=== PATIENT | male | born 1970 | race Hispanic/Latino ===

== ENCOUNTER 2024-12-23 17:19 | Inpatient (IN) | payer SELFPAY ==
[~2024-12-23] VITALS: Ht 157.5 cm; Wt 65.9 kg
[2024-12-23 23:50] VITALS: O2SAT 98
--- NOTE | 2024-12-23 23:50 | NUR ---
RECIEVED PT FROM [facility] VIA EMS. PT AWAKE, ALERT, AND ORIENTED. PT ON HEPARIN DRIP FROM [facility]. PT DENIES CHEST PAIN OR SOB. S/P LHC VIA RIGHT RADIAL AT [facility]. RIGHT RADIAL SITE INTACT, NO HEMATOMA, PULSE PRESENT. ORIENTED TO ROOM AND CALL LIGHT. TELEMETRY MONITORING CALL LIGHT WITHIN REACH
[2024-12-24] VITALS (8 sets, daily range): BP systolic 124–156; BP diastolic 64–96; PULSE 82–98; RESP 16–20; TEMP 98–98.6; O2SAT 97–99
[2024-12-24] MEDS ORDERED: ASPI-449 PO (00:19)
[2024-12-24] MEDS: NITROGLYCERIN 1GM OINT 1 INCH/1GM TD SCH (01:30)
--- NOTE | 2024-12-24 02:57 | HP ---
History of Present Illness Reason for Visit: chest pain History of Present Illness Mr. Patel is a 54-year-old male that was seen and examined today on 12/24/2024. Patient is a good historian of personal health Patient reports that he began to have chest pain on 12/19/2024. Location is left side of chest. Pain radiated to his right arm and the left side of his jaw. Duration is on and off. Character is described as pressure. Symptoms are aggravated with physical activity such as walking and landscaping. There was no alleviating factors. Patient denies any associated shortness of breath. Patient was evaluated at [facility] and underwent an EGD which showed gastric ulcers. Patient also had a heart catheterization on 12/23/2024 that showed multivessel disease. Patient was transferred to [facility] so he could be evaluated by cardiovascular surgeon. Past Medical History Patient History: Hypertension MOTHER Unknown FATHER ADDITIONAL PAST MEDICAL HISTORY: [Anemia, hypertension] SOCIAL HISTORY: [Negative for smoking, alcohol use, drug use. 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 Patient lives alone. Patient is typically independent of all his ADLs. Patient denies difficulty pain is bills.] SURGICAL HISTORY: [Heart stents] Review of Systems General: No Fever, No Chills, No Night Sweats, No Fatigue, No Malaise, No Appetite, No Other HEENT: No Head Aches, No Visual Changes, No Eye Pain, No Ear Pain, No Dysphasia, No Sinus Congestion, No Post Nasal Drip, No Sore Throat, No Other Pulmonary: No Dyspnea, No Cough, No Pleuritic Chest Pain, No Other Cardiovascular: Chest Pain; No: Palpitations, Orthopnea, Paroxysmal Noc. Dyspnea, Edema, Lt Headedness, Other Gastrointestinal: No: Nausea, Vomiting, Abdominal Pain, Diarrhea, Constipation, Melena, Hematochezia, Other Genitourinary: No Dysuria, No Frequency, No Incontinence, No Hematuria, No Retention, No Other Musculoskeletal: No: other, neck pain, shoulder pain, arm pain, back pain, hand pain, leg pain, foot pain Skin: No Urticaria, No Rash, No Other Neurological: No: Weakness, Numbness, Incoordination, Change in speech, Confusion, Seizures, Other Allergies: Coded Allergies: No Known Drug Intolerances (Unverified Allergy, Unknown, 12/24/24) Scheduled Aspirin (Adult Low Dose Aspirin EC), 81 MG PO DAILY, (Reported) Exam Vital Signs Vital Signs Date Time Temp Pulse Resp B/P (MAP) Pulse Ox O2 Delivery O2 Flow Rate FiO2 12/24/24 00:07 98.2 98 18 136/64 98 Room Air 12/23/24 23:50 0 21 General Appearance: Alert, Oriented X3, Cooperative, mild distress HEENT: Atraumatic, PERRLA, EOMI, Mucous membr. moist/pink Respiratory: Clear to auscultation, Normal air movement, NL respiratory effort Cardiovascular: Regular rate, Regular rhythm, Normal S1, Normal S2 Abdominal: Normal bowel sounds, Soft, No tenderness Extremities: No edema Skin: No significant lesion Neuro: Normal speech, Strength at 5/5 X4 ext, Sensation intact, Cranial nerves 3-12 NL Psych/Mental Status: Mental status NL, Mood NL, Thoughts/Content NL Assessment/Plan ASSESSMENT: [ ACS, POA Hypertension Anemia] PLAN: [ Admit patient to pccu as inpatient status. Place patient on telemetry monitoring. Patient will be followed by cardiology service. Patient will be followed by Cardiothoracic Service. Keep patient NPO. Check preprocedure labs, CBC, cMP, magnesium, phosphorus, PTT, UA, type and screen, EKG, CXR Continue heparin drip per orders from previous facility Aspirin 81 mg by mouth once daily Further anticoagulation per Cardiology or cardiovascular service. As needed analgesia with morphine. Nitro paste 0.5 in to anterior chest wall every 8 hours. Hydralazine 10 mg IV every 4 hours for systolic blood pressure greater than 160 mmHg Check iron panel, follow up with the results Check serum ferritin, follow up with the results Check LDH, reticulocyte count, peripheral smear, follow up with the results Monitor labs Transfuse packed red blood cells for hemoglobin less than 7 mg/dL GI prophylaxis, famotidine DVT prophylaxis, Jose's and SCDs and heparin drip as stated above. ADVANCED CARE PLANNING 1. Which of the following were discussed? Hospice Care - Yes Therapeutic options - yes Advance Directives - Yes - patient states he does not have any advance directives in place at this time, however his son Keny Chavis can make decisions for him if he becomes unable. Other discussions - patient wishes to remain a full code at this time. 2. Discussed with who? Patient 3. Voluntary nature of this service was explained to the patient? Yes 4. Amount of time spent - ___16 minutes____ 5. Reviewed by Physician? (if this service was performed by NPP) Yes This document was generated in part using voice recognition software, occasional wrong word or sound alike substitutions may have occurred due to the inherent limitations of voice recognition software. Read the chart carefully and recognize using context, where the substitutions have occurred. Although every effort was made to edit the content, microcomputer technician and typing errors may occur ATTESTATION BY PHYSICIAN I have seen and examined the patient. I reviewed the documentation, medical decision making, and treatment plan as noted by the mid-level provider above. I agree with the findings and plan of care. ANA MARIA CUI [facility] Dec 24, 2024 02:57
[2024-12-24 03:42] LABS: IMMATURE GRANULOCYTE ABSOLUTE 0.03 K/uL (0-1); NUCLEATED RED BLOOD CELLS 0.0 % (0.0-0.19); PLATELET COUNT (AUTO) 377 K/uL (130-400); RED BLOOD CELL COUNT(AUTO) 3.78 MIL/uL (4.50-6.20); RED CELL DISTRIBUTION WIDTH 19.6 % (11.0-15.5); WHITE BLOOD COUNT (AUTO) 6.4 K/uL (4.8-10.8)
[2024-12-24 03:52] LABS: INR 1.04 (0.85-1.15)
[2024-12-24 03:56] LABS: % IRON SATURATION 5.5 % (30-44); IRON, SERUM 20.0 mcg/dL (65-175)
[2024-12-24 04:04] LABS: ASPARTATE AMINOTRANSFERASE 34.0 U/L (10-37); CREATININE 0.9 mg/dL (0.5-1.3); GLOMERULAR FILTR. RATE CALC 100.0 mL/min (>90); GLUCOSE,RANDOM 105.0 mg/dL (70-105); LACTATE DEHYDROGENASE 327.0 U/L (81-234); PHOSPHORUS 2.9 mg/dL (2.5-4.9); SODIUM SERUM 134.0 mmol/L (136-145); TOTAL PROTEIN, SERUM 6.5 g/dL (6.0-8.3); UREA NITROGEN, BLOOD 16.0 mg/dL (7-18)
--- NOTE | 2024-12-24 06:02 | EKG ---
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
--- NOTE | 2024-12-24 08:08 | CONS ---
[facility] CARDIOLOGY CONSULTATION NOTE Date Patient Seen: Dec 24, 2024 Time of Visit: 08:03 Reason for Consultation: CAD History of Present Illness: Patient is a 54-year-old male presents as a transfer from [facility] for coronary artery bypass grafting. He presented initially with complaints of chest pain, with elevated high sensitive troponin with diagnosis of ACS-NSTEMI. Patient is also found via anemic with a hemoglobin of 7.1. Transthoracic echocardiogram revealed a normal left ventricular systolic function with EF 55- 60%. EGD present negative for active bleeding ulcers. He underwent left heart catheterization, coronary angiography revealing multivessel coronary artery disease, evaluated by Cardiothoracic surgery and coronary artery bypass grafting was recommended. Past Medical History: no PMH prior to hospitalization Past Surgical History: denies Family History: denies early CAD Social History: Negative for smoking, alcohol use, drug use. 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 Patient lives alone. Patient is typically independent of all his ADLs. Patient denies difficulty pain is bills Current Meds: Current Medications Medications Dose Ordered Sig/Mila Start Time Stop Time Status Last Admin Heparin Sodium (Porcine) *calculation based on ACTUAL B... AD PRN 12/24/24 02:30 01/23/25 02:29 12/24/24 02:07 Heparin Sodium/ Dextrose 250 ml @ 0 mls/hr Q6H 12/24/24 02:30 01/23/25 02:29 12/24/24 02:08 Nitroglycerin 0.5 inch Q8H5 12/24/24 01:30 01/23/25 01:29 Acetaminophen 650 mg Q6H PRN 12/24/24 01:30 01/23/25 01:29 12/24/24 02:02 Aspirin 81 mg DAILY 12/24/24 09:00 01/23/25 08:59 Acetaminophen 650 mg Q6H PRN 12/24/24 03:00 01/23/25 02:59 Famotidine 20 mg DAILY 12/24/24 09:00 01/23/25 08:59 Hydralazine HCl 10 mg Q6H PRN 12/24/24 03:00 01/23/25 02:59 Morphine Sulfate 2 mg Q4H PRN 12/24/24 03:00 12/31/24 02:59 Lactulose 20 gm BID PRN 12/24/24 03:00 01/23/25 02:59 Ondansetron HCl 4 mg Q6H PRN 12/24/24 03:00 01/23/25 02:59 Review of Systems: `0 point ROS negative unless stated. Physical Examination: GENERAL: [No acute distress.] HEAD: [Normal with no signs of head trauma.] NECK: [Supple .Normal carotid upstrokes without bruits.] LUNGS: [Clear breath sounds bilaterally.No wheezes, or rhonchi.] HEART: [Normal rate and rhythm. Normal S1 and S2 without murmurs, gallop or rub.] VASC: [Peripheral pulses +2 bilaterally.] ABD: soft, nontender, no masses] EXT: [No clubbing, cyanosis or edema.] SKIN: [No rashes or lesions noted.] NEURO: [Awake, alert, and oriented x3. No focal sensory or strength deficits noted.] Vital Signs (last 8hr) Date Time Temp Pulse Resp B/P (MAP) Pulse Ox O2 Delivery O2 Flow Rate FiO2 12/24/24 07:00 98.6 84 16 138/85 99 Room Air 12/24/24 03:00 98.2 82 18 124/85 99 Room Air 12/24/24 00:07 98.2 98 18 136/64 98 Room Air Laboratory: [ ] Hematology Labs: Test 12/24/24 03:16 Range/Units White Blood Count 6.4 4.8-10.8 K/uL Red Blood Count 3.78 L 4.50-6.20 MIL/uL Hemoglobin 8.3 L 14.0-18.0 g/dL Hematocrit 27.4 L 42-54 % Mean Corpuscular Volume 72.5 L 79-99 fL Mean Corpuscular Hemoglobin 22.0 L 27.0-33.0 pg Mean Corpuscular Hemoglobin Concent 30.3 L 32.0-36.0 g/dL Red Cell Distribution Width 19.6 H 11.0-15.5 % Platelet Count 377 130-400 K/uL Mean Platelet Volume 9.6 7.5-10.5 fL Immature Granulocyte % (Auto) 0.5 0-1 % Neutrophils (%) (Auto) 58.8 40.0-77.0 % Lymphocytes (%) (Auto) 28.6 21.0-51.0 % Monocytes (%) (Auto) 8.9 3.0-13.0 % Eosinophils (%) (Auto) 2.7 0.0-8.0 % Basophils (%) (Auto) 0.5 0.0-5.0 % Neutrophils # (Auto) 3.8 1.8-7.7 K/uL Lymphocytes # (Auto) 1.8 1.0-4.8 K/uL Monocytes # (Auto) 0.6 0.1-1.0 K/uL Eosinophils # (Auto) 0.17 0.00-0.70 K/uL Basophils # (Auto) 0.03 0.00-0.20 K/uL Absolute Immature Granulocyte (auto 0.03 0-1 K/uL Nucleated Red Blood Cells 0.0 0.0-0.19 % Red Blood Cell Morphology See comments Reticulocyte Count (auto) 2.08710 H 0.42-2.23 % Immature Reticulocyte Fraction 42.60 H 0.18-0.48 % Chemistry Labs: Test 12/24/24 03:16 Range/Units Sodium Level 134 L 136-145 mmol/L Potassium Level 3.9 3.5-5.1 mmol/L Chloride Level 101 101-111 mmol/L Carbon Dioxide Level 24 21-32 mmol/L Blood Urea Nitrogen 16 7-18 mg/dL Creatinine 0.9 0.5-1.3 mg/dL Glomerular Filtration Rate Calc 100 >90 mL/min Random Glucose 105 70-105 mg/dL Hemoglobin A1c 5.8 4.0-6.0 % Estimated Average Glucose (eAG) 120 70-126 mg/dL Total Calcium 8.4 L 8.5-10.1 mg/dL Phosphorus Level 2.9 2.5-4.9 mg/dL Magnesium Level 1.90 1.80-2.40 mg/dL Iron Level 20 L 65-175 mcg/dL Total Iron Binding Capacity 360 250-450 mcg/dL Percent Iron Saturation 5.5 L 30-44 % Total Bilirubin 0.3 0.2-1.0 mg/dL Aspartate Amino Transf (AST/SGOT) 34 10-37 U/L Alanine Aminotransferase (ALT/SGPT) 42 12-78 U/L Alkaline Phosphatase 56 50-136 U/L Lactate Dehydrogenase 327 H 81-234 U/L Total Protein 6.5 6.0-8.3 g/dL Albumin 2.7 L 3.5-5.0 g/dL Coagulation Labs: Test 12/24/24 03:16 Range/Units Prothrombin Time 11.0 9.6-11.6 SEC Prothromb Time International Ratio 1.04 0.85-1.15 Activated Partial Thromboplast Time 107.8 #*H 26.3-35.5 SEC Assessment: ACS-NSTEMI MVCAD Hypertension Anemia Plan: Continue ASA Resume high intensity statin If surgery not planned next 1-2 days, will add beta dante Unclear of what medications he was receiving at [facility]. Medication reconciliation needs to be performed. There was no discharge summary in the paper chart. I've asked primary RN to attempt to obtain additional information from the transferring hospital, and relay to admitting team issues regarding med rec. Timing of CABG per MACEY OQUENDO DO Dec 24, 2024 08:08
[2024-12-24] MEDS: FAMOTIDINE 20MG TAB PO SCH (08:31)
[2024-12-24] MEDS: ASPIRIN 81 MG EC TAB PO SCH (08:31)
--- NOTE | 2024-12-24 09:13 | HMCIMG ---
CHEST 1VW REASON: pre procedural COMPARISON: None. FINDINGS: Single view of the chest was obtained. Lungs are clear. There is hyperaeration of lungs with flattening of both hemidiaphragms.. Heart size is normal. There is no pulmonary vascular congestion. Mediastinum and bony thorax appear unremarkable. IMPRESSION: 1. No evidence of airspace consolidation or pulmonary venous congestion 2. Hyperaeration of lungs suggesting of chronic obstructive pulmonary disease
--- NOTE | 2024-12-24 10:31 | NUR ---
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 HAS SON WHO LIVES IN [place] BUT COMES BACK AND FORTH ' ALL THE TIME' SO HE WILL SUPPLY TRANSPORT ON DISCHARGE. STATES THAT HE WAS A CLIENT OF [facility] THE [place] ([address] [place]WHEN HE IS DISCHARGED PLANS TO USE THAT HIS PRIRY CLINIC AGAIN. DISCUSSED GOOD RX- AND ATTEMPTED TO SHOW HIM HOW TO INSTALL ON HIS PHONE BUT HE STATES HIS SON WOULD HELP HIM. COMMUNITY [employer] INFO GIVEN Addendum: 12/25/24 at 1036 by JEREMY SHAFFER RN CM Amended: Links added.
[2024-12-25] VITALS (8 sets, daily range): BP systolic 120–162; BP diastolic 75–93; PULSE 70–94; RESP 20; TEMP 97.9–99.2; O2SAT 98–99
[2024-12-25 09:29] LABS: NUCLEATED RED BLOOD CELLS 0.0 % (0.0-0.19); PLATELET COUNT (AUTO) 384.0 K/uL (130-400); RED BLOOD CELL COUNT(AUTO) 4.02 MIL/uL (4.50-6.20); RED CELL DISTRIBUTION WIDTH 19.5 % (11.0-15.5); WHITE BLOOD COUNT (AUTO) 5.4 K/uL (4.8-10.8)
[2024-12-25 09:38] LABS: CREATININE 1.0 mg/dL (0.5-1.3); GLOMERULAR FILTR. RATE CALC 88.0 mL/min (>90); GLUCOSE,RANDOM 146.0 mg/dL (70-105); SODIUM SERUM 137.0 mmol/L (136-145); UREA NITROGEN, BLOOD 13.0 mg/dL (7-18)
[2024-12-25 09:42] LABS: ASPARTATE AMINOTRANSFERASE 30.0 U/L (10-37); TOTAL PROTEIN, SERUM 6.6 g/dL (6.0-8.3)
--- NOTE | 2024-12-25 13:05 | PN ---
This is a 54-year-old male who presented to [facility] with a non-STEMI. He underwent left heart catheterization which showed severe multi-vessel coronary artery disease with mid to apical inferior hypokinesis, LVEF 45-50%. He underwent echocardiogram 12/19/2024 which showed an ejection fraction of 55- 60%, mild LVH, normal-sized left atrium, mild mitral valve regurgitation and mild tricuspid valve regurgitation. He was transferred to [facility] for CABG. He is currently in sinus rhythm with heart rates in the 80s. His most recent blood pressure is 137/90. White blood count 5.4, hemoglobin 8.8, hematocrit 29.0, platelets 384, creatinine 1.0, potassium 3.7, magnesium 1.80. He denies chest pain, shortness or breath, dizziness or weakness. On exam, he is in no acute distress, regular rate and rhythm, lungs are clear to auscultation bilaterally, no lower extremity edema is noted. Assessment: 1. Non-STEMI. 2. Multi-vessel coronary artery disease. 3. Mild ischemic cardiomyopathy with LVEF 45-50 by left heart catheterization. 4. Hypertension. 5. Anemia. Plan: 1. He presented to [facility] with a non-STEMI and underwent left heart catheterization showing severe multivessel coronary artery disease. He is pending evaluation by CT surgery for consideration of CABG. 2. Continue aspirin 81 mg once daily and atorvastatin 40 mg once daily. 3. He has been hypertensive. Start metoprolol tartrate 25 mg twice daily. 4. We will follow the patient. Vitals/Labs Vital Signs Date Time Temp Pulse Resp B/P (MAP) Pulse Ox O2 Delivery O2 Flow Rate FiO2 12/25/24 08:00 98 Room Air* 0 21 12/25/24 07:36 98.6 83 20 137/90 Laboratory Tests 12/25/24 09:23 MATT TURNER Dec 25, 2024 13:05
--- NOTE | 2024-12-25 14:32 | PN ---
[facility] PROGRESS NOTE Date of Service: Dec 25, 2024 Time of Service: 14:31 SUBJECTIVE: This is a 54-year-old male who presented to [facility] with a non-STEMI. He underwent left heart catheterization which showed severe multi-vessel coronary artery disease with mid to apical inferior hypokinesis, LVEF 45-50%. He underwent echocardiogram 12/19/2024 which showed an ejection fraction of 55- 60%, mild LVH, normal-sized left atrium, mild mitral valve regurgitation and mild tricuspid valve regurgitation. He was transferred to [facility] for CABG. 12/25 patient remains admitted to the PCU, case discussed with the RN, no acute events overnight, he denied chest pain, shortness shortness for breath, no nausea, no vomiting, no abdominal discomfort. Cardiology input noted and appreciated, patient to continue aspirin 81 mg p.o. daily and atorvastatin 40 mg p.o. daily. Continue metoprolol tartrate 25 mg p.o. b.i.d.. Pending evaluation by CT surgery for consideration for CABG. Discussed with the patient. REVIEW OF SYSTEMS CONSTITUTIONAL: Denies fevers, chills, or night sweats. No unintentional weight loss reported. NEUROLOGICAL: Denies headache, amaurosis fugax, motor weakness, sensory deficit, vertigo/spinning sensation, gait abnormalities, or tremors. ENT: No hearing loss, otalgia, otorrhea, rhinitis, rhinorrhea, hoarseness, or sore throat. CARDIOVASCULAR: Denies any exertional angina, dyspnea on exertion, orthopnea, paroxysmal nocturnal dyspnea, palpitations, life-threatening arrhythmias, claudication. PULMONARY: Denies any shortness of breath, cough, phlegm/sputum, hemoptysis, pleuritic chest pain. SLEEP: Denies morning headaches, daytime somnolence or napping. Denies difficulty falling asleep, staying asleep, waking from sleep. Denies knowledge of snoring. GASTROINTESTINAL: Denies any type of dysphagia to either liquids or solids. Denies nausea, vomiting, pyrosis, early satiety, abdominal pain, diarrhea, constipation, or changes in stool consistency or caliber. Denies coffee-ground emesis, hematemesis, hematochezia, or melanotic stools. GENITOURINARY: Denies frequency, urgency, nocturia, hematuria or incontinence (Storage/Irritative symptoms.) Low urinary stream, straining to void, urinary intermittency or hesitancy, splitting of the voiding stream, terminal dribbling. ENDOCRINOLOGIC: Denies polyuria, polydipsia, polyphagia or heat/cold intolerances. HEMATOLOGIC: Denies thrombophilia/previous clots, or coagulopathy/bleeding disorders. ONCOLOGIC: Denies personal history of malignancy. DERMATOLOGIC: Denies rashes or pruritus. PSYCHIATRIC: Denies any suicidal or homicidal ideation. Denies hallucinations. PHYSICAL EXAM GENERAL APPEARANCE: The patient is awake, alert, and oriented, in no acute cardiopulmonary distress. NEUROLOGICAL: Cranial nerves II-XII grossly intact. Motor is 5/5 in bilateral upper and lower extremities proximal to distal. No sensory deficits. HEENT: Face is symmetric. Pupils are equal and reactive. Extraocular movements are intact. NECK: Supple. No JVD. No thyromegaly. No submental, submandibular, pre- /postauricular, occipital or supraclavicular lymphadenopathy. CHEST: Normal chest expansion. No Telemetry. LUNGS: Absence of any rales, rhonchi or any wheezing. CARDIOVASCULAR: Regular. S1 and S2 normal. No appreciable rubs, murmurs or gallops. ABDOMEN: Soft, nontender, and nondistended. There is no rebound, voluntary guarding, or rigidity. : Deferred. No Andres. EXTREMITIES: Non-edematous and not cyanotic. No clubbing. Good capillary refill. SKIN: No skin breakdown. Vital Signs (last 8hr) Date Time Temp Pulse Resp B/P (MAP) Pulse Ox O2 Delivery O2 Flow Rate FiO2 12/25/24 12:00 97.9 85 20 126/75 99 Room Air 12/25/24 08:00 98 Room Air* 0 21 12/25/24 07:36 98.6 83 20 137/90 99 Room Air LABS: Laboratory: Test 12/25/24 09:23 12/25/24 01:39 12/24/24 03:16 Range/Units White Blood Count 5.4 4.8-10.8 K/uL Red Blood Count 4.02 L 4.50-6.20 MIL/uL Hemoglobin 8.8 L 14.0-18.0 g/dL Hematocrit 29.0 L 42-54 % Mean Corpuscular Volume 72.1 L 79-99 fL Mean Corpuscular Hemoglobin 21.9 L 27.0-33.0 pg Mean Corpuscular Hemoglobin Concent 30.3 L 32.0-36.0 g/dL Red Cell Distribution Width 19.5 H 11.0-15.5 % Platelet Count 384 130-400 K/uL Mean Platelet Volume 9.0 7.5-10.5 fL Nucleated Red Blood Cells 0.0 0.0-0.19 % Sodium Level 137 136-145 mmol/L Potassium Level 3.7 3.5-5.1 mmol/L Chloride Level 102 101-111 mmol/L Carbon Dioxide Level 26 21-32 mmol/L Blood Urea Nitrogen 13 7-18 mg/dL Creatinine 1.0 0.5-1.3 mg/dL Glomerular Filtration Rate Calc 88 >90 mL/min Random Glucose 146 H 70-105 mg/dL Total Calcium 8.6 8.5-10.1 mg/dL Magnesium Level 1.80 1.80-2.40 mg/dL Total Bilirubin 0.2 0.2-1.0 mg/dL Aspartate Amino Transf (AST/SGOT) 30 10-37 U/L Alanine Aminotransferase (ALT/SGPT) 54 12-78 U/L Alkaline Phosphatase 63 50-136 U/L Total Protein 6.6 6.0-8.3 g/dL Albumin 2.7 L 3.5-5.0 g/dL Activated Partial Thromboplast Time 58.4 #H 26.3-35.5 SEC Immature Granulocyte % (Auto) 0.5 0-1 % Neutrophils (%) (Auto) 58.8 40.0-77.0 % Lymphocytes (%) (Auto) 28.6 21.0-51.0 % Monocytes (%) (Auto) 8.9 3.0-13.0 % Eosinophils (%) (Auto) 2.7 0.0-8.0 % Basophils (%) (Auto) 0.5 0.0-5.0 % Neutrophils # (Auto) 3.8 1.8-7.7 K/uL Lymphocytes # (Auto) 1.8 1.0-4.8 K/uL Monocytes # (Auto) 0.6 0.1-1.0 K/uL Eosinophils # (Auto) 0.17 0.00-0.70 K/uL Basophils # (Auto) 0.03 0.00-0.20 K/uL Absolute Immature Granulocyte (auto 0.03 0-1 K/uL Red Blood Cell Morphology See comments Reticulocyte Count (auto) 2.45918 H 0.42-2.23 % Immature Reticulocyte Fraction 42.60 H 0.18-0.48 % Prothrombin Time 11.0 9.6-11.6 SEC Prothromb Time International Ratio 1.04 0.85-1.15 Hemoglobin A1c 5.8 4.0-6.0 % Estimated Average Glucose (eAG) 120 70-126 mg/dL Phosphorus Level 2.9 2.5-4.9 mg/dL Iron Level 20 L 65-175 mcg/dL Total Iron Binding Capacity 360 250-450 mcg/dL Percent Iron Saturation 5.5 L 30-44 % Lactate Dehydrogenase 327 H 81-234 U/L Current Medications Medications (Trade) Dose Ordered Sig/Mila Route PRN Reason Start Time Stop Time Status Last Admin Dose Admin Acetaminophen (TYLenol 325MG TAB) 650 mg Q6H PRN PO MILD PAIN (1-3) 12/24/24 01:30 01/23/25 01:29 12/24/24 02:02 650 MG Acetaminophen (TYLenol 325MG TAB) 650 mg Q6H PRN PO TEMPERATURE GREATER THAN 101.5 12/24/24 03:00 01/23/25 02:59 Aspirin (Aspirin 81mg Ec Tab) 81 mg DAILY PO 12/24/24 09:00 01/23/25 08:59 12/25/24 08:33 81 MG Atorvastatin Calcium (LIPItor 40MG) 40 mg HS PO 12/24/24 21:00 01/23/25 20:59 12/24/24 20:35 40 MG Famotidine (Pepcid 20mg Tab) 20 mg DAILY PO 12/24/24 09:00 01/23/25 08:59 12/25/24 08:33 20 MG Heparin Sodium (Porcine) (HEParin 5,000 UNIT VIAL) *calculation based on ACTUAL B... AD PRN IV HEPARIN PROTOCOL 12/24/24 02:30 01/23/25 02:29 12/24/24 17:32 5,000 UNIT Heparin Sodium/ Dextrose 250 ml @ 0 mls/hr Q6H IV 12/24/24 02:30 01/23/25 02:29 12/25/24 13:46 12.19 MLS/HR Hydralazine HCl (APRESOLine 20MG INJ) 10 mg Q6H PRN IV For:SBP above 160;DBP above 90 12/24/24 03:00 01/23/25 02:59 Lactulose (Constulose 20gm/ 30ml Udcup) 20 gm BID PRN PO CONSTIPATION 12/24/24 03:00 01/23/25 02:59 Metoprolol Tartrate (loprESSOR) 25 mg BID PO 12/25/24 21:00 01/24/25 20:59 Morphine Sulfate (morPHINE 2MG SYG) 2 mg Q4H PRN IVP SEVERE PAIN (7-10) 12/24/24 03:00 12/31/24 02:59 Nitroglycerin (Nitroglycerin 1gm Oint) 0.5 inch Q8H5 TD 12/24/24 01:30 01/23/25 01:29 12/25/24 13:42 0.5 INCH Ondansetron HCl (zoFRAN 4MG INJ) 4 mg Q6H PRN IV NAUSEA/VOMITING 12/24/24 03:00 01/23/25 02:59 DIAGNOSTICS / RADIOLOGY: [ ] ASSESSMENT: 1. Non-STEMI. 2. Multi-vessel coronary artery disease. 3. Mild ischemic cardiomyopathy with LVEF 45-50 by left heart catheterization. 4. Hypertension. 5. Anemia. PLAN: NEURO: Minimize central acting medications as possible. Fall Precautions. Well lighted room through the day and minimize interruptions through the night to prevent acute delirium. PULMONARY: Supplemental 02 as needed BiPAP as necessary, for respiratory distress Titrate Fio2 to keep Spo2 > or = 90% DuoNebs and CPT as needed IS hourly while awake for pulmonary hygiene prn Out of bed to chair as tolerated Maintain aspiration precautions at all times CARDIOVASCULAR: Follow hemodynamics. Vital signs per facility protocol GI & NUTRITION: Continue nutritional support Aspirations precautions Prokinetic agents and laxatives as needed KIDNEYS & ELECTROLYTES: Strict monitoring of intake and output Daily weights Avoid nephrotoxic agents Monitor electrolytes and replace as needed Goal urine output of 30mL/hr or 0.5mL/kg/hr Medications to be dosed according to renal function. Avoid contrast if possible ENDOCRINE: Maintain blood glucose between 100-180 at all times. Insulin sliding scale for blood glucose management Hypoglycemia and hyperglycemia protocol in place INFECTIOUS DISEASE: Trend temperature, WBC and procalcitonin level Follow cultures, deescalate antibiotics as soon as possible. Panculture if new onset fever HEMATOLOGY & COAGULATION: Monitor H&H. Keep Hgb > 7 Transfuse 1 unit of PRBC for Hgb < 7 Transfuse 1 pack of platelets of platelets < 20, 000 Watch for any signs and symptoms of bleeding SKIN: Pressure ulcer prevention per facility protocol Specialty mattress as needed ORTHO/REHAB Continue PT/OT PRN: MEDICATIONS Tylenol 650 mg po every 4 hrs for fever zofran 4 mg IV every 6 hrs for n/v Hydralazine 5 mg IV every 4 hrs systolic pressure > 160 bowel regiment: lactulose 20 gm PO BID PRN constipation Supportive measures: Continue GI and DVT prophylaxis Disposition: Pending evaluation by CT surgery for consideration of CABG. All questions answered time spent: > 35 min BURKE SULLIVAN MD Dec 25, 2024 14:32
[2024-12-26] VITALS (7 sets, daily range): BP systolic 138–154; BP diastolic 79–90; PULSE 71–81; RESP 18–20; TEMP 97.6–98.5; O2SAT 100
--- NOTE | 2024-12-26 08:43 | PN ---
[facility] PROGRESS NOTE Date of Service: Dec 26, 2024 Time of Service: 08:43 SUBJECTIVE: This is a 54-year-old male who presented to [facility] with a non-STEMI. He underwent left heart catheterization which showed severe multi-vessel coronary artery disease with mid to apical inferior hypokinesis, LVEF 45-50%. He underwent echocardiogram 12/19/2024 which showed an ejection fraction of 55- 60%, mild LVH, normal-sized left atrium, mild mitral valve regurgitation and mild tricuspid valve regurgitation. He was transferred to [facility] for CABG. 12/25 patient remains admitted to the PCU, case discussed with the RN, no acute events overnight, he denied chest pain, shortness shortness for breath, no nausea, no vomiting, no abdominal discomfort. Cardiology input noted and appreciated, patient to continue aspirin 81 mg p.o. daily and atorvastatin 40 mg p.o. daily. Continue metoprolol tartrate 25 mg p.o. b.i.d.. Pending evaluation by CT surgery for consideration for CABG. Discussed with the patient. 12/26 patient remains admitted to the PCU, case discussed with the RN, no acute events overnight, the time of my visit the patient is comfortably in bed, alert oriented x3, eating breakfast, tolerating well, denies nausea, no vomiting, no abdominal discomfort, he denies chest pain, no shortness a breath. Remains on aspirin 81 mg p.o. daily, atorvastatin and metoprolol 25 mg p.o. b.i.d.. Pending evaluation by CT surgery for consideration of CABG. REVIEW OF SYSTEMS CONSTITUTIONAL: Denies fevers, chills, or night sweats. No unintentional weight loss reported. NEUROLOGICAL: Denies headache, amaurosis fugax, motor weakness, sensory deficit, vertigo/spinning sensation, gait abnormalities, or tremors. ENT: No hearing loss, otalgia, otorrhea, rhinitis, rhinorrhea, hoarseness, or sore throat. CARDIOVASCULAR: Denies any exertional angina, dyspnea on exertion, orthopnea, paroxysmal nocturnal dyspnea, palpitations, life-threatening arrhythmias, claudication. PULMONARY: Denies any shortness of breath, cough, phlegm/sputum, hemoptysis, pleuritic chest pain. SLEEP: Denies morning headaches, daytime somnolence or napping. Denies difficulty falling asleep, staying asleep, waking from sleep. Denies knowledge of snoring. GASTROINTESTINAL: Denies any type of dysphagia to either liquids or solids. Denies nausea, vomiting, pyrosis, early satiety, abdominal pain, diarrhea, constipation, or changes in stool consistency or caliber. Denies coffee-ground emesis, hematemesis, hematochezia, or melanotic stools. GENITOURINARY: Denies frequency, urgency, nocturia, hematuria or incontinence (Storage/Irritative symptoms.) Low urinary stream, straining to void, urinary intermittency or hesitancy, splitting of the voiding stream, terminal dribbling. ENDOCRINOLOGIC: Denies polyuria, polydipsia, polyphagia or heat/cold intolerances. HEMATOLOGIC: Denies thrombophilia/previous clots, or coagulopathy/bleeding disorders. ONCOLOGIC: Denies personal history of malignancy. DERMATOLOGIC: Denies rashes or pruritus. PSYCHIATRIC: Denies any suicidal or homicidal ideation. Denies hallucinations. PHYSICAL EXAM GENERAL APPEARANCE: The patient is awake, alert, and oriented, in no acute cardiopulmonary distress. NEUROLOGICAL: Cranial nerves II-XII grossly intact. Motor is 5/5 in bilateral upper and lower extremities proximal to distal. No sensory deficits. HEENT: Face is symmetric. Pupils are equal and reactive. Extraocular movements are intact. NECK: Supple. No JVD. No thyromegaly. No submental, submandibular, pre-/po stauricular, occipital or supraclavicular lymphadenopathy. CHEST: Normal chest expansion. No Telemetry. LUNGS: Absence of any rales, rhonchi or any wheezing. CARDIOVASCULAR: Regular. S1 and S2 normal. No appreciable rubs, murmurs or gallops. ABDOMEN: Soft, nontender, and nondistended. There is no rebound, voluntary guarding, or rigidity. : Deferred. No Andres. EXTREMITIES: Non-edematous and not cyanotic. No clubbing. Good capillary refill. SKIN: No skin breakdown. Vital Signs (last 8hr) Date Time Temp Pulse Resp B/P (MAP) Pulse Ox O2 Delivery O2 Flow Rate FiO2 12/26/24 07:57 97.5 74 18 138/86 100 Room Air 12/26/24 03:57 98.4 72 20 138/89 100 Room Air LABS: Laboratory: Test 12/26/24 01:28 12/25/24 09:23 Range/Units Activated Partial Thromboplast Time 66.7 H 26.3-35.5 SEC White Blood Count 5.4 4.8-10.8 K/uL Red Blood Count 4.02 L 4.50-6.20 MIL/uL Hemoglobin 8.8 L 14.0-18.0 g/dL Hematocrit 29.0 L 42-54 % Mean Corpuscular Volume 72.1 L 79-99 fL Mean Corpuscular Hemoglobin 21.9 L 27.0-33.0 pg Mean Corpuscular Hemoglobin Concent 30.3 L 32.0-36.0 g/dL Red Cell Distribution Width 19.5 H 11.0-15.5 % Platelet Count 384 130-400 K/uL Mean Platelet Volume 9.0 7.5-10.5 fL Nucleated Red Blood Cells 0.0 0.0-0.19 % Sodium Level 137 136-145 mmol/L Potassium Level 3.7 3.5-5.1 mmol/L Chloride Level 102 101-111 mmol/L Carbon Dioxide Level 26 21-32 mmol/L Blood Urea Nitrogen 13 7-18 mg/dL Creatinine 1.0 0.5-1.3 mg/dL Glomerular Filtration Rate Calc 88 >90 mL/min Random Glucose 146 H 70-105 mg/dL Total Calcium 8.6 8.5-10.1 mg/dL Magnesium Level 1.80 1.80-2.40 mg/dL Total Bilirubin 0.2 0.2-1.0 mg/dL Aspartate Amino Transf (AST/SGOT) 30 10-37 U/L Alanine Aminotransferase (ALT/SGPT) 54 12-78 U/L Alkaline Phosphatase 63 50-136 U/L Total Protein 6.6 6.0-8.3 g/dL Albumin 2.7 L 3.5-5.0 g/dL Current Medications Medications (Trade) Dose Ordered Sig/Mila Route PRN Reason Start Time Stop Time Status Last Admin Dose Admin Acetaminophen (TYLenol 325MG TAB) 650 mg Q6H PRN PO MILD PAIN (1-3) 12/24/24 01:30 01/23/25 01:29 12/26/24 04:54 650 MG Acetaminophen (TYLenol 325MG TAB) 650 mg Q6H PRN PO TEMPERATURE GREATER THAN 101.5 12/24/24 03:00 01/23/25 02:59 Aspirin (Aspirin 81mg Ec Tab) 81 mg DAILY PO 12/24/24 09:00 01/23/25 08:59 12/25/24 08:33 81 MG Atorvastatin Calcium (LIPItor 40MG) 40 mg HS PO 12/24/24 21:00 01/23/25 20:59 12/25/24 20:43 40 MG Famotidine (Pepcid 20mg Tab) 20 mg DAILY PO 12/24/24 09:00 01/23/25 08:59 12/25/24 08:33 20 MG Heparin Sodium (Porcine) (HEParin 5,000 UNIT VIAL) *calculation based on ACTUAL B... AD PRN IV HEPARIN PROTOCOL 12/24/24 02:30 01/23/25 02:29 12/24/24 17:32 5,000 UNIT Heparin Sodium/ Dextrose 250 ml @ 0 mls/hr Q6H IV 12/24/24 02:30 01/23/25 02:29 12/26/24 05:26 12.2 MLS/HR Hydralazine HCl (APRESOLine 20MG INJ) 10 mg Q6H PRN IV For:SBP above 160;DBP above 90 12/24/24 03:00 01/23/25 02:59 Lactulose (Constulose 20gm/ 30ml Udcup) 20 gm BID PRN PO CONSTIPATION 12/24/24 03:00 01/23/25 02:59 Metoprolol Tartrate (loprESSOR) 25 mg BID PO 12/25/24 21:00 01/24/25 20:59 12/25/24 20:43 25 MG Morphine Sulfate (morPHINE 2MG SYG) 2 mg Q4H PRN IVP SEVERE PAIN (7-10) 12/24/24 03:00 12/31/24 02:59 12/26/24 02:43 2 MG Nitroglycerin (Nitroglycerin 1gm Oint) 0.5 inch Q8H5 TD 12/24/24 01:30 01/23/25 01:29 12/25/24 20:43 0.5 INCH Ondansetron HCl (zoFRAN 4MG INJ) 4 mg Q6H PRN IV NAUSEA/VOMITING 12/24/24 03:00 01/23/25 02:59 DIAGNOSTICS / RADIOLOGY: [ ] ASSESSMENT: 1. Non-STEMI. 2. Multi-vessel coronary artery disease. 3. Mild ischemic cardiomyopathy with LVEF 45-50 by left heart catheterization. 4. Hypertension. 5. Anemia. PLAN: NEURO: Minimize central acting medications as possible. Fall Precautions. Well lighted room through the day and minimize interruptions through the night to prevent acute delirium. PULMONARY: Supplemental 02 as needed BiPAP as necessary, for respiratory distress Titrate Fio2 to keep Spo2 > or = 90% DuoNebs and CPT as needed IS hourly while awake for pulmonary hygiene prn Out of bed to chair as tolerated Maintain aspiration precautions at all times CARDIOVASCULAR: Follow hemodynamics. Vital signs per facility protocol GI & NUTRITION: Continue nutritional support Aspirations precautions Prokinetic agents and laxatives as needed KIDNEYS & ELECTROLYTES: Strict monitoring of intake and output Daily weights Avoid nephrotoxic agents Monitor electrolytes and replace as needed Goal urine output of 30mL/hr or 0.5mL/kg/hr Medications to be dosed according to renal function. Avoid contrast if possible ENDOCRINE: Maintain blood glucose between 100-180 at all times. Insulin sliding scale for blood glucose management Hypoglycemia and hyperglycemia protocol in place INFECTIOUS DISEASE: Trend temperature, WBC and procalcitonin level Follow cultures, deescalate antibiotics as soon as possible. Panculture if new onset fever HEMATOLOGY & COAGULATION: Monitor H&H. Keep Hgb > 7 Transfuse 1 unit of PRBC for Hgb < 7 Transfuse 1 pack of platelets of platelets < 20, 000 Watch for any signs and symptoms of bleeding SKIN: Pressure ulcer prevention per facility protocol Specialty mattress as needed ORTHO/REHAB Continue PT/OT PRN: MEDICATIONS Tylenol 650 mg po every 4 hrs for fever zofran 4 mg IV every 6 hrs for n/v Hydralazine 5 mg IV every 4 hrs systolic pressure > 160 bowel regiment: lactulose 20 gm PO BID PRN constipation Supportive measures: Continue GI and DVT prophylaxis Disposition: Pending evaluation by CT surgery for consideration of CABG. All questions answered time spent: > 35 min BURKE SULLIVAN MD Dec 26, 2024 08:43
[2024-12-26 08:52] LABS: NUCLEATED RED BLOOD CELLS 0.0 % (0.0-0.19); PLATELET COUNT (AUTO) 397.0 K/uL (130-400); RED BLOOD CELL COUNT(AUTO) 4.17 MIL/uL (4.50-6.20); RED CELL DISTRIBUTION WIDTH 19.2 % (11.0-15.5); WHITE BLOOD COUNT (AUTO) 5.5 K/uL (4.8-10.8)
[2024-12-26 09:16] LABS: ASPARTATE AMINOTRANSFERASE 24.0 U/L (10-37); CREATININE 1.1 mg/dL (0.5-1.3); GLOMERULAR FILTR. RATE CALC 79.0 mL/min (>90); GLUCOSE,RANDOM 128.0 mg/dL (70-105); SODIUM SERUM 139.0 mmol/L (136-145); TOTAL PROTEIN, SERUM 6.7 g/dL (6.0-8.3); UREA NITROGEN, BLOOD 14.0 mg/dL (7-18)
[2024-12-26] MEDS ORDERED: PoTASSium chl 10% ELIXIR 20MEQ 20 MEQ/15 ML UDCUP PO PRN (15:00)
[2024-12-26] MEDS ORDERED: MAGNESIUM 2GM PREMIX 50ML 50 ML IV PRN (15:00)
[2024-12-26] MEDS: PoTASSium chloRIDE 20MEQ ER 20 MEQ ERTAB PO PRN (15:18)
[2024-12-26 16:49] LABS: ABG BASE EXCESS -1.0 mmol/L (-2.0-3.0); ABG HCO3 22.0 mmol/L (21.0-28.0); ABG OXYGEN SATURATION 96.9 % (94.0-98.0); ABG PCO2 32 mmHg (35-48); ABG PH 7.451 (7.350-7.450); DEVICE COMMENT LB JOHNNY; PO2, ARTERIAL BG 85.2 mmHg (83.0-108.0); TEMPERATURE, CELSIUS BG 37.0 CELSIUS (35.5-37.0); VENT MODE, BG RA (ROOM AIR)
[2024-12-26] MEDS: LACTULOSE 20 GM/30 ML UDCUP PO PRN (21:30)
[2024-12-27] VITALS (9 sets, daily range): BP systolic 129–158; BP diastolic 78–93; PULSE 73–85; RESP 18; TEMP 97.6–98.7; O2SAT 98–100
[2024-12-27 04:25] LABS: NUCLEATED RED BLOOD CELLS 0.0 % (0.0-0.19); PLATELET COUNT (AUTO) 486.0 K/uL (130-400); RED BLOOD CELL COUNT(AUTO) 4.44 MIL/uL (4.50-6.20); RED CELL DISTRIBUTION WIDTH 19.1 % (11.0-15.5); WHITE BLOOD COUNT (AUTO) 6.6 K/uL (4.8-10.8)
[2024-12-27 04:31] LABS: INR 1.03 (0.85-1.15)
[2024-12-27 04:35] LABS: CREATININE 1.0 mg/dL (0.5-1.3); GLOMERULAR FILTR. RATE CALC 88.0 mL/min (>90); GLUCOSE,RANDOM 129.0 mg/dL (70-105); SODIUM SERUM 135.0 mmol/L (136-145); UREA NITROGEN, BLOOD 14.0 mg/dL (7-18)
[2024-12-27 04:37] LABS: ASPARTATE AMINOTRANSFERASE 35.0 U/L (10-37); LDL DIRECT 130.0 mg/dL (0-99); TOTAL PROTEIN, SERUM 7.6 g/dL (6.0-8.3)
--- NOTE | 2024-12-27 06:30 | NUR ---
PT AWAKE AND ALERT, DENIES DISCOMFORT, NO CHEST PAIN, NO SOB OR LABORED RESPIRATIONS. HEPARIN DRIP TURNED OFF ORDERED. PT NPO FOR SURGERY. TELEMETRY MONITORING, CALL LIGHT WITHIN REACH.
--- NOTE | 2024-12-27 08:44 | PN ---
[facility] CARDIOLOGY PROGRESS NOTE Date Patient Seen: Dec 27, 2024 Time of Visit: 08:43 Problem List: ACSNSTEMI MVCAD Interval History: Pending CABG later today Physical Examination: GENERAL: [No acute distress.] NECK: [Normal carotid upstrokes without bruits.] LUNGS: [Clear breath sounds bilaterally.No wheezes, or rhonchi.] HEART: [Normal rate and rhythm. Normal S1 and S2 without murmurs, gallop or rub.] VASC: [Peripheral pulses +2 bilaterally.] ABD: soft, nontender EXT: [No cyanosis or edema.] SKIN: [No rashes or lesions noted.] NEURO: [Awake, alert, and oriented x3. No focal sensory or strength deficits noted.] Laboratory: [ ] Hematology Labs: Test 12/27/24 04:11 Range/Units White Blood Count 6.6 4.8-10.8 K/uL Red Blood Count 4.44 L 4.50-6.20 MIL/uL Hemoglobin 9.5 L 14.0-18.0 g/dL Hematocrit 32.5 L 42-54 % Mean Corpuscular Volume 73.2 L 79-99 fL Mean Corpuscular Hemoglobin 21.4 L 27.0-33.0 pg Mean Corpuscular Hemoglobin Concent 29.2 L 32.0-36.0 g/dL Red Cell Distribution Width 19.1 H 11.0-15.5 % Platelet Count 486 H 130-400 K/uL Mean Platelet Volume 9.4 7.5-10.5 fL Nucleated Red Blood Cells 0.0 0.0-0.19 % Chemistry Labs: Test 12/27/24 04:11 12/26/24 08:40 Range/Units Sodium Level 135 L 136-145 mmol/L Potassium Level 4.3 3.5-5.1 mmol/L Chloride Level 101 101-111 mmol/L Carbon Dioxide Level 24 21-32 mmol/L Blood Urea Nitrogen 14 7-18 mg/dL Creatinine 1.0 0.5-1.3 mg/dL Glomerular Filtration Rate Calc 88 >90 mL/min Random Glucose 129 H 70-105 mg/dL Total Calcium 9.2 8.5-10.1 mg/dL Total Bilirubin 0.2 # 0.2-1.0 mg/dL Aspartate Amino Transf (AST/SGOT) 35 10-37 U/L Alanine Aminotransferase (ALT/SGPT) 61 # 12-78 U/L Alkaline Phosphatase 70 50-136 U/L Total Protein 7.6 6.0-8.3 g/dL Albumin 3.2 L 3.5-5.0 g/dL Triglycerides Level 135 30-200 mg/dL Cholesterol Level 197 <200 mg/dL LDL Cholesterol 130 H 0-99 mg/dL HDL Cholesterol 39 29-71 mg/dL Magnesium Level 1.90 1.80-2.40 mg/dL Coagulation Labs: Test 12/27/24 04:11 Range/Units Prothrombin Time 10.9 9.6-11.6 SEC Prothromb Time International Ratio 1.03 0.85-1.15 Activated Partial Thromboplast Time 79.2 H 26.3-35.5 SEC Impression and Plan: ACS-NSTEMI MVCAD Hypertension ICMP LVE 45-50 Anemia Continue asa, statin, beta dante Pending CABG later today MACEY GALO DO Dec 27, 2024 08:44
--- NOTE | 2024-12-27 08:54 | EKG ---
[facility] Test Date: 2024-12-27 Test Time: 05:22:47 Pat Name: ZHEN CUMMINS Department: [facility] Room: 228 1 Gender: M Tobacco Sizer: mara : 1970 Requested By: KATHRIN PONCE Order Number: [id number] Reading MD: Neo Landis Measurements Intervals [place] Rate: 74 P: 66 UT: 120 QRS: 41 QRSD: 93 T: -27 QT: 366 QTc: 406 Interpretive Statements Sinus rhythm Inferior infarct, old, with posterior extension Compared to ECG 12/24/2024 03:28:13 Sinus arrhythmia no longer present Ventricular premature complex(es) no longer present Myocardial infarct finding still present Electronically Signed On 12-27-2024 19:46:07 CDT by Neo Landis Please click the below link to view image of tracing.
[2024-12-27] MEDS ORDERED: PAPAVERINE HCL 30 MG/ML 2ML VIAL ONE (12:16)
[2024-12-27] MEDS ORDERED: HEParin-NS 1,000 UNIT/500 ML 500 ML IV ONE (12:16)
[2024-12-27] MEDS ORDERED: NITROGLYCERIN 50MG/D5W 250ML 1 BOT ONE (12:52)
[2024-12-27] MEDS ORDERED: LIDOCAINE 2G/250ML 250 ML IV ONE (12:52)
--- NOTE | 2024-12-27 13:21 | PN ---
[facility] PROGRESS NOTE Date of Service: Dec 27, 2024 Time of Service: 13:20 SUBJECTIVE: This is a 54-year-old male who presented to [facility] with a non-STEMI. He underwent left heart catheterization which showed severe multi-vessel coronary artery disease with mid to apical inferior hypokinesis, LVEF 45-50%. He underwent echocardiogram 12/19/2024 which showed an ejection fraction of 55- 60%, mild LVH, normal-sized left atrium, mild mitral valve regurgitation and mild tricuspid valve regurgitation. He was transferred to [facility] for CABG. 12/25 patient remains admitted to the PCU, case discussed with the RN, no acute events overnight, he denied chest pain, shortness shortness for breath, no nausea, no vomiting, no abdominal discomfort. Cardiology input noted and appreciated, patient to continue aspirin 81 mg p.o. daily and atorvastatin 40 mg p.o. daily. Continue metoprolol tartrate 25 mg p.o. b.i.d.. Pending evaluation by CT surgery for consideration for CABG. Discussed with the patient. 12/26 patient remains admitted to the PCU, case discussed with the RN, no acute events overnight, the time of my visit the patient is comfortably in bed, alert oriented x3, eating breakfast, tolerating well, denies nausea, no vomiting, no abdominal discomfort, he denies chest pain, no shortness a breath. Remains on aspirin 81 mg p.o. daily, atorvastatin and metoprolol 25 mg p.o. b.i.d.. Pending evaluation by CT surgery for consideration of CABG. 12/27 patient is seen and examined at bedside, case discussed with the RN, no acute events overnight, currently the patient NPO, scheduled for CABG today by Cardiothoracic surgeon. We will continue to follow. REVIEW OF SYSTEMS CONSTITUTIONAL: Denies fevers, chills, or night sweats. No unintentional weight loss reported. NEUROLOGICAL: Denies headache, amaurosis fugax, motor weakness, sensory deficit, vertigo/spinning sensation, gait abnormalities, or tremors. ENT: No hearing loss, otalgia, otorrhea, rhinitis, rhinorrhea, hoarseness, or sore throat. CARDIOVASCULAR: Denies any exertional angina, dyspnea on exertion, orthopnea, paroxysmal nocturnal dyspnea, palpitations, life-threatening arrhythmias, claudication. PULMONARY: Denies any shortness of breath, cough, phlegm/sputum, hemoptysis, pl euritic chest pain. SLEEP: Denies morning headaches, daytime somnolence or napping. Denies difficulty falling asleep, staying asleep, waking from sleep. Denies knowledge of snoring. GASTROINTESTINAL: Denies any type of dysphagia to either liquids or solids. Denies nausea, vomiting, pyrosis, early satiety, abdominal pain, diarrhea, constipation, or changes in stool consistency or caliber. Denies coffee-ground emesis, hematemesis, hematochezia, or melanotic stools. GENITOURINARY: Denies frequency, urgency, nocturia, hematuria or incontinence (Storage/Irritative symptoms.) Low urinary stream, straining to void, urinary intermittency or hesitancy, splitting of the voiding stream, terminal dribbling. ENDOCRINOLOGIC: Denies polyuria, polydipsia, polyphagia or heat/cold intolera nces. HEMATOLOGIC: Denies thrombophilia/previous clots, or coagulopathy/bleeding disorders. ONCOLOGIC: Denies personal history of malignancy. DERMATOLOGIC: Denies rashes or pruritus. PSYCHIATRIC: Denies any suicidal or homicidal ideation. Denies hallucinations. PHYSICAL EXAM GENERAL APPEARANCE: The patient is awake, alert, and oriented, in no acute cardiopulmonary distress. NEUROLOGICAL: Cranial nerves II-XII grossly intact. Motor is 5/5 in bilateral upper and lower extremities proximal to distal. No sensory deficits. HEENT: Face is symmetric. Pupils are equal and reactive. Extraocular movements are intact. NECK: Supple. No JVD. No thyromegaly. No submental, submandibular, pre- /postauricular, occipital or supraclavicular lymphadenopathy. CHEST: Normal chest expansion. No Telemetry. LUNGS: Absence of any rales, rhonchi or any wheezing. CARDIOVASCULAR: Regular. S1 and S2 normal. No appreciable rubs, murmurs or gallops. ABDOMEN: Soft, nontender, and nondistended. There is no rebound, voluntary guarding, or rigidity. : Deferred. No Andres. EXTREMITIES: Non-edematous and not cyanotic. No clubbing. Good capillary refill. SKIN: No skin breakdown. Vital Signs (last 8hr) Date Time Temp Pulse Resp B/P (MAP) Pulse Ox O2 Delivery O2 Flow Rate FiO2 12/27/24 12:05 97.9 81 18 151/91 99 Room Air 12/27/24 08:35 98 Room Air* 0 21 12/27/24 07:55 98.2 77 18 158/93 99 Room Air LABS: Laboratory: Test 12/27/24 04:11 12/26/24 16:47 12/26/24 08:40 Range/Units White Blood Count 6.6 4.8-10.8 K/uL Red Blood Count 4.44 L 4.50-6.20 MIL/uL Hemoglobin 9.5 L 14.0-18.0 g/dL Hematocrit 32.5 L 42-54 % Mean Corpuscular Volume 73.2 L 79-99 fL Mean Corpuscular Hemoglobin 21.4 L 27.0-33.0 pg Mean Corpuscular Hemoglobin Concent 29.2 L 32.0-36.0 g/dL Red Cell Distribution Width 19.1 H 11.0-15.5 % Platelet Count 486 H 130-400 K/uL Mean Platelet Volume 9.4 7.5-10.5 fL Nucleated Red Blood Cells 0.0 0.0-0.19 % Prothrombin Time 10.9 9.6-11.6 SEC Prothromb Time International Ratio 1.03 0.85-1.15 Activated Partial Thromboplast Time 79.2 H 26.3-35.5 SEC Sodium Level 135 L 136-145 mmol/L Potassium Level 4.3 3.5-5.1 mmol/L Chloride Level 101 101-111 mmol/L Carbon Dioxide Level 24 21-32 mmol/L Blood Urea Nitrogen 14 7-18 mg/dL Creatinine 1.0 0.5-1.3 mg/dL Glomerular Filtration Rate Calc 88 >90 mL/min Random Glucose 129 H 70-105 mg/dL Total Calcium 9.2 8.5-10.1 mg/dL Total Bilirubin 0.2 # 0.2-1.0 mg/dL Aspartate Amino Transf (AST/SGOT) 35 10-37 U/L Alanine Aminotransferase (ALT/SGPT) 61 # 12-78 U/L Alkaline Phosphatase 70 50-136 U/L Total Protein 7.6 6.0-8.3 g/dL Albumin 3.2 L 3.5-5.0 g/dL Triglycerides Level 135 30-200 mg/dL Cholesterol Level 197 <200 mg/dL LDL Cholesterol 130 H 0-99 mg/dL HDL Cholesterol 39 29-71 mg/dL Blood Gas Specimen Type Arterial Arterial Blood pH 7.451 H 7.350-7.450 Arterial Blood Partial Pressure CO2 32 L 35-48 mmHg Arterial Blood Partial Pressure O2 85.2 83.0-108.0 mmHg Arterial Blood HCO3 22.0 21.0-28.0 mmol/L Arterial Blood Oxygen Saturation 96.9 94.0-98.0 % Arterial Blood Base Excess -1.0 -2.0-3.0 mmol/L Blood Gas Temperature 37.0 35.5-37.0 CELSIUS Blood Gas Vent Mode RA ROOM AIR FiO2 21.0 % Blood Gas Specimen Comment [facility] JEREMIAH Magnesium Level 1.90 1.80-2.40 mg/dL Current Medications Medications (Trade) Dose Ordered Sig/Mila Route PRN Reason Start Time Stop Time Status Last Admin Dose Admin Acetaminophen (TYLenol 325MG TAB) 650 mg Q6H PRN PO MILD PAIN (1-3) 12/24/24 01:30 01/23/25 01:29 12/27/24 08:43 650 MG Acetaminophen (TYLenol 325MG TAB) 650 mg Q6H PRN PO TEMPERATURE GREATER THAN 101.5 12/24/24 03:00 01/23/25 02:59 Aminocaproic Acid 65891 mg/Sodium Chloride 480 ml @ 0 mls/hr AD PRN IV BLEEDING CONTROL 12/27/24 11:00 01/26/25 10:59 Aspirin (Aspirin 81mg Ec Tab) 81 mg DAILY PO 12/24/24 09:00 01/23/25 08:59 12/26/24 10:19 81 MG Atorvastatin Calcium (LIPItor 40MG) 40 mg HS PO 12/24/24 21:00 01/23/25 20:59 12/26/24 21:25 40 MG Cefazolin Sodium (ANCEF 1 gm vial) 2 gm ONCALL IVP 12/26/24 16:30 12/26/24 16:28 DC Cefazolin Sodium (Ancef) 2 gm ONCALL PRN IVP SURGERY 12/26/24 16:30 12/28/24 16:29 Epinephrine HCl 10 mg/Sodium Chloride 250 ml @ 0 mls/hr AD PRN IV TITRATE 12/27/24 11:00 01/26/25 10:59 Famotidine (Pepcid 20mg Tab) 20 mg DAILY PO 12/24/24 09:00 01/23/25 08:59 12/26/24 10:19 20 MG Heparin Sodium (Porcine) (HEParin 5,000 UNIT VIAL) *calculation based on ACTUAL B... AD PRN IV HEPARIN PROTOCOL 12/24/24 02:30 01/23/25 02:29 12/24/24 17:32 5,000 UNIT Heparin Sodium/ Dextrose 250 ml @ 0 mls/hr Q6H IV 12/24/24 02:30 01/23/25 02:29 12/26/24 15:30 12.2 MLS/HR Hydralazine HCl (APRESOLine 20MG INJ) 10 mg Q6H PRN IV For:SBP above 160;DBP above 90 12/24/24 03:00 01/23/25 02:59 Lactulose (Constulose 20gm/ 30ml Udcup) 20 gm BID PRN PO CONSTIPATION 12/24/24 03:00 01/23/25 02:59 12/26/24 21:30 20 GM Magnesium Sulfate 50 ml @ 0 mls/hr PROTOCOL PRN IV MAGNESIUM PROTOCOL 12/26/24 15:00 01/25/25 14:59 Metoprolol Tartrate (loprESSOR) 25 mg BID PO 12/25/24 21:00 01/24/25 20:59 12/27/24 08:37 25 MG Morphine Sulfate (morPHINE 2MG SYG) 2 mg Q4H PRN IVP SEVERE PAIN (7-10) 12/24/24 03:00 12/31/24 02:59 12/26/24 02:43 2 MG Nitroglycerin (Nitroglycerin 1gm Oint) 0.5 inch Q8H5 TD 12/24/24 01:30 01/23/25 01:29 12/27/24 12:57 0.5 INCH Norepinephrine Bitartrate 250 ml @ 0 mls/hr AD PRN IV TITRATE 12/27/24 11:00 01/26/25 10:59 Ondansetron HCl (zoFRAN 4MG INJ) 4 mg Q6H PRN IV NAUSEA/VOMITING 12/24/24 03:00 01/23/25 02:59 Potassium Chloride 100 ml @ 100 mls/hr AD PRN IV POTASSIUM PROTOCOL 12/26/24 15:00 01/25/25 14:59 Potassium Chloride (K-Dur/Klor-Con 20meq) 20 meq AD PRN PO POTASSIUM PROTOCOL 12/26/24 15:00 01/25/25 14:59 12/26/24 18:27 20 MEQ Potassium Chloride (KCl 10% Elixir 20meq/15ml) 20 meq AD PRN PO POTASSIUM PROTOCOL 12/26/24 15:00 01/25/25 14:59 DIAGNOSTICS / RADIOLOGY: [ ] ASSESSMENT: 1. Non-STEMI. 2. Multi-vessel coronary artery disease. 3. Mild ischemic cardiomyopathy with LVEF 45-50 by left heart catheterization. 4. Hypertension. 5. Anemia. PLAN: NEURO: Minimize central acting medications as possible. Fall Precautions. Well lighted room through the day and minimize interruptions through the night to prevent acute delirium. PULMONARY: Supplemental 02 as needed BiPAP as necessary, for respiratory distress Titrate Fio2 to keep Spo2 > or = 90% DuoNebs and CPT as needed IS hourly while awake for pulmonary hygiene prn Out of bed to chair as tolerated Maintain aspiration precautions at all times CARDIOVASCULAR: Follow hemodynamics. Vital signs per facility protocol GI & NUTRITION: Continue nutritional support Aspirations precautions Prokinetic agents and laxatives as needed KIDNEYS & ELECTROLYTES: Strict monitoring of intake and output Daily weights Avoid nephrotoxic agents Monitor electrolytes and replace as needed Goal urine output of 30mL/hr or 0.5mL/kg/hr Medications to be dosed according to renal function. Avoid contrast if possible ENDOCRINE: Maintain blood glucose between 100-180 at all times. Insulin sliding scale for blood glucose management Hypoglycemia and hyperglycemia protocol in place INFECTIOUS DISEASE: Trend temperature, WBC and procalcitonin level Follow cultures, deescalate antibiotics as soon as possible. Panculture if new onset fever HEMATOLOGY & COAGULATION: Monitor H&H. Keep Hgb > 7 Transfuse 1 unit of PRBC for Hgb < 7 Transfuse 1 pack of platelets of platelets < 20, 000 Watch for any signs and symptoms of bleeding SKIN: Pressure ulcer prevention per facility protocol Specialty mattress as needed ORTHO/REHAB Continue PT/OT PRN: MEDICATIONS Tylenol 650 mg po every 4 hrs for fever zofran 4 mg IV every 6 hrs for n/v Hydralazine 5 mg IV every 4 hrs systolic pressure > 160 bowel regiment: lactulose 20 gm PO BID PRN constipation Supportive measures: Continue GI and DVT prophylaxis Disposition: Pending evaluation by CT surgery for consideration of CABG. All questions answered time spent: > 35 min BURKE SULLIVAN MD Dec 27, 2024 13:21
--- NOTE | 2024-12-27 19:40 | HMCSR ---
APPROVED REPORT EXAM: Two-dimensional and M-mode echocardiogram with Doppler and color Doppler. INDICATION ICD: Pre-Op CABG 2D Dimensions RVDd3.0 cmLVEF(%)53.8 (>50%)LVED Vol(simp.)90.5 mL IVSd0.8 (0.7-1.1cm)FS(%)28 %LVES Vol(simp.)43.2 mL LVDd4.8 (3.8-5.6cm)LA (2D)3.3 (1.6-4.0cm)LVEF(%, simp.)52 % PWd1.1 (0.7-1.1cm)Ao Root(2D)2.9 (2.0-3.7cm)LA ESV INDEX (BP)32.15 mL/m2 LVDs3.5 (2.5-4.0cm)LVOT diam2.1 (1.8-2.4cm) IVC diam1.1 cm Deformation Strain Apical 4-13.3 % Apical 2-12.6 % Apical 3-10.5 % Global Strain-12.1 % M-Mode Dimensions EPSS1.5 cm LA (MM)3.3 (1.6-4.0cm) Ao Root(MM)3.0 (2.0-3.7cm) Aortic Valve AoV Vmax1.4 m/S[place] Peak GR7.3 mmHgLVOT Vmax0.8 m/s AoV VTI0.3 mAo Mean GR3.9 mmHgLVOT VTI0.16 m MARGARITA (VMAX)1.93 cm2AVA (VTI) 2.1 cm2 Mitral Valve MV E Vmax74.7 cm/sDECEL Mtxg026 ms MV A Vmax91.5 cm/sP 1/2 T61 ms E/A ratio0.8MVA (PHT)3.6 cm2 TDI E/E' Tolqlu82.2E/E' Lateral9.3 Medial E' Peak V4.90 cm/sLateral E' Peak V8.01 cm/s Pulmonary Valve PV Vmax1.0 m/sPV VTI0.20 mPV Mean GR2.3 mmHg PV Peak GR3.8 mmHg Left Ventricle The left ventricle is normal size. Inferobasal hypokinesis. GLS is -12% and moderately to severely re duced with apical sparing. Moderate concentric LVH. LVEF is 50-55%. Stage I diastolic dysfunction. Right Ventricle The right ventricle is normal size. The right ventricular systolic function is normal. Atria The left atrium size is normal. The right atrium size is normal. Aortic Valve The aortic valve is normal in structure. No aortic regurgitation is present. There is no aortic valvu lar stenosis. Mitral Valve The mitral valve is normal in structure. There is no mitral valve regurgitation noted. There is no mi tral valve stenosis. Tricuspid Valve The tricuspid valve is normal in structure. There is no tricuspid valve regurgitation noted. Pulmonic Valve The pulmonary valve is normal in structure. There is no pulmonic valvular regurgitation. Great Vessels The aortic root is normal in size. The IVC is normal in size and collapses >50% with inspiration. Pericardium There is no pericardial effusion. Conclusion The left ventricle is normal size. Moderate concentric LVH. Inferobasal hypokinesis. GLS is -12% and moderately to severely reduced with apical sparing. LVEF is 50-55%. Stage I diastolic dysfunction. The aortic valve is normal in structure. There is no mitral valve regurgitation noted. The IVC is normal in size and collapses >50% with inspiration. There is no pericardial effusion.
--- NOTE | 2024-12-27 20:44 | PN ---
CARDIOLOGY PROGRESS NOTE HISTORY OF PRESENT ILLNESS: A 54-year-old gentleman status post admission to the hospital with previous coronary artery disease. I had the opportunity to review the films. I have discussed the case with the ____ manager part's permission. We both agreed to surgery is indicating and we have recommended. The patient understands the indications for surgery as well as the potential complications of the operation including, but not limited to postoperative bleeding, infection, stroke, and . He is also aware of the associated morbidity and mortality of procedures related to external comorbidities and is expressed in the minor morbidity and mortality and the current database for society of thoracic surgeons and wishes to proceed with surgery. PLAN: Plan for surgery tomorrow. TID: [id number] RECEIPT: [id number]
--- NOTE | 2024-12-27 23:22 | HMCIMG ---
EXAM: CR Chest, single view CLINICAL HISTORY: Preop CABG COMPARISON: Prior chest radiograph dated 24 December 2024. FINDINGS: The lungs show no infiltrate or other acute findings. No pleural effusion or pneumothorax. The cardiomediastinal silhouette is within normal limits. No acute osseous abnormality. IMPRESSION: No acute cardiopulmonary pathology is evident. Compared to the prior study, there is no significant interval change. /Sasser
[2024-12-28] VITALS (35 sets, daily range): BP systolic 92–194; BP diastolic 53–125; PULSE 61–137; RESP 9–20; TEMP 97–98.5; O2SAT 99–100
[2024-12-28] MEDS ORDERED: LIDOCAINE 2G/250ML 250 ML IV ONE (10:34)
--- NOTE | 2024-12-28 10:41 | PN ---
[facility] PROGRESS NOTE Date of Service: Dec 28, 2024 Time of Service: 10:40 SUBJECTIVE: This is a 54-year-old male who presented to [facility] with a non-STEMI. He underwent left heart catheterization which showed severe multi-vessel coronary artery disease with mid to apical inferior hypokinesis, LVEF 45-50%. He underwent echocardiogram 12/19/2024 which showed an ejection fraction of 55- 60%, mild LVH, normal-sized left atrium, mild mitral valve regurgitation and mild tricuspid valve regurgitation. He was transferred to [facility] for CABG. 12/25 patient remains admitted to the PCU, case discussed with the RN, no acute events overnight, he denied chest pain, shortness shortness for breath, no nausea, no vomiting, no abdominal discomfort. Cardiology input noted and appreciated, patient to continue aspirin 81 mg p.o. daily and atorvastatin 40 mg p.o. daily. Continue metoprolol tartrate 25 mg p.o. b.i.d.. Pending evaluation by CT surgery for consideration for CABG. Discussed with the patient. 12/26 patient remains admitted to the PCU, case discussed with the RN, no acute events overnight, the time of my visit the patient is comfortably in bed, alert oriented x3, eating breakfast, tolerating well, denies nausea, no vomiting, no abdominal discomfort, he denies chest pain, no shortness a breath. Remains on aspirin 81 mg p.o. daily, atorvastatin and metoprolol 25 mg p.o. b.i.d.. Pending evaluation by CT surgery for consideration of CABG. 12/27 patient is seen and examined at bedside, case discussed with the RN, no acute events overnight, currently the patient NPO, scheduled for CABG today by Cardiothoracic surgeon. We will continue to follow. 12/28 patient is seen and examined at bedside, case discussed with the RN, no acute events overnight, currently the patient NPO, scheduled for CABG today by Cardiothoracic surgeon. We will continue to follow. REVIEW OF SYSTEMS CONSTITUTIONAL: Denies fevers, chills, or night sweats. No unintentional weight loss reported. NEUROLOGICAL: Denies headache, amaurosis fugax, motor weakness, sensory deficit, vertigo/spinning sensation, gait abnormalities, or tremors. ENT: No hearing loss, otalgia, otorrhea, rhinitis, rhinorrhea, hoarseness, or sore throat. CARDIOVASCULAR: Denies any exertional angina, dyspnea on exertion, orthopnea, paroxysmal nocturnal dyspnea, palpitations, life-threatening arrhythmias, claudication. PULMONARY: Denies any shortness of breath, cough, phlegm/sputum, hemoptysis, pleuritic chest pain. SLEEP: Denies morning headaches, daytime somnolence or napping. Denies difficulty falling asleep, staying asleep, waking from sleep. Denies knowledge of snoring. GASTROINTESTINAL: Denies any type of dysphagia to either liquids or solids. Denies nausea, vomiting, pyrosis, early satiety, abdominal pain, diarrhea, constipation, or changes in stool consistency or caliber. Denies coffee-ground emesis, hematemesis, hematochezia, or melanotic stools. GENITOURINARY: Denies frequency, urgency, nocturia, hematuria or incontinence (Storage/Irritative symptoms.) Low urinary stream, straining to void, urinary intermittency or hesitancy, splitting of the voiding stream, terminal dribbling. ENDOCRINOLOGIC: Denies polyuria, polydipsia, polyphagia or heat/cold intolerances. HEMATOLOGIC: Denies thrombophilia/previous clots, or coagulopathy/bleeding disorders. ONCOLOGIC: Denies personal history of malignancy. DERMATOLOGIC: Denies rashes or pruritus. PSYCHIATRIC: Denies any suicidal or homicidal ideation. Denies hallucinations. PHYSICAL EXAM GENERAL APPEARANCE: The patient is awake, alert, and oriented, in no acute cardiopulmonary distress. NEUROLOGICAL: Cranial nerves II-XII grossly intact. Motor is 5/5 in bilateral upper and lower extremities proximal to distal. No sensory deficits. HEENT: Face is symmetric. Pupils are equal and reactive. Extraocular movements are intact. NECK: Supple. No JVD. No thyromegaly. No submental, submandibular, pre- /postauricular, occipital or supraclavicular lymphadenopathy. CHEST: Normal chest expansion. No Telemetry. LUNGS: Absence of any rales, rhonchi or any wheezing. CARDIOVASCULAR: Regular. S1 and S2 normal. No appreciable rubs, murmurs or gallops. ABDOMEN: Soft, nontender, and nondistended. There is no rebound, voluntary guarding, or rigidity. : Deferred. No Andres. EXTREMITIES: Non-edematous and not cyanotic. No clubbing. Good capillary refill. SKIN: No skin breakdown. Vital Signs (last 8hr) Date Time Temp Pulse Resp B/P (MAP) Pulse Ox O2 Delivery O2 Flow Rate FiO2 12/28/24 07:00 98.4 78 18 135/82 100 Room Air 12/28/24 03:00 97.9 61 18 125/86 100 Room Air LABS: Laboratory: Test 12/27/24 23:21 12/27/24 04:11 12/26/24 16:47 Range/Units Activated Partial Thromboplast Time 45.8 #H 26.3-35.5 SEC White Blood Count 6.6 4.8-10.8 K/uL Red Blood Count 4.44 L 4.50-6.20 MIL/uL Hemoglobin 9.5 L 14.0-18.0 g/dL Hematocrit 32.5 L 42-54 % Mean Corpuscular Volume 73.2 L 79-99 fL Mean Corpuscular Hemoglobin 21.4 L 27.0-33.0 pg Mean Corpuscular Hemoglobin Concent 29.2 L 32.0-36.0 g/dL Red Cell Distribution Width 19.1 H 11.0-15.5 % Platelet Count 486 H 130-400 K/uL Mean Platelet Volume 9.4 7.5-10.5 fL Nucleated Red Blood Cells 0.0 0.0-0.19 % Prothrombin Time 10.9 9.6-11.6 SEC Prothromb Time International Ratio 1.03 0.85-1.15 Sodium Level 135 L 136-145 mmol/L Potassium Level 4.3 3.5-5.1 mmol/L Chloride Level 101 101-111 mmol/L Carbon Dioxide Level 24 21-32 mmol/L Blood Urea Nitrogen 14 7-18 mg/dL Creatinine 1.0 0.5-1.3 mg/dL Glomerular Filtration Rate Calc 88 >90 mL/min Random Glucose 129 H 70-105 mg/dL Total Calcium 9.2 8.5-10.1 mg/dL Total Bilirubin 0.2 # 0.2-1.0 mg/dL Aspartate Amino Transf (AST/SGOT) 35 10-37 U/L Alanine Aminotransferase (ALT/SGPT) 61 # 12-78 U/L Alkaline Phosphatase 70 50-136 U/L Total Protein 7.6 6.0-8.3 g/dL Albumin 3.2 L 3.5-5.0 g/dL Triglycerides Level 135 30-200 mg/dL Cholesterol Level 197 <200 mg/dL LDL Cholesterol 130 H 0-99 mg/dL HDL Cholesterol 39 29-71 mg/dL Blood Gas Specimen Type Arterial Arterial Blood pH 7.451 H 7.350-7.450 Arterial Blood Partial Pressure CO2 32 L 35-48 mmHg Arterial Blood Partial Pressure O2 85.2 83.0-108.0 mmHg Arterial Blood HCO3 22.0 21.0-28.0 mmol/L Arterial Blood Oxygen Saturation 96.9 94.0-98.0 % Arterial Blood Base Excess -1.0 -2.0-3.0 mmol/L Blood Gas Temperature 37.0 35.5-37.0 CELSIUS Blood Gas Vent Mode RA ROOM AIR FiO2 21.0 % Blood Gas Specimen Comment LB JEREMIAH Current Medications Medications (Trade) Dose Ordered Sig/Mila Route PRN Reason Start Time Stop Time Status Last Admin Dose Admin Acetaminophen (TYLenol 325MG TAB) 650 mg Q6H PRN PO MILD PAIN (1-3) 12/24/24 01:30 01/23/25 01:29 12/27/24 23:45 650 MG Acetaminophen (TYLenol 325MG TAB) 650 mg Q6H PRN PO TEMPERATURE GREATER THAN 101.5 12/24/24 03:00 01/23/25 02:59 Aminocaproic Acid 86088 mg/Sodium Chloride 480 ml @ 0 mls/hr AD PRN IV BLEEDING CONTROL 12/27/24 11:00 01/26/25 10:59 Aspirin (Aspirin 81mg Ec Tab) 81 mg DAILY PO 12/24/24 09:00 01/23/25 08:59 12/26/24 10:19 81 MG Atorvastatin Calcium (LIPItor 40MG) 40 mg HS PO 12/24/24 21:00 01/23/25 20:59 12/27/24 20:37 40 MG Cefazolin Sodium (ANCEF 1 gm vial) 2 gm ONCALL IVP 12/26/24 16:30 12/26/24 16:28 DC Cefazolin Sodium (Ancef) 2 gm ONCALL PRN IVP SURGERY 12/26/24 16:30 12/28/24 16:29 Epinephrine HCl 10 mg/Sodium Chloride 250 ml @ 0 mls/hr AD PRN IV TITRATE 12/27/24 11:00 01/26/25 10:59 Famotidine (Pepcid 20mg Tab) 20 mg DAILY PO 12/24/24 09:00 01/23/25 08:59 12/26/24 10:19 20 MG Heparin Sodium (Porcine) (HEParin 5,000 UNIT VIAL) *calculation based on ACTUAL B... AD PRN IV HEPARIN PROTOCOL 12/24/24 02:30 01/23/25 02:29 12/24/24 17:32 5,000 UNIT Heparin Sodium/ Dextrose 250 ml @ 0 mls/hr Q6H IV 12/24/24 02:30 01/23/25 02:29 12/27/24 17:04 11.3 MLS/HR Hydralazine HCl (APRESOLine 20MG INJ) 10 mg Q6H PRN IV For:SBP above 160;DBP above 90 12/24/24 03:00 01/23/25 02:59 Lactulose (Constulose 20gm/ 30ml Udcup) 20 gm BID PRN PO CONSTIPATION 12/24/24 03:00 01/23/25 02:59 12/26/24 21:30 20 GM Magnesium Sulfate 50 ml @ 0 mls/hr PROTOCOL PRN IV MAGNESIUM PROTOCOL 12/26/24 15:00 01/25/25 14:59 Metoprolol Tartrate (loprESSOR) 25 mg BID PO 12/25/24 21:00 01/24/25 20:59 12/28/24 09:28 25 MG Morphine Sulfate (morPHINE 2MG SYG) 2 mg Q4H PRN IVP SEVERE PAIN (7-10) 12/24/24 03:00 12/31/24 02:59 12/26/24 02:43 2 MG Nitroglycerin (Nitroglycerin 1gm Oint) 0.5 inch Q8H5 TD 12/24/24 01:30 01/23/25 01:29 12/27/24 12:57 0.5 INCH Norepinephrine Bitartrate 250 ml @ 0 mls/hr AD PRN IV TITRATE 12/27/24 11:00 01/26/25 10:59 Ondansetron HCl (zoFRAN 4MG INJ) 4 mg Q6H PRN IV NAUSEA/VOMITING 12/24/24 03:00 01/23/25 02:59 Potassium Chloride 100 ml @ 100 mls/hr AD PRN IV POTASSIUM PROTOCOL 12/26/24 15:00 01/25/25 14:59 Potassium Chloride (K-Dur/Klor-Con 20meq) 20 meq AD PRN PO POTASSIUM PROTOCOL 12/26/24 15:00 01/25/25 14:59 12/26/24 18:27 20 MEQ Potassium Chloride (KCl 10% Elixir 20meq/15ml) 20 meq AD PRN PO POTASSIUM PROTOCOL 12/26/24 15:00 01/25/25 14:59 DIAGNOSTICS / RADIOLOGY: [ ] ASSESSMENT: 1. Non-STEMI. 2. Multi-vessel coronary artery disease. 3. Mild ischemic cardiomyopathy with LVEF 45-50 by left heart catheterization. 4. Hypertension. 5. Anemia. PLAN: NEURO: Minimize central acting medications as possible. Fall Precautions. Well lighted room through the day and minimize interruptions through the night to prevent acute delirium. PULMONARY: Supplemental 02 as needed BiPAP as necessary, for respiratory distress Titrate Fio2 to keep Spo2 > or = 90% DuoNebs and CPT as needed IS hourly while awake for pulmonary hygiene prn Out of bed to chair as tolerated Maintain aspiration precautions at all times CARDIOVASCULAR: Follow hemodynamics. Vital signs per facility protocol GI & NUTRITION: Continue nutritional support Aspirations precautions Prokinetic agents and laxatives as needed KIDNEYS & ELECTROLYTES: Strict monitoring of intake and output Daily weights Avoid nephrotoxic agents Monitor electrolytes and replace as needed Goal urine output of 30mL/hr or 0.5mL/kg/hr Medications to be dosed according to renal function. Avoid contrast if possible ENDOCRINE: Maintain blood glucose between 100-180 at all times. Insulin sliding scale for blood glucose management Hypoglycemia and hyperglycemia protocol in place INFECTIOUS DISEASE: Trend temperature, WBC and procalcitonin level Follow cultures, deescalate antibiotics as soon as possible. Panculture if new onset fever HEMATOLOGY & COAGULATION: Monitor H&H. Keep Hgb > 7 Transfuse 1 unit of PRBC for Hgb < 7 Transfuse 1 pack of platelets of platelets < 20, 000 Watch for any signs and symptoms of bleeding SKIN: Pressure ulcer prevention per facility protocol Specialty mattress as needed ORTHO/REHAB Continue PT/OT PRN: MEDICATIONS Tylenol 650 mg po every 4 hrs for fever zofran 4 mg IV every 6 hrs for n/v Hydralazine 5 mg IV every 4 hrs systolic pressure > 160 bowel regiment: lactulose 20 gm PO BID PRN constipation Supportive measures: Continue GI and DVT prophylaxis Disposition: Pending evaluation by CT surgery for consideration of CABG. All questions answered time spent: > 35 min BURKE SULLIVAN MD Dec 28, 2024 10:41
--- NOTE | 2024-12-28 10:47 | NUR ---
PATIENT OFF THE FLOOR FOR CABG
--- NOTE | 2024-12-28 11:30 | NUR ---
CABG TODAY. Addendum: 12/28/24 at 1243 by BLANE SAHA PT Amended: Links added.
[2024-12-28] MEDS ORDERED: SODIUM BICARB 50MEQ 50ML VIAL 200 ML ONE (12:32)
[2024-12-28] MEDS ORDERED: PROTamine SULFate 10 MG/ML 25ML VIAL IV ONE (12:32)
[2024-12-28] MEDS ORDERED: LIDOCAINE PF 100MG/5ML (2%) SYRINGE 5ML ONE ×2 (12:32→14:53)
[2024-12-28] MEDS ORDERED: MIDAZOLAM HCL 1 MG/ML 2ML VIAL ONE (12:33)
[2024-12-28] MEDS ORDERED: NOREPINEPHRINE BITARTRATE 1 MG/1 ML ML IV ONE (12:33)
[2024-12-28] MEDS ORDERED: ETOMIDATE 20MG VIAL ONE (12:34)
[2024-12-28] MEDS ORDERED: AMIOdarone 150MG/100ML BAG 100 ML ONE (12:57)
[2024-12-28] MEDS ORDERED: SODIUM BICARB 50MEQ 50ML VIAL 250 ML ONE (13:13)
[2024-12-28 13:20] LABS: ABG BASE EXCESS -5.3 mmol/L (-2.0-3.0); ABG HCO3 19.0 mmol/L (21.0-28.0); ABG OXYGEN SATURATION 99.7 % (94.0-98.0); ABG PCO2 33 mmHg (35-48); ABG PH 7.385 (7.350-7.450); CARBON MONOXIDE 0.3 % (0.5-1.5); DEVICE COMMENT 1; PO2, ARTERIAL BG 483.8 mmHg (83.0-108.0); TEMPERATURE, CELSIUS BG 37.0 CELSIUS (35.5-37.0)
[2024-12-28] MEDS ORDERED: 0.9% NACL 500ML IV.SOLN 500 ML IV SCH (14:00)
[2024-12-28] MEDS ORDERED: NITROGLYCERIN 50MG/D5W 250ML 250 BOT IV SCH (14:00)
[2024-12-28] MEDS ORDERED: DEXTROSE 50%-WATER 50 ML DISP.SYRIN IV PRN (14:00)
[2024-12-28] MEDS ORDERED: GLUCAGON 1MG KIT 1 MG ML IM PRN (14:00)
[2024-12-28] MEDS ORDERED: NOREPINEPHRINE BITARTRATE 8 MG in DEXTROSE 5%-WATER 250 ML IV PRN (14:00)
[2024-12-28] MEDS ORDERED: 0.9%NACL 10ML VIAL IVP PRN (14:00)
[2024-12-28] MEDS ORDERED: COMPOUND IV MISC 1 EACH IVSOLN MISC PRN (14:30)
[2024-12-28] MEDS ORDERED: COMPOUND IV REFRIGERATED 1 EACH IVSOLN MISC PRN (14:30)
[2024-12-28] MEDS ORDERED: ALBUMIN (HUMAN) 5% 0 ML IV ONE (15:05)
[2024-12-28] MEDS ORDERED: SODIUM BICARB 50 MEQ ONE (16:17)
[2024-12-28 16:59] LABS: ABG BASE EXCESS -0.6 mmol/L (-2.0-3.0); ABG HCO3 23.3 mmol/L (21.0-28.0); ABG OXYGEN SATURATION 94.4 % (94.0-98.0); ABG PCO2 35 mmHg (35-48); ABG PH 7.437 (7.350-7.450); CARBON MONOXIDE 0.3 % (0.5-1.5); DEVICE COMMENT ALINE SYLVIA; PO2, ARTERIAL BG 74.9 mmHg (83.0-108.0); TEMPERATURE, CELSIUS BG 37.0 CELSIUS (35.5-37.0); VENT MODE, BG SIMV PS 10 (ROOM AIR)
[2024-12-28] MEDS: MAGNESIUM 2GM PREMIX 50ML 50 ML IV PRN (17:05)
[2024-12-28] MEDS: 0.9%NACL 1000ML 1,000 ML IV SCH (17:06)
[2024-12-28] MEDS: SODIUM BICARB 50MEQ 50ML VIAL IV PRN (17:07)
[2024-12-28 17:08] LABS: NUCLEATED RED BLOOD CELLS 0.0 % (0.0-0.19); PLATELET COUNT (AUTO) 356.0 K/uL (130-400); RED BLOOD CELL COUNT(AUTO) 3.74 MIL/uL (4.50-6.20); RED CELL DISTRIBUTION WIDTH 20.8 % (11.0-15.5); WHITE BLOOD COUNT (AUTO) 12.7 K/uL (4.8-10.8)
[2024-12-28] MEDS: INSULIN REGULAR, HUMAN 3ML 100 UNIT in 0.9%NACL 100ML 99 ML IV SCH (17:09)
--- NOTE | 2024-12-28 17:15 | NUR ---
SPEECH TRIGGER COMPLETED / INTUBATION Pt IS A 54 Y.O. MALE ADMITTED SECONDARY TO [facility] S/P CABG. Pt HAS A PAST MEDICAL HISTORY SIGNIFICANT FOR HYPERTENSION AND ANEMIA. Pt CURRENTLY INTUBATED AND NPO. PLEASE REQUEST SPEECH THERAPY SERVICES FOR SKILLED BEDSIDE SWALLOW EVALUATION 24 HOURS POST EXTUBATION IF ANY S/S OF ASPIRATION ARISE WITH ORAL INTAKE. RACE RELATIONS PROFESSOR COORDINATED WITH NURSE SAMANIEGO. ALL QUESTIONS ANSWERED AT THIS TIME. Addendum: 12/28/[address] NOHELIA LERMA Amended: Links added.
[2024-12-28 17:18] LABS: INR 1.2 (0.85-1.15)
[2024-12-28 17:19] LABS: CREATININE 1.0 mg/dL (0.5-1.3); GLOMERULAR FILTR. RATE CALC 88.0 mL/min (>90); GLUCOSE,RANDOM 264.0 mg/dL (70-105); PHOSPHORUS 4.7 mg/dL (2.5-4.9); SODIUM SERUM 152.0 mmol/L (136-145); UREA NITROGEN, BLOOD 12.0 mg/dL (7-18)
--- NOTE | 2024-12-28 17:30 | NUR ---
Received patient from operating room hypertensive and tachy 120-[address] elevation to LAD and inferior. at the bedside aware of ST elevation and orders to start nitroglycerin drip continue with Epinephrine, Levophed and Lidocaine for blood pressures to be maintain between 140-160mmhg. Patient is to be extubated as per protocol. Balloon pump to left femoral, no hematoma or enduration noted. Will inform incoming nurse.
--- NOTE | 2024-12-28 18:19 | HMCIMG ---
EXAM: CR Chest, 1 View. CLINICAL HISTORY: s/p CABG COMPARISON: Radiograph from December 27, 2024 Findings: AP view of the chest is submitted. Right IJ central venous catheter tip projects over the SVC. Endotracheal tube terminates 1.5 cm above the buddy. Chest tubes overlie the middle mediastinum and left hemithorax. No pneumothorax. Mild bibasilar atelectasis, more pronounced on the left. No pleural effusion. Interval sternotomy. Mild cardiomegaly. Pulmonary vessels are within normal limits. IMPRESSION: 1. No acute cardiopulmonary findings. 2. Appropriately positioned right IJ central venous catheter, endotracheal tube, and chest tubes. 3. Mild bibasilar atelectasis, left greater than right. /[place]
[2024-12-28 18:27] LABS: ABG BASE EXCESS -3.3 mmol/L (-2.0-3.0); ABG HCO3 20.9 mmol/L (21.0-28.0); ABG OXYGEN SATURATION 97.8 % (94.0-98.0); ABG PCO2 34 mmHg (35-48); ABG PH 7.401 (7.350-7.450); CARBON MONOXIDE 0.3 % (0.5-1.5); DEVICE COMMENT ALINE RNSYLVIA; TEMPERATURE, CELSIUS BG 37.0 CELSIUS (35.5-37.0); VENT MODE, BG SIMV PS10 (ROOM AIR)
[2024-12-28] MEDS: ASPIRIN 81MG CHEW TAB NG ONE (18:28)
[2024-12-28 18:29] LABS: ABG BASE EXCESS -1.8 mmol/L (-2.0-3.0); ABG HCO3 22.1 mmol/L (21.0-28.0); ABG OXYGEN SATURATION 98.0 % (94.0-98.0); ABG PCO2 34 mmHg (35-48); ABG PH 7.425 (7.350-7.450); CARBON MONOXIDE 0.2 % (0.5-1.5); DEVICE COMMENT ALINE RNSYLVIA; PO2, ARTERIAL BG 122.7 mmHg (83.0-108.0); TEMPERATURE, CELSIUS BG 37.0 CELSIUS (35.5-37.0); VENT MODE, BG SIMV PS10 (ROOM AIR)
[2024-12-28 19:35] LABS: ABG BASE EXCESS -1.7 mmol/L (-2.0-3.0); ABG HCO3 22.6 mmol/L (21.0-28.0); ABG OXYGEN SATURATION 98.0 % (94.0-98.0); ABG PCO2 37 mmHg (35-48); ABG PH 7.407 (7.350-7.450); CARBON MONOXIDE 0.3 % (0.5-1.5); DEVICE COMMENT ALINE RN JES; TEMPERATURE, CELSIUS BG 37.0 CELSIUS (35.5-37.0); VENT MODE, BG SIMV PS10 (ROOM AIR)
[2024-12-28 19:38] LABS: ABG BASE EXCESS -2.9 mmol/L (-2.0-3.0); ABG HCO3 20.9 mmol/L (21.0-28.0); ABG OXYGEN SATURATION 98.2 % (94.0-98.0); ABG PCO2 33 mmHg (35-48); ABG PH 7.419 (7.350-7.450); CARBON MONOXIDE 0.5 % (0.5-1.5); DEVICE COMMENT ALINE RN JESS; PO2, ARTERIAL BG 125.7 mmHg (83.0-108.0); TEMPERATURE, CELSIUS BG 37.0 CELSIUS (35.5-37.0); VENT MODE, BG SIMV PS10 (ROOM AIR)
--- NOTE | 2024-12-28 20:24 | HMCIMG ---
EXAMINATION: DUPLEX ULTRASOUND EXAMINATION OF THE BILATERAL CAROTID AND VERTEBRAL ARTERIES. CLINICAL HISTORY: Pre operative CABG. COMPARISON: None provided. TECHNIQUE: Real-time ultrasound scan of the bilateral carotid and vertebral arteries, 2-D grayscale, with color Doppler flow and spectral waveform analysis. FINDINGS: Color and spectral Doppler interrogation of the carotid vessels on the right demonstrate peak systolic velocities as follows: CCA (Proximal and distal): 68 and 65 cm/s respectively. Bulb: 61 cm/s. ECA: 92 cm/s. ICA (Proximal and distal): 74 and 75 cm/s respectively. Vertebral artery demonstrates antegrade flow: 55 cm/s. Right ICA/CCA ratio: 1.1 Peak systolic velocities on the left are as follows: CCA (Proximal and distal): 67 and 76 cm/s respectively. Bulb: 62 cm/s. ECA: 90 cm/s. ICA (Proximal and distal): 81 and 83 cm/s respectively. Vertebral artery demonstrates antegrade flow: 81 cm/s. Left ICA/CCA ratio: 1.0 Both the common carotid arteries and their branches reveal mild intimal thickening. There are calcified plaques in the bilateral carotid bulb without significant stenosis. IMPRESSION: Mild intimal thickening in the bilateral carotid arteries and their branches. Calcified plaques in the bilateral carotid bulb without significant stenosis. There is no significant flow limiting lesions in the remainder of the arteries. /[place]
[2024-12-28 20:39] LABS: ABG BASE EXCESS -2.7 mmol/L (-2.0-3.0); ABG HCO3 20.8 mmol/L (21.0-28.0); ABG OXYGEN SATURATION 98.6 % (94.0-98.0); ABG PCO2 32 mmHg (35-48); ABG PH 7.434 (7.350-7.450); CARBON MONOXIDE 0.2 % (0.5-1.5); DEVICE COMMENT ALINE RN JESSE; PO2, ARTERIAL BG 152.0 mmHg (83.0-108.0); TEMPERATURE, CELSIUS BG 37.0 CELSIUS (35.5-37.0); VENT MODE, BG SIMV PS10 (ROOM AIR)
[2024-12-28] MEDS: FAMOTIDINE 20MG VIAL IV SCH (20:53)
[2024-12-28 21:53] LABS: ABG BASE EXCESS 0.1 mmol/L (-2.0-3.0); ABG HCO3 24.0 mmol/L (21.0-28.0); ABG OXYGEN SATURATION 97.6 % (94.0-98.0); ABG PCO2 36 mmHg (35-48); ABG PH 7.439 (7.350-7.450); CARBON MONOXIDE 0.3 % (0.5-1.5); DEVICE COMMENT ALINE RN JESSE; PO2, ARTERIAL BG 116.0 mmHg (83.0-108.0); TEMPERATURE, CELSIUS BG 37.0 CELSIUS (35.5-37.0); VENT MODE, BG SIMVPS10 (ROOM AIR)
[2024-12-28 23:17] LABS: ABG BASE EXCESS -3.9 mmol/L (-2.0-3.0); ABG HCO3 20.0 mmol/L (21.0-28.0); ABG OXYGEN SATURATION 98.1 % (94.0-98.0); ABG PCO2 32 mmHg (35-48); ABG PH 7.410 (7.350-7.450); CARBON MONOXIDE 0.4 % (0.5-1.5); DEVICE COMMENT ALINE RN JESSE; PO2, ARTERIAL BG 126.2 mmHg (83.0-108.0); TEMPERATURE, CELSIUS BG 37.0 CELSIUS (35.5-37.0); VENT MODE, BG SIMV PS10 (ROOM AIR)
[2024-12-28 23:59] LABS: ABG BASE EXCESS -2.8 mmol/L (-2.0-3.0); ABG HCO3 20.8 mmol/L (21.0-28.0); ABG OXYGEN SATURATION 98.4 % (94.0-98.0); ABG PCO2 32 mmHg (35-48); ABG PH 7.426 (7.350-7.450); CARBON MONOXIDE 0.3 % (0.5-1.5); DEVICE COMMENT ALINE RN JESSE; PO2, ARTERIAL BG 150.7 mmHg (83.0-108.0); TEMPERATURE, CELSIUS BG 37.0 CELSIUS (35.5-37.0); VENT MODE, BG SIMV PS10 (ROOM AIR)
[2024-12-29] VITALS (110 sets, daily range): BP systolic 74–163; BP diastolic 45–86; PULSE 86–123; RESP 5–48; TEMP 97.8–98.1; O2SAT 96–100
--- NOTE | 2024-12-29 00:10 | NUR ---
CVR EXTUBATION PT EXTUBATED AT 0010 PER CVR VENTILATOR WEANING PROTOCOL. PT PLACED ON A AEROSOL MASK 10L 40% FIO2. PT TOLERATED WELL AND APPEARS IN NO DISTRESS.
[2024-12-29 01:15] LABS: ABG BASE EXCESS 1.0 mmol/L (-2.0-3.0); ABG HCO3 26.2 mmol/L (21.0-28.0); ABG OXYGEN SATURATION 97.8 % (94.0-98.0); ABG PCO2 44 mmHg (35-48); ABG PH 7.390 (7.350-7.450); CARBON MONOXIDE 0.3 % (0.5-1.5); DEVICE COMMENT ALINE RN JESSE; TEMPERATURE, CELSIUS BG 37.0 CELSIUS (35.5-37.0); VENT MODE, BG CAFM (ROOM AIR)
[2024-12-29 01:17] LABS: ABG BASE EXCESS -0.5 mmol/L (-2.0-3.0); ABG HCO3 24.1 mmol/L (21.0-28.0); ABG OXYGEN SATURATION 97.9 % (94.0-98.0); ABG PCO2 39 mmHg (35-48); ABG PH 7.404 (7.350-7.450); CARBON MONOXIDE 0.3 % (0.5-1.5); DEVICE COMMENT ALINE RN JESSE; PO2, ARTERIAL BG 130.6 mmHg (83.0-108.0); TEMPERATURE, CELSIUS BG 37.0 CELSIUS (35.5-37.0); VENT MODE, BG CAFM (ROOM AIR)
[2024-12-29 05:23] LABS: NUCLEATED RED BLOOD CELLS 0.2 % (0.0-0.19); PLATELET COUNT (AUTO) 366.0 K/uL (130-400); RED BLOOD CELL COUNT(AUTO) 3.95 MIL/uL (4.50-6.20); RED CELL DISTRIBUTION WIDTH 19.7 % (11.0-15.5); WHITE BLOOD COUNT (AUTO) 10.6 K/uL (4.8-10.8)
[2024-12-29] MEDS: NOREPINEPHRIN 8MG/250ML NS 250 ML IV PRN (05:34)
[2024-12-29 05:36] LABS: INR 1.12 (0.85-1.15)
[2024-12-29 05:42] LABS: CREATININE 1.2 mg/dL (0.5-1.3); GLOMERULAR FILTR. RATE CALC 71.0 mL/min (>90); GLUCOSE,RANDOM 158.0 mg/dL (70-105); PHOSPHORUS 2.0 mg/dL (2.5-4.9); SODIUM SERUM 149.0 mmol/L (136-145); UREA NITROGEN, BLOOD 14.0 mg/dL (7-18)
--- NOTE | 2024-12-29 06:27 | EKG ---
[facility] Test Date: 2024-12-28 Test Time: 17:04:04 Pat Name: ZHEN CUMMINS Department: 2CV Room: 215 Gender: M Extension Forester: ADEN ALANIZ RN : 1970 Requested By: KATHRIN PONCE Order Number: [id number] Reading MD: Hugo Washington Measurements Intervals [place] Rate: 123 P: 65 VA: 129 QRS: 96 QRSD: 100 T: 75 QT: 319 QTc: 457 Interpretive Statements Sinus tachycardia Anterolateral infarct, acute (LAD) Compared to ECG 12/27/2024 05:22:47 Sinus rhythm no longer present Myocardial infarct finding still present Electronically Signed On 12-30-2024 12:20:47 CDT by Hugo Washington Please click the below link to view image of tracing.
[2024-12-29] MEDS: LIDOCAINE 2G/250ML 250 ML IV PRN (06:53)
[2024-12-29] MEDS: LACTULOSE 20 GM/30 ML UDCUP PO PRN (08:10)
[2024-12-29] MEDS: ALBUMIN (HUMAN) 5% 250 ML IV PRN (09:28)
--- NOTE | 2024-12-29 09:48 | HMCIMG ---
ABD 1VW REASON: ABDOMINAL DISTENTION FINDINGS: Single image of the abdomen was obtained. Bowel gas pattern is nonspecific. There is a nasogastric tube with the tip in the antrum of the stomach.. Bones and soft tissues appear unremarkable. There are no abnormal calcifications. There is no evidence of foreign body. Patient is status post median sternotomy. There is a surgical clips in the right lower quadrant. IMPRESSION: 1. Nonspecific gas pattern 2. Status post median sternotomy 3. Nasogastric tube with the tip in the antrum of the stomach.
--- NOTE | 2024-12-29 09:58 | HMCIMG ---
CHEST 1VW REASON: s/p CABG COMPARISON: 12/28/2024 is available. FINDINGS: Single view of the chest was obtained. Lungs are clear. Cardiac silhouette is normal size with median sternotomy. There is right-sided internal jugular vascular sheath in place. There is a left-sided chest tube in place. There is no pneumothorax.. There is no pulmonary vascular congestion. Mediastinum and bony thorax appear unremarkable. IMPRESSION: 1. No acute cardiopulmonary process and unchanged from prior study 2. Support lines in satisfactory position 3. Status post median sternotomy.
--- NOTE | 2024-12-29 09:59 | OP ---
DATE OF PROCEDURE: 12/28/2024 PREOPERATIVE DIAGNOSIS: Coronary artery disease, 3-vessel, diffuse disease. POSTOPERATIVE DIAGNOSIS: Coronary artery disease, 3-vessel, diffuse disease. PROCEDURES PERFORMED: * Open CABG x 4. * TORRES to proximal LAD. * Reverse saphenous vein graft to distal LAD. * Reverse saphenous vein graft to oblique marginal 2. * Reverse saphenous vein graft to PDA. SURGEON: Isac Ames MD. HARDWARE ENGINEER: Sean. ANESTHESIA: Jersey Leigh MD. CRUTCH MAKER: [facility]. DISPOSITION: Stable. COMPLICATIONS: None. INDICATIONS: This is a patient from [place] who was referred for surgical revascularization. The patient has diffuse disease in the small LAD, calcific disease also in oblique marginal, and a proximal PDA lesion. I have had the opportunity to review the films, the medical record, examined the patient, and discussed the plan of care with the caring utility bill collection clerk's information. We both agree with surgery as indicated we recommended. I have discussed with the patient the indications for surgery, as well as the potential complications of the operation including, but not limited to postoperative bleeding, infection, stroke, and/or . He understands this as well as associated morbidity, mortality, procedures as it relates to his clinical comorbidities, namely diffuse coronary artery disease with small targets. He would like to proceed with surgery. He also understands that there is an associated mortality and morbidity. IMPLANTS: Three ERIC plates with eighteen #16 gauge screws. DRAINS: A #32 mediastinal, #19 left-sided Aidan. FINDINGS AT THE TIME OF SURGERY: There was a lesion on the LAD distal, proximal to about a third [address] way down. The mammary artery was anastomosed to the LAD just distal to the proximal obstruction and the second saphenous vein graft was anastomosed to the apex of the heart, distal to the calcific lesion. The larger oblique margin was bypassed. The PDA was bypassed distal to the obstruction. An intraaortic balloon pump was placed. Echocardiogram demonstrates good function at the end of the procedure. After bypassing the main LAD, the apex was still dyskinetic, and that is why I opted to bypass the distal LAD with a vein graft. Two proximal anastomoses were performed utilizing partial occlusion clamp, and the Heartstring device was utilized to perform the anastomosis of the LAD. At the end of the procedure, the apex was moving nicely. Ejection fraction was preserved and the ST segments were coming down. DESCRIPTION OF PROCEDURE IN DETAIL: With the patient in the supine position after adequate induction general anesthesia, preoperative intravenous antibiotics, percutaneous arterial and venous lines, surgeon-directed timeline, utilizing two-patient identifiers, followed by median sternotomy harvesting of the left internal mammary artery and greater saphenous vein from the left lower extremity using endoscopic technique. The patient is systemically heparinized and the mammary artery was from the chest for bypass. Surgical retractors were placed utilizing the mechanical stabilizers control. Three distal anastomosis performed between TORRES and LAD, reverse saphenous vein graft and proximal PDA, and reverse saphenous vein graft and larger oblique marginal. The last oblique margin was very small and was totally occluded. A partial occlusion clamp placed and two 4.9 mm punches were performed. Running suture of 5-0 Prolene to construct the proximal anastomosis. The echocardiogram was utilized to monitor function and EKG. At this time, the apex still looked dyskinetic. Therefore, the decision is to bypass the LAD distal to the apical lesion. A saphenous vein graft was utilized to bypass end-to-side distal LAD and proximal anastomosis was performed on the ascending aorta utilizing the Heartstring device. The patient received 10,000 units of heparin first and then another 5000 for the last anastomosis. The transesophageal echocardiogram demonstrates much better function of the apex after the distal LAD bypass. HEMOSTASIS AND CLOSURE: Two chest drains sternum. Open reduction and internal fixation three ERIC plates and eighteen #16 gauge screws, #1 Vicryl interrupted for closure. The patient was then transferred to the ICU in stable condition. An intraarticular balloon pump was placed on the left groin and position corroborated by transesophageal echocardiogram. TID: [id number] RECEIPT: [id number]
--- NOTE | 2024-12-29 10:28 | CONS ---
REASON FOR CONSULTATION: A 54-year-old gentleman who presented to the hospital with chest pain and cardiac catheterization which demonstrates aortic stenosis with area of 0.7 cm2 and high-grade indicative of severe aortic stenosis. The patient has also 50% to 60% left main coronary artery disease and is referred for an AVR CABG. PHYSICAL EXAMINATION: The patient is found to have some cavities on the molars, one of them which appears to be painful, indicative of acute infection. ASSESSMENT AND PLAN: I have looked at the imaging and discussed the case with Dr. Landis, we both agreed surgery is indicated and we have recommended an AVR CABG. The patient understands the indications for surgery as well as the potential complications of the operation including, but not limited to postoperative bleeding, infection, stroke, and/or . He is also understanding of the associated morbidity and mortality of the procedure as it relates to external comorbidities and as depicted under satisfactory surgeon's clinical current database and expressed in the manner of morbidity to mortality and he wishes to proceed. He also is aware that he needs to have his cavity looked at prior to performing the AVR CABG and he is knowledgeable in this situation and is going to be following with a dentist after which we will proceed with AVR CABG. TID: [id number] RECEIPT: [id number]
--- NOTE | 2024-12-29 11:19 | PN ---
[facility] CARDIOLOGY PROGRESS NOTE Date Patient Seen: Dec 29, 2024 Time of Visit: 11:16 Problem List: ACSNSTEMI MVCAD Interval History: POD 1 from CABG IABP 1:1 On lidocaine, insulin, norepi, epi, nitro Minimal chest wall pain Chest tube output 300cc over 12 hours Physical Examination: GENERAL: [No acute distress.] NECK: R CVC LUNGS: [on 4L O2 via NC. diminished inspiratory effort. No wheezes, or rhonchi.] HEART: [Normal rate and rhythm. Normal S1 and S2 without murmurs, gallop or rub.] VASC: [Peripheral pulses +2 bilaterally.] ABD: distended, tense, nontender EXT: [No cyanosis or edema. IABP in place SKIN: [No rashes or lesions noted.] NEURO: [Awake, alert, and oriented x3. No focal sensory or strength deficits noted.] Laboratory: [ ] Hematology Labs: Test 12/29/24 04:25 Range/Units White Blood Count 10.6 4.8-10.8 K/uL Red Blood Count 3.95 L 4.50-6.20 MIL/uL Hemoglobin 9.6 L 14.0-18.0 g/dL Hematocrit 30.0 L 42-54 % Mean Corpuscular Volume 75.9 L 79-99 fL Mean Corpuscular Hemoglobin 24.3 L 27.0-33.0 pg Mean Corpuscular Hemoglobin Concent 32.0 32.0-36.0 g/dL Red Cell Distribution Width 19.7 H 11.0-15.5 % Platelet Count 366 130-400 K/uL Mean Platelet Volume 10.5 7.5-10.5 fL Nucleated Red Blood Cells 0.2 H 0.0-0.19 % Chemistry Labs: Test 12/29/24 10:23 12/29/24 04:25 Range/Units Whole Blood Glucose 131 H 70-110 MG/DL Sodium Level 149 H 136-145 mmol/L Potassium Level 4.2 3.5-5.1 mmol/L Chloride Level 112 H 101-111 mmol/L Carbon Dioxide Level 29 21-32 mmol/L Blood Urea Nitrogen 14 7-18 mg/dL Creatinine 1.2 0.5-1.3 mg/dL Glomerular Filtration Rate Calc 71 >90 mL/min Random Glucose 158 H 70-105 mg/dL Total Calcium 9.1 8.5-10.1 mg/dL Ionized Calcium 1.23 1.15-1.33 MMOL/L Phosphorus Level 2.0 #L 2.5-4.9 mg/dL Magnesium Level 2.10 1.80-2.40 mg/dL Coagulation Labs: Test 12/29/24 04:25 Range/Units Prothrombin Time 11.7 H 9.6-11.6 SEC Prothromb Time International Ratio 1.12 0.85-1.15 Activated Partial Thromboplast Time 26.6 # 26.3-35.5 SEC Impression and Plan: ACS-NSTEMI MVCAD s/p CABG with VG-RCA, VG-OM, TORRES-LAD Post operative hypotension Hypertension ICMP LVE 45-50 Anemia Continue asa, statin Immediate post op care per CTS No ventricular arrhythmias Patient with chest wall pain however well palliated MACEY GALO DO Dec 29, 2024 11:19
[2024-12-29 11:24] LABS: ABG BASE EXCESS -0.7 mmol/L (-2.0-3.0); ABG HCO3 23.3 mmol/L (21.0-28.0); ABG OXYGEN SATURATION 93.9 % (94.0-98.0); ABG PCO2 36 mmHg (35-48); ABG PH 7.429 (7.350-7.450); CARBON MONOXIDE 0.1 % (0.5-1.5); PO2, ARTERIAL BG 72.3 mmHg (83.0-108.0); TEMPERATURE, CELSIUS BG 37.0 CELSIUS (35.5-37.0); VENT MODE, BG NC 3L (ROOM AIR)
[2024-12-29 12:24] LABS: IMMATURE GRANULOCYTE ABSOLUTE 0.05 K/uL (0-1); NUCLEATED RED BLOOD CELLS 0.4 % (0.0-0.19); PLATELET COUNT (AUTO) 284 K/uL (130-400); RED BLOOD CELL COUNT(AUTO) 3.51 MIL/uL (4.50-6.20); RED CELL DISTRIBUTION WIDTH 20.0 % (11.0-15.5); WHITE BLOOD COUNT (AUTO) 9.5 K/uL (4.8-10.8)
[2024-12-29 12:39] LABS: CREATININE 1.9 mg/dL (0.5-1.3); GLOMERULAR FILTR. RATE CALC 41.0 mL/min (>90); GLUCOSE,RANDOM 137.0 mg/dL (70-105); PHOSPHORUS 5.3 mg/dL (2.5-4.9); SODIUM SERUM 150.0 mmol/L (136-145); UREA NITROGEN, BLOOD 16.0 mg/dL (7-18)
--- NOTE | 2024-12-29 14:08 | PN ---
SUBJECTIVE: A 54-year-old man, status post CABG for myocardial infarction. OBJECTIVE: GENERAL: Awake, alert, in no acute distress. Intraaortic balloon pump 1-2. Hemodynamically stable. VITAL SIGNS: Stable as recorded in the medical record. CHEST: Sternum stable. Chest tubes in place. Minimal drainage. EXTREMITIES: Well perfused. ASSESSMENT: Status post CABG. PROBLEMS: * Coronary artery disease. The patient has diffuse coronary artery disease. We will start aspirin 81 mg plus Plavix 75 mg once a day. * Fluid overload. Lasix 20 mg once a day IV. * Dyslipidemia. Lipitor 40 mg once a day. PLAN: Wean intraaortic balloon pump. Plan to remove today or tomorrow morning. Continue to wean inotropes as tolerated. TID: [id number] RECEIPT: [id number]
--- NOTE | 2024-12-29 14:35 | PN ---
[facility] PROGRESS NOTE Date of Service: Dec 29, 2024 Time of Service: 14:34 SUBJECTIVE: This is a 54-year-old male who presented to [facility] with a non-STEMI. He underwent left heart catheterization which showed severe multi-vessel coronary artery disease with mid to apical inferior hypokinesis, LVEF 45-50%. He underwent echocardiogram 12/19/2024 which showed an ejection fraction of 55- 60%, mild LVH, normal-sized left atrium, mild mitral valve regurgitation and mild tricuspid valve regurgitation. He was transferred [place] [facility] [place]. 12/25 patient remains admitted to the PCU, case discussed with the RN, no acute events overnight, he denied chest pain, shortness shortness for breath, no nausea, no vomiting, no abdominal discomfort. Cardiology input noted and appreciated, patient to continue aspirin 81 mg p.o. daily and atorvastatin 40 mg p.o. daily. Continue metoprolol tartrate 25 mg p.o. b.i.d.. Pending evaluation by CT surgery for consideration for CABG. Discussed with the patient. 12/26 patient remains admitted to the PCU, case discussed with the RN, no acute events overnight, the time of my visit the patient is comfortably in bed, alert oriented x3, eating breakfast, tolerating well, denies nausea, no vomiting, no abdominal discomfort, he denies chest pain, no shortness a breath. Remains on aspirin 81 mg p.o. daily, atorvastatin and metoprolol 25 mg p.o. b.i.d.. Pending evaluation by CT surgery for consideration of CABG. 12/27 patient is seen and examined at bedside, case discussed with the RN, no acute events overnight, currently the patient NPO, scheduled for CABG today by Cardiothoracic surgeon. We will continue to follow. 12/28 patient is seen and examined at bedside, case discussed with the RN, no acute events overnight, currently the patient NPO, scheduled for CABG today by Cardiothoracic surgeon. We will continue to follow. 12/29 patient is seen and examined at bedside, remains admitted to the ICU, postoperative day 1., status post CABG 12/28/2024, patient on insulin drip, nitroglycerin drip, alert oriented x3 following commands, however was mildly agitated earlier this morning, motion with the RN started on Precedex. Patient with chest tube in place. Further recommendations per Cardiothoracic surgeon. REVIEW OF SYSTEMS CONSTITUTIONAL: Denies fevers, chills, or night sweats. No unintentional weight loss reported. NEUROLOGICAL: Denies headache, amaurosis fugax, motor weakness, sensory deficit, vertigo/spinning sensation, gait abnormalities, or tremors. ENT: No hearing loss, otalgia, otorrhea, rhinitis, rhinorrhea, hoarseness, or sore throat. CARDIOVASCULAR: Denies any exertional angina, dyspnea on exertion, orthopnea, paroxysmal nocturnal dyspnea, palpitations, life-threatening arrhythmias, claudication. PULMONARY: Denies any shortness of breath, cough, phlegm/sputum, hemoptysis, pleuritic chest pain. SLEEP: Denies morning headaches, daytime somnolence or napping. Denies difficulty falling asleep, staying asleep, waking from sleep. Denies knowledge of snoring. GASTROINTESTINAL: Denies any type of dysphagia to either liquids or solids. Denies nausea, vomiting, pyrosis, early satiety, abdominal pain, diarrhea, constipation, or changes in stool consistency or caliber. Denies coffee-ground emesis, hematemesis, hematochezia, or melanotic stools. GENITOURINARY: Denies frequency, urgency, nocturia, hematuria or incontinence (Storage/Irritative symptoms.) Low urinary stream, straining to void, urinary intermittency or hesitancy, splitting of the voiding stream, terminal dribbling. ENDOCRINOLOGIC: Denies polyuria, polydipsia, polyphagia or heat/cold intolerances. HEMATOLOGIC: Denies thrombophilia/previous clots, or coagulopathy/bleeding disorders. ONCOLOGIC: Denies personal history of malignancy. DERMATOLOGIC: Denies rashes or pruritus. PSYCHIATRIC: Denies any suicidal or homicidal ideation. Denies hallucinations. PHYSICAL EXAM GENERAL APPEARANCE: The patient is awake, mildly confused, on Precedex, nitroglycerin drip. NEUROLOGICAL: Cranial nerves II-XII grossly intact. Motor is 5/5 in bilateral upper and lower extremities proximal to distal. No sensory deficits. HEENT: Face is symmetric. Pupils are equal and reactive. Extraocular movements are intact. NECK: Supple. No JVD. No thyromegaly. No submental, submandibular, pre- /postauricular, occipital or supraclavicular lymphadenopathy. CHEST: Normal chest expansion. No Telemetry. LUNGS: Absence of any rales, rhonchi or any wheezing. Chest tube in place. CARDIOVASCULAR: Regular. S1 and S2 normal. No appreciable rubs, murmurs or gallops. ABDOMEN: Soft, nontender, and nondistended. There is no rebound, voluntary guarding, or rigidity. : Deferred. No Andres. EXTREMITIES: Non-edematous and not cyanotic. No clubbing. Good capillary refill. SKIN: No skin breakdown. Vital Signs (last 8hr) Date Time Temp Pulse Resp B/P (MAP) Pulse Ox O2 Delivery O2 Flow Rate FiO2 12/29/24 14:19 131/62 12/29/24 13:00 93 12 126/63 (84) 99 12/29/24 12:45 99 21 118/63 (81) 96 12/29/24 12:42 103 24 116/65 (82) 97 107/76 (86) 12/29/24 12:30 94 18 81/45 (57) 100 12/29/24 12:15 96 17 74/46 (55) 96 32 12/29/24 12:00 104 22 93/49 (64) 98 32 12/29/24 11:45 104 28 95/51 (66) 96 32 12/29/24 11:41 104 25 107/51 (69) 96 32 118/58 (78) 12/29/24 11:30 123 27 147/67 (93) 95 32 12/29/24 11:30 99 Nasal Cannula* 4 36 12/29/24 11:15 114 30 163/78 (106) 97 32 12/29/24 11:00 117 31 158/73 (101) 97 32 12/29/24 10:45 100 23 130/61 (84) 97 32 12/29/24 10:41 101 23 126/66 (86) 99 32 111/55 (73) 12/29/24 10:30 99 21 123/64 (83) 97 32 12/29/24 10:15 101 25 116/59 (78) 98 32 12/29/24 10:00 100 24 120/59 (79) 99 32 12/29/24 09:45 99 22 105/57 (73) 100 32 12/29/24 09:41 100 27 106/57 (73) 98 32 105/73 (84) 12/29/24 09:30 99 24 104/61 (75) 99 32 12/29/24 09:15 103 26 97/56 (70) 99 32 12/29/24 09:00 103 26 85/52 (63) 99 32 12/29/24 08:45 101 18 109/57 (74) 99 32 12/29/24 08:41 101 24 107/57 (74) 97 32 103/57 (72) 12/29/24 08:35 103 18 N/Cannula Low lpm 3.0 32 12/29/24 08:30 102 24 99/55 (70) 98 32 12/29/24 08:15 104 22 103/56 (72) 97 32 12/29/24 08:00 106 25 93/52 (66) 97 32 12/29/24 07:45 106 21 94/53 (67) 98 32 12/29/24 07:41 107 20 92/53 (66) 98 32 95/49 (64) 12/29/24 07:30 99 Nasal Cannula* 3 32 12/29/24 07:30 109 16 98/58 (71) 98 32 12/29/24 07:30 97.9 12/29/24 07:15 111 16 94/56 (69) 96 32 12/29/24 07:00 116 16 153/84 (107) 93 12/29/24 06:45 103 16 97/54 (68) 99 113/50 (71) LABS: Laboratory: Test 12/29/24 12:15 12/29/24 11:23 12/29/24 10:23 12/29/24 04:25 Range/Units White Blood Count 9.5 4.8-10.8 K/uL Red Blood Count 3.51 L 4.50-6.20 MIL/uL Hemoglobin 8.7 L 14.0-18.0 g/dL Hematocrit 26.9 L 42-54 % Mean Corpuscular Volume 76.6 L 79-99 fL Mean Corpuscular Hemoglobin 24.8 L 27.0-33.0 pg Mean Corpuscular Hemoglobin Concent 32.3 32.0-36.0 g/dL Red Cell Distribution Width 20.0 H 11.0-15.5 % Platelet Count 284 130-400 K/uL Mean Platelet Volume 10.0 7.5-10.5 fL Immature Granulocyte % (Auto) 0.5 0-1 % Neutrophils (%) (Auto) 75.2 40.0-77.0 % Lymphocytes (%) (Auto) 16.4 L 21.0-51.0 % Monocytes (%) (Auto) 7.3 3.0-13.0 % Eosinophils (%) (Auto) 0.2 0.0-8.0 % Basophils (%) (Auto) 0.4 0.0-5.0 % Neutrophils # (Auto) 7.1 1.8-7.7 K/uL Lymphocytes # (Auto) 1.6 1.0-4.8 K/uL Monocytes # (Auto) 0.7 0.1-1.0 K/uL Eosinophils # (Auto) 0.02 0.00-0.70 K/uL Basophils # (Auto) 0.04 0.00-0.20 K/uL Absolute Immature Granulocyte (auto 0.05 0-1 K/uL Nucleated Red Blood Cells 0.4 H 0.0-0.19 % Sodium Level 150 H 136-145 mmol/L Potassium Level 5.2 H 3.5-5.1 mmol/L Chloride Level 111 101-111 mmol/L Carbon Dioxide Level 25 21-32 mmol/L Blood Urea Nitrogen 16 7-18 mg/dL Creatinine 1.9 H 0.5-1.3 mg/dL Glomerular Filtration Rate Calc 41 >90 mL/min Random Glucose 137 H 70-105 mg/dL Total Calcium 8.7 8.5-10.1 mg/dL Phosphorus Level 5.3 #H 2.5-4.9 mg/dL Magnesium Level 2.00 1.80-2.40 mg/dL Blood Gas Specimen Type Arterial Arterial Blood pH 7.429 7.350-7.450 Arterial Blood Partial Pressure CO2 36 35-48 mmHg Arterial Blood Partial Pressure O2 72.3 L 83.0-108.0 mmHg Arterial Blood HCO3 23.3 21.0-28.0 mmol/L Arterial Blood Oxygen Saturation 93.9 L 94.0-98.0 % Arterial Blood Base Excess -0.7 -2.0-3.0 mmol/L Hemoglobin (Blood Gas) 10.3 L 13.5-17.5 g/dL Sodium (Blood Gas) 142 136-145 MMOL/L Bedside Potassium (Blood Gas) 5.3 H 3.4-4.5 MMOL/L Bedside Chloride (Blood Gas) 107 98-107 MMOL/L Bedside Glucose (Blood Gas) 136 H 65-95 MG/DL Bedside Ionized Calcium (Blood Gas) 1.19 1.15-1.33 MMOL/L Bedside Lactic Acid (Blood Gas) 3.18 *H 0.36-0.75 MMOL/L Blood Gas Temperature 37.0 35.5-37.0 CELSIUS Blood Gas Flow-by 3.00 0.00-15.00 L/min Blood Gas Vent Mode NC 3L ROOM AIR FiO2 32.0 % Blood Gas Specimen Comment ADEN MCGINNIS RN Whole Blood Glucose 131 H 70-110 MG/DL Prothrombin Time 11.7 H 9.6-11.6 SEC Prothromb Time International Ratio 1.12 0.85-1.15 Activated Partial Thromboplast Time 26.6 # 26.3-35.5 SEC Ionized Calcium 1.23 1.15-1.33 MMOL/L Test 12/28/24 23:55 Range/Units Blood Gas Respiration Rate 4.0 min. Blood Gas Tidal Volume 600 ml Blood Gas PEEP 5 cm H2O Current Medications Medications (Trade) Dose Ordered Sig/Mila Route PRN Reason Start Time Stop Time Status Last Admin Dose Admin Acetaminophen (TYLenol 325MG TAB) 650 mg Q4H PRN PO Temp >38.3C(AFTER EXTUBATION) 12/28/24 14:00 01/27/25 13:59 Acetaminophen (TYLenol 325MG TAB) 650 mg Q6H PRN PO MILD PAIN (1-3) 12/24/24 01:30 12/28/24 13:57 DC 12/27/24 23:45 650 MG Acetaminophen (TYLenol 325MG TAB) 650 mg Q6H PRN PO TEMPERATURE GREATER THAN 101.5 12/24/24 03:00 12/28/24 14:10 DC Acetaminophen (TYLenol 325MG TAB) 650 mg Q6H PRN PO MILD PAIN (1-3) 12/28/24 14:00 01/27/25 13:59 Acetaminophen (TYLenol 650MG SUPPOSITORY) 650 mg Q4H PRN RC Temp >38.3C WHILE INTUBATED 12/28/24 14:00 01/27/25 13:59 Acetaminophen (acetaMINOPHEN) 1,000 mg Q6H6 IV 12/28/24 18:00 12/29/24 17:59 12/29/24 12:00 1,000 MG Albumin Human 250 ml @ 0 mls/hr AD PRN IV IF HEMODYNAMICALLY UNSTABLE 12/28/24 14:00 12/29/24 09:28 DC 12/29/24 09:28 250 MLS/HR Aminocaproic Acid 77869 mg/Sodium Chloride 310 ml @ 25 mls/hr AD IV 12/28/24 14:00 12/28/24 14:14 DC Aminocaproic Acid 34340 mg/Sodium Chloride 480 ml @ 0 mls/hr AD PRN IV BLEEDING CONTROL 12/27/24 11:00 01/26/25 10:59 Aspirin (Aspirin 81mg Ec Tab) 81 mg DAILY PO 12/24/24 09:00 01/23/25 08:59 12/29/24 08:10 81 MG Atorvastatin Calcium (LIPItor 40MG) 40 mg HS PO 12/24/24 21:00 01/23/25 20:59 12/28/24 20:53 40 MG Bisacodyl (DulcoLAX) 10 mg DAILY PRN RC CONSTIPATION - MOM INEFFECTIVE 12/29/24 14:00 01/28/25 13:59 Calcium Gluconate 1 gm/Sodium Chloride 60 ml @ 200 mls/hr AD PRN IV HYPOCALCEMIA 12/28/24 14:00 01/27/25 13:59 Cefazolin Sodium (ANCEF 1 gm vial) 2 gm ONCALL IVP 12/26/24 16:30 12/26/24 16:28 DC Cefazolin Sodium (Ancef) 2 gm ONCALL PRN IVP SURGERY 12/26/24 16:30 12/28/24 13:57 DC Cefazolin Sodium (Ancef) 2 gm Q8H IVPB 12/28/24 19:00 12/29/24 11:01 DC 12/29/24 11:04 2 GM Dexmedetomidine/ Sodium Chloride (PRECEdex 400MCG/ 100ML-NS) 400 mcg PROTOCOL IV 12/28/24 14:00 12/29/24 13:59 DC 12/29/24 12:16 400 MCG Dextrose (D50w) 50 ml AD PRN IV HYPOGLYCEMIA PROTOCOL 12/28/24 14:00 01/27/25 13:59 Dobutamine HCl/ Dextrose 250 ml @ 0 mls/hr PROTOCOL IV 12/29/24 14:00 01/28/25 13:59 12/29/24 14:19 8.6 MLS/HR Docusate Sodium (COLace 100MG CAP) 100 mg BID PO 12/28/24 21:00 12/29/24 08:01 DC 12/28/24 20:53 100 MG Docusate Sodium (COLace LIQUID 100MG/10ML) 100 mg BID PO 12/29/24 08:00 01/28/25 07:59 12/29/24 08:09 100 MG Enoxaparin Sodium (Lovenox) 30 mg DAILY SQ 12/31/24 09:00 01/30/25 08:59 Epinephrine HCl 10 mg/Sodium Chloride 250 ml @ 0 mls/hr AD PRN IV TITRATE 12/27/24 11:00 01/26/25 10:59 Epinephrine HCl 10 mg/Sodium Chloride 250 ml @ 0 mls/hr AD PRN IV POST-OP CARDIOVASCULAR ORDERS 12/28/24 14:00 12/28/24 14:14 DC Famotidine (Pepcid 20mg Vial) 20 mg BID IV 12/28/24 21:00 01/27/25 20:59 12/29/24 08:09 20 MG Famotidine (Pepcid 20mg Tab) 20 mg DAILY PO 12/24/24 09:00 12/28/24 13:54 DC 12/26/24 10:19 20 MG Furosemide (LASix 20MG TAB) 20 mg Q12H PO 12/30/24 09:00 01/29/25 08:59 Future Hold Furosemide (LASix 20MG VIAL) 20 mg Q12H IV 12/29/24 09:00 12/30/24 08:59 Hold 12/29/24 09:20 20 MG Furosemide 100 mg/ Sodium Chloride 100 ml @ 0 mls/hr PROTOCOL IV 12/29/24 14:30 01/28/25 14:29 Glucagon (Glucagon 1mg Kit) 1 mg AD PRN IM HYPOGLYCEMIA PROTOCOL 12/28/24 14:00 01/27/25 13:59 Heparin Sodium (Porcine) (HEParin 5,000 UNIT VIAL) *calculation based on ACTUAL B... AD PRN IV HEPARIN PROTOCOL 12/24/24 02:30 12/28/24 13:54 DC 12/24/24 17:32 5,000 UNIT Heparin Sodium/ Dextrose 250 ml @ 0 mls/hr Q6H IV 12/24/24 02:30 12/28/24 13:54 DC 12/27/24 17:04 11.3 MLS/HR Hydralazine HCl (APRESOLine 20MG INJ) 10 mg Q6H PRN IV For:SBP above 160;DBP above 90 12/24/24 03:00 12/28/24 13:54 DC Insulin Human Regular 100 unit/ Sodium Chloride 100 ml @ 0 mls/hr AD IV 12/28/24 14:00 12/30/24 13:59 12/28/24 17:09 5 MLS/HR Lactulose (Constulose 20gm/ 30ml Udcup) 20 gm BID PRN PO CONSTIPATION 12/24/24 03:00 12/28/24 13:54 DC 12/26/24 21:30 20 GM Lactulose (Constulose 20gm/ 30ml Udcup) 20 gm BID PRN PO CONSTIPATION 12/28/24 14:00 01/27/25 13:59 12/29/24 08:10 20 GM Lidocaine HCl/ Dextrose 250 ml @ 0 mls/hr AD PRN IV TITRATE 12/28/24 22:30 01/27/25 22:29 12/29/24 06:53 15 MLS/HR Magnesium Hydroxide (Milk Of Magnesium 30ml) 30 ml DAILY PRN PO CONSTIPATION 12/28/24 14:00 01/27/25 13:59 Magnesium Sulfate 50 ml @ 12.5 mls/hr AD PRN IV MAG LEVEL LESS THAN 2.0 12/28/24 14:00 01/27/25 13:59 12/28/24 18:42 12.5 MLS/HR Magnesium Sulfate 50 ml @ 0 mls/hr PROTOCOL PRN IV MAGNESIUM PROTOCOL 12/26/24 15:00 12/28/24 14:10 DC Metoprolol Tartrate (loprESSOR) 12.5 mg BID PO 12/30/24 09:00 01/29/25 08:59 Metoprolol Tartrate (loprESSOR) 25 mg BID PO 12/25/24 21:00 12/28/24 13:54 DC 12/28/24 09:28 25 MG Morphine Sulfate (morPHINE 2MG SYG) 0.5 mg Q2H PRN IV MODERATE PAIN (4-6) 12/28/24 14:00 12/29/24 13:59 DC Morphine Sulfate (morPHINE 2MG SYG) 1 mg Q2H PRN IV SEVERE PAIN (7-10) 12/28/24 14:00 12/29/24 13:59 DC 12/28/24 17:05 1 MG Morphine Sulfate (morPHINE 2MG SYG) 2 mg Q4H PRN IVP SEVERE PAIN (7-10) 12/24/24 03:00 12/28/24 13:54 DC 12/26/24 02:43 2 MG Nitroglycerin (Nitroglycerin 1gm Oint) 0.5 inch Q8H5 TD 12/24/24 01:30 12/28/24 13:54 DC 12/27/24 12:57 0.5 INCH Nitroglycerin/ Dextrose 0 ml @ 0 mls/hr AD IV 12/28/24 14:00 12/31/24 13:59 Norepinephrine Bitartrate 250 ml @ 0 mls/hr AD PRN IV TITRATE 12/27/24 11:00 01/26/25 10:59 12/29/24 05:34 11.3 MLS/HR Norepinephrine Bitartrate 8 mg/ Dextrose 250 ml @ 0 mls/hr AD PRN IV POST-OP CARDIOVASCULAR ORDERS 12/28/24 14:00 12/28/24 14:14 DC Ondansetron HCl (zoFRAN 4MG INJ) 4 mg Q6H PRN IV NAUSEA/VOMITING 12/24/24 03:00 12/28/24 13:54 DC Ondansetron HCl (zoFRAN 4MG INJ) 4 mg Q6H PRN IV NAUSEA/VOMITING 12/28/24 14:00 01/27/25 13:59 12/29/24 07:13 4 MG Potassium Phosphate 250 ml @ 42 mls/hr AD PRN IV LOW PHOS LEVEL 12/28/24 14:00 01/27/25 13:59 12/29/24 06:12 42 MLS/HR Potassium Chloride 100 ml @ 100 mls/hr AD PRN IV POTASSIUM PROTOCOL 12/26/24 15:00 12/28/24 13:54 DC Potassium Chloride 100 ml @ 100 mls/hr AD PRN IV HYPOKALEMIA 12/28/24 14:00 01/27/25 13:59 12/29/24 01:21 100 MLS/HR Potassium Chloride (K-Dur/Klor-Con 20meq) 20 meq AD PRN PO POTASSIUM PROTOCOL 12/26/24 15:00 12/28/24 13:54 DC 12/26/24 18:27 20 MEQ Potassium Chloride (KCl 10% Elixir 20meq/15ml) 20 meq AD PRN PO POTASSIUM PROTOCOL 12/26/24 15:00 12/28/24 13:54 DC Propofol 100 ml @ 0 mls/hr AD PRN IV SEDATION 12/28/24 14:00 01/01/25 13:59 Sodium Bicarbonate (Sodium Bicarb 50meq 50ml Vial) 50 meq AD PRN IV OTHER[SEE DOSING INSTRUCTIONS] 12/28/24 14:00 12/31/24 13:59 12/29/24 00:16 50 MEQ Sodium Chloride 500 ml @ 0 mls/hr AD IV 12/28/24 14:00 01/27/25 13:59 Sodium Chloride 1,000 ml @ 10 mls/hr ONCE IV 12/28/24 14:00 12/29/24 13:59 DC 12/28/24 17:06 10 MLS/HR Sodium Chloride (NS Flush 10ml) 10 ml Q8H PRN IVP IV LINE FLUSH 12/28/24 14:00 01/27/25 13:59 Tramadol HCl (UltRAM) 25 mg Q6H PRN PO MODERATE PAIN (4-6) 12/28/24 14:00 12/29/24 13:56 DC 12/29/24 11:05 25 MG Tramadol HCl (UltRAM) 50 mg Q6H PRN PO SEVERE PAIN (7-10) 12/28/24 14:00 12/29/24 13:56 DC DIAGNOSTICS / RADIOLOGY: [ ] ASSESSMENT: 1. Non-STEMI. 2. Multi-vessel coronary artery disease status post CABG 12/28/2024 3. Mild ischemic cardiomyopathy with LVEF 45-50 by left heart catheterization. 4. Hypertension. 5. Anemia. PLAN: NEURO: Minimize central acting medications as possible. Fall Precautions. Well lighted room through the day and minimize interruptions through the night to prevent acute delirium. PULMONARY: Supplemental 02 as needed BiPAP as necessary, for respiratory distress Titrate Fio2 to keep Spo2 > or = 90% DuoNebs and CPT as needed IS hourly while awake for pulmonary hygiene prn Out of bed to chair as tolerated Maintain aspiration precautions at all times CARDIOVASCULAR: Follow hemodynamics. Vital signs per facility protocol GI & NUTRITION: Continue nutritional support Aspirations precautions Prokinetic agents and laxatives as needed KIDNEYS & ELECTROLYTES: Strict monitoring of intake and output Daily weights Avoid nephrotoxic agents Monitor electrolytes and replace as needed Goal urine output of 30mL/hr or 0.5mL/kg/hr Medications to be dosed according to renal function. Avoid contrast if possible ENDOCRINE: Maintain blood glucose between 100-180 at all times. Insulin sliding scale for blood glucose management Hypoglycemia and hyperglycemia protocol in place INFECTIOUS DISEASE: Trend temperature, WBC and procalcitonin level Follow cultures, deescalate antibiotics as soon as possible. Panculture if new onset fever HEMATOLOGY & COAGULATION: Monitor H&H. Keep Hgb > 7 Transfuse 1 unit of PRBC for Hgb < 7 Transfuse 1 pack of platelets of platelets < 20, 000 Watch for any signs and symptoms of bleeding SKIN: Pressure ulcer prevention per facility protocol Specialty mattress as needed ORTHO/REHAB Continue PT/OT PRN: MEDICATIONS Tylenol 650 mg po every 4 hrs for fever zofran 4 mg IV every 6 hrs for n/v Hydralazine 5 mg IV every 4 hrs systolic pressure > 160 bowel regiment: lactulose 20 gm PO BID PRN constipation Supportive measures: Continue GI and DVT prophylaxis Disposition: Pending evaluation by CT surgery for consideration of CABG. All questions answered time spent: > 35 min BURKE SULLIVAN MD Dec 29, 2024 14:35
[2024-12-29] MEDS: CALCIUM GLUC 1GM 1 GM in 0.9%NACL 50ML 50 ML IV PRN (15:15)
--- NOTE | 2024-12-29 21:14 | CONS ---
[facility] CONSULTATION NOTE Date Patient Seen: Dec 29, 2024 Time of Visit: 21:09 Supervising Physician: [ ] Reason for Consultation: [facility] Primary Care Physician: [ ] Outpatient Specialists: [ ] Inpatient Consults: [ ] PROBLEM LIST: 1. Non-STEMI. 2. Multi-vessel coronary artery disease status post CABG 12/28/2024 3. Mild ischemic cardiomyopathy with LVEF 45-50 by left heart catheterization. 4. Hypertension. 5. Anemia. HPI: 54-year-old male who presented to [facility] with a non-STEMI. He underwent left heart catheterization which showed severe multi-vessel coronary artery disease with mid to apical inferior hypokinesis, LVEF 45-50%. He underwent echocardiogram 12/19/2024 which showed an ejection fraction of 55-60%, mild LVH, normal-sized left atrium, mild mitral valve regurgitation and mild tricuspid valve regurgitation. He was [place] [facility] Patient adm itted to the cardiac care unit, status post CABG, successfully extubated overnight, he is awake alert and following commands. Currently on nasal cannula at 3 L. patient remains on lidocaine, nitro, epi and levo drips. Intra-aortic balloon pump at one-to-one. PAST MEDICAL HX: see above PAST SURGICAL HX: noncontributory SOCIAL HISTORY: No tobacco, ETOH, or illicit drug use Coded Allergies: No Known Drug Intolerances (Unverified Allergy, Unknown, 12/24/24) REVIEW OF SYSTEMS: 12 point ROS reviewed with patient. Pertinent positives mentioned above. Otherwise negative. PHYSICAL EXAM: GENERAL: alert, weak, awake oriented x 3 HEENT: EOMI, Sclera non icteric, moist mucosa NECK: Supple, no JVD, trachea midline LUNGS: Chest tubes in place, HEART: Regular rate and rhythm. Normal S1 and S2, without murmurs ABD: Abdomen soft, nontender. Bowel sounds present EXT: No clubbing cyanosis or edema NEURO: Alert and oriented to person, follows commands Vital Signs (last 8hr) Date Time Temp Pulse Resp B/P (MAP) Pulse Ox O2 Delivery O2 Flow Rate FiO2 12/29/24 21:00 94 13 150/61 (90) 96 36 125/78 (94) 12/29/24 20:45 96 12 154/68 (96) 94 12/29/24 20:30 89 31 120/66 (84) 96 12/29/24 20:15 86 29 119/72 (88) 95 12/29/24 20:05 96 Nasal Cannula* 4 36 12/29/24 20:00 98.1 12/29/24 20:00 92 13 114/61 (78) 96 32 114/63 (80) 12/29/24 19:45 95 25 120/64 (82) 97 12/29/24 19:31 95 28 124/63 (83) 96 12/29/24 19:15 100 20 145/60 (88) 96 12/29/24 19:00 99 26 109/54 (72) 95 32 102/61 (75) 12/29/24 18:45 99 18 125/65 (85) 97 12/29/24 18:30 98 12 122/56 (78) 97 12/29/24 18:15 99 48 112/55 (74) 94 12/29/24 18:00 99 20 112/55 (74) 96 12/29/24 17:45 100 25 129/56 (80) 99 123/70 (87) 12/29/24 17:30 95 24 127/56 (79) 98 12/29/24 17:15 102 23 131/60 (83) 96 12/29/24 17:00 102 24 140/67 (91) 94 12/29/24 16:45 101 29 120/54 (76) 95 114/61 (78) 12/29/24 16:30 100 24 126/65 (85) 95 12/29/24 16:15 100 26 140/61 (87) 99 12/29/24 16:00 99 18 143/72 (95) 98 12/29/24 16:00 96 Nasal Cannula* 4 36 12/29/24 15:45 105 15 121/55 (77) 97 123/69 (87) 12/29/24 15:30 102 23 110/55 (73) 97 12/29/24 15:19 116/55 12/29/24 15:15 118 20 139/69 (92) 95 12/29/24 15:00 99 23 111/56 (74) 98 12/29/24 14:56 98.1 12/29/24 14:45 109 20 113/53 (73) 97 100/72 (81) 12/29/24 14:30 106 20 113/55 (74) 94 12/29/24 14:19 131/62 12/29/24 14:15 111 19 143/62 (89) 94 12/29/24 14:00 102 22 153/83 (106) 98 12/29/24 13:45 107 20 133/61 (85) 98 131/62 (85) 12/29/24 13:30 96 21 124/61 (82) 97 12/29/24 13:15 94 20 131/68 (89) 100 LABS: Hematology Labs: Test 12/29/24 12:15 Range/Units White Blood Count 9.5 4.8-10.8 K/uL Red Blood Count 3.51 L 4.50-6.20 MIL/uL Hemoglobin 8.7 L 14.0-18.0 g/dL Hematocrit 26.9 L 42-54 % Mean Corpuscular Volume 76.6 L 79-99 fL Mean Corpuscular Hemoglobin 24.8 L 27.0-33.0 pg Mean Corpuscular Hemoglobin Concent 32.3 32.0-36.0 g/dL Red Cell Distribution Width 20.0 H 11.0-15.5 % Platelet Count 284 130-400 K/uL Mean Platelet Volume 10.0 7.5-10.5 fL Immature Granulocyte % (Auto) 0.5 0-1 % Neutrophils (%) (Auto) 75.2 40.0-77.0 % Lymphocytes (%) (Auto) 16.4 L 21.0-51.0 % Monocytes (%) (Auto) 7.3 3.0-13.0 % Eosinophils (%) (Auto) 0.2 0.0-8.0 % Basophils (%) (Auto) 0.4 0.0-5.0 % Neutrophils # (Auto) 7.1 1.8-7.7 K/uL Lymphocytes # (Auto) 1.6 1.0-4.8 K/uL Monocytes # (Auto) 0.7 0.1-1.0 K/uL Eosinophils # (Auto) 0.02 0.00-0.70 K/uL Basophils # (Auto) 0.04 0.00-0.20 K/uL Absolute Immature Granulocyte (auto 0.05 0-1 K/uL Nucleated Red Blood Cells 0.4 H 0.0-0.19 % Chemistry Labs: Test 12/29/24 20:22 12/29/24 20:20 12/29/24 12:15 Range/Units Whole Blood Glucose 112 H 70-110 MG/DL Potassium Level 5.6 H 3.5-5.1 mmol/L Ionized Calcium 1.13 L 1.15-1.33 MMOL/L Magnesium Level 1.90 1.80-2.40 mg/dL Sodium Level 150 H 136-145 mmol/L Chloride Level 111 101-111 mmol/L Carbon Dioxide Level 25 21-32 mmol/L Blood Urea Nitrogen 16 7-18 mg/dL Creatinine 1.9 H 0.5-1.3 mg/dL Glomerular Filtration Rate Calc 41 >90 mL/min Random Glucose 137 H 70-105 mg/dL Total Calcium 8.7 8.5-10.1 mg/dL Phosphorus Level 5.3 #H 2.5-4.9 mg/dL Coagulation Labs: Test 12/29/24 04:25 Range/Units Prothrombin Time 11.7 H 9.6-11.6 SEC Prothromb Time International Ratio 1.12 0.85-1.15 Activated Partial Thromboplast Time 26.6 # 26.3-35.5 SEC DIAGNOSTICS / RADIOLOGY RESULTS: [ ] PLAN Follow CT surgeon postop protocol Weaning pressors per protocol Follow I&Os Urine and chest tube output Follow daily chest x-ray, labs, PT/OT when able Neurovascular checks lower extremities NEURO: Minimize central acting medications as possible. Fall Precautions. Well lighted room through the day and minimize interruptions through the night to prevent acute delirium. PULMONARY: Supplemental 02 as needed Titrate Fio2 to keep Spo2 > or = 90% DuoNebs and CPT as needed IS hourly while awake for pulmonary hygiene Out of bed to chair as tolerated VAP Bundle Vent/BIPAP Settings: [ ] Driving pressure: [ ] P Plat: [ ] Static C: [ ] Static R: [ ] P/F Ratio: [ ] CARDIOVASCULAR: Follow hemodynamics. Titrate vasopressor to keep MAP >65 or systolic blood pressure >95mmHg DIPS: [ ] LINES: [ ] GI & NUTRITION: Continue nutritional support Aspirations precautions Prokinetic agents and laxatives as needed KIDNEYS & ELECTROLYTES: Strict monitoring of intake and output Daily weights Avoid nephrotoxic agents Monitor electrolytes and replace as needed Goal urine output of 30mL/hr or 0.5mL/kg/hr Urine output: [ ] Fluid Balance: [ ] ENDOCRINE: Maintain blood glucose between 100-180 at all times. Insulin sliding scale for blood glucose management INFECTIOUS DISEASE: Trend temperature. Quiñones-culture if febrile. Micro: [ ] Antibiotics: [ ] HEMATOLOGY & COAGULATION: Monitor H&H. Keep Hgb > 7 Transfuse 1 unit of PRBC for Hgb < 7 Transfuse 1 pack of platelets of platelets < 20, 000 Watch for any signs and symptoms of bleeding SKIN: Pressure ulcer prevention per facility protocol Rehab: PT/OT Prophylaxis: GI: [ ] DVT: [ ] Code Status: Full Resuscitation Disposition: [ ] Other: Total patient Critical Care time 58 minutes, time excluded any procedures. Case was discussed and seen with my supervising physician. The above plan was formulated and agreed upon. CHEYENNE HENSON Dec 29, 2024 21:14
[2024-12-30] VITALS (106 sets, daily range): BP systolic 83–247; BP diastolic 42–120; PULSE 79–116; RESP 11–31; TEMP 97.9–99.1; O2SAT 90–100
[2024-12-30 05:17] LABS: NUCLEATED RED BLOOD CELLS 0.9 % (0.0-0.19); PLATELET COUNT (AUTO) 215.0 K/uL (130-400); RED BLOOD CELL COUNT(AUTO) 3.52 MIL/uL (4.50-6.20); RED CELL DISTRIBUTION WIDTH 21.1 % (11.0-15.5); WHITE BLOOD COUNT (AUTO) 9.3 K/uL (4.8-10.8)
[2024-12-30 05:34] LABS: CREATININE 3.0 mg/dL (0.5-1.3); GLOMERULAR FILTR. RATE CALC 24.0 mL/min (>90); GLUCOSE,RANDOM 120.0 mg/dL (70-105); PHOSPHORUS 5.6 mg/dL (2.5-4.9); SODIUM SERUM 142.0 mmol/L (136-145); UREA NITROGEN, BLOOD 22.0 mg/dL (7-18)
[2024-12-30 07:34] LABS: ABG BASE EXCESS -0.8 mmol/L (-2.0-3.0); ABG HCO3 22.8 mmol/L (21.0-28.0); ABG OXYGEN SATURATION 90.1 % (94.0-98.0); ABG PCO2 34 mmHg (35-48); ABG PH 7.451 (7.350-7.450); CARBON MONOXIDE 0.3 % (0.5-1.5); DEVICE COMMENT RN EDDIE; PO2, ARTERIAL BG 62.3 mmHg (83.0-108.0); TEMPERATURE, CELSIUS BG 37.0 CELSIUS (35.5-37.0); VENT MODE, BG NC (ROOM AIR)
--- NOTE | 2024-12-30 08:54 | HMCIMG ---
EXAM: CR Abdomen, 2 View. CLINICAL HISTORY: Distention COMPARISON: None provided. FINDINGS: BOWEL: The bowel gas pattern is within normal limits. PERITONEUM/SOFT TISSUES: No free air evident. No pathologic appearing calcification. BONES: No aggressive appearing osseous lesion seen. IMPRESSION: The bowel gas pattern is within normal limits. /[place]
[2024-12-30 08:55] LABS: TOTAL PROTEIN, SERUM 5.1 g/dL (6.0-8.3)
[2024-12-30 09:13] LABS: ASPARTATE AMINOTRANSFERASE 776.0 U/L (10-37)
[2024-12-30] MEDS: MAGNESIUM HYDROXIDE 30 ML/UDCUP PO PRN (10:18)
--- NOTE | 2024-12-30 10:27 | HMCIMG ---
CHEST 1VW REASON: s/p CABG COMPARISON: Prior chest radiograph from 12/29/2024 is available. FINDINGS: The study demonstrate the cardiac silhouette is within limits of normal with median sternotomy with cardiac revascularization procedure. There is diffuse mild interstitial pulmonary edema which was not seen on the prior radiograph. The support lines including the right internal jugular vascular sheath left-sided chest view are in satisfactory position. The bony thorax demonstrate no gross abnormality. IMPRESSION: 1. Status post median sternotomy with cardiac revascularization procedure 2. Mild interstitial pulmonary edema 3. Support lines are in satisfactory position.
[2024-12-30] MEDS: DEXTROSE 50%-WATER 50 ML DISP.SYRIN IV ONE (10:34)
[2024-12-30] MEDS: ALBUTEROL 0.083% 2.5 MG/3 ML INH IH STA (10:43)
[2024-12-30] MEDS: ALBUTEROL 0.083% 2.5 MG/3 ML INH IH ONE (10:43)
[2024-12-30] MEDS: CALCIUM GLUC 1GM/10ML VIAL IV ONE (10:56)
--- NOTE | 2024-12-30 11:13 | PN ---
[facility] PROGRESS NOTE Date Patient Seen: Dec 30, 2024 Time of Visit: 11:09 Supervising Physician: Dr Jaramillo Primary Care Physician: [ ] Outpatient Specialists: [ ] Inpatient Consults: [ ] PROBLEM LIST: Non-STEMI. Multi-vessel coronary artery disease status post CABG 12/28/2024 Mild ischemic cardiomyopathy with LVEF 45-50 by left heart catheterization. Hypertension. Anemia. ERICK with hyperkalemia INTERVAL HISTORY: Patient seen and examined, all labs imaging EKGs reviewed, patient remains confused, sitter at bedside. Patient remains on one-to-one because of the balloon pump currently at one-to-one Remains on epi, levo and dobutamine. Precedex. Off lidocaine and nitro. Patient is awake alert we will follow commands but does require sitter to protect the balloon site insertion Good sats on 2 L nasal cannula Chest tube 250/12 Urine output 600/12 Chest x-ray improving Developing ERICK with hyperkalemia. Creatinine went up. Potassium more than six. Plan: Patient's potassium is 6.0, potassium protocol initiated we will follow post protocol labs Follow CT surgeon recs I&Os, chest tube, urine output Balloon pump precautions, neurovascular checks PT/OT when ready Weaning pressors per CT surgeon REVIEW OF SYSTEMS: 12 point ROS reviewed with patient. Pertinent positives mentioned above. Otherwise negative. PHYSICAL EXAM: GENERAL: alert, weak, awake oriented x 3 HEENT: EOMI, Sclera non icteric, moist mucosa NECK: Supple, no JVD, trachea midline LUNGS: Chest tubes in place, HEART: Regular rate and rhythm. Normal S1 and S2, without murmurs ABD: Abdomen soft, nontender. Bowel sounds present EXT: No clubbing cyanosis or edema NEURO: Alert and oriented to person, follows commands Vital Signs (last 8hr) Date Time Temp Pulse Resp B/P (MAP) Pulse Ox O2 Delivery O2 Flow Rate FiO2 12/30/24 10:54 100 19 12/30/24 09:45 98 27 93/47 (62) 93 111/75 (87) 12/30/24 09:30 90 27 100/51 (67) 95 12/30/24 09:15 94 20 90/43 (59) 95 12/30/24 09:00 95 20 101/46 (64) 95 12/30/24 08:45 92 29 99/47 (64) 95 91/50 (64) 12/30/24 08:30 94 11 116/58 (77) 96 89/51 (64) 12/30/24 08:15 85 25 99/57 (71) 96 12/30/24 08:00 96 20 131/64 (86) 92 12/30/24 07:45 92 16 89/55 (66) 100 12/30/24 07:30 99 20 98/53 (68) 92 12/30/24 07:30 98.6 Nasal Cannula 4.0 12/30/24 07:15 116 23 91/46 (61) 92 12/30/24 07:00 105 24 108/56 (73) 92 117/50 (72) 12/30/24 07:00 90 18 N/Cannula Low lpm 4.0 36 12/30/24 06:45 90 24 137/61 (86) 94 12/30/24 06:30 91 17 117/63 (81) 92 36 12/30/24 06:15 90 21 87/42 (57) 93 90/51 (64) 12/30/24 06:00 90 12 105/57 (73) 92 104/52 (69) 12/30/24 05:45 90 22 113/56 (75) 92 12/30/24 05:30 85 22 114/57 (76) 92 12/30/24 05:15 91 25 95/54 (68) 93 12/30/24 05:00 86 14 126/57 (80) 93 36 106/66 (79) 12/30/24 04:45 86 20 110/55 (73) 92 12/30/24 04:30 86 18 106/57 (73) 92 12/30/24 04:15 88 22 114/55 (74) 96 12/30/24 04:01 98.4 12/30/24 04:00 92 Nasal Cannula* 4 36 12/30/24 04:00 82 29 105/54 (71) 92 36 99/48 (65) 12/30/24 03:45 83 28 119/59 (79) 91 12/30/24 03:30 88 22 98/51 (67) 97 12/30/24 03:15 87 12 110/55 (73) 93 LABS: Hematology Labs: Test 12/30/24 04:41 12/29/24 12:15 Range/Units White Blood Count 9.3 4.8-10.8 K/uL Red Blood Count 3.52 L 4.50-6.20 MIL/uL Hemoglobin 8.6 L 14.0-18.0 g/dL Hematocrit 27.3 L 42-54 % Mean Corpuscular Volume 77.6 L 79-99 fL Mean Corpuscular Hemoglobin 24.4 L 27.0-33.0 pg Mean Corpuscular Hemoglobin Concent 31.5 L 32.0-36.0 g/dL Red Cell Distribution Width 21.1 H 11.0-15.5 % Platelet Count 215 130-400 K/uL Mean Platelet Volume 10.6 H 7.5-10.5 fL Nucleated Red Blood Cells 0.9 H 0.0-0.19 % Immature Granulocyte % (Auto) 0.5 0-1 % Neutrophils (%) (Auto) 75.2 40.0-77.0 % Lymphocytes (%) (Auto) 16.4 L 21.0-51.0 % Monocytes (%) (Auto) 7.3 3.0-13.0 % Eosinophils (%) (Auto) 0.2 0.0-8.0 % Basophils (%) (Auto) 0.4 0.0-5.0 % Neutrophils # (Auto) 7.1 1.8-7.7 K/uL Lymphocytes # (Auto) 1.6 1.0-4.8 K/uL Monocytes # (Auto) 0.7 0.1-1.0 K/uL Eosinophils # (Auto) 0.02 0.00-0.70 K/uL Basophils # (Auto) 0.04 0.00-0.20 K/uL Absolute Immature Granulocyte (auto 0.05 0-1 K/uL Chemistry Labs: Test 12/30/24 09:31 12/30/24 04:45 12/30/24 04:41 12/29/24 20:20 Range/Units Potassium Level 6.4 *H 3.5-5.1 mmol/L Magnesium Level 1.90 1.80-2.40 mg/dL Ammonia < 10 L 11-32 umol/L Whole Blood Glucose 119 H 70-110 MG/DL Sodium Level 142 136-145 mmol/L Chloride Level 108 101-111 mmol/L Carbon Dioxide Level 28 21-32 mmol/L Blood Urea Nitrogen 22 H 7-18 mg/dL Creatinine 3.0 H 0.5-1.3 mg/dL Glomerular Filtration Rate Calc 24 >90 mL/min Random Glucose 120 H 70-105 mg/dL Total Calcium 9.3 8.5-10.1 mg/dL Phosphorus Level 5.6 H 2.5-4.9 mg/dL Total Bilirubin 0.5 0.2-1.0 mg/dL Direct Bilirubin 0.2 0.0-0.3 mg/dL Aspartate Amino Transf (AST/SGOT) 776 *H 10-37 U/L Alanine Aminotransferase (ALT/SGPT) 212 H 12-78 U/L Alkaline Phosphatase 52 50-136 U/L Total Protein 5.1 L 6.0-8.3 g/dL Albumin 2.0 L 3.5-5.0 g/dL Ionized Calcium 1.13 L 1.15-1.33 MMOL/L Coagulation Labs: Test 12/29/24 04:25 Range/Units Prothrombin Time 11.7 H 9.6-11.6 SEC Prothromb Time International Ratio 1.12 0.85-1.15 Activated Partial Thromboplast Time 26.6 # 26.3-35.5 SEC DIAGNOSTICS / RADIOLOGY RESULTS: [ ] PLAN NEURO: Minimize central acting medications as possible. Fall Precautions. Well lighted room through the day and minimize interruptions through the night to prevent acute delirium. PULMONARY: Supplemental 02 as needed Titrate Fio2 to keep Spo2 > or = 90% DuoNebs and CPT as needed IS hourly while awake for pulmonary hygiene Out of bed to chair as tolerated VAP Bundle Vent/BIPAP Settings: [ ] Driving pressure: [ ] P Plat: [ ] Static C: [ ] Static R: [ ] P/F Ratio: [ ] CARDIOVASCULAR: Follow hemodynamics. Titrate vasopressor to keep MAP >65 or systolic blood pressure >95mmHg DIPS: [ ] LINES: [ ] GI & NUTRITION: Continue nutritional support Aspirations precautions Prokinetic agents and laxatives as needed KIDNEYS & ELECTROLYTES: Strict monitoring of intake and output Daily weights Avoid nephrotoxic agents Monitor electrolytes and replace as needed Goal urine output of 30mL/hr or 0.5mL/kg/hr Urine output: [ ] Fluid Balance: [ ] ENDOCRINE: Maintain blood glucose between 100-180 at all times. Insulin sliding scale for blood glucose management INFECTIOUS DISEASE: Trend temperature. Quiñones-culture if febrile. Micro: [ ] Antibiotics: [ ] HEMATOLOGY & COAGULATION: Monitor H&H. Keep Hgb > 7 Transfuse 1 unit of PRBC for Hgb < 7 Transfuse 1 pack of platelets of platelets < 20, 000 Watch for any signs and symptoms of bleeding SKIN: Pressure ulcer prevention per facility protocol Rehab: PT/OT Prophylaxis: GI: [ ] DVT: [ ] Code Status: Full Resuscitation Disposition: [ ] Other: Total patient Critical Care time 51 minutes, time excluded any procedures. Case was discussed and seen with my supervising physician. The above plan was formulated and agreed upon. CHEYENNE HENSON Dec 30, 2024 11:13 TARA MEEHAN MD Dec 31, 2024 07:00
--- NOTE | 2024-12-30 11:24 | NUR ---
Dr. Ames made aware of abnormal potassium level, orders given and carried out.
[2024-12-30 11:26] LABS: ABG BASE EXCESS -1.4 mmol/L (-2.0-3.0); ABG HCO3 22.7 mmol/L (21.0-28.0); ABG OXYGEN SATURATION 86.8 % (94.0-98.0); ABG PCO2 36 mmHg (35-48); ABG PH 7.422 (7.350-7.450); CARBON MONOXIDE 0.3 % (0.5-1.5); DEVICE COMMENT RN EDDIE; PO2, ARTERIAL BG 56.7 mmHg (83.0-108.0); TEMPERATURE, CELSIUS BG 37.0 CELSIUS (35.5-37.0); VENT MODE, BG NC (ROOM AIR)
[2024-12-30] MEDS: DEXTROSE 5 %-0.45 % NACL 1,000 ML IV SCH (11:38)
[2024-12-30] MEDS: DEXTROSE 50%-WATER 50 ML DISP.SYRIN IV STA (11:45)
--- NOTE | 2024-12-30 12:28 | HMCIMG ---
EXAM: CR Chest, 1 View. CLINICAL HISTORY: IABP POSITION COMPARISON: Radiograph dated December 30, 2024 at 5:03 AM Findings: AP view of the chest is submitted. Right IJ central venous catheter tip projects over the SVC. Enteric tube terminates within the stomach. Left chest tube is unchanged in position. Relatively unchanged mild multifocal airspace disease, predominantly at the left lung base. No pleural effusion or pneumothorax. Heart size is stable. Mild central pulmonary vascular congestion. IMPRESSION: 1. Stable mild multifocal airspace disease, predominantly at the left lung base. 2. Mild central pulmonary vascular congestion. 3. Left chest tube, right IJ central venous catheter, and enteric tube in appropriate positions. /[place]
[2024-12-30 12:39] LABS: ABG BASE EXCESS -3.9 mmol/L (-2.0-3.0); ABG HCO3 20.8 mmol/L (21.0-28.0); ABG OXYGEN SATURATION 98.6 % (94.0-98.0); ABG PCO2 36 mmHg (35-48); ABG PH 7.378 (7.350-7.450); CARBON MONOXIDE 0.1 % (0.5-1.5); DEVICE COMMENT RN EDDIE; PO2, ARTERIAL BG 169.7 mmHg (83.0-108.0); TEMPERATURE, CELSIUS BG 37.0 CELSIUS (35.5-37.0); VENT MODE, BG BIPAP 12,6 (ROOM AIR)
--- NOTE | 2024-12-30 13:00 | NUR ---
IABP advanced by Dr. Washington at bedside and placement verified via CXR.
--- NOTE | 2024-12-30 13:38 | HMCIMG ---
EXAM: CR Chest, 1 View. CLINICAL HISTORY: IABP COMPARISON: Radiograph dated December 30, 2024 at 1121 FINDINGS: Enteric tube terminates within the stomach. Right IJ central venous catheter tip projects over the SVC. Left chest tube remains in satisfactory position. Relatively unchanged mild multifocal airspace disease, more pronounced at the left lung base. No pleural effusion or pneumothorax. Heart size is stable. Mild central pulmonary vascular congestion. IMPRESSION: 1. Mild multifocal airspace disease, more pronounced at left lung base, with mild central pulmonary vascular congestion. 2. Appropriately positioned lines and tubes, including right IJ central line with tip in SVC. /[place]
[2024-12-30 13:40] LABS: ABG BASE EXCESS -0.5 mmol/L (-2.0-3.0); ABG HCO3 24.4 mmol/L (21.0-28.0); ABG OXYGEN SATURATION 98.0 % (94.0-98.0); ABG PCO2 41 mmHg (35-48); ABG PH 7.396 (7.350-7.450); CARBON MONOXIDE 0.3 % (0.5-1.5); DEVICE COMMENT RN ARACELY; PO2, ARTERIAL BG 135.0 mmHg (83.0-108.0); TEMPERATURE, CELSIUS BG 37.0 CELSIUS (35.5-37.0); VENT MODE, BG BIPAP 12,6 (ROOM AIR)
--- NOTE | 2024-12-30 14:11 | NUR ---
[facility] ICU Skin Assessment: Patient assessed by wound healing team. Patient with no wounds or skin breakdown noted. Assessment and recommendations provided to primary nurse. Education provided. Addendum: 12/30/24 at 1411 by ANNIE FINN RN RN/ Amended: Links added.
[2024-12-30 14:47] LABS: ABG BASE EXCESS -0.3 mmol/L (-2.0-3.0); ABG HCO3 23.6 mmol/L (21.0-28.0); ABG OXYGEN SATURATION 89.0 % (94.0-98.0); ABG PCO2 36 mmHg (35-48); ABG PH 7.439 (7.350-7.450); CARBON MONOXIDE 0 % (0.5-1.5); DEVICE COMMENT RN EDDIE; PO2, ARTERIAL BG 61.1 mmHg (83.0-108.0); TEMPERATURE, CELSIUS BG 37.0 CELSIUS (35.5-37.0); VENT MODE, BG NC (ROOM AIR)
--- NOTE | 2024-12-30 14:55 | PN ---
[facility] PROGRESS NOTE Date of Service: Dec 30, 2024 Time of Service: 14:54 SUBJECTIVE: This is a 54-year-old male who presented to [facility] with a non-STEMI. He underwent left heart catheterization which showed severe multi-vessel coronary artery disease with mid to apical inferior hypokinesis, LVEF 45-50%. He underwent echocardiogram 12/19/2024 which showed an ejection fraction of 55- 60%, mild LVH, normal-sized left atrium, mild mitral valve regurgitation and mild tricuspid valve regurgitation. He was transferred to [facility] for CABG. 12/25 patient remains admitted to the PCU, case discussed with the RN, no acute events overnight, he denied chest pain, shortness shortness for breath, no nausea, no vomiting, no abdominal discomfort. Cardiology input noted and appreciated, patient to continue aspirin 81 mg p.o. daily and atorvastatin 40 mg p.o. daily. Continue metoprolol tartrate 25 mg p.o. b.i.d.. Pending evaluation by CT surgery for consideration for CABG. Discussed with the patient. 12/26 patient remains admitted to the PCU, case discussed with the RN, no acute events overnight, the time of my visit the patient is comfortably in bed, alert oriented x3, eating breakfast, tolerating well, denies nausea, no vomiting, no abdominal discomfort, he denies chest pain, no shortness a breath. Remains on aspirin 81 mg p.o. daily, atorvastatin and metoprolol 25 mg p.o. b.i.d.. Pending evaluation by CT surgery for consideration of CABG. 12/27 patient is seen and examined at bedside, case discussed with the RN, no acute events overnight, currently the patient NPO, scheduled for CABG today by Cardiothoracic surgeon. We will continue to follow. 12/28 patient is seen and examined at bedside, case discussed with the RN, no acute events overnight, currently the patient NPO, scheduled for CABG today by Cardiothoracic surgeon. We will continue to follow. 12/29 patient is seen and examined at bedside, remains admitted to the ICU, postoperative day 1., status post CABG 12/28/2024, patient on insulin drip, nitroglycerin drip, alert oriented x3 following commands, however was mildly agitated earlier this morning, motion with the RN started on Precedex. Patient with chest tube in place. Further recommendations per Cardiothoracic surgeon. 12/30 patient remains admitted to the ICU, case discussed with the RN, patient remains confused, trying to pull his IV lines, remains on Precedex. Throughout the balloon pump in place, just to be breath, remains on epinephrine, Levophed, Lasix drip, dobutamine drip. Creatinine today at 3.0. Nephrology consultation requested, we will follow input and recommendation. Continue to monitor liver enzymes in a.m., follow ammonia level (at the time of my dictation less than 10). Continue to follow critical care input and recommendation. Prognosis remains guarded. REVIEW OF SYSTEMS CONSTITUTIONAL: Denies fevers, chills, or night sweats. No unintentional weight loss reported. NEUROLOGICAL: Denies headache, amaurosis fugax, motor weakness, sensory deficit, vertigo/spinning sensation, gait abnormalities, or tremors. ENT: No hearing loss, otalgia, otorrhea, rhinitis, rhinorrhea, hoarseness, or sore throat. CARDIOVASCULAR: Denies any exertional angina, dyspnea on exertion, orthopnea, paroxysmal nocturnal dyspnea, palpitations, life-threatening arrhythmias, claudication. PULMONARY: Denies any shortness of breath, cough, phlegm/sputum, hemoptysis, pleuritic chest pain. SLEEP: Denies morning headaches, daytime somnolence or napping. Denies difficulty falling asleep, staying asleep, waking from sleep. Denies knowledge of snoring. GASTROINTESTINAL: Denies any type of dysphagia to either liquids or solids. Denies nausea, vomiting, pyrosis, early satiety, abdominal pain, diarrhea, constipation, or changes in stool consistency or caliber. Denies coffee-ground emesis, hematemesis, hematochezia, or melanotic stools. GENITOURINARY: Denies frequency, urgency, nocturia, hematuria or incontinence (Storage/Irritative symptoms.) Low urinary stream, straining to void, urinary intermittency or hesitancy, splitting of the voiding stream, terminal dribbling. ENDOCRINOLOGIC: Denies polyuria, polydipsia, polyphagia or heat/cold intolerances. HEMATOLOGIC: Denies thrombophilia/previous clots, or coagulopathy/bleeding disorders. ONCOLOGIC: Denies personal history of malignancy. DERMATOLOGIC: Denies rashes or pruritus. PSYCHIATRIC: Denies any suicidal or homicidal ideation. Denies hallucinations. PHYSICAL EXAM GENERAL APPEARANCE: Patient is confused, trying to pull his IV lines, on Precedex. NEUROLOGICAL: Cranial nerves II-XII grossly intact. Motor is 5/5 in bilateral upper and lower extremities proximal to distal. No sensory deficits. HEENT: Face is symmetric. Pupils are equal and reactive. Extraocular movements are intact. NECK: Supple. No JVD. No thyromegaly. No submental, submandibular, pre- /postauricular, occipital or supraclavicular lymphadenopathy. CHEST: Normal chest expansion. No Telemetry. LUNGS: Absence of any rales, rhonchi or any wheezing. Chest tube in place. CARDIOVASCULAR: Regular. S1 and S2 normal. No appreciable rubs, murmurs or gallops. ABDOMEN: Soft, nontender, and nondistended. There is no rebound, voluntary guarding, or rigidity. : Deferred. No Andres. EXTREMITIES: Non-edematous and not cyanotic. No clubbing. Good capillary refill. SKIN: No skin breakdown. Vital Signs (last 8hr) Date Time Temp Pulse Resp B/P (MAP) Pulse Ox O2 Delivery O2 Flow Rate FiO2 12/30/24 14:15 94 11 133/60 (84) 91 109/48 (68) 12/30/24 14:00 95 18 140/58 (85) 92 12/30/24 13:45 92 18 161/66 (97) 99 12/30/24 13:30 97 20 149/47 (81) 98 12/30/24 13:15 91 21 176/71 (106) 100 12/30/24 13:00 94 15 180/72 (108) 100 12/30/24 12:45 95 21 139/72 (94) 100 153/60 (91) 12/30/24 12:34 173/75 12/30/24 12:30 103 24 149/91 (110) 100 12/30/24 12:15 100 25 153/77 (102) 100 121/75 (90) 12/30/24 12:00 99.1 BIPAP 100 12/30/24 12:00 91 Bi-PAP+ 100 12/30/24 12:00 101 26 122/61 (81) 100 12/30/24 11:50 98 24 100 12/30/24 11:45 101 24 168/76 (106) 100 100 12/30/24 11:30 105 21 100/54 (69) 92 12/30/24 11:15 102 25 183/68 (106) 92 12/30/24 11:00 102 19 141/55 (83) 96 12/30/24 10:54 100 19 12/30/24 10:45 99 21 149/66 (93) 93 12/30/24 10:30 100 17 125/59 (81) 93 12/30/24 10:15 95 24 96/44 (61) 93 12/30/24 10:00 93 31 92/52 (65) 93 12/30/24 09:45 98 27 93/47 (62) 93 111/75 (87) 12/30/24 09:30 90 27 100/51 (67) 95 12/30/24 09:15 94 20 90/43 (59) 95 12/30/24 09:00 95 20 101/46 (64) 95 12/30/24 08:45 92 29 99/47 (64) 95 91/50 (64) 12/30/24 08:30 94 11 116/58 (77) 96 89/51 (64) 12/30/24 08:15 85 25 99/57 (71) 96 12/30/24 08:00 91 Nasal Cannula* 4 36 12/30/24 08:00 96 20 131/64 (86) 92 12/30/24 07:45 92 16 89/55 (66) 100 12/30/24 07:30 99 20 98/53 (68) 92 12/30/24 07:30 98.6 Nasal Cannula 4.0 12/30/24 07:15 116 23 91/46 (61) 92 12/30/24 07:00 105 24 108/56 (73) 92 117/50 (72) 12/30/24 07:00 90 18 N/Cannula Low lpm 4.0 36 LABS: Laboratory: Test 12/30/24 14:46 12/30/24 13:39 12/30/24 09:31 12/30/24 04:45 Range/Units Blood Gas Specimen Type Arterial Arterial Blood pH 7.439 7.350-7.450 Arterial Blood Partial Pressure CO2 36 35-48 mmHg Arterial Blood Partial Pressure O2 61.1 L 83.0-108.0 mmHg Arterial Blood HCO3 23.6 21.0-28.0 mmol/L Arterial Blood Oxygen Saturation 89.0 L 94.0-98.0 % Arterial Blood Base Excess -0.3 -2.0-3.0 mmol/L Hemoglobin (Blood Gas) 9.1 L 13.5-17.5 g/dL Sodium (Blood Gas) 142 136-145 MMOL/L Bedside Potassium (Blood Gas) 4.6 H 3.4-4.5 MMOL/L Bedside Chloride (Blood Gas) 107 98-107 MMOL/L Bedside Glucose (Blood Gas) 92 65-95 MG/DL Bedside Ionized Calcium (Blood Gas) 1.35 H 1.15-1.33 MMOL/L Bedside Lactic Acid (Blood Gas) 5.38 *H 0.36-0.75 MMOL/L Blood Gas Temperature 37.0 35.5-37.0 CELSIUS Blood Gas Flow-by 4.00 0.00-15.00 L/min Blood Gas Vent Mode NC ROOM AIR FiO2 36.0 % Blood Gas Specimen Comment RN ALYCE Blood Gas Respiration Rate 18.0 min. Potassium Level 6.4 *H 3.5-5.1 mmol/L Magnesium Level 1.90 1.80-2.40 mg/dL Ammonia < 10 L 11-32 umol/L Whole Blood Glucose 119 H 70-110 MG/DL Test 12/30/24 04:41 12/29/24 20:20 12/29/24 12:15 12/29/24 04:25 Range/Units White Blood Count 9.3 4.8-10.8 K/uL Red Blood Count 3.52 L 4.50-6.20 MIL/uL Hemoglobin 8.6 L 14.0-18.0 g/dL Hematocrit 27.3 L 42-54 % Mean Corpuscular Volume 77.6 L 79-99 fL Mean Corpuscular Hemoglobin 24.4 L 27.0-33.0 pg Mean Corpuscular Hemoglobin Concent 31.5 L 32.0-36.0 g/dL Red Cell Distribution Width 21.1 H 11.0-15.5 % Platelet Count 215 130-400 K/uL Mean Platelet Volume 10.6 H 7.5-10.5 fL Nucleated Red Blood Cells 0.9 H 0.0-0.19 % Sodium Level 142 136-145 mmol/L Chloride Level 108 101-111 mmol/L Carbon Dioxide Level 28 21-32 mmol/L Blood Urea Nitrogen 22 H 7-18 mg/dL Creatinine 3.0 H 0.5-1.3 mg/dL Glomerular Filtration Rate Calc 24 >90 mL/min Random Glucose 120 H 70-105 mg/dL Total Calcium 9.3 8.5-10.1 mg/dL Phosphorus Level 5.6 H 2.5-4.9 mg/dL Total Bilirubin 0.5 0.2-1.0 mg/dL Direct Bilirubin 0.2 0.0-0.3 mg/dL Aspartate Amino Transf (AST/SGOT) 776 *H 10-37 U/L Alanine Aminotransferase (ALT/SGPT) 212 H 12-78 U/L Alkaline Phosphatase 52 50-136 U/L Total Protein 5.1 L 6.0-8.3 g/dL Albumin 2.0 L 3.5-5.0 g/dL Ionized Calcium 1.13 L 1.15-1.33 MMOL/L Immature Granulocyte % (Auto) 0.5 0-1 % Neutrophils (%) (Auto) 75.2 40.0-77.0 % Lymphocytes (%) (Auto) 16.4 L 21.0-51.0 % Monocytes (%) (Auto) 7.3 3.0-13.0 % Eosinophils (%) (Auto) 0.2 0.0-8.0 % Basophils (%) (Auto) 0.4 0.0-5.0 % Neutrophils # (Auto) 7.1 1.8-7.7 K/uL Lymphocytes # (Auto) 1.6 1.0-4.8 K/uL Monocytes # (Auto) 0.7 0.1-1.0 K/uL Eosinophils # (Auto) 0.02 0.00-0.70 K/uL Basophils # (Auto) 0.04 0.00-0.20 K/uL Absolute Immature Granulocyte (auto 0.05 0-1 K/uL Prothrombin Time 11.7 H 9.6-11.6 SEC Prothromb Time International Ratio 1.12 0.85-1.15 Activated Partial Thromboplast Time 26.6 # 26.3-35.5 SEC Test 12/28/24 23:55 Range/Units Blood Gas Tidal Volume 600 ml Blood Gas PEEP 5 cm H2O Current Medications Medications (Trade) Dose Ordered Sig/Mila Route PRN Reason Start Time Stop Time Status Last Admin Dose Admin Acetaminophen (TYLenol 325MG TAB) 650 mg Q4H PRN PO Temp >38.3C(AFTER EXTUBATION) 12/28/24 14:00 01/27/25 13:59 Acetaminophen (TYLenol 325MG TAB) 650 mg Q6H PRN PO MILD PAIN (1-3) 12/24/24 01:30 12/28/24 13:57 DC 12/27/24 23:45 650 MG Acetaminophen (TYLenol 325MG TAB) 650 mg Q6H PRN PO TEMPERATURE GREATER THAN 101.5 12/24/24 03:00 12/28/24 14:10 DC Acetaminophen (TYLenol 325MG TAB) 650 mg Q6H PRN PO MILD PAIN (1-3) 12/28/24 14:00 01/27/25 13:59 12/30/24 07:51 650 MG Acetaminophen (TYLenol 650MG SUPPOSITORY) 650 mg Q4H PRN RC Temp >38.3C WHILE INTUBATED 12/28/24 14:00 01/27/25 13:59 Acetaminophen (acetaMINOPHEN) 1,000 mg Q6H6 IV 12/28/24 18:00 12/29/24 17:59 DC 12/29/24 17:27 1,000 MG Acetaminophen (acetaMINOPHEN) 1,000 mg Q6H6 IVPB 12/30/24 00:00 01/29/25 00:00 12/30/24 11:05 1,000 MG Albumin Human 250 ml @ 0 mls/hr AD PRN IV IF HEMODYNAMICALLY UNSTABLE 12/28/24 14:00 12/29/24 09:28 DC 12/29/24 09:28 250 MLS/HR Albuterol Sulfate (Proventil 0.083% 2.5mg/3ml) 2.5 mg ONCE STAT IH 12/30/24 10:22 12/30/24 10:32 DC 12/30/24 10:43 2.5 MG Aminocaproic Acid 61492 mg/Sodium Chloride 310 ml @ 25 mls/hr AD IV 12/28/24 14:00 12/28/24 14:14 DC Aminocaproic Acid 45895 mg/Sodium Chloride 480 ml @ 0 mls/hr AD PRN IV BLEEDING CONTROL 12/27/24 11:00 01/26/25 10:59 Aspirin (Aspirin 81mg Ec Tab) 81 mg DAILY PO 12/24/24 09:00 01/23/25 08:59 12/30/24 07:51 81 MG Atorvastatin Calcium (LIPItor 40MG) 40 mg HS PO 12/24/24 21:00 01/23/25 20:59 12/29/24 20:07 40 MG Bisacodyl (DulcoLAX) 10 mg DAILY PRN RC CONSTIPATION - MOM INEFFECTIVE 12/29/24 14:00 01/28/25 13:59 12/30/24 11:05 10 MG Calcium Gluconate 1 gm/Sodium Chloride 60 ml @ 200 mls/hr AD PRN IV HYPOCALCEMIA 12/28/24 14:00 01/27/25 13:59 12/30/24 11:49 200 MLS/HR Cefazolin Sodium (ANCEF 1 gm vial) 2 gm ONCALL IVP 12/26/24 16:30 12/26/24 16:28 DC Cefazolin Sodium (Ancef) 2 gm ONCALL PRN IVP SURGERY 12/26/24 16:30 12/28/24 13:57 DC Cefazolin Sodium (Ancef) 2 gm Q8H IVPB 12/28/24 19:00 12/29/24 11:01 DC 12/29/24 11:04 2 GM Dexmedetomidine/ Sodium Chloride (PRECEdex 400MCG/ 100ML-NS) 400 mcg PROTOCOL IV 12/28/24 14:00 12/29/24 13:59 DC 12/29/24 12:16 400 MCG Dexmedetomidine/ Sodium Chloride (PRECEdex 400MCG/ 100ML-NS) 400 mcg PROTOCOL IV 12/29/24 18:00 01/28/25 17:59 12/30/24 05:50 400 MCG Dextrose (D50w) 50 ml AD PRN IV HYPOGLYCEMIA PROTOCOL 12/28/24 14:00 01/27/25 13:59 Dextrose (D50w) 50 ml ONCE STAT IV 12/30/24 11:36 12/30/24 11:39 DC 12/30/24 11:45 50 ML Dextrose/Sodium Chloride 1,000 ml @ 50 mls/hr Q20H IV 12/30/24 11:30 01/29/25 11:29 12/30/24 11:38 50 MLS/HR Dobutamine HCl/ Dextrose 250 ml @ 0 mls/hr PROTOCOL IV 12/29/24 14:00 01/28/25 13:59 12/29/24 14:19 8.6 MLS/HR Docusate Sodium (COLace 100MG CAP) 100 mg BID PO 12/28/24 21:00 12/29/24 08:01 DC 12/28/24 20:53 100 MG Docusate Sodium (COLace LIQUID 100MG/10ML) 100 mg BID PO 12/29/24 08:00 01/28/25 07:59 12/30/24 07:50 100 MG Enoxaparin Sodium (Lovenox) 30 mg DAILY SQ 12/31/24 09:00 01/30/25 08:59 Epinephrine HCl 10 mg/Sodium Chloride 250 ml @ 0 mls/hr AD PRN IV TITRATE 12/27/24 11:00 01/26/25 10:59 12/30/24 04:29 0 MLS/HR Epinephrine HCl 10 mg/Sodium Chloride 250 ml @ 0 mls/hr AD PRN IV POST-OP CARDIOVASCULAR ORDERS 12/28/24 14:00 12/28/24 14:14 DC Famotidine (Pepcid 20mg Vial) 20 mg BID IV 12/28/24 21:00 01/27/25 20:59 12/30/24 07:51 20 MG Famotidine (Pepcid 20mg Tab) 20 mg DAILY PO 12/24/24 09:00 12/28/24 13:54 DC 12/26/24 10:19 20 MG Furosemide (LASix 20MG TAB) 20 mg Q12H PO 12/30/24 09:00 12/30/24 08:34 DC Furosemide (LASix 20MG VIAL) 20 mg Q12H IV 12/29/24 09:00 12/30/24 08:34 DC 12/29/24 09:20 20 MG Furosemide 100 mg/ Sodium Chloride 100 ml @ 0 mls/hr PROTOCOL IV 12/29/24 14:30 01/28/25 14:29 12/30/24 08:54 10 MLS/HR Glucagon (Glucagon 1mg Kit) 1 mg AD PRN IM HYPOGLYCEMIA PROTOCOL 12/28/24 14:00 01/27/25 13:59 Heparin Sodium (Porcine) (HEParin 5,000 UNIT VIAL) *calculation based on ACTUAL B... AD PRN IV HEPARIN PROTOCOL 12/24/24 02:30 12/28/24 13:54 DC 12/24/24 17:32 5,000 UNIT Heparin Sodium/ Dextrose 250 ml @ 0 mls/hr Q6H IV 12/24/24 02:30 12/28/24 13:54 DC 12/27/24 17:04 11.3 MLS/HR Hydralazine HCl (APRESOLine 20MG INJ) 10 mg Q6H PRN IV For:SBP above 160;DBP above 90 12/24/24 03:00 12/28/24 13:54 DC Insulin Human Regular (humuLIN R 100 UNIT/ML 3ML) 10 unit ONCE STAT IV 12/30/24 11:42 12/30/24 11:45 DC 12/30/24 12:01 10 UNIT Insulin Human Regular (humuLIN R 100 UNIT/ML 3ML) 10 unit ONCE STAT SQ 12/30/24 11:36 12/30/24 11:43 DC Insulin Human Regular 100 unit/ Sodium Chloride 100 ml @ 0 mls/hr AD IV 12/28/24 14:00 12/29/24 17:55 DC 12/28/24 17:09 5 MLS/HR Ipratropium [place] (AtrovENT UD) 0.5 mg [id number] IH 12/30/24 12:00 01/29/25 11:59 Lactulose (Constulose 20gm/ 30ml Udcup) 20 gm BID PRN PO CONSTIPATION 12/24/24 03:00 12/28/24 13:54 DC 12/26/24 21:30 20 GM Lactulose (Constulose 20gm/ 30ml Udcup) 20 gm BID PRN PO CONSTIPATION 12/28/24 14:00 01/27/25 13:59 12/30/24 07:50 20 GM Lidocaine HCl/ Dextrose 250 ml @ 0 mls/hr AD PRN IV TITRATE 12/28/24 22:30 12/29/24 16:00 DC 12/29/24 06:53 15 MLS/HR Magnesium Hydroxide (Milk Of Magnesium 30ml) 30 ml DAILY PRN PO CONSTIPATION 12/28/24 14:00 01/27/25 13:59 12/30/24 10:18 30 ML Magnesium Sulfate 50 ml @ 12.5 mls/hr AD PRN IV MAG LEVEL LESS THAN 2.0 12/28/24 14:00 01/27/25 13:59 12/28/24 18:42 12.5 MLS/HR Magnesium Sulfate 50 ml @ 0 mls/hr PROTOCOL PRN IV MAGNESIUM PROTOCOL 12/26/24 15:00 12/28/24 14:10 DC Metoprolol Tartrate (loprESSOR) 12.5 mg BID PO 12/30/24 09:00 01/29/25 08:59 Metoprolol Tartrate (loprESSOR) 25 mg BID PO 12/25/24 21:00 12/28/24 13:54 DC 12/28/24 09:28 25 MG Morphine Sulfate (morPHINE 2MG SYG) 0.5 mg Q2H PRN IV MODERATE PAIN (4-6) 12/28/24 14:00 12/29/24 13:59 DC Morphine Sulfate (morPHINE 2MG SYG) 1 mg Q2H PRN IV SEVERE PAIN (7-10) 12/28/24 14:00 12/29/24 13:59 DC 12/28/24 17:05 1 MG Morphine Sulfate (morPHINE 2MG SYG) 2 mg Q4H PRN IVP SEVERE PAIN (7-10) 12/24/24 03:00 12/28/24 13:54 DC 12/26/24 02:43 2 MG Nitroglycerin (Nitroglycerin 1gm Oint) 0.5 inch Q8H5 TD 12/24/24 01:30 12/28/24 13:54 DC 12/27/24 12:57 0.5 INCH Nitroglycerin/ Dextrose 0 ml @ 0 mls/hr AD IV 12/28/24 14:00 12/31/24 13:59 Norepinephrine Bitartrate 250 ml @ 0 mls/hr AD PRN IV TITRATE 12/27/24 11:00 01/26/25 10:59 12/30/24 12:34 3.8 MLS/HR Norepinephrine Bitartrate 8 mg/ Dextrose 250 ml @ 0 mls/hr AD PRN IV POST-OP CARDIOVASCULAR ORDERS 12/28/24 14:00 12/28/24 14:14 DC Ondansetron HCl (zoFRAN 4MG INJ) 4 mg Q6H PRN IV NAUSEA/VOMITING 12/24/24 03:00 12/28/24 13:54 DC Ondansetron HCl (zoFRAN 4MG INJ) 4 mg Q6H PRN IV NAUSEA/VOMITING 12/28/24 14:00 01/27/25 13:59 12/30/24 11:01 4 MG Potassium Phosphate 250 ml @ 42 mls/hr AD PRN IV LOW PHOS LEVEL 12/28/24 14:00 01/27/25 13:59 12/29/24 06:12 42 MLS/HR Potassium Chloride 100 ml @ 100 mls/hr AD PRN IV POTASSIUM PROTOCOL 12/26/24 15:00 12/28/24 13:54 DC Potassium Chloride 100 ml @ 100 mls/hr AD PRN IV HYPOKALEMIA 12/28/24 14:00 01/27/25 13:59 12/29/24 01:21 100 MLS/HR Potassium Chloride (K-Dur/Klor-Con 20meq) 20 meq AD PRN PO POTASSIUM PROTOCOL 12/26/24 15:00 12/28/24 13:54 DC 12/26/24 18:27 20 MEQ Potassium Chloride (KCl 10% Elixir 20meq/15ml) 20 meq AD PRN PO POTASSIUM PROTOCOL 12/26/24 15:00 12/28/24 13:54 DC Propofol 100 ml @ 0 mls/hr AD PRN IV SEDATION 12/28/24 14:00 01/01/25 13:59 Sodium Polystyrene Sulfonate (kayEXALate 15 GM/60 ML) 30 gm ONCE STAT PO 12/30/24 11:36 12/30/24 11:39 DC 12/30/24 11:45 30 GM Sodium Bicarbonate (Sodium Bicarb 50meq 50ml Vial) 50 meq AD PRN IV OTHER[SEE DOSING INSTRUCTIONS] 12/28/24 14:00 12/31/24 13:59 12/30/24 12:45 100 MEQ Sodium Chloride 500 ml @ 0 mls/hr AD IV 12/28/24 14:00 01/27/25 13:59 Sodium Chloride 1,000 ml @ 10 mls/hr ONCE IV 12/28/24 14:00 12/29/24 13:59 DC 12/28/24 17:06 10 MLS/HR Sodium Chloride (NS Flush 10ml) 10 ml Q8H PRN IVP IV LINE FLUSH 12/28/24 14:00 01/27/25 13:59 Tramadol HCl (UltRAM) 25 mg Q6H PRN PO MODERATE PAIN (4-6) 12/28/24 14:00 12/29/24 13:56 DC 12/29/24 11:05 25 MG Tramadol HCl (UltRAM) 50 mg Q6H PRN PO SEVERE PAIN (7-10) 12/28/24 14:00 12/29/24 13:56 DC DIAGNOSTICS / RADIOLOGY: [ ] ASSESSMENT: 1. Non-STEMI. 2. Multi-vessel coronary artery disease status post CABG 12/28/2024 3. Mild ischemic cardiomyopathy with LVEF 45-50 by left heart catheterization. 4. Hypertension. 5. Anemia. PLAN: NEURO: Minimize central acting medications as possible. Fall Precautions. Well lighted room through the day and minimize interruptions through the night to prevent acute delirium. PULMONARY: Supplemental 02 as needed BiPAP as necessary, for respiratory distress Titrate Fio2 to keep Spo2 > or = 90% DuoNebs and CPT as needed IS hourly while awake for pulmonary hygiene prn Out of bed to chair as tolerated Maintain aspiration precautions at all times CARDIOVASCULAR: Follow hemodynamics. Vital signs per facility protocol GI & NUTRITION: Continue nutritional support Aspirations precautions Prokinetic agents and laxatives as needed KIDNEYS & ELECTROLYTES: Strict monitoring of intake and output Daily weights Avoid nephrotoxic agents Monitor electrolytes and replace as needed Goal urine output of 30mL/hr or 0.5mL/kg/hr Medications to be dosed according to renal function. Avoid contrast if possible ENDOCRINE: Maintain blood glucose between 100-180 at all times. Insulin sliding scale for blood glucose management Hypoglycemia and hyperglycemia protocol in place INFECTIOUS DISEASE: Trend temperature, WBC and procalcitonin level Follow cultures, deescalate antibiotics as soon as possible. Panculture if new onset fever HEMATOLOGY & COAGULATION: Monitor H&H. Keep Hgb > 7 Transfuse 1 unit of PRBC for Hgb < 7 Transfuse 1 pack of platelets of platelets < 20, 000 Watch for any signs and symptoms of bleeding SKIN: Pressure ulcer prevention per facility protocol Specialty mattress as needed ORTHO/REHAB Continue PT/OT PRN: MEDICATIONS Tylenol 650 mg po every 4 hrs for fever zofran 4 mg IV every 6 hrs for n/v Hydralazine 5 mg IV every 4 hrs systolic pressure > 160 bowel regiment: lactulose 20 gm PO BID PRN constipation Supportive measures: Continue GI and DVT prophylaxis Disposition: Pending evaluation by CT surgery for consideration of CABG. All questions answered time spent: > 35 min BURKE SULLIVAN MD Dec 30, 2024 14:55
--- NOTE | 2024-12-30 15:23 | HMCIMG ---
US ABDOMINAL COMPLETE REASON: 54-year-old male with abdominal pain COMPARISON: None FINDINGS: The visualized portion of the chest demonstrate there is small right-sided pleural effusion. There is grade 1 hepatic steatosis the liver.. The left lobe of the liver is obscured by overlying bowel gas. There are no focal mass lesions. The liver is not enlarged.There is a normal-appearing gallbladder. The gallbladder wall thickness is 0.1 cm. The common bile duct is normal size measuring 0.4 cm. Kidneys appear normal in size and appearance. The right kidney measures 9.8 x 4.3 x 4.9 cm. The left kidney measures 9.8 x 4.7 x 5.1 cm.. There is no evidence of mass, stone or hydronephrosis. Spleen appears normal. The spleen length is 9.7 cm.. Aorta and inferior vena cava appear normal. The pancreas is obscured by overlying bowel gas. IMPRESSION: Small right-sided pleural effusion Otherwise a normal upper abdomen sonogram..
[2024-12-30] MEDS: ZOSYN 3.375GM +NS 50ML IV SCH (15:26)
[2024-12-30] MEDS: VASOpressin 20 UNITS/ML 1ML Vi 20 UNITS in 0.9%NACL 100ML 100 ML IV SCH (15:28)
[2024-12-30] MEDS ORDERED: COMPOUND IV MISC 1 EACH IVSOLN MISC PRN (15:30)
[2024-12-30 15:34] LABS: APPEARANCE,URINE CLEAR (CLEAR); GLUCOSE, URINE (UA) NEGATIVE (NEGATIVE); LEUKOCYTE ESTERASE ,URINE 25 Leu/uL (NEGATIVE); NITRATE,URINE NEGATIVE (NEGATIVE); OCCULT BLOOD,URINE LARGE (NEGATIVE)
[2024-12-30 15:37] LABS: CREATININE 3.8 mg/dL (0.5-1.3); GLOMERULAR FILTR. RATE CALC 18.0 mL/min (>90); GLUCOSE,RANDOM 95.0 mg/dL (70-105); SODIUM SERUM 146.0 mmol/L (136-145); UREA NITROGEN, BLOOD 26.0 mg/dL (7-18)
[2024-12-30 15:38] LABS: ADD UA MICROSCOPIC YES
[2024-12-30 15:40] LABS: SQUAMOUS EPITHELIAL CELL,UR RARE /HPF (0-2)
[2024-12-30 16:20] LABS: ABG BASE EXCESS -1.8 mmol/L (-2.0-3.0); ABG HCO3 22.3 mmol/L (21.0-28.0); ABG OXYGEN SATURATION 95.7 % (94.0-98.0); ABG PCO2 35 mmHg (35-48); ABG PH 7.420 (7.350-7.450); CARBON MONOXIDE 0 % (0.5-1.5); DEVICE COMMENT RN EDDIE; PO2, ARTERIAL BG 89.6 mmHg (83.0-108.0); TEMPERATURE, CELSIUS BG 37.0 CELSIUS (35.5-37.0); VENT MODE, BG BIPAP 12,6 (ROOM AIR)
[2024-12-30 17:21] LABS: ABG BASE EXCESS -1.9 mmol/L (-2.0-3.0); ABG HCO3 22.1 mmol/L (21.0-28.0); ABG OXYGEN SATURATION 93.1 % (94.0-98.0); ABG PCO2 34 mmHg (35-48); ABG PH 7.427 (7.350-7.450); CARBON MONOXIDE 0.3 % (0.5-1.5); DEVICE COMMENT RN EDDIE; PO2, ARTERIAL BG 74.5 mmHg (83.0-108.0); TEMPERATURE, CELSIUS BG 37.0 CELSIUS (35.5-37.0); VENT MODE, BG BIPAP 12,6 (ROOM AIR)
[2024-12-30 19:02] LABS: ABG BASE EXCESS 0.1 mmol/L (-2.0-3.0); ABG HCO3 23.6 mmol/L (21.0-28.0); ABG OXYGEN SATURATION 97.7 % (94.0-98.0); ABG PCO2 34 mmHg (35-48); ABG PH 7.464 (7.350-7.450); CARBON MONOXIDE 0.3 % (0.5-1.5); DEVICE COMMENT BIPAP; PO2, ARTERIAL BG 115.4 mmHg (83.0-108.0); TEMPERATURE, CELSIUS BG 37.0 CELSIUS (35.5-37.0); VENT MODE, BG ALINE (ROOM AIR)
--- NOTE | 2024-12-30 19:17 | CONS ---
REFERRING PHYSICIAN: Dr. Mortensen. REASON FOR CONSULTATION: Renal failure. HISTORY OF PRESENT ILLNESS: I did discuss the case with Surgery. A 54-year-old male with a history of diabetes mellitus and hypertension. He has a history of coronary artery disease. He initially presented to outside hospital with chest pain. The patient underwent heart catheterization that revealed three-vessel disease. The patient was seen by Cardiovascular Surgery, underwent coronary artery bypass graft surgery. The patient has developed renal dysfunction postoperatively. He continues on pressors. The patient also with significant hyperkalemia that has been treated medically and the patient is being seen in consultation for all of the above. History is mainly obtained via the chart as the patient is quite confused. PAST MEDICAL HISTORY: Diabetes mellitus, hypertension, coronary artery disease. PAST SURGICAL HISTORY: CABG. SOCIAL HISTORY: No alcohol or tobacco use. FAMILY HISTORY: There is no renal disease in the family. ALLERGIES: There are no allergies. MEDICATIONS: Noted. REVIEW OF SYSTEMS: He is quite confused. He is really unable to give any review of systems. PHYSICAL EXAMINATION: VITAL SIGNS: Blood pressure 140/58 on the pressors, pulse 90s, he is afebrile. GENERAL: Chronically ill male, older than appearing. HEENT: Head is atraumatic. Pupils are equal, roving to light. Oropharynx is without exudate. Nares are clear. NECK: There is no JVP. There is no thyromegaly. No masses. CARDIOVASCULAR: Regular. There is no S3, S4 gallop. LUNGS: Coarse with equal thoracic movement. ABDOMEN: Soft, nondistended, nontender. EXTREMITIES: Reveal no clubbing, no cyanosis. NEUROLOGICAL: He is quite confused. He appears nonfocal. SKIN: Reveals no rash or nodules. BACK: There is no CVA tenderness and no back deformities. LABORATORY DATA: Sodium 142, repeat potassium 4.5, chloride 108, bicarbonate is 28, BUN 22, creatinine is 3, AST 776. Hemoglobin 8.6, hematocrit 27. Iron levels are noted. IMPRESSION: * Acute renal failure. * Coronary artery disease, status post CABG. * Anemia. * Electrolyte abnormalities. * Hypotension. PLAN: The patient presents with worsening renal dysfunction while in the hospital. The patient with hyperkalemia that has improved medically. We will repeat the chem-7 and continue medical management. Urine output has improved with the Lasix. I did discuss with surgical service. There is no acute need for any form of renal replacement therapy. We will send off a urinalysis for completeness. The patient with anemia and will be started on IV iron and we will continue to follow closely. All labs will be repeated in the a.m. TID: [id number] RECEIPT: [id number]
[2024-12-30 20:05] LABS: ABG BASE EXCESS 3.6 mmol/L (-2.0-3.0); ABG HCO3 27.7 mmol/L (21.0-28.0); ABG OXYGEN SATURATION 98.0 % (94.0-98.0); ABG PCO2 40 mmHg (35-48); ABG PH 7.463 (7.350-7.450); CARBON MONOXIDE 0 % (0.5-1.5); DEVICE COMMENT BIPAP; PO2, ARTERIAL BG 121.8 mmHg (83.0-108.0); TEMPERATURE, CELSIUS BG 37.0 CELSIUS (35.5-37.0); VENT MODE, BG ALINE (ROOM AIR)
[2024-12-30 21:18] LABS: ABG BASE EXCESS 2.2 mmol/L (-2.0-3.0); ABG HCO3 26.0 mmol/L (21.0-28.0); ABG OXYGEN SATURATION 95.3 % (94.0-98.0); ABG PCO2 37 mmHg (35-48); ABG PH 7.465 (7.350-7.450); CARBON MONOXIDE 0.3 % (0.5-1.5); DEVICE COMMENT ALINE; PO2, ARTERIAL BG 83.0 mmHg (83.0-108.0); TEMPERATURE, CELSIUS BG 37.0 CELSIUS (35.5-37.0); VENT MODE, BG BIPAP (ROOM AIR)
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
--- NOTE | 2024-12-30 21:55 | PN ---
CARDIOLOGY PROGRESS NOTE SUBJECTIVE: Status post CABG, coursing on postoperative day #2. OBJECTIVE: Awake, alert, neurologically intact. VITAL SIGNS: Stable as recorded in medical record. CHEST: On physical examination, sternum stable, incisions healed. LUNGS: With some crackles. ABDOMEN: Distended. Tympanic. BiPAP in place. Intra-aortic balloon pump 1:1. ASSESSMENT: * Status post CABG. Coronary artery disease. The patient has been hemodynamically stable on the intra-aortic balloon pump . We will add aspirin and continue low-dose epinephrine and low dose Dobutrex. * Acute kidney injury without dialysis. The patient's BUN and creatinine have increased, mainly the creatinine to 2.8 and now 3. He responded to Lasix bolus, Dobutrex, and Lasix drip. * Hyperkalemia. The patient's potassium increased to 6.4, responded to calcium, dextrose, insulin, and Kayexalate. Continue to monitor potassium hourly. * Confusion. The patient has ICU delirium. We are uncertain if the patient is alcoholic or not. We will get some information from the family. * Acute respiratory insufficiency with hypoxia. The patient's PO2 is 60. He is placed in BiPAP and a NG tube was placed to decompress the stomach. PLAN: Continue diuresis. Continue to support hemodynamics. Monitor BUN, creatinine, and potassium. TID: [id number] RECEIPT: [id number]
[2024-12-30 22:12] LABS: ABG BASE EXCESS 2.4 mmol/L (-2.0-3.0); ABG HCO3 26.6 mmol/L (21.0-28.0); ABG OXYGEN SATURATION 97.2 % (94.0-98.0); ABG PCO2 40 mmHg (35-48); ABG PH 7.444 (7.350-7.450); CARBON MONOXIDE 0.3 % (0.5-1.5); DEVICE COMMENT BIPAP; PO2, ARTERIAL BG 106.5 mmHg (83.0-108.0); TEMPERATURE, CELSIUS BG 37.0 CELSIUS (35.5-37.0); VENT MODE, BG ALINE (ROOM AIR)
[2024-12-30 23:12] LABS: ABG BASE EXCESS 3.3 mmol/L (-2.0-3.0); ABG HCO3 27.3 mmol/L (21.0-28.0); ABG OXYGEN SATURATION 96.0 % (94.0-98.0); ABG PCO2 39 mmHg (35-48); ABG PH 7.459 (7.350-7.450); CARBON MONOXIDE 0.3 % (0.5-1.5); DEVICE COMMENT BIPAP; PO2, ARTERIAL BG 87.8 mmHg (83.0-108.0); TEMPERATURE, CELSIUS BG 37.0 CELSIUS (35.5-37.0); VENT MODE, BG ALINE (ROOM AIR)
[2024-12-30 23:59] LABS: ABG BASE EXCESS 2.7 mmol/L (-2.0-3.0); ABG HCO3 26.9 mmol/L (21.0-28.0); ABG OXYGEN SATURATION 95.6 % (94.0-98.0); ABG PCO2 40 mmHg (35-48); ABG PH 7.445 (7.350-7.450); CARBON MONOXIDE 0.1 % (0.5-1.5); DEVICE COMMENT BIPAP; PO2, ARTERIAL BG 87.1 mmHg (83.0-108.0); TEMPERATURE, CELSIUS BG 37.0 CELSIUS (35.5-37.0); VENT MODE, BG ALINE (ROOM AIR)
[2024-12-31] VITALS (105 sets, daily range): BP systolic 59–225; BP diastolic 20–156; PULSE 77–131; RESP 10–35; TEMP 97–98.1; O2SAT 93–100
[2024-12-31 02:07] LABS: ABG BASE EXCESS 3.5 mmol/L (-2.0-3.0); ABG HCO3 27.4 mmol/L (21.0-28.0); ABG OXYGEN SATURATION 94.8 % (94.0-98.0); ABG PCO2 39 mmHg (35-48); ABG PH 7.468 (7.350-7.450); CARBON MONOXIDE 0.3 % (0.5-1.5); DEVICE COMMENT BIPAP; PO2, ARTERIAL BG 79.8 mmHg (83.0-108.0); TEMPERATURE, CELSIUS BG 37.0 CELSIUS (35.5-37.0); VENT MODE, BG ALINE (ROOM AIR)
[2024-12-31 04:24] LABS: ABG BASE EXCESS 0.6 mmol/L (-2.0-3.0); ABG HCO3 24.1 mmol/L (21.0-28.0); ABG OXYGEN SATURATION 95.7 % (94.0-98.0); ABG PCO2 34 mmHg (35-48); ABG PH 7.466 (7.350-7.450); CARBON MONOXIDE 0.1 % (0.5-1.5); DEVICE COMMENT BIPAP; PO2, ARTERIAL BG 86.8 mmHg (83.0-108.0); TEMPERATURE, CELSIUS BG 37.0 CELSIUS (35.5-37.0); VENT MODE, BG ALINE (ROOM AIR)
[2024-12-31 04:47] LABS: NUCLEATED RED BLOOD CELLS 1.4 % (0.0-0.19); PLATELET COUNT (AUTO) 181 K/uL (130-400); RED BLOOD CELL COUNT(AUTO) 3.12 MIL/uL (4.50-6.20); RED CELL DISTRIBUTION WIDTH 22.3 % (11.0-15.5); WHITE BLOOD COUNT (AUTO) 7.6 K/uL (4.8-10.8)
[2024-12-31 05:05] LABS: CREATININE 4.3 mg/dL (0.5-1.3); GLOMERULAR FILTR. RATE CALC 15.0 mL/min (>90); GLUCOSE,RANDOM 145.0 mg/dL (70-105); PHOSPHORUS 6.3 mg/dL (2.5-4.9); SODIUM SERUM 145.0 mmol/L (136-145); TOTAL PROTEIN, SERUM 4.8 g/dL (6.0-8.3); UREA NITROGEN, BLOOD 30.0 mg/dL (7-18)
[2024-12-31 05:09] LABS: ASPARTATE AMINOTRANSFERASE 695.0 U/L (10-37)
[2024-12-31 05:11] LABS: PLATELET MORPHOLOGY PLT CLUMPS PRESENT
[2024-12-31 07:05] LABS: ABG BASE EXCESS 1.1 mmol/L (-2.0-3.0); ABG HCO3 24.2 mmol/L (21.0-28.0); ABG OXYGEN SATURATION 94.6 % (94.0-98.0); ABG PCO2 32 mmHg (35-48); ABG PH 7.493 (7.350-7.450); CARBON MONOXIDE 0.1 % (0.5-1.5); DEVICE COMMENT ALINE; PO2, ARTERIAL BG 75.2 mmHg (83.0-108.0); TEMPERATURE, CELSIUS BG 37.0 CELSIUS (35.5-37.0); VENT MODE, BG BIPAP12-6 (ROOM AIR)
--- NOTE | 2024-12-31 07:18 | HMCIMG ---
EXAM: CR Chest, 1 View. CLINICAL HISTORY: CABG COMPARISON: Radiograph dated December 30, 2024 FINDINGS: Enteric tube terminates within the stomach. Right IJ central venous catheter tip projects over the SVC. Left chest tube remains in satisfactory position. Relatively unchanged mild multifocal airspace disease, more pronounced at the left lung base. No pleural effusion or pneumothorax. Heart size is stable. Mild central pulmonary vascular congestion. IMPRESSION: Stable mild multifocal airspace disease, more pronounced at left lung base, with mild central pulmonary vascular congestion. Satisfactory position of the support lines and tubes. /[place]
--- NOTE | 2024-12-31 07:47 | NUR ---
Absent left pedal pulses No left dorsalis or tibial pedal pulses auscultated via doppler. Left popliteal pulse obtained via doppler. Minimal left foot movement noted. Placed call to Dr. Ames to notify. Per MD, order ultrasound of left lower extremity and set IABP frequency to 1:3 and prepare for removal. Orders followed through.
[2024-12-31 07:59] LABS: ABG BASE EXCESS 1.9 mmol/L (-2.0-3.0); ABG HCO3 25.7 mmol/L (21.0-28.0); ABG OXYGEN SATURATION 94.9 % (94.0-98.0); ABG PCO2 37 mmHg (35-48); ABG PH 7.463 (7.350-7.450); CARBON MONOXIDE 0.2 % (0.5-1.5); PO2, ARTERIAL BG 79.1 mmHg (83.0-108.0); TEMPERATURE, CELSIUS BG 37.0 CELSIUS (35.5-37.0); VENT MODE, BG BIPAP 12-6 (ROOM AIR)
[2024-12-31] MEDS: ENOXAPARIN SODIUM 30 MG/0.3 ML SQ SCH (08:43)
--- NOTE | 2024-12-31 08:58 | PN ---
[facility] PROGRESS NOTE Date of Service: Dec 31, 2024 Time of Service: 08:56 SUBJECTIVE: This is a 54-year-old male who presented to [facility] with a non-STEMI. He underwent left heart catheterization which showed severe multi-vessel coronary artery disease with mid to apical inferior hypokinesis, LVEF 45-50%. He underwent echocardiogram 12/19/2024 which showed an ejection fraction of 55- 60%, mild LVH, normal-sized left atrium, mild mitral valve regurgitation and mild tricuspid valve regurgitation. He was transferred to [facility] [place]. 12/25 patient remains admitted to the PCU, case discussed with the RN, no acute events overnight, he denied chest pain, shortness shortness for breath, no nausea, no vomiting, no abdominal discomfort. Cardiology input noted and appreciated, patient to continue aspirin 81 mg p.o. daily and atorvastatin 40 mg p.o. daily. Continue metoprolol tartrate 25 mg p.o. b.i.d.. Pending evaluation by CT surgery for consideration for CABG. Discussed with the patient. 12/26 patient remains admitted to the PCU, case discussed with the RN, no acute events overnight, the time of my visit the patient is comfortably in bed, alert oriented x3, eating breakfast, tolerating well, denies nausea, no vomiting, no abdominal discomfort, he denies chest pain, no shortness a breath. Remains on aspirin 81 mg p.o. daily, atorvastatin and metoprolol 25 mg p.o. b.i.d.. Pending evaluation by CT surgery for consideration of CABG. 12/27 patient is seen and examined at bedside, case discussed with the RN, no acute events overnight, currently the patient NPO, scheduled for CABG today by Cardiothoracic surgeon. We will continue to follow. 12/28 patient is seen and examined at bedside, case discussed with the RN, no acute events overnight, currently the patient NPO, scheduled for CABG today by Cardiothoracic surgeon. We will continue to follow. 12/29 patient is seen and examined at bedside, remains admitted to the ICU, postoperative day 1., status post CABG 12/28/2024, patient on insulin drip, nitroglycerin drip, alert oriented x3 following commands, however was mildly agitated earlier this morning, motion with the RN started on Precedex. Patient with chest tube in place. Further recommendations per Cardiothoracic surgeon. 12/30 patient remains admitted to the ICU, case discussed with the RN, patient remains confused, trying to pull his IV lines, remains on Precedex. Throughout the balloon pump in place, just to be breath, remains on epinephrine, Levophed, Lasix drip, dobutamine drip. Creatinine today at 3.0. Nephrology consultation requested, we will follow input and recommendation. Continue to monitor liver enzymes in a.m., follow ammonia level (at the time of my dictation less than 10). Continue to follow critical care input and recommendation. Prognosis remains guarded. 12/31 54-year-old male who was transferred from [facility] with a non- STEMI. He underwent left heart catheterization which showed severe multi-vessel coronary artery disease with mid to apical inferior hypokinesis, LVEF 45-50%. He underwent echocardiogram 12/19/2024 which showed an ejection fraction of 55- 60%, mild LVH, normal-sized left atrium, mild mitral valve regurgitation and mild tricuspid valve regurgitation. He was transferred to [facility] for CABG. Cardiothoracic surgeon consultation requested, patient underwent CABG 12/28/2024. Continue to follow Cardiothoracic input and recommendations. Patient has been mildly confused post procedure, started on Precedex. REVIEW OF SYSTEMS CONSTITUTIONAL: Denies fevers, chills, or night sweats. No unintentional weight loss reported. NEUROLOGICAL: Denies headache, amaurosis fugax, motor weakness, sensory deficit, vertigo/spinning sensation, gait abnormalities, or tremors. ENT: No hearing loss, otalgia, otorrhea, rhinitis, rhinorrhea, hoarseness, or sore throat. CARDIOVASCULAR: Denies any exertional angina, dyspnea on exertion, orthopnea, paroxysmal nocturnal dyspnea, palpitations, life-threatening arrhythmias, claudication. PULMONARY: Denies any shortness of breath, cough, phlegm/sputum, hemoptysis, pleuritic chest pain. SLEEP: Denies morning headaches, daytime somnolence or napping. Denies difficulty falling asleep, staying asleep, waking from sleep. Denies knowledge of snoring. GASTROINTESTINAL: Denies any type of dysphagia to either liquids or solids. Denies nausea, vomiting, pyrosis, early satiety, abdominal pain, diarrhea, constipation, or changes in stool consistency or caliber. Denies coffee-ground emesis, hematemesis, hematochezia, or melanotic stools. GENITOURINARY: Denies frequency, urgency, nocturia, hematuria or incontinence (Storage/Irritative symptoms.) Low urinary stream, straining to void, urinary intermittency or hesitancy, splitting of the voiding stream, terminal dribbling. ENDOCRINOLOGIC: Denies polyuria, polydipsia, polyphagia or heat/cold intolerances. HEMATOLOGIC: Denies thrombophilia/previous clots, or coagulopathy/bleeding disorders. ONCOLOGIC: Denies personal history of malignancy. DERMATOLOGIC: Denies rashes or pruritus. PSYCHIATRIC: Denies any suicidal or homicidal ideation. Denies hallucinations. PHYSICAL EXAM GENERAL APPEARANCE: Patient is confused, trying to pull his IV lines, on Precedex. NEUROLOGICAL: Cranial nerves II-XII grossly intact. Motor is 5/5 in bilateral upper and lower extremities proximal to distal. No sensory deficits. HEENT: Face is symmetric. Pupils are equal and reactive. Extraocular movements are intact. NECK: Supple. No JVD. No thyromegaly. No submental, submandibular, pre- /postauricular, occipital or supraclavicular lymphadenopathy. CHEST: Normal chest expansion. No Telemetry. LUNGS: Absence of any rales, rhonchi or any wheezing. Chest tube in place. CARDIOVASCULAR: Regular. S1 and S2 normal. No appreciable rubs, murmurs or gallops. ABDOMEN: Soft, nontender, and nondistended. There is no rebound, voluntary guarding, or rigidity. : Deferred. No Andres. EXTREMITIES: Non-edematous and not cyanotic. No clubbing. Good capillary refill. SKIN: No skin breakdown. Vital Signs (last 8hr) Date Time Temp Pulse Resp B/P (MAP) Pulse Ox O2 Delivery O2 Flow Rate FiO2 12/31/24 08:00 97.5 BIPAP 55 12/31/24 07:01 93 18 12/31/24 06:59 91 26 55 12/31/24 06:45 89 10 133/63 (86) 100 12/31/24 06:30 85 20 153/61 (91) 100 105/64 (78) 12/31/24 06:15 87 13 161/67 (98) 99 12/31/24 06:00 92 35 140/71 (94) 97 55 111/52 (71) 12/31/24 05:45 89 30 132/66 (88) 96 12/31/24 05:30 90 30 133/69 (90) 96 92/56 (68) 12/31/24 05:15 91 23 142/64 (90) 99 12/31/24 05:00 92 27 170/65 (100) 99 55 132/51 (78) 12/31/24 04:45 91 21 106/56 (73) 100 12/31/24 04:30 91 24 113/57 (75) 100 109/54 (72) 12/31/24 04:15 85 13 131/61 (84) 99 12/31/24 04:03 97.5 12/31/24 04:00 83 13 143/63 (89) 98 55 128/63 (84) 12/31/24 03:55 99 Bi-PAP+ 55 12/31/24 03:45 84 16 156/68 (97) 98 12/31/24 03:30 82 16 175/65 (101) 98 141/73 (95) 12/31/24 03:24 89 20 55 12/31/24 03:15 87 25 151/64 (93) 98 12/31/24 03:00 86 21 171/64 (99) 98 55 143/63 (89) 12/31/24 02:45 82 16 169/65 (99) 99 12/31/24 02:30 84 13 147/66 (93) 99 106/54 (71) 12/31/24 02:15 82 16 167/65 (99) 99 12/31/24 02:00 82 20 152/62 (92) 99 55 123/65 (84) 12/31/24 01:45 82 17 169/65 (99) 99 12/31/24 01:30 81 12 154/62 (92) 98 124/47 (72) 12/31/24 01:15 80 13 177/67 (103) 98 12/31/24 01:00 80 17 171/64 (99) 99 55 147/46 (79) LABS: Laboratory: Test 12/31/24 07:57 12/31/24 04:21 12/30/24 15:25 12/30/24 14:46 Range/Units Blood Gas Specimen Type Arterial Arterial Blood pH 7.463 H 7.350-7.450 Arterial Blood Partial Pressure CO2 37 35-48 mmHg Arterial Blood Partial Pressure O2 79.1 L 83.0-108.0 mmHg Arterial Blood HCO3 25.7 21.0-28.0 mmol/L Arterial Blood Oxygen Saturation 94.9 94.0-98.0 % Arterial Blood Base Excess 1.9 -2.0-3.0 mmol/L Hemoglobin (Blood Gas) 8.6 L 13.5-17.5 g/dL Sodium (Blood Gas) 141 136-145 MMOL/L Bedside Potassium (Blood Gas) 4.8 H 3.4-4.5 MMOL/L Bedside Chloride (Blood Gas) 106 98-107 MMOL/L Bedside Glucose (Blood Gas) 153 H 65-95 MG/DL Bedside Ionized Calcium (Blood Gas) 1.21 1.15-1.33 MMOL/L Bedside Lactic Acid (Blood Gas) 2.89 H 0.36-0.75 MMOL/L Blood Gas Temperature 37.0 35.5-37.0 CELSIUS Blood Gas Respiration Rate 18.0 min. Blood Gas Vent Mode BIPAP 12-6 ROOM AIR FiO2 55.0 % Blood Gas Specimen Comment ALINEBRIZA White Blood Count 7.6 4.8-10.8 K/uL Red Blood Count 3.12 L 4.50-6.20 MIL/uL Hemoglobin 7.6 L 14.0-18.0 g/dL Hematocrit 24.5 L 42-54 % Mean Corpuscular Volume 78.5 L 79-99 fL Mean Corpuscular Hemoglobin 24.4 L 27.0-33.0 pg Mean Corpuscular Hemoglobin Concent 31.0 L 32.0-36.0 g/dL Red Cell Distribution Width 22.3 H 11.0-15.5 % Platelet Count 181 130-400 K/uL Mean Platelet Volume 10.3 7.5-10.5 fL Nucleated Red Blood Cells 1.4 H 0.0-0.19 % Platelet Morphology PLT CLUMPS PRESENT Red Blood Cell Morphology ANISO 1+ Sodium Level 145 136-145 mmol/L Potassium Level 4.6 3.5-5.1 mmol/L Chloride Level 107 101-111 mmol/L Carbon Dioxide Level 29 21-32 mmol/L Blood Urea Nitrogen 30 H 7-18 mg/dL Creatinine 4.3 H 0.5-1.3 mg/dL Glomerular Filtration Rate Calc 15 >90 mL/min Random Glucose 145 #H 70-105 mg/dL Total Calcium 9.4 8.5-10.1 mg/dL Phosphorus Level 6.3 H 2.5-4.9 mg/dL Magnesium Level 2.10 1.80-2.40 mg/dL Total Bilirubin 0.4 0.2-1.0 mg/dL Aspartate Amino Transf (AST/SGOT) 695 *H 10-37 U/L Alanine Aminotransferase (ALT/SGPT) 341 #H 12-78 U/L Alkaline Phosphatase 96 # 50-136 U/L Total Protein 4.8 L 6.0-8.3 g/dL Albumin 1.7 L 3.5-5.0 g/dL Urine Color LIGHT-YELLOW YELLOW Urine Appearance CLEAR CLEAR Urine pH 6.5 5.0-8.0 Urine Specific [place] 1.009 1.001-1.031 Urine Protein NEGATIVE NEGATIVE mg/dL Urine Glucose (UA) NEGATIVE NEGATIVE mg/dL Urine Ketones NEGATIVE NEGATIVE mg/dL Urine Occult Blood LARGE H NEGATIVE Urine Nitrate NEGATIVE NEGATIVE Urine Bilirubin NEGATIVE NEGATIVE mg/dL Urine Urobilinogen 0.2 0.2-1.0 mg/dL Urine Leukocyte Esterase 25 H NEGATIVE Jorge/uL Urine RBC 11-25 H 0-1 /HPF Urine WBC 2-5 H 0-1 /HPF Urine Squamous Epithelial Cells RARE 0-2 /HPF Urine Bacteria None None Seen /HPF Blood Gas Flow-by 4.00 0.00-15.00 L/min Test 12/30/24 09:31 12/30/24 04:45 12/30/24 04:41 12/29/24 20:20 Range/Units Ammonia < 10 L 11-32 umol/L Whole Blood Glucose 119 H 70-110 MG/DL Direct Bilirubin 0.2 0.0-0.3 mg/dL Ionized Calcium 1.13 L 1.15-1.33 MMOL/L Test 12/29/24 12:15 Range/Units Immature Granulocyte % (Auto) 0.5 0-1 % Neutrophils (%) (Auto) 75.2 40.0-77.0 % Lymphocytes (%) (Auto) 16.4 L 21.0-51.0 % Monocytes (%) (Auto) 7.3 3.0-13.0 % Eosinophils (%) (Auto) 0.2 0.0-8.0 % Basophils (%) (Auto) 0.4 0.0-5.0 % Neutrophils # (Auto) 7.1 1.8-7.7 K/uL Lymphocytes # (Auto) 1.6 1.0-4.8 K/uL Monocytes # (Auto) 0.7 0.1-1.0 K/uL Eosinophils # (Auto) 0.02 0.00-0.70 K/uL Basophils # (Auto) 0.04 0.00-0.20 K/uL Absolute Immature Granulocyte (auto 0.05 0-1 K/uL Current Medications Medications (Trade) Dose Ordered Sig/Mila Route PRN Reason Start Time Stop Time Status Last Admin Dose Admin Acetaminophen (TYLenol 325MG TAB) 650 mg Q4H PRN PO Temp >38.3C(AFTER EXTUBATION) 12/28/24 14:00 01/27/25 13:59 Acetaminophen (TYLenol 325MG TAB) 650 mg Q6H PRN PO MILD PAIN (1-3) 12/24/24 01:30 12/28/24 13:57 DC 12/27/24 23:45 650 MG Acetaminophen (TYLenol 325MG TAB) 650 mg Q6H PRN PO TEMPERATURE GREATER THAN 101.5 12/24/24 03:00 12/28/24 14:10 DC Acetaminophen (TYLenol 325MG TAB) 650 mg Q6H PRN PO MILD PAIN (1-3) 12/28/24 14:00 01/27/25 13:59 12/30/24 07:51 650 MG Acetaminophen (TYLenol 650MG SUPPOSITORY) 650 mg Q4H PRN RC Temp >38.3C WHILE INTUBATED 12/28/24 14:00 01/27/25 13:59 Acetaminophen (acetaMINOPHEN) 1,000 mg Q6H6 IV 12/28/24 18:00 12/29/24 17:59 DC 12/29/24 17:27 1,000 MG Acetaminophen (acetaMINOPHEN) 1,000 mg Q6H6 IVPB 12/30/24 00:00 01/29/25 00:00 12/30/24 18:16 1,000 MG Albumin Human 250 ml @ 0 mls/hr AD PRN IV IF HEMODYNAMICALLY UNSTABLE 12/28/24 14:00 12/29/24 09:28 DC 12/29/24 09:28 250 MLS/HR Albuterol Sulfate (Proventil 0.083% 2.5mg/3ml) 2.5 mg ONCE STAT IH 12/30/24 10:22 12/30/24 10:32 DC 12/30/24 10:43 2.5 MG Aminocaproic Acid 21949 mg/Sodium Chloride 310 ml @ 25 mls/hr AD IV 12/28/24 14:00 12/28/24 14:14 DC Aminocaproic Acid 19837 mg/Sodium Chloride 480 ml @ 0 mls/hr AD PRN IV BLEEDING CONTROL 12/27/24 11:00 01/26/25 10:59 Aspirin (Aspirin 81mg Ec Tab) 81 mg DAILY PO 12/24/24 09:00 01/23/25 08:59 12/31/24 08:51 81 MG Atorvastatin Calcium (LIPItor 40MG) 40 mg HS PO 12/24/24 21:00 01/23/25 20:59 12/30/24 20:19 40 MG Bisacodyl (DulcoLAX) 10 mg DAILY PRN RC CONSTIPATION - MOM INEFFECTIVE 12/29/24 14:00 01/28/25 13:59 12/30/24 11:05 10 MG Calcium Gluconate 1 gm/Sodium Chloride 60 ml @ 200 mls/hr AD PRN IV HYPOCALCEMIA 12/28/24 14:00 01/27/25 13:59 12/30/24 11:49 200 MLS/HR Cefazolin Sodium (ANCEF 1 gm vial) 2 gm ONCALL IVP 12/26/24 16:30 12/26/24 16:28 DC Cefazolin Sodium (Ancef) 2 gm ONCALL PRN IVP SURGERY 12/26/24 16:30 12/28/24 13:57 DC Cefazolin Sodium (Ancef) 2 gm Q8H IVPB 12/28/24 19:00 12/29/24 11:01 DC 12/29/24 11:04 2 GM Dexmedetomidine/ Sodium Chloride (PRECEdex 400MCG/ 100ML-NS) 400 mcg PROTOCOL IV 12/28/24 14:00 12/29/24 13:59 DC 12/29/24 12:16 400 MCG Dexmedetomidine/ Sodium Chloride (PRECEdex 400MCG/ 100ML-NS) 400 mcg PROTOCOL IV 12/29/24 18:00 01/28/25 17:59 12/31/24 06:05 400 MCG Dextrose (D50w) 50 ml AD PRN IV HYPOGLYCEMIA PROTOCOL 12/28/24 14:00 01/27/25 13:59 Dextrose (D50w) 50 ml ONCE STAT IV 12/30/24 11:36 12/30/24 11:39 DC 12/30/24 11:45 50 ML Dextrose/Sodium Chloride 1,000 ml @ 50 mls/hr Q20H IV 12/30/24 11:30 01/29/25 11:29 12/31/24 06:05 50 MLS/HR Dobutamine HCl/ Dextrose 250 ml @ 0 mls/hr PROTOCOL IV 12/29/24 14:00 01/28/25 13:59 12/30/24 17:27 8.6 MLS/HR Docusate Sodium (COLace 100MG CAP) 100 mg BID PO 12/28/24 21:00 12/29/24 08:01 DC 12/28/24 20:53 100 MG Docusate Sodium (COLace LIQUID 100MG/10ML) 100 mg BID PO 12/29/24 08:00 01/28/25 07:59 12/31/24 08:51 100 MG Enoxaparin Sodium (Lovenox) 30 mg DAILY SQ 12/31/24 09:00 01/30/25 08:59 Epinephrine HCl 10 mg/Sodium Chloride 250 ml @ 0 mls/hr AD PRN IV TITRATE 12/27/24 11:00 01/26/25 10:59 12/30/24 04:29 0 MLS/HR Epinephrine HCl 10 mg/Sodium Chloride 250 ml @ 0 mls/hr AD PRN IV POST-OP CARDIOVASCULAR ORDERS 12/28/24 14:00 12/28/24 14:14 DC Famotidine (Pepcid 20mg Vial) 20 mg BID IV 12/28/24 21:00 01/27/25 20:59 12/31/24 08:51 20 MG Famotidine (Pepcid 20mg Tab) 20 mg DAILY PO 12/24/24 09:00 12/28/24 13:54 DC 12/26/24 10:19 20 MG Furosemide (LASix 20MG TAB) 20 mg Q12H PO 12/30/24 09:00 12/30/24 08:34 DC Furosemide (LASix 20MG VIAL) 20 mg Q12H IV 12/29/24 09:00 12/30/24 08:34 DC 12/29/24 09:20 20 MG Furosemide 100 mg/ Sodium Chloride 100 ml @ 0 mls/hr PROTOCOL IV 12/29/24 14:30 01/28/25 14:29 12/30/24 20:47 10 MLS/HR Glucagon (Glucagon 1mg Kit) 1 mg AD PRN IM HYPOGLYCEMIA PROTOCOL 12/28/24 14:00 01/27/25 13:59 Heparin Sodium (Porcine) (HEParin 5,000 UNIT VIAL) *calculation based on ACTUAL B... AD PRN IV HEPARIN PROTOCOL 12/24/24 02:30 12/28/24 13:54 DC 12/24/24 17:32 5,000 UNIT Heparin Sodium/ Dextrose 250 ml @ 0 mls/hr Q6H IV 12/24/24 02:30 12/28/24 13:54 DC 12/27/24 17:04 11.3 MLS/HR Hydralazine HCl (APRESOLine 20MG INJ) 10 mg Q6H PRN IV For:SBP above 160;DBP above 90 12/24/24 03:00 12/28/24 13:54 DC Insulin Human Regular (humuLIN R 100 UNIT/ML 3ML) 10 unit ONCE STAT IV 12/30/24 11:42 12/30/24 11:45 DC 12/30/24 12:01 10 UNIT Insulin Human Regular (humuLIN R 100 UNIT/ML 3ML) 10 unit ONCE STAT SQ 12/30/24 11:36 12/30/24 11:43 DC Insulin Human Regular 100 unit/ Sodium Chloride 100 ml @ 0 mls/hr AD IV 12/28/24 14:00 12/29/24 17:55 DC 12/28/24 17:09 5 MLS/HR Ipratropium [place] (AtrovENT UD) 0.5 mg [id number] IH 12/30/24 12:00 01/29/25 11:59 12/31/24 07:00 0.5 MG Lactulose (Constulose 20gm/ 30ml Udcup) 20 gm BID PRN PO CONSTIPATION 12/24/24 03:00 12/28/24 13:54 DC 12/26/24 21:30 20 GM Lactulose (Constulose 20gm/ 30ml Udcup) 20 gm BID PRN PO CONSTIPATION 12/28/24 14:00 01/27/25 13:59 12/30/24 07:50 20 GM Lidocaine HCl/ Dextrose 250 ml @ 0 mls/hr AD PRN IV TITRATE 12/28/24 22:30 12/29/24 16:00 DC 12/29/24 06:53 15 MLS/HR Magnesium Hydroxide (Milk Of Magnesium 30ml) 30 ml DAILY PRN PO CONSTIPATION 12/28/24 14:00 01/27/25 13:59 12/30/24 10:18 30 ML Magnesium Sulfate 50 ml @ 12.5 mls/hr AD PRN IV MAG LEVEL LESS THAN 2.0 12/28/24 14:00 01/27/25 13:59 12/28/24 18:42 12.5 MLS/HR Magnesium Sulfate 50 ml @ 0 mls/hr PROTOCOL PRN IV MAGNESIUM PROTOCOL 12/26/24 15:00 12/28/24 14:10 DC Metoprolol Tartrate (loprESSOR) 12.5 mg BID PO 12/30/24 09:00 01/29/25 08:59 Metoprolol Tartrate (loprESSOR) 25 mg BID PO 12/25/24 21:00 12/28/24 13:54 DC 12/28/24 09:28 25 MG Morphine Sulfate (morPHINE 2MG SYG) 0.5 mg Q2H PRN IV MODERATE PAIN (4-6) 12/28/24 14:00 12/29/24 13:59 DC Morphine Sulfate (morPHINE 2MG SYG) 1 mg Q2H PRN IV SEVERE PAIN (7-10) 12/28/24 14:00 12/29/24 13:59 DC 12/28/24 17:05 1 MG Morphine Sulfate (morPHINE 2MG SYG) 2 mg Q4H PRN IVP SEVERE PAIN (7-10) 12/24/24 03:00 12/28/24 13:54 DC 12/26/24 02:43 2 MG Nitroglycerin (Nitroglycerin 1gm Oint) 0.5 inch Q8H5 TD 12/24/24 01:30 12/28/24 13:54 DC 12/27/24 12:57 0.5 INCH Nitroglycerin/ Dextrose 0 ml @ 0 mls/hr AD IV 12/28/24 14:00 12/31/24 13:59 Norepinephrine Bitartrate 250 ml @ 0 mls/hr AD PRN IV TITRATE 12/27/24 11:00 01/26/25 10:59 12/30/24 12:34 3.8 MLS/HR Norepinephrine Bitartrate 8 mg/ Dextrose 250 ml @ 0 mls/hr AD PRN IV POST-OP CARDIOVASCULAR ORDERS 12/28/24 14:00 12/28/24 14:14 DC Ondansetron HCl (zoFRAN 4MG INJ) 4 mg Q6H PRN IV NAUSEA/VOMITING 12/24/24 03:00 12/28/24 13:54 DC Ondansetron HCl (zoFRAN 4MG INJ) 4 mg Q6H PRN IV NAUSEA/VOMITING 12/28/24 14:00 01/27/25 13:59 12/30/24 11:01 4 MG Piperacillin Sod/ Tazobactam Sod (Zosyn 3.375gm+NS 50ml) 3.375 gm Q12H IV 12/30/24 15:30 01/09/25 15:29 12/31/24 02:36 3.375 GM Potassium Phosphate 250 ml @ 42 mls/hr AD PRN IV LOW PHOS LEVEL 12/28/24 14:00 01/27/25 13:59 12/29/24 06:12 42 MLS/HR Potassium Chloride 100 ml @ 100 mls/hr AD PRN IV POTASSIUM PROTOCOL 12/26/24 15:00 12/28/24 13:54 DC Potassium Chloride 100 ml @ 100 mls/hr AD PRN IV HYPOKALEMIA 12/28/24 14:00 01/27/25 13:59 12/29/24 01:21 100 MLS/HR Potassium Chloride (K-Dur/Klor-Con 20meq) 20 meq AD PRN PO POTASSIUM PROTOCOL 12/26/24 15:00 12/28/24 13:54 DC 12/26/24 18:27 20 MEQ Potassium Chloride (KCl 10% Elixir 20meq/15ml) 20 meq AD PRN PO POTASSIUM PROTOCOL 12/26/24 15:00 12/28/24 13:54 DC Propofol 100 ml @ 0 mls/hr AD PRN IV SEDATION 12/28/24 14:00 01/01/25 13:59 Sodium Polystyrene Sulfonate (kayEXALate 15 GM/60 ML) 30 gm ONCE STAT PO 12/30/24 11:36 12/30/24 11:39 DC 12/30/24 11:45 30 GM Sodium Bicarbonate (Sodium Bicarb 50meq 50ml Vial) 50 meq AD PRN IV OTHER[SEE DOSING INSTRUCTIONS] 12/28/24 14:00 12/31/24 13:59 12/30/24 12:45 100 MEQ Sodium Chloride 500 ml @ 0 mls/hr AD IV 12/28/24 14:00 01/27/25 13:59 Sodium Chloride 1,000 ml @ 10 mls/hr ONCE IV 12/28/24 14:00 12/29/24 13:59 DC 12/28/24 17:06 10 MLS/HR Sodium Chloride (NS Flush 10ml) 10 ml Q8H PRN IVP IV LINE FLUSH 12/28/24 14:00 01/27/25 13:59 Tramadol HCl (UltRAM) 25 mg Q6H PRN PO MODERATE PAIN (4-6) 12/28/24 14:00 12/29/24 13:56 DC 12/29/24 11:05 25 MG Tramadol HCl (UltRAM) 50 mg Q6H PRN PO SEVERE PAIN (7-10) 12/28/24 14:00 12/29/24 13:56 DC Vasopressin 20 units/Sodium Chloride 100 ml @ 0 mls/hr PROTOCOL IV 12/30/24 15:30 01/29/25 15:29 12/30/24 15:28 6 MLS/HR DIAGNOSTICS / RADIOLOGY: [ ] ASSESSMENT: 1. Non-STEMI. 2. Multi-vessel coronary artery disease status post CABG 12/28/2024 3. Mild ischemic cardiomyopathy with LVEF 45-50 by left heart catheterization. 4. Hypertension. 5. Anemia. PLAN: NEURO: Minimize central acting medications as possible. Fall Precautions. Well lighted room through the day and minimize interruptions through the night to prevent acute delirium. PULMONARY: Supplemental 02 as needed BiPAP as necessary, for respiratory distress Titrate Fio2 to keep Spo2 > or = 90% DuoNebs and CPT as needed IS hourly while awake for pulmonary hygiene prn Out of bed to chair as tolerated Maintain aspiration precautions at all times CARDIOVASCULAR: Follow hemodynamics. Vital signs per facility protocol GI & NUTRITION: Continue nutritional support Aspirations precautions Prokinetic agents and laxatives as needed KIDNEYS & ELECTROLYTES: Strict monitoring of intake and output Daily weights Avoid nephrotoxic agents Monitor electrolytes and replace as needed Goal urine output of 30mL/hr or 0.5mL/kg/hr Medications to be dosed according to renal function. Avoid contrast if possible ENDOCRINE: Maintain blood glucose between 100-180 at all times. Insulin sliding scale for blood glucose management Hypoglycemia and hyperglycemia protocol in place INFECTIOUS DISEASE: Trend temperature, WBC and procalcitonin level Follow cultures, deescalate antibiotics as soon as possible. Panculture if new onset fever HEMATOLOGY & COAGULATION: Monitor H&H. Keep Hgb > 7 Transfuse 1 unit of PRBC for Hgb < 7 Transfuse 1 pack of platelets of platelets < 20, 000 Watch for any signs and symptoms of bleeding SKIN: Pressure ulcer prevention per facility protocol Specialty mattress as needed ORTHO/REHAB Continue PT/OT PRN: MEDICATIONS Tylenol 650 mg po every 4 hrs for fever zofran 4 mg IV every 6 hrs for n/v Hydralazine 5 mg IV every 4 hrs systolic pressure > 160 bowel regiment: lactulose 20 gm PO BID PRN constipation Supportive measures: Continue GI and DVT prophylaxis Disposition: Pending evaluation by CT surgery for consideration of CABG. All questions answered time spent: > 35 min BURKE SULLIVAN MD Dec 31, 2024 08:58
--- NOTE | 2024-12-31 09:00 | NUR ---
Ultrasound Adaptive Physical Education Teacher Nuria at bedside for left lower extremity arterial ultrasound. Patient confused, combative, attempting to kick US tech. Patient able to be reoriented after repeated reorientation by primary RN.
--- NOTE | 2024-12-31 09:27 | HMCIMG ---
US ARTERIAL UNILA LOW EXT DUPL HISTORY: nonpalpable pedal/tibial pulses TECHNIQUE: Real-time arterial doppler ultrasound of the lower extremity was performed. Patient currently with IABP FINDINGS: LEFT: Patient with from. Peak systolic velocities: FIREBOAT OPERATOR 29 cm/s. Proximal SFA 22 cm/s. Mid SFA 20cm/s Distal SFA 23 cm/s. Proximal popliteal 24 cm/s. Distal popliteal 21 cm/s. SPAR FINISHER 12 cm/s. LUIS no flow DPA no flow cm/s. IMPRESSION: Monophasic waveforms throughout the left lower extremity suggesting of inflow disease No flow seen in the left anterior tibial artery or dorsalis pedis arteries.
[2024-12-31 09:53] LABS: ABG BASE EXCESS -0.8 mmol/L (-2.0-3.0); ABG HCO3 22.6 mmol/L (21.0-28.0); ABG OXYGEN SATURATION 94.6 % (94.0-98.0); ABG PCO2 32 mmHg (35-48); ABG PH 7.465 (7.350-7.450); CARBON MONOXIDE 0.1 % (0.5-1.5); DEVICE COMMENT ALINE; PO2, ARTERIAL BG 78.8 mmHg (83.0-108.0); TEMPERATURE, CELSIUS BG 37.0 CELSIUS (35.5-37.0); VENT MODE, BG BIPAP12-6 (ROOM AIR)
--- NOTE | 2024-12-31 10:23 | NUR ---
Family communication Placed call to patient's decision maker Son Keny Patel, notified of ordered thrombectomy and removal of IABP as per Dr. Ames. Patient's son agrees with plan of care.
--- NOTE | 2024-12-31 11:17 | NUR ---
Nephrology Rounds Dr. Khushi Landis at bedside. Notified of increased creatinine level and leg arterial occlusion with pending thrombectomy and removal of IABP. No new orders received.
--- NOTE | 2024-12-31 11:25 | NUR ---
nursing note continued Dr. Ames at bedside and aware of ultrasound results. Per MD, prepare patient for OR.
--- NOTE | 2024-12-31 11:25 | NUR ---
Dr. Ames and Kiko Estrada [facility], critical power install technician Nuria at bedside for IABP removal and post assessment of left lower extremity arterial flow. Per US tech, no flow to left foot post IABP remocval
--- NOTE | 2024-12-31 11:55 | NUR ---
Hemostasis achieved to left groin s/p IABP removal. Patient now being transferred to OR.
[2024-12-31 11:58] LABS: ABG BASE EXCESS 3.2 mmol/L (-2.0-3.0); ABG HCO3 26.9 mmol/L (21.0-28.0); ABG OXYGEN SATURATION 96.7 % (94.0-98.0); ABG PCO2 37 mmHg (35-48); ABG PH 7.476 (7.350-7.450); CARBON MONOXIDE 0.3 % (0.5-1.5); DEVICE COMMENT ALINE; PO2, ARTERIAL BG 95.6 mmHg (83.0-108.0); TEMPERATURE, CELSIUS BG 37.0 CELSIUS (35.5-37.0); VENT MODE, BG BIPAP12-6 (ROOM AIR)
--- NOTE | 2024-12-31 12:40 | PN ---
[facility] CARDIOLOGY PROGRESS NOTE Date Patient Seen: Dec 31, 2024 Time of Visit: 12:19 Interval History: This is a 54-year-old Latin-Af[place] male with no significant past medical history was a transfer for admission hospital sustained a non ST segment eleva tion OR. He was also found to have anemia with a hemoglobin of 7.1 and underwent an EGD which was negative for any active bleeding ulcers. He underwent further assessment with a cardiac catheterization demonstrating multivessel coronary artery disease and was transferred for coronary artery bypass graft. The patient underwent CABG x4 with TORRES to the proximal LAD, saphenous vein graft to the distal LAD, saphenous vein graft to the OM2 and saphenous vein graft to the PDA on 12/28/[address] Isac Ames. (He had intra-aortic balloon pump placed in the OR and 2D echocardiogram demonstrated good function at the end of the procedure and and appeared to have ST elevations in the OR and the apex was dyskinetic after bypassing the main LAD and therefore the distal LAD vein graft was placed). The patient is currently on BiPAP, he developed a cold left foot with loss of pulses. A left lower extremity arterial Doppler study 12/31/2024 demonstrated monophasic waveforms throughout the left lower extremity and no flow in the left anterior tibial and dorsalis pedis arteries were noted. The Intra-aortic balloon pump was discontinued today and the patient will return to the OR for exploration of the left lower extremity by Dr. Ames. He has been hypotensive requiring pressor support with vasopressin, epinephrine and currently on dobutamine and Lasix drip. He has developed acute renal failure with a rise in BUN and creatinine to 30 and 4.3 today. AST remains elevated at 695 and ALT of 341. Physical Examination: GENERAL: Currently on BiPAP. HEAD: Normal with no signs of head trauma. EYES: PERRLA, EOMI, conjunctiva and sclera normal. NECK: Supple without JVD. There is no tenderness, lymphadenopathy, or masses. No thyromegaly. Normal carotid upstrokes without bruits. LUNGS: Clear breath sounds anteriorly with upper airway noise from BiPAP. HEART: Normal rate and rhythm. Normal S1 and S2 without murmurs, gallop or rub. VASC: Peripheral pulses are nonpalpable. His feet are cold to touch. The right dorsalis and right posterior tibial pulse are present with Doppler. The left dorsalis pedis and posterior tibial pulse are absent with Doppler. EXT: No clubbing, cyanosis, trace of pedal edema. Laboratory: Hematology Labs: Test 12/31/24 04:21 Range/Units White Blood Count 7.6 4.8-10.8 K/uL Red Blood Count 3.12 L 4.50-6.20 MIL/uL Hemoglobin 7.6 L 14.0-18.0 g/dL Hematocrit 24.5 L 42-54 % Mean Corpuscular Volume 78.5 L 79-99 fL Mean Corpuscular Hemoglobin 24.4 L 27.0-33.0 pg Mean Corpuscular Hemoglobin Concent 31.0 L 32.0-36.0 g/dL Red Cell Distribution Width 22.3 H 11.0-15.5 % Platelet Count 181 130-400 K/uL Mean Platelet Volume 10.3 7.5-10.5 fL Nucleated Red Blood Cells 1.4 H 0.0-0.19 % Platelet Morphology PLT CLUMPS PRESENT Red Blood Cell Morphology ANISO 1+ Chemistry Labs: Test 12/31/24 04:21 12/30/24 09:31 12/30/24 04:45 12/30/24 04:41 Range/Units Sodium Level 145 136-145 mmol/L Potassium Level 4.6 3.5-5.1 mmol/L Chloride Level 107 101-111 mmol/L Carbon Dioxide Level 29 21-32 mmol/L Blood Urea Nitrogen 30 H 7-18 mg/dL Creatinine 4.3 H 0.5-1.3 mg/dL Glomerular Filtration Rate Calc 15 >90 mL/min Random Glucose 145 #H 70-105 mg/dL Total Calcium 9.4 8.5-10.1 mg/dL Phosphorus Level 6.3 H 2.5-4.9 mg/dL Magnesium Level 2.10 1.80-2.40 mg/dL Total Bilirubin 0.4 0.2-1.0 mg/dL Aspartate Amino Transf (AST/SGOT) 695 *H 10-37 U/L Alanine Aminotransferase (ALT/SGPT) 341 #H 12-78 U/L Alkaline Phosphatase 96 # 50-136 U/L Total Protein 4.8 L 6.0-8.3 g/dL Albumin 1.7 L 3.5-5.0 g/dL Ammonia < 10 L 11-32 umol/L Whole Blood Glucose 119 H 70-110 MG/DL Direct Bilirubin 0.2 0.0-0.3 mg/dL Test 12/29/24 20:20 Range/Units Ionized Calcium 1.13 L 1.15-1.33 MMOL/L Diagnostics / Radiology: 2D echocardiogram 12/27/2024 demonstrated an LVEF of 50-55% and stage I diastolic dysfunction, moderate concentric LVH. There was also inferobasal hypokinesis and moderately to severely reduced apical sparing GLS-12% Impression and Plan: Non ST segment elevation OR Multivessel coronary artery disease Status post CABG x4 with TORRES to the proximal LAD, saphenous vein graft to the distal LAD, saphenous vein graft to the OM2 and saphenous vein graft to the PDA on 12/28/[address] Isac Ames, with intraoperative ST-elevation: -will plan to continue antiplatelet therapy and add clopidogrel when stable -the patient has required continued vasopressor support -we will plan on a limited 2D echocardiogram to reassess LV function Status post insertion of intra-aortic balloon pump intraoperatively 12/28/2024: Eevidence of occluded left posterior tibial and dorsalis pedis artery by arterial Doppler study 12/31/2024, with loss of pulse and cold foot to the left lower extremity: -patient has been taken to the OR for exploration of the left lower extremity Postoperative renal failure with BUN and creatinine rising to 30 and 4.: -he has been initiated on dobutamine and Lasix drip trial, management per CT surgeon at this time Elevated LFTs: -hold statin therapy for now Anemia with a hemoglobin of 7.1 on initial evaluation status post EGD with no acute findings or active bleeding Hypertension PHYSICIAN ATTESTATION OF PHYSICIAN TRANSIT WORKER DOCUMENTATION: I attest that I was physically present for the matthews portions of the service and evaluated the patient with the Physician Territory Sales Manager, and I reviewed and discussed the case with the Physician Territory Sales Manager and made modifications to the Physician Territory Sales Manager's findings and plans of care as documented above TERRANCE ALVAREZ Dec 31, 2024 12:40 NARAYAN ALVAREZ MD Jan 01, 2025 12:59
[2024-12-31] MEDS ORDERED: LIDOCAINE PF 100MG/5ML (2%) SYRINGE 5ML ONE (12:42)
[2024-12-31] MEDS ORDERED: SUCCINYLCHOLINE CHLORIDE 20 MG/ML 10 ML VIAL ONE (12:43)
[2024-12-31] MEDS ORDERED: GLYCOPYRROLATE 0.2 MG/ML 5 ML VIAL ONE (12:43)
[2024-12-31] MEDS ORDERED: NEOSTIGMINE METHYLSULFATE 1MG/ML IV ONE (12:43)
[2024-12-31] MEDS ORDERED: ETOMIDATE 20MG VIAL ONE (12:47)
[2024-12-31] MEDS ORDERED: HEParin-NS 1,000 UNIT/500 ML 500 ML IV ONE (12:53)
[2024-12-31 12:55] LABS: NUCLEATED RED BLOOD CELLS 2.4 % (0.0-0.19); PLATELET COUNT (AUTO) 189.0 K/uL (130-400); RED BLOOD CELL COUNT(AUTO) 3.07 MIL/uL (4.50-6.20); RED CELL DISTRIBUTION WIDTH 22.8 % (11.0-15.5); WHITE BLOOD COUNT (AUTO) 9.2 K/uL (4.8-10.8)
[2024-12-31 13:12] LABS: ABG BASE EXCESS -1.8 mmol/L (-2.0-3.0); ABG HCO3 22.5 mmol/L (21.0-28.0); ABG OXYGEN SATURATION 94.1 % (94.0-98.0); ABG PCO2 36 mmHg (35-48); ABG PH 7.417 (7.350-7.450); CARBON MONOXIDE 0.2 % (0.5-1.5); DEVICE COMMENT ALINEOMAR; PO2, ARTERIAL BG 76.2 mmHg (83.0-108.0); TEMPERATURE, CELSIUS BG 37.0 CELSIUS (35.5-37.0); VENT MODE, BG OR (ROOM AIR)
[2024-12-31] MEDS ORDERED: ALBUTEROL INHALER 90MCG/INH IH ONE (13:33)
[2024-12-31 13:46] LABS: ABG BASE EXCESS -0.2 mmol/L (-2.0-3.0); ABG HCO3 23.0 mmol/L (21.0-28.0); ABG OXYGEN SATURATION 95.5 % (94.0-98.0); ABG PCO2 32 mmHg (35-48); ABG PH 7.478 (7.350-7.450); CARBON MONOXIDE 0.3 % (0.5-1.5); DEVICE COMMENT ALINEOMAR; PO2, ARTERIAL BG 80.4 mmHg (83.0-108.0); TEMPERATURE, CELSIUS BG 37.0 CELSIUS (35.5-37.0); VENT MODE, BG OR (ROOM AIR)
--- NOTE | 2024-12-31 14:05 | NUR ---
Patient back to ICU 215 s/p left lower extremity thrombectomy and intubation. Patient continues on Vasopressin, Dobutrex, and Epinephrine drip. Patient's pupils reactive and equal. Per Dr. Ames, administer second unit of PRBC, warm up left lower extremity, discontinue chest tube if low output, if still no pulse to left foot then start argatroban at 0.5 mcg.
--- NOTE | 2024-12-31 14:08 | PN ---
FOLLOWUP PROGRESS NOTE SUBJECTIVE: A 54-year-old male status post coronary artery bypass graft surgery. The patient has had acute renal failure postoperatively. Urine output has been maintained. The patient's workup is ongoing per Cardiovascular Surgery and he is being seen for all of the above. He remains on Lasix. REVIEW OF SYSTEMS: He is really unable to give any review of systems as the patient is on BiPAP. PHYSICAL EXAMINATION: VITAL SIGNS: Blood pressure is 151/68, pulse 90s. Afebrile. GENERAL: He is a chronically ill male, older than appearing. HEENT: Head is atraumatic. Pupils are equal, roving to light. Oropharynx is without exudate. Nares clear. NECK: There is no JVP. There is no thyromegaly, no mass. CARDIOVASCULAR: Regular. There is no S3 or S4 gallop. LUNGS: Coarse with equal thoracic movement. ABDOMEN: Soft, nondistended, and nontender. EXTREMITIES: Reveal no clubbing, no cyanosis. NEUROLOGICAL: He is awake. He is at his baseline. LABORATORY DATA: Sodium 141, potassium 4.6, BUN 30, creatinine 4.3, hemoglobin 7.6, hematocrit 24. IMPRESSION: * Acute on chronic renal failure. * Coronary artery disease, status post CABG. * Respiratory failure. * Anemia. PLAN: The patient's workup is ongoing per Cardiovascular Surgery. The patient's hyperkalemia is much improved with the Lokelma. He will be given additional dose of IV iron for the anemia. We will continue to follow closely. Urine output has been maintained with the diuretics. There is no acute need for any form of renal replacement therapy at this time. All labs will be repeated in the morning. TID: [id number] RECEIPT: [id number]
[2024-12-31 14:28] LABS: ABG BASE EXCESS -2.3 mmol/L (-2.0-3.0); ABG HCO3 20.6 mmol/L (21.0-28.0); ABG OXYGEN SATURATION 97.7 % (94.0-98.0); ABG PCO2 29 mmHg (35-48); ABG PH 7.474 (7.350-7.450); CARBON MONOXIDE 0.3 % (0.5-1.5); DEVICE COMMENT ALINE; PO2, ARTERIAL BG 113.9 mmHg (83.0-108.0); TEMPERATURE, CELSIUS BG 37.0 CELSIUS (35.5-37.0); VENT MODE, BG SIMV (ROOM AIR)
--- NOTE | 2024-12-31 14:40 | NUR ---
1155 per nurse Yoly hold PT evaluation due to recent balloon pump removal.
--- NOTE | 2024-12-31 15:30 | NUR ---
Left posterior tibialis pulse obtained via doppler. Dr. Ames made aware.
[2024-12-31 15:39] LABS: ABG BASE EXCESS -1.9 mmol/L (-2.0-3.0); ABG HCO3 21.2 mmol/L (21.0-28.0); ABG OXYGEN SATURATION 97.9 % (94.0-98.0); ABG PCO2 30 mmHg (35-48); ABG PH 7.465 (7.350-7.450); CARBON MONOXIDE 0.3 % (0.5-1.5); DEVICE COMMENT ALINE; PO2, ARTERIAL BG 117.4 mmHg (83.0-108.0); TEMPERATURE, CELSIUS BG 37.0 CELSIUS (35.5-37.0); VENT MODE, BG SIMV, RAQUELRN (ROOM AIR)
--- NOTE | 2024-12-31 15:48 | HMCIMG ---
EXAM: CR Chest, 2 View. CLINICAL HISTORY: s/p intubation COMPARISON: 12/31/2024 at 3:51 AM FINDINGS: There is an endotracheal tube noted with its tip approximately 4 cm above the buddy. There is an enteric tube noted with its tip in the stomach. There is a right sided jugular sheath in place. LUNGS: Again noted are diffuse bilateral airspace opacities which are worse when compared with the prior exam. PLEURAL SPACES: No pleural effusion or pneumothorax. MEDIASTINUM: The cardiomediastinal silhouette is within normal limits. BONES: No acute osseous abnormality. IMPRESSION: Satisfactory position of the support lines and tubes. Diffuse bilateral airspace opacities which are worse when compared with the prior exam. /Craig
--- NOTE | 2024-12-31 17:28 | NUR ---
Dr. Ames communication Left dorsalis pedis pulse still not present via doppler, PTT obtained result 73.8. Dr. Ames made aware and clarified Argatroban infusion order. Per MD, wait until PTT is back to normal, start Argatroban at 0.5 mcg, and repeat PTT every 4 hours.
--- NOTE | 2024-12-31 18:00 | NUR ---
Left dorsalis pedis pulse obtained via doppler.
--- NOTE | 2024-12-31 18:20 | PN ---
[facility] PROGRESS NOTE Date Patient Seen: Dec 31, 2024 Time of Visit: 18:12 Supervising Physician: Dr Jaramillo Primary Care Physician: [ ] Outpatient Specialists: [ ] Inpatient Consults: [ ] PROBLEM LIST: Acute left lower extremity ischemia. Left LE Arterial occlusion Non-STEMI. Multi-vessel coronary artery disease status post CABG 12/28/2024 Acute metabolic encephalopathy - ,multifactorial Mild ischemic cardiomyopathy with LVEF 45-50 by left heart catheterization. Hypertension. Anemia. ERICK with hyperkalemia INTERVAL HISTORY: Patient was seen and examined, all labs and imaging have been reviewed. This morning ultrasound lower extremities reveals no flow to the left anterior tibial artery. Cardiothoracic surgery's notified and planning to take patient for removal of the balloon pump and possible thrombectomy. Patient remains on Precedex. Mittens. Continues on Dobutrex, epi and vaso Balloon pump at 1-3 Chest tube-130/12 Urine output 600/12 Potassium in normal ranges Plan: Continuing to monitor patient's labs, potassium levels Follow patient postprocedure, neurovascular checks to lower extremities Follow CT surgeon recs I&Os, chest tube, urine output PT/OT when ready Weaning pressors per CT surgeon Pending CK levels, concern for rhabdomyolysis REVIEW OF SYSTEMS: 12 point ROS reviewed with patient. Pertinent positives mentioned above. Otherwise negative. PHYSICAL EXAM: GENERAL: altered, on precedex HEENT: EOMI, Sclera non icteric, moist mucosa NECK: Supple, no JVD, trachea midline LUNGS: Chest tubes in place, HEART: Regular rate and rhythm. Normal S1 and S2, without murmurs ABD: Abdomen soft, nontender. Bowel sounds present EXT: No clubbing cyanosis or edema NEURO: mittens Vital Signs (last 8hr) Date Time Temp Pulse Resp B/P (MAP) Pulse Ox O2 Delivery O2 Flow Rate FiO2 12/31/24 17:30 84 12 169/99 (122) 100 140/100 (113) 12/31/24 17:15 85 12 182/105 (130) 100 12/31/24 17:00 84 12 174/101 (125) 99 153/108 (123) 12/31/24 16:45 84 15 173/99 (123) 99 12/31/24 16:30 89 13 180/100 (126) 100 152/105 (121) 12/31/24 16:15 87 12 176/96 (122) 100 12/31/24 16:00 97.0 Ventilator 60 12/31/24 16:00 92 12 187/100 (129) 99 151/101 (118) 12/31/24 15:45 93 12 200/104 (136) 99 12/31/24 15:30 91 13 203/109 (140) 99 146/100 (115) 12/31/24 15:15 90 12 184/103 (130) 95 12/31/24 15:00 79 12 148/84 (105) 150/101 (117) 12/31/24 14:45 83 12 151/83 (105) 12/31/24 14:30 82 13 141/78 (99) 126/83 (97) 12/31/24 14:29 80 12/31/24 14:16 77 100 12/31/24 14:15 79 13 178/89 (118) 99 12/31/24 12:00 92 18 12/31/24 11:52 95 20 60 12/31/24 11:50 92 21 126/59 (81) 100 12/31/24 11:45 92 21 145/65 (91) 100 12/31/24 11:45 97.5 BIPAP 60 12/31/24 11:30 95 14 160/85 (110) 100 111/84 (93) 12/31/24 11:15 93 19 99/75 (83) 99 12/31/24 11:00 88 17 123/79 (94) 100 97/64 (75) 12/31/24 10:45 86 19 119/91 (100) 100 12/31/24 10:40 151/68 12/31/24 10:30 91 18 166/85 (112) 98 174/81 (112) 12/31/24 10:15 89 29 160/156 (157) 100 LABS: Hematology Labs: Test 12/31/24 12:41 12/31/24 04:21 Range/Units White Blood Count 9.2 4.8-10.8 K/uL Red Blood Count 3.07 L 4.50-6.20 MIL/uL Hemoglobin 7.7 L 14.0-18.0 g/dL Hematocrit 24.3 L 42-54 % Mean Corpuscular Volume 79.2 79-99 fL Mean Corpuscular Hemoglobin 25.1 L 27.0-33.0 pg Mean Corpuscular Hemoglobin Concent 31.7 L 32.0-36.0 g/dL Red Cell Distribution Width 22.8 H 11.0-15.5 % Platelet Count 189 130-400 K/uL Mean Platelet Volume 10.8 H 7.5-10.5 fL Nucleated Red Blood Cells 2.4 H 0.0-0.19 % Platelet Morphology PLT CLUMPS PRESENT Red Blood Cell Morphology ANISO 1+ Chemistry Labs: Test 12/31/24 12:41 12/31/24 04:21 12/30/24 09:31 12/30/24 04:45 Range/Units Total Creatine Kinase 549 *H 21-232 U/L Sodium Level 145 136-145 mmol/L Potassium Level 4.6 3.5-5.1 mmol/L Chloride Level 107 101-111 mmol/L Carbon Dioxide Level 29 21-32 mmol/L Blood Urea Nitrogen 30 H 7-18 mg/dL Creatinine 4.3 H 0.5-1.3 mg/dL Glomerular Filtration Rate Calc 15 >90 mL/min Random Glucose 145 #H 70-105 mg/dL Total Calcium 9.4 8.5-10.1 mg/dL Phosphorus Level 6.3 H 2.5-4.9 mg/dL Magnesium Level 2.10 1.80-2.40 mg/dL Total Bilirubin 0.4 0.2-1.0 mg/dL Aspartate Amino Transf (AST/SGOT) 695 *H 10-37 U/L Alanine Aminotransferase (ALT/SGPT) 341 #H 12-78 U/L Alkaline Phosphatase 96 # 50-136 U/L Total Protein 4.8 L 6.0-8.3 g/dL Albumin 1.7 L 3.5-5.0 g/dL Ammonia < 10 L 11-32 umol/L Whole Blood Glucose 119 H 70-110 MG/DL Test 12/30/24 04:41 12/29/24 20:20 Range/Units Direct Bilirubin 0.2 0.0-0.3 mg/dL Ionized Calcium 1.13 L 1.15-1.33 MMOL/L Coagulation Labs: Test 12/31/24 16:24 Range/Units Activated Partial Thromboplast Time 73.8 H 26.3-35.5 SEC DIAGNOSTICS / RADIOLOGY RESULTS: [ ] PLAN NEURO: Minimize central acting medications as possible. Fall Precautions. Well lighted room through the day and minimize interruptions through the night to prevent acute delirium. PULMONARY: Supplemental 02 as needed Titrate Fio2 to keep Spo2 > or = 90% DuoNebs and CPT as needed IS hourly while awake for pulmonary hygiene Out of bed to chair as tolerated VAP Bundle Vent/BIPAP Settings: [ ] Driving pressure: [ ] P Plat: [ ] Static C: [ ] Static R: [ ] P/F Ratio: [ ] CARDIOVASCULAR: Follow hemodynamics. Titrate vasopressor to keep MAP >65 or systolic blood pressure >95mmHg DIPS: [ ] LINES: [ ] GI & NUTRITION: Continue nutritional support Aspirations precautions Prokinetic agents and laxatives as needed KIDNEYS & ELECTROLYTES: Strict monitoring of intake and output Daily weights Avoid nephrotoxic agents Monitor electrolytes and replace as needed Goal urine output of 30mL/hr or 0.5mL/kg/hr Urine output: [ ] Fluid Balance: [ ] ENDOCRINE: Maintain blood glucose between 100-180 at all times. Insulin sliding scale for blood glucose management INFECTIOUS DISEASE: Trend temperature. Quiñones-culture if febrile. Micro: [ ] Antibiotics: [ ] HEMATOLOGY & COAGULATION: Monitor H&H. Keep Hgb > 7 Transfuse 1 unit of PRBC for Hgb < 7 Transfuse 1 pack of platelets of platelets < 20, 000 Watch for any signs and symptoms of bleeding SKIN: Pressure ulcer prevention per facility protocol Rehab: PT/OT Prophylaxis: GI: [ ] DVT: [ ] Code Status: Full Resuscitation Disposition: [ ] Other: Total patient Critical Care time 60 minutes, time excluded any procedures. Case was discussed and seen with my supervising physician. The above plan was formulated and agreed upon. CHEYENNE HENSON Dec 31, 2024 18:19 TARA MEEHAN MD Jan 01, 2025 07:39
[2024-12-31 21:58] LABS: ABG BASE EXCESS 1.5 mmol/L (-2.0-3.0); ABG HCO3 23.9 mmol/L (21.0-28.0); ABG OXYGEN SATURATION 98.2 % (94.0-98.0); ABG PCO2 30 mmHg (35-48); ABG PH 7.517 (7.350-7.450); CARBON MONOXIDE 0.3 % (0.5-1.5); PO2, ARTERIAL BG 127.4 mmHg (83.0-108.0); TEMPERATURE, CELSIUS BG 37.0 CELSIUS (35.5-37.0); VENT MODE, BG SIMV PS 10 (ROOM AIR)
--- NOTE | 2024-12-31 22:08 | NUR ---
Patient update Dr. Ames updated on pt status. Informed MD pt is still very drowsy after procedure and remains intubated; pt opening eyes intermittently and not following commands. Pt not on sedation at this time. Pt PTT level slightly elevated at 39.8, argatroban on hold until ptt is normal. Pedal and post tibial pulses are present via doppler. Informed MD of latest ABG results. Per Dr. Ames let patient wake up slowly. May start patient on argatroban drip at 0.5 mcg/kg/min. Decrease respiratory rate to 6.
[2024-12-31] MEDS: NITROGLYCERIN 50MG/D5W 250ML 1 BOT ONE (23:36)
[2024-12-31 23:44] LABS: ABG BASE EXCESS -1.2 mmol/L (-2.0-3.0); ABG HCO3 25.0 mmol/L (21.0-28.0); ABG OXYGEN SATURATION 91.5 % (94.0-98.0); ABG PCO2 48 mmHg (35-48); ABG PH 7.333 (7.350-7.450); CARBON MONOXIDE 0.3 % (0.5-1.5); PO2, ARTERIAL BG 71.8 mmHg (83.0-108.0); TEMPERATURE, CELSIUS BG 37.0 CELSIUS (35.5-37.0); VENT MODE, BG SIMV PS 10 (ROOM AIR)
[2025-01-01] VITALS (119 sets, daily range): BP systolic 95–180; BP diastolic 47–108; PULSE 81–103; RESP 13–50; TEMP 98.2–99.9; O2SAT 98–100
[2025-01-01 01:16] LABS: ABG BASE EXCESS 1.1 mmol/L (-2.0-3.0); ABG HCO3 24.2 mmol/L (21.0-28.0); ABG OXYGEN SATURATION 97.9 % (94.0-98.0); ABG PCO2 33 mmHg (35-48); ABG PH 7.483 (7.350-7.450); CARBON MONOXIDE 0.3 % (0.5-1.5); PO2, ARTERIAL BG 117.7 mmHg (83.0-108.0); TEMPERATURE, CELSIUS BG 37.0 CELSIUS (35.5-37.0); VENT MODE, BG SIMV PS 10 (ROOM AIR)
[2025-01-01 02:41] LABS: NUCLEATED RED BLOOD CELLS 2.5 % (0.0-0.19); PLATELET COUNT (AUTO) 171.0 K/uL (130-400); RED BLOOD CELL COUNT(AUTO) 3.85 MIL/uL (4.50-6.20); RED CELL DISTRIBUTION WIDTH 21.1 % (11.0-15.5); WHITE BLOOD COUNT (AUTO) 7.7 K/uL (4.8-10.8)
[2025-01-01 02:54] LABS: CREATININE 5.1 mg/dL (0.5-1.3); GLOMERULAR FILTR. RATE CALC 13.0 mL/min (>90); GLUCOSE,RANDOM 159.0 mg/dL (70-105); SODIUM SERUM 145.0 mmol/L (136-145); UREA NITROGEN, BLOOD 35.0 mg/dL (7-18)
--- NOTE | 2025-01-01 05:19 | OP ---
DATE OF PROCEDURE: 12/31/2024 PREOPERATIVE DIAGNOSIS: Status post CABG, intra-aortic balloon pump. PROCEDURES PERFORMED: Removal of intra-aortic balloon pump early in the morning, thrombectomy, and fasciotomy. SURGEON: Isac Ames MD PUBLISHING MANAGER: Sean. ANESTHESIOLOGIST: Dr. Leigh. COMPLICATIONS: None. DISPOSITION: Stable. FINDINGS: There was a clot in left femoral artery as well as the profunda. This clot was removed with voodoo of flow. INDICATIONS: The patient had been confused, extubated for several days after a CABG, had an intra-aortic balloon pump that was going to be removed today. I got a call in the morning that the patient no longer had palpable pulses had through the night. Ultrasound demonstrates no flow beyond the popliteal artery and only collateral flow. Decision is to proceed with removal of the intra-aortic balloon pump, repeat the ultrasound, and proceed with thrombectomy. FINDINGS AT THE TIME OF SURGERY: There was clot in the femoral artery and excellent inflow upon removal. There was a clot in the profunda, which was removed as well. catheter was able to be passed all the way to the ankle and through the posterior tibial artery. There was no clot in the distal portion of the leg. According to the nurse's communication, the patient was still moving his foot up too early in this morning. After removal of the clot, we had excellent backflow from the profunda and excellent forward flow. Posterior tibial Doppler pulses were found at the end of the procedure. DESCRIPTION OF PROCEDURE IN DETAIL: With the patient in the supine position after adequate induction of general endotracheal anesthesia, preoperative intravenous antibiotics, percutaneous arterial and venous lines. Surgeon-directed timeout utilizing 2 patient identifiers followed by a transverse incision in the groin exposing the femoral artery and femoral vein. The patient was heparinized with 5000 units and thrombectomy was performed through a transverse incision on the femoral artery. Obtaining clot from the external iliac artery until we had excellent inflow. The artery was then clamped. A vessel loop was placed around the profunda, which has excellent backflow upon removal of the clot the profunda femoris. was advanced into the posterior tibial artery at the level of the ankle and withdrew without any clot in this area. The incision was repaired with 5-0 Prolene and the flow restored. Closure with 2-0 Vicryl and 3-0 Monocryl. The patient was transferred to the ICU in stable condition. TID: [id number] RECEIPT: [id number]
[2025-01-01] MEDS: NITROGLYCERIN 50MG/D5W 250ML 250 BOT IV PRN (05:55)
[2025-01-01 08:52] LABS: ABG BASE EXCESS 3.5 mmol/L (-2.0-3.0); ABG HCO3 25.9 mmol/L (21.0-28.0); ABG OXYGEN SATURATION 95.6 % (94.0-98.0); ABG PCO2 32 mmHg (35-48); ABG PH 7.529 (7.350-7.450); CARBON MONOXIDE 0.2 % (0.5-1.5); PO2, ARTERIAL BG 79.0 mmHg (83.0-108.0); TEMPERATURE, CELSIUS BG 37.0 CELSIUS (35.5-37.0); VENT MODE, BG SIMV-VC PS10 (ROOM AIR)
--- NOTE | 2025-01-01 09:00 | NUR ---
Respiratory assessment per CV protocol Patient awake, alert, and following commands. ABG drawn, leak assessed and present by RT, NIF -41, RSBI 65. Dr Ames updated on patient's status. Per MD, Okay to extubate with steroid administration.
--- NOTE | 2025-01-01 09:20 | NUR ---
Extubation Patient extubated successfully by RT Anam, oral care performed prior to and after extubation. Patient placed on aerosol mask at 40%. Patient stable. No s/s of respiratory distress noted. Patient calm in bed, following commands.
--- NOTE | 2025-01-01 11:19 | PN ---
[facility] CARDIOLOGY PROGRESS NOTE Date Patient Seen: Jan 01, 2025 Time of Visit: 11:10 Interval History: This is a 54-year-old Latin-[place]azi male with no significant past medical history was a transfer for admission hospital sustained a non ST segment eleva tion SD. He was also found to have anemia with a hemoglobin of 7.1 and underwent an EGD which was negative for any active bleeding ulcers. He underwent further assessment with a cardiac catheterization demonstrating multivessel coronary artery disease and was transferred for coronary artery bypass graft. The patient underwent CABG x4 with TORRES to the proximal LAD, saphenous vein graft to the distal LAD, saphenous vein graft to the OM2 and saphenous vein graft to the PDA on 12/28/[address] Isac Ames. (He had intra-aortic balloon pump placed in the OR and 2D echocardiogram demonstrated good function at the end of the procedure and and appeared to have ST elevations in the OR and the apex was dyskinetic after bypassing the main LAD and therefore the distal LAD vein graft was placed). He developed a cold left foot with loss of pulses the morning of 12/31/2024. A left lower extremity arterial Doppler study 12/31/2024 demonstrated monophasic waveforms throughout the left lower extremity and no flow in the left anterior tibial and dorsalis pedis arteries were noted. The Intra-aortic balloon pump was discontinued. He was taken to the OR 12/31/2024 and underwent thrombectomy with removal of clot from the left femoral artery as well as the profunda. He was extubated early this morning. He has developed acute renal failure with BUN rising today that 35 and 5.1. He was initiated on dobutamine and Lasix drip. He is on O2 via facemask. The left lower extremity is warm but the toes are purple and discolored today. He is able to move his feet and toes without difficulty. He is follows commands. Physical Examination: GENERAL: Currently on BiPAP. HEAD: Normal with no signs of head trauma. EYES: PERRLA, EOMI, conjunctiva and sclera normal. NECK: Supple without JVD. There is no tenderness, lymphadenopathy, or masses. No thyromegaly. Normal carotid upstrokes without bruits. LUNGS: Clear breath sounds anteriorly with upper airway noise from O2 via facemask HEART: Normal rate and rhythm. Normal S1 and S2 without murmurs, gallop or rub. VASC: Peripheral pulses are nonpalpable. The toes in the left foot are purple and discolored but warm to touch. The pulse to the left dorsalis pedis is by Doppler of the level of the ankle. EXT: No clubbing, cyanosis, trace of pedal edema. Laboratory: Hematology Labs: Test 01/01/25 02:35 12/31/24 04:21 Range/Units White Blood Count 7.7 4.8-10.8 K/uL Red Blood Count 3.85 #L 4.50-6.20 MIL/uL Hemoglobin 9.8 L 14.0-18.0 g/dL Hematocrit 29.9 L 42-54 % Mean Corpuscular Volume 77.7 L 79-99 fL Mean Corpuscular Hemoglobin 25.5 L 27.0-33.0 pg Mean Corpuscular Hemoglobin Concent 32.8 32.0-36.0 g/dL Red Cell Distribution Width 21.1 H 11.0-15.5 % Platelet Count 171 130-400 K/uL Mean Platelet Volume 10.5 7.5-10.5 fL Nucleated Red Blood Cells 2.5 H 0.0-0.19 % Platelet Morphology PLT CLUMPS PRESENT Red Blood Cell Morphology ANISO 1+ Chemistry Labs: Test 01/01/25 02:35 12/31/24 20:12 12/31/24 16:24 12/31/24 04:21 Range/Units Sodium Level 145 136-145 mmol/L Potassium Level 4.3 3.5-5.1 mmol/L Chloride Level 105 101-111 mmol/L Carbon Dioxide Level 29 21-32 mmol/L Blood Urea Nitrogen 35 H 7-18 mg/dL Creatinine 5.1 H 0.5-1.3 mg/dL Glomerular Filtration Rate Calc 13 >90 mL/min Random Glucose 159 H 70-105 mg/dL Total Calcium 9.3 8.5-10.1 mg/dL Whole Blood Glucose 119 H 70-110 MG/DL Total Creatine Kinase 628 *H 21-232 U/L Phosphorus Level 6.3 H 2.5-4.9 mg/dL Magnesium Level 2.10 1.80-2.40 mg/dL Total Bilirubin 0.4 0.2-1.0 mg/dL Aspartate Amino Transf (AST/SGOT) 695 *H 10-37 U/L Alanine Aminotransferase (ALT/SGPT) 341 #H 12-78 U/L Alkaline Phosphatase 96 # 50-136 U/L Total Protein 4.8 L 6.0-8.3 g/dL Albumin 1.7 L 3.5-5.0 g/dL Coagulation Labs: Test 01/01/25 07:19 Range/Units Activated Partial Thromboplast Time 81.7 H 26.3-35.5 SEC Diagnostics / Radiology: 2D echocardiogram 12/27/2024 demonstrated an LVEF of 50-55% and stage I diastolic dysfunction, moderate concentric LVH. There was also inferobasal hypokinesis and moderately to severely reduced apical sparing GLS-12% Impression and Plan: Non ST segment elevation SD Multivessel coronary artery disease Status post CABG x4 with TORRES to the proximal LAD, saphenous vein graft to the distal LAD, saphenous vein graft to the OM2 and saphenous vein graft to the PDA on 12/28/[address] Isac Ames, with intraoperative ST-elevation: -will plan to continue antiplatelet therapy and add clopidogrel when stable -vasopressor therapy has been discontinued and currently continues on dobutamine and Lasix -repeat 2D echocardiogram to reassess LV function Status post insertion of intra-aortic balloon pump intraoperatively 12/28/2024: Loss of pulse to the left leg prompting discontinuation of intra-aortic balloon pump 12/31/2024: Acute thrombosis of left femoral artery, status post clot evacuation to the left femoral artery and profunda 12/31/[address] Isac Ames: -continue management per Dr. Ames Postoperative renal failure with BUN and creatinine rising further to 35 and 5.1 on 01/01/2025 -he has been initiated on dobutamine and Lasix drip trial, management per CT surgeon at this time Elevated LFTs: -hold statin therapy for now Anemia with a hemoglobin of 7.1 on initial evaluation status post EGD with no acute findings or active bleeding Hypertension PHYSICIAN ATTESTATION OF PHYSICIAN LINE WALKER DOCUMENTATION: I attest that I was physically present for the matthews portions of the service and evaluated the patient with the Physician System Integration Engineer, and I reviewed and discussed the case with the Physician System Integration Engineer and made modifications to the Physician System Integration Engineer's findings and plans of care as documented above TERRANCE ALVAREZ [facility] Jan 01, 2025 11:19 NARAYAN ALVAREZ MD Jan 01, 2025 12:59
[2025-01-01 11:37] LABS: ABG BASE EXCESS 1.7 mmol/L (-2.0-3.0); ABG HCO3 24.2 mmol/L (21.0-28.0); ABG OXYGEN SATURATION 97.1 % (94.0-98.0); ABG PCO2 31 mmHg (35-48); ABG PH 7.512 (7.350-7.450); CARBON MONOXIDE 0.3 % (0.5-1.5); PO2, ARTERIAL BG 99.9 mmHg (83.0-108.0); TEMPERATURE, CELSIUS BG 37.0 CELSIUS (35.5-37.0); VENT MODE, BG CAFM (ROOM AIR)
--- NOTE | 2025-01-01 11:49 | HMCIMG ---
EXAM: CR Chest, 1 View. CLINICAL HISTORY: s/p CABG COMPARISON: Study dated 12/31. FINDINGS: There is an endotracheal tube noted with its tip approximately 3.8 cm above the buddy. There is an enteric tube noted with its tip in the stomach. There is a right-sided jugular sheath in the superior vena cava. LUNGS: Again noted are diffuse bilateral airspace opacities, which show an interval decrease when compared with the prior exam. PLEURAL SPACES: Mild left-sided pleural effusion. No evidence of pneumothorax. MEDIASTINUM: Cardiac size and mediastinal contours are within normal limits. BONES: No acute osseous abnormality. IMPRESSION: 1. No acute cardiopulmonary findings. 2. Appropriately positioned endotracheal tube, enteric tube, and right jugular sheath. 3. Improving bilateral airspace opacities. 4. New finding of mild left pleural effusion. /Effie
--- NOTE | 2025-01-01 12:24 | PN ---
FOLLOWUP PROGRESS NOTE SUBJECTIVE: A 54-year-old male who has had a prolonged course. The patient was initially admitted with coronary artery disease. The patient did undergo coronary artery bypass graft surgery. He has had acute renal failure in the hospital. Creatinine is elevated. The patient has been successfully extubated. He remains on the diuretics and urine output is noted. The patient's balloon pump has been discontinued and he is being seen as a followup visit for all of the above. REVIEW OF SYSTEMS: CONSTITUTIONAL: He is feeling improved. HEENT: No change in vision. No change in hearing. CARDIOVASCULAR: There is no current chest pain or palpitations. PULMONARY: He has been extubated. GASTROINTESTINAL: The patient will be seen by Speech Therapy. MUSCULOSKELETAL: Complaints of weakness. PHYSICAL EXAMINATION: VITAL SIGNS: Blood pressure 113/55, pulse in the 90s, afebrile. GENERAL: He is a chronically ill male, much older than appearing. HEENT: Head is atraumatic. Pupils are equal, roving to light. Oropharynx is without exudate. Nares clear. NECK: There is no JVP. There is no thyromegaly. No masses. CARDIOVASCULAR: Regular. There is no S3 or S4 gallop. LUNGS: Coarse with equal thoracic movement. ABDOMEN: Soft, nondistended, and nontender. EXTREMITIES: There is no clubbing or cyanosis. NEUROLOGICAL: He is awake. He is alert. He is oriented x 3. LABORATORY DATA: BUN 35, creatinine is 5. Hemoglobin 9.8, hematocrit 29. IMPRESSION: * Acute renal failure. * Coronary artery disease, status post coronary artery bypass graft. * Respiratory failure, now extubated. * Diabetes mellitus. PLAN: The patient's creatinine continues to be elevated. The patient is responding to the diuretics. We will continue to follow the chemistries closely. There is no acute need for renal replacement therapy at this time. Workup is ongoing per Cardiovascular Surgery. All labs will be repeated in the morning. TID: [id number] RECEIPT: [id number]
--- NOTE | 2025-01-01 12:56 | PN ---
[facility] PROGRESS NOTE Date Patient Seen: Jan 01, 2025 Time of Visit: 12:52 Supervising Physician: Dr Arredondo Primary Care Physician: [ ] Outpatient Specialists: [ ] Inpatient Consults: [ ] PROBLEM LIST: Acute left lower extremity ischemia. Left LE Arterial occlusion S/P removal of IABP and thrombectomy LE 12/31/24 Non-STEMI. Multi-vessel coronary artery disease status post CABG 12/28/2024 Acute metabolic encephalopathy - ,multifactorial Mild ischemic cardiomyopathy with LVEF 45-50 by left heart catheterization. Hypertension. Anemia. ERICK with hyperkalemia INTERVAL HISTORY: Patient was seen and examined, all labs and imaging have been reviewed. Patient remains intubated, good ABGs, SBTs, following commands, planning on extubation Good pulses to lower extremity, status post thrombectomy yesterday with removal of intra-aortic balloon pump Patient's renal function creatinine 5.1, GFR down to 13, CK level 628 Chest x-ray shows right lower lobe congestion Patient remains on nitro at 25, Dobutrex at 2, argatroban drip D5 half NS at 50 T-max 99.9 Plan: Continue follow Cardiothoracic Surgeons postop protocol Neurovascular checks to lower extremities Monitor for bleeding Electrolyte protocol Vent management, we will extubate to mask, pending Decadron 4 mg Daily labs and chest x-rays in a.m. PT/OT when able Follow cardiology recs Follow nephrology recs REVIEW OF SYSTEMS: 12 point ROS reviewed with patient. Pertinent positives mentioned above. Otherwise negative. PHYSICAL EXAM: GENERAL: altered, on precedex HEENT: EOMI, Sclera non icteric, moist mucosa NECK: Supple, no JVD, trachea midline LUNGS: Chest tubes in place, HEART: Regular rate and rhythm. Normal S1 and S2, without murmurs ABD: Abdomen soft, nontender. Bowel sounds present EXT: No clubbing cyanosis or edema NEURO: mittens Vital Signs (last 8hr) Date Time Temp Pulse Resp B/P (MAP) Pulse Ox O2 Delivery O2 Flow Rate FiO2 01/01/25 12:00 99.0 Nasal Cannula 3.0 01/01/25 11:30 100 Aerosol Mask+ 40 01/01/25 11:30 86 24 01/01/25 11:29 87 24 Aerosol, Face Mask 10.0 40 01/01/25 09:27 96 24 10.0 40 01/01/25 08:54 90 40 01/01/25 08:00 98 Ventilator+ 40 01/01/25 08:00 99.9 Ventilator 40 01/01/25 07:45 92 30 113/55 (74) 96 01/01/25 07:30 40 01/01/25 07:30 97 32 142/72 (95) 98 155/98 (117) 01/01/25 07:15 93 22 153/79 (103) 99 01/01/25 07:00 98 32 135/63 (87) 97 146/90 (108) 01/01/25 06:45 98 23 171/86 (114) 99 01/01/25 06:28 90 20 01/01/25 06:24 87 40 01/01/25 05:55 178/85 01/01/25 05:30 90 17 170/80 (110) 100 40 01/01/25 05:15 91 18 166/80 (108) 100 40 146/101 (116) 01/01/25 05:00 90 19 162/79 (106) 100 40 LABS: Hematology Labs: Test 01/01/25 02:35 12/31/24 04:21 Range/Units White Blood Count 7.7 4.8-10.8 K/uL Red Blood Count 3.85 #L 4.50-6.20 MIL/uL Hemoglobin 9.8 L 14.0-18.0 g/dL Hematocrit 29.9 L 42-54 % Mean Corpuscular Volume 77.7 L 79-99 fL Mean Corpuscular Hemoglobin 25.5 L 27.0-33.0 pg Mean Corpuscular Hemoglobin Concent 32.8 32.0-36.0 g/dL Red Cell Distribution Width 21.1 H 11.0-15.5 % Platelet Count 171 130-400 K/uL Mean Platelet Volume 10.5 7.5-10.5 fL Nucleated Red Blood Cells 2.5 H 0.0-0.19 % Platelet Morphology PLT CLUMPS PRESENT Red Blood Cell Morphology ANISO 1+ Chemistry Labs: Test 01/01/25 02:35 12/31/24 20:12 12/31/24 16:24 12/31/24 04:21 Range/Units Sodium Level 145 136-145 mmol/L Potassium Level 4.3 3.5-5.1 mmol/L Chloride Level 105 101-111 mmol/L Carbon Dioxide Level 29 21-32 mmol/L Blood Urea Nitrogen 35 H 7-18 mg/dL Creatinine 5.1 H 0.5-1.3 mg/dL Glomerular Filtration Rate Calc 13 >90 mL/min Random Glucose 159 H 70-105 mg/dL Total Calcium 9.3 8.5-10.1 mg/dL Whole Blood Glucose 119 H 70-110 MG/DL Total Creatine Kinase 628 *H 21-232 U/L Phosphorus Level 6.3 H 2.5-4.9 mg/dL Magnesium Level 2.10 1.80-2.40 mg/dL Total Bilirubin 0.4 0.2-1.0 mg/dL Aspartate Amino Transf (AST/SGOT) 695 *H 10-37 U/L Alanine Aminotransferase (ALT/SGPT) 341 #H 12-78 U/L Alkaline Phosphatase 96 # 50-136 U/L Total Protein 4.8 L 6.0-8.3 g/dL Albumin 1.7 L 3.5-5.0 g/dL Coagulation Labs: Test 01/01/25 11:23 Range/Units Activated Partial Thromboplast Time 75.4 H 26.3-35.5 SEC DIAGNOSTICS / RADIOLOGY RESULTS: [ ] PLAN NEURO: Minimize central acting medications as possible. Fall Precautions. Well lighted room through the day and minimize interruptions through the night to prevent acute delirium. PULMONARY: Supplemental 02 as needed Titrate Fio2 to keep Spo2 > or = 90% DuoNebs and CPT as needed IS hourly while awake for pulmonary hygiene Out of bed to chair as tolerated VAP Bundle Vent/BIPAP Settings: [ ] Driving pressure: [ ] P Plat: [ ] Static C: [ ] Static R: [ ] P/F Ratio: [ ] CARDIOVASCULAR: Follow hemodynamics. Titrate vasopressor to keep MAP >65 or systolic blood pressure >95mmHg DIPS: [ ] LINES: [ ] GI & NUTRITION: Continue nutritional support Aspirations precautions Prokinetic agents and laxatives as needed KIDNEYS & ELECTROLYTES: Strict monitoring of intake and output Daily weights Avoid nephrotoxic agents Monitor electrolytes and replace as needed Goal urine output of 30mL/hr or 0.5mL/kg/hr Urine output: [ ] Fluid Balance: [ ] ENDOCRINE: Maintain blood glucose between 100-180 at all times. Insulin sliding scale for blood glucose management INFECTIOUS DISEASE: Trend temperature. Quiñones-culture if febrile. Micro: [ ] Antibiotics: [ ] HEMATOLOGY & COAGULATION: Monitor H&H. Keep Hgb > 7 Transfuse 1 unit of PRBC for Hgb < 7 Transfuse 1 pack of platelets of platelets < 20, 000 Watch for any signs and symptoms of bleeding SKIN: Pressure ulcer prevention per facility protocol Rehab: PT/OT Prophylaxis: GI: [ ] DVT: [ ] Code Status: Full Resuscitation Disposition: [ ] Other: Total patient Critical Care time 48 minutes, time excluded any procedures. Case was discussed and seen with my supervising physician. The above plan was formulated and agreed upon. CHEYENNE HENSON Jan 01, 2025 12:56
--- NOTE | 2025-01-01 13:39 | PN ---
[facility] PROGRESS NOTE Date of Service: Jan 01, 2025 Time of Service: 13:38 SUBJECTIVE: This is a 54-year-old male who presented to [facility] with a non-STEMI. He underwent left heart catheterization which showed severe multi-vessel coronary artery disease with mid to apical inferior hypokinesis, LVEF 45-50%. He underwent echocardiogram 12/19/2024 which showed an ejection fraction of 55- 60%, mild LVH, normal-sized left atrium, mild mitral valve regurgitation and mild tricuspid valve regurgitation. He was transferred to [facility] [place]. 12/25 patient remains admitted to the PCU, case discussed with the RN, no acute events overnight, he denied chest pain, shortness shortness for breath, no nausea, no vomiting, no abdominal discomfort. Cardiology input noted and appreciated, patient to continue aspirin 81 mg p.o. daily and atorvastatin 40 mg p.o. daily. Continue metoprolol tartrate 25 mg p.o. b.i.d.. Pending evaluation by CT surgery for consideration for CABG. Discussed with the patient. 12/26 patient remains admitted to the PCU, case discussed with the RN, no acute events overnight, the time of my visit the patient is comfortably in bed, alert oriented x3, eating breakfast, tolerating well, denies nausea, no vomiting, no abdominal discomfort, he denies chest pain, no shortness a breath. Remains on aspirin 81 mg p.o. daily, atorvastatin and metoprolol 25 mg p.o. b.i.d.. Pending evaluation by CT surgery for consideration of CABG. 12/27 patient is seen and examined at bedside, case discussed with the RN, no acute events overnight, currently the patient NPO, scheduled for CABG today by Cardiothoracic surgeon. We will continue to follow. 12/28 patient is seen and examined at bedside, case discussed with the RN, no acute events overnight, currently the patient NPO, scheduled for CABG today by Cardiothoracic surgeon. We will continue to follow. 12/29 patient is seen and examined at bedside, remains admitted to the ICU, postoperative day 1., status post CABG 12/28/2024, patient on insulin drip, nitroglycerin drip, alert oriented x3 following commands, however was mildly agitated earlier this morning, motion with the RN started on Precedex. Patient with chest tube in place. Further recommendations per Cardiothoracic surgeon. 12/30 patient remains admitted to the ICU, case discussed with the RN, patient remains confused, trying to pull his IV lines, remains on Precedex. Throughout the balloon pump in place, just to be breath, remains on epinephrine, Levophed, Lasix drip, dobutamine drip. Creatinine today at 3.0. Nephrology consultation requested, we will follow input and recommendation. Continue to monitor liver enzymes in a.m., follow ammonia level (at the time of my dictation less than 10). Continue to follow critical care input and recommendation. Prognosis remains guarded. 12/31 54-year-old male who was transferred from [facility] with a non- STEMI. He underwent left heart catheterization which showed severe multi-vessel coronary artery disease with mid to apical inferior hypokinesis, LVEF 45-50%. He underwent echocardiogram 12/19/2024 which showed an ejection fraction of 55- 60%, mild LVH, normal-sized left atrium, mild mitral valve regurgitation and mild tricuspid valve regurgitation. He was transferred to [facility] [place] for CABG. Cardiothoracic surgeon consultation requested, patient underwent CABG 12/28/2024. Continue to follow Cardiothoracic input and recommendations. Patient has been mildly confused post procedure, started on Precedex. 01/01 54-year-old male who was transferred from [facility] with a non- STEMI. He underwent left heart catheterization which showed severe multi-vessel coronary artery disease with mid to apical inferior hypokinesis, LVEF 45-50%. He underwent echocardiogram 12/19/2024 which showed an ejection fraction of 55- 60%, mild LVH, normal-sized left atrium, mild mitral valve regurgitation and mild tricuspid valve regurgitation. He was transferred to [facility] [place] for CABG. Cardiothoracic surgeon consultation requested, patient underwent CABG 12/28/2024. At the time of my visit resting comfortably in bed, off Precedex, following commands, status post interval removal of intra-aortic balloon pump yesterday, remains on dobutamine and nitroglycerin drip as well as argatroban. Continue to follow critical Care and Cardiothoracic input and recommendations. REVIEW OF SYSTEMS CONSTITUTIONAL: Denies fevers, chills, or night sweats. No unintentional weight loss reported. NEUROLOGICAL: Denies headache, amaurosis fugax, motor weakness, sensory deficit, vertigo/spinning sensation, gait abnormalities, or tremors. ENT: No hearing loss, otalgia, otorrhea, rhinitis, rhinorrhea, hoarseness, or sore throat. CARDIOVASCULAR: Denies any exertional angina, dyspnea on exertion, orthopnea, paroxysmal nocturnal dyspnea, palpitations, life-threatening arrhythmias, claudication. PULMONARY: Denies any shortness of breath, cough, phlegm/sputum, hemoptysis, pleuritic chest pain. SLEEP: Denies morning headaches, daytime somnolence or napping. Denies difficul ty falling asleep, staying asleep, waking from sleep. Denies knowledge of snoring. GASTROINTESTINAL: Denies any type of dysphagia to either liquids or solids. Denies nausea, vomiting, pyrosis, early satiety, abdominal pain, diarrhea, constipation, or changes in stool consistency or caliber. Denies coffee-ground emesis, hematemesis, hematochezia, or melanotic stools. GENITOURINARY: Denies frequency, urgency, nocturia, hematuria or incontinence (Storage/Irritative symptoms.) Low urinary stream, straining to void, urinary intermittency or hesitancy, splitting of the voiding stream, terminal dribbling. ENDOCRINOLOGIC: Denies polyuria, polydipsia, polyphagia or heat/cold intole rances. HEMATOLOGIC: Denies thrombophilia/previous clots, or coagulopathy/bleeding disorders. ONCOLOGIC: Denies personal history of malignancy. DERMATOLOGIC: Denies rashes or pruritus. PSYCHIATRIC: Denies any suicidal or homicidal ideation. Denies hallucinations. PHYSICAL EXAM GENERAL APPEARANCE: Patient is confused, trying to pull his IV lines, on Precedex. NEUROLOGICAL: Cranial nerves II-XII grossly intact. Motor is 5/5 in bilateral upper and lower extremities proximal to distal. No sensory deficits. HEENT: Face is symmetric. Pupils are equal and reactive. Extraocular movements are intact. NECK: Supple. No JVD. No thyromegaly. No submental, submandibular, pre- /postauricular, occipital or supraclavicular lymphadenopathy. CHEST: Normal chest expansion. No Telemetry. LUNGS: Absence of any rales, rhonchi or any wheezing. Chest tube in place. CARDIOVASCULAR: Regular. S1 and S2 normal. No appreciable rubs, murmurs or gallops. ABDOMEN: Soft, nontender, and nondistended. There is no rebound, voluntary guarding, or rigidity. : Deferred. No Andres. EXTREMITIES: Non-edematous and not cyanotic. No clubbing. Good capillary refill. SKIN: No skin breakdown. Vital Signs (last 8hr) Date Time Temp Pulse Resp B/P (MAP) Pulse Ox O2 Delivery O2 Flow Rate FiO2 01/01/25 12:00 99.0 Nasal Cannula 3.0 01/01/25 11:30 100 Aerosol Mask+ 40 01/01/25 11:30 86 24 01/01/25 11:29 87 24 Aerosol, Face Mask 10.0 40 01/01/25 09:27 96 24 10.0 40 01/01/25 08:54 90 40 01/01/25 08:00 98 Ventilator+ 40 01/01/25 08:00 99.9 Ventilator 40 01/01/25 07:45 92 30 113/55 (74) 96 01/01/25 07:30 40 01/01/25 07:30 97 32 142/72 (95) 98 155/98 (117) 01/01/25 07:15 93 22 153/79 (103) 99 01/01/25 07:00 98 32 135/63 (87) 97 146/90 (108) 01/01/25 06:45 98 23 171/86 (114) 99 01/01/25 06:28 90 20 01/01/25 06:24 87 40 01/01/25 05:55 178/85 LABS: Laboratory: Test 01/01/25 11:36 01/01/25 11:23 01/01/25 08:50 01/01/25 02:35 Range/Units Blood Gas Specimen Type Arterial Arterial Blood pH 7.512 H 7.350-7.450 Arterial Blood Partial Pressure CO2 31 L 35-48 mmHg Arterial Blood Partial Pressure O2 99.9 83.0-108.0 mmHg Arterial Blood HCO3 24.2 21.0-28.0 mmol/L Arterial Blood Oxygen Saturation 97.1 94.0-98.0 % Arterial Blood Base Excess 1.7 -2.0-3.0 mmol/L Hemoglobin (Blood Gas) 10.4 L 13.5-17.5 g/dL Sodium (Blood Gas) 142 136-145 MMOL/L Bedside Potassium (Blood Gas) 4.0 3.4-4.5 MMOL/L Bedside Chloride (Blood Gas) 106 98-107 MMOL/L Bedside Glucose (Blood Gas) 132 H 65-95 MG/DL Bedside Ionized Calcium (Blood Gas) 1.19 1.15-1.33 MMOL/L Bedside Lactic Acid (Blood Gas) 2.00 H 0.36-0.75 MMOL/L Blood Gas Temperature 37.0 35.5-37.0 CELSIUS Blood Gas Flow-by 10.00 0.00-15.00 L/min Blood Gas Vent Mode CAFM ROOM AIR FiO2 40.0 % Blood Gas Specimen Comment A-LINE ARELY Activated Partial Thromboplast Time 75.4 H 26.3-35.5 SEC Blood Gas Respiration Rate 4.0 min. Blood Gas Tidal Volume 600 ml Blood Gas PEEP 5 cm H2O White Blood Count 7.7 4.8-10.8 K/uL Red Blood Count 3.85 #L 4.50-6.20 MIL/uL Hemoglobin 9.8 L 14.0-18.0 g/dL Hematocrit 29.9 L 42-54 % Mean Corpuscular Volume 77.7 L 79-99 fL Mean Corpuscular Hemoglobin 25.5 L 27.0-33.0 pg Mean Corpuscular Hemoglobin Concent 32.8 32.0-36.0 g/dL Red Cell Distribution Width 21.1 H 11.0-15.5 % Platelet Count 171 130-400 K/uL Mean Platelet Volume 10.5 7.5-10.5 fL Nucleated Red Blood Cells 2.5 H 0.0-0.19 % Sodium Level 145 136-145 mmol/L Potassium Level 4.3 3.5-5.1 mmol/L Chloride Level 105 101-111 mmol/L Carbon Dioxide Level 29 21-32 mmol/L Blood Urea Nitrogen 35 H 7-18 mg/dL Creatinine 5.1 H 0.5-1.3 mg/dL Glomerular Filtration Rate Calc 13 >90 mL/min Random Glucose 159 H 70-105 mg/dL Total Calcium 9.3 8.5-10.1 mg/dL Test 12/31/24 20:12 12/31/24 16:24 12/31/24 04:21 12/30/24 15:25 Range/Units Whole Blood Glucose 119 H 70-110 MG/DL Total Creatine Kinase 628 *H 21-232 U/L Platelet Morphology PLT CLUMPS PRESENT Red Blood Cell Morphology ANISO 1+ Phosphorus Level 6.3 H 2.5-4.9 mg/dL Magnesium Level 2.10 1.80-2.40 mg/dL Total Bilirubin 0.4 0.2-1.0 mg/dL Aspartate Amino Transf (AST/SGOT) 695 *H 10-37 U/L Alanine Aminotransferase (ALT/SGPT) 341 #H 12-78 U/L Alkaline Phosphatase 96 # 50-136 U/L Total Protein 4.8 L 6.0-8.3 g/dL Albumin 1.7 L 3.5-5.0 g/dL Urine Color LIGHT-YELLOW YELLOW Urine Appearance CLEAR CLEAR Urine pH 6.5 5.0-8.0 Urine Specific [place] 1.009 1.001-1.031 Urine Protein NEGATIVE NEGATIVE mg/dL Urine Glucose (UA) NEGATIVE NEGATIVE mg/dL Urine Ketones NEGATIVE NEGATIVE mg/dL Urine Occult Blood LARGE H NEGATIVE Urine Nitrate NEGATIVE NEGATIVE Urine Bilirubin NEGATIVE NEGATIVE mg/dL Urine Urobilinogen 0.2 0.2-1.0 mg/dL Urine Leukocyte Esterase 25 H NEGATIVE Jorge/uL Urine RBC 11-25 H 0-1 /HPF Urine WBC 2-5 H 0-1 /HPF Urine Squamous Epithelial Cells RARE 0-2 /HPF Urine Bacteria None None Seen /HPF Current Medications Medications (Trade) Dose Ordered Sig/Mila Route PRN Reason Start Time Stop Time Status Last Admin Dose Admin Acetaminophen (TYLenol 325MG TAB) 650 mg Q4H PRN PO Temp >38.3C(AFTER EXTUBATION) 12/28/24 14:00 01/27/25 13:59 Acetaminophen (TYLenol 325MG TAB) 650 mg Q6H PRN PO MILD PAIN (1-3) 12/24/24 01:30 12/28/24 13:57 DC 12/27/24 23:45 650 MG Acetaminophen (TYLenol 325MG TAB) 650 mg Q6H PRN PO TEMPERATURE GREATER THAN 101.5 12/24/24 03:00 12/28/24 14:10 DC Acetaminophen (TYLenol 325MG TAB) 650 mg Q6H PRN PO MILD PAIN (1-3) 12/28/24 14:00 01/27/25 13:59 12/30/24 07:51 650 MG Acetaminophen (TYLenol 650MG SUPPOSITORY) 650 mg Q4H PRN RC Temp >38.3C WHILE INTUBATED 12/28/24 14:00 01/27/25 13:59 Acetaminophen (acetaMINOPHEN) 1,000 mg Q6H6 IV 12/28/24 18:00 12/29/24 17:59 DC 12/29/24 17:27 1,000 MG Acetaminophen (acetaMINOPHEN) 1,000 mg Q6H6 IVPB 12/30/24 00:00 12/31/24 20:14 DC 12/30/24 18:16 1,000 MG Albumin Human 250 ml @ 0 mls/hr AD PRN IV IF HEMODYNAMICALLY UNSTABLE 12/28/24 14:00 12/29/24 09:28 DC 12/29/24 09:28 250 MLS/HR Albuterol Sulfate (Proventil 0.083% 2.5mg/3ml) 2.5 mg ONCE STAT IH 12/30/24 10:22 12/30/24 10:32 DC 12/30/24 10:43 2.5 MG Aminocaproic Acid 94805 mg/Sodium Chloride 310 ml @ 25 mls/hr AD IV 12/28/24 14:00 12/28/24 14:14 DC Aminocaproic Acid 81527 mg/Sodium Chloride 480 ml @ 0 mls/hr AD PRN IV BLEEDING CONTROL 12/27/24 11:00 01/26/25 10:59 Argatroban 250 mg/ Sodium Chloride 250 ml @ 0 mls/hr PROTOCOL IV 12/31/24 16:30 01/30/25 16:29 12/31/24 22:32 2.61 MLS/HR Aspirin (Aspirin 81mg Ec Tab) 81 mg DAILY PO 12/24/24 09:00 01/23/25 08:59 01/01/25 09:16 81 MG Atorvastatin Calcium (LIPItor 40MG) 40 mg HS PO 12/24/24 21:00 01/01/25 11:16 DC 12/31/24 20:44 40 MG Bisacodyl (DulcoLAX) 10 mg DAILY PRN RC CONSTIPATION - MOM INEFFECTIVE 12/29/24 14:00 01/28/25 13:59 12/30/24 11:05 10 MG Calcium Gluconate 1 gm/Sodium Chloride 60 ml @ 200 mls/hr AD PRN IV HYPOCALCEMIA 12/28/24 14:00 01/27/25 13:59 01/01/25 01:52 200 MLS/HR Cefazolin Sodium (ANCEF 1 gm vial) 2 gm ONCALL IVP 12/26/24 16:30 12/26/24 16:28 DC Cefazolin Sodium (Ancef) 2 gm ONCALL PRN IVP SURGERY 12/26/24 16:30 12/28/24 13:57 DC Cefazolin Sodium (Ancef) 2 gm Q8H IVPB 12/28/24 19:00 12/29/24 11:01 DC 12/29/24 11:04 2 GM Dexmedetomidine/ Sodium Chloride (PRECEdex 400MCG/ 100ML-NS) 400 mcg PROTOCOL IV 12/28/24 14:00 12/29/24 13:59 DC 12/29/24 12:16 400 MCG Dexmedetomidine/ Sodium Chloride (PRECEdex 400MCG/ 100ML-NS) 400 mcg PROTOCOL IV 12/29/24 18:00 01/28/25 17:59 12/31/24 06:05 400 MCG Dextrose (D50w) 50 ml AD PRN IV HYPOGLYCEMIA PROTOCOL 12/28/24 14:00 01/27/25 13:59 Dextrose (D50w) 50 ml ONCE STAT IV 12/30/24 11:36 12/30/24 11:39 DC 12/30/24 11:45 50 ML Dextrose/Sodium Chloride 1,000 ml @ 50 mls/hr Q20H IV 12/30/24 11:30 01/29/25 11:29 01/01/25 02:09 50 MLS/HR Dobutamine HCl/ Dextrose 250 ml @ 0 mls/hr PROTOCOL IV 12/29/24 14:00 01/28/25 13:59 01/01/25 02:12 8.3 MLS/HR Docusate Sodium (COLace 100MG CAP) 100 mg BID PO 12/28/24 21:00 12/29/24 08:01 DC 12/28/24 20:53 100 MG Docusate Sodium (COLace LIQUID 100MG/10ML) 100 mg BID PO 12/29/24 08:00 01/28/25 07:59 01/01/25 09:16 100 MG Enoxaparin Sodium (Lovenox) 30 mg DAILY SQ 12/31/24 09:00 12/31/24 16:12 DC Epinephrine HCl 10 mg/Sodium Chloride 250 ml @ 0 mls/hr AD PRN IV TITRATE 12/27/24 11:00 01/26/25 10:59 12/30/24 04:29 0 MLS/HR Epinephrine HCl 10 mg/Sodium Chloride 250 ml @ 0 mls/hr AD PRN IV POST-OP CARDIOVASCULAR ORDERS 12/28/24 14:00 12/28/24 14:14 DC Famotidine (Pepcid 20mg Vial) 20 mg BID IV 12/28/24 21:00 12/31/24 20:20 DC 12/31/24 08:51 20 MG Famotidine (Pepcid 20mg Vial) 20 mg Q48H IV 01/02/25 09:00 01/27/25 20:59 Famotidine (Pepcid 20mg Tab) 20 mg DAILY PO 12/24/24 09:00 12/28/24 13:54 DC 12/26/24 10:19 20 MG Furosemide (LASix 20MG TAB) 20 mg Q12H PO 12/30/24 09:00 12/30/24 08:34 DC Furosemide (LASix 20MG VIAL) 20 mg Q12H IV 12/29/24 09:00 12/30/24 08:34 DC 12/29/24 09:20 20 MG Furosemide 100 mg/ Sodium Chloride 100 ml @ 0 mls/hr PROTOCOL IV 12/29/24 14:30 01/28/25 14:29 01/01/25 08:48 10 MLS/HR Glucagon (Glucagon 1mg Kit) 1 mg AD PRN IM HYPOGLYCEMIA PROTOCOL 12/28/24 14:00 01/27/25 13:59 Heparin Sodium (Porcine) (HEParin 5,000 UNIT VIAL) *calculation based on ACTUAL B... AD PRN IV HEPARIN PROTOCOL 12/24/24 02:30 12/28/24 13:54 DC 12/24/24 17:32 5,000 UNIT Heparin Sodium/ Dextrose 250 ml @ 0 mls/hr Q6H IV 12/24/24 02:30 12/28/24 13:54 DC 12/27/24 17:04 11.3 MLS/HR Hydralazine HCl (APRESOLine 20MG INJ) 10 mg Q6H PRN IV For:SBP above 160;DBP above 90 12/24/24 03:00 12/28/24 13:54 DC Insulin Human Regular (humuLIN R 100 UNIT/ML 3ML) 10 unit ONCE STAT IV 12/30/24 11:42 12/30/24 11:45 DC 12/30/24 12:01 10 UNIT Insulin Human Regular (humuLIN R 100 UNIT/ML 3ML) 10 unit ONCE STAT SQ 12/30/24 11:36 12/30/24 11:43 DC Insulin Human Regular 100 unit/ Sodium Chloride 100 ml @ 0 mls/hr AD IV 12/28/24 14:00 12/29/24 17:55 DC 12/28/24 17:09 5 MLS/HR Ipratropium Williamson (AtrovENT UD) 0.5 mg [id number] IH 12/30/24 12:00 01/29/25 11:59 01/01/25 11:29 0.5 MG Lactulose (Constulose 20gm/ 30ml Udcup) 20 gm BID PRN PO CONSTIPATION 12/24/24 03:00 12/28/24 13:54 DC 12/26/24 21:30 20 GM Lactulose (Constulose 20gm/ 30ml Udcup) 20 gm BID PRN PO CONSTIPATION 12/28/24 14:00 01/27/25 13:59 12/30/24 07:50 20 GM Lidocaine HCl/ Dextrose 250 ml @ 0 mls/hr AD PRN IV TITRATE 12/28/24 22:30 12/29/24 16:00 DC 12/29/24 06:53 15 MLS/HR Magnesium Hydroxide (Milk Of Magnesium 30ml) 30 ml DAILY PRN PO CONSTIPATION 12/28/24 14:00 01/27/25 13:59 12/30/24 10:18 30 ML Magnesium Sulfate 50 ml @ 12.5 mls/hr AD PRN IV MAG LEVEL LESS THAN 2.0 12/28/24 14:00 01/27/25 13:59 12/28/24 18:42 12.5 MLS/HR Magnesium Sulfate 50 ml @ 0 mls/hr PROTOCOL PRN IV MAGNESIUM PROTOCOL 12/26/24 15:00 12/28/24 14:10 DC Metolazone (zarOXOlyn) 5 mg ONCE PO 12/31/24 12:00 12/31/24 20:18 DC 12/31/24 12:01 5 MG Metoprolol Tartrate (loprESSOR) 12.5 mg BID PO 12/30/24 09:00 01/29/25 08:59 01/01/25 09:16 12.5 MG Metoprolol Tartrate (loprESSOR) 25 mg BID PO 12/25/24 21:00 12/28/24 13:54 DC 12/28/24 09:28 25 MG Morphine Sulfate (morPHINE 2MG SYG) 0.5 mg Q2H PRN IV MODERATE PAIN (4-6) 12/28/24 14:00 12/29/24 13:59 DC Morphine Sulfate (morPHINE 2MG SYG) 1 mg Q2H PRN IV SEVERE PAIN (7-10) 12/28/24 14:00 12/29/24 13:59 DC 12/28/24 17:05 1 MG Morphine Sulfate (morPHINE 2MG SYG) 2 mg Q4H PRN IVP SEVERE PAIN (7-10) 12/24/24 03:00 12/28/24 13:54 DC 12/26/24 02:43 2 MG Nitroglycerin (Nitroglycerin 1gm Oint) 0.5 inch Q8H5 TD 12/24/24 01:30 12/28/24 13:54 DC 12/27/24 12:57 0.5 INCH Nitroglycerin/ Dextrose 0 ml @ 0 mls/hr AD IV 12/28/24 14:00 12/31/24 14:00 DC Nitroglycerin/ Dextrose 0 ml @ 0 mls/hr AD PRN IV TITRATE 01/01/25 06:30 01/31/25 06:29 01/01/25 05:55 3 MLS/HR Norepinephrine Bitartrate 250 ml @ 0 mls/hr AD PRN IV TITRATE 12/27/24 11:00 01/26/25 10:59 12/30/24 12:34 3.8 MLS/HR Norepinephrine Bitartrate 8 mg/ Dextrose 250 ml @ 0 mls/hr AD PRN IV POST-OP CARDIOVASCULAR ORDERS 12/28/24 14:00 12/28/24 14:14 DC Ondansetron HCl (zoFRAN 4MG INJ) 4 mg Q6H PRN IV NAUSEA/VOMITING 12/24/24 03:00 12/28/24 13:54 DC Ondansetron HCl (zoFRAN 4MG INJ) 4 mg Q6H PRN IV NAUSEA/VOMITING 12/28/24 14:00 01/27/25 13:59 12/30/24 11:01 4 MG Piperacillin Sod/ Tazobactam Sod (Zosyn 3.375gm+NS 50ml) 3.375 gm Q12H IV 12/30/24 15:30 01/09/25 15:29 01/01/25 04:28 3.375 GM Potassium Phosphate 250 ml @ 42 mls/hr AD PRN IV LOW PHOS LEVEL 12/28/24 14:00 01/27/25 13:59 12/29/24 06:12 42 MLS/HR Potassium Chloride 100 ml @ 100 mls/hr AD PRN IV POTASSIUM PROTOCOL 12/26/24 15:00 12/28/24 13:54 DC Potassium Chloride 100 ml @ 100 mls/hr AD PRN IV HYPOKALEMIA 12/28/24 14:00 01/27/25 13:59 12/29/24 01:21 100 MLS/HR Potassium Chloride (K-Dur/Klor-Con 20meq) 20 meq AD PRN PO POTASSIUM PROTOCOL 12/26/24 15:00 12/28/24 13:54 DC 12/26/24 18:27 20 MEQ Potassium Chloride (KCl 10% Elixir 20meq/15ml) 20 meq AD PRN PO POTASSIUM PROTOCOL 12/26/24 15:00 12/28/24 13:54 DC Propofol 100 ml @ 0 mls/hr AD PRN IV SEDATION 12/28/24 14:00 01/01/25 13:59 Sodium Polystyrene Sulfonate (kayEXALate 15 GM/60 ML) 30 gm ONCE STAT PO 12/30/24 11:36 12/30/24 11:39 DC 12/30/24 11:45 30 GM Sodium Bicarbonate (Sodium Bicarb 50meq 50ml Vial) 50 meq AD PRN IV OTHER[SEE DOSING INSTRUCTIONS] 12/28/24 14:00 12/31/24 14:00 DC 12/30/24 12:45 100 MEQ Sodium Chloride 500 ml @ 0 mls/hr AD IV 12/28/24 14:00 01/27/25 13:59 Sodium Chloride 1,000 ml @ 10 mls/hr ONCE IV 12/28/24 14:00 12/29/24 13:59 DC 12/28/24 17:06 10 MLS/HR Sodium Chloride (NS Flush 10ml) 10 ml Q8H PRN IVP IV LINE FLUSH 12/28/24 14:00 01/27/25 13:59 Tramadol HCl (UltRAM) 25 mg Q6H PRN PO MODERATE PAIN (4-6) 12/28/24 14:00 12/29/24 13:56 DC 12/29/24 11:05 25 MG Tramadol HCl (UltRAM) 50 mg Q6H PRN PO SEVERE PAIN (7-10) 12/28/24 14:00 12/29/24 13:56 DC Vasopressin 20 units/Sodium Chloride 100 ml @ 0 mls/hr PROTOCOL IV 12/30/24 15:30 01/29/25 15:29 12/31/24 10:40 6 MLS/HR DIAGNOSTICS / RADIOLOGY: [ ] ASSESSMENT: 1. Non-STEMI. 2. Multi-vessel coronary artery disease status post CABG 12/28/2024 3. Mild ischemic cardiomyopathy with LVEF 45-50 by left heart catheterization. 4. Hypertension. 5. Anemia. PLAN: NEURO: Minimize central acting medications as possible. Fall Precautions. Well lighted room through the day and minimize interruptions through the night to prevent acute delirium. PULMONARY: Supplemental 02 as needed BiPAP as necessary, for respiratory distress Titrate Fio2 to keep Spo2 > or = 90% DuoNebs and CPT as needed IS hourly while awake for pulmonary hygiene prn Out of bed to chair as tolerated Maintain aspiration precautions at all times CARDIOVASCULAR: Follow hemodynamics. Vital signs per facility protocol GI & NUTRITION: Continue nutritional support Aspirations precautions Prokinetic agents and laxatives as needed KIDNEYS & ELECTROLYTES: Strict monitoring of intake and output Daily weights Avoid nephrotoxic agents Monitor electrolytes and replace as needed Goal urine output of 30mL/hr or 0.5mL/kg/hr Medications to be dosed according to renal function. Avoid contrast if possible ENDOCRINE: Maintain blood glucose between 100-180 at all times. Insulin sliding scale for blood glucose management Hypoglycemia and hyperglycemia protocol in place INFECTIOUS DISEASE: Trend temperature, WBC and procalcitonin level Follow cultures, deescalate antibiotics as soon as possible. Panculture if new onset fever HEMATOLOGY & COAGULATION: Monitor H&H. Keep Hgb > 7 Transfuse 1 unit of PRBC for Hgb < 7 Transfuse 1 pack of platelets of platelets < 20, 000 Watch for any signs and symptoms of bleeding SKIN: Pressure ulcer prevention per facility protocol Specialty mattress as needed ORTHO/REHAB Continue PT/OT PRN: MEDICATIONS Tylenol 650 mg po every 4 hrs for fever zofran 4 mg IV every 6 hrs for n/v Hydralazine 5 mg IV every 4 hrs systolic pressure > 160 bowel regiment: lactulose 20 gm PO BID PRN constipation Supportive measures: Continue GI and DVT prophylaxis Disposition: Pending evaluation by CT surgery for consideration of CABG. All questions answered time spent: > 35 min BURKE SULLIVAN MD Jan 01, 2025 13:39
--- NOTE | 2025-01-01 14:05 | NUR ---
Restraints discontinued
--- NOTE | 2025-01-01 14:05 | NUR ---
Pt in bed, calm, alert and oriented, following commands. Patient not pulling on tubing or catheters.
--- NOTE | 2025-01-01 14:46 | NUR ---
emergency veterinary technician at bedside for 2D echo
--- NOTE | 2025-01-01 19:17 | CCATH ---
SUBJECTIVE: Status post CABG, status post removal of intraaortic balloon pump and thrombectomy. OBJECTIVE: GENERAL: Awake, alert, no acute distress. Much better oriented than yesterday and the day prior. He responds appropriately to command. CHEST: Sternum stable. EXTREMITIES: He has got 2+ pitting edema. He dorsiflexes his foot. He has got mottled toes. ASSESSMENT: * The platelet count is normal. After thrombectomy, he was started on argatroban. * Vascular. The patient was started on argatroban. He has got Doppler pulses on the dorsalis pedis and posterior tibial arteries. Continue argatroban. * Possible heparin-induced thrombocytopenia and thrombosis. We will check an INA test. Continue argatroban as an anticoagulant for the microthrombosis of the toes. * Coronary artery disease, status post CABG. Continue aspirin and Plavix. * Acute kidney injury without dialysis. Creatinine is up to 5. The patient remains making about 40 mL an hour of urine. He maintains adequate hemodynamics. We have consulted Dr. Landis which is following him. We will hold on dialysis for now and follow Dr. Landis' recommendations. * Acute respiratory insufficiency. The patient was hypoxic yesterday and after the thrombectomy and diuresis overnight, he had extubated without any difficulty and is maintaining adequately and maintaining adequate saturation of BiPAP. PLAN: Continue argatroban and Plavix. Monitor kidney function. TID: [id number] RECEIPT: [id number]
--- NOTE | 2025-01-01 22:26 | PN ---
[facility] PROGRESS NOTE Date Patient Seen: Jan 01, 2025 Time of Visit: 11:00 AM Supervising Physician: [ Noble Arredondo MD] Primary Care Physician: [ ] Outpatient Specialists: [ ] Inpatient Consults: [ ] PROBLEM LIST: Multi-vessel coronary artery disease status post CABG 12/28/2024 Acute left lower extremity ischemia, Left LE Arterial occlusion S/P removal of IABP and thrombectomy LE 12/31/24 Non-STEMI Acute metabolic encephalopathy - multifactorial Mild ischemic cardiomyopathy with LVEF 45-50 by left heart catheterization. Hypertension Anemia Acute kidney injury with hyperkalemia INTERVAL HISTORY: Patient was seen and examined, all labs and imaging have been reviewed. The patient remained stable overnight with no acute events. He was successfully extubated this morning and is now on 3 L nasal cannula with SpO2 99%. Current drips include: nitroglycerin at 25 mcg/min, argatroban at 0.398 mL/hr, furosemide at 10 mL/hr, and dobutamine at 8.3 mL/hr. Precedex, vasopressin, and epinephrine have been discontinued. An arterial line remains in place. On exam during rounds, vital signs were stable with BP 137/72, pulse 22. Chest XRAY showed no acute cardiopulmonary process, improving bilateral airspace opacities, mild left plural effusion. Laboratory results: WBC 7.7, hemoglobin 9.8, hematocrit 29.9, electrolytes within normal limits. Renal function is worsening with BUN increasing from 30 to 35 and creatinine rising to 5.1 (from 4.3). The cardiovascular surgery team recommended continuing Zosyn therapy. LFTs are improving: AST decreased to 695 (from 776) and ALT to 341. CK remains elevated at 628. Total protein is 4.8 and albumin is 1.7. Good pulses to lower extremity, status post thrombectomy yesterday with removal of intra-aortic balloon pump. Plan: Continue follow Cardiothoracic Surgeons postop protocol Neurovascular checks to lower extremities Monitor for bleeding Electrolyte protocol Daily labs and chest x-rays in a.m. PT/OT when able Follow cardiology recs Follow nephrology recs REVIEW OF SYSTEMS: 12 point ROS reviewed with patient. Pertinent positives mentioned above. Otherwise negative. PHYSICAL EXAM: GENERAL: altered, on precedex HEENT: EOMI, Sclera non icteric, moist mucosa NECK: Supple, no JVD, trachea midline LUNGS: Chest tubes in place, HEART: Regular rate and rhythm. Normal S1 and S2, without murmurs ABD: Abdomen soft, nontender. Bowel sounds present EXT: No clubbing cyanosis or edema NEURO: mittens Vital Signs (last 8hr) Date Time Temp Pulse Resp B/P (MAP) Pulse Ox O2 Delivery O2 Flow Rate FiO2 01/01/25 18:55 94 25 N/Cannula Low lpm 3.0 32 01/01/25 18:54 88 24 01/01/25 18:45 90 27 148/86 (106) 99 01/01/25 18:30 93 29 168/88 (114) 100 137/84 (101) 01/01/25 18:15 90 32 138/75 (96) 96 01/01/25 18:00 91 32 139/75 (96) 94 113/71 (85) 01/01/25 17:45 90 24 162/86 (111) 100 01/01/25 17:30 92 29 163/87 (112) 100 01/01/25 17:15 88 24 153/83 (106) 100 01/01/25 17:00 89 27 149/80 (103) 100 132/85 (101) 01/01/25 16:45 88 29 154/81 (105) 100 01/01/25 16:30 92 27 161/84 (109) 100 135/84 (101) 01/01/25 16:15 90 25 152/81 (104) 96 01/01/25 16:00 99.3 Nasal Cannula 3.0 01/01/25 16:00 100 Aerosol Mask+ 40 01/01/25 16:00 90 26 155/83 (107) 99 138/81 (100) 01/01/25 15:45 86 26 143/77 (99) 98 01/01/25 15:30 91 24 148/79 (102) 98 133/81 (98) 01/01/25 15:15 91 22 156/84 (108) 96 01/01/25 15:00 93 21 156/84 (108) 96 138/91 (107) 01/01/25 14:45 94 24 163/92 (115) 98 01/01/25 14:30 91 24 152/87 (108) 98 127/79 (95) LABS: Hematology Labs: Test 01/01/25 02:35 12/31/24 04:21 Range/Units White Blood Count 7.7 4.8-10.8 K/uL Red Blood Count 3.85 #L 4.50-6.20 MIL/uL Hemoglobin 9.8 L 14.0-18.0 g/dL Hematocrit 29.9 L 42-54 % Mean Corpuscular Volume 77.7 L 79-99 fL Mean Corpuscular Hemoglobin 25.5 L 27.0-33.0 pg Mean Corpuscular Hemoglobin Concent 32.8 32.0-36.0 g/dL Red Cell Distribution Width 21.1 H 11.0-15.5 % Platelet Count 171 130-400 K/uL Mean Platelet Volume 10.5 7.5-10.5 fL Nucleated Red Blood Cells 2.5 H 0.0-0.19 % Platelet Morphology PLT CLUMPS PRESENT Red Blood Cell Morphology ANISO 1+ Chemistry Labs: Test 01/01/25 02:35 12/31/24 20:12 12/31/24 16:24 12/31/24 04:21 Range/Units Sodium Level 145 136-145 mmol/L Potassium Level 4.3 3.5-5.1 mmol/L Chloride Level 105 101-111 mmol/L Carbon Dioxide Level 29 21-32 mmol/L Blood Urea Nitrogen 35 H 7-18 mg/dL Creatinine 5.1 H 0.5-1.3 mg/dL Glomerular Filtration Rate Calc 13 >90 mL/min Random Glucose 159 H 70-105 mg/dL Total Calcium 9.3 8.5-10.1 mg/dL Whole Blood Glucose 119 H 70-110 MG/DL Total Creatine Kinase 628 *H 21-232 U/L Phosphorus Level 6.3 H 2.5-4.9 mg/dL Magnesium Level 2.10 1.80-2.40 mg/dL Total Bilirubin 0.4 0.2-1.0 mg/dL Aspartate Amino Transf (AST/SGOT) 695 *H 10-37 U/L Alanine Aminotransferase (ALT/SGPT) 341 #H 12-78 U/L Alkaline Phosphatase 96 # 50-136 U/L Total Protein 4.8 L 6.0-8.3 g/dL Albumin 1.7 L 3.5-5.0 g/dL Coagulation Labs: Test 01/01/25 15:15 Range/Units Activated Partial Thromboplast Time 69.4 H 26.3-35.5 SEC DIAGNOSTICS / RADIOLOGY RESULTS: [facility] [address] [place] [id number] IMAGING REPORT Signed PATIENT: ZHEN IVEY MR#: [id number] : 1970 SEX: M AGE: 54 LOCATION: 2CH ORDER 2300 STATUS: ADM IN REPORT#: [id number] SERVICE 0400 REASON: s/p CABG ORDERING PHYSICIAN: KATHRIN PONCE MD PROCEDURE: CXR1VW - CHEST 1VW EXAM: CR Chest, 1 View. CLINICAL HISTORY: s/p CABG COMPARISON: Study dated 12/31. FINDINGS: There is an endotracheal tube noted with its tip approximately 3.8 cm above the buddy. There is an enteric tube noted with its tip in the stomach. There is a right-sided jugular sheath in the superior vena cava. LUNGS: Again noted are diffuse bilateral airspace opacities, which show an interval decrease when compared with the prior exam. PLEURAL SPACES: Mild left-sided pleural effusion. No evidence of pneumothorax. MEDIASTINUM: Cardiac size and mediastinal contours are within normal limits. BONES: No acute osseous abnormality. IMPRESSION: 1. No acute cardiopulmonary findings. 2. Appropriately positioned endotracheal tube, enteric tube, and right jugular sheath. 3. Improving bilateral airspace opacities. 4. New finding of mild left pleural effusion. /[place] DICTATED BY: NOÉ SERNA Jr., MD DATE: 01/01/251248 ELECTRONICALLY SIGNED BY: NOÉ SERNA Jr., MD DATE: 01/01/25 1248 [facility] [address] [id number] IMAGING REPORT Signed PATIENT: ZHEN IVEY MR#: [id number] : 1970 SEX: M AGE: 54 LOCATION: 2CH ORDER 0807 STATUS: ADM IN REPORT#: [id number] SERVICE 0807 REASON: nonpalpable pedal/tibial pulses ORDERING PHYSICIAN: KATHRIN PONCE MD PROCEDURE: ART U LE - US ARTERIAL UNILA LOW EXT DUPL US ARTERIAL UNILA LOW EXT DUPL HISTORY: nonpalpable pedal/tibial pulses TECHNIQUE: Real-time arterial doppler ultrasound of the lower extremity was performed. Patient currently with IABP FINDINGS: LEFT: Patient with from. Peak systolic velocities: ATM SERVICER 29 cm/s. Proximal SFA 22 cm/s. Mid SFA 20cm/s Distal SFA 23 cm/s. Proximal popliteal 24 cm/s. Distal popliteal 21 cm/s. ELECTRICIAN SUBSTATION 12 cm/s. LUIS no flow DPA no flow cm/s. IMPRESSION: Monophasic waveforms throughout the left lower extremity suggesting of inflow disease No flow seen in the left anterior tibial artery or dorsalis pedis arteries. DICTATED BY: FRED NUNES MD DATE: 12/31/24920 ELECTRONICALLY SIGNED BY: FRED NUNES MD DATE: 12/31/[address] [place] [address] IMAGING REPORT Signed PATIENT: ZHEN IVEY MR#: [id number] : 1970 SEX: M AGE: 54 LOCATION: 2CH ORDER 1343 STATUS: ADM IN REPORT#: [id number] SERVICE 1342 REASON: abdominal pain ORDERING PHYSICIAN: CHEYENNE HENSON PROCEDURE: ABDOMEN - US ABDOMINAL COMPLETE US ABDOMINAL COMPLETE REASON: 54-year-old male with abdominal pain COMPARISON: None FINDINGS: The visualized portion of the chest demonstrate there is small right-sided pleural effusion. There is grade 1 hepatic steatosis the liver.. The left lobe of the liver is obscured by overlying bowel gas. There are no focal mass lesions. The liver is not enlarged.There is a normal-appearing gallbladder. The gallbladder wall thickness is 0.1 cm. The common bile duct is normal size measuring 0.4 cm. Kidneys appear normal in size and appearance. The right kidney measures 9.8 x 4.3 x 4.9 cm. The left kidney measures 9.8 x 4.7 x 5.1 cm.. There is no evidence of mass, stone or hydronephrosis. Spleen appears normal. The spleen length is 9.7 cm.. Aorta and inferior vena cava appear normal. The pancreas is obscured by overlying bowel gas. IMPRESSION: Small right-sided pleural effusion Otherwise a normal upper abdomen sonogram.. DICTATED BY: FRED NUNES MD DATE: 12/30/24 151 ELECTRONICALLY SIGNED BY: FRED NUNES MD DATE: 12/30/24 1524 PLAN NEURO: Minimize central acting medications as possible. Fall Precautions. Well lighted room through the day and minimize interruptions through the night to prevent acute delirium. PULMONARY: Supplemental 02 as needed Titrate Fio2 to keep Spo2 > or = 90% DuoNebs and CPT as needed IS hourly while awake for pulmonary hygiene Out of bed to chair as tolerated VAP Bundle Vent/BIPAP Settings: [ ] Driving pressure: [ ] P Plat: [ ] Static C: [ ] Static R: [ ] P/F Ratio: [ ] CARDIOVASCULAR: Follow hemodynamics. Titrate vasopressor to keep MAP >65 or systolic blood pressure >95mmHg DIPS: [ ] LINES: [ ] GI & NUTRITION: Continue nutritional support Aspirations precautions Prokinetic agents and laxatives as needed KIDNEYS & ELECTROLYTES: Strict monitoring of intake and output Daily weights Avoid nephrotoxic agents Monitor electrolytes and replace as needed Goal urine output of 30mL/hr or 0.5mL/kg/hr Urine output: [ ] Fluid Balance: [ ] ENDOCRINE: Maintain blood glucose between 100-180 at all times. Insulin sliding scale for blood glucose management INFECTIOUS DISEASE: Trend temperature. Quiñones-culture if febrile. Micro: [ ] Antibiotics: [ ] HEMATOLOGY & COAGULATION: Monitor H&H. Keep Hgb > 7 Transfuse 1 unit of PRBC for Hgb < 7 Transfuse 1 pack of platelets of platelets < 20, 000 Watch for any signs and symptoms of bleeding SKIN: Pressure ulcer prevention per facility protocol Rehab: PT/OT Prophylaxis: GI: [ ] DVT: [ ] Code Status: Full Resuscitation Disposition: [ ] Other: Total patient Critical Care time 48 minutes, time excluded any procedures. Case was discussed and seen with my supervising physician. The above plan was formulated and agreed upon. ATTESTATION BY PHYSICIAN I have seen and examined the patient. I reviewed the documentation, medical decision making, and treatment plan as noted by the resident provider above. I agree with the findings and plan of care. Arnulfo Dickey MD, MANALI MD Jan 01, 2025 22:26
[2025-01-02] VITALS (121 sets, daily range): BP systolic 121–185; BP diastolic 65–107; PULSE 76–96; RESP 11–36; TEMP 98–98.4; O2SAT 97–100
[2025-01-02 04:18] LABS: NUCLEATED RED BLOOD CELLS 3.6 % (0.0-0.19); PLATELET COUNT (AUTO) 157.0 K/uL (130-400); RED BLOOD CELL COUNT(AUTO) 3.81 MIL/uL (4.50-6.20); RED CELL DISTRIBUTION WIDTH 22.0 % (11.0-15.5); WHITE BLOOD COUNT (AUTO) 6.8 K/uL (4.8-10.8)
[2025-01-02 04:28] LABS: CREATININE 6.4 mg/dL (0.5-1.3); GLOMERULAR FILTR. RATE CALC 10.0 mL/min (>90); GLUCOSE,RANDOM 106.0 mg/dL (70-105); SODIUM SERUM 147.0 mmol/L (136-145); UREA NITROGEN, BLOOD 51.0 mg/dL (7-18)
--- NOTE | 2025-01-02 04:51 | NUR ---
RE: Positive occult blood Dorothy ICHTHYOLOGY TEACHER for critical care made aware of pt with positive occult blood. Per Dorothy doss/minal pablo. Start pt on protonix 40 mg IV BID first dose now. Consult GI for positive occult blood. Inform Dr. Ames later this morning of MD ryan to manage argatroban drip.
--- NOTE | 2025-01-02 08:46 | HMCSR ---
APPROVED REPORT EXAM: Two-dimensional and M-mode echocardiogram with Doppler and color Doppler. Study Details: CP , HTN INDICATION ICD: post op hypotension / reassess 2D Dimensions RVDd4.5 cmLVEF(%)34.1 (>50%)LVED Vol(simp.)97.7 mL IVSd0.9 (0.7-1.1cm)FS(%)16 %LVES Vol(simp.)76.8 mL LVDd4.2 (3.8-5.6cm)LA (2D)2.7 (1.6-4.0cm)LVEF(%, simp.)21 % PWd0.8 (0.7-1.1cm)Ao Root(2D)2.8 (2.0-3.7cm)LA ESV INDEX (BP)21.01 mL/m2 IVSs1.1 cmLVOT diam1.9 (1.8-2.4cm) LVDs3.5 (2.5-4.0cm) PWs1.1 cm Deformation Strain Apical 44.3 % Apical 21.6 % Apical 32.4 % Global Strain2.4 % M-Mode Dimensions EPSS1.2 cm LA (MM)3.6 (1.6-4.0cm) Ao Root(MM)3.2 (2.0-3.7cm) Aortic Valve AoV Vmax1.0 m/Sandy Peak GR4.1 mmHgLVOT Vmax0.6 m/s AoV VTI0.2 mAo Mean GR2.5 mmHgLVOT VTI0.10 m MARGARITA (VMAX)1.62 cm2AVA (VTI) 1.7 cm2 Mitral Valve MV E Vmax54.6 cm/sDECEL Cxxf017 ms MV A Vmax54.6 cm/sP 1/2 T49 ms E/A ratio1.0MVA (PHT)4.5 cm2 TDI E/E' Ghjlgg89.7E/E' Bihluzy69.7 Medial E' Peak V3.99 cm/sLateral E' Peak V2.92 cm/s Pulmonary Valve PV Vmax0.5 m/sPV VTI0.08 mPV Mean GR0.7 mmHg PV Peak GR1.0 mmHg Tricuspid Valve TR Vmax2.5 m/sRVSP25.3 mmHg TR Peak GR25.3 mmHg Left Ventricle The left ventricle is mildly dilated. Hyopkinetic anterior wall and apex. Global strain of -25. There is moderate concentric left ventricular hypertrophy.. LVEF is 25-30%. 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 Indeterminate diastolic dysfunction. Right Ventricle The right ventricle is mildly dilated. Right ventricular systolic function is moderately to severely reduced. Atria The left atrium size is normal. The right atrium size is normal. Aortic Valve The aortic valve is not well visualized. No aortic regurgitation is present. There is mild valvular a ortic stenosis. Mitral Valve The mitral valve is mildly thickened. There is no mitral valve regurgitation noted. There is no linda l valve stenosis. Tricuspid Valve Tricuspid valve is not well visualized. trace tricuspid regurgitation. Pulmonic Valve The pulmonary valve is normal in structure and function. There is no pulmonic valvular regurgitation. Great Vessels The aortic root is normal in size. IVC is not well visualized. Pericardium not well visualized Conclusion The left ventricle is mildly dilated. LVEF is 25-30%. Hyopkinetic anterior wall and apex. Global strain of -25. 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
[2025-01-02] MEDS ORDERED: FAMOTIDINE 20MG VIAL IV SCH (09:00)
--- NOTE | 2025-01-02 09:48 | NUR ---
Dr. Ames called this morning to inform patient laboratory tested positive occult blood from last night bowel movement. There is a consult for gastro at this time, not to call until further notice. Patient is frail at this time. Orders to maintain gtts at the same rate do bedside swallow study if he fails to give him 200mls of free water every six hours.
--- NOTE | 2025-01-02 10:29 | PN ---
[facility] PROGRESS NOTE Date Patient Seen: Jan 02, 2025 Time of Visit: 10:26 Supervising Physician: Dr Sauceda Primary Care Physician: [ ] Outpatient Specialists: [ ] Inpatient Consults: [ ] PROBLEM LIST: Multi-vessel coronary artery disease status post CABG 12/28/2024 Acute left lower extremity ischemia, Left LE Arterial occlusion S/P removal of IABP and thrombectomy LE 12/31/24 Non-STEMI Acute metabolic encephalopathy - multifactorial Mild ischemic cardiomyopathy with LVEF 45-50 by left heart catheterization. Hypertension Anemia Acute kidney injury with hyperkalemia INTERVAL HISTORY: Patient was seen and examined, all labs and imaging have been reviewed. No acute events overnight, patient is more alert, remains with sitter but patent mittens have been removed and he is following commands Patient continues on Dobutrex at 2, Lasix drip Urine output was 1.2 L overnight Chest tube output 170 overnight, declining GFR, 10 this morning He remains on the argatroban drip, good pulses to lower extremities Hemoglobins remained stable Stool was positive for occult blood, reported as dark, GI consulted, urine is clear and again hemoglobin stable Plan: Continue follow Cardiothoracic Surgeons postop protocol Neurovascular checks to lower extremities Monitor for bleeding Electrolyte protocol Daily labs and chest x-rays in a.m. PT/OT when able Follow cardiology recs Follow nephrology recs Follow GI recs REVIEW OF SYSTEMS: 12 point ROS reviewed with patient. Pertinent positives mentioned above. Otherwise negative. PHYSICAL EXAM: GENERAL: altered, on precedex HEENT: EOMI, Sclera non icteric, moist mucosa NECK: Supple, no JVD, trachea midline LUNGS: Chest tubes in place, HEART: Regular rate and rhythm. Normal S1 and S2, without murmurs ABD: Abdomen soft, nontender. Bowel sounds present EXT: No clubbing cyanosis or edema NEURO: mittens Vital Signs (last 8hr) Date Time Temp Pulse Resp B/P (MAP) Pulse Ox O2 Delivery O2 Flow Rate FiO2 01/02/25 09:45 82 22 143/78 (99) 96 32 01/02/25 09:41 90 25 144/74 (97) 83 32 142/99 (113) 01/02/25 09:30 85 20 148/81 (103) 97 32 01/02/25 09:15 86 21 153/79 (103) 95 32 01/02/25 09:00 92 25 159/86 (110) 98 32 01/02/25 08:45 90 26 161/85 (110) 98 32 01/02/25 08:41 88 18 165/90 (115) 97 32 161/101 (121) 01/02/25 08:30 94 22 167/89 (115) 98 32 01/02/25 08:30 138/95 01/02/25 08:15 89 16 154/78 (103) 96 32 01/02/25 08:11 91 28 153/76 (101) 97 32 151/95 (113) 01/02/25 08:00 90 14 153/78 (103) 94 32 01/02/25 08:00 98.4 Nasal Cannula 3.0 01/02/25 08:00 99 Nasal Cannula* 3 32 01/02/25 07:45 84 29 137/69 (91) 97 32 01/02/25 07:41 85 27 150/73 (98) 99 32 149/91 (110) 01/02/25 07:30 88 22 162/82 (108) 100 32 01/02/25 07:15 95 19 152/77 (102) 99 32 01/02/25 07:11 90 21 159/79 (105) 100 32 144/99 (114) 01/02/25 07:00 93 29 150/75 (100) 96 32 01/02/25 06:45 88 17 150/74 (99) 99 138/95 (109) 01/02/25 06:33 87 20 N/Cannula Low lpm 3.0 32 01/02/25 06:31 87 20 01/02/25 06:30 89 15 152/76 (101) 97 01/02/25 06:15 85 16 153/82 (105) 96 138/96 (110) 01/02/25 06:00 91 18 170/92 (118) 99 01/02/25 05:45 88 32 163/85 (111) 95 147/102 (117) 01/02/25 05:30 90 18 156/79 (104) 96 01/02/25 05:15 88 20 134/66 (88) 97 137/80 (99) 01/02/25 05:00 87 20 152/80 (104) 97 01/02/25 04:45 91 21 164/85 (111) 97 149/99 (116) 01/02/25 04:30 88 18 161/83 (109) 97 01/02/25 04:15 89 12 160/82 (108) 99 146/93 (110) 01/02/25 04:00 98.1 88 16 161/85 (110) 96 01/02/25 03:45 88 19 121/77 (92) 100 156/96 (116) 01/02/25 03:30 90 20 165/85 (111) 100 01/02/25 03:15 88 21 157/78 (104) 100 144/94 (111) 01/02/25 03:00 90 11 158/79 (105) 100 01/02/25 03:00 99 Nasal Cannula* 3 32 01/02/25 02:45 88 22 155/79 (104) 100 137/100 (112) 01/02/25 02:30 90 20 137/76 (96) 100 LABS: Hematology Labs: Test 01/02/25 04:02 Range/Units White Blood Count 6.8 4.8-10.8 K/uL Red Blood Count 3.81 L 4.50-6.20 MIL/uL Hemoglobin 9.7 L 14.0-18.0 g/dL Hematocrit 30.1 L 42-54 % Mean Corpuscular Volume 79.0 79-99 fL Mean Corpuscular Hemoglobin 25.5 L 27.0-33.0 pg Mean Corpuscular Hemoglobin Concent 32.2 32.0-36.0 g/dL Red Cell Distribution Width 22.0 H 11.0-15.5 % Platelet Count 157 130-400 K/uL Mean Platelet Volume 10.6 H 7.5-10.5 fL Nucleated Red Blood Cells 3.6 H 0.0-0.19 % Chemistry Labs: Test 01/02/25 04:02 12/31/24 20:12 12/31/24 16:24 Range/Units Sodium Level 147 H 136-145 mmol/L Potassium Level 3.8 3.5-5.1 mmol/L Chloride Level 107 101-111 mmol/L Carbon Dioxide Level 28 21-32 mmol/L Blood Urea Nitrogen 51 H 7-18 mg/dL Creatinine 6.4 H 0.5-1.3 mg/dL Glomerular Filtration Rate Calc 10 >90 mL/min Random Glucose 106 H 70-105 mg/dL Total Calcium 8.7 8.5-10.1 mg/dL Whole Blood Glucose 119 H 70-110 MG/DL Total Creatine Kinase 628 *H 21-232 U/L Coagulation Labs: Test 01/02/25 04:02 Range/Units Activated Partial Thromboplast Time 58.7 H 26.3-35.5 SEC DIAGNOSTICS / RADIOLOGY RESULTS: [ ] PLAN NEURO: Minimize central acting medications as possible. Fall Precautions. Well lighted room through the day and minimize interruptions through the night to prevent acute delirium. PULMONARY: Supplemental 02 as needed Titrate Fio2 to keep Spo2 > or = 90% DuoNebs and CPT as needed IS hourly while awake for pulmonary hygiene Out of bed to chair as tolerated VAP Bundle Vent/BIPAP Settings: [ ] Driving pressure: [ ] P Plat: [ ] Static C: [ ] Static R: [ ] P/F Ratio: [ ] CARDIOVASCULAR: Follow hemodynamics. Titrate vasopressor to keep MAP >65 or systolic blood pressure >95mmHg DIPS: [ ] LINES: [ ] GI & NUTRITION: Continue nutritional support Aspirations precautions Prokinetic agents and laxatives as needed KIDNEYS & ELECTROLYTES: Strict monitoring of intake and output Daily weights Avoid nephrotoxic agents Monitor electrolytes and replace as needed Goal urine output of 30mL/hr or 0.5mL/kg/hr Urine output: [ ] Fluid Balance: [ ] ENDOCRINE: Maintain blood glucose between 100-180 at all times. Insulin sliding scale for blood glucose management INFECTIOUS DISEASE: Trend temperature. Quiñones-culture if febrile. Micro: [ ] Antibiotics: [ ] HEMATOLOGY & COAGULATION: Monitor H&H. Keep Hgb > 7 Transfuse 1 unit of PRBC for Hgb < 7 Transfuse 1 pack of platelets of platelets < 20, 000 Watch for any signs and symptoms of bleeding SKIN: Pressure ulcer prevention per facility protocol Rehab: PT/OT Prophylaxis: GI: [ ] DVT: [ ] Code Status: Full Resuscitation Disposition: [ ] Other: Total patient Critical Care time 44 minutes, time excluded any procedures. Case was discussed and seen with my supervising physician. The above plan was formulated and agreed upon. CHEYENNE HENSON Jan 02, 2025 10:29
--- NOTE | 2025-01-02 11:35 | PN ---
FOLLOWUP PROGRESS NOTE SUBJECTIVE: A 54-year-old male with a history of ____ mild hypertension. He initially presented with coronary artery disease. The patient is status post coronary artery bypass graft. He has had acute renal failure postoperatively. Urine output has been maintained. The patient is being seen as a followup visit for all of the above. He remains on Lasix. REVIEW OF SYSTEMS: He is feeling improved. REVIEW OF SYSTEMS: HEENT: No change in vision. No change in hearing. CARDIOVASCULAR: There is no current chest pain or palpitations. PULMONARY: No shortness of breath. GASTROINTESTINAL: He is being evaluated by speech therapy. MUSCULOSKELETAL: Complains of weakness. PHYSICAL EXAMINATION: VITAL SIGNS: Blood pressure is 152/76, pulse 80s, afebrile. GENERAL: Chronically ill male, older than appearing. HEENT: Head is atraumatic. Pupils equal, roving to light. Oropharynx is without exudate. Nares clear. NECK: There is no JVP. There is no thyromegaly. No mass. CARDIOVASCULAR: Regular. There is no S3 or S4 gallop. LUNGS: Coarse with equal thoracic movement. ABDOMEN: Soft, nondistended, and nontender. EXTREMITIES: No clubbing, no cyanosis. NEUROLOGIC: He is awake. He is alert. LABORATORY DATA: Hemoglobin 9.7, hematocrit 30. Sodium 145, BUN 51, creatinine 6. IMPRESSION: * Acute on chronic renal dysfunction. * Coronary artery disease, status post CABG. * Diabetes mellitus. * Anemia. PLAN: The patient's urine output has greatly improved. The patient remains on the diuretics. There is no acute need for any form of renal replacement therapy. He has become much more hemodynamically stable. We will continue to follow closely. Workup is ongoing per Cardiovascular Surgery. All labs will be repeated in the morning. TID: [id number] RECEIPT: [id number]
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
--- NOTE | 2025-01-02 12:49 | HMCIMG ---
EXAM: XR Chest, 1 View. CLINICAL HISTORY: 54-year-old male with Coronary artery bypass graft. COMPARISON: 01/01/2025. FINDINGS: LUNGS: Note is made of small bilateral pleural effusions. PLEURAL SPACES: See above. HEART: Mild cardiomegaly is present. BONES: No acute osseous abnormality. LINES AND TUBES: The nasogastric tube is projected over the central chest. Right internal jugular central line is in place. Endotracheal tube was present in the previous study dated 01/01/2025, but is not visualized on the current study. IMPRESSION: 1. Mild cardiomegaly and small bilateral pleural effusions, similar to the prior study. 2. Right internal jugular central line in place with associated tenderness. 3. Nasogastric tube in place. /[place]
--- NOTE | 2025-01-02 13:51 | PN ---
[facility] PROGRESS NOTE Date of Service: Jan 02, 2025 Time of Service: 13:50 SUBJECTIVE: This is a 54-year-old male who presented to [facility] with a non-STEMI. He underwent left heart catheterization which showed severe multi-vessel coronary artery disease with mid to apical inferior hypokinesis, LVEF 45-50%. He underwent echocardiogram 12/19/2024 which showed an ejection fraction of 55- 60%, mild LVH, normal-sized left atrium, mild mitral valve regurgitation and mild tricuspid valve regurgitation. He was transferred to [facility] for CABG. 12/25 patient remains admitted to the PCU, case discussed with the RN, no acute events overnight, he denied chest pain, shortness shortness for breath, no nausea, no vomiting, no abdominal discomfort. Cardiology input noted and appreciated, patient to continue aspirin 81 mg p.o. daily and atorvastatin 40 mg p.o. daily. Continue metoprolol tartrate 25 mg p.o. b.i.d.. Pending evaluation by CT surgery for consideration for CABG. Discussed with the patient. 12/26 patient remains admitted to the PCU, case discussed with the RN, no acute events overnight, the time of my visit the patient is comfortably in bed, alert oriented x3, eating breakfast, tolerating well, denies nausea, no vomiting, no abdominal discomfort, he denies chest pain, no shortness a breath. Remains on aspirin 81 mg p.o. daily, atorvastatin and metoprolol 25 mg p.o. b.i.d.. Pending evaluation by CT surgery for consideration of CABG. 12/27 patient is seen and examined at bedside, case discussed with the RN, no acute events overnight, currently the patient NPO, scheduled for CABG today by Cardiothoracic surgeon. We will continue to follow. 12/28 patient is seen and examined at bedside, case discussed with the RN, no acute events overnight, currently the patient NPO, scheduled for CABG today by Cardiothoracic surgeon. We will continue to follow. 12/29 patient is seen and examined at bedside, remains admitted to the ICU, postoperative day 1., status post CABG 12/28/2024, patient on insulin drip, nitroglycerin drip, alert oriented x3 following commands, however was mildly agitated earlier this morning, motion with the RN started on Precedex. Patient with chest tube in place. Further recommendations per Cardiothoracic surgeon. 12/30 patient remains admitted to the ICU, case discussed with the RN, patient remains confused, trying to pull his IV lines, remains on Precedex. Throughout the balloon pump in place, just to be breath, remains on epinephrine, Levophed, Lasix drip, dobutamine drip. Creatinine today at 3.0. Nephrology consultation requested, we will follow input and recommendation. Continue to monitor liver enzymes in a.m., follow ammonia level (at the time of my dictation less than 10). Continue to follow critical care input and recommendation. Prognosis remains guarded. 12/31 54-year-old male who was transferred from [facility] with a non- STEMI. He underwent left heart catheterization which showed severe multi-vessel coronary artery disease with mid to apical inferior hypokinesis, LVEF 45-50%. He underwent echocardiogram 12/19/2024 which showed an ejection fraction of 55- 60%, mild LVH, normal-sized left atrium, mild mitral valve regurgitation and mild tricuspid valve regurgitation. He was transferred to [facility] [place] for CABG. Cardiothoracic surgeon consultation requested, patient underwent CABG 12/28/2024. Continue to follow Cardiothoracic input and recommendations. Patient has been mildly confused post procedure, started on Precedex. 01/01 54-year-old male who was transferred from [facility] with a non- STEMI. He underwent left heart catheterization which showed severe multi-vessel coronary artery disease with mid to apical inferior hypokinesis, LVEF 45-50%. He underwent echocardiogram 12/19/2024 which showed an ejection fraction of 55- 60%, mild LVH, normal-sized left atrium, mild mitral valve regurgitation and mild tricuspid valve regurgitation. He was transferred to [facility] [place] for CABG. Cardiothoracic surgeon consultation requested, patient underwent CABG 12/28/2024. At the time of my visit resting comfortably in bed, off Precedex, following commands, status post interval removal of intra-aortic balloon pump yesterday, remains on dobutamine and nitroglycerin drip as well as argatroban. Continue to follow critical Care and Cardiothoracic input and recommendations. 01/02/25: Patient was evaluated at the bedside. Today is postop Day 5 and he is recovering well. Patient underwent thrombectomy in the femoral artery of left lower extremity and removal of intra-aortic balloon pump yesterday. Patient has mottled appearance in the left great toe and dorsalis pedis pulsations are present. His chest tube output was 320 mL over the last 24 hours. His stool was positive for occult blood and a GI consult has been placed. Cardiology advised to continue the current treatment. Patient is weaned off Levophed and is currently on Lasix, dobutamine, nitroglycerin, and argatroban drips. A swallow test will be performed today to evaluate the need for removing NG tube. REVIEW OF SYSTEMS CONSTITUTIONAL: Denies fevers, chills, or night sweats. No unintentional weight loss reported. NEUROLOGICAL: Denies headache, amaurosis fugax, motor weakness, sensory deficit, vertigo/spinning sensation, gait abnormalities, or tremors. ENT: No hearing loss, otalgia, otorrhea, rhinitis, rhinorrhea, hoarseness, or sore throat. CARDIOVASCULAR: Denies any exertional angina, dyspnea on exertion, orthopnea, paroxysmal nocturnal dyspnea, palpitations, life-threatening arrhythmias, claudication. PULMONARY: Denies any shortness of breath, cough, phlegm/sputum, hemoptysis, pleuritic chest pain. SLEEP: Denies morning headaches, daytime somnolence or napping. Denies difficulty falling asleep, staying asleep, waking from sleep. Denies knowledge of snoring. GASTROINTESTINAL: Denies any type of dysphagia to either liquids or solids. Denies nausea, vomiting, pyrosis, early satiety, abdominal pain, diarrhea, constipation, or changes in stool consistency or caliber. Denies coffee-ground emesis, hematemesis, hematochezia, or melanotic stools. GENITOURINARY: Denies frequency, urgency, nocturia, hematuria or incontinence (Storage/Irritative symptoms.) Low urinary stream, straining to void, urinary intermittency or hesitancy, splitting of the voiding stream, terminal dribbling. ENDOCRINOLOGIC: Denies polyuria, polydipsia, polyphagia or heat/cold intolerances. HEMATOLOGIC: Denies thrombophilia/previous clots, or coagulopathy/bleeding disorders. ONCOLOGIC: Denies personal history of malignancy. DERMATOLOGIC: Denies rashes or pruritus. PSYCHIATRIC: Denies any suicidal or homicidal ideation. Denies hallucinations. PHYSICAL EXAM GENERAL APPEARANCE: Patient is confused, trying to pull his IV lines, on Precedex. NEUROLOGICAL: Cranial nerves II-XII grossly intact. Motor is 5/5 in bilateral upper and lower extremities proximal to distal. No sensory deficits. HEENT: Face is symmetric. Pupils are equal and reactive. Extraocular movements are intact. NECK: Supple. No JVD. No thyromegaly. No submental, submandibular, pre- /postauricular, occipital or supraclavicular lymphadenopathy. CHEST: Normal chest expansion. No Telemetry. LUNGS: Absence of any rales, rhonchi or any wheezing. Chest tube in place. CARDIOVASCULAR: Regular. S1 and S2 normal. No appreciable rubs, murmurs or gallops. ABDOMEN: Soft, nontender, and nondistended. There is no rebound, voluntary gu arding, or rigidity. : Deferred. No Andres. EXTREMITIES: Non-edematous and not cyanotic. No clubbing. Good capillary refill. SKIN: No skin breakdown. Vital Signs (last 8hr) Date Time Temp Pulse Resp B/P (MAP) Pulse Ox O2 Delivery O2 Flow Rate FiO2 01/02/25 13:00 88 25 152/80 (104) 99 32 01/02/25 12:45 85 21 149/80 (103) 100 32 01/02/25 12:41 88 25 148/78 (101) 100 32 135/82 (99) 01/02/25 12:33 143/78 01/02/25 12:30 87 23 153/83 (106) 79 32 01/02/25 12:15 86 23 152/82 (105) 87 01/02/25 12:00 87 29 143/76 (98) 100 01/02/25 11:55 87 23 146/76 (99) 99 32 152/106 (121) 01/02/25 11:45 91 20 131/65 (87) 99 01/02/25 11:30 84 18 155/82 (106) 100 32 01/02/25 11:15 82 17 151/82 (105) 99 32 01/02/25 11:04 86 20 N/Cannula Low lpm 3.0 01/02/25 11:02 86 20 01/02/25 11:00 85 21 151/82 (105) 99 32 01/02/25 10:45 85 23 159/88 (111) 92 32 01/02/25 10:41 86 22 149/80 (103) 99 32 139/93 (108) 01/02/25 10:30 84 22 154/85 (108) 100 32 01/02/25 10:15 89 26 152/82 (105) 100 32 01/02/25 10:00 84 18 127/68 (87) 100 32 01/02/25 09:45 82 22 143/78 (99) 96 32 01/02/25 09:41 90 25 144/74 (97) 83 32 142/99 (113) 01/02/25 09:30 85 20 148/81 (103) 97 32 01/02/25 09:30 143/78 01/02/25 09:15 86 21 153/79 (103) 95 32 01/02/25 09:00 92 25 159/86 (110) 98 32 01/02/25 08:45 90 26 161/85 (110) 98 32 01/02/25 08:41 88 18 165/90 (115) 97 32 161/101 (121) 01/02/25 08:30 94 22 167/89 (115) 98 32 01/02/25 08:30 138/95 01/02/25 08:15 89 16 154/78 (103) 96 32 01/02/25 08:11 91 28 153/76 (101) 97 32 151/95 (113) 01/02/25 08:00 90 14 153/78 (103) 94 32 01/02/25 08:00 98.4 Nasal Cannula 3.0 01/02/25 08:00 99 Nasal Cannula* 3 32 01/02/25 07:45 84 29 137/69 (91) 97 32 01/02/25 07:41 85 27 150/73 (98) 99 32 149/91 (110) 01/02/25 07:30 88 22 162/82 (108) 100 32 01/02/25 07:15 95 19 152/77 (102) 99 32 01/02/25 07:11 90 21 159/79 (105) 100 32 144/99 (114) 01/02/25 07:00 93 29 150/75 (100) 96 32 01/02/25 06:45 88 17 150/74 (99) 99 138/95 (109) 01/02/25 06:33 87 20 N/Cannula Low lpm 3.0 32 01/02/25 06:31 87 20 01/02/25 06:30 89 15 152/76 (101) 97 01/02/25 06:15 85 16 153/82 (105) 96 138/96 (110) 01/02/25 06:00 91 18 170/92 (118) 99 LABS: Laboratory: Test 01/02/25 12:29 01/02/25 04:02 01/02/25 00:27 01/01/25 11:36 Range/Units Whole Blood Glucose 87 70-110 MG/DL White Blood Count 6.8 4.8-10.8 K/uL Red Blood Count 3.81 L 4.50-6.20 MIL/uL Hemoglobin 9.7 L 14.0-18.0 g/dL Hematocrit 30.1 L 42-54 % Mean Corpuscular Volume 79.0 79-99 fL Mean Corpuscular Hemoglobin 25.5 L 27.0-33.0 pg Mean Corpuscular Hemoglobin Concent 32.2 32.0-36.0 g/dL Red Cell Distribution Width 22.0 H 11.0-15.5 % Platelet Count 157 130-400 K/uL Mean Platelet Volume 10.6 H 7.5-10.5 fL Nucleated Red Blood Cells 3.6 H 0.0-0.19 % Activated Partial Thromboplast Time 58.7 H 26.3-35.5 SEC Sodium Level 147 H 136-145 mmol/L Potassium Level 3.8 3.5-5.1 mmol/L Chloride Level 107 101-111 mmol/L Carbon Dioxide Level 28 21-32 mmol/L Blood Urea Nitrogen 51 H 7-18 mg/dL Creatinine 6.4 H 0.5-1.3 mg/dL Glomerular Filtration Rate Calc 10 >90 mL/min Random Glucose 106 H 70-105 mg/dL Total Calcium 8.7 8.5-10.1 mg/dL Total Creatine Kinase 494 #*H 21-232 U/L Stool Occult Blood POSITIVE H NEGATIVE Blood Gas Specimen Type Arterial Arterial Blood pH 7.512 H 7.350-7.450 Arterial Blood Partial Pressure CO2 31 L 35-48 mmHg Arterial Blood Partial Pressure O2 99.9 83.0-108.0 mmHg Arterial Blood HCO3 24.2 21.0-28.0 mmol/L Arterial Blood Oxygen Saturation 97.1 94.0-98.0 % Arterial Blood Base Excess 1.7 -2.0-3.0 mmol/L Hemoglobin (Blood Gas) 10.4 L 13.5-17.5 g/dL Sodium (Blood Gas) 142 136-145 MMOL/L Bedside Potassium (Blood Gas) 4.0 3.4-4.5 MMOL/L Bedside Chloride (Blood Gas) 106 98-107 MMOL/L Bedside Glucose (Blood Gas) 132 H 65-95 MG/DL Bedside Ionized Calcium (Blood Gas) 1.19 1.15-1.33 MMOL/L Bedside Lactic Acid (Blood Gas) 2.00 H 0.36-0.75 MMOL/L Blood Gas Temperature 37.0 35.5-37.0 CELSIUS Blood Gas Flow-by 10.00 0.00-15.00 L/min Blood Gas Vent Mode CAFM ROOM AIR FiO2 40.0 % Blood Gas Specimen Comment A-LINE ARELY Test 01/01/25 08:50 Range/Units Blood Gas Respiration Rate 4.0 min. Blood Gas Tidal Volume 600 ml Blood Gas PEEP 5 cm H2O Current Medications Medications (Trade) Dose Ordered Sig/Mila Route PRN Reason Start Time Stop Time Status Last Admin Dose Admin Acetaminophen (TYLenol 325MG TAB) 650 mg Q4H PRN PO Temp >38.3C(AFTER EXTUBATION) 12/28/24 14:00 01/27/25 13:59 Acetaminophen (TYLenol 325MG TAB) 650 mg Q6H PRN PO MILD PAIN (1-3) 12/24/24 01:30 12/28/24 13:57 DC 12/27/24 23:45 650 MG Acetaminophen (TYLenol 325MG TAB) 650 mg Q6H PRN PO TEMPERATURE GREATER THAN 101.5 12/24/24 03:00 12/28/24 14:10 DC Acetaminophen (TYLenol 325MG TAB) 650 mg Q6H PRN PO MILD PAIN (1-3) 12/28/24 14:00 01/27/25 13:59 12/30/24 07:51 650 MG Acetaminophen (TYLenol 650MG SUPPOSITORY) 650 mg Q4H PRN RC Temp >38.3C WHILE INTUBATED 12/28/24 14:00 01/27/25 13:59 Acetaminophen (acetaMINOPHEN) 1,000 mg Q6H6 IV 12/28/24 18:00 12/29/24 17:59 DC 12/29/24 17:27 1,000 MG Acetaminophen (acetaMINOPHEN) 1,000 mg Q6H6 IVPB 12/30/24 00:00 12/31/24 20:14 DC 12/30/24 18:16 1,000 MG Albumin Human 250 ml @ 0 mls/hr AD PRN IV IF HEMODYNAMICALLY UNSTABLE 12/28/24 14:00 12/29/24 09:28 DC 12/29/24 09:28 250 MLS/HR Albuterol (DUOneb) 1 UDVIAL [id number] IH 01/01/25 18:00 01/01/25 15:25 DC Albuterol Sulfate (Proventil 0.083% 2.5mg/3ml) 2.5 mg ONCE STAT IH 12/30/24 10:22 12/30/24 10:32 DC 12/30/24 10:43 2.5 MG Aminocaproic Acid 91861 mg/Sodium Chloride 310 ml @ 25 mls/hr AD IV 12/28/24 14:00 12/28/24 14:14 DC Aminocaproic Acid 82288 mg/Sodium Chloride 480 ml @ 0 mls/hr AD PRN IV BLEEDING CONTROL 12/27/24 11:00 01/26/25 10:59 Argatroban 250 mg/ Sodium Chloride 250 ml @ 0 mls/hr PROTOCOL IV 12/31/24 16:30 01/30/25 16:29 12/31/24 22:32 2.61 MLS/HR Aspirin (Aspirin 81mg Ec Tab) 81 mg DAILY PO 12/24/24 09:00 01/23/25 08:59 01/01/25 09:16 81 MG Atorvastatin Calcium (LIPItor 40MG) 40 mg HS PO 12/24/24 21:00 01/01/25 11:16 DC 12/31/24 20:44 40 MG Bisacodyl (DulcoLAX) 10 mg DAILY PRN RC CONSTIPATION - MOM INEFFECTIVE 12/29/24 14:00 01/28/25 13:59 12/30/24 11:05 10 MG Calcium Gluconate 1 gm/Sodium Chloride 60 ml @ 200 mls/hr AD PRN IV HYPOCALCEMIA 12/28/24 14:00 01/27/25 13:59 01/01/25 01:52 200 MLS/HR Cefazolin Sodium (ANCEF 1 gm vial) 2 gm ONCALL IVP 12/26/24 16:30 12/26/24 16:28 DC Cefazolin Sodium (Ancef) 2 gm ONCALL PRN IVP SURGERY 12/26/24 16:30 12/28/24 13:57 DC Cefazolin Sodium (Ancef) 2 gm Q8H IVPB 12/28/24 19:00 12/29/24 11:01 DC 12/29/24 11:04 2 GM Dexmedetomidine/ Sodium Chloride (PRECEdex 400MCG/ 100ML-NS) 400 mcg PROTOCOL IV 12/28/24 14:00 12/29/24 13:59 DC 12/29/24 12:16 400 MCG Dexmedetomidine/ Sodium Chloride (PRECEdex 400MCG/ 100ML-NS) 400 mcg PROTOCOL IV 12/29/24 18:00 01/28/25 17:59 12/31/24 06:05 400 MCG Dextrose (D50w) 50 ml AD PRN IV HYPOGLYCEMIA PROTOCOL 12/28/24 14:00 01/27/25 13:59 Dextrose (D50w) 50 ml ONCE STAT IV 12/30/24 11:36 12/30/24 11:39 DC 12/30/24 11:45 50 ML Dextrose/Sodium Chloride 1,000 ml @ 50 mls/hr Q20H IV 12/30/24 11:30 01/01/25 16:17 DC 01/01/25 02:09 50 MLS/HR Dobutamine HCl/ Dextrose 250 ml @ 0 mls/hr PROTOCOL IV 12/29/24 14:00 01/28/25 13:59 01/02/25 08:30 8.3 MLS/HR Docusate Sodium (COLace 100MG CAP) 100 mg BID PO 12/28/24 21:00 12/29/24 08:01 DC 12/28/24 20:53 100 MG Docusate Sodium (COLace LIQUID 100MG/10ML) 100 mg BID PO 12/29/24 08:00 01/28/25 07:59 01/01/25 20:14 100 MG Enoxaparin Sodium (Lovenox) 30 mg DAILY SQ 12/31/24 09:00 12/31/24 16:12 DC Epinephrine HCl 10 mg/Sodium Chloride 250 ml @ 0 mls/hr AD PRN IV TITRATE 12/27/24 11:00 01/26/25 10:59 12/30/24 04:29 0 MLS/HR Epinephrine HCl 10 mg/Sodium Chloride 250 ml @ 0 mls/hr AD PRN IV POST-OP CARDIOVASCULAR ORDERS 12/28/24 14:00 12/28/24 14:14 DC Famotidine (Pepcid 20mg Vial) 20 mg BID IV 12/28/24 21:00 12/31/24 20:20 DC 12/31/24 08:51 20 MG Famotidine (Pepcid 20mg Vial) 20 mg Q48H IV 01/02/25 09:00 01/02/25 04:51 DC Famotidine (Pepcid 20mg Tab) 20 mg DAILY PO 12/24/24 09:00 12/28/24 13:54 DC 12/26/24 10:19 20 MG Furosemide (LASix 20MG TAB) 20 mg Q12H PO 12/30/24 09:00 12/30/24 08:34 DC Furosemide (LASix 20MG VIAL) 20 mg Q12H IV 12/29/24 09:00 12/30/24 08:34 DC 12/29/24 09:20 20 MG Furosemide 100 mg/ Sodium Chloride 100 ml @ 0 mls/hr PROTOCOL IV 12/29/24 14:30 01/28/25 14:29 01/02/25 08:48 10 MLS/HR Glucagon (Glucagon 1mg Kit) 1 mg AD PRN IM HYPOGLYCEMIA PROTOCOL 12/28/24 14:00 01/27/25 13:59 Heparin Sodium (Porcine) (HEParin 5,000 UNIT VIAL) *calculation based on ACTUAL B... AD PRN IV HEPARIN PROTOCOL 12/24/24 02:30 12/28/24 13:54 DC 12/24/24 17:32 5,000 UNIT Heparin Sodium/ Dextrose 250 ml @ 0 mls/hr Q6H IV 12/24/24 02:30 12/28/24 13:54 DC 12/27/24 17:04 11.3 MLS/HR Hydralazine HCl (APRESOLine 20MG INJ) 10 mg Q6H PRN IV For:SBP above 160;DBP above 90 12/24/24 03:00 12/28/24 13:54 DC Insulin Human Regular (humuLIN R 100 UNIT/ML 3ML) 10 unit ONCE STAT IV 12/30/24 11:42 12/30/24 11:45 DC 12/30/24 12:01 10 UNIT Insulin Human Regular (humuLIN R 100 UNIT/ML 3ML) 10 unit ONCE STAT SQ 12/30/24 11:36 12/30/24 11:43 DC Insulin Human Regular 100 unit/ Sodium Chloride 100 ml @ 0 mls/hr AD IV 12/28/24 14:00 12/29/24 17:55 DC 12/28/24 17:09 5 MLS/HR Ipratropium [place] (AtrovENT UD) 0.5 mg [id number] IH 12/30/24 12:00 01/29/25 11:59 01/02/25 11:02 0.5 MG Lactulose (Constulose 20gm/ 30ml Udcup) 20 gm BID PRN PO CONSTIPATION 12/24/24 03:00 12/28/24 13:54 DC 12/26/24 21:30 20 GM Lactulose (Constulose 20gm/ 30ml Udcup) 20 gm BID PRN PO CONSTIPATION 12/28/24 14:00 01/27/25 13:59 12/30/24 07:50 20 GM Lidocaine HCl/ Dextrose 250 ml @ 0 mls/hr AD PRN IV TITRATE 12/28/24 22:30 12/29/24 16:00 DC 12/29/24 06:53 15 MLS/HR Magnesium Hydroxide (Milk Of Magnesium 30ml) 30 ml DAILY PRN PO CONSTIPATION 12/28/24 14:00 01/27/25 13:59 12/30/24 10:18 30 ML Magnesium Sulfate 50 ml @ 12.5 mls/hr AD PRN IV MAG LEVEL LESS THAN 2.0 12/28/24 14:00 01/27/25 13:59 12/28/24 18:42 12.5 MLS/HR Magnesium Sulfate 50 ml @ 0 mls/hr PROTOCOL PRN IV MAGNESIUM PROTOCOL 12/26/24 15:00 12/28/24 14:10 DC Metolazone (zarOXOlyn) 5 mg ONCE PO 12/31/24 12:00 12/31/24 20:18 DC 12/31/24 12:01 5 MG Metolazone (zarOXOlyn) 5 mg ONCE PO 01/01/25 16:30 01/02/25 16:29 01/01/25 16:53 5 MG Metoprolol Tartrate (loprESSOR) 12.5 mg BID PO 12/30/24 09:00 01/29/25 08:59 01/02/25 08:27 12.5 MG Metoprolol Tartrate (loprESSOR) 25 mg BID PO 12/25/24 21:00 12/28/24 13:54 DC 12/28/24 09:28 25 MG Morphine Sulfate (morPHINE 2MG SYG) 0.5 mg Q2H PRN IV MODERATE PAIN (4-6) 12/28/24 14:00 12/29/24 13:59 DC Morphine Sulfate (morPHINE 2MG SYG) 1 mg Q2H PRN IV SEVERE PAIN (7-10) 12/28/24 14:00 12/29/24 13:59 DC 12/28/24 17:05 1 MG Morphine Sulfate (morPHINE 2MG SYG) 2 mg Q4H PRN IVP SEVERE PAIN (7-10) 12/24/24 03:00 12/28/24 13:54 DC 12/26/24 02:43 2 MG Nitroglycerin (Nitroglycerin 1gm Oint) 0.5 inch Q8H5 TD 12/24/24 01:30 12/28/24 13:54 DC 12/27/24 12:57 0.5 INCH Nitroglycerin/ Dextrose 0 ml @ 0 mls/hr AD IV 12/28/24 14:00 12/31/24 14:00 DC Nitroglycerin/ Dextrose 0 ml @ 0 mls/hr AD PRN IV TITRATE 01/01/25 06:30 01/31/25 06:29 01/02/25 12:33 9 MLS/HR Norepinephrine Bitartrate 250 ml @ 0 mls/hr AD PRN IV TITRATE 12/27/24 11:00 01/26/25 10:59 12/30/24 12:34 3.8 MLS/HR Norepinephrine Bitartrate 8 mg/ Dextrose 250 ml @ 0 mls/hr AD PRN IV POST-OP CARDIOVASCULAR ORDERS 12/28/24 14:00 12/28/24 14:14 DC Ondansetron HCl (zoFRAN 4MG INJ) 4 mg Q6H PRN IV NAUSEA/VOMITING 12/24/24 03:00 12/28/24 13:54 DC Ondansetron HCl (zoFRAN 4MG INJ) 4 mg Q6H PRN IV NAUSEA/VOMITING 12/28/24 14:00 01/27/25 13:59 12/30/24 11:01 4 MG Pantoprazole Sodium (PROTonix 40MG INJ) 40 mg Q12H IVP 01/02/25 05:00 02/01/25 04:59 01/02/25 04:59 40 MG Piperacillin Sod/ Tazobactam Sod (Zosyn 3.375gm+NS 50ml) 3.375 gm Q12H IV 12/30/24 15:30 01/09/25 15:29 01/02/25 04:13 3.375 GM Potassium Phosphate 250 ml @ 42 mls/hr AD PRN IV LOW PHOS LEVEL 12/28/24 14:00 01/27/25 13:59 12/29/24 06:12 42 MLS/HR Potassium Chloride 100 ml @ 100 mls/hr AD PRN IV POTASSIUM PROTOCOL 12/26/24 15:00 12/28/24 13:54 DC Potassium Chloride 100 ml @ 100 mls/hr AD PRN IV HYPOKALEMIA 12/28/24 14:00 01/27/25 13:59 12/29/24 01:21 100 MLS/HR Potassium Chloride (K-Dur/Klor-Con 20meq) 20 meq AD PRN PO POTASSIUM PROTOCOL 12/26/24 15:00 12/28/24 13:54 DC 12/26/24 18:27 20 MEQ Potassium Chloride (KCl 10% Elixir 20meq/15ml) 20 meq AD PRN PO POTASSIUM PROTOCOL 12/26/24 15:00 12/28/24 13:54 DC Propofol 100 ml @ 0 mls/hr AD PRN IV SEDATION 12/28/24 14:00 01/01/25 13:59 DC Sodium Polystyrene Sulfonate (kayEXALate 15 GM/60 ML) 30 gm ONCE STAT PO 12/30/24 11:36 12/30/24 11:39 DC 12/30/24 11:45 30 GM Sodium Bicarbonate (Sodium Bicarb 50meq 50ml Vial) 50 meq AD PRN IV OTHER[SEE DOSING INSTRUCTIONS] 12/28/24 14:00 12/31/24 14:00 DC 12/30/24 12:45 100 MEQ Sodium Chloride 500 ml @ 0 mls/hr AD IV 12/28/24 14:00 01/27/25 13:59 Sodium Chloride 1,000 ml @ 10 mls/hr ONCE IV 12/28/24 14:00 12/29/24 13:59 DC 12/28/24 17:06 10 MLS/HR Sodium Chloride (NS Flush 10ml) 10 ml Q8H PRN IVP IV LINE FLUSH 12/28/24 14:00 01/27/25 13:59 Tramadol HCl (UltRAM) 25 mg Q6H PRN PO MODERATE PAIN (4-6) 12/28/24 14:00 12/29/24 13:56 DC 12/29/24 11:05 25 MG Tramadol HCl (UltRAM) 50 mg Q6H PRN PO SEVERE PAIN (7-10) 12/28/24 14:00 12/29/24 13:56 DC Vasopressin 20 units/Sodium Chloride 100 ml @ 0 mls/hr PROTOCOL IV 12/30/24 15:30 01/29/25 15:29 12/31/24 10:40 6 MLS/HR DIAGNOSTICS / RADIOLOGY: [ ] PATIENT: ZHEN IVEY MR#: [id number] : 1970 SEX: M AGE: 54 LOCATION: [facility] ORDER 1116 STATUS: ADM IN REPORT#: [id number] SERVICE 1114 REASON: post op hypotension/reassess LVEF ORDERING PHYSICIAN: TERRANCE ALVAREZ PROCEDURE: ECHO CMP - ECHO 2-D COMPLETE APPROVED REPORT EXAM: Two-dimensional and M-mode echocardiogram with Doppler and color Doppler. Study Details: CP , HTN INDICATION ICD: post op hypotension / reassess 2D Dimensions RVDd 4.5 cm LVEF(%) 34.1 (>50%) LVED Vol(simp.) 97.7 mL IVSd 0.9 (0.7-1.1cm) FS(%) 16 % LVES Vol(simp.) 76.8 mL LVDd 4.2 (3.8-5.6cm) LA (2D) 2.7 (1.6-4.0cm) LVEF(%, simp.) 21 % PWd 0.8 (0.7-1.1cm) Ao Root(2D) 2.8 (2.0-3.7cm) LA ESV INDEX (BP) 21.01 mL/m2 IVSs 1.1 cm LVOT diam 1.9 (1.8-2.4cm) LVDs 3.5 (2.5-4.0cm) PWs 1.1 cm Deformation Strain Apical 4 4.3 % Apical 2 1.6 % Apical 3 2.4 % Global Strain 2.4 % M-Mode Dimensions EPSS 1.2 cm LA (MM) 3.6 (1.6-4.0cm) Ao Root(MM) 3.2 (2.0-3.7cm) Aortic Valve AoV Vmax 1.0 m/s Ao Peak GR 4.1 mmHg LVOT Vmax 0.6 m/s AoV VTI 0.2 m Ao Mean GR 2.5 mmHg LVOT VTI 0.10 m MARGARITA (VMAX) 1.62 cm2 MARGARITA (VTI) 1.7 cm2 Mitral Valve MV E Vmax 54.6 cm/s DECEL Time 169 ms MV A Vmax 54.6 cm/s P 1/2 T 49 ms E/A ratio 1.0 MVA (PHT) 4.5 cm2 TDI E/E' Medial 13.7 E/E' Lateral 18.7 Medial E' Peak V 3.99 cm/s Lateral E' Peak V 2.92 cm/s Pulmonary Valve PV Vmax 0.5 m/s PV VTI 0.08 m PV Mean GR 0.7 mmHg PV Peak GR 1.0 mmHg Tricuspid Valve TR Vmax 2.5 m/s RVSP 25.3 mmHg TR Peak GR 25.3 mmHg Left Ventricle The left ventricle is mildly dilated. Hyopkinetic anterior wall and apex. Global strain of -25. There is moderate concentric left ventricular hypertrophy.. LVEF is 25-30%. 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 Indeterminate diastolic dysfunction. Right Ventricle The right ventricle is mildly dilated. Right ventricular systolic function is moderately to severely reduced. Atria The left atrium size is normal. The right atrium size is normal. Aortic Valve The aortic valve is not well visualized. No aortic regurgitation is present. There is mild valvular aortic stenosis. Mitral Valve The mitral valve is mildly thickened. There is no mitral valve regurgitation noted. There is no mitral valve stenosis. Tricuspid Valve Tricuspid valve is not well visualized. trace tricuspid regurgitation. Pulmonic Valve The pulmonary valve is normal in structure and function. There is no pulmonic valvular regurgitation. Great Vessels The aortic root is normal in size. IVC is not well visualized. Pericardium not well visualized Conclusion The left ventricle is mildly dilated. LVEF is 25-30%. Hyopkinetic anterior wall and apex. Global strain of -25. 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 DICTATED BY: CHEYENNE LANE MD DATE: 01/01/25 1448 ELECTRONICALLY SIGNED BY: CHEYENNE LANE MD DATE: 01/02/25 0846 PATIENT: ZHEN IVEY MR#: [id number] : 1970 SEX: M AGE: 54 LOCATION: [facility] ORDER 2300 STATUS: ADM IN REPORT#: [id number] SERVICE 0400 REASON: s/p CABG ORDERING PHYSICIAN: KATHRIN PONCE MD PROCEDURE: CXR1VW - CHEST 1VW EXAM: XR Chest, 1 View. CLINICAL HISTORY: 54-year-old male with Coronary artery bypass graft. COMPARISON: 01/01/2025. FINDINGS: LUNGS: Note is made of small bilateral pleural effusions. PLEURAL SPACES: See above. HEART: Mild cardiomegaly is present. BONES: No acute osseous abnormality. LINES AND TUBES: The nasogastric tube is projected over the central chest. Right internal jugular central line is in place. Endotracheal tube was present in the previous study dated 01/01/2025, but is not visualized on the current study. IMPRESSION: 1. Mild cardiomegaly and small bilateral pleural effusions, similar to the prior study. 2. Right internal jugular central line in place with associated tenderness. 3. Nasogastric tube in place. /[place] DICTATED BY: DHRUV NG MD DATE: 01/02/251347 ELECTRONICALLY SIGNED BY: DHRUV NG MD DATE: 01/02/251347 ASSESSMENT: 1. Non-STEMI. 2. Multi-vessel coronary artery disease status post CABG 12/28/2024 3. s/p LLE femoral thrombectomy 4. HFrEF LV ejection fraction 25-30% by echo on 01/01/2025 5. Mild ischemic cardiomyopathy with LVEF 45-50 by left heart catheterization. 6. Hypertension. 7. Anemia. PLAN: ACS NSTEMI due to Multi vessel CAD, s/p CABG Day 5 * Continue aspirin, atorvastatin * Continue argatroban and wean nitroglycerin GTT as per cardiology recommendation * Plan to start Clopidogrel on discharge, as per Cardiology consult * Monitor chest tube output * Strict I/O and daily weights HFrEF LV ejection fraction 25-30% by echo on 01/01/2025 * Patient LVEF is 25-30% by echocardiography, down from 50-55% on 12/27/24 * Continue Lasix per protocol * Continue metolazone 5 mg daily * Resume GDMT for heart failure when weaned from pressors and more stable * Strict I&O and daily weights S/P LLE femoral thrombectomy * Patient underwent left lower extremity femoral thrombectomy on 01/01, after finding monophasic waveforms be on popliteal artery by arterial Doppler * Continue atorvastatin and aspirin * Resume clopidogrel as DAPT prior to discharge * Monitor leg perfusion, pulses and swelling Anemia, post CABG * Patient received 4 units of packed RBCs * Patient hemoglobin is 9.7 today * Iron panel showed Iron 20, % Sat 5.5, TIBC 360 indicating Iron deficiency * Monitor CBC daily in the a.m. daily * Monitor for signs of bleeding Acute on chronic renal dysfunction * Patient BUN is 51 and creatinine 6.4, (16 and 0.9 POA) * Nephrology consult recommended continuation of Lasix and no acute need for renal replacement therapy * Patient urine output has improved, currently 2.2L * Monitor CBC and electrolytes in the a.m. daily GI prophylaxis with Protonix 40 mg IV Continue DVT prophylaxis ATTESTATION BY PHYSICIAN I have seen and examined the patient. I reviewed the documentation, medical decision making, and treatment plan as noted by the resident provider above. I agree with the findings and plan of care. Bhadriraju, JODY Bernal MD, MD Jan 02, 2025 13:50 THEODORA RICHARDS MD Jan 02, 2025 17:07
--- NOTE | 2025-01-02 14:24 | NUR ---
[facility] Follow-up: Patient re-assessed by wound healing team. See wound assessment. Assessment and recommendations provided to primary nurse. Education provided. Addendum: 01/02/25 at 1538 by ANNIE FINN RN RN/ Amended: Links added.
--- NOTE | 2025-01-02 14:55 | NUR ---
Nutrition consult per LOS >7 Reviewed labs, notes, and medications. 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 75%PO prior to NPO status, wt via bed scale, inconsistent wts, NGT in place, last BM 01/01/25, incision wound, no edema, well nourished, 1143 ml balance 01/01/25 per nursing.Per research low vitamin D may contribute to insulin resistance. Pt with no nutrition for 5 days. Recommendations: -Provide HH diet when medically feasible -Monitor PO advancement -Monitor BM -If no BM >3 days consider stool softener -Monitor electrolytes -Replenish electrolytes per protocol -Monitor wts -Reweigh as able -Order Vit D, vit b-12 labs to rule out deficiencies -Provide b -complex QD -Texture per TERMINAL SUPERVISOR recs -Recommend Pt to follow up with PCP -Monitor goals of care RD to follow + available for consult per protocol Addendum: 01/02/25 at [address] Amended: Links added.
--- NOTE | 2025-01-02 15:57 | CONS ---
GASTROENTEROLOGY CONSULTATION NOTE Date of Consultation: Jan 02, 2025 Time of Consultation: 15:54 History of Present Illness: [ ] Review of Systems: CONSTITUTIONAL: No malaise or change in sensation of wellbeing. ENMT: No rhinorrhea, otorrhea, sinus pain, ear ache. CARDIOVASCULAR: No angina, palpitations, orthopnea or paroxysmal dyspnea. RESPIRATORY: No SOB. GASTROINTESTINAL: No abdominal pain, nausea, vomiting, diarrhea, hematemesis, melena or change in the patient's habitual bowel movements consistency/number. GENITOURINARY: No dysuria, hematuria or change in bladder continence. MUSCULOSKELETAL: No new muscle pain or decrease in muscular strength. No new joint swelling, redness or tenderness. SKIN: No new rash. Past Medical History: [ ] Past Surgical History: [ ] Past Social History: [ ] Family History: [ ] Coded Allergies: No Known Drug Intolerances (Unverified Allergy, Unknown, 12/24/24) Physical Exam: GEN: Awake, alert, oriented in person, time and place, and in no acute distress. HEENT: No sinus tenderness. Tympanic membranes were not examined. No rhinorrhea. Oral pharyngeal mucosa is pink, moist and within normal limits. Neck is supple with no cervical lymphadenopathy, thyromegaly or JVD. CHEST: Inspection, palpation and percussion of the chest were unremarkable. Lung auscultation revealed normal breath sounds bilaterally. CARDIAC: PMI is within normal limits. Heart sounds are regular. Normal S1, S2. No gallop or murmur. ABD: Soft, non-tender and not distended. No peritoneal signs on palpation. No organomegaly. Normal bowel sounds. EXT: No cyanosis or clubbing. No edema. SKIN: Intact. No rashes. JOINTS: No evidence of synovitis or acute arthritis. NEURO: Alert and oriented to name, place and person. Cranial nerve examination is unremarkable. No focal motor deficits. Normal speech. Gait is normal. Strength is normal. Vital Sign (Last 24 Hours) 01/02/25 01/02/25 01/02/25 08:00 12:00 14:45 Temp 98.4 Pulse 81 Resp 21 B/P (MAP) 156/81 (106) Pulse Ox 100 O2 Delivery Nasal Cannula* O2 Flow Rate 3 FiO2 32 Intake & Output (last 24hrs) 0 01/01/25 01/01/25 01/02/25 15:00 23:00 07:00 Intake Total 861.2 ml 643.7 ml 364.2 ml Output Total 1661 ml 959 ml Balance 861.2 ml -1017.3 ml -594.8 ml Laboratory: [ ] Laboratory: Test 01/02/25 12:29 01/02/25 04:02 01/02/25 00:27 01/01/25 11:36 Range/Units Whole Blood Glucose 87 70-110 MG/DL White Blood Count 6.8 4.8-10.8 K/uL Red Blood Count 3.81 L 4.50-6.20 MIL/uL Hemoglobin 9.7 L 14.0-18.0 g/dL Hematocrit 30.1 L 42-54 % Mean Corpuscular Volume 79.0 79-99 fL Mean Corpuscular Hemoglobin 25.5 L 27.0-33.0 pg Mean Corpuscular Hemoglobin Concent 32.2 32.0-36.0 g/dL Red Cell Distribution Width 22.0 H 11.0-15.5 % Platelet Count 157 130-400 K/uL Mean Platelet Volume 10.6 H 7.5-10.5 fL Nucleated Red Blood Cells 3.6 H 0.0-0.19 % Activated Partial Thromboplast Time 58.7 H 26.3-35.5 SEC Sodium Level 147 H 136-145 mmol/L Potassium Level 3.8 3.5-5.1 mmol/L Chloride Level 107 101-111 mmol/L Carbon Dioxide Level 28 21-32 mmol/L Blood Urea Nitrogen 51 H 7-18 mg/dL Creatinine 6.4 H 0.5-1.3 mg/dL Glomerular Filtration Rate Calc 10 >90 mL/min Random Glucose 106 H 70-105 mg/dL Total Calcium 8.7 8.5-10.1 mg/dL Total Creatine Kinase 494 #*H 21-232 U/L Stool Occult Blood POSITIVE H NEGATIVE Blood Gas Specimen Type Arterial Arterial Blood pH 7.512 H 7.350-7.450 Arterial Blood Partial Pressure CO2 31 L 35-48 mmHg Arterial Blood Partial Pressure O2 99.9 83.0-108.0 mmHg Arterial Blood HCO3 24.2 21.0-28.0 mmol/L Arterial Blood Oxygen Saturation 97.1 94.0-98.0 % Arterial Blood Base Excess 1.7 -2.0-3.0 mmol/L Hemoglobin (Blood Gas) 10.4 L 13.5-17.5 g/dL Sodium (Blood Gas) 142 136-145 MMOL/L Bedside Potassium (Blood Gas) 4.0 3.4-4.5 MMOL/L Bedside Chloride (Blood Gas) 106 98-107 MMOL/L Bedside Glucose (Blood Gas) 132 H 65-95 MG/DL Bedside Ionized Calcium (Blood Gas) 1.19 1.15-1.33 MMOL/L Bedside Lactic Acid (Blood Gas) 2.00 H 0.36-0.75 MMOL/L Blood Gas Temperature 37.0 35.5-37.0 CELSIUS Blood Gas Flow-by 10.00 0.00-15.00 L/min Blood Gas Vent Mode CAFM ROOM AIR FiO2 40.0 % Blood Gas Specimen Comment A-LINE ARELY Test 01/01/25 08:50 Range/Units Blood Gas Respiration Rate 4.0 min. Blood Gas Tidal Volume 600 ml Blood Gas PEEP 5 cm H2O Current Medications Medications (Trade) Dose Ordered Sig/Mila Route PRN Reason Start Time Stop Time Status Last Admin Dose Admin Acetaminophen (TYLenol 325MG TAB) 650 mg Q4H PRN PO Temp >38.3C(AFTER EXTUBATION) 12/28/24 14:00 01/27/25 13:59 Acetaminophen (TYLenol 325MG TAB) 650 mg Q6H PRN PO MILD PAIN (1-3) 12/24/24 01:30 12/28/24 13:57 DC 12/27/24 23:45 650 MG Acetaminophen (TYLenol 325MG TAB) 650 mg Q6H PRN PO TEMPERATURE GREATER THAN 101.5 12/24/24 03:00 12/28/24 14:10 DC Acetaminophen (TYLenol 325MG TAB) 650 mg Q6H PRN PO MILD PAIN (1-3) 12/28/24 14:00 01/27/25 13:59 12/30/24 07:51 650 MG Acetaminophen (TYLenol 650MG SUPPOSITORY) 650 mg Q4H PRN RC Temp >38.3C WHILE INTUBATED 12/28/24 14:00 01/27/25 13:59 Acetaminophen (acetaMINOPHEN) 1,000 mg Q6H6 IV 12/28/24 18:00 12/29/24 17:59 DC 12/29/24 17:27 1,000 MG Acetaminophen (acetaMINOPHEN) 1,000 mg Q6H6 IVPB 12/30/24 00:00 12/31/24 20:14 DC 12/30/24 18:16 1,000 MG Albumin Human 250 ml @ 0 mls/hr AD PRN IV IF HEMODYNAMICALLY UNSTABLE 12/28/24 14:00 12/29/24 09:28 DC 12/29/24 09:28 250 MLS/HR Albuterol (DUOneb) 1 UDVIAL N2WLIIS IH 01/01/25 18:00 01/01/25 15:25 DC Albuterol Sulfate (Proventil 0.083% 2.5mg/3ml) 2.5 mg ONCE STAT IH 12/30/24 10:22 12/30/24 10:32 DC 12/30/24 10:43 2.5 MG Aminocaproic Acid 52043 mg/Sodium Chloride 310 ml @ 25 mls/hr AD IV 12/28/24 14:00 12/28/24 14:14 DC Aminocaproic Acid 61576 mg/Sodium Chloride 480 ml @ 0 mls/hr AD PRN IV BLEEDING CONTROL 12/27/24 11:00 01/26/25 10:59 Argatroban 250 mg/ Sodium Chloride 250 ml @ 0 mls/hr PROTOCOL IV 12/31/24 16:30 01/30/25 16:29 12/31/24 22:32 2.61 MLS/HR Aspirin (Aspirin 81mg Ec Tab) 81 mg DAILY PO 12/24/24 09:00 01/23/25 08:59 01/02/25 13:52 81 MG Atorvastatin Calcium (LIPItor 40MG) 40 mg HS PO 12/24/24 21:00 01/01/25 11:16 DC 12/31/24 20:44 40 MG Bisacodyl (DulcoLAX) 10 mg DAILY PRN RC CONSTIPATION - MOM INEFFECTIVE 12/29/24 14:00 01/28/25 13:59 12/30/24 11:05 10 MG Calcium Gluconate 1 gm/Sodium Chloride 60 ml @ 200 mls/hr AD PRN IV HYPOCALCEMIA 12/28/24 14:00 01/27/25 13:59 01/01/25 01:52 200 MLS/HR Cefazolin Sodium (ANCEF 1 gm vial) 2 gm ONCALL IVP 12/26/24 16:30 12/26/24 16:28 DC Cefazolin Sodium (Ancef) 2 gm ONCALL PRN IVP SURGERY 12/26/24 16:30 12/28/24 13:57 DC Cefazolin Sodium (Ancef) 2 gm Q8H IVPB 12/28/24 19:00 12/29/24 11:01 DC 12/29/24 11:04 2 GM Dexmedetomidine/ Sodium Chloride (PRECEdex 400MCG/ 100ML-NS) 400 mcg PROTOCOL IV 12/28/24 14:00 12/29/24 13:59 DC 12/29/24 12:16 400 MCG Dexmedetomidine/ Sodium Chloride (PRECEdex 400MCG/ 100ML-NS) 400 mcg PROTOCOL IV 12/29/24 18:00 01/28/25 17:59 12/31/24 06:05 400 MCG Dextrose (D50w) 50 ml AD PRN IV HYPOGLYCEMIA PROTOCOL 12/28/24 14:00 01/27/25 13:59 Dextrose (D50w) 50 ml ONCE STAT IV 12/30/24 11:36 12/30/24 11:39 DC 12/30/24 11:45 50 ML Dextrose/Sodium Chloride 1,000 ml @ 50 mls/hr Q20H IV 12/30/24 11:30 01/01/25 16:17 DC 01/01/25 02:09 50 MLS/HR Dobutamine HCl/ Dextrose 250 ml @ 0 mls/hr PROTOCOL IV 12/29/24 14:00 01/28/25 13:59 01/02/25 08:30 8.3 MLS/HR Docusate Sodium (COLace 100MG CAP) 100 mg BID PO 12/28/24 21:00 12/29/24 08:01 DC 12/28/24 20:53 100 MG Docusate Sodium (COLace LIQUID 100MG/10ML) 100 mg BID PO 12/29/24 08:00 01/28/25 07:59 01/01/25 20:14 100 MG Enoxaparin Sodium (Lovenox) 30 mg DAILY SQ 12/31/24 09:00 12/31/24 16:12 DC Epinephrine HCl 10 mg/Sodium Chloride 250 ml @ 0 mls/hr AD PRN IV TITRATE 12/27/24 11:00 01/26/25 10:59 12/30/24 04:29 0 MLS/HR Epinephrine HCl 10 mg/Sodium Chloride 250 ml @ 0 mls/hr AD PRN IV POST-OP CARDIOVASCULAR ORDERS 12/28/24 14:00 12/28/24 14:14 DC Famotidine (Pepcid 20mg Vial) 20 mg BID IV 12/28/24 21:00 12/31/24 20:20 DC 12/31/24 08:51 20 MG Famotidine (Pepcid 20mg Vial) 20 mg Q48H IV 01/02/25 09:00 01/02/25 04:51 DC Famotidine (Pepcid 20mg Tab) 20 mg DAILY PO 12/24/24 09:00 12/28/24 13:54 DC 12/26/24 10:19 20 MG Furosemide (LASix 20MG TAB) 20 mg Q12H PO 12/30/24 09:00 12/30/24 08:34 DC Furosemide (LASix 20MG VIAL) 20 mg Q12H IV 12/29/24 09:00 12/30/24 08:34 DC 12/29/24 09:20 20 MG Furosemide 100 mg/ Sodium Chloride 100 ml @ 0 mls/hr PROTOCOL IV 12/29/24 14:30 01/28/25 14:29 01/02/25 08:48 10 MLS/HR Glucagon (Glucagon 1mg Kit) 1 mg AD PRN IM HYPOGLYCEMIA PROTOCOL 12/28/24 14:00 01/27/25 13:59 Heparin Sodium (Porcine) (HEParin 5,000 UNIT VIAL) *calculation based on ACTUAL B... AD PRN IV HEPARIN PROTOCOL 12/24/24 02:30 12/28/24 13:54 DC 12/24/24 17:32 5,000 UNIT Heparin Sodium/ Dextrose 250 ml @ 0 mls/hr Q6H IV 12/24/24 02:30 12/28/24 13:54 DC 12/27/24 17:04 11.3 MLS/HR Hydralazine HCl (APRESOLine 20MG INJ) 10 mg Q6H PRN IV For:SBP above 160;DBP above 90 12/24/24 03:00 12/28/24 13:54 DC Insulin Human Regular (humuLIN R 100 UNIT/ML 3ML) 10 unit ONCE STAT IV 12/30/24 11:42 8/22/25 11:45 DC 12/30/24 12:01 10 UNIT Insulin Human Regular (humuLIN R 100 UNIT/ML 3ML) 10 unit ONCE STAT SQ 12/30/24 11:36 12/30/24 11:43 DC Insulin Human Regular 100 unit/ Sodium Chloride 100 ml @ 0 mls/hr AD IV 12/28/24 14:00 12/29/24 17:55 DC 12/28/24 17:09 5 MLS/HR Ipratropium [place] (AtrovENT UD) 0.5 mg [id number] IH 12/30/24 12:00 01/29/25 11:59 01/02/25 11:02 0.5 MG Lactulose (Constulose 20gm/ 30ml Udcup) 20 gm BID PRN PO CONSTIPATION 12/24/24 03:00 12/28/24 13:54 DC 12/26/24 21:30 20 GM Lactulose (Constulose 20gm/ 30ml Udcup) 20 gm BID PRN PO CONSTIPATION 12/28/24 14:00 01/27/25 13:59 12/30/24 07:50 20 GM Lidocaine HCl/ Dextrose 250 ml @ 0 mls/hr AD PRN IV TITRATE 12/28/24 22:30 12/29/24 16:00 DC 12/29/24 06:53 15 MLS/HR Magnesium Hydroxide (Milk Of Magnesium 30ml) 30 ml DAILY PRN PO CONSTIPATION 12/28/24 14:00 01/27/25 13:59 12/30/24 10:18 30 ML Magnesium Sulfate 50 ml @ 12.5 mls/hr AD PRN IV MAG LEVEL LESS THAN 2.0 12/28/24 14:00 01/27/25 13:59 12/28/24 18:42 12.5 MLS/HR Magnesium Sulfate 50 ml @ 0 mls/hr PROTOCOL PRN IV MAGNESIUM PROTOCOL 12/26/24 15:00 12/28/24 14:10 DC Metolazone (zarOXOlyn) 5 mg ONCE PO 12/31/24 12:00 12/31/24 20:18 DC 12/31/24 12:01 5 MG Metolazone (zarOXOlyn) 5 mg ONCE PO 01/01/25 16:30 01/02/25 16:29 01/01/25 16:53 5 MG Metoprolol Tartrate (loprESSOR) 12.5 mg BID PO 12/30/24 09:00 01/29/25 08:59 01/02/25 08:27 12.5 MG Metoprolol Tartrate (loprESSOR) 25 mg BID PO 12/25/24 21:00 12/28/24 13:54 DC 12/28/24 09:28 25 MG Morphine Sulfate (morPHINE 2MG SYG) 0.5 mg Q2H PRN IV MODERATE PAIN (4-6) 12/28/24 14:00 12/29/24 13:59 DC Morphine Sulfate (morPHINE 2MG SYG) 1 mg Q2H PRN IV SEVERE PAIN (7-10) 12/28/24 14:00 12/29/24 13:59 DC 12/28/24 17:05 1 MG Morphine Sulfate (morPHINE 2MG SYG) 2 mg Q4H PRN IVP SEVERE PAIN (7-10) 12/24/24 03:00 12/28/24 13:54 DC 12/26/24 02:43 2 MG Nitroglycerin (Nitroglycerin 1gm Oint) 0.5 inch Q8H5 TD 12/24/24 01:30 12/28/24 13:54 DC 12/27/24 12:57 0.5 INCH Nitroglycerin/ Dextrose 0 ml @ 0 mls/hr AD IV 12/28/24 14:00 12/31/24 14:00 DC Nitroglycerin/ Dextrose 0 ml @ 0 mls/hr AD PRN IV TITRATE 01/01/25 06:30 01/31/25 06:29 01/02/25 12:33 9 MLS/HR Norepinephrine Bitartrate 250 ml @ 0 mls/hr AD PRN IV TITRATE 12/27/24 11:00 01/26/25 10:59 12/30/24 12:34 3.8 MLS/HR Norepinephrine Bitartrate 8 mg/ Dextrose 250 ml @ 0 mls/hr AD PRN IV POST-OP CARDIOVASCULAR ORDERS 12/28/24 14:00 12/28/24 14:14 DC Ondansetron HCl (zoFRAN 4MG INJ) 4 mg Q6H PRN IV NAUSEA/VOMITING 12/24/24 03:00 12/28/24 13:54 DC Ondansetron HCl (zoFRAN 4MG INJ) 4 mg Q6H PRN IV NAUSEA/VOMITING 12/28/24 14:00 01/27/25 13:59 12/30/24 11:01 4 MG Pantoprazole Sodium (PROTonix 40MG INJ) 40 mg Q12H IVP 01/02/25 05:00 02/01/25 04:59 01/02/25 04:59 40 MG Piperacillin Sod/ Tazobactam Sod (Zosyn 3.375gm+NS 50ml) 3.375 gm Q12H IV 12/30/24 15:30 01/09/25 15:29 01/02/25 15:12 3.375 GM Potassium Phosphate 250 ml @ 42 mls/hr AD PRN IV LOW PHOS LEVEL 12/28/24 14:00 01/27/25 13:59 12/29/24 06:12 42 MLS/HR Potassium Chloride 100 ml @ 100 mls/hr AD PRN IV POTASSIUM PROTOCOL 12/26/24 15:00 12/28/24 13:54 DC Potassium Chloride 100 ml @ 100 mls/hr AD PRN IV HYPOKALEMIA 12/28/24 14:00 01/27/25 13:59 12/29/24 01:21 100 MLS/HR Potassium Chloride (K-Dur/Klor-Con 20meq) 20 meq AD PRN PO POTASSIUM PROTOCOL 12/26/24 15:00 12/28/24 13:54 DC 12/26/24 18:27 20 MEQ Potassium Chloride (KCl 10% Elixir 20meq/15ml) 20 meq AD PRN PO POTASSIUM PROTOCOL 12/26/24 15:00 12/28/24 13:54 DC Propofol 100 ml @ 0 mls/hr AD PRN IV SEDATION 12/28/24 14:00 01/01/25 13:59 DC Sodium Polystyrene Sulfonate (kayEXALate 15 GM/60 ML) 30 gm ONCE STAT PO 12/30/24 11:36 12/30/24 11:39 DC 12/30/24 11:45 30 GM Sodium Bicarbonate (Sodium Bicarb 50meq 50ml Vial) 50 meq AD PRN IV OTHER[SEE DOSING INSTRUCTIONS] 12/28/24 14:00 12/31/24 14:00 DC 12/30/24 12:45 100 MEQ Sodium Chloride 500 ml @ 0 mls/hr AD IV 12/28/24 14:00 01/27/25 13:59 Sodium Chloride 1,000 ml @ 10 mls/hr ONCE IV 12/28/24 14:00 12/29/24 13:59 DC 12/28/24 17:06 10 MLS/HR Sodium Chloride (NS Flush 10ml) 10 ml Q8H PRN IVP IV LINE FLUSH 12/28/24 14:00 01/27/25 13:59 Tramadol HCl (UltRAM) 25 mg Q6H PRN PO MODERATE PAIN (4-6) 12/28/24 14:00 12/29/24 13:56 DC 12/29/24 11:05 25 MG Tramadol HCl (UltRAM) 50 mg Q6H PRN PO SEVERE PAIN (7-10) 12/28/24 14:00 12/29/24 13:56 DC Vasopressin 20 units/Sodium Chloride 100 ml @ 0 mls/hr PROTOCOL IV 12/30/24 15:30 01/29/25 15:29 12/31/24 10:40 6 MLS/HR Diagnostics / Radiology: [COPY/PASTE HERE IF NO REPORTS PLEASE DELETE SECTION] Assessment: [melena concern for GI bleed ] Plan: [No GI endoscopic intervention at this time given guarded status Trend HGB and transfuse as needed to goal HGB >7 Continue Gi prophylaxis with protonix 40mg IV bid Please call with questions, concerns, and change in clinical status and any s/s of overt GI bleed Will continue to follow Will defer to medical management Thank you for this consult. ] ADALGISA ADAIR NP Jan 02, 2025 15:57
--- NOTE | 2025-01-02 17:15 | NUR ---
BEDSIDE SWALLOW EVAL COMPLETED. +s/s of aspiration post extubation. Recommend pureed solids, moderately thick liquids and pills crushed with pureed solids. Compensatory strategies: 1. sit upright during oral intake 2. small bites/sips 3. slow oral intake 4. extra dry swallows 5. NO STRAWS INCIDENT MANAGER reviewed results and recommendations with patient and nurse Patti. INCIDENT MANAGER educated patient on risks and consequences of aspiration. Speech therapy warranted at this time to address oropharyngeal dysphagia. All questions answered. RECOMMENDATIONS: Dysphagia Therapy 1-3X week to increase oral motor strength and pharyngeal swallow: LTG#1: Pt will tolerate least restrictive diet to meet nutrition/hydration with no s/s of aspiration. LTG#2: Skilled education Pt/family/staff STG#1: Pt will participate in laryngeal elevation/excursion exercises with 90% accuracy and min A. STG#2: Pt will participate in tongue base retraction exercises with 90% acc/with Min A. STG#3: Pt will participate in oral motor exercises with 90% acc/with Min A. STG#4: Pt will tolerate modified diet of pureed solids and moderately thick liquids with no overt s/s of aspiration. STG#5: Pt will participate in advanced trials of minced and moist solids and nectar thick liquids with no overt s/s of aspiration. STG#6: Skilled education Pt/family/staff. Addendum: 01/03/[address] NOHELIA LERMA Amended: Links added.
[2025-01-02 17:44] LABS: CREATININE 6.9 mg/dL (0.5-1.3); GLOMERULAR FILTR. RATE CALC 9.0 mL/min (>90); GLUCOSE,RANDOM 101.0 mg/dL (70-105); PHOSPHORUS 8.0 mg/dL (2.5-4.9); SODIUM SERUM 143.0 mmol/L (136-145); UREA NITROGEN, BLOOD 64.0 mg/dL (7-18)
[2025-01-03] VITALS (103 sets, daily range): BP systolic 118–188; BP diastolic 51–98; PULSE 76–96; RESP 13–38; TEMP 97.8–98.7; O2SAT 97–99
[2025-01-03 03:58] LABS: IMMATURE GRANULOCYTE ABSOLUTE 0.07 K/uL (0-1); NUCLEATED RED BLOOD CELLS 7.1 % (0.0-0.19); PLATELET COUNT (AUTO) 163 K/uL (130-400); RED BLOOD CELL COUNT(AUTO) 3.80 MIL/uL (4.50-6.20); RED CELL DISTRIBUTION WIDTH 22.5 % (11.0-15.5); WHITE BLOOD COUNT (AUTO) 6.4 K/uL (4.8-10.8)
[2025-01-03 04:24] LABS: ASPARTATE AMINOTRANSFERASE 111.0 U/L (10-37); CREATININE 7.4 mg/dL (0.5-1.3); GLOMERULAR FILTR. RATE CALC 8.0 mL/min (>90); GLUCOSE,RANDOM 113.0 mg/dL (70-105); SODIUM SERUM 143.0 mmol/L (136-145); TOTAL PROTEIN, SERUM 5.1 g/dL (6.0-8.3); UREA NITROGEN, BLOOD 73.0 mg/dL (7-18)
[2025-01-03 04:50] LABS: LYMPHOCYTES % (MANUAL) 7 % (22-44); MAN.DIFF COMMENT-IMPRESSION MANUAL DIFFERENTIAL; MONOCYTES % (MANUAL) 2 % (2-9); OTHER CELLS,MANUAL % 4 (0-0); SEGMENTED NEUTROPHILS % 87 % (40-70)
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
--- NOTE | 2025-01-03 08:57 | PN ---
SUBJECTIVE: A 54-year-old male with history of diabetes mellitus and hypertension. The patient with a history of coronary artery disease, status post CABG. The patient has had acute renal failure postoperatively. The patient's urine output has greatly improved with Lasix. The patient has been successfully extubated. He is off all the pressures and he is being seen as a followup visit for all of the above. REVIEW OF SYSTEMS: CONSTITUTIONAL: The patient is feeling improved. HEENT: No change in vision. No change in hearing. CARDIOVASCULAR: There are no current chest pain or palpitations. PULMONARY: He denies shortness of breath. GASTROINTESTINAL: He has been started on a diet. MUSCULOSKELETAL: Complains of weakness. PHYSICAL EXAMINATION: VITAL SIGNS: Blood pressure 170/90, pulse 80s, afebrile. GENERAL: Chronically ill male, older than appearing. HEENT: Head is atraumatic. Pupils are equal, roving to light. Oropharynx is without exudate. Nares clear. NECK: There is no JVP. There is no thyromegaly. No masses. CARDIOVASCULAR: Regular. There is no S3 or S4 gallop. LUNGS: Coarse with equal thoracic movement. ABDOMEN: Soft, nondistended and nontender. EXTREMITIES: Reveal no clubbing, no cyanosis. NEUROLOGICAL: He is awake. He is alert. He is oriented. SKIN: Reveals no rash or nodules. BACK: There is no CVA tenderness. No back deformities. LABORATORY DATA: BUN 73, creatinine 7. Hemoglobin 9.9, hematocrit 30. IMPRESSION: * Acute renal failure. * Coronary artery disease, status post CABG. * Diabetes mellitus. * Hypertension PLAN: The patient's creatinine is noted. Urine output has been adequate with the diuretics. Pulmonary symptoms are greatly improved. The patient has been weaned off all the pressures. Potassium has been aggressively repleted and we will continue to follow closely. There is no acute need for any form of renal replacement therapy. Workup is ongoing for cardiovascular surgery. TID: [id number] RECEIPT: [id number]
[2025-01-03] MEDS: BENZOCAINE/MENTH/CETYLPYRD CL 1 EACH LOZENGE MM PRN (13:27)
--- NOTE | 2025-01-03 13:52 | PN ---
[facility]AL[facility] PROGRESS NOTE Date of Service: Jan 03, 2025 Time of Service: 13:52 SUBJECTIVE: This is a 54-year-old male who presented to [facility] with a non-STEMI. He underwent left heart catheterization which showed severe multi-vessel coronary artery disease with mid to apical inferior hypokinesis, LVEF 45-50%. He underwent echocardiogram 12/19/2024 which showed an ejection fraction of 55- 60%, mild LVH, normal-sized left atrium, mild mitral valve regurgitation and mild tricuspid valve regurgitation. [place] [facility] [place] 12/25 patient remains admitted to the PCU, case discussed with the RN, no acute events overnight, he denied chest pain, shortness shortness for breath, no nausea, no vomiting, no abdominal discomfort. Cardiology input noted and appreciated, patient to continue aspirin 81 mg p.o. daily and atorvastatin 40 mg p.o. daily. Continue metoprolol tartrate 25 mg p.o. b.i.d.. Pending evaluation by CT surgery for consideration for CABG. Discussed with the patient. 12/26 patient remains admitted to the PCU, case discussed with the RN, no acute events overnight, the time of my visit the patient is comfortably in bed, alert oriented x3, eating breakfast, tolerating well, denies nausea, no vomiting, no abdominal discomfort, he denies chest pain, no shortness a breath. Remains on aspirin 81 mg p.o. daily, atorvastatin and metoprolol 25 mg p.o. b.i.d.. Pending evaluation by CT surgery for consideration of CABG. 12/27 patient is seen and examined at bedside, case discussed with the RN, no acute events overnight, currently the patient NPO, scheduled for CABG today by Cardiothoracic surgeon. We will continue to follow. 12/28 patient is seen and examined at bedside, case discussed with the RN, no acute events overnight, currently the patient NPO, scheduled for CABG today by Cardiothoracic surgeon. We will continue to follow. 12/29 patient is seen and examined at bedside, remains admitted to the ICU, postoperative day 1., status post CABG 12/28/2024, patient on insulin drip, nitroglycerin drip, alert oriented x3 following commands, however was mildly agitated earlier this morning, motion with the RN started on Precedex. Patient with chest tube in place. Further recommendations per Cardiothoracic surgeon. 12/30 patient remains admitted to the ICU, case discussed with the RN, patient remains confused, trying to pull his IV lines, remains on Precedex. Throughout the balloon pump in place, just to be breath, remains on epinephrine, Levophed, Lasix drip, dobutamine drip. Creatinine today at 3.0. Nephrology consultation requested, we will follow input and recommendation. Continue to monitor liver enzymes in a.m., follow ammonia level (at the time of my dictation less than 10). Continue to follow critical care input and recommendation. Prognosis remains guarded. 12/31 54-year-old male who was transferred from [facility] with a non- STEMI. He underwent left heart catheterization which showed severe multi-vessel coronary artery disease with mid to apical inferior hypokinesis, LVEF 45-50%. He underwent echocardiogram 12/19/2024 which showed an ejection fraction of 55- 60%, mild LVH, normal-sized left atrium, mild mitral valve regurgitation and mild tricuspid valve regurgitation. He was [place] [facility] [place] Cardiothoracic surgeon consultation requested, patient underwent CABG 12/28/2024. Continue to follow Cardiothoracic input and recommendations. Patient has been mildly confused post procedure, started on Precedex. 01/01 54-year-old male who was transferred from [facility] with a non- STEMI. He underwent left heart catheterization which showed severe multi-vessel coronary artery disease with mid to apical inferior hypokinesis, LVEF 45-50%. He underwent echocardiogram 12/19/2024 which showed an ejection fraction of 55- 60%, mild LVH, normal-sized left atrium, mild mitral valve regurgitation and mild tricuspid valve regurgitation. He was [place] [facility] [place] Cardiothoracic surgeon consultation requested, patient underwent CABG 12/28/2024. At the time of my visit resting comfortably in bed, off Precedex, following commands, status post interval removal of intra-aortic balloon pump yesterday, remains on dobutamine and nitroglycerin drip as well as argatroban. Continue to follow critical Care and Cardiothoracic input and recommendations. 01/02/25: Patient was evaluated at the bedside. Today is postop Day 5 and he is recovering well. Patient underwent thrombectomy in the femoral artery of left lower extremity and removal of intra-aortic balloon pump yesterday. Patient has mottled appearance in the left great toe and dorsalis pedis pulsations are present. His chest tube output was 320 mL over the last 24 hours. His stool was positive for occult blood and a GI consult has been placed. Cardiology advised to continue the current treatment. Patient is weaned off Levophed and is currently on Lasix, dobutamine, nitroglycerin, and argatroban drips. A swallow test will be performed today to evaluate the need for removing NG tube. 01/03/25: Patient was evaluated at the bedside, this is postop day 6 and is recovering well. Patient has mottled appearance in the left great toe extending into all the digits. Dorsalis pedis pulsations were diminished with palpation but detected on Doppler. His chest tube output was 310 mL today. A GI consult was placed for occult blood however no intervention was recommended and advised to continue Protonix 40 mg. Nephrology recommended no renal replacement as maame carey has good urine output,3 L today and is responding well to diuresis. Patient is continued on Lasix, dobutamine, nitroglycerin, and argatroban drips. NG tube was removed and patient was started on pureed heart healthy diet as tolerated. REVIEW OF SYSTEMS CONSTITUTIONAL: Denies fevers, chills, or night sweats. No unintentional weight loss reported. NEUROLOGICAL: Denies headache, amaurosis fugax, motor weakness, sensory deficit, vertigo/spinning sensation, gait abnormalities, or tremors. CARDIOVASCULAR: Denies any exertional angina, dyspnea on exertion, orthopnea, paroxysmal nocturnal dyspnea, palpitations, life-threatening arrhythmias, claudication. PULMONARY: Denies any shortness of breath, hemoptysis, pleuritic chest pain. Patient has cough with clear sputum post CABG GASTROINTESTINAL: Denies any type of dysphagia to either liquids or solids. Denies nausea, vomiting, pyrosis, early satiety, abdominal pain, diarrhea, constipation, or changes in stool consistency or caliber. GENITOURINARY: Denies frequency, urgency, nocturia, hematuria or incontinence. Andres in place PHYSICAL EXAM GENERAL APPEARANCE: Patient is alert, oriented, resting comfortably in his bed, with drips in place. NECK: Supple. No JVD. CHEST: Normal chest expansion. Telemetry in place. LUNGS: Absence of any rales, rhonchi or any wheezing. Chest tube in place. CARDIOVASCULAR: Regular. S1 and S2 normal. No appreciable rubs, murmurs or gallops. ABDOMEN: Soft, nontender, and nondistended. There is no rebound, voluntary guarding, or rigidity. : Deferred. No Andres. EXTREMITIES: Diminished pulse in the left lower extremity, cold to touch, swollen, mottled and cyanotic appearance in all the toes. Pulses present per Doppler. SKIN: No skin breakdown. Vital Signs (last 8hr) Date Time Temp Pulse Resp B/P (MAP) Pulse Ox O2 Delivery O2 Flow Rate FiO2 01/03/25 12:30 81 22 153/82 (105) 98 01/03/25 12:15 86 18 163/88 (113) 98 01/03/25 12:00 81 22 167/89 (115) 99 01/03/25 12:00 98.1 01/03/25 12:00 99 Nasal Cannula* 3 32 01/03/25 11:45 83 24 163/88 (113) 100 01/03/25 11:30 80 22 153/83 (106) 98 01/03/25 11:15 86 22 129/71 (90) 98 01/03/25 11:15 83 17 N/Cannula Low lpm 2.0 28 01/03/25 11:00 83 22 167/91 (116) 99 01/03/25 10:59 80 20 01/03/25 10:45 81 23 171/94 (119) 100 01/03/25 10:30 82 23 164/88 (113) 98 01/03/25 10:15 79 15 154/83 (106) 99 01/03/25 10:00 84 19 158/87 (110) 99 01/03/25 09:45 79 17 152/82 (105) 100 01/03/25 09:30 85 22 152/81 (104) 98 01/03/25 09:15 82 17 148/83 (104) 99 01/03/25 09:00 82 18 149/82 (104) 99 01/03/25 08:45 85 19 151/82 (105) 97 01/03/25 08:30 89 22 155/84 (107) 98 01/03/25 08:15 91 22 145/78 (100) 97 01/03/25 08:00 88 22 160/86 (110) 98 01/03/25 08:00 99 Nasal Cannula* 3 32 01/03/25 08:00 97.9 01/03/25 07:45 85 18 170/91 (117) 99 01/03/25 07:30 90 21 169/87 (114) 98 01/03/25 07:15 86 19 172/90 (117) 99 01/03/25 07:00 76 18 165/86 (112) 100 01/03/25 06:45 82 18 156/82 (106) 97 01/03/25 06:30 83 21 166/88 (114) 100 01/03/25 06:28 84 17 N/Cannula Low lpm 2.0 28 01/03/25 06:24 83 20 01/03/25 06:00 82 14 163/86 (111) 99 32 LABS: Laboratory: Test 01/03/25 03:26 01/02/25 17:25 01/02/25 12:29 01/02/25 04:02 Range/Units White Blood Count 6.4 4.8-10.8 K/uL Red Blood Count 3.80 L 4.50-6.20 MIL/uL Hemoglobin 9.9 L 14.0-18.0 g/dL Hematocrit 30.1 L 42-54 % Mean Corpuscular Volume 79.2 79-99 fL Mean Corpuscular Hemoglobin 26.1 L 27.0-33.0 pg Mean Corpuscular Hemoglobin Concent 32.9 32.0-36.0 g/dL Red Cell Distribution Width 22.5 H 11.0-15.5 % Platelet Count 163 130-400 K/uL Mean Platelet Volume 10.6 H 7.5-10.5 fL Immature Granulocyte % (Auto) 1.1 H 0-1 % Neutrophils (%) (Auto) 78.9 H 40.0-77.0 % Lymphocytes (%) (Auto) 11.0 L 21.0-51.0 % Monocytes (%) (Auto) 8.8 3.0-13.0 % Eosinophils (%) (Auto) 0.0 0.0-8.0 % Basophils (%) (Auto) 0.2 0.0-5.0 % Neutrophils # (Auto) 5.0 1.8-7.7 K/uL Lymphocytes # (Auto) 0.7 L 1.0-4.8 K/uL Monocytes # (Auto) 0.6 0.1-1.0 K/uL Eosinophils # (Auto) 0.00 0.00-0.70 K/uL Basophils # (Auto) 0.01 0.00-0.20 K/uL Absolute Immature Granulocyte (auto 0.07 0-1 K/uL Segmented Neutrophils % 87 H 40-70 % Lymphocytes % (Manual) 7 L 22-44 % Monocytes % (Manual) 2 2-9 % Other Cells % 4 H 0-0 Nucleated Red Blood Cells 7.1 H 0.0-0.19 % Differential Comment MANUAL DIFFERENTIAL White Cell Morphology Comment Platelet Morphology Comment See comments Red Blood Cell Morphology HYPOCHROM CELLS 1+ Activated Partial Thromboplast Time 46.7 H 26.3-35.5 SEC Sodium Level 143 136-145 mmol/L Potassium Level 3.5 3.5-5.1 mmol/L Chloride Level 101 101-111 mmol/L Carbon Dioxide Level 28 21-32 mmol/L Blood Urea Nitrogen 73 H 7-18 mg/dL Creatinine 7.4 H 0.5-1.3 mg/dL Glomerular Filtration Rate Calc 8 >90 mL/min Random Glucose 113 H 70-105 mg/dL Total Calcium 8.4 L 8.5-10.1 mg/dL Magnesium Level 2.20 1.80-2.40 mg/dL Total Bilirubin 0.5 0.2-1.0 mg/dL Aspartate Amino Transf (AST/SGOT) 111 H 10-37 U/L Alanine Aminotransferase (ALT/SGPT) 43 12-78 U/L Alkaline Phosphatase 186 H 50-136 U/L Total Protein 5.1 L 6.0-8.3 g/dL Albumin 1.7 L 3.5-5.0 g/dL Vitamin B12 Level 4286 H 193-986 pg/mL Phosphorus Level 8.0 H 2.5-4.9 mg/dL Whole Blood Glucose 87 70-110 MG/DL Total Creatine Kinase 494 #*H 21-232 U/L Test 01/02/25 00:27 Range/Units Stool Occult Blood POSITIVE H NEGATIVE Current Medications Medications (Trade) Dose Ordered Sig/Mila Route PRN Reason Start Time Stop Time Status Last Admin Dose Admin Acetaminophen (TYLenol 325MG TAB) 650 mg Q4H PRN PO Temp >38.3C(AFTER EXTUBATION) 12/28/24 14:00 01/27/25 13:59 Acetaminophen (TYLenol 325MG TAB) 650 mg Q6H PRN PO MILD PAIN (1-3) 12/24/24 01:30 12/28/24 13:57 DC 12/27/24 23:45 650 MG Acetaminophen (TYLenol 325MG TAB) 650 mg Q6H PRN PO TEMPERATURE GREATER THAN 101.5 12/24/24 03:00 12/28/24 14:10 DC Acetaminophen (TYLenol 325MG TAB) 650 mg Q6H PRN PO MILD PAIN (1-3) 12/28/24 14:00 01/27/25 13:59 01/03/25 03:28 650 MG Acetaminophen (TYLenol 650MG SUPPOSITORY) 650 mg Q4H PRN RC Temp >38.3C WHILE INTUBATED 12/28/24 14:00 01/27/25 13:59 Acetaminophen (acetaMINOPHEN) 1,000 mg Q6H6 IV 12/28/24 18:00 12/29/24 17:59 DC 12/29/24 17:27 1,000 MG Acetaminophen (acetaMINOPHEN) 1,000 mg Q6H6 IVPB 12/30/24 00:00 12/31/24 20:14 DC 12/30/24 18:16 1,000 MG Albumin Human 250 ml @ 0 mls/hr AD PRN IV IF HEMODYNAMICALLY UNSTABLE 12/28/24 14:00 12/29/24 09:28 DC 12/29/24 09:28 250 MLS/HR Albuterol (DUOneb) 1 UDVIAL [id number] IH 01/01/25 18:00 01/01/25 15:25 DC Albuterol Sulfate (Proventil 0.083% 2.5mg/3ml) 2.5 mg ONCE STAT IH 12/30/24 10:22 12/30/24 10:32 DC 12/30/24 10:43 2.5 MG Aminocaproic Acid 55864 mg/Sodium Chloride 310 ml @ 25 mls/hr AD IV 12/28/24 14:00 12/28/24 14:14 DC Aminocaproic Acid 77869 mg/Sodium Chloride 480 ml @ 0 mls/hr AD PRN IV BLEEDING CONTROL 12/27/24 11:00 01/26/25 10:59 Argatroban 250 mg/ Sodium Chloride 250 ml @ 0 mls/hr PROTOCOL IV 12/31/24 16:30 01/30/25 16:29 12/31/24 22:32 2.61 MLS/HR Aspirin (Aspirin 81mg Ec Tab) 81 mg DAILY PO 12/24/24 09:00 01/23/25 08:59 01/03/25 08:14 81 MG Atorvastatin Calcium (LIPItor 40MG) 40 mg HS PO 12/24/24 21:00 01/01/25 11:16 DC 12/31/24 20:44 40 MG Benzocaine (Cepacol Sore Throat Lozenge) 1 each Q4H PRN MM SORE THROAT 01/03/25 13:30 02/02/25 13:29 01/03/25 13:27 1 EACH Bisacodyl (DulcoLAX) 10 mg DAILY PRN RC CONSTIPATION - MOM INEFFECTIVE 12/29/24 14:00 01/28/25 13:59 12/30/24 11:05 10 MG Calcium Gluconate 1 gm/Sodium Chloride 60 ml @ 200 mls/hr AD PRN IV HYPOCALCEMIA 12/28/24 14:00 01/27/25 13:59 01/01/25 01:52 200 MLS/HR Cefazolin Sodium (ANCEF 1 gm vial) 2 gm ONCALL IVP 12/26/24 16:30 12/26/24 16:28 DC Cefazolin Sodium (Ancef) 2 gm ONCALL PRN IVP SURGERY 12/26/24 16:30 12/28/24 13:57 DC Cefazolin Sodium (Ancef) 2 gm Q8H IVPB 12/28/24 19:00 12/29/24 11:01 DC 12/29/24 11:04 2 GM Dexmedetomidine/ Sodium Chloride (PRECEdex 400MCG/ 100ML-NS) 400 mcg PROTOCOL IV 12/28/24 14:00 12/29/24 13:59 DC 12/29/24 12:16 400 MCG Dexmedetomidine/ Sodium Chloride (PRECEdex 400MCG/ 100ML-NS) 400 mcg PROTOCOL IV 12/29/24 18:00 01/28/25 17:59 12/31/24 06:05 400 MCG Dextrose (D50w) 50 ml AD PRN IV HYPOGLYCEMIA PROTOCOL 12/28/24 14:00 01/27/25 13:59 Dextrose (D50w) 50 ml ONCE STAT IV 12/30/24 11:36 12/30/24 11:39 DC 12/30/24 11:45 50 ML Dextrose/Sodium Chloride 1,000 ml @ 50 mls/hr Q20H IV 12/30/24 11:30 01/01/25 16:17 DC 01/01/25 02:09 50 MLS/HR Dobutamine HCl/ Dextrose 250 ml @ 0 mls/hr PROTOCOL IV 12/29/24 14:00 01/28/25 13:59 01/02/25 08:30 8.3 MLS/HR Docusate Sodium (COLace 100MG CAP) 100 mg BID PO 12/28/24 21:00 12/29/24 08:01 DC 12/28/24 20:53 100 MG Docusate Sodium (COLace LIQUID 100MG/10ML) 100 mg BID PO 12/29/24 08:00 01/28/25 07:59 01/03/25 08:13 100 MG Enoxaparin Sodium (Lovenox) 30 mg DAILY SQ 12/31/24 09:00 12/31/24 16:12 DC Epinephrine HCl 10 mg/Sodium Chloride 250 ml @ 0 mls/hr AD PRN IV TITRATE 12/27/24 11:00 01/26/25 10:59 12/30/24 04:29 0 MLS/HR Epinephrine HCl 10 mg/Sodium Chloride 250 ml @ 0 mls/hr AD PRN IV POST-OP CARDIOVASCULAR ORDERS 12/28/24 14:00 12/28/24 14:14 DC Famotidine (Pepcid 20mg Vial) 20 mg BID IV 12/28/24 21:00 12/31/24 20:20 DC 12/31/24 08:51 20 MG Famotidine (Pepcid 20mg Vial) 20 mg Q48H IV 01/02/25 09:00 01/02/25 04:51 DC Famotidine (Pepcid 20mg Tab) 20 mg DAILY PO 12/24/24 09:00 12/28/24 13:54 DC 12/26/24 10:19 20 MG Furosemide (LASix 20MG TAB) 20 mg Q12H PO 12/30/24 09:00 12/30/24 08:34 DC Furosemide (LASix 20MG VIAL) 20 mg Q12H IV 12/29/24 09:00 12/30/24 08:34 DC 12/29/24 09:20 20 MG Furosemide 100 mg/ Sodium Chloride 100 ml @ 0 mls/hr PROTOCOL IV 12/29/24 14:30 01/28/25 14:29 01/03/25 08:47 10 MLS/HR Glucagon (Glucagon 1mg Kit) 1 mg AD PRN IM HYPOGLYCEMIA PROTOCOL 12/28/24 14:00 01/27/25 13:59 Heparin Sodium (Porcine) (HEParin 5,000 UNIT VIAL) *calculation based on ACTUAL B... AD PRN IV HEPARIN PROTOCOL 12/24/24 02:30 12/28/24 13:54 DC 12/24/24 17:32 5,000 UNIT Heparin Sodium/ Dextrose 250 ml @ 0 mls/hr Q6H IV 12/24/24 02:30 12/28/24 13:54 DC 12/27/24 17:04 11.3 MLS/HR Hydralazine HCl (APRESOLine 20MG INJ) 10 mg Q6H PRN IV For:SBP above 160;DBP above 90 12/24/24 03:00 12/28/24 13:54 DC Insulin Human Regular (humuLIN R 100 UNIT/ML 3ML) 10 unit ONCE STAT IV 12/30/24 11:42 12/30/24 11:45 DC 12/30/24 12:01 10 UNIT Insulin Human Regular (humuLIN R 100 UNIT/ML 3ML) 10 unit ONCE STAT SQ 12/30/24 11:36 12/30/24 11:43 DC Insulin Human Regular 100 unit/ Sodium Chloride 100 ml @ 0 mls/hr AD IV 12/28/24 14:00 12/29/24 17:55 DC 12/28/24 17:09 5 MLS/HR Ipratropium [place] (AtrovENT UD) 0.5 mg [id number] IH 12/30/24 12:00 01/29/25 11:59 01/03/25 10:59 0.5 MG Lactulose (Constulose 20gm/ 30ml Udcup) 20 gm BID PRN PO CONSTIPATION 12/24/24 03:00 12/28/24 13:54 DC 12/26/24 21:30 20 GM Lactulose (Constulose 20gm/ 30ml Udcup) 20 gm BID PRN PO CONSTIPATION 12/28/24 14:00 01/27/25 13:59 12/30/24 07:50 20 GM Lidocaine HCl/ Dextrose 250 ml @ 0 mls/hr AD PRN IV TITRATE 12/28/24 22:30 12/29/24 16:00 DC 12/29/24 06:53 15 MLS/HR Magnesium Hydroxide (Milk Of Magnesium 30ml) 30 ml DAILY PRN PO CONSTIPATION 12/28/24 14:00 01/27/25 13:59 12/30/24 10:18 30 ML Magnesium Sulfate 50 ml @ 12.5 mls/hr AD PRN IV MAG LEVEL LESS THAN 2.0 12/28/24 14:00 01/27/25 13:59 12/28/24 18:42 12.5 MLS/HR Magnesium Sulfate 50 ml @ 0 mls/hr PROTOCOL PRN IV MAGNESIUM PROTOCOL 12/26/24 15:00 12/28/24 14:10 DC Metolazone (zarOXOlyn) 5 mg ONCE PO 12/31/24 12:00 12/31/24 20:18 DC 12/31/24 12:01 5 MG Metolazone (zarOXOlyn) 5 mg ONCE PO 01/01/25 16:30 01/02/25 16:29 DC 01/01/25 16:53 5 MG Metoprolol Tartrate (loprESSOR) 12.5 mg BID PO 12/30/24 09:00 01/29/25 08:59 01/03/25 08:14 12.5 MG Metoprolol Tartrate (loprESSOR) 25 mg BID PO 12/25/24 21:00 12/28/24 13:54 DC 12/28/24 09:28 25 MG Morphine Sulfate (morPHINE 2MG SYG) 0.5 mg Q2H PRN IV MODERATE PAIN (4-6) 12/28/24 14:00 12/29/24 13:59 DC Morphine Sulfate (morPHINE 2MG SYG) 1 mg Q2H PRN IV SEVERE PAIN (7-10) 12/28/24 14:00 12/29/24 13:59 DC 12/28/24 17:05 1 MG Morphine Sulfate (morPHINE 2MG SYG) 2 mg Q4H PRN IVP SEVERE PAIN (7-10) 12/24/24 03:00 12/28/24 13:54 DC 12/26/24 02:43 2 MG Nitroglycerin (Nitroglycerin 1gm Oint) 0.5 inch Q8H5 TD 12/24/24 01:30 12/28/24 13:54 DC 12/27/24 12:57 0.5 INCH Nitroglycerin/ Dextrose 0 ml @ 0 mls/hr AD IV 12/28/24 14:00 12/31/24 14:00 DC Nitroglycerin/ Dextrose 0 ml @ 0 mls/hr AD PRN IV TITRATE 01/01/25 06:30 01/31/25 06:29 01/03/25 02:14 0 MLS/HR Norepinephrine Bitartrate 250 ml @ 0 mls/hr AD PRN IV TITRATE 12/27/24 11:00 01/26/25 10:59 12/30/24 12:34 3.8 MLS/HR Norepinephrine Bitartrate 8 mg/ Dextrose 250 ml @ 0 mls/hr AD PRN IV POST-OP CARDIOVASCULAR ORDERS 12/28/24 14:00 12/28/24 14:14 DC Ondansetron HCl (zoFRAN 4MG INJ) 4 mg Q6H PRN IV NAUSEA/VOMITING 12/24/24 03:00 12/28/24 13:54 DC Ondansetron HCl (zoFRAN 4MG INJ) 4 mg Q6H PRN IV NAUSEA/VOMITING 12/28/24 14:00 01/27/25 13:59 12/30/24 11:01 4 MG Pantoprazole Sodium (PROTonix 40MG INJ) 40 mg Q12H IVP 01/02/25 05:00 02/01/25 04:59 01/03/25 04:34 40 MG Piperacillin Sod/ Tazobactam Sod (Zosyn 3.375gm+NS 50ml) 3.375 gm Q12H IV 12/30/24 15:30 01/09/25 15:29 01/03/25 02:31 3.375 GM Potassium Phosphate 250 ml @ 42 mls/hr AD PRN IV LOW PHOS LEVEL 12/28/24 14:00 01/27/25 13:59 12/29/24 06:12 42 MLS/HR Potassium Chloride 100 ml @ 100 mls/hr AD PRN IV POTASSIUM PROTOCOL 12/26/24 15:00 12/28/24 13:54 DC Potassium Chloride 100 ml @ 100 mls/hr AD PRN IV HYPOKALEMIA 12/28/24 14:00 01/27/25 13:59 12/29/24 01:21 100 MLS/HR Potassium Chloride (K-Dur/Klor-Con 20meq) 20 meq AD PRN PO POTASSIUM PROTOCOL 12/26/24 15:00 12/28/24 13:54 DC 12/26/24 18:27 20 MEQ Potassium Chloride (KCl 10% Elixir 20meq/15ml) 20 meq AD PRN PO POTASSIUM PROTOCOL 12/26/24 15:00 12/28/24 13:54 DC Propofol 100 ml @ 0 mls/hr AD PRN IV SEDATION 12/28/24 14:00 01/01/25 13:59 DC Sodium Polystyrene Sulfonate (kayEXALate 15 GM/60 ML) 30 gm ONCE STAT PO 12/30/24 11:36 12/30/24 11:39 DC 12/30/24 11:45 30 GM Sodium Bicarbonate (Sodium Bicarb 50meq 50ml Vial) 50 meq AD PRN IV OTHER[SEE DOSING INSTRUCTIONS] 12/28/24 14:00 12/31/24 14:00 DC 12/30/24 12:45 100 MEQ Sodium Chloride 500 ml @ 0 mls/hr AD IV 12/28/24 14:00 01/27/25 13:59 Sodium Chloride 1,000 ml @ 10 mls/hr ONCE IV 12/28/24 14:00 12/29/24 13:59 DC 12/28/24 17:06 10 MLS/HR Sodium Chloride (NS Flush 10ml) 10 ml Q8H PRN IVP IV LINE FLUSH 12/28/24 14:00 01/27/25 13:59 Tramadol HCl (UltRAM) 25 mg Q6H PRN PO MODERATE PAIN (4-6) 12/28/24 14:00 12/29/24 13:56 DC 12/29/24 11:05 25 MG Tramadol HCl (UltRAM) 50 mg Q6H PRN PO SEVERE PAIN (7-10) 12/28/24 14:00 12/29/24 13:56 DC Vasopressin 20 units/Sodium Chloride 100 ml @ 0 mls/hr PROTOCOL IV 12/30/24 15:30 01/29/25 15:29 12/31/24 10:40 6 MLS/HR DIAGNOSTICS / RADIOLOGY: [ ] ASSESSMENT: 1. Non-STEMI. 2. Multi-vessel coronary artery disease status post CABG 12/28/2024 3. s/p LLE femoral thrombectomy 4. HFrEF LV ejection fraction 25-30% by echo on 01/01/2025 5. Mild ischemic cardiomyopathy with LVEF 45-50 by left heart catheterization. 6. Hypertension. 7. Anemia. PLAN: ACS NSTEMI due to Multi vessel CAD, s/p CABG Day 5 * Continue aspirin, atorvastatin * Continue argatroban and wean nitroglycerin GTT as per cardiology recommendation * Plan to start Clopidogrel on discharge, as per Cardiology consult * Monitor chest tube output * Strict I/O and daily weights HFrEF LV ejection fraction 25-30% by echo on 01/01/2025 * Patient LVEF is 25-30% by echocardiography, down from 50-55% on 12/27/24 * Continue Lasix per protocol * Resume GDMT for heart failure when weaned from pressors and more stable * Strict I&O and daily weights S/P LLE femoral thrombectomy * Patient underwent left lower extremity femoral thrombectomy on 01/01, after finding monophasic waveforms be on popliteal artery by arterial Doppler * Continue atorvastatin and aspirin * Resume clopidogrel as DAPT prior to discharge * Monitor leg perfusion, pulses, swelling, and discoloration Anemia, post CABG * Patient received 4 units of packed RBCs * Patient hemoglobin is 9.9 today * Iron panel showed Iron 20, % Sat 5.5, TIBC 360 indicating Iron deficiency * Monitor CBC daily in the a.m. daily * Monitor for signs of bleeding Acute on chronic renal dysfunction * Patient BUN is 73 and creatinine 7.4, (16 and 0.9 POA) * Nephrology consult recommended continuation of Lasix and no acute need for renal replacement therapy * Patient urine output has improved, currently 3.4L * Monitor CBC and electrolytes in the a.m. daily GI prophylaxis with Protonix 40 mg IV Continue DVT prophylaxis with SCDs ATTESTATION BY PHYSICIAN I have seen and examined the patient. I reviewed the documentation, medical decision making, and treatment plan as noted by the resident provider above. I agree with the findings and plan of care. Arnulfo Rios MD, HARSHAVARDHA MD Jan 03, 2025 13:52
--- NOTE | 2025-01-03 15:20 | NUR ---
SPEECH NOTE: FOLLOW UP HANGING FLAGS DECORATOR coordinated with nurse Ingram. Pt tolerating diet recommendations of pureed solids, moderately thick liquids, and pills crushed with pureed solids with no s/s of aspiration. All questions answered. Addendum: 01/03/[address] [facility] Amended: Links added.
--- NOTE | 2025-01-03 18:20 | PN ---
[facility] PROGRESS NOTE Date Patient Seen: Jan 03, 2025 Time of Visit:10:00 Supervising Physician: Monika Sauceda MD Primary Care Physician: Joe Felton D.O. Outpatient Specialists: [ ] Inpatient Consults: CK Mcnair, Radha Swartz, Dr Guzman Attending: Festus Tovar MD PROBLEM LIST: Multi-vessel coronary artery disease status post CABG 12/28/2024 Acute left lower extremity ischemia, Left LE Arterial occlusion S/P removal of IABP and thrombectomy LE 12/31/24 Non-STEMI Acute metabolic encephalopathy - multifactorial Mild ischemic cardiomyopathy with LVEF 45-50 by left heart catheterization. Hypertension Anemia Acute kidney injury with hyperkalemia INTERVAL HISTORY: Patient is awake alert and oriented x2. He is calm cooperative and following commands. No major overnight events as per RN. He continues on nitroglycerin at 40 micrograms/minute and dobutamine at 2 mcg/kg per minute. Blood pressure is 146/77. Urine output 3.4 L, chest tube drained 310 mL in the last 24 hours with a I&O balance of-2.2 L. H&H is stable 9.9/30.1 platelet count of 163 K. Neutrophils are 78.9. On chemistry kidneys are worsening creatinine of 7.4 with a GFR of eight glucose 113 mg/dL total calcium of 8.4 AST of 111 alkaline phosphatase 186 albumin of 1.7 total protein of 5.1 vitamin B12 is elevated at 4286. Per Neprhology there is no acute need for renal replacement therapy at this time. We will continue to follow CV surgery and Neprhology recommendations. REVIEW OF SYSTEMS: 12 point ROS reviewed with patient. Pertinent positives mentioned above. Otherwise negative. PHYSICAL EXAM: GENERAL: altered, on precedex HEENT: EOMI, Sclera non icteric, moist mucosa NECK: Supple, no JVD, trachea midline LUNGS: Chest tubes in place, HEART: Regular rate and rhythm. Normal S1 and S2, without murmurs ABD: Abdomen soft, nontender. Bowel sounds present EXT: No clubbing cyanosis or edema NEURO: mittens Vital Signs (last 8hr) Date Time Temp Pulse Resp B/P (MAP) Pulse Ox O2 Delivery O2 Flow Rate FiO2 01/03/25 17:15 86 19 176/86 (116) 99 01/03/25 17:00 88 19 163/80 (107) 98 01/03/25 16:45 92 19 177/82 (113) 98 01/03/25 16:30 88 21 168/84 (112) 97 01/03/25 16:15 93 19 162/81 (108) 100 01/03/25 16:00 91 32 179/84 (115) 99 01/03/25 16:00 98.1 01/03/25 16:00 99 Nasal Cannula* 3 32 01/03/25 15:45 86 20 166/82 (110) 99 01/03/25 15:30 84 20 164/83 (110) 98 01/03/25 15:15 86 25 167/84 (111) 97 01/03/25 15:00 88 28 146/77 (100) 100 01/03/25 14:45 95 20 118/51 (73) 98 01/03/25 14:30 91 20 176/88 (117) 100 01/03/25 14:15 85 20 159/80 (106) 99 01/03/25 14:00 86 22 146/73 (97) 99 01/03/25 13:45 89 22 153/75 (101) 99 01/03/25 13:30 86 14 143/75 (97) 98 01/03/25 13:15 86 17 150/81 (104) 97 01/03/25 13:00 86 27 146/79 (101) 95 01/03/25 12:45 87 24 162/88 (112) 98 01/03/25 12:30 81 22 153/82 (105) 98 01/03/25 12:15 86 18 163/88 (113) 98 01/03/25 12:00 81 22 167/89 (115) 99 01/03/25 12:00 98.1 01/03/25 12:00 99 Nasal Cannula* 3 32 01/03/25 11:45 83 24 163/88 (113) 100 01/03/25 11:30 80 22 153/83 (106) 98 01/03/25 11:15 86 22 129/71 (90) 98 01/03/25 11:15 83 17 N/Cannula Low lpm 2.0 28 01/03/25 11:00 83 22 167/91 (116) 99 01/03/25 10:59 80 20 01/03/25 10:45 81 23 171/94 (119) 100 01/03/25 10:30 82 23 164/88 (113) 98 01/03/25 10:15 79 15 154/83 (106) 99 01/03/25 10:00 84 19 158/87 (110) 99 LABS: Hematology Labs: Test 01/03/25 03:26 Range/Units White Blood Count 6.4 4.8-10.8 K/uL Red Blood Count 3.80 L 4.50-6.20 MIL/uL Hemoglobin 9.9 L 14.0-18.0 g/dL Hematocrit 30.1 L 42-54 % Mean Corpuscular Volume 79.2 79-99 fL Mean Corpuscular Hemoglobin 26.1 L 27.0-33.0 pg Mean Corpuscular Hemoglobin Concent 32.9 32.0-36.0 g/dL Red Cell Distribution Width 22.5 H 11.0-15.5 % Platelet Count 163 130-400 K/uL Mean Platelet Volume 10.6 H 7.5-10.5 fL Immature Granulocyte % (Auto) 1.1 H 0-1 % Neutrophils (%) (Auto) 78.9 H 40.0-77.0 % Lymphocytes (%) (Auto) 11.0 L 21.0-51.0 % Monocytes (%) (Auto) 8.8 3.0-13.0 % Eosinophils (%) (Auto) 0.0 0.0-8.0 % Basophils (%) (Auto) 0.2 0.0-5.0 % Neutrophils # (Auto) 5.0 1.8-7.7 K/uL Lymphocytes # (Auto) 0.7 L 1.0-4.8 K/uL Monocytes # (Auto) 0.6 0.1-1.0 K/uL Eosinophils # (Auto) 0.00 0.00-0.70 K/uL Basophils # (Auto) 0.01 0.00-0.20 K/uL Absolute Immature Granulocyte (auto 0.07 0-1 K/uL Segmented Neutrophils % 87 H 40-70 % Lymphocytes % (Manual) 7 L 22-44 % Monocytes % (Manual) 2 2-9 % Other Cells % 4 H 0-0 Nucleated Red Blood Cells 7.1 H 0.0-0.19 % Differential Comment MANUAL DIFFERENTIAL White Cell Morphology Comment Platelet Morphology Comment See comments Red Blood Cell Morphology HYPOCHROM CELLS 1+ Chemistry Labs: Test 01/03/25 03:26 01/02/25 17:25 01/02/25 12:29 01/02/25 04:02 Range/Units Sodium Level 143 136-145 mmol/L Potassium Level 3.5 3.5-5.1 mmol/L Chloride Level 101 101-111 mmol/L Carbon Dioxide Level 28 21-32 mmol/L Blood Urea Nitrogen 73 H 7-18 mg/dL Creatinine 7.4 H 0.5-1.3 mg/dL Glomerular Filtration Rate Calc 8 >90 mL/min Random Glucose 113 H 70-105 mg/dL Total Calcium 8.4 L 8.5-10.1 mg/dL Magnesium Level 2.20 1.80-2.40 mg/dL Total Bilirubin 0.5 0.2-1.0 mg/dL Aspartate Amino Transf (AST/SGOT) 111 H 10-37 U/L Alanine Aminotransferase (ALT/SGPT) 43 12-78 U/L Alkaline Phosphatase 186 H 50-136 U/L Total Protein 5.1 L 6.0-8.3 g/dL Albumin 1.7 L 3.5-5.0 g/dL Vitamin B12 Level 4286 H 193-986 pg/mL Phosphorus Level 8.0 H 2.5-4.9 mg/dL Whole Blood Glucose 87 70-110 MG/DL Total Creatine Kinase 494 #*H 21-232 U/L Coagulation Labs: Test 01/03/25 16:05 Range/Units Activated Partial Thromboplast Time 45.5 H 26.3-35.5 SEC DIAGNOSTICS / RADIOLOGY RESULTS: [ ] PLAN Continue PT continue IS Continue follow Cardiothoracic Surgeons postop protocol Neurovascular checks to lower extremities Monitor for bleeding Electrolyte protocol Daily labs and chest x-rays in a.m. PT/OT when able Follow cardiology recs Follow nephrology recs Follow GI recs NEURO: Minimize central acting medications as possible. Fall Precautions. Well lighted room through the day and minimize interruptions through the night to prevent acute delirium. PULMONARY: Supplemental 02 as needed Titrate Fio2 to keep Spo2 > or = 90% DuoNebs and CPT as needed IS hourly while awake for pulmonary hygiene Out of bed to chair as tolerated CARDIOVASCULAR: Follow hemodynamics. Titrate vasopressor to keep MAP >65 or systolic blood pressure >95mmHg DRIPS: Lasix Dobutamine LINES: RT IJ CVC GI & NUTRITION: Continue nutritional support Aspirations precautions Prokinetic agents and laxatives as needed KIDNEYS & ELECTROLYTES: Strict monitoring of intake and output Daily weights Avoid nephrotoxic agents Monitor electrolytes and replace as needed Goal urine output of 30mL/hr or 0.5mL/kg/hr ENDOCRINE: Maintain blood glucose between 100-180 at all times. Insulin sliding scale for blood glucose management INFECTIOUS DISEASE: Trend temperature. Quiñones-culture if febrile. Micro: [ ] Antibiotics: Zosyn HEMATOLOGY & COAGULATION: Monitor H&H. Keep Hgb > 7 Transfuse 1 unit of PRBC for Hgb < 7 Transfuse 1 pack of platelets of platelets < 20, 000 Watch for any signs and symptoms of bleeding SKIN: Pressure ulcer prevention per facility protocol Rehab: PT/OT Prophylaxis: GI: Pepcid DVT: per CV surgery Code Status: Full Resuscitation Disposition: ICU Other: Total patient Critical Care time 35 minutes, time excluded any procedures. Case was discussed and seen with my supervising physician. The above plan was formulated and agreed upon. [facility] Jan 03, 2025 18:20
--- NOTE | 2025-01-03 21:40 | HMCIMG ---
EXAM: CR Chest, single view. CLINICAL HISTORY: PP COMPARISON: Prior chest radiograph dated 02 January 2025. FINDINGS: Right-sided central venous catheter with tip in the region of the superior vena cava. Chest tubes are changing positions. Mild right-sided pleural effusion with adjacent lung atelectasis. Subsegmental atelectasis in the lingula. Poststernotomy status. Mild cardiomegaly. No evidence of pneumothorax. No acute osseous abnormality. IMPRESSION: Right-sided central venous catheter with tip in the region of the superior vena cava. Mild right-sided pleural effusion with adjacent lung atelectasis. Subsegmental atelectasis in the lingula. Poststernotomy status. Mild cardiomegaly. No evidence of pneumothorax. Compared to the prior study, there is a mild reduction in the right-sided pleural effusion. /[place]
[2025-01-03] MEDS: SODIUM CHLORIDE 3% FOR INHALATION 4 ML/AMP VIAL.NEB IH ONE (22:24)
[2025-01-04] VITALS (98 sets, daily range): BP systolic 92–205; BP diastolic 50–103; PULSE 74–190; RESP 12–85; TEMP 97.7–99.1; O2SAT 97–99
--- NOTE | 2025-01-04 03:36 | PN ---
HISTORY OF PRESENT ILLNESS: A 54-year-old gentleman, status post CABG on 12/28, insertion of aortic balloon pump, status post removal and thrombectomy and fasciotomy on 12/31/2024. OBJECTIVE: GENERAL: Awake, alert, no acute distress, oriented, cooperative, follows commands, feels much better, hemodynamically stable. CHEST: Sternum stable. LUNGS: Clear. EXTREMITIES: Edema decreasing. Left lower extremity, he can dorsiflex his foot. He has got decreased sensation, but his motor is intact. Pulses are present by Doppler. ASSESSMENT: * Vascular: The patient had thrombosis of the profunda and superficial femoral artery. The balloon pump was removed and a thrombectomy was performed. He has good pulses. Fasciotomy was done. The patient has discoloration of the toes, which became cyanotic. We will continue with Argatroban for the time being as an anticoagulant. We will follow PT/PTT. * GI bleed. The patient has hemoccult positive, but hemoglobin remains stable. We will continue the Argatroban. Monitor bleeding. * Fluid overload. The Lasix drip has decreased to 2.5 as the BUN is up to 70 and the creatinine up to 7.1. He continues to make urine over 100 mL an hour. We will replace free water and follow up Nephrology recommendations in regards to dialysis; however, the potassium and fluid status have been stable. * Coronary artery disease, status post CT, status post revascularization, hemodynamically stable, off pressors. PLAN: PT/OT, cardiac rehabilitation, monitor left foot. TID: [id number] RECEIPT: [id number]
[2025-01-04 05:20] LABS: CREATININE 7.8 mg/dL (0.5-1.3); GLOMERULAR FILTR. RATE CALC 8.0 mL/min (>90); GLUCOSE,RANDOM 104.0 mg/dL (70-105); PHOSPHORUS 7.1 mg/dL (2.5-4.9); SODIUM SERUM 140.0 mmol/L (136-145)
[2025-01-04 05:22] LABS: UREA NITROGEN, BLOOD 85.0 mg/dL (7-18)
[2025-01-04] MEDS: guaiFENesin-DM 200/20MG 10ML PO PRN (05:29)
[2025-01-04 05:46] LABS: IMMATURE GRANULOCYTE ABSOLUTE 0.14 K/uL (0-1); NUCLEATED RED BLOOD CELLS 5.2 % (0.0-0.19); PLATELET COUNT (AUTO) 194 K/uL (130-400); RED BLOOD CELL COUNT(AUTO) 4.14 MIL/uL (4.50-6.20); RED CELL DISTRIBUTION WIDTH 22.9 % (11.0-15.5); WHITE BLOOD COUNT (AUTO) 9.6 K/uL (4.8-10.8)
[2025-01-04 06:08] LABS: EOSINOPHILS % (MANUAL) 1 % (1-6); LYMPHOCYTES % (MANUAL) 11 % (22-44); MAN.DIFF COMMENT-IMPRESSION MANUAL DIF; MONOCYTES % (MANUAL) 8 % (2-9); SEGMENTED NEUTROPHILS % 80 % (40-70)
[2025-01-04 06:09] LABS: PLATELET MORPHOLOGY COMMENT ADEQUATE
[2025-01-04] MEDS: AMIOdarone 150MG/100ML BAG 100 ML IV ONE (06:27)
--- NOTE | 2025-01-04 06:31 | EKG ---
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
[2025-01-04] MEDS: AMIODARONE 360MG/200ML BAG 200 ML IV ONE (06:40)
--- NOTE | 2025-01-04 07:20 | NUR ---
STATUS 0603- PT CONVERTED TO AFIB RVR 0609-EKG TO CONFIRM AFIB ASBP 70'S LEVOPHED STARTED AT 0.1MCG/KG/MIN 0616-DR. PONCE NOTIFIED NEW ORDERS RECEIVED AND WILL BE CARRIED OUT. 06- DIGOXIN 0.5MG GIVEN X 1 NOW 06- AMIODARONE BOLUS STARTED 0642- AMIODARONE 1MG/MIN DRIP STARTED. 0700- LEVOPHED WEANED OFF 07- PT CONVERTED TO SINUS RHYTHM 90'S
--- NOTE | 2025-01-04 08:58 | PN ---
FOLLOWUP PROGRESS NOTE SUBJECTIVE: A 54-year-old male with a history of diabetes mellitus and hypertension. He has a history of coronary artery disease. The patient is status post coronary artery bypass graft surgery. The patient has had acute renal failure postoperatively. Creatinine has been elevated. Urine output has improved with the Lasix and he is being seen as a followup visit for all of the above. REVIEW OF SYSTEMS: CONSTITUTIONAL: He is feeling improved. HEENT: No change in vision. No change in hearing. CARDIOVASCULAR: There is no current chest pain or palpitations. PULMONARY: His shortness of breath is improved. GASTROINTESTINAL: He is tolerating a diet. MUSCULOSKELETAL: Complains of weakness. PHYSICAL EXAMINATION: VITAL SIGNS: Blood pressure is 143/73, pulse 90s. He is afebrile. GENERAL: He is a chronically ill male, much older than appearing. HEENT: Head is atraumatic. Pupils are equal, roving to light. Oropharynx is without exudate. Nares clear. NECK: There is no JVP. There is no thyromegaly, no mass. CARDIOVASCULAR: Regular. There is no S3 or S4 gallop. LUNGS: Coarse with equal thoracic movement. ABDOMEN: Soft, nondistended, and nontender. EXTREMITIES: Reveal no clubbing or cyanosis. NEUROLOGIC: He is awake. He is alert. LABORATORY DATA: BUN 85, creatinine 7.8. Hemoglobin 10, hematocrit 32. IMPRESSION: * Acute renal failure. * Coronary artery disease, status post CABG. * Diabetes mellitus. * Hypertension. PLAN: The patient's creatinine appears to be stabilizing. I suspect that the creatinine will begin to improve over the next few days. The patient's urine output has improved and the diuretics continued to be adjusted. The patient's blood pressure medications continued to be adjusted. There is no need for any form of renal replacement therapy. All labs will be repeated in the morning. TID: [id number] RECEIPT: [id number]
[2025-01-04] MEDS: SODIUM CHLORIDE 3% FOR INHALATION 4 ML/AMP VIAL.NEB IH SCH (11:11)
--- NOTE | 2025-01-04 14:20 | PN ---
[facility] PROGRESS NOTE Date of Service: Jan 04, 2025 Time of Service: 14:19 SUBJECTIVE: This is a 54-year-old male who presented to [facility] with a non-STEMI. He underwent left heart catheterization which showed severe multi-vessel coronary artery disease with mid to apical inferior hypokinesis, LVEF 45-50%. He underwent echocardiogram 12/19/2024 which showed an ejection fraction of 55- 60%, mild LVH, normal-sized left atrium, mild mitral valve regurgitation and mild tricuspid valve regurgitation. [place] [facility] [place] 12/25 patient remains admitted to the PCU, case discussed with the RN, no acute events overnight, he denied chest pain, shortness shortness for breath, no nausea, no vomiting, no abdominal discomfort. Cardiology input noted and appreciated, patient to continue aspirin 81 mg p.o. daily and atorvastatin 40 mg p.o. daily. Continue metoprolol tartrate 25 mg p.o. b.i.d.. Pending evaluation by CT surgery for consideration for CABG. Discussed with the patient. 12/26 patient remains admitted to the PCU, case discussed with the RN, no acute events overnight, the time of my visit the patient is comfortably in bed, alert oriented x3, eating breakfast, tolerating well, denies nausea, no vomiting, no abdominal discomfort, he denies chest pain, no shortness a breath. Remains on aspirin 81 mg p.o. daily, atorvastatin and metoprolol 25 mg p.o. b.i.d.. Pending evaluation by CT surgery for consideration of CABG. 12/27 patient is seen and examined at bedside, case discussed with the RN, no acute events overnight, currently the patient NPO, scheduled for CABG today by Cardiothoracic surgeon. We will continue to follow. 12/28 patient is seen and examined at bedside, case discussed with the RN, no acute events overnight, currently the patient NPO, scheduled for CABG today by Cardiothoracic surgeon. We will continue to follow. 12/29 patient is seen and examined at bedside, remains admitted to the ICU, postoperative day 1., status post CABG 12/28/2024, patient on insulin drip, nitroglycerin drip, alert oriented x3 following commands, however was mildly agitated earlier this morning, motion with the RN started on Precedex. Patient with chest tube in place. Further recommendations per Cardiothoracic surgeon. 12/30 patient remains admitted to the ICU, case discussed with the RN, patient remains confused, trying to pull his IV lines, remains on Precedex. Throughout the balloon pump in place, just to be breath, remains on epinephrine, Levophed, Lasix drip, dobutamine drip. Creatinine today at 3.0. Nephrology consultation requested, we will follow input and recommendation. Continue to monitor liver enzymes in a.m., follow ammonia level (at the time of my dictation less than 10). Continue to follow critical care input and recommendation. Prognosis remains guarded. 12/31 54-year-old male who was transferred from [facility] with a non- STEMI. He underwent left heart catheterization which showed severe multi-vessel coronary artery disease with mid to apical inferior hypokinesis, LVEF 45-50%. He underwent echocardiogram 12/19/2024 which showed an ejection fraction of 55- 60%, mild LVH, normal-sized left atrium, mild mitral valve regurgitation and mild tricuspid valve regurgitation. He was [place] [facility] [place] Cardiothoracic surgeon consultation requested, patient underwent CABG 12/28/2024. Continue to follow Cardiothoracic input and recommendations. Patient has been mildly confused post procedure, started on Precedex. 01/01 54-year-old male who was transferred from [facility] with a non- STEMI. He underwent left heart catheterization which showed severe multi-vessel coronary artery disease with mid to apical inferior hypokinesis, LVEF 45-50%. He underwent echocardiogram 12/19/2024 which showed an ejection fraction of 55- 60%, mild LVH, normal-sized left atrium, mild mitral valve regurgitation and mild tricuspid valve regurgitation. He was [place] [facility] [place] Cardiothoracic surgeon consultation requested, patient underwent CABG 12/28/2024. At the time of my visit resting comfortably in bed, off Precedex, following commands, status post interval removal of intra-aortic balloon pump yesterday, remains on dobutamine and nitroglycerin drip as well as argatroban. Continue to follow critical Care and Cardiothoracic input and recommendations. 01/02/25: Patient was evaluated at the bedside. Today is postop Day 5 and he is recovering well. Patient underwent thrombectomy in the femoral artery of left lower extremity and removal of intra-aortic balloon pump yesterday. Patient has mottled appearance in the left great toe and dorsalis pedis pulsations are present. His chest tube output was 320 mL over the last 24 hours. His stool was positive for occult blood and a GI consult has been placed. Cardiology advised to continue the current treatment. Patient is weaned off Levophed and is currently on Lasix, dobutamine, nitroglycerin, and argatroban drips. A swallow test will be performed today to evaluate the need for removing NG tube. 01/03/25: Patient was evaluated at the bedside, this is postop day 6 and is recovering well. Patient has mottled appearance in the left great toe extending into all the digits. Dorsalis pedis pulsations were diminished with palpation but detected on Doppler. His chest tube output was 310 mL today. A GI consult was placed for occult blood however no intervention was recommended and advised to continue Protonix 40 mg. Nephrology recommended no renal replacement as pat ient has good urine output,3 L today and is responding well to diuresis. Patient is continued on Lasix, dobutamine, nitroglycerin, and argatroban drips. NG tube was removed and patient was started on pureed heart healthy diet as tolerated. 01/04/2025: Patient was evaluated at the bedside, this is postop day 7. Patient had an episode of AFib with rapid ventricular response this morning and was cardioverted with amiodarone and continued on drip. Patient's left leg discoloration has improved, but still has diminished pulses only detected by Doppler. His chest tube output is 140 mL. Patient's ERICK has been worsening with creatinine 7.8 today however he has adequate urine output, 3.5 L today. Cardiology recommended to reduce Lasix drip to 2.5 and nephrology advised that patient's creatinine is stabilizing and renal function will improve in the next few days. Patient is still continuing on argatroban, nitro, and dobutamine drips. Otherwise patient has been recovering well tolerating pureed food and only complains of occasional throat pain due to cough. He was encouraged to cough to clear the chest secretions and use p.r.n. benzocaine spray for relief. His chest x-ray shows clearing pleural effusion and pulmonary edema. REVIEW OF SYSTEMS CONSTITUTIONAL: Denies fevers, chills, or night sweats. No unintentional weight loss reported. NEUROLOGICAL: Denies headache, amaurosis fugax, motor weakness, sensory deficit, vertigo/spinning sensation, gait abnormalities, or tremors. CARDIOVASCULAR: Denies any exertional angina, dyspnea on exertion, orthopnea, paroxysmal nocturnal dyspnea, palpitations, life-threatening arrhythmias, claudication. PULMONARY: Denies any shortness of breath, hemoptysis, pleuritic chest pain. Patient has cough with clear sputum post CABG GASTROINTESTINAL: Denies any type of dysphagia to either liquids or solids. Denies nausea, vomiting, pyrosis, early satiety, abdominal pain, diarrhea, constipation, or changes in stool consistency or caliber. GENITOURINARY: Denies frequency, urgency, nocturia, hematuria or incontinence. Andres in place PHYSICAL EXAM GENERAL APPEARANCE: Patient is alert, oriented, resting comfortably in his bed, with drips in place. NECK: Supple. No JVD. CHEST: Normal chest expansion. Telemetry in place. LUNGS: Absence of any rales, rhonchi or any wheezing. Chest tube in place. CARDIOVASCULAR: Regular. S1 and S2 normal. No appreciable rubs, murmurs or gallops. ABDOMEN: Soft, nontender, and nondistended. There is no rebound, voluntary guarding, or rigidity. : Deferred. No Andres. EXTREMITIES: Diminished pulse in the left lower extremity, cold to touch, swollen, mottled and cyanotic appearance in all the toes, Improving now Pulses present per Doppler. SKIN: No skin breakdown. Vital Signs (last 8hr) Date Time Temp Pulse Resp B/P (MAP) Pulse Ox O2 Delivery O2 Flow Rate FiO2 01/04/25 11:12 74 20 N/A Room Air 21 01/04/25 11:12 84 20 01/04/25 09:45 90 26 170/84 (112) 100 01/04/25 09:30 94 26 174/82 (112) 99 01/04/25 09:15 92 29 171/83 (112) 99 01/04/25 09:00 95 18 149/76 (100) 97 01/04/25 08:45 93 28 157/79 (105) 99 01/04/25 08:30 98 26 173/86 (115) 98 01/04/25 08:15 94 23 143/76 (98) 98 01/04/25 08:00 98 26 181/88 (119) 99 01/04/25 08:00 99.1 01/04/25 08:00 98 Nasal Cannula* 2 28 01/04/25 07:45 92 23 143/73 (96) 99 01/04/25 07:30 95 23 171/82 (111) 98 01/04/25 07:15 95 19 178/83 (114) 99 01/04/25 07:00 95 30 174/83 (113) 99 28 01/04/25 06:45 140 29 141/72 (95) 98 01/04/25 06:37 161 20 N/Cannula Low lpm 2.0 28 01/04/25 06:37 165 20 01/04/25 06:30 143 30 125/72 (89) 97 01/04/25 06:26 174 LABS: Laboratory: Test 01/04/25 09:55 01/04/25 04:38 01/03/25 03:26 Range/Units Activated Partial Thromboplast Time 45.8 H 26.3-35.5 SEC Potassium Level 3.8 3.5-5.1 mmol/L Magnesium Level 2.20 1.80-2.40 mg/dL White Blood Count 9.6 4.8-10.8 K/uL Red Blood Count 4.14 L 4.50-6.20 MIL/uL Hemoglobin 10.7 L 14.0-18.0 g/dL Hematocrit 32.5 L 42-54 % Mean Corpuscular Volume 78.5 L 79-99 fL Mean Corpuscular Hemoglobin 25.8 L 27.0-33.0 pg Mean Corpuscular Hemoglobin Concent 32.9 32.0-36.0 g/dL Red Cell Distribution Width 22.9 H 11.0-15.5 % Platelet Count 194 130-400 K/uL Mean Platelet Volume 11.4 H 7.5-10.5 fL Immature Granulocyte % (Auto) 1.5 H 0-1 % Neutrophils (%) (Auto) 80.7 H 40.0-77.0 % Lymphocytes (%) (Auto) 10.9 L 21.0-51.0 % Monocytes (%) (Auto) 6.2 3.0-13.0 % Eosinophils (%) (Auto) 0.5 0.0-8.0 % Basophils (%) (Auto) 0.2 0.0-5.0 % Neutrophils # (Auto) 7.7 1.8-7.7 K/uL Lymphocytes # (Auto) 1.0 1.0-4.8 K/uL Monocytes # (Auto) 0.6 0.1-1.0 K/uL Eosinophils # (Auto) 0.05 0.00-0.70 K/uL Basophils # (Auto) 0.02 0.00-0.20 K/uL Absolute Immature Granulocyte (auto 0.14 0-1 K/uL Segmented Neutrophils % 80 H 40-70 % Lymphocytes % (Manual) 11 L 22-44 % Monocytes % (Manual) 8 2-9 % Eosinophils % (Manual) 1 1-6 % Nucleated Red Blood Cells 5.2 H 0.0-0.19 % Differential Comment MANUAL DIF White Cell Morphology Comment Platelet Morphology Comment ADEQUATE Red Blood Cell Morphology HYPOCHROM CELLS 1+ Sodium Level 140 136-145 mmol/L Chloride Level 99 L 101-111 mmol/L Carbon Dioxide Level 25 21-32 mmol/L Blood Urea Nitrogen 85 *H 7-18 mg/dL Creatinine 7.8 H 0.5-1.3 mg/dL Glomerular Filtration Rate Calc 8 >90 mL/min Random Glucose 104 70-105 mg/dL Total Calcium 8.3 L 8.5-10.1 mg/dL Phosphorus Level 7.1 H 2.5-4.9 mg/dL Other Cells % 4 H 0-0 Total Bilirubin 0.5 0.2-1.0 mg/dL Aspartate Amino Transf (AST/SGOT) 111 H 10-37 U/L Alanine Aminotransferase (ALT/SGPT) 43 12-78 U/L Alkaline Phosphatase 186 H 50-136 U/L Total Protein 5.1 L 6.0-8.3 g/dL Albumin 1.7 L 3.5-5.0 g/dL Vitamin B12 Level 4286 H 193-986 pg/mL Vitamin D 25-Hydroxy 56.1 30.0-100.0 ng/mL Current Medications Medications (Trade) Dose Ordered Sig/Mila Route PRN Reason Start Time Stop Time Status Last Admin Dose Admin Acetaminophen (TYLenol 325MG TAB) 650 mg Q4H PRN PO Temp >38.3C(AFTER EXTUBATION) 12/28/24 14:00 01/27/25 13:59 Acetaminophen (TYLenol 325MG TAB) 650 mg Q6H PRN PO MILD PAIN (1-3) 12/24/24 01:30 12/28/24 13:57 DC 12/27/24 23:45 650 MG Acetaminophen (TYLenol 325MG TAB) 650 mg Q6H PRN PO TEMPERATURE GREATER THAN 101.5 12/24/24 03:00 12/28/24 14:10 DC Acetaminophen (TYLenol 325MG TAB) 650 mg Q6H PRN PO MILD PAIN (1-3) 12/28/24 14:00 01/27/25 13:59 01/03/25 20:09 650 MG Acetaminophen (TYLenol 650MG SUPPOSITORY) 650 mg Q4H PRN RC Temp >38.3C WHILE INTUBATED 12/28/24 14:00 01/27/25 13:59 Acetaminophen (acetaMINOPHEN) 1,000 mg Q6H6 IV 12/28/24 18:00 12/29/24 17:59 DC 12/29/24 17:27 1,000 MG Acetaminophen (acetaMINOPHEN) 1,000 mg Q6H6 IVPB 12/30/24 00:00 12/31/24 20:14 DC 12/30/24 18:16 1,000 MG Albumin Human 250 ml @ 0 mls/hr AD PRN IV IF HEMODYNAMICALLY UNSTABLE 12/28/24 14:00 12/29/24 09:28 DC 12/29/24 09:28 250 MLS/HR Albuterol (DUOneb) 1 UDVIAL [id number] IH 01/01/25 18:00 01/01/25 15:25 DC Albuterol Sulfate (Proventil 0.083% 2.5mg/3ml) 2.5 mg ONCE STAT IH 12/30/24 10:22 12/30/24 10:32 DC 12/30/24 10:43 2.5 MG Aminocaproic Acid 09353 mg/Sodium Chloride 310 ml @ 25 mls/hr AD IV 12/28/24 14:00 12/28/24 14:14 DC Aminocaproic Acid 84577 mg/Sodium Chloride 480 ml @ 0 mls/hr AD PRN IV BLEEDING CONTROL 12/27/24 11:00 01/26/25 10:59 Amiodarone HCl 150 mg/Dextrose 103 ml @ 618 mls/hr ONCE IV 01/04/25 06:30 01/04/25 06:21 DC Amiodarone HCl 360 mg/Dextrose 207.2 ml @ 33.3 mls/hr AD IV 01/04/25 06:30 01/04/25 06:21 DC Amiodarone HCl 540 mg/Dextrose 310.8 ml @ 16.7 mls/hr [id number] IV 01/04/25 06:30 02/03/25 06:29 01/04/25 13:01 16.7 MLS/HR Argatroban 250 mg/ Sodium Chloride 250 ml @ 0 mls/hr PROTOCOL IV 12/31/24 16:30 01/30/25 16:29 12/31/24 22:32 2.61 MLS/HR Aspirin (Aspirin 81mg Ec Tab) 81 mg DAILY PO 12/24/24 09:00 01/23/25 08:59 01/04/25 09:17 81 MG Atorvastatin Calcium (LIPItor 40MG) 40 mg HS PO 12/24/24 21:00 01/01/25 11:16 DC 12/31/24 20:44 40 MG Benzocaine (Cepacol Sore Throat Lozenge) 1 each Q4H PRN MM SORE THROAT 01/03/25 13:30 02/02/25 13:29 01/03/25 18:42 1 EACH Bisacodyl (DulcoLAX) 10 mg DAILY PRN RC CONSTIPATION - MOM INEFFECTIVE 12/29/24 14:00 01/28/25 13:59 12/30/24 11:05 10 MG Calcium Gluconate 1 gm/Sodium Chloride 60 ml @ 200 mls/hr AD PRN IV HYPOCALCEMIA 12/28/24 14:00 01/27/25 13:59 01/01/25 01:52 200 MLS/HR Cefazolin Sodium (ANCEF 1 gm vial) 2 gm ONCALL IVP 12/26/24 16:30 12/26/24 16:28 DC Cefazolin Sodium (Ancef) 2 gm ONCALL PRN IVP SURGERY 12/26/24 16:30 12/28/24 13:57 DC Cefazolin Sodium (Ancef) 2 gm Q8H IVPB 12/28/24 19:00 12/29/24 11:01 DC 12/29/24 11:04 2 GM Dexmedetomidine/ Sodium Chloride (PRECEdex 400MCG/ 100ML-NS) 400 mcg PROTOCOL IV 12/28/24 14:00 12/29/24 13:59 DC 12/29/24 12:16 400 MCG Dexmedetomidine/ Sodium Chloride (PRECEdex 400MCG/ 100ML-NS) 400 mcg PROTOCOL IV 12/29/24 18:00 01/28/25 17:59 12/31/24 06:05 400 MCG Dextrose (D50w) 50 ml AD PRN IV HYPOGLYCEMIA PROTOCOL 12/28/24 14:00 01/27/25 13:59 Dextrose (D50w) 50 ml ONCE STAT IV 12/30/24 11:36 12/30/24 11:39 DC 12/30/24 11:45 50 ML Dextrose/Sodium Chloride 1,000 ml @ 50 mls/hr Q20H IV 12/30/24 11:30 01/01/25 16:17 DC 01/01/25 02:09 50 MLS/HR Dobutamine HCl/ Dextrose 250 ml @ 0 mls/hr PROTOCOL IV 12/29/24 14:00 01/28/25 13:59 01/03/25 15:29 8.3 MLS/HR Docusate Sodium (COLace 100MG CAP) 100 mg BID PO 12/28/24 21:00 12/29/24 08:01 DC 12/28/24 20:53 100 MG Docusate Sodium (COLace LIQUID 100MG/10ML) 100 mg BID PO 12/29/24 08:00 01/28/25 07:59 01/03/25 08:13 100 MG Enoxaparin Sodium (Lovenox) 30 mg DAILY SQ 12/31/24 09:00 12/31/24 16:12 DC Epinephrine HCl 10 mg/Sodium Chloride 250 ml @ 0 mls/hr AD PRN IV TITRATE 12/27/24 11:00 01/26/25 10:59 12/30/24 04:29 0 MLS/HR Epinephrine HCl 10 mg/Sodium Chloride 250 ml @ 0 mls/hr AD PRN IV POST-OP CARDIOVASCULAR ORDERS 12/28/24 14:00 12/28/24 14:14 DC Famotidine (Pepcid 20mg Vial) 20 mg BID IV 12/28/24 21:00 12/31/24 20:20 DC 12/31/24 08:51 20 MG Famotidine (Pepcid 20mg Vial) 20 mg Q48H IV 01/02/25 09:00 01/02/25 04:51 DC Famotidine (Pepcid 20mg Tab) 20 mg DAILY PO 12/24/24 09:00 12/28/24 13:54 DC 12/26/24 10:19 20 MG Furosemide (LASix 20MG TAB) 20 mg Q12H PO 12/30/24 09:00 12/30/24 08:34 DC Furosemide (LASix 20MG VIAL) 20 mg Q12H IV 12/29/24 09:00 12/30/24 08:34 DC 12/29/24 09:20 20 MG Furosemide 100 mg/ Sodium Chloride 100 ml @ 0 mls/hr PROTOCOL IV 12/29/24 14:30 01/28/25 14:29 01/03/25 16:54 2.5 MLS/HR Glucagon (Glucagon 1mg Kit) 1 mg AD PRN IM HYPOGLYCEMIA PROTOCOL 12/28/24 14:00 01/27/25 13:59 Guaifenesin/ Dextromethorphan (RobiTUSSin DM 200/20MG 10ML) 10 ml Q4H PRN PO COUGH 01/03/25 16:30 02/02/25 16:29 01/04/25 05:29 10 ML Heparin Sodium (Porcine) (HEParin 5,000 UNIT VIAL) *calculation based on ACTUAL B... AD PRN IV HEPARIN PROTOCOL 12/24/24 02:30 12/28/24 13:54 DC 12/24/24 17:32 5,000 UNIT Heparin Sodium/ Dextrose 250 ml @ 0 mls/hr Q6H IV 12/24/24 02:30 12/28/24 13:54 DC 12/27/24 17:04 11.3 MLS/HR Hydralazine HCl (APRESOLine 20MG INJ) 10 mg Q6H PRN IV For:SBP above 160;DBP above 90 12/24/24 03:00 12/28/24 13:54 DC Insulin Human Regular (humuLIN R 100 UNIT/ML 3ML) 10 unit ONCE STAT IV 12/30/24 11:42 12/30/24 11:45 DC 12/30/24 12:01 10 UNIT Insulin Human Regular (humuLIN R 100 UNIT/ML 3ML) 10 unit ONCE STAT SQ 12/30/24 11:36 12/30/24 11:43 DC Insulin Human Regular 100 unit/ Sodium Chloride 100 ml @ 0 mls/hr AD IV 12/28/24 14:00 12/29/24 17:55 DC 12/28/24 17:09 5 MLS/HR Ipratropium [place] (AtrovENT UD) 0.5 mg [id number] IH 12/30/24 12:00 01/29/25 11:59 01/04/25 11:11 0.5 MG Lactulose (Constulose 20gm/ 30ml Udcup) 20 gm BID PRN PO CONSTIPATION 12/24/24 03:00 12/28/24 13:54 DC 12/26/24 21:30 20 GM Lactulose (Constulose 20gm/ 30ml Udcup) 20 gm BID PRN PO CONSTIPATION 12/28/24 14:00 01/27/25 13:59 12/30/24 07:50 20 GM Lidocaine HCl/ Dextrose 250 ml @ 0 mls/hr AD PRN IV TITRATE 12/28/24 22:30 12/29/24 16:00 DC 12/29/24 06:53 15 MLS/HR Magnesium Hydroxide (Milk Of Magnesium 30ml) 30 ml DAILY PRN PO CONSTIPATION 12/28/24 14:00 01/27/25 13:59 12/30/24 10:18 30 ML Magnesium Sulfate 50 ml @ 12.5 mls/hr AD PRN IV MAG LEVEL LESS THAN 2.0 12/28/24 14:00 01/27/25 13:59 12/28/24 18:42 12.5 MLS/HR Magnesium Sulfate 50 ml @ 0 mls/hr PROTOCOL PRN IV MAGNESIUM PROTOCOL 12/26/24 15:00 12/28/24 14:10 DC Metolazone (zarOXOlyn) 5 mg ONCE PO 12/31/24 12:00 12/31/24 20:18 DC 12/31/24 12:01 5 MG Metolazone (zarOXOlyn) 5 mg ONCE PO 01/01/25 16:30 01/02/25 16:29 DC 01/01/25 16:53 5 MG Metoprolol Tartrate (loprESSOR) 12.5 mg BID PO 12/30/24 09:00 01/04/25 08:51 DC 01/03/25 20:09 12.5 MG Metoprolol Tartrate (loprESSOR) 25 mg BID PO 12/25/24 21:00 12/28/24 13:54 DC 12/28/24 09:28 25 MG Metoprolol Tartrate (loprESSOR) 25 mg TID PO 01/04/25 09:00 02/03/25 08:59 01/04/25 14:05 25 MG Morphine Sulfate (morPHINE 2MG SYG) 0.5 mg Q2H PRN IV MODERATE PAIN (4-6) 12/28/24 14:00 12/29/24 13:59 DC Morphine Sulfate (morPHINE 2MG SYG) 1 mg Q2H PRN IV SEVERE PAIN (7-10) 12/28/24 14:00 12/29/24 13:59 DC 12/28/24 17:05 1 MG Morphine Sulfate (morPHINE 2MG SYG) 2 mg Q4H PRN IVP SEVERE PAIN (7-10) 12/24/24 03:00 12/28/24 13:54 DC 12/26/24 02:43 2 MG Nitroglycerin (Nitroglycerin 1gm Oint) 0.5 inch Q8H5 TD 12/24/24 01:30 12/28/24 13:54 DC 12/27/24 12:57 0.5 INCH Nitroglycerin/ Dextrose 0 ml @ 0 mls/hr AD IV 12/28/24 14:00 12/31/24 14:00 DC Nitroglycerin/ Dextrose 0 ml @ 0 mls/hr AD PRN IV TITRATE 01/01/25 06:30 01/31/25 06:29 01/03/25 20:44 16.5 MLS/HR Norepinephrine Bitartrate 250 ml @ 0 mls/hr AD PRN IV TITRATE 12/27/24 11:00 01/26/25 10:59 01/04/25 06:14 0 MLS/HR Norepinephrine Bitartrate 8 mg/ Dextrose 250 ml @ 0 mls/hr AD PRN IV POST-OP CARDIOVASCULAR ORDERS 12/28/24 14:00 12/28/24 14:14 DC Ondansetron HCl (zoFRAN 4MG INJ) 4 mg Q6H PRN IV NAUSEA/VOMITING 12/24/24 03:00 12/28/24 13:54 DC Ondansetron HCl (zoFRAN 4MG INJ) 4 mg Q6H PRN IV NAUSEA/VOMITING 12/28/24 14:00 01/27/25 13:59 12/30/24 11:01 4 MG Pantoprazole Sodium (PROTonix 40MG INJ) 40 mg Q12H IVP 01/02/25 05:00 02/01/25 04:59 01/04/25 03:01 40 MG Piperacillin Sod/ Tazobactam Sod (Zosyn 3.375gm+NS 50ml) 3.375 gm Q12H IV 12/30/24 15:30 01/09/25 15:29 01/04/25 03:01 3.375 GM Potassium Phosphate 250 ml @ 42 mls/hr AD PRN IV LOW PHOS LEVEL 12/28/24 14:00 01/27/25 13:59 12/29/24 06:12 42 MLS/HR Potassium Chloride 100 ml @ 100 mls/hr AD PRN IV POTASSIUM PROTOCOL 12/26/24 15:00 12/28/24 13:54 DC Potassium Chloride 100 ml @ 100 mls/hr AD PRN IV HYPOKALEMIA 12/28/24 14:00 01/27/25 13:59 01/04/25 06:06 100 MLS/HR Potassium Chloride (K-Dur/Klor-Con 20meq) 20 meq AD PRN PO POTASSIUM PROTOCOL 12/26/24 15:00 12/28/24 13:54 DC 12/26/24 18:27 20 MEQ Potassium Chloride (KCl 10% Elixir 20meq/15ml) 20 meq AD PRN PO POTASSIUM PROTOCOL 12/26/24 15:00 12/28/24 13:54 DC Propofol 100 ml @ 0 mls/hr AD PRN IV SEDATION 12/28/24 14:00 01/01/25 13:59 DC Sodium Polystyrene Sulfonate (kayEXALate 15 GM/60 ML) 30 gm ONCE STAT PO 12/30/24 11:36 12/30/24 11:39 DC 12/30/24 11:45 30 GM Sodium Bicarbonate (Sodium Bicarb 50meq 50ml Vial) 50 meq AD PRN IV OTHER[SEE DOSING INSTRUCTIONS] 12/28/24 14:00 12/31/24 14:00 DC 12/30/24 12:45 100 MEQ Sodium Chloride 500 ml @ 0 mls/hr AD IV 12/28/24 14:00 01/27/25 13:59 Sodium Chloride 1,000 ml @ 10 mls/hr ONCE IV 12/28/24 14:00 12/29/24 13:59 DC 12/28/24 17:06 10 MLS/HR Sodium Chloride (NS Flush 10ml) 10 ml Q8H PRN IVP IV LINE FLUSH 12/28/24 14:00 01/27/25 13:59 Sodium Chloride (Sodium Chloride 3% Inh) 4 ML [id number] IH 01/04/25 12:00 02/03/25 11:59 01/04/25 11:11 4 ML Tramadol HCl (UltRAM) 25 mg Q6H PRN PO MODERATE PAIN (4-6) 12/28/24 14:00 12/29/24 13:56 DC 12/29/24 11:05 25 MG Tramadol HCl (UltRAM) 50 mg Q6H PRN PO SEVERE PAIN (7-10) 12/28/24 14:00 12/29/24 13:56 DC Vasopressin 20 units/Sodium Chloride 100 ml @ 0 mls/hr PROTOCOL IV 12/30/24 15:30 01/29/25 15:29 12/31/24 10:40 6 MLS/HR DIAGNOSTICS / RADIOLOGY: [ ] PATIENT: ZHEN IVEY MR#: [id number] : 1970 SEX: M AGE: 54 LOCATION: [facility] ORDER 2300 STATUS: ADM IN REPORT#: [id number] SERVICE 0600 REASON: pp ORDERING PHYSICIAN: CHEYENNE HENSON PROCEDURE: CXR1VW - CHEST 1VW EXAM: CR Chest, single view. CLINICAL HISTORY: PP COMPARISON: Prior chest radiograph dated 02 January 2025. FINDINGS: Right-sided central venous catheter with tip in the region of the superior vena cava. Chest tubes are changing positions. Mild right-sided pleural effusion with adjacent lung atelectasis. Subsegmental atelectasis in the lingula. Poststernotomy status. Mild cardiomegaly. No evidence of pneumothorax. No acute osseous abnormality. IMPRESSION: Right-sided central venous catheter with tip in the region of the superior vena cava. Mild right-sided pleural effusion with adjacent lung atelectasis. Subsegmental atelectasis in the lingula. Poststernotomy status. Mild cardiomegaly. No evidence of pneumothorax. Compared to the prior study, there is a mild reduction in the right-sided pleural effusion. /[place] DICTATED BY: NOÉ SERNA Jr., MD DATE: 01/03/252238 ELECTRONICALLY SIGNED BY: ONÉ SERNA Jr., MD DATE: 01/03/252238 ASSESSMENT: 1. Non-STEMI. 2. Multi-vessel coronary artery disease status post CABG 12/28/2024 3. s/p LLE femoral thrombectomy 4. HFrEF LV ejection fraction 25-30% by echo on 01/01/2025 5. Mild ischemic cardiomyopathy with LVEF 45-50 by left heart catheterization. 6. Hypertension. 7. Anemia. PLAN: ACS NSTEMI due to Multi vessel CAD, s/p CABG Day 5 * Continue aspirin, atorvastatin * Continue argatroban and wean nitroglycerin GTT as per cardiology recommendation * Plan to start Clopidogrel on discharge, as per Cardiology consult * Encouraged to cough to clear the secretions and use p.r.n. benzocaine spray * Monitor chest tube output * Strict I/O and daily weights HFrEF LV ejection fraction 25-30% by echo on 01/01/2025 * Patient LVEF is 25-30% by echocardiography, down from 50-55% on 12/27/24 * Continue Lasix 2.5 ml/hr * Resume GDMT for heart failure when weaned from pressors and more stable * Strict I&O and daily weights S/P LLE femoral thrombectomy * Patient underwent left lower extremity femoral thrombectomy on 01/01, after finding monophasic waveforms be on popliteal artery by arterial Doppler * Continue atorvastatin and aspirin * Resume clopidogrel as DAPT prior to discharge * Monitor leg perfusion, pulses, swelling, and discoloration Anemia, post CABG * Patient received 4 units of packed RBCs * Patient hemoglobin is 10.7 today * Iron panel showed Iron 20, % Sat 5.5, TIBC 360 indicating Iron deficiency * Monitor CBC daily in the a.m. daily * Monitor for signs of bleeding Acute on chronic renal dysfunction * Patient BUN is 85 and creatinine 7.8, (16 and 0.9 POA) * Nephrology consult recommended continuation of Lasix and no acute need for renal replacement therapy * Patient urine output has improved, currently 3.5L * Monitor CBC and electrolytes in the a.m. daily GI prophylaxis with Protonix 40 mg IV Continue DVT prophylaxis with SCDs ATTESTATION BY PHYSICIAN I have seen and examined the patient. I reviewed the documentation, medical decision making, and treatment plan as noted by the resident provider above. I agree with the findings and plan of care. Arnulfo Rios MD, HARSHAVARDHA MD Jan 04, 2025 14:20
--- NOTE | 2025-01-04 14:45 | NUR ---
[facility] ICU Skin Assessment: Patient assessed by wound healing team. S/p Surgery, left foot stable, s/p declotting. Patient with other wounds or skin breakdown noted. Assessment and recommendations provided to primary nurse. Education provided. Addendum: 01/04/25 at 1631 by ANNIE FINN RN RN/ Amended: Links added.
[2025-01-04] MEDS: NITROGLYCERIN 1GM OINT 1 INCH/1GM TD SCH (14:50)
--- NOTE | 2025-01-04 15:00 | NUR ---
NURSING NOTE DR. PONCE ROUNDED ON PATIENT AT BEDSIDE. BOTH FEET ASSESSED; DP AND TP PULSES PRESENT BILATERALLY BY DOPPLER. NITRO PASTE APPLIED TO LEFT FOOT PER ORDERS. CARE ONGOING.
--- NOTE | 2025-01-04 18:04 | PN ---
SUBJECTIVE: A 54-year-old status post CABG, status post insertion of intraaortic balloon pump, status post removal, status post thrombectomy. OBJECTIVE: GENERAL: He is awake, alert. No acute distress. VITAL SIGNS: Stable as recorded in the medical record. CHEST: Sternum stable. Incision sealed. LUNGS: Clear. EXTREMITIES: Warm, well perfused. No evidence of DVT, hematoma or infection. Left foot continues to have discolored toes; however, they are numb, but he has some sensation and he has got normal motor. ASSESSMENT: * Vascular. Continue Argatroban. Switch to Arixtra and Plavix. * DVT prophylaxis. SCDs while in bed. * Coronary artery disease, CABG. Metoprolol 25 mg twice a day, aspirin 81 mg, and Plavix 75 mg. * Fluid overload. Lasix 2.5 mg an hour. * Acute kidney injury. The patient's creatinine has gone up to 7. BUN is in the 70s. He continues to make urine, but he is monitored carefully. He may require dialysis. Dr. Landis is on board as a sap bw consultant and he will make that decision. * Dyslipidemia. Lipitor 4 mg once daily. Plan as outlined. TID: [id number] RECEIPT: [id number]
--- NOTE | 2025-01-04 19:02 | PN ---
[facility] PROGRESS NOTE Date Patient Seen: Jan 04, 2025 Time of Visit: 09:00 Supervising Physician: Haider Alexis MD Primary Care Physician: Joe Felton D.O. Outpatient Specialists: [ ] Inpatient Consults: Dr Pina, CK, Radha Swartz, Dr Guzman Attending: Festus Tovar MD PROBLEM LIST: Multi-vessel coronary artery disease status post CABG 12/28/2024 Acute left lower extremity ischemia, Left LE Arterial occlusion S/P removal of IABP and thrombectomy LE 12/31/24 Non-STEMI Acute metabolic encephalopathy - multifactorial Mild ischemic cardiomyopathy with LVEF 45-50 by left heart catheterization. Hypertension Anemia Acute kidney injury with hyperkalemia INTERVAL HISTORY: This morning pt converted to afib w/ RVR and amiodarone gtt initiated per cardiology. Pt does continue on dobutamine gtt and decreased to 1mcg/kg/min by CV. He is currently in NAD, afebrile with T max of 99.1, Blood pressure 157/77 HR i the 80's and saturating 98% RA. Chest tube drained 140ml, Urine output 3.5L in the last 24 hrs with HUYEN Balance of -2.6L. Plt count 194K. HH stable 10.7/2.5. On chemistry Cr increasing 7.8BUN 85. K 3.2 on recheck 3.8. Chest XR improving this morning. Dr. Persaud was c onsulted By CV surgery. Left foot toes continues with dark discoloration but no increase in size of area. We will continue to follow CV surgery recs. REVIEW OF SYSTEMS: 12 point ROS reviewed with patient. Pertinent positives mentioned above. Otherwise negative. PHYSICAL EXAM: GENERAL: altered, on precedex HEENT: EOMI, Sclera non icteric, moist mucosa NECK: Supple, no JVD, trachea midline LUNGS: Chest tubes in place, HEART: Regular rate and rhythm. Normal S1 and S2, without murmurs ABD: Abdomen soft, nontender. Bowel sounds present EXT: No clubbing cyanosis or edema NEURO: mittens Vital Signs (last 8hr) Date Time Temp Pulse Resp B/P (MAP) Pulse Ox O2 Delivery O2 Flow Rate FiO2 01/04/25 17:45 86 26 184/95 (124) 96 01/04/25 17:30 83 29 175/93 (120) 96 01/04/25 17:00 85 26 177/95 (122) 97 01/04/25 16:45 82 26 169/88 (115) 97 01/04/25 16:30 82 19 158/85 (109) 97 01/04/25 16:15 81 30 153/83 (106) 95 01/04/25 16:00 97.7 82 22 165/86 93 Nasal Cannula 2.0 24 01/04/25 16:00 98 Room Air* 0 21 01/04/25 16:00 85 26 167/88 (114) 95 01/04/25 15:45 84 26 157/85 (109) 96 01/04/25 15:30 81 31 158/80 (106) 98 01/04/25 15:15 82 26 165/86 (112) 98 01/04/25 15:00 83 21 161/83 (109) 99 01/04/25 14:45 84 26 157/83 (107) 98 01/04/25 14:30 85 12 147/78 (101) 97 01/04/25 14:15 86 14 176/87 (116) 99 01/04/25 14:00 87 14 184/93 (123) 99 01/04/25 13:45 88 14 177/85 (115) 96 01/04/25 13:30 89 25 163/81 (108) 98 01/04/25 13:15 91 28 170/83 (112) 98 01/04/25 13:00 93 28 149/75 (99) 95 01/04/25 12:45 92 25 146/80 (102) 96 01/04/25 12:30 92 21 152/83 (106) 96 01/04/25 12:15 91 16 131/74 (93) 95 01/04/25 12:00 98 Room Air* 0 21 01/04/25 12:00 99.0 01/04/25 12:00 89 22 140/78 (98) 96 01/04/25 11:45 88 23 157/77 (103) 96 01/04/25 11:30 86 22 150/74 (99) 98 01/04/25 11:15 90 20 163/80 (107) 98 01/04/25 11:12 74 20 N/A Room Air 21 01/04/25 11:12 84 20 01/04/25 11:00 85 16 151/77 (101) 95 LABS: Hematology Labs: Test 01/04/25 04:38 01/03/25 03:26 Range/Units White Blood Count 9.6 4.8-10.8 K/uL Red Blood Count 4.14 L 4.50-6.20 MIL/uL Hemoglobin 10.7 L 14.0-18.0 g/dL Hematocrit 32.5 L 42-54 % Mean Corpuscular Volume 78.5 L 79-99 fL Mean Corpuscular Hemoglobin 25.8 L 27.0-33.0 pg Mean Corpuscular Hemoglobin Concent 32.9 32.0-36.0 g/dL Red Cell Distribution Width 22.9 H 11.0-15.5 % Platelet Count 194 130-400 K/uL Mean Platelet Volume 11.4 H 7.5-10.5 fL Immature Granulocyte % (Auto) 1.5 H 0-1 % Neutrophils (%) (Auto) 80.7 H 40.0-77.0 % Lymphocytes (%) (Auto) 10.9 L 21.0-51.0 % Monocytes (%) (Auto) 6.2 3.0-13.0 % Eosinophils (%) (Auto) 0.5 0.0-8.0 % Basophils (%) (Auto) 0.2 0.0-5.0 % Neutrophils # (Auto) 7.7 1.8-7.7 K/uL Lymphocytes # (Auto) 1.0 1.0-4.8 K/uL Monocytes # (Auto) 0.6 0.1-1.0 K/uL Eosinophils # (Auto) 0.05 0.00-0.70 K/uL Basophils # (Auto) 0.02 0.00-0.20 K/uL Absolute Immature Granulocyte (auto 0.14 0-1 K/uL Segmented Neutrophils % 80 H 40-70 % Lymphocytes % (Manual) 11 L 22-44 % Monocytes % (Manual) 8 2-9 % Eosinophils % (Manual) 1 1-6 % Nucleated Red Blood Cells 5.2 H 0.0-0.19 % Differential Comment MANUAL DIF White Cell Morphology Comment Platelet Morphology Comment ADEQUATE Red Blood Cell Morphology HYPOCHROM CELLS 1+ Other Cells % 4 H 0-0 Chemistry Labs: Test 01/04/25 09:55 01/04/25 04:38 01/03/25 03:26 Range/Units Potassium Level 3.8 3.5-5.1 mmol/L Magnesium Level 2.20 1.80-2.40 mg/dL Sodium Level 140 136-145 mmol/L Chloride Level 99 L 101-111 mmol/L Carbon Dioxide Level 25 21-32 mmol/L Blood Urea Nitrogen 85 *H 7-18 mg/dL Creatinine 7.8 H 0.5-1.3 mg/dL Glomerular Filtration Rate Calc 8 >90 mL/min Random Glucose 104 70-105 mg/dL Total Calcium 8.3 L 8.5-10.1 mg/dL Phosphorus Level 7.1 H 2.5-4.9 mg/dL Total Bilirubin 0.5 0.2-1.0 mg/dL Aspartate Amino Transf (AST/SGOT) 111 H 10-37 U/L Alanine Aminotransferase (ALT/SGPT) 43 12-78 U/L Alkaline Phosphatase 186 H 50-136 U/L Total Protein 5.1 L 6.0-8.3 g/dL Albumin 1.7 L 3.5-5.0 g/dL Vitamin B12 Level 4286 H 193-986 pg/mL Vitamin D 25-Hydroxy 56.1 30.0-100.0 ng/mL Coagulation Labs: Test 01/04/25 14:03 Range/Units Activated Partial Thromboplast Time 45.8 H 26.3-35.5 SEC DIAGNOSTICS / RADIOLOGY RESULTS: [ ] PLAN Continue PT continue IS Continue follow Cardiothoracic Surgeons postop protocol Neurovascular checks to lower extremities Monitor for bleeding Electrolyte protocol Daily labs and chest x-rays in a.m. PT/OT when able Follow cardiology recs Follow nephrology recs Follow GI recs NEURO: Minimize central acting medications as possible. Fall Precautions. Well lighted room through the day and minimize interruptions through the night to prevent acute delirium. PULMONARY: Supplemental 02 as needed Titrate Fio2 to keep Spo2 > or = 90% DuoNebs and CPT as needed IS hourly while awake for pulmonary hygiene Out of bed to chair as tolerated CARDIOVASCULAR: Follow hemodynamics. Titrate vasopressor to keep MAP >65 or systolic blood pressure >95mmHg DRIPS: Lasix Dobutamine LINES: RT IJ CVC GI & NUTRITION: Continue nutritional support Aspirations precautions Prokinetic agents and laxatives as needed KIDNEYS & ELECTROLYTES: Strict monitoring of intake and output Daily weights Avoid nephrotoxic agents Monitor electrolytes and replace as needed Goal urine output of 30mL/hr or 0.5mL/kg/hr ENDOCRINE: Maintain blood glucose between 100-180 at all times. Insulin sliding scale for blood glucose management INFECTIOUS DISEASE: Trend temperature. Quiñones-culture if febrile. Micro: [ ] Antibiotics: Zosyn HEMATOLOGY & COAGULATION: Monitor H&H. Keep Hgb > 7 Transfuse 1 unit of PRBC for Hgb < 7 Transfuse 1 pack of platelets of platelets < 20, 000 Watch for any signs and symptoms of bleeding SKIN: Pressure ulcer prevention per facility protocol Rehab: PT/OT Prophylaxis: GI: Pepcid DVT: per CV surgery Code Status: Full Resuscitation Disposition: ICU Other: Total patient Critical Care time 35 minutes, time excluded any procedures. Case was discussed and seen with my supervising physician. The above plan was formulated and agreed upon. ATTESTATION BY PHYSICIAN The patient has been seen and evaluated, the case has been discussed with the DEPUTY HEAD, I agree with the clinical findings and plan of care. Haider Alexis MD, [facility] Jan 04, 2025 19:02
--- NOTE | 2025-01-04 19:10 | NUR ---
NURSING NOTE DR. OCONNOR ROUNDED ON PATIENT AT BEDSIDE. BOTH FEET ASSESSED BY MD. DP AND PT PULSES PRESENT BILATERALLY BY DOPPLER AND VERIFIED BY MD. WOUND CARE COMPLETED BY MD. DR. OCONNOR DOES NOT RECOMMEND SPLINT TO FOOT. HE SAYS HE WILL SPEAK WITH DR. GALO ABOUT THE PATIENTS CASE. CARE ONGOING.
--- NOTE | 2025-01-04 19:21 | DS ---
REFERRING PHYSICIAN: Dr. Tejada. CONSULTING PHYSICIAN: Isac Ames MD REASON FOR CONSULTATION: End-stage renal failure, need for hemodialysis access. HISTORY: This is a 54-year-old gentleman new to hemodialysis, who understands the process of dialysis and has chosen to proceed with hemo. He is to undergo mapping of the left and right upper extremity in preparation for creation of brachiocephalic or radiocephalic AV fistula. I had the opportunity to discuss with him different modes of dialysis as well as the potential complications of the procedure including but not limited to postoperative bleeding, infection, multiple procedures in the future related to the creation of fistula and the potential of still syndrome and loss of . He understands and would like to proceed with brachiocephalic AV fistula planned for mapping tomorrow. TID: [id number] RECEIPT: [id number]
--- NOTE | 2025-01-04 20:03 | HMCIMG ---
EXAM: CR Chest, 2 View. CLINICAL HISTORY: PICC LINE PLACEMENT COMPARISON: 01/04/2025 FINDINGS: LUNGS: Mild pulmonary vascular congestion. No pulmonary infiltrates. PLEURAL SPACES: No evidence of pleural effusion or pneumothorax. MEDIASTINUM: Stable cardiomegaly. Again noted are sternotomy wires. BONES: No aggressive appearing osseous lesion seen. MISCELLANEOUS: Right sided PICC line with its tip in the superior vena cava. Right sided jugular sheath with its tip in the superior vena cava. IMPRESSION: 1. Right sided PICC line with its tip in the superior vena cava. Right sided jugular sheath with its tip in the superior vena cava. 2. Stable cardiomegaly. 3. Mild pulmonary vascular congestion. No pulmonary infiltrates. /[place]
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
--- NOTE | 2025-01-04 21:10 | CONS ---
HISTORY OF PRESENT ILLNESS: A 54-year-old diabetic male status post coronary artery bypass grafting performed 12/29/2024, then on 12/31/2024, had removal of an intraaortic balloon pump, thrombectomy and fasciotomy with removal of a thrombus femoral and popliteal arteries and the external iliac artery. According to the nursing staff after the patient had received the thrombectomy, the patient developed ruborous violaceous discoloration to his digits of the left foot. The patient has a past medical history that is significant for coronary artery disease. Status post coronary artery bypass grafting performed 12/28/2024, acute left lower extremity ischemia status post removal of intraaortic balloon pump and thrombectomy on 12/31/2024, non-STEMI myocardial infarction, acute metabolic encephalopathy, multifactorial, mild ischemic cardiomyopathy, hypertension, anemia, acute kidney injury with hyperkalemia, anemia, hypertension. MEDICATIONS: The patient is currently receiving amiodarone, nitroglycerin, metoprolol, argatroban, IV Zosyn. The patient is concerned of pain to his left foot as left foot feels cold. The patient has a nitro paste patch in place to the anterior foot and anterior ankle on that left side. REVIEW OF SYSTEMS: CONSTITUTIONAL: No chills, no fevers, no night sweats. No nausea, no vomiting, no diarrhea. HEENT: He is having pain to his left foot distal stump. PHYSICAL EXAMINATION: EXTREMITIES: The patient's examination today shows he does have palpable pedal pulses on the right. He does have pulses that are not palpable due to edema, but audible by Doppler of the posterior tibial and the dorsalis pedis artery on the left. He has a large hemorrhagic bulla that is 11 cm dorsal and 13 cm plantarly. There is hemorrhagic bulla to the tips of digits 1, 2, 3, 4, and 5 on that left side. The left foot is extremely cold to the touch. He has pain on palpation of the forefoot and midfoot on that left side. ASSESSMENT: Status post coronary artery bypass grafting 12/28/2024, status post removal of an intraaortic pump with thrombectomy. Status post coronary artery bypass grafting, status post removal of aortic pump, status post removal of clot with a thrombectomy, ischemic-appearing forefoot and midfoot on the left, possible embolic in nature. PLAN: I discussed the case with Cardiology. We will continue with the nitro paste. We will continue with the antibiotics. We will continue to monitor the progression of what appears to be demarcating necrosis of the tissues to that left foot. TID: [id number] RECEIPT: [id number]
[2025-01-05] VITALS (97 sets, daily range): BP systolic 83–191; BP diastolic 51–107; PULSE 77–95; RESP 11–56; TEMP 97.8–99.4; O2SAT 94–99
[2025-01-05 03:47] LABS: IMMATURE GRANULOCYTE ABSOLUTE 0.22 K/uL (0-1); NUCLEATED RED BLOOD CELLS 4.0 % (0.0-0.19); PLATELET COUNT (AUTO) 181 K/uL (130-400); RED BLOOD CELL COUNT(AUTO) 4.14 MIL/uL (4.50-6.20); RED CELL DISTRIBUTION WIDTH 24.0 % (11.0-15.5); WHITE BLOOD COUNT (AUTO) 10.2 K/uL (4.8-10.8)
[2025-01-05 03:57] LABS: GLOMERULAR FILTR. RATE CALC 7.0 mL/min (>90); GLUCOSE,RANDOM 97.0 mg/dL (70-105); SODIUM SERUM 140.0 mmol/L (136-145)
[2025-01-05 04:00] LABS: CREATININE 8.2 mg/dL (0.5-1.3); UREA NITROGEN, BLOOD 90.0 mg/dL (7-18)
--- NOTE | 2025-01-05 07:37 | PN ---
SUBJECTIVE: The patient is a 54-year-old diabetic, [place] male who is followed up for ischemic appearing forefoot and midfoot to his left foot. He is afebrile 98.8, pulse 90, respirations 27, blood pressure 156/84. White count 10.2, H and H 10.7 and 33.0, platelets 181. BUN and creatinine 90 and 8.2, potassium 3.2. The patient is being followed by Cardiology. He is being followed for coronary artery bypass grafting, left lower extremity thrombectomy, and removal of balloon pump 12/31, acute renal failure, new-onset atrial fibrillation, been on argatroban since 12/31. Nephrology is following the patient up for acute renal failure. He has coronary artery disease, status post CABG, status post removal of balloon pump and thrombectomy on the left, diabetes, hypertension, and atrial fibrillation. He has ischemic changes now to all digits of the left foot, dorsal forefoot, dorsal midfoot and area approximately 13 cm dorsally and 10 cm plantarly. He has large bullous lesion, encompassing the digits, the dorsal forefoot, and the plantar forefoot and midfoot. The patient is currently receiving IV Zosyn, vasopressin, ____, metoprolol, Precedex, furosemide, and dobutamine. He is complaining of pain to the left foot. OBJECTIVE: His examination today, he does have palpable pedal pulses to his foot on the right. He does have pedal pulses that are palpable on the left. They are not palpable due to edema, but they are audible by Doppler. Large hemorrhagic bulla, 11 cm dorsally and 13 cm plantarly. Large hemorrhagic bulla, the bulla encompassing the tips of all digits and is hemorrhagic. The left foot is extremely cold at dorsal forefoot, dorsal midfoot, plantar forefoot, and plantar midfoot. ASSESSMENT: Status post coronary artery bypass grafting 12/28/2024, status post removal of intra-aortic balloon pump with thrombectomy 12/31/2024, acute renal failure, status post thrombectomy, ischemic-appearing forefoot and midfoot on the left, possibly embolic in nature. Apparently, it occurred after the thrombectomy. PLAN: I will discuss the case with Cardiology. We will continue with the nitro paste, continue with the antibiotics, continue to monitor the progress, what appears to be demarcating necrosis to the tissue to the forefoot and midfoot on that left side. TID: [id number] RECEIPT: [id number]
--- NOTE | 2025-01-05 07:40 | HMCIMG ---
EXAM: CR Chest, single view. CLINICAL HISTORY: Post CABG. COMPARISON: Prior chest radiograph dated 03 January 2025. FINDINGS: Central venous catheter with tip in the region of the superior vena cava. Poststernotomy status. Borderline cardiomegaly. Mild right-sided pleural effusion with adjacent lung atelectasis. Intercostal drainage catheter in the left pleural cavity. No acute osseous abnormality. IMPRESSION: Central venous catheter with tip in the region of the superior vena cava. Poststernotomy status. Borderline cardiomegaly. Mild right-sided pleural effusion with adjacent lung atelectasis. Intercostal drainage catheter in the left pleural cavity. Compared to the prior study, there is no significant interval change. /[place]
--- NOTE | 2025-01-05 08:57 | PN ---
[facility] CARDIOLOGY PROGRESS NOTE Date Patient Seen: Jan 05, 2025 Time of Visit: 08:55 Problem List: ACSNSTEMI MVCAD LLE ALI status post thrombectomy and removal of IABP 12/31 Acute renal failure New onset atrial fibrillation, 1 hour duration (01/04) Interval History: s/p CABG s/p LLE femoral thrombectomy Argatroban since 12/31 - Patient with wet cough today UOP 1200 cc overnight, Cr uptrending to 8 today BP running 150s-160s. Physical Examination: GENERAL: [No acute distress.] NECK: R CVC LUNGS: [ diminished inspiratory effort. No wheezes, or rhonchi.] HEART: [Normal rate and rhythm. Normal S1 and S2 without murmurs, gallop or rub.] VASC: [Peripheral pulses +1 bilaterally. blistering to distal left foot with ecchymoses to distal digits] ABD: soft, nontender SKIN: [ecchymoses, blistering to LLE distal digits. sensation and motor intact NEURO: [Awake, alert , moves all extremities.] Laboratory: [ ] Hematology Labs: Test 01/05/25 03:20 01/04/25 04:38 Range/Units White Blood Count 10.2 4.8-10.8 K/uL Red Blood Count 4.14 L 4.50-6.20 MIL/uL Hemoglobin 10.6 L 14.0-18.0 g/dL Hematocrit 33.0 L 42-54 % Mean Corpuscular Volume 79.7 79-99 fL Mean Corpuscular Hemoglobin 25.6 L 27.0-33.0 pg Mean Corpuscular Hemoglobin Concent 32.1 32.0-36.0 g/dL Red Cell Distribution Width 24.0 H 11.0-15.5 % Platelet Count 181 130-400 K/uL Mean Platelet Volume 7.5-10.5 fL Immature Granulocyte % (Auto) 2.1 H 0-1 % Neutrophils (%) (Auto) 72.4 40.0-77.0 % Lymphocytes (%) (Auto) 15.9 L 21.0-51.0 % Monocytes (%) (Auto) 7.6 3.0-13.0 % Eosinophils (%) (Auto) 1.7 0.0-8.0 % Basophils (%) (Auto) 0.3 0.0-5.0 % Neutrophils # (Auto) 7.4 1.8-7.7 K/uL Lymphocytes # (Auto) 1.6 1.0-4.8 K/uL Monocytes # (Auto) 0.8 0.1-1.0 K/uL Eosinophils # (Auto) 0.17 0.00-0.70 K/uL Basophils # (Auto) 0.03 0.00-0.20 K/uL Absolute Immature Granulocyte (auto 0.22 0-1 K/uL Nucleated Red Blood Cells 4.0 H 0.0-0.19 % Segmented Neutrophils % 80 H 40-70 % Lymphocytes % (Manual) 11 L 22-44 % Monocytes % (Manual) 8 2-9 % Eosinophils % (Manual) 1 1-6 % Differential Comment MANUAL DIF White Cell Morphology Comment Platelet Morphology Comment ADEQUATE Red Blood Cell Morphology HYPOCHROM CELLS 1+ Chemistry Labs: Test 01/05/25 03:20 01/04/25 09:55 01/04/25 04:38 Range/Units Sodium Level 140 136-145 mmol/L Potassium Level 3.2 L 3.5-5.1 mmol/L Chloride Level 98 L 101-111 mmol/L Carbon Dioxide Level 26 21-32 mmol/L Blood Urea Nitrogen 90 *H 7-18 mg/dL Creatinine 8.2 *H 0.5-1.3 mg/dL Glomerular Filtration Rate Calc 7 >90 mL/min Random Glucose 97 70-105 mg/dL Total Calcium 8.1 L 8.5-10.1 mg/dL Magnesium Level 2.20 1.80-2.40 mg/dL Phosphorus Level 7.1 H 2.5-4.9 mg/dL Coagulation Labs: Test 01/05/25 07:56 Range/Units Activated Partial Thromboplast Time 40.2 H 26.3-35.5 SEC Impression and Plan: ACS-NSTEMI MVCAD s/p CABG with VG-RCA, VG-OM, TORRES-LAD and VG-distal LAD LLE ALI while IABP in place, status post femoral thrombectomy, placed on argatroban Post operative hypotension New onset atrial fibrillation with rapid ventricular response, converted. hx Hypertension ICMP LVEF 45-50 Anemia, stable. Acute renal failure Continue asa, statin. Resume DAPT prior to discharge due to ACS-NSTEMI on presentation, however for recurrence of atrial fibrillation, will need to discuss candidacy for therapeutic anticoagulation CHF GDMT: Increased metoprolol. Limited due to impaired renal function. Defer lasix gtt to nephrology and CTS. He may need HD. Encouraged use of IS Wean nitroglycerin gtt Obtain arterial duplex of the LLE. MACEY GALO DO Jan 05, 2025 08:57
--- NOTE | 2025-01-05 09:08 | PN ---
[facility] PROGRESS NOTE Date Patient Seen: Jan 05, 2025 Time of Visit: 09:07 Supervising Physician: Haider Alexis MD Primary Care Physician: Joe Felton D.O. Outpatient Specialists: [ ] Inpatient Consults: CK Mcnair, Radha Swartz, Dr Guzman Attending: Festus Tovar MD PROBLEM LIST: CAD post CABG 12/28/2024 Acute left lower extremity ischemia, Left LE Arterial occlusion S/P removal of IABP and thrombectomy LE 12/31/24 Acute on chronic combined heart failure with reduced EF of 25-30%, improving Cardiorenal syndrome Acute renal failure Non-STEMI POA Hypertension Anemia INTERVAL HISTORY: Patient is awake alert and oriented x2. No major overnight events. He reports still some tenderness to mid incision sternotomy line. Incision looks well approximated no signs of infection. He continues on dobutamine at 1 mcg/kg per minute, Lasix drip at 2.5 milligrams/hour urine argatroban drip. He has remained afebrile with a T-max of 99.3 in the last 24 hours. Latest blood pressure 130/80 with a heart rate in the 80s respiratory rate of 20 saturating 98% on room air. Urine output has been good 2.5 L out in the last 24 hours with a chest tube output of 400 mL and a balance of-2.1 L. CBC similar to yesterday H&H stable 10.6/33 platelet count of 181 K. chest x-ray with decreased pulmonary added. No pneumothorax no pleural effusion. Line for removal of right IJ central line. PICC line appears in good position. Dr Persaud has been consulted for left foot ischemia. Nitro paste has been ordered to foot. We will continue to follow cardiology and CV surgery recommendations REVIEW OF SYSTEMS: General: No malaise or fever. Neurological: No fainting episodes or seizures. HEENT: No nasal congestion or nasal secretion. Respiratory: No cough, shortness of breath, or wheezing Cardiac: No chest pain or palpitations. midsternal incision line tenderness Gastrointestinal: No vomiting or diarrhea. Genitourinary: No dysuria hematuria. Skin: No rashes or lesions. Hematological: No bruises or bleeding.+ lt foot pain Musculoskeletal: No joint pains or arthralgias. Psychiatric: No depression or panic attacks. PHYSICAL EXAM: GENERAL: Awake alert and oriented x2 HEENT: EOMI, Sclera non icteric, moist mucosa NECK: Supple, no JVD, trachea midline LUNGS: Chest tubes in place, HEART: Regular rate and rhythm. Normal S1 and S2, without murmurs ABD: Abdomen soft, nontender. Bowel sounds present EXT: No clubbing cyanosis or edema NEURO: GCS of 14 no focal weakness. Vital Signs (last 8hr) Date Time Temp Pulse Resp B/P (MAP) Pulse Ox O2 Delivery O2 Flow Rate FiO2 01/05/25 08:48 155/75 01/05/25 08:40 155/75 01/05/25 06:44 89 20 01/05/25 06:43 89 20 N/A Room Air 21 01/05/25 06:15 89 28 168/89 (115) 95 01/05/25 06:00 88 25 181/92 (121) 97 01/05/25 05:45 90 19 164/87 (112) 96 01/05/25 05:30 90 26 166/89 (114) 95 01/05/25 05:15 95 30 172/84 (113) 96 01/05/25 05:00 89 32 177/92 (120) 97 01/05/25 04:45 90 24 154/81 (105) 95 01/05/25 04:30 89 28 158/80 (106) 95 01/05/25 04:15 88 36 141/77 (98) 95 01/05/25 04:00 94 Room Air* 0 21 01/05/25 04:00 98.8 90 27 156/84 (108) 94 01/05/25 03:45 88 39 168/90 (116) 96 01/05/25 03:30 88 31 166/89 (114) 96 01/05/25 03:15 88 35 150/78 (102) 95 01/05/25 03:00 89 34 165/85 (111) 96 01/05/25 02:45 89 56 140/86 (104) 96 01/05/25 02:30 86 21 148/91 (110) 96 01/05/25 02:15 87 18 150/91 (110) 97 01/05/25 02:00 88 36 157/96 (116) 97 01/05/25 01:45 89 24 168/107 (127) 97 01/05/25 01:30 86 13 178/91 (120) 97 01/05/25 01:15 86 30 169/86 (113) 97 LABS: Hematology Labs: Test 01/05/25 03:20 01/04/25 04:38 Range/Units White Blood Count 10.2 4.8-10.8 K/uL Red Blood Count 4.14 L 4.50-6.20 MIL/uL Hemoglobin 10.6 L 14.0-18.0 g/dL Hematocrit 33.0 L 42-54 % Mean Corpuscular Volume 79.7 79-99 fL Mean Corpuscular Hemoglobin 25.6 L 27.0-33.0 pg Mean Corpuscular Hemoglobin Concent 32.1 32.0-36.0 g/dL Red Cell Distribution Width 24.0 H 11.0-15.5 % Platelet Count 181 130-400 K/uL Mean Platelet Volume 7.5-10.5 fL Immature Granulocyte % (Auto) 2.1 H 0-1 % Neutrophils (%) (Auto) 72.4 40.0-77.0 % Lymphocytes (%) (Auto) 15.9 L 21.0-51.0 % Monocytes (%) (Auto) 7.6 3.0-13.0 % Eosinophils (%) (Auto) 1.7 0.0-8.0 % Basophils (%) (Auto) 0.3 0.0-5.0 % Neutrophils # (Auto) 7.4 1.8-7.7 K/uL Lymphocytes # (Auto) 1.6 1.0-4.8 K/uL Monocytes # (Auto) 0.8 0.1-1.0 K/uL Eosinophils # (Auto) 0.17 0.00-0.70 K/uL Basophils # (Auto) 0.03 0.00-0.20 K/uL Absolute Immature Granulocyte (auto 0.22 0-1 K/uL Nucleated Red Blood Cells 4.0 H 0.0-0.19 % Segmented Neutrophils % 80 H 40-70 % Lymphocytes % (Manual) 11 L 22-44 % Monocytes % (Manual) 8 2-9 % Eosinophils % (Manual) 1 1-6 % Differential Comment MANUAL DIF White Cell Morphology Comment Platelet Morphology Comment ADEQUATE Red Blood Cell Morphology HYPOCHROM CELLS 1+ Chemistry Labs: Test 01/05/25 03:20 01/04/25 09:55 01/04/25 04:38 Range/Units Sodium Level 140 136-145 mmol/L Potassium Level 3.2 L 3.5-5.1 mmol/L Chloride Level 98 L 101-111 mmol/L Carbon Dioxide Level 26 21-32 mmol/L Blood Urea Nitrogen 90 *H 7-18 mg/dL Creatinine 8.2 *H 0.5-1.3 mg/dL Glomerular Filtration Rate Calc 7 >90 mL/min Random Glucose 97 70-105 mg/dL Total Calcium 8.1 L 8.5-10.1 mg/dL Magnesium Level 2.20 1.80-2.40 mg/dL Phosphorus Level 7.1 H 2.5-4.9 mg/dL Coagulation Labs: Test 01/05/25 07:56 Range/Units Activated Partial Thromboplast Time 40.2 H 26.3-35.5 SEC DIAGNOSTICS / RADIOLOGY RESULTS: [[facility] [address] [place] [address] IMAGING REPORT Signed PATIENT: ZHEN IVEY MR#: [id number] : 1970 SEX: M AGE: 54 LOCATION: [facility] ORDER 2300 STATUS: ADM IN REPORT#: [id number] SERVICE 0600 REASON: POST CABG ORDERING PHYSICIAN: KATHRIN PONCE MD PROCEDURE: CXR1VW - CHEST 1VW CHEST 1VW REASON: POST CABG COMPARISON: Prior study from 01/04/2025 is available. FINDINGS: Single view of the chest was obtained. Lungs are clear. There is mild cardiomegaly with median sternotomy with cardiac revascularization procedure. There is a right-sided chest tube in place. There is a right internal jugular vascular sheath in place.. . There is no pulmonary vascular congestion. Mediastinum and bony thorax appear unremarkable. IMPRESSION: 1. Mild cardiomegaly with median sternotomy 2. Support lines satisfactory position 3. No evidence of airspace consolidation or pulmonary venous congestion.. DICTATED BY: FRED NUNES MD DATE: 01/05/251400 ELECTRONICALLY SIGNED BY: FRED NUNES MD DATE: 01/05/251404 ] PLAN Continue PT continue IS Continue follow Cardiothoracic Surgeons postop protocol Neurovascular checks to lower extremities Monitor for bleeding Electrolyte protocol Daily labs and chest x-rays in a.m. PT/OT when able Follow cardiology recs Follow nephrology recs Follow GI recs Follow up Podiatry recommendations NEURO: Minimize central acting medications as possible. Fall Precautions. Well lighted room through the day and minimize interruptions through the night to prevent acute delirium. PULMONARY: Supplemental 02 as needed Titrate Fio2 to keep Spo2 > or = 90% DuoNebs and CPT as needed IS hourly while awake for pulmonary hygiene Out of bed to chair as tolerated CARDIOVASCULAR: Follow hemodynamics. Titrate vasopressor to keep MAP >65 or systolic blood pressure >95mmHg DRIPS: Lasix Dobutamine LINES: RT IJ CVC GI & NUTRITION: Continue nutritional support Aspirations precautions Prokinetic agents and laxatives as needed KIDNEYS & ELECTROLYTES: Strict monitoring of intake and output Daily weights Avoid nephrotoxic agents Monitor electrolytes and replace as needed Goal urine output of 30mL/hr or 0.5mL/kg/hr ENDOCRINE: Maintain blood glucose between 100-180 at all times. Insulin sliding scale for blood glucose management INFECTIOUS DISEASE: Trend temperature. Quiñones-culture if febrile. Micro: [ ] Antibiotics: Zosyn HEMATOLOGY & COAGULATION: Monitor H&H. Keep Hgb > 7 Transfuse 1 unit of PRBC for Hgb < 7 Transfuse 1 pack of platelets of platelets < 20, 000 Watch for any signs and symptoms of bleeding SKIN: Pressure ulcer prevention per facility protocol Rehab: PT/OT Prophylaxis: GI: Pepcid DVT: per CV surgery Code Status: Full Resuscitation Disposition: ICU Other: Total patient Critical Care time 35 minutes, time excluded any procedures. Case was discussed and seen with my supervising physician. The above plan was formulated and agreed upon. ATTESTATION BY PHYSICIAN The patient has been seen and evaluated, the case has been discussed with the RAW JUICE WEIGHER, I agree with the clinical findings and plan of care. Haider Alexis MD, NELLY J [employer] Jan 05, 2025 09:08
[2025-01-05] MEDS: ZOSYN 3.375GM +NS 50ML IV SCH (09:39)
--- NOTE | 2025-01-05 14:05 | HMCIMG ---
CHEST 1VW REASON: POST CABG COMPARISON: Prior study from 01/04/2025 is available. FINDINGS: Single view of the chest was obtained. Lungs are clear. There is mild cardiomegaly with median sternotomy with cardiac revascularization procedure. There is a right-sided chest tube in place. There is a right internal jugular vascular sheath in place.. . There is no pulmonary vascular congestion. Mediastinum and bony thorax appear unremarkable. IMPRESSION: 1. Mild cardiomegaly with median sternotomy 2. Support lines satisfactory position 3. No evidence of airspace consolidation or pulmonary venous congestion..
--- NOTE | 2025-01-05 15:54 | NUR ---
DR. OCONNOR AT BEDSIDE, PER MD IF PT HAS TO WALK PT TO HAVE WALKING BOOT WITH PADDING IN PLACE.
--- NOTE | 2025-01-05 16:02 | NUR ---
DR. KENT AT BEDSIDE, PER MD TUCKER TO GIVE 1 DOSE OF 20MEQ POTASSIUM IV ONLY, NEW ORDER FOR URINE ELECTROLYTES, OSMOLALITY,CREATININE AND ANALYSIS.
--- NOTE | 2025-01-05 16:19 | HMCIMG ---
US GUIDANCE FOR VASCULAR ACCES HISTORY: EVAL LT LUIS AND DPA FOR PATENCY S/P IABP REMOVAL TECHNIQUE: Real-time arterial doppler ultrasound of the lower extremity was performed. US GUIDANCE FOR VASCULAR ACCES HISTORY: EVAL LT LUIS AND DPA FOR PATENCY S/P IABP REMOVAL TECHNIQUE: Real-time arterial doppler ultrasound of the left lower extremity was performed. To evaluate patency of left anterior tibial and dorsalis pedis artery FINDINGS: The left anterior tibial artery and dorsalis pedis artery has no flow seen IMPRESSION: No fluid identified in the left anterior tibial and dorsalis pedis artery.
[2025-01-05 16:26] LABS: APPEARANCE,URINE CLEAR (CLEAR); GLUCOSE, URINE (UA) NEGATIVE (NEGATIVE); LEUKOCYTE ESTERASE ,URINE NEGATIVE Leu/uL (NEGATIVE); NITRATE,URINE NEGATIVE (NEGATIVE); OCCULT BLOOD,URINE MODERATE (NEGATIVE)
[2025-01-05 16:27] LABS: ADD UA MICROSCOPIC YES
[2025-01-05 16:28] LABS: CREATININE,URINE RANDOM 37.80 mg/dL (30-135)
--- NOTE | 2025-01-05 18:30 | PN ---
[facility] PROGRESS NOTE Date of Service: Jan 05, 2025 Time of Service: 18:10 SUBJECTIVE: This is a 54-year-old male who presented to [facility] with a non-STEMI. He underwent left heart catheterization which showed severe multi-vessel coronary artery disease with mid to apical inferior hypokinesis, LVEF 45-50%. He underwent echocardiogram 12/19/2024 which showed an ejection fraction of 55- 60%, mild LVH, normal-sized left atrium, mild mitral valve regurgitation and mild tricuspid valve regurgitation. He was transferred to [facility] for CABG. 12/25 patient remains admitted to the PCU, case discussed with the RN, no acute events overnight, he denied chest pain, shortness shortness for breath, no nausea, no vomiting, no abdominal discomfort. Cardiology input noted and appreciated, patient to continue aspirin 81 mg p.o. daily and atorvastatin 40 mg p.o. daily. Continue metoprolol tartrate 25 mg p.o. b.i.d.. Pending evaluation by CT surgery for consideration for CABG. Discussed with the patient. 12/26 patient remains admitted to the PCU, case discussed with the RN, no acute events overnight, the time of my visit the patient is comfortably in bed, alert oriented x3, eating breakfast, tolerating well, denies nausea, no vomiting, no abdominal discomfort, he denies chest pain, no shortness a breath. Remains on aspirin 81 mg p.o. daily, atorvastatin and metoprolol 25 mg p.o. b.i.d.. Pending evaluation by CT surgery for consideration of CABG. 12/27 patient is seen and examined at bedside, case discussed with the RN, no acute events overnight, currently the patient NPO, scheduled for CABG today by Cardiothoracic surgeon. We will continue to follow. 12/28 patient is seen and examined at bedside, case discussed with the RN, no acute events overnight, currently the patient NPO, scheduled for CABG today by Cardiothoracic surgeon. We will continue to follow. 12/29 patient is seen and examined at bedside, remains admitted to the ICU, postoperative day 1., status post CABG 12/28/2024, patient on insulin drip, nitroglycerin drip, alert oriented x3 following commands, however was mildly agitated earlier this morning, motion with the RN started on Precedex. Patient with chest tube in place. Further recommendations per Cardiothoracic surgeon. 12/30 patient remains admitted to the ICU, case discussed with the RN, patient remains confused, trying to pull his IV lines, remains on Precedex. Throughout the balloon pump in place, just to be breath, remains on epinephrine, Levophed, Lasix drip, dobutamine drip. Creatinine today at 3.0. Nephrology consultation requested, we will follow input and recommendation. Continue to monitor liver enzymes in a.m., follow ammonia level (at the time of my dictation less than 10). Continue to follow critical care input and recommendation. Prognosis remains guarded. 12/31 54-year-old male who was transferred from [facility] with a non- STEMI. He underwent left heart catheterization which showed severe multi-vessel coronary artery disease with mid to apical inferior hypokinesis, LVEF 45-50%. He underwent echocardiogram 12/19/2024 which showed an ejection fraction of 55- 60%, mild LVH, normal-sized left atrium, mild mitral valve regurgitation and mild tricuspid valve regurgitation. He was transferred to [facility] for CABG. Cardiothoracic surgeon consultation requested, patient underwent CABG 12/28/2024. Continue to follow Cardiothoracic input and recommendations. Patient has been mildly confused post procedure, started on Precedex. 01/01 54-year-old male who was transferred from [facility] with a non- STEMI. He underwent left heart catheterization which showed severe multi-vessel coronary artery disease with mid to apical inferior hypokinesis, LVEF 45-50%. He underwent echocardiogram 12/19/2024 which showed an ejection fraction of 55- 60%, mild LVH, normal-sized left atrium, mild mitral valve regurgitation and mild tricuspid valve regurgitation. He was transferred to [facility] for CABG. Cardiothoracic surgeon consultation requested, patient underwent CABG 12/28/2024. At the time of my visit resting comfortably in bed, off Precedex, following commands, status post interval removal of intra-aortic balloon pump yesterday, remains on dobutamine and nitroglycerin drip as well as argatroban. Continue to follow critical Care and Cardiothoracic input and recommendations. 01/02/25: Patient was evaluated at the bedside. Today is postop Day 5 and he is recovering well. Patient underwent thrombectomy in the femoral artery of left lower extremity and removal of intra-aortic balloon pump yesterday. Patient has mottled appearance in the left great toe and dorsalis pedis pulsations are present. His chest tube output was 320 mL over the last 24 hours. His stool was positive for occult blood and a GI consult has been placed. Cardiology advised to continue the current treatment. Patient is weaned off Levophed and is currently on Lasix, dobutamine, nitroglycerin, and argatroban drips. A swallow test will be performed today to evaluate the need for removing NG tube. 01/03/25: Patient was evaluated at the bedside, this is postop day 6 and is recovering well. Patient has mottled appearance in the left great toe extending into all the digits. Dorsalis pedis pulsations were diminished with palpation but detected on Doppler. His chest tube output was 310 mL today. A GI consult was placed for occult blood however no intervention was recommended and advised to continue Protonix 40 mg. Nephrology recommended no renal replacement as pat ient has good urine output,3 L today and is responding well to diuresis. Patient is continued on Lasix, dobutamine, nitroglycerin, and argatroban drips. NG tube was removed and patient was started on pureed heart healthy diet as tolerated. 01/04/2025: Patient was evaluated at the bedside, this is postop day 7. Patient had an episode of AFib with rapid ventricular response this morning and was cardioverted with amiodarone and continued on drip. Patient's left leg discoloration has improved, but still has diminished pulses only detected by Doppler. His chest tube output is 140 mL. Patient's ERICK has been worsening with creatinine 7.8 today however he has adequate urine output, 3.5 L today. Cardiology recommended to reduce Lasix drip to 2.5 and nephrology advised that patient's creatinine is stabilizing and renal function will improve in the next few days. Patient is still continuing on argatroban, nitro, and dobutamine drips. Otherwise patient has been recovering well tolerating pureed food and only complains of occasional throat pain due to cough. He was encouraged to cough to clear the chest secretions and use p.r.n. benzocaine spray for relief. His chest x-ray shows clearing pleural effusion and pulmonary edema. 01/05/2025: Patient was evaluated at the bedside and this is postop day. Patient has been in sinus rhythm since the AFib episode this morning. IV amiodarone was stopped and transitioned to p.o. 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 [employer] recommended applying nitroglycerin paste and and covered it in dressing. Patient's ERICK continues to worsen, creatinine 8.2 today. However he is maintaining a good urine output, 2500 today. He has been weaning of Lasix drip. Patient has been encouraged to use incentive spirometry and cough as tolerated to clear the chest secretions. Chest x-ray showed no evidence of pulmonary venous congestion today. REVIEW OF SYSTEMS CONSTITUTIONAL: Denies fevers, chills, or night sweats. No unintentional weight loss reported. NEUROLOGICAL: Denies headache, amaurosis fugax, motor weakness, sensory deficit, vertigo/spinning sensation, gait abnormalities, or tremors. CARDIOVASCULAR: Denies any exertional angina, dyspnea on exertion, orthopnea, paroxysmal nocturnal dyspnea, palpitations, life-threatening arrhythmias, claudication. PULMONARY: Denies any shortness of breath, hemoptysis, pleuritic chest pain. Patient has cough with clear sputum post CABG GASTROINTESTINAL: Denies any type of dysphagia to either liquids or solids. Denies nausea, vomiting, pyrosis, early satiety, abdominal pain, diarrhea, constipation, or changes in stool consistency or caliber. GENITOURINARY: Denies frequency, urgency, nocturia, hematuria or incontinence. Andrse in place PHYSICAL EXAM GENERAL APPEARANCE: Patient is alert, oriented, resting comfortably in his bed, with drips in place. NECK: Supple. No JVD. CHEST: Normal chest expansion. Telemetry in place. LUNGS: Absence of any rales, rhonchi or any wheezing. Chest tube in place. CARDIOVASCULAR: Regular. S1 and S2 normal. No appreciable rubs, murmurs or gallops. ABDOMEN: Soft, nontender, and nondistended. There is no rebound, voluntary guarding, or rigidity. : Deferred. No Andres. EXTREMITIES: Diminished pulse in the left lower extremity, cold to touch, swollen, mottled and cyanotic appearance in all the toes, Improving now Pulses present per Doppler. SKIN: No skin breakdown. Vital Signs (last 8hr) Date Time Temp Pulse Resp B/P (MAP) Pulse Ox O2 Delivery O2 Flow Rate FiO2 01/05/25 16:30 86 14 147/103 (118) 97 8/28/25 16:15 86 17 143/85 (104) 97 01/05/25 16:00 86 16 145/84 (104) 96 01/05/25 16:00 97.9 01/05/25 16:00 97 Room Air* 0 21 01/05/25 15:45 87 20 141/82 (101) 96 01/05/25 15:30 86 17 138/81 (100) 98 01/05/25 15:15 88 19 123/73 (90) 98 01/05/25 15:00 91 20 132/74 (93) 95 01/05/25 14:45 90 18 139/80 (99) 96 01/05/25 14:30 91 20 128/72 (90) 98 01/05/25 14:15 90 19 137/76 (96) 96 01/05/25 14:00 89 18 128/70 (89) 96 01/05/25 13:45 91 19 147/78 (101) 96 01/05/25 13:30 91 17 132/73 (92) 96 01/05/25 13:15 92 20 125/71 (89) 98 01/05/25 13:00 89 20 109/63 (78) 95 01/05/25 12:45 91 19 126/73 (90) 96 01/05/25 12:30 87 17 132/68 (89) 97 01/05/25 12:15 92 16 136/62 (86) 97 01/05/25 12:00 97 Room Air* 0 21 01/05/25 12:00 99.3 01/05/25 12:00 87 19 130/58 (82) 95 01/05/25 11:45 89 17 141/55 (83) 97 01/05/25 11:32 88 20 01/05/25 11:31 88 20 N/A Room Air 21 01/05/25 11:30 92 20 115/64 (81) 95 01/05/25 11:15 88 17 148/86 (106) 99 01/05/25 11:00 89 20 154/80 (104) 98 01/05/25 10:45 91 19 154/80 (104) 98 01/05/25 10:30 94 17 147/79 (101) 97 01/05/25 10:15 95 18 143/71 (95) 95 LABS: Laboratory: Test 01/05/25 16:10 01/05/25 15:50 01/05/25 03:20 01/04/25 09:55 Range/Units Urine Color COLORLESS YELLOW Urine Appearance CLEAR CLEAR Urine pH 7.0 5.0-8.0 Urine Specific [place] 1.011 1.001-1.031 Urine Protein 30 H NEGATIVE mg/dL Urine Glucose (UA) NEGATIVE NEGATIVE mg/dL Urine Ketones NEGATIVE NEGATIVE mg/dL Urine Occult Blood MODERATE H NEGATIVE Urine Nitrate NEGATIVE NEGATIVE Urine Bilirubin NEGATIVE NEGATIVE mg/dL Urine Urobilinogen 0.2 0.2-1.0 mg/dL Urine Leukocyte Esterase NEGATIVE NEGATIVE Jorge/uL Urine RBC 0-1 0-1 /HPF Urine WBC 2-5 H 0-1 /HPF Urine Bacteria None None Seen /HPF Urine Random Creatinine 37.80 30-135 mg/dL Urine Random Sodium 112 40-220 mmol/l Urine Random Potassium 14 L 25-125 mmol/L Urine Random Chloride 92 L 110-250 mmol/L Activated Partial Thromboplast Time 51.1 H 26.3-35.5 SEC White Blood Count 10.2 4.8-10.8 K/uL Red Blood Count 4.14 L 4.50-6.20 MIL/uL Hemoglobin 10.6 L 14.0-18.0 g/dL Hematocrit 33.0 L 42-54 % Mean Corpuscular Volume 79.7 79-99 fL Mean Corpuscular Hemoglobin 25.6 L 27.0-33.0 pg Mean Corpuscular Hemoglobin Concent 32.1 32.0-36.0 g/dL Red Cell Distribution Width 24.0 H 11.0-15.5 % Platelet Count 181 130-400 K/uL Mean Platelet Volume 7.5-10.5 fL Immature Granulocyte % (Auto) 2.1 H 0-1 % Neutrophils (%) (Auto) 72.4 40.0-77.0 % Lymphocytes (%) (Auto) 15.9 L 21.0-51.0 % Monocytes (%) (Auto) 7.6 3.0-13.0 % Eosinophils (%) (Auto) 1.7 0.0-8.0 % Basophils (%) (Auto) 0.3 0.0-5.0 % Neutrophils # (Auto) 7.4 1.8-7.7 K/uL Lymphocytes # (Auto) 1.6 1.0-4.8 K/uL Monocytes # (Auto) 0.8 0.1-1.0 K/uL Eosinophils # (Auto) 0.17 0.00-0.70 K/uL Basophils # (Auto) 0.03 0.00-0.20 K/uL Absolute Immature Granulocyte (auto 0.22 0-1 K/uL Nucleated Red Blood Cells 4.0 H 0.0-0.19 % Sodium Level 140 136-145 mmol/L Potassium Level 3.2 L 3.5-5.1 mmol/L Chloride Level 98 L 101-111 mmol/L Carbon Dioxide Level 26 21-32 mmol/L Blood Urea Nitrogen 90 *H 7-18 mg/dL Creatinine 8.2 *H 0.5-1.3 mg/dL Glomerular Filtration Rate Calc 7 >90 mL/min Random Glucose 97 70-105 mg/dL Total Calcium 8.1 L 8.5-10.1 mg/dL Magnesium Level 2.20 1.80-2.40 mg/dL Test 01/04/25 04:38 Range/Units Segmented Neutrophils % 80 H 40-70 % Lymphocytes % (Manual) 11 L 22-44 % Monocytes % (Manual) 8 2-9 % Eosinophils % (Manual) 1 1-6 % Differential Comment MANUAL DIF White Cell Morphology Comment Platelet Morphology Comment ADEQUATE Red Blood Cell Morphology HYPOCHROM CELLS 1+ Phosphorus Level 7.1 H 2.5-4.9 mg/dL Current Medications Medications (Trade) Dose Ordered Sig/Mila Route PRN Reason Start Time Stop Time Status Last Admin Dose Admin Acetaminophen (TYLenol 325MG TAB) 650 mg Q4H PRN PO Temp >38.3C(AFTER EXTUBATION) 12/28/24 14:00 01/27/25 13:59 Acetaminophen (TYLenol 325MG TAB) 650 mg Q6H PRN PO MILD PAIN (1-3) 12/24/24 01:30 12/28/24 13:57 DC 12/27/24 23:45 650 MG Acetaminophen (TYLenol 325MG TAB) 650 mg Q6H PRN PO TEMPERATURE GREATER THAN 101.5 12/24/24 03:00 12/28/24 14:10 DC Acetaminophen (TYLenol 325MG TAB) 650 mg Q6H PRN PO MILD PAIN (1-3) 12/28/24 14:00 01/27/25 13:59 01/03/25 20:09 650 MG Acetaminophen (TYLenol 650MG SUPPOSITORY) 650 mg Q4H PRN RC Temp >38.3C WHILE INTUBATED 12/28/24 14:00 01/27/25 13:59 Acetaminophen (acetaMINOPHEN) 1,000 mg Q6H6 IV 12/28/24 18:00 12/29/24 17:59 DC 12/29/24 17:27 1,000 MG Acetaminophen (acetaMINOPHEN) 1,000 mg Q6H6 IVPB 12/30/24 00:00 12/31/24 20:14 DC 12/30/24 18:16 1,000 MG Albumin Human 250 ml @ 0 mls/hr AD PRN IV IF HEMODYNAMICALLY UNSTABLE 12/28/24 14:00 12/29/24 09:28 DC 12/29/24 09:28 250 MLS/HR Albuterol (DUOneb) 1 UDVIAL [id number] IH 01/01/25 18:00 01/01/25 15:25 DC Albuterol Sulfate (Proventil 0.083% 2.5mg/3ml) 2.5 mg ONCE STAT IH 12/30/24 10:22 12/30/24 10:32 DC 12/30/24 10:43 2.5 MG Aminocaproic Acid 16834 mg/Sodium Chloride 310 ml @ 25 mls/hr AD IV 12/28/24 14:00 12/28/24 14:14 DC Aminocaproic Acid 27723 mg/Sodium Chloride 480 ml @ 0 mls/hr AD PRN IV BLEEDING CONTROL 12/27/24 11:00 01/26/25 10:59 Amiodarone HCl (pacERONE 200MG) 200 mg DAILY PO 01/05/25 09:00 02/04/25 08:59 01/05/25 09:42 200 MG Amiodarone HCl 150 mg/Dextrose 103 ml @ 618 mls/hr ONCE IV 01/04/25 06:30 01/04/25 06:21 DC Amiodarone HCl 360 mg/Dextrose 207.2 ml @ 33.3 mls/hr AD IV 01/04/25 06:30 01/04/25 06:21 DC Amiodarone HCl 540 mg/Dextrose 310.8 ml @ 16.7 mls/hr [id number] IV 01/04/25 06:30 02/03/25 06:29 01/04/25 13:01 16.7 MLS/HR Argatroban 250 mg/ Sodium Chloride 250 ml @ 0 mls/hr PROTOCOL IV 12/31/24 16:30 01/30/25 16:29 12/31/24 22:32 2.61 MLS/HR Aspirin (Aspirin 81mg Ec Tab) 81 mg DAILY PO 12/24/24 09:00 01/23/25 08:59 01/05/25 09:42 81 MG Atorvastatin Calcium (LIPItor 40MG) 40 mg HS PO 12/24/24 21:00 01/01/25 11:16 DC 12/31/24 20:44 40 MG Benzocaine (Cepacol Sore Throat Lozenge) 1 each Q4H PRN MM SORE THROAT 01/03/25 13:30 02/02/25 13:29 01/04/25 20:43 1 EACH Bisacodyl (DulcoLAX) 10 mg DAILY PRN RC CONSTIPATION - MOM INEFFECTIVE 12/29/24 14:00 01/28/25 13:59 12/30/24 11:05 10 MG Calcium Gluconate 1 gm/Sodium Chloride 60 ml @ 200 mls/hr AD PRN IV HYPOCALCEMIA 12/28/24 14:00 01/27/25 13:59 01/01/25 01:52 200 MLS/HR Cefazolin Sodium (ANCEF 1 gm vial) 2 gm ONCALL IVP 12/26/24 16:30 12/26/24 16:28 DC Cefazolin Sodium (Ancef) 2 gm ONCALL PRN IVP SURGERY 12/26/24 16:30 12/28/24 13:57 DC Cefazolin Sodium (Ancef) 2 gm Q8H IVPB 12/28/24 19:00 12/29/24 11:01 DC 12/29/24 11:04 2 GM Dexmedetomidine/ Sodium Chloride (PRECEdex 400MCG/ 100ML-NS) 400 mcg PROTOCOL IV 12/28/24 14:00 12/29/24 13:59 DC 12/29/24 12:16 400 MCG Dexmedetomidine/ Sodium Chloride (PRECEdex 400MCG/ 100ML-NS) 400 mcg PROTOCOL IV 12/29/24 18:00 01/28/25 17:59 12/31/24 06:05 400 MCG Dextrose (D50w) 50 ml AD PRN IV HYPOGLYCEMIA PROTOCOL 12/28/24 14:00 01/27/25 13:59 Dextrose (D50w) 50 ml ONCE STAT IV 12/30/24 11:36 12/30/24 11:39 DC 12/30/24 11:45 50 ML Dextrose/Sodium Chloride 1,000 ml @ 50 mls/hr Q20H IV 12/30/24 11:30 01/01/25 16:17 DC 01/01/25 02:09 50 MLS/HR Dobutamine HCl/ Dextrose 250 ml @ 0 mls/hr PROTOCOL IV 12/29/24 14:00 01/28/25 13:59 01/05/25 08:48 4.1 MLS/HR Docusate Sodium (COLace 100MG CAP) 100 mg BID PO 12/28/24 21:00 12/29/24 08:01 DC 12/28/24 20:53 100 MG Docusate Sodium (COLace LIQUID 100MG/10ML) 100 mg BID PO 12/29/24 08:00 01/28/25 07:59 01/03/25 08:13 100 MG Enoxaparin Sodium (Lovenox) 30 mg DAILY SQ 12/31/24 09:00 12/31/24 16:12 DC Epinephrine HCl 10 mg/Sodium Chloride 250 ml @ 0 mls/hr AD PRN IV TITRATE 12/27/24 11:00 01/26/25 10:59 12/30/24 04:29 0 MLS/HR Epinephrine HCl 10 mg/Sodium Chloride 250 ml @ 0 mls/hr AD PRN IV POST-OP CARDIOVASCULAR ORDERS 12/28/24 14:00 12/28/24 14:14 DC Famotidine (Pepcid 20mg Vial) 20 mg BID IV 12/28/24 21:00 12/31/24 20:20 DC 12/31/24 08:51 20 MG Famotidine (Pepcid 20mg Vial) 20 mg Q48H IV 01/02/25 09:00 01/02/25 04:51 DC Famotidine (Pepcid 20mg Tab) 20 mg DAILY PO 12/24/24 09:00 12/28/24 13:54 DC 12/26/24 10:19 20 MG Furosemide (LASix 20MG TAB) 20 mg Q12H PO 12/30/24 09:00 12/30/24 08:34 DC Furosemide (LASix 20MG VIAL) 20 mg Q12H IV 12/29/24 09:00 12/30/24 08:34 DC 12/29/24 09:20 20 MG Furosemide 100 mg/ Sodium Chloride 100 ml @ 0 mls/hr PROTOCOL IV 12/29/24 14:30 01/28/25 14:29 01/03/25 16:54 2.5 MLS/HR Glucagon (Glucagon 1mg Kit) 1 mg AD PRN IM HYPOGLYCEMIA PROTOCOL 12/28/24 14:00 01/27/25 13:59 Guaifenesin/ Dextromethorphan (RobiTUSSin DM 200/20MG 10ML) 10 ml Q4H PRN PO COUGH 01/03/25 16:30 02/02/25 16:29 01/04/25 15:44 10 ML Heparin Sodium (Porcine) (HEParin 5,000 UNIT VIAL) *calculation based on ACTUAL B... AD PRN IV HEPARIN PROTOCOL 12/24/24 02:30 12/28/24 13:54 DC 12/24/24 17:32 5,000 UNIT Heparin Sodium/ Dextrose 250 ml @ 0 mls/hr Q6H IV 12/24/24 02:30 12/28/24 13:54 DC 12/27/24 17:04 11.3 MLS/HR Hydralazine HCl (APRESOLine 20MG INJ) 10 mg Q6H PRN IV For:SBP above 160;DBP above 90 12/24/24 03:00 12/28/24 13:54 DC Insulin Human Regular (humuLIN R 100 UNIT/ML 3ML) 10 unit ONCE STAT IV 12/30/24 11:42 12/30/24 11:45 DC 12/30/24 12:01 10 UNIT Insulin Human Regular (humuLIN R 100 UNIT/ML 3ML) 10 unit ONCE STAT SQ 12/30/24 11:36 12/30/24 11:43 DC Insulin Human Regular 100 unit/ Sodium Chloride 100 ml @ 0 mls/hr AD IV 12/28/24 14:00 12/29/24 17:55 DC 12/28/24 17:09 5 MLS/HR Ipratropium [place] (AtrovENT UD) 0.5 mg [id number] IH 12/30/24 12:00 01/29/25 11:59 01/05/25 11:31 0.5 MG Lactulose (Constulose 20gm/ 30ml Udcup) 20 gm BID PRN PO CONSTIPATION 12/24/24 03:00 12/28/24 13:54 DC 12/26/24 21:30 20 GM Lactulose (Constulose 20gm/ 30ml Udcup) 20 gm BID PRN PO CONSTIPATION 12/28/24 14:00 01/27/25 13:59 12/30/24 07:50 20 GM Lidocaine HCl/ Dextrose 250 ml @ 0 mls/hr AD PRN IV TITRATE 12/28/24 22:30 12/29/24 16:00 DC 12/29/24 06:53 15 MLS/HR Magnesium Hydroxide (Milk Of Magnesium 30ml) 30 ml DAILY PRN PO CONSTIPATION 12/28/24 14:00 01/27/25 13:59 12/30/24 10:18 30 ML Magnesium Sulfate 50 ml @ 12.5 mls/hr AD PRN IV MAG LEVEL LESS THAN 2.0 12/28/24 14:00 01/27/25 13:59 12/28/24 18:42 12.5 MLS/HR Magnesium Sulfate 50 ml @ 0 mls/hr PROTOCOL PRN IV MAGNESIUM PROTOCOL 12/26/24 15:00 12/28/24 14:10 DC Metolazone (zarOXOlyn) 5 mg ONCE PO 12/31/24 12:00 12/31/24 20:18 DC 12/31/24 12:01 5 MG Metolazone (zarOXOlyn) 5 mg ONCE PO 01/01/25 16:30 01/02/25 16:29 DC 01/01/25 16:53 5 MG Metoprolol Tartrate (loprESSOR) 12.5 mg BID PO 12/30/24 09:00 01/04/25 08:51 DC 01/03/25 20:09 12.5 MG Metoprolol Tartrate (loprESSOR) 25 mg BID PO 12/25/24 21:00 12/28/24 13:54 DC 12/28/24 09:28 25 MG Metoprolol Tartrate (loprESSOR) 25 mg TID PO 01/04/25 09:00 02/03/25 08:59 01/05/25 14:42 25 MG Morphine Sulfate (morPHINE 2MG SYG) 0.5 mg Q2H PRN IV MODERATE PAIN (4-6) 12/28/24 14:00 12/29/24 13:59 DC Morphine Sulfate (morPHINE 2MG SYG) 1 mg Q2H PRN IV SEVERE PAIN (7-10) 12/28/24 14:00 12/29/24 13:59 DC 12/28/24 17:05 1 MG Morphine Sulfate (morPHINE 2MG SYG) 2 mg Q4H PRN IVP SEVERE PAIN (7-10) 12/24/24 03:00 12/28/24 13:54 DC 12/26/24 02:43 2 MG Nitroglycerin (Nitroglycerin 1gm Oint) 0.5 inch Q8H5 TD 12/24/24 01:30 12/28/24 13:54 DC 12/27/24 12:57 0.5 INCH Nitroglycerin (Nitroglycerin 1gm Oint) 1 inch Q8H TD 01/04/25 15:00 02/03/25 14:59 01/05/25 14:42 1 INCH Nitroglycerin/ Dextrose 0 ml @ 0 mls/hr AD IV 12/28/24 14:00 12/31/24 14:00 DC Nitroglycerin/ Dextrose 0 ml @ 0 mls/hr AD PRN IV TITRATE 01/01/25 06:30 01/31/25 06:29 01/05/25 08:40 0 MLS/HR Norepinephrine Bitartrate 250 ml @ 0 mls/hr AD PRN IV TITRATE 12/27/24 11:00 01/26/25 10:59 01/04/25 06:14 0 MLS/HR Norepinephrine Bitartrate 8 mg/ Dextrose 250 ml @ 0 mls/hr AD PRN IV POST-OP CARDIOVASCULAR ORDERS 12/28/24 14:00 12/28/24 14:14 DC Ondansetron HCl (zoFRAN 4MG INJ) 4 mg Q6H PRN IV NAUSEA/VOMITING 12/24/24 03:00 12/28/24 13:54 DC Ondansetron HCl (zoFRAN 4MG INJ) 4 mg Q6H PRN IV NAUSEA/VOMITING 12/28/24 14:00 01/27/25 13:59 12/30/24 11:01 4 MG Pantoprazole Sodium (PROTonix 40MG INJ) 40 mg BID IVP 01/05/25 09:00 02/04/25 08:59 01/05/25 09:43 40 MG Pantoprazole Sodium (PROTonix 40MG INJ) 40 mg Q12H IVP 01/02/25 05:00 01/05/25 04:04 DC 01/04/25 16:00 40 MG Piperacillin Sod/ Tazobactam Sod (Zosyn 3.375gm+NS 50ml) 3.375 gm Q12H IV 12/30/24 15:30 01/05/25 04:05 DC 01/04/25 14:38 3.375 GM Piperacillin Sod/ Tazobactam Sod (Zosyn 3.375gm+NS 50ml) 3.375 gm Q12H IV 01/05/25 09:00 01/09/25 08:59 01/05/25 09:39 3.375 GM Potassium Phosphate 250 ml @ 42 mls/hr AD PRN IV LOW PHOS LEVEL 12/28/24 14:00 01/27/25 13:59 12/29/24 06:12 42 MLS/HR Potassium Chloride 100 ml @ 100 mls/hr AD PRN IV POTASSIUM PROTOCOL 12/26/24 15:00 12/28/24 13:54 DC Potassium Chloride 100 ml @ 100 mls/hr AD PRN IV HYPOKALEMIA 12/28/24 14:00 01/27/25 13:59 01/05/25 16:19 100 MLS/HR Potassium Chloride (K-Dur/Klor-Con 20meq) 20 meq AD PRN PO POTASSIUM PROTOCOL 12/26/24 15:00 12/28/24 13:54 DC 12/26/24 18:27 20 MEQ Potassium Chloride (KCl 10% Elixir 20meq/15ml) 20 meq AD PRN PO POTASSIUM PROTOCOL 12/26/24 15:00 12/28/24 13:54 DC Propofol 100 ml @ 0 mls/hr AD PRN IV SEDATION 12/28/24 14:00 01/01/25 13:59 DC Sodium Polystyrene Sulfonate (kayEXALate 15 GM/60 ML) 30 gm ONCE STAT PO 12/30/24 11:36 12/30/24 11:39 DC 12/30/24 11:45 30 GM Sodium Bicarbonate (Sodium Bicarb 50meq 50ml Vial) 50 meq AD PRN IV OTHER[SEE DOSING INSTRUCTIONS] 12/28/24 14:00 12/31/24 14:00 DC 12/30/24 12:45 100 MEQ Sodium Chloride 500 ml @ 0 mls/hr AD IV 12/28/24 14:00 01/27/25 13:59 Sodium Chloride 1,000 ml @ 10 mls/hr ONCE IV 12/28/24 14:00 12/29/24 13:59 DC 12/28/24 17:06 10 MLS/HR Sodium Chloride (NS Flush 10ml) 10 ml Q8H PRN IVP IV LINE FLUSH 12/28/24 14:00 01/27/25 13:59 Sodium Chloride (Sodium Chloride 3% Inh) 4 ML [id number] IH 01/04/25 12:00 02/03/25 11:59 01/05/25 11:31 4 ML Tramadol HCl (UltRAM) 25 mg Q6H PRN PO MODERATE PAIN (4-6) 12/28/24 14:00 12/29/24 13:56 DC 12/29/24 11:05 25 MG Tramadol HCl (UltRAM) 50 mg Q6H PRN PO SEVERE PAIN (7-10) 12/28/24 14:00 12/29/24 13:56 DC Vasopressin 20 units/Sodium Chloride 100 ml @ 0 mls/hr PROTOCOL IV 12/30/24 15:30 01/29/25 15:29 12/31/24 10:40 6 MLS/HR DIAGNOSTICS / RADIOLOGY: [ ] PATIENT: ZHEN IVEY MR#: [id number] : 1970 SEX: M AGE: 54 LOCATION: 2CH ORDER 2300 STATUS: ADM IN REPORT#: [id number] SERVICE 0600 REASON: POST CABG ORDERING PHYSICIAN: KATHRIN PONCE MD PROCEDURE: CXR1VW - CHEST 1VW CHEST 1VW REASON: POST CABG COMPARISON: Prior study from 01/04/2025 is available. FINDINGS: Single view of the chest was obtained. Lungs are clear. There is mild cardiomegaly with median sternotomy with cardiac revascularization procedure. There is a right-sided chest tube in place. There is a right internal jugular vascular sheath in place.. . There is no pulmonary vascular congestion. Mediastinum and bony thorax appear unremarkable. IMPRESSION: 1. Mild cardiomegaly with median sternotomy 2. Support lines satisfactory position 3. No evidence of airspace consolidation or pulmonary venous congestion.. DICTATED BY: FRED NUNES MD DATE: 01/05/251400 ELECTRONICALLY SIGNED BY: FRED NUNES MD DATE: 01/05/251404 ASSESSMENT: 1. Non-STEMI. 2. Multi-vessel coronary artery disease status post CABG 12/28/2024 3. 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 HFrEF LV ejection fraction 25-30% by echo on 01/01/2025 5. Mild ischemic cardiomyopathy with LVEF 45-50 by left heart catheterization. 6. Hypertension. 7. Anemia. PLAN: ACS NSTEMI due to Multi vessel CAD, s/p CABG Day 5 * Continue aspirin, atorvastatin * Continue argatroban and wean nitroglycerin GTT as per cardiology recommendation * Plan to start Clopidogrel on discharge, as per Cardiology consult * Encouraged to cough to clear the secretions and use p.r.n. 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, S/P LLE femoral thrombectomy * Patient has demarcating necrosis of the left toes and midfoot * Patient underwent left lower extremity femoral thrombectomy on 01/01, after finding monophasic waveforms be on popliteal artery by arterial Doppler * Continue atorvastatin and aspirin * Continue nitroglycerin paste as per financial quantitative analyst * Resume clopidogrel as DAPT prior to discharge * Monitor leg perfusion, pulses, swelling, and discoloration Anemia, post CABG * Patient received 4 units of packed RBCs * Patient hemoglobin is 10.6 today * Iron panel showed Iron 20, % Sat 5.5, TIBC 360 indicating Iron deficiency * Monitor CBC daily in the a.m. daily * Monitor for signs of bleeding Acute on chronic renal dysfunction * Patient BUN is 90 and creatinine 8.2, (16 and 0.9 POA) * Patient urine output is currently 2.5L * Nephrology recommended ordering urine electrolytes, urine creatinine random, urine osmolality and repeat urinalysis * Monitor CBC and electrolytes in the a.m. daily GI prophylaxis with Protonix 40 mg IV Continue DVT prophylaxis with SCDs ATTESTATION BY PHYSICIAN I have seen and examined the patient. I reviewed the documentation, medical decision making, and treatment plan as noted by the resident provider above. I agree with the findings and plan of care. Arnulfo Rios MD, HARSHAVARDHA MD Jan 05, 2025 18:30 THEODORA RICHARDS MD Jan 06, 2025 09:13
--- NOTE | 2025-01-05 20:34 | PN ---
SUBJECTIVE: The patient is doing poorly. This patient has renal failure, which is worsening. The patient has coronary artery disease and CABG. The patient also has atrial fibrillation episode. The patient has been on diuretics as per surgical team. His urine output though has been maintained, but creatinine has been getting worse. He has minimal edema. The patient denies any shortness of breath. The patient has no other associated findings. REVIEW OF SYSTEMS: CONSTITUTIONAL: With no fevers, chills or rigors. HEENT: With no headache. No oral ulcer, sore throat or difficulty swallowing. RESPIRATORY: With no cough expectoration, hemoptysis or pleuritic pain. CARDIOVASCULAR: Has shortness of breath, minimal. No orthopnea or PND. GASTROINTESTINAL: Negative for nausea, vomiting, diarrhea. GENITOURINARY: Negative for dysuria and hematuria. DERMATOLOGICAL: No rashes, pruritus or skin lesion. ENDOCRINE: No polyuria, polydipsia or polyphagia. PSYCHIATRIC: Negative. NEUROLOGIC: No seizure or syncope. PHYSICAL EXAMINATION: GENERAL: Laying in bed. VITAL SIGNS: Blood pressure is 147/100, pulse is 86, respiratory rate is 14, afebrile. HEENT: Head is atraumatic, normocephalic. Pupils are round and reactive. Sclerae are anicteric. Conjunctivae not pale. Oral mucosa is not dry. NECK: Supple. No masses or bruits. Thyroid is palpable. Neck has no bruit. CHEST: Shows equal thoracic percussion note being resonant in all areas. CARDIAC: Regular rhythm. No rub, no S3, S4. No parasternal heave. ABDOMEN: No guarding or tenderness. Bowel sounds present. No free fluid. BACK: No tenderness, no back deformities. LABORATORY DATA: We have reviewed available labs in detail. Lab data has shown hemoglobin is low up to 10.6, white cell count 10.2. Old records reviewed. BUN of 90, worsening, creatinine of 8.2. Low potassium. IMAGING STUDIES: Imaging studies are personally reviewed. Abdominal ultrasound was reviewed. Echocardiogram, x-ray chest was reviewed. Ultrasound was reviewed. PROBLEMS: * Acute renal failure. * Multiple electrolyte problems. * CABG. * Underlying anemia. * Multiple other comorbidities including coronary artery disease, CABG, previous [place], hypertension, anemia RECOMMENDATIONS: * This patient will have urinalysis. * Urine electrolytes. * Abdominal ultrasound done. Kidney size is adequate. * Continued followup on renal function. Diuretics to be optimized to avoid hypotension and fluid depletion. Meanwhile, the patient has left foot ischemia and will need followup by the Vascular surgeon. The patient at this time has no need for urgent dialysis and he is nonoliguric. We will continue to monitor without dialysis. Intake, output, weight, electrolyte, renal function, overall status will be monitored. Nonsteroidal drugs will be avoided. Doses of medicine to be adjusted and continued followup. Please avoid contrast and nonsteroidal drugs. I have discussed with other team physicians. We have reviewed the labs, x-rays and imaging studies personally. Old records and previous records have been reviewed in detail and we will continue to follow. Followup labs have been ordered including CBC and a CMP. Gentle replacement of potassium has been ordered. Magnesium level should be checked and follow up closely. Condition is critical in ICU. TID: [id number] RECEIPT: [id number]
[2025-01-06] VITALS (61 sets, daily range): BP systolic 104–174; BP diastolic 63–106; PULSE 81–105; RESP 11–53; TEMP 97.8–98.9; O2SAT 97–100
--- NOTE | 2025-01-06 | HMCIMG ---
EXAMINATION: DUPLEX ULTRASOUND EXAMINATION OF THE LEFT LOWER EXTREMITY ARTERIES. CLINICAL HISTORY: Pain. COMPARISON: Bilateral lower extremity arterial doppler dated 12/31/2024. FINDINGS: Peak systolic velocities within the left lower arteries are as follows: Common femoral artery: 217 cm/s. Superficial femoral artery: 45 cm/s at proximal, 47 cm/s at mid, and 45 cm/s at distal segments. Popliteal artery: 49 cm/s at proximal and 41 cm/s at distal segments. Posterior tibial artery: 38 cm/s. Anterior tibial artery: 28 cm/s. Dorsalis pedis artery: 55 cm/s. The left lower limb arteries demonstrate triphasic to biphasic waveforms in all arteries. There is intimal wall thickening and multilevel atherosclerosis in the left lower limb arteries. There is a hematoma that measures 2.6 x 2.7 cm adjacent to the left common femoral artery. IMPRESSION: Elevated velocity left inflow with drop in flow velocities suggesting mild to moderate inflow stenosis. Subcutaneous hematoma adjacent to the left common femoral artery. /Caterina
[2025-01-06 04:41] LABS: IMMATURE GRANULOCYTE ABSOLUTE 0.16 K/uL (0-1); NUCLEATED RED BLOOD CELLS 3.0 % (0.0-0.19); PLATELET COUNT (AUTO) 221 K/uL (130-400); RED BLOOD CELL COUNT(AUTO) 4.19 MIL/uL (4.50-6.20); RED CELL DISTRIBUTION WIDTH 25.2 % (11.0-15.5); WHITE BLOOD COUNT (AUTO) 9.8 K/uL (4.8-10.8)
[2025-01-06 05:06] LABS: GLOMERULAR FILTR. RATE CALC 7.0 mL/min (>90); GLUCOSE,RANDOM 96.0 mg/dL (70-105); PHOSPHORUS 7.1 mg/dL (2.5-4.9); SODIUM SERUM 140.0 mmol/L (136-145)
[2025-01-06 05:47] LABS: CREATININE 8.3 mg/dL (0.5-1.3); UREA NITROGEN, BLOOD 97.0 mg/dL (7-18)
--- NOTE | 2025-01-06 06:38 | PN ---
SUBJECTIVE: The patient is a very pleasant 54-year-old diabetic male seen date of service 01/06/2025. Afebrile, 98.2; pulse 88; respirations 33; blood pressure 172/105. The patient is status post coronary artery bypass grafting x 4, 12/28/2024. The patient is status post removal of an intraaortic balloon pump with thrombectomy and fasciotomy, 12/31/2024. The patient is being followed by the nephrology service for acute renal failure. Continues to have worsening renal function, currently BUN of 90, creatinine of 8.2. The patient is being followed by Nephrology for acute renal failure, multiple electrolyte problems, underlying anemia. Plan per Nephrology is to continue to monitor the patient without dialysis, replace electrolytes as needed. I have been following the patient for ischemic-appearing changes to his forefoot and midfoot on the left in the presence of strongly palpable pulses on the right and strongly dopplerable pulses on the left. OBJECTIVE: EXTREMITIES: His examination today shows he has palpable pedal pulses on the right. His foot is cool. He has pulses on the left that are audible by Doppler signal. He has decreased edema to the left foot. He has demarcating necrosis to the distal tips of the digits 1 through 4 on the left. He has ruborous and violaceous discoloration and resolving bulla to the dorsal forefoot in an area that extends 11 cm proximally from the digits and an area plantarly that extends 13 cm distally from the digits. The left foot is cool to the touch. No evidence of any abscess or cellulitis. ASSESSMENT: A 54-year-old male receiving argatroban since 12/31, status post CABG, status post left lower extremity thrombectomy and removal of an aortic balloon pump. The patient with acute renal failure, new-onset atrial fibrillation, 1-hour duration 01/04. The patient with demarcating necrosis to the digits on the left in the presence of pulses that are dopplerable on the left. The patient with resolving large bulla to the dorsal and plantar aspect of the left foot. The patient is receiving IV Zosyn. PLAN: Renal failure to be monitored by the nephrology service. The patient continues to be receiving the anticoagulation therapy with argatroban. The patient's ruborous and violaceous discoloration and the bullous lesions to the forefoot plantarly and dorsally are resolving; however, he continues to have demarcating necrosis to the distal aspects of digits 1, 2, 3, and 4 on that left side. We will continue to monitor this closely. If the patient is cleared by other services for ambulation, I would recommend a dry dressing with gauze and 4 x 4's to the foot and ABD pads to the incision sites from the vein harvest to the ankle and leg area and have physical therapy carefully fit his CAM walking boot, so as not to irritate the surgical incisions to the leg and ankle on that left side. We will continue to follow the patient closely while in-house. TID: [id number] RECEIPT: [id number]
[2025-01-06] MEDS: PHENOL 177 ML BOTTLE PO PRN (11:20)
--- NOTE | 2025-01-06 13:07 | PN ---
[facility] CARDIOLOGY PROGRESS NOTE Date Patient Seen: Jan 06, 2025 Time of Visit: 13:06 Problem List: ACSNSTEMI MVCAD LLE ALI status post thrombectomy and removal of IABP 12/31 Acute renal failure New onset atrial fibrillation, 1 hour duration (01/04) Interval History: s/p CABG s/p LLE femoral thrombectomy Argatroban since 12/31 - Patient with continued wet cough today Physical Examination: GENERAL: [No acute distress.] NECK: R CVC LUNGS: [ diminished inspiratory effort. No wheezes, or rhonchi.] HEART: [Normal rate and rhythm. Normal S1 and S2 without murmurs, gallop or rub.] VASC: [Peripheral pulses +1 bilaterally. blistering to distal left foot with ecchymoses to distal digits] ABD: soft, nontender SKIN: [ecchymoses, blistering to LLE distal digits. sensation and motor intact NEURO: [Awake, alert , moves all extremities.] Laboratory: [ ] Hematology Labs: Test 01/06/25 03:47 Range/Units White Blood Count 9.8 4.8-10.8 K/uL Red Blood Count 4.19 L 4.50-6.20 MIL/uL Hemoglobin 10.8 L 14.0-18.0 g/dL Hematocrit 34.3 L 42-54 % Mean Corpuscular Volume 81.9 79-99 fL Mean Corpuscular Hemoglobin 25.8 L 27.0-33.0 pg Mean Corpuscular Hemoglobin Concent 31.5 L 32.0-36.0 g/dL Red Cell Distribution Width 25.2 H 11.0-15.5 % Platelet Count 221 130-400 K/uL Mean Platelet Volume 7.5-10.5 fL Immature Granulocyte % (Auto) 1.6 H 0-1 % Neutrophils (%) (Auto) 71.2 40.0-77.0 % Lymphocytes (%) (Auto) 16.4 L 21.0-51.0 % Monocytes (%) (Auto) 7.3 3.0-13.0 % Eosinophils (%) (Auto) 3.2 0.0-8.0 % Basophils (%) (Auto) 0.3 0.0-5.0 % Neutrophils # (Auto) 7.0 1.8-7.7 K/uL Lymphocytes # (Auto) 1.6 1.0-4.8 K/uL Monocytes # (Auto) 0.7 0.1-1.0 K/uL Eosinophils # (Auto) 0.31 0.00-0.70 K/uL Basophils # (Auto) 0.03 0.00-0.20 K/uL Absolute Immature Granulocyte (auto 0.16 0-1 K/uL Nucleated Red Blood Cells 3.0 H 0.0-0.19 % Chemistry Labs: Test 01/06/25 03:47 Range/Units Sodium Level 140 136-145 mmol/L Potassium Level 3.3 L 3.5-5.1 mmol/L Chloride Level 99 L 101-111 mmol/L Carbon Dioxide Level 25 21-32 mmol/L Blood Urea Nitrogen 97 *H 7-18 mg/dL Creatinine 8.3 *H 0.5-1.3 mg/dL Glomerular Filtration Rate Calc 7 >90 mL/min Random Glucose 96 70-105 mg/dL Total Calcium 8.2 L 8.5-10.1 mg/dL Phosphorus Level 7.1 H 2.5-4.9 mg/dL Magnesium Level 2.20 1.80-2.40 mg/dL Coagulation Labs: Test 01/06/25 07:44 Range/Units Activated Partial Thromboplast Time 49.3 H 26.3-35.5 SEC Impression and Plan: ACS-NSTEMI MVCAD s/p CABG with VG-RCA, VG-OM, TORRES-LAD and VG-distal LAD LLE ALI while IABP in place, status post femoral thrombectomy, placed on argatroban. Arterial duplex shows multi/biphasic waveforms to LLE. Post operative hypotension New onset atrial fibrillation with rapid ventricular response, converted. hx Hypertension ICMP LVEF 45-50 Anemia, stable. Acute renal failure Continue asa, statin. Resume DAPT prior to discharge due to ACS-NSTEMI on pr esentation, however for recurrence of atrial fibrillation, will need to discuss candidacy for therapeutic anticoagulation CHF GDMT: Increase metoprolol further. Limited due to impaired renal function. Defer lasix gtt to nephrology and CTS. He may need HD. Encouraged use of IS Wean nitroglycerin gtt MACEY GALO DO Jan 06, 2025 13:06
--- NOTE | 2025-01-06 15:42 | PN ---
[facility] PROGRESS NOTE Date of Service: Jan 06, 2025 Time of Service: 15:41 SUBJECTIVE: This is a 54-year-old male who presented to [facility] with a non-STEMI. He underwent left heart catheterization which showed severe multi-vessel coronary artery disease with mid to apical inferior hypokinesis, LVEF 45-50%. He underwent echocardiogram 12/19/2024 which showed an ejection fraction of 55- 60%, mild LVH, normal-sized left atrium, mild mitral valve regurgitation and mild tricuspid valve regurgitation. He was transferred to [facility] for CABG. 12/25 patient remains admitted to the PCU, case discussed with the RN, no acute events overnight, he denied chest pain, shortness shortness for breath, no nausea, no vomiting, no abdominal discomfort. Cardiology input noted and appreciated, patient to continue aspirin 81 mg p.o. daily and atorvastatin 40 mg p.o. daily. Continue metoprolol tartrate 25 mg p.o. b.i.d.. Pending evaluation by CT surgery for consideration for CABG. Discussed with the patient. 12/26 patient remains admitted to the PCU, case discussed with the RN, no acute events overnight, the time of my visit the patient is comfortably in bed, alert oriented x3, eating breakfast, tolerating well, denies nausea, no vomiting, no abdominal discomfort, he denies chest pain, no shortness a breath. Remains on aspirin 81 mg p.o. daily, atorvastatin and metoprolol 25 mg p.o. b.i.d.. Pending evaluation by CT surgery for consideration of CABG. 12/27 patient is seen and examined at bedside, case discussed with the RN, no acute events overnight, currently the patient NPO, scheduled for CABG today by Cardiothoracic surgeon. We will continue to follow. 12/28 patient is seen and examined at bedside, case discussed with the RN, no acute events overnight, currently the patient NPO, scheduled for CABG today by Cardiothoracic surgeon. We will continue to follow. 12/29 patient is seen and examined at bedside, remains admitted to the ICU, postoperative day 1., status post CABG 12/28/2024, patient on insulin drip, nitroglycerin drip, alert oriented x3 following commands, however was mildly agitated earlier this morning, motion with the RN started on Precedex. Patient with chest tube in place. Further recommendations per Cardiothoracic surgeon. 12/30 patient remains admitted to the ICU, case discussed with the RN, patient remains confused, trying to pull his IV lines, remains on Precedex. Throughout the balloon pump in place, just to be breath, remains on epinephrine, Levophed, Lasix drip, dobutamine drip. Creatinine today at 3.0. Nephrology consultation requested, we will follow input and recommendation. Continue to monitor liver enzymes in a.m., follow ammonia level (at the time of my dictation less than 10). Continue to follow critical care input and recommendation. Prognosis remains guarded. 12/31 54-year-old male who was transferred from [facility] with a non- STEMI. He underwent left heart catheterization which showed severe multi-vessel coronary artery disease with mid to apical inferior hypokinesis, LVEF 45-50%. He underwent echocardiogram 12/19/2024 which showed an ejection fraction of 55- 60%, mild LVH, normal-sized left atrium, mild mitral valve regurgitation and mild tricuspid valve regurgitation. He was transferred to [facility] [place] CABG. Cardiothoracic surgeon consultation requested, patient underwent CABG 12/28/2024. Continue to follow Cardiothoracic input and recommendations. Patient has been mildly confused post procedure, started on Precedex. 01/01 54-year-old male who was transferred from [facility] with a non- STEMI. He underwent left heart catheterization which showed severe multi-vessel coronary artery disease with mid to apical inferior hypokinesis, LVEF 45-50%. He underwent echocardiogram 12/19/2024 which showed an ejection fraction of 55- 60%, mild LVH, normal-sized left atrium, mild mitral valve regurgitation and mild tricuspid valve regurgitation. He was transferred to [facility] [place] CABG. Cardiothoracic surgeon consultation requested, patient underwent CABG 12/28/2024. At the time of my visit resting comfortably in bed, off Precedex, following commands, status post interval removal of intra-aortic balloon pump yesterday, remains on dobutamine and nitroglycerin drip as well as argatroban. Continue to follow critical Care and Cardiothoracic input and recommendations. 01/02/25: Patient was evaluated at the bedside. Today is postop Day 5 and he is recovering well. Patient underwent thrombectomy in the femoral artery of left lower extremity and removal of intra-aortic balloon pump yesterday. Patient has mottled appearance in the left great toe and dorsalis pedis pulsations are present. His chest tube output was 320 mL over the last 24 hours. His stool was positive for occult blood and a GI consult has been placed. Cardiology advised to continue the current treatment. Patient is weaned off Levophed and is currently on Lasix, dobutamine, nitroglycerin, and argatroban drips. A swallow test will be performed today to evaluate the need for removing NG tube. 01/03/25: Patient was evaluated at the bedside, this is postop day 6 and is recovering well. Patient has mottled appearance in the left great toe extending into all the digits. Dorsalis pedis pulsations were diminished with palpation but detected on Doppler. His chest tube output was 310 mL today. A GI consult was placed for occult blood however no intervention was recommended and advised to continue Protonix 40 mg. Nephrology recommended no renal replacement as pat ient has good urine output,3 L today and is responding well to diuresis. Patient is continued on Lasix, dobutamine, nitroglycerin, and argatroban drips. NG tube was removed and patient was started on pureed heart healthy diet as tolerated. 01/04/2025: Patient was evaluated at the bedside, this is postop day 7. Patient had an episode of AFib with rapid ventricular response this morning and was cardioverted with amiodarone and continued on drip. Patient's left leg discoloration has improved, but still has diminished pulses only detected by Doppler. His chest tube output is 140 mL. Patient's ERICK has been worsening with creatinine 7.8 today however he has adequate urine output, 3.5 L today. Cardiology recommended to reduce Lasix drip to 2.5 and nephrology advised that patient's creatinine is stabilizing and renal function will improve in the next few days. Patient is still continuing on argatroban, nitro, and dobutamine drips. Otherwise patient has been recovering well tolerating pureed food and only complains of occasional throat pain due to cough. He was encouraged to cough to clear the chest secretions and use p.r.n. benzocaine spray for relief. His chest x-ray shows clearing pleural effusion and pulmonary edema. 01/05/2025: Patient was evaluated at the bedside and this is postop day. Patient has been in sinus rhythm since the AFib episode this morning. IV amiodarone was stopped and transitioned to p.o. 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 Vascular Tech recommended applying nitroglycerin paste and and covered it in dressing. Patient's ERICK continues to worsen, creatinine 8.2 today. However he is maintaining a good urine output, 2500 today. He has been weaning of Lasix drip. Patient has been encouraged to use incentive spirometry and cough as tolerated to clear the chest secretions. Chest x-ray showed no evidence of pulmonary venous congestion today. 01/06/2025: Patient was evaluated at the bedside, he was sitting comfortably in his chair. Patient has been in sinus rhythm. Patient continues on argatroban, Lasix, and dobutamine drips. Patient's ERICK seemed to be stabilizing his creat inine is 8.3 compared to 8.2 yesterday. Patient is maintaining good urine output, 2L in the last 24 hours. Patient's left foot was covered in dressing. Dr. Persaud evaluated the patient today and recommended walking boot with dressing if he is cleared by Cardiology for ambulation. His demarcating necrosis of the distal aspects of digits 1, 2, 3, and 4 on the left side seemed to be improving. Dr. Persaud recommended to continue nitroglycerin paste. Patient encouraged to use incentive spirometry and cough and was asked to use benzocaine for relief from throat pain. REVIEW OF SYSTEMS CONSTITUTIONAL: Denies fevers, chills, or night sweats. No unintentional weight loss reported. NEUROLOGICAL: Denies headache, amaurosis fugax, motor weakness, sensory deficit, vertigo/spinning sensation, gait abnormalities, or tremors. CARDIOVASCULAR: Denies any exertional angina, dyspnea on exertion, orthopnea, paroxysmal nocturnal dyspnea, palpitations, life-threatening arrhythmias, claudication. PULMONARY: Denies any shortness of breath, hemoptysis, pleuritic chest pain. Patient has cough with clear sputum post CABG GASTROINTESTINAL: Denies any type of dysphagia to either liquids or solids. Denies nausea, vomiting, pyrosis, early satiety, abdominal pain, diarrhea, constipation, or changes in stool consistency or caliber. GENITOURINARY: Denies frequency, urgency, nocturia, hematuria or incontinence. Andres in place PHYSICAL EXAM GENERAL APPEARANCE: Patient is alert, oriented, resting comfortably in his bed, with ips in place. NECK: Supple. No JVD. CHEST: Normal chest expansion. Telemetry in place. LUNGS: Absence of any rales, rhonchi or any wheezing. Chest tube in place. CARDIOVASCULAR: Regular. S1 and S2 normal. No appreciable rubs, murmurs or g allops. ABDOMEN: Soft, nontender, and nondistended. There is no rebound, voluntary gua rding, or rigidity. : Deferred. No Andres. EXTREMITIES: Diminished pulse in the left lower extremity, cold to touch, swollen, mottled and cyanotic appearance in all the toes, Improving now Pulses present per Doppler. SKIN: No skin breakdown. Vital Signs (last 8hr) Date Time Temp Pulse Resp B/P (MAP) Pulse Ox O2 Delivery O2 Flow Rate FiO2 01/06/25 14:00 89 22 131/80 (97) 97 21 01/06/25 13:00 90 29 104/63 (77) 96 21 01/06/25 12:48 94 20 N/A Room Air 01/06/25 12:01 89 19 01/06/25 12:00 89 26 140/89 (106) 99 21 01/06/25 11:19 99.0 01/06/25 11:00 93 23 127/78 (94) 96 21 01/06/25 10:00 98 28 149/88 (108) 96 21 01/06/25 09:00 105 27 152/90 (110) 96 21 01/06/25 08:10 97.9 01/06/25 08:00 95 11 156/104 (121) 97 21 LABS: Laboratory: Test 01/06/25 07:44 01/06/25 03:47 01/05/25 16:10 Range/Units Activated Partial Thromboplast Time 49.3 H 26.3-35.5 SEC White Blood Count 9.8 4.8-10.8 K/uL Red Blood Count 4.19 L 4.50-6.20 MIL/uL Hemoglobin 10.8 L 14.0-18.0 g/dL Hematocrit 34.3 L 42-54 % Mean Corpuscular Volume 81.9 79-99 fL Mean Corpuscular Hemoglobin 25.8 L 27.0-33.0 pg Mean Corpuscular Hemoglobin Concent 31.5 L 32.0-36.0 g/dL Red Cell Distribution Width 25.2 H 11.0-15.5 % Platelet Count 221 130-400 K/uL Mean Platelet Volume 7.5-10.5 fL Immature Granulocyte % (Auto) 1.6 H 0-1 % Neutrophils (%) (Auto) 71.2 40.0-77.0 % Lymphocytes (%) (Auto) 16.4 L 21.0-51.0 % Monocytes (%) (Auto) 7.3 3.0-13.0 % Eosinophils (%) (Auto) 3.2 0.0-8.0 % Basophils (%) (Auto) 0.3 0.0-5.0 % Neutrophils # (Auto) 7.0 1.8-7.7 K/uL Lymphocytes # (Auto) 1.6 1.0-4.8 K/uL Monocytes # (Auto) 0.7 0.1-1.0 K/uL Eosinophils # (Auto) 0.31 0.00-0.70 K/uL Basophils # (Auto) 0.03 0.00-0.20 K/uL Absolute Immature Granulocyte (auto 0.16 0-1 K/uL Nucleated Red Blood Cells 3.0 H 0.0-0.19 % Sodium Level 140 136-145 mmol/L Potassium Level 3.3 L 3.5-5.1 mmol/L Chloride Level 99 L 101-111 mmol/L Carbon Dioxide Level 25 21-32 mmol/L Blood Urea Nitrogen 97 *H 7-18 mg/dL Creatinine 8.3 *H 0.5-1.3 mg/dL Glomerular Filtration Rate Calc 7 >90 mL/min Random Glucose 96 70-105 mg/dL Total Calcium 8.2 L 8.5-10.1 mg/dL Phosphorus Level 7.1 H 2.5-4.9 mg/dL Magnesium Level 2.20 1.80-2.40 mg/dL Urine Color COLORLESS YELLOW Urine Appearance CLEAR CLEAR Urine pH 7.0 5.0-8.0 Urine Specific [place] 1.011 1.001-1.031 Urine Protein 30 H NEGATIVE mg/dL Urine Glucose (UA) NEGATIVE NEGATIVE mg/dL Urine Ketones NEGATIVE NEGATIVE mg/dL Urine Occult Blood MODERATE H NEGATIVE Urine Nitrate NEGATIVE NEGATIVE Urine Bilirubin NEGATIVE NEGATIVE mg/dL Urine Urobilinogen 0.2 0.2-1.0 mg/dL Urine Leukocyte Esterase NEGATIVE NEGATIVE Jorge/uL Urine RBC 0-1 0-1 /HPF Urine WBC 2-5 H 0-1 /HPF Urine Bacteria None None Seen /HPF Urine Osmolality 364 50-1200 mOsm/kg Urine Random Creatinine 37.80 30-135 mg/dL Urine Random Sodium 112 40-220 mmol/l Urine Random Potassium 14 L 25-125 mmol/L Urine Random Chloride 92 L 110-250 mmol/L Current Medications Medications (Trade) Dose Ordered Sig/Mila Route PRN Reason Start Time Stop Time Status Last Admin Dose Admin Acetaminophen (TYLenol 325MG TAB) 650 mg Q4H PRN PO Temp >38.3C(AFTER EXTUBATION) 12/28/24 14:00 01/27/25 13:59 Acetaminophen (TYLenol 325MG TAB) 650 mg Q6H PRN PO MILD PAIN (1-3) 12/24/24 01:30 12/28/24 13:57 DC 12/27/24 23:45 650 MG Acetaminophen (TYLenol 325MG TAB) 650 mg Q6H PRN PO TEMPERATURE GREATER THAN 101.5 12/24/24 03:00 12/28/24 14:10 DC Acetaminophen (TYLenol 325MG TAB) 650 mg Q6H PRN PO MILD PAIN (1-3) 12/28/24 14:00 01/27/25 13:59 01/05/25 20:03 650 MG Acetaminophen (TYLenol 650MG SUPPOSITORY) 650 mg Q4H PRN RC Temp >38.3C WHILE INTUBATED 12/28/24 14:00 01/27/25 13:59 Acetaminophen (acetaMINOPHEN) 1,000 mg Q6H6 IV 12/28/24 18:00 12/29/24 17:59 DC 12/29/24 17:27 1,000 MG Acetaminophen (acetaMINOPHEN) 1,000 mg Q6H6 IVPB 12/30/24 00:00 12/31/24 20:14 DC 12/30/24 18:16 1,000 MG Albumin Human 250 ml @ 0 mls/hr AD PRN IV IF HEMODYNAMICALLY UNSTABLE 12/28/24 14:00 12/29/24 09:28 DC 12/29/24 09:28 250 MLS/HR Albuterol (DUOneb) 1 UDVIAL [id number] IH 01/01/25 18:00 01/01/25 15:25 DC Albuterol Sulfate (Proventil 0.083% 2.5mg/3ml) 2.5 mg ONCE STAT IH 12/30/24 10:22 12/30/24 10:32 DC 12/30/24 10:43 2.5 MG Aminocaproic Acid 37914 mg/Sodium Chloride 310 ml @ 25 mls/hr AD IV 12/28/24 14:00 12/28/24 14:14 DC Aminocaproic Acid 17049 mg/Sodium Chloride 480 ml @ 0 mls/hr AD PRN IV BLEEDING CONTROL 12/27/24 11:00 01/26/25 10:59 Amiodarone HCl (pacERONE 200MG) 200 mg DAILY PO 01/05/25 09:00 02/04/25 08:59 01/06/25 10:47 200 MG Amiodarone HCl 150 mg/Dextrose 103 ml @ 618 mls/hr ONCE IV 01/04/25 06:30 01/04/25 06:21 DC Amiodarone HCl 360 mg/Dextrose 207.2 ml @ 33.3 mls/hr AD IV 01/04/25 06:30 01/04/25 06:21 DC Amiodarone HCl 540 mg/Dextrose 310.8 ml @ 16.7 mls/hr [id number] IV 01/04/25 06:30 02/03/25 06:29 01/04/25 13:01 16.7 MLS/HR Argatroban 250 mg/ Sodium Chloride 250 ml @ 0 mls/hr PROTOCOL IV 12/31/24 16:30 01/30/25 16:29 12/31/24 22:32 2.61 MLS/HR Aspirin (Aspirin 81mg Ec Tab) 81 mg DAILY PO 12/24/24 09:00 01/23/25 08:59 01/06/25 09:27 81 MG Atorvastatin Calcium (LIPItor 40MG) 40 mg HS PO 12/24/24 21:00 01/01/25 11:16 DC 12/31/24 20:44 40 MG Benzocaine (Cepacol Sore Throat Lozenge) 1 each Q4H PRN MM SORE THROAT 01/03/25 13:30 02/02/25 13:29 01/06/25 11:16 1 EACH Bisacodyl (DulcoLAX) 10 mg DAILY PRN RC CONSTIPATION - MOM INEFFECTIVE 12/29/24 14:00 01/28/25 13:59 12/30/24 11:05 10 MG Calcium Gluconate 1 gm/Sodium Chloride 60 ml @ 200 mls/hr AD PRN IV HYPOCALCEMIA 12/28/24 14:00 01/27/25 13:59 01/01/25 01:52 200 MLS/HR Cefazolin Sodium (ANCEF 1 gm vial) 2 gm ONCALL IVP 12/26/24 16:30 12/26/24 16:28 DC Cefazolin Sodium (Ancef) 2 gm ONCALL PRN IVP SURGERY 12/26/24 16:30 12/28/24 13:57 DC Cefazolin Sodium (Ancef) 2 gm Q8H IVPB 12/28/24 19:00 12/29/24 11:01 DC 12/29/24 11:04 2 GM Dexmedetomidine/ Sodium Chloride (PRECEdex 400MCG/ 100ML-NS) 400 mcg PROTOCOL IV 12/28/24 14:00 12/29/24 13:59 DC 12/29/24 12:16 400 MCG Dexmedetomidine/ Sodium Chloride (PRECEdex 400MCG/ 100ML-NS) 400 mcg PROTOCOL IV 12/29/24 18:00 01/28/25 17:59 12/31/24 06:05 400 MCG Dextrose (D50w) 50 ml AD PRN IV HYPOGLYCEMIA PROTOCOL 12/28/24 14:00 01/27/25 13:59 Dextrose (D50w) 50 ml ONCE STAT IV 12/30/24 11:36 12/30/24 11:39 DC 12/30/24 11:45 50 ML Dextrose/Sodium Chloride 1,000 ml @ 50 mls/hr Q20H IV 12/30/24 11:30 01/01/25 16:17 DC 01/01/25 02:09 50 MLS/HR Dobutamine HCl/ Dextrose 250 ml @ 0 mls/hr PROTOCOL IV 12/29/24 14:00 01/28/25 13:59 01/05/25 08:48 4.1 MLS/HR Docusate Sodium (COLace 100MG CAP) 100 mg BID PO 12/28/24 21:00 12/29/24 08:01 DC 12/28/24 20:53 100 MG Docusate Sodium (COLace LIQUID 100MG/10ML) 100 mg BID PO 12/29/24 08:00 01/28/25 07:59 01/06/25 09:27 100 MG Enoxaparin Sodium (Lovenox) 30 mg DAILY SQ 12/31/24 09:00 12/31/24 16:12 DC Epinephrine HCl 10 mg/Sodium Chloride 250 ml @ 0 mls/hr AD PRN IV TITRATE 12/27/24 11:00 01/26/25 10:59 12/30/24 04:29 0 MLS/HR Epinephrine HCl 10 mg/Sodium Chloride 250 ml @ 0 mls/hr AD PRN IV POST-OP CARDIOVASCULAR ORDERS 12/28/24 14:00 12/28/24 14:14 DC Famotidine (Pepcid 20mg Vial) 20 mg BID IV 12/28/24 21:00 12/31/24 20:20 DC 12/31/24 08:51 20 MG Famotidine (Pepcid 20mg Vial) 20 mg Q48H IV 01/02/25 09:00 01/02/25 04:51 DC Famotidine (Pepcid 20mg Tab) 20 mg DAILY PO 12/24/24 09:00 12/28/24 13:54 DC 12/26/24 10:19 20 MG Furosemide (LASix 20MG TAB) 20 mg Q12H PO 12/30/24 09:00 12/30/24 08:34 DC Furosemide (LASix 20MG VIAL) 20 mg Q12H IV 12/29/24 09:00 12/30/24 08:34 DC 12/29/24 09:20 20 MG Furosemide 100 mg/ Sodium Chloride 100 ml @ 0 mls/hr PROTOCOL IV 12/29/24 14:30 01/28/25 14:29 01/03/25 16:54 2.5 MLS/HR Glucagon (Glucagon 1mg Kit) 1 mg AD PRN IM HYPOGLYCEMIA PROTOCOL 12/28/24 14:00 01/27/25 13:59 Guaifenesin/ Dextromethorphan (RobiTUSSin DM 200/20MG 10ML) 10 ml Q4H PRN PO COUGH 01/03/25 16:30 02/02/25 16:29 01/04/25 15:44 10 ML Heparin Sodium (Porcine) (HEParin 5,000 UNIT VIAL) *calculation based on ACTUAL B... AD PRN IV HEPARIN PROTOCOL 12/24/24 02:30 12/28/24 13:54 DC 12/24/24 17:32 5,000 UNIT Heparin Sodium/ Dextrose 250 ml @ 0 mls/hr Q6H IV 12/24/24 02:30 12/28/24 13:54 DC 12/27/24 17:04 11.3 MLS/HR Hydralazine HCl (APRESOLine 20MG INJ) 10 mg Q6H PRN IV For:SBP above 160;DBP above 90 12/24/24 03:00 12/28/24 13:54 DC Insulin Human Regular (humuLIN R 100 UNIT/ML 3ML) 10 unit ONCE STAT IV 12/30/24 11:42 12/30/24 11:45 DC 12/30/24 12:01 10 UNIT Insulin Human Regular (humuLIN R 100 UNIT/ML 3ML) 10 unit ONCE STAT SQ 12/30/24 11:36 12/30/24 11:43 DC Insulin Human Regular 100 unit/ Sodium Chloride 100 ml @ 0 mls/hr AD IV 12/28/24 14:00 12/29/24 17:55 DC 12/28/24 17:09 5 MLS/HR Ipratropium [place] (AtrovENT UD) 0.5 mg [id number] IH 12/30/24 12:00 01/29/25 11:59 01/06/25 12:01 0.5 MG Lactulose (Constulose 20gm/ 30ml Udcup) 20 gm BID PRN PO CONSTIPATION 12/24/24 03:00 12/28/24 13:54 DC 12/26/24 21:30 20 GM Lactulose (Constulose 20gm/ 30ml Udcup) 20 gm BID PRN PO CONSTIPATION 12/28/24 14:00 01/27/25 13:59 12/30/24 07:50 20 GM Lidocaine HCl/ Dextrose 250 ml @ 0 mls/hr AD PRN IV TITRATE 12/28/24 22:30 12/29/24 16:00 DC 12/29/24 06:53 15 MLS/HR Magnesium Hydroxide (Milk Of Magnesium 30ml) 30 ml DAILY PRN PO CONSTIPATION 12/28/24 14:00 01/27/25 13:59 12/30/24 10:18 30 ML Magnesium Sulfate 50 ml @ 12.5 mls/hr AD PRN IV MAG LEVEL LESS THAN 2.0 12/28/24 14:00 01/27/25 13:59 12/28/24 18:42 12.5 MLS/HR Magnesium Sulfate 50 ml @ 0 mls/hr PROTOCOL PRN IV MAGNESIUM PROTOCOL 12/26/24 15:00 12/28/24 14:10 DC Metolazone (zarOXOlyn) 5 mg ONCE PO 12/31/24 12:00 12/31/24 20:18 DC 12/31/24 12:01 5 MG Metolazone (zarOXOlyn) 5 mg ONCE PO 01/01/25 16:30 01/02/25 16:29 DC 01/01/25 16:53 5 MG Metoprolol Tartrate (loprESSOR) 12.5 mg BID PO 12/30/24 09:00 01/04/25 08:51 DC 01/03/25 20:09 12.5 MG Metoprolol Tartrate (loprESSOR) 25 mg BID PO 12/25/24 21:00 12/28/24 13:54 DC 12/28/24 09:28 25 MG Metoprolol Tartrate (loprESSOR) 25 mg TID PO 01/04/25 09:00 01/06/25 13:08 DC 01/06/25 09:27 25 MG Metoprolol Tartrate (loprESSOR) 50 mg BID PO 01/06/25 21:00 02/05/25 20:59 Morphine Sulfate (morPHINE 2MG SYG) 0.5 mg Q2H PRN IV MODERATE PAIN (4-6) 12/28/24 14:00 12/29/24 13:59 DC Morphine Sulfate (morPHINE 2MG SYG) 1 mg Q2H PRN IV SEVERE PAIN (7-10) 12/28/24 14:00 12/29/24 13:59 DC 12/28/24 17:05 1 MG Morphine Sulfate (morPHINE 2MG SYG) 2 mg Q4H PRN IVP SEVERE PAIN (7-10) 12/24/24 03:00 12/28/24 13:54 DC 12/26/24 02:43 2 MG Nitroglycerin (Nitroglycerin 1gm Oint) 0.5 inch Q8H5 TD 12/24/24 01:30 12/28/24 13:54 DC 12/27/24 12:57 0.5 INCH Nitroglycerin (Nitroglycerin 1gm Oint) 1 inch Q8H TD 01/04/25 15:00 02/03/25 14:59 01/06/25 15:40 1 INCH Nitroglycerin/ Dextrose 0 ml @ 0 mls/hr AD IV 12/28/24 14:00 12/31/24 14:00 DC Nitroglycerin/ Dextrose 0 ml @ 0 mls/hr AD PRN IV TITRATE 01/01/25 06:30 01/31/25 06:29 01/05/25 20:54 12 MLS/HR Norepinephrine Bitartrate 250 ml @ 0 mls/hr AD PRN IV TITRATE 12/27/24 11:00 01/26/25 10:59 01/04/25 06:14 0 MLS/HR Norepinephrine Bitartrate 8 mg/ Dextrose 250 ml @ 0 mls/hr AD PRN IV POST-OP CARDIOVASCULAR ORDERS 12/28/24 14:00 12/28/24 14:14 DC Ondansetron HCl (zoFRAN 4MG INJ) 4 mg Q6H PRN IV NAUSEA/VOMITING 12/24/24 03:00 12/28/24 13:54 DC Ondansetron HCl (zoFRAN 4MG INJ) 4 mg Q6H PRN IV NAUSEA/VOMITING 12/28/24 14:00 01/27/25 13:59 12/30/24 11:01 4 MG Pantoprazole Sodium (PROTonix 40MG INJ) 40 mg BID IVP 01/05/25 09:00 02/04/25 08:59 01/06/25 09:27 40 MG Pantoprazole Sodium (PROTonix 40MG INJ) 40 mg Q12H IVP 01/02/25 05:00 01/05/25 04:04 DC 01/04/25 16:00 40 MG Phenol (Sore Throat [place]) 1 SPRAY Q4H PRN PO SORE THROAT 01/06/25 10:30 02/05/25 10:29 01/06/25 11:20 1 SPRY Piperacillin Sod/ Tazobactam Sod (Zosyn 3.375gm+NS 50ml) 3.375 gm Q12H IV 12/30/24 15:30 01/05/25 04:05 DC 01/04/25 14:38 3.375 GM Piperacillin Sod/ Tazobactam Sod (Zosyn 3.375gm+NS 50ml) 3.375 gm Q12H IV 01/05/25 09:00 01/09/25 08:59 01/06/25 09:27 3.375 GM Potassium Phosphate 250 ml @ 42 mls/hr AD PRN IV LOW PHOS LEVEL 12/28/24 14:00 01/27/25 13:59 12/29/24 06:12 42 MLS/HR Potassium Chloride 100 ml @ 100 mls/hr AD PRN IV POTASSIUM PROTOCOL 12/26/24 15:00 12/28/24 13:54 DC Potassium Chloride 100 ml @ 100 mls/hr AD PRN IV HYPOKALEMIA 12/28/24 14:00 01/27/25 13:59 01/05/25 16:19 100 MLS/HR Potassium Chloride (K-Dur/Klor-Con 20meq) 20 meq AD PRN PO POTASSIUM PROTOCOL 12/26/24 15:00 12/28/24 13:54 DC 12/26/24 18:27 20 MEQ Potassium Chloride (KCl 10% Elixir 20meq/15ml) 20 meq AD PRN PO POTASSIUM PROTOCOL 12/26/24 15:00 12/28/24 13:54 DC Propofol 100 ml @ 0 mls/hr AD PRN IV SEDATION 12/28/24 14:00 01/01/25 13:59 DC Sodium Polystyrene Sulfonate (kayEXALate 15 GM/60 ML) 30 gm ONCE STAT PO 12/30/24 11:36 12/30/24 11:39 DC 12/30/24 11:45 30 GM Sodium Bicarbonate (Sodium Bicarb 50meq 50ml Vial) 50 meq AD PRN IV OTHER[SEE DOSING INSTRUCTIONS] 12/28/24 14:00 12/31/24 14:00 DC 12/30/24 12:45 100 MEQ Sodium Chloride 500 ml @ 0 mls/hr AD IV 12/28/24 14:00 01/27/25 13:59 Sodium Chloride 1,000 ml @ 10 mls/hr ONCE IV 12/28/24 14:00 12/29/24 13:59 DC 12/28/24 17:06 10 MLS/HR Sodium Chloride (NS Flush 10ml) 10 ml Q8H PRN IVP IV LINE FLUSH 12/28/24 14:00 01/27/25 13:59 Sodium Chloride (Sodium Chloride 3% Inh) 4 ML [id number] IH 01/04/25 12:00 02/03/25 11:59 01/06/25 12:01 4 ML Tramadol HCl (UltRAM) 25 mg Q6H PRN PO MODERATE PAIN (4-6) 12/28/24 14:00 12/29/24 13:56 DC 12/29/24 11:05 25 MG Tramadol HCl (UltRAM) 50 mg Q6H PRN PO SEVERE PAIN (7-10) 12/28/24 14:00 12/29/24 13:56 DC Vasopressin 20 units/Sodium Chloride 100 ml @ 0 mls/hr PROTOCOL IV 12/30/24 15:30 01/29/25 15:29 12/31/24 10:40 6 MLS/HR DIAGNOSTICS / RADIOLOGY: [ ] ASSESSMENT: 1. Non-STEMI. 2. Multi-vessel coronary artery disease status post CABG 12/28/2024 3. 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 HFrEF LV ejection fraction 25-30% by echo on 01/01/2025 5. Mild ischemic cardiomyopathy with LVEF 45-50 by left heart catheterization. 6. Hypertension. 7. Anemia. PLAN: ACS NSTEMI due to Multi vessel CAD, s/p CABG Day 5 * Continue aspirin, atorvastatin * Continue argatroban and wean nitroglycerin GTT as per cardiology recommendation * Plan to start Clopidogrel on discharge, as per Cardiology consult * Encouraged to cough to clear the secretions and use p.r.n. 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 daily * Monitor for signs of bleeding Acute on chronic renal dysfunction * Patient BUN is 97 and creatinine 8.3, (16 and 0.9 POA) * Patient urine output is currently 2 L * Nephrology recommended ordering urine electrolytes, urine creatinine random, urine osmolality and repeat urinalysis * Monitor CBC and electrolytes in the a.m. daily GI prophylaxis with Protonix 40 mg IV Continue DVT prophylaxis with SCDs ATTESTATION BY PHYSICIAN I have seen and examined the patient. I reviewed the documentation, medical decision making, and treatment plan as noted by the resident provider above. I agree with the findings and plan of care. Arnulfo Rios MD, HARSHAVARDHA MD Jan 06, 2025 15:42
--- NOTE | 2025-01-06 15:56 | NUR ---
[facility] ICU Skin Assessment: Patient assessed by wound healing team. Left foot wound managed by Dr. Persaud, patient with no other wounds or skin breakdown noted. Assessment and recommendations provided to primary nurse. Education provided.
[2025-01-06] MEDS: PoTASSium chl 10% ELIXIR 20MEQ 20 MEQ/15 ML UDCUP PO ONE (16:35)
--- NOTE | 2025-01-06 16:56 | PN ---
NEPHROLOGY PROGRESS NOTE Date/Time Patient Seen: Jan 06, 2025 SUBJECTIVE: The patient is doing poorly. This patient has renal failure, which is worsening. The patient has coronary artery disease and CABG. The patient also has atrial fibrillation episode. The patient has been on diuretics as per surgical team. His urine output though has been maintained, but creatinine has been getting worse. He has minimal edema. The patient denies any shortness of breath. The patient has no other associated findings. Continues on Lasix drip Hypokalemia noted. Urine output was noted. Renal function noted. He was seen in the ICU REVIEW OF SYSTEMS: GENERAL: Negative for any nausea, vomiting, fevers, chills, or weight loss. NEUROLOGIC: Negative for any blurry vision, blind spots, double vision, facial asymmetry, dysphagia, dysarthria, hemiparesis, hemisensory deficits, vertigo, ataxia. HEENT: Negative for any head trauma, neck trauma, neck stiffness, photophobia, phonophobia, sinusitis, rhinitis. CARDIAC: Negative for any chest pain, dyspnea on exertion, paroxysmal nocturnal dyspnea, peripheral edema. PULMONARY: Negative for any shortness of breath, wheezing, COPD, or TB exposure. GASTROINTESTINAL: Negative for any abdominal pain, nausea, vomiting, bright red blood per rectum, melena. GENITOURINARY: Negative for any dysuria, hematuria, incontinence. INTEGUMENTARY: Negative for any rashes, cuts, insect bites. RHEUMATOLOGIC: Negative for any joint pains, photosensitive rashes, history of vasculitis or kidney problems. HEMATOLOGIC: Negative for any abnormal bruising, frequent infections or blee ding. Vital Signs (last 8hr) Date Time Temp Pulse Resp B/P (MAP) Pulse Ox O2 Delivery O2 Flow Rate FiO2 01/06/25 16:27 98.4 01/06/25 16:00 88 15 151/89 (109) 98 21 01/06/25 15:00 89 24 156/93 (114) 97 21 01/06/25 14:00 89 22 131/80 (97) 97 21 01/06/25 13:00 90 29 104/63 (77) 96 01/06/25 12:48 94 20 N/A Room Air 01/06/25 12:01 89 19 01/06/25 12:00 89 26 140/89 (106) 99 01/06/25 11:19 99.0 01/06/25 11:00 93 23 127/78 (94) 96 21 01/06/25 10:00 98 28 149/88 (108) 96 21 01/06/25 09:00 105 27 152/90 (110) 96 21 PHYSICAL EXAM: GENERAL: Alert and oriented x 3. No acute distress. Well-nourished. EYES: EOMI. Anicteric. HENT: Moist mucous membranes. No scleral icterus. No cervical lymphadenopathy. LUNGS: Clear to auscultation bilaterally. No accessory muscle use. CARDIOVASCULAR: Regular rate and rhythm. No murmur. No JVD. ABDOMEN: Soft, non-tender and non-distended. No palpable masses. EXTREMITIES: No edema. Non-tender.?SKIN: No rashes or lesions. Warm. NEUROLOGIC: No focal neurological deficits. CN II-XII grossly intact, but not individually tested. PSYCHIATRIC: Cooperative. Appropriate mood and affect. Current Medications Medications (Trade) Dose Ordered Sig/Mila Route PRN Reason Start Time Stop Time Status Last Admin Dose Admin Acetaminophen (TYLenol 325MG TAB) 650 mg Q4H PRN PO Temp >38.3C(AFTER EXTUBATION) 12/28/24 14:00 01/27/25 13:59 Acetaminophen (TYLenol 325MG TAB) 650 mg Q6H PRN PO MILD PAIN (1-3) 12/24/24 01:30 12/28/24 13:57 DC 12/27/24 23:45 650 MG Acetaminophen (TYLenol 325MG TAB) 650 mg Q6H PRN PO TEMPERATURE GREATER THAN 101.5 12/24/24 03:00 12/28/24 14:10 DC Acetaminophen (TYLenol 325MG TAB) 650 mg Q6H PRN PO MILD PAIN (1-3) 12/28/24 14:00 01/27/25 13:59 01/05/25 20:03 650 MG Acetaminophen (TYLenol 650MG SUPPOSITORY) 650 mg Q4H PRN RC Temp >38.3C WHILE INTUBATED 12/28/24 14:00 01/27/25 13:59 Acetaminophen (acetaMINOPHEN) 1,000 mg Q6H6 IV 12/28/24 18:00 12/29/24 17:59 DC 12/29/24 17:27 1,000 MG Acetaminophen (acetaMINOPHEN) 1,000 mg Q6H6 IVPB 12/30/24 00:00 12/31/24 20:14 DC 12/30/24 18:16 1,000 MG Albumin Human 250 ml @ 0 mls/hr AD PRN IV IF HEMODYNAMICALLY UNSTABLE 12/28/24 14:00 12/29/24 09:28 DC 12/29/24 09:28 250 MLS/HR Albuterol (DUOneb) 1 UDVIAL [id number] IH 01/01/25 18:00 01/01/25 15:25 DC Albuterol Sulfate (Proventil 0.083% 2.5mg/3ml) 2.5 mg ONCE STAT IH 12/30/24 10:22 12/30/24 10:32 DC 12/30/24 10:43 2.5 MG Aminocaproic Acid 85206 mg/Sodium Chloride 310 ml @ 25 mls/hr AD IV 12/28/24 14:00 12/28/24 14:14 DC Aminocaproic Acid 11962 mg/Sodium Chloride 480 ml @ 0 mls/hr AD PRN IV BLEEDING CONTROL 12/27/24 11:00 01/26/25 10:59 Amiodarone HCl (pacERONE 200MG) 200 mg DAILY PO 01/05/25 09:00 02/04/25 08:59 01/06/25 10:47 200 MG Amiodarone HCl 150 mg/Dextrose 103 ml @ 618 mls/hr ONCE IV 01/04/25 06:30 01/04/25 06:21 DC Amiodarone HCl 360 mg/Dextrose 207.2 ml @ 33.3 mls/hr AD IV 01/04/25 06:30 01/04/25 06:21 DC Amiodarone HCl 540 mg/Dextrose 310.8 ml @ 16.7 mls/hr [id number] IV 01/04/25 06:30 02/03/25 06:29 01/04/25 13:01 16.7 MLS/HR Argatroban 250 mg/ Sodium Chloride 250 ml @ 0 mls/hr PROTOCOL IV 12/31/24 16:30 01/30/25 16:29 12/31/24 22:32 2.61 MLS/HR Aspirin (Aspirin 81mg Ec Tab) 81 mg DAILY PO 12/24/24 09:00 01/23/25 08:59 01/06/25 09:27 81 MG Atorvastatin Calcium (LIPItor 40MG) 40 mg HS PO 12/24/24 21:00 01/01/25 11:16 DC 12/31/24 20:44 40 MG Benzocaine (Cepacol Sore Throat Lozenge) 1 each Q4H PRN MM SORE THROAT 01/03/25 13:30 02/02/25 13:29 01/06/25 11:16 1 EACH Bisacodyl (DulcoLAX) 10 mg DAILY PRN RC CONSTIPATION - MOM INEFFECTIVE 12/29/24 14:00 01/28/25 13:59 12/30/24 11:05 10 MG Calcium Gluconate 1 gm/Sodium Chloride 60 ml @ 200 mls/hr AD PRN IV HYPOCALCEMIA 12/28/24 14:00 01/27/25 13:59 01/01/25 01:52 200 MLS/HR Cefazolin Sodium (ANCEF 1 gm vial) 2 gm ONCALL IVP 12/26/24 16:30 12/26/24 16:28 DC Cefazolin Sodium (Ancef) 2 gm ONCALL PRN IVP SURGERY 12/26/24 16:30 12/28/24 13:57 DC Cefazolin Sodium (Ancef) 2 gm Q8H IVPB 12/28/24 19:00 12/29/24 11:01 DC 12/29/24 11:04 2 GM Dexmedetomidine/ Sodium Chloride (PRECEdex 400MCG/ 100ML-NS) 400 mcg PROTOCOL IV 12/28/24 14:00 12/29/24 13:59 DC 12/29/24 12:16 400 MCG Dexmedetomidine/ Sodium Chloride (PRECEdex 400MCG/ 100ML-NS) 400 mcg PROTOCOL IV 12/29/24 18:00 01/28/25 17:59 12/31/24 06:05 400 MCG Dextrose (D50w) 50 ml AD PRN IV HYPOGLYCEMIA PROTOCOL 12/28/24 14:00 01/27/25 13:59 Dextrose (D50w) 50 ml ONCE STAT IV 12/30/24 11:36 12/30/24 11:39 DC 12/30/24 11:45 50 ML Dextrose/Sodium Chloride 1,000 ml @ 50 mls/hr Q20H IV 12/30/24 11:30 01/01/25 16:17 DC 01/01/25 02:09 50 MLS/HR Dobutamine HCl/ Dextrose 250 ml @ 0 mls/hr PROTOCOL IV 12/29/24 14:00 01/28/25 13:59 01/05/25 08:48 4.1 MLS/HR Docusate Sodium (COLace 100MG CAP) 100 mg BID PO 12/28/24 21:00 12/29/24 08:01 DC 12/28/24 20:53 100 MG Docusate Sodium (COLace LIQUID 100MG/10ML) 100 mg BID PO 12/29/24 08:00 01/28/25 07:59 01/06/25 09:27 100 MG Enoxaparin Sodium (Lovenox) 30 mg DAILY SQ 12/31/24 09:00 12/31/24 16:12 DC Epinephrine HCl 10 mg/Sodium Chloride 250 ml @ 0 mls/hr AD PRN IV TITRATE 12/27/24 11:00 01/26/25 10:59 12/30/24 04:29 0 MLS/HR Epinephrine HCl 10 mg/Sodium Chloride 250 ml @ 0 mls/hr AD PRN IV POST-OP CARDIOVASCULAR ORDERS 12/28/24 14:00 12/28/24 14:14 DC Famotidine (Pepcid 20mg Vial) 20 mg BID IV 12/28/24 21:00 12/31/24 20:20 DC 12/31/24 08:51 20 MG Famotidine (Pepcid 20mg Vial) 20 mg Q48H IV 01/02/25 09:00 01/02/25 04:51 DC Famotidine (Pepcid 20mg Tab) 20 mg DAILY PO 12/24/24 09:00 12/28/24 13:54 DC 12/26/24 10:19 20 MG Furosemide (LASix 20MG TAB) 20 mg Q12H PO 12/30/24 09:00 12/30/24 08:34 DC Furosemide (LASix 20MG VIAL) 20 mg Q12H IV 12/29/24 09:00 12/30/24 08:34 DC 12/29/24 09:20 20 MG Furosemide 100 mg/ Sodium Chloride 100 ml @ 0 mls/hr PROTOCOL IV 12/29/24 14:30 01/28/25 14:29 01/03/25 16:54 2.5 MLS/HR Glucagon (Glucagon 1mg Kit) 1 mg AD PRN IM HYPOGLYCEMIA PROTOCOL 12/28/24 14:00 01/27/25 13:59 Guaifenesin/ Dextromethorphan (RobiTUSSin DM 200/20MG 10ML) 10 ml Q4H PRN PO COUGH 01/03/25 16:30 02/02/25 16:29 01/04/25 15:44 10 ML Heparin Sodium (Porcine) (HEParin 5,000 UNIT VIAL) *calculation based on ACTUAL B... AD PRN IV HEPARIN PROTOCOL 12/24/24 02:30 12/28/24 13:54 DC 12/24/24 17:32 5,000 UNIT Heparin Sodium/ Dextrose 250 ml @ 0 mls/hr Q6H IV 12/24/24 02:30 12/28/24 13:54 DC 12/27/24 17:04 11.3 MLS/HR Hydralazine HCl (APRESOLine 20MG INJ) 10 mg Q6H PRN IV For:SBP above 160;DBP above 90 12/24/24 03:00 12/28/24 13:54 DC Insulin Human Regular (humuLIN R 100 UNIT/ML 3ML) 10 unit ONCE STAT IV 12/30/24 11:42 12/30/24 11:45 DC 12/30/24 12:01 10 UNIT Insulin Human Regular (humuLIN R 100 UNIT/ML 3ML) 10 unit ONCE STAT SQ 12/30/24 11:36 12/30/24 11:43 DC Insulin Human Regular 100 unit/ Sodium Chloride 100 ml @ 0 mls/hr AD IV 12/28/24 14:00 12/29/24 17:55 DC 12/28/24 17:09 5 MLS/HR Ipratropium [place] (AtrovENT UD) 0.5 mg [id number] IH 12/30/24 12:00 01/29/25 11:59 01/06/25 12:01 0.5 MG Lactulose (Constulose 20gm/ 30ml Udcup) 20 gm BID PRN PO CONSTIPATION 12/24/24 03:00 12/28/24 13:54 DC 12/26/24 21:30 20 GM Lactulose (Constulose 20gm/ 30ml Udcup) 20 gm BID PRN PO CONSTIPATION 12/28/24 14:00 01/27/25 13:59 12/30/24 07:50 20 GM Lidocaine HCl/ Dextrose 250 ml @ 0 mls/hr AD PRN IV TITRATE 12/28/24 22:30 12/29/24 16:00 DC 12/29/24 06:53 15 MLS/HR Magnesium Hydroxide (Milk Of Magnesium 30ml) 30 ml DAILY PRN PO CONSTIPATION 12/28/24 14:00 01/27/25 13:59 12/30/24 10:18 30 ML Magnesium Sulfate 50 ml @ 12.5 mls/hr AD PRN IV MAG LEVEL LESS THAN 2.0 12/28/24 14:00 01/27/25 13:59 12/28/24 18:42 12.5 MLS/HR Magnesium Sulfate 50 ml @ 0 mls/hr PROTOCOL PRN IV MAGNESIUM PROTOCOL 12/26/24 15:00 12/28/24 14:10 DC Metolazone (zarOXOlyn) 5 mg ONCE PO 12/31/24 12:00 12/31/24 20:18 DC 12/31/24 12:01 5 MG Metolazone (zarOXOlyn) 5 mg ONCE PO 01/01/25 16:30 01/02/25 16:29 DC 01/01/25 16:53 5 MG Metoprolol Tartrate (loprESSOR) 12.5 mg BID PO 12/30/24 09:00 01/04/25 08:51 DC 01/03/25 20:09 12.5 MG Metoprolol Tartrate (loprESSOR) 25 mg BID PO 12/25/24 21:00 12/28/24 13:54 DC 12/28/24 09:28 25 MG Metoprolol Tartrate (loprESSOR) 25 mg TID PO 01/04/25 09:00 01/06/25 13:08 DC 01/06/25 09:27 25 MG Metoprolol Tartrate (loprESSOR) 50 mg BID PO 01/06/25 21:00 02/05/25 20:59 Morphine Sulfate (morPHINE 2MG SYG) 0.5 mg Q2H PRN IV MODERATE PAIN (4-6) 12/28/24 14:00 12/29/24 13:59 DC Morphine Sulfate (morPHINE 2MG SYG) 1 mg Q2H PRN IV SEVERE PAIN (7-10) 12/28/24 14:00 12/29/24 13:59 DC 12/28/24 17:05 1 MG Morphine Sulfate (morPHINE 2MG SYG) 2 mg Q4H PRN IVP SEVERE PAIN (7-10) 12/24/24 03:00 12/28/24 13:54 DC 12/26/24 02:43 2 MG Nitroglycerin (Nitroglycerin 1gm Oint) 0.5 inch Q8H5 TD 12/24/24 01:30 12/28/24 13:54 DC 12/27/24 12:57 0.5 INCH Nitroglycerin (Nitroglycerin 1gm Oint) 1 inch Q8H TD 01/04/25 15:00 02/03/25 14:59 01/06/25 15:40 1 INCH Nitroglycerin/ Dextrose 0 ml @ 0 mls/hr AD IV 12/28/24 14:00 12/31/24 14:00 DC Nitroglycerin/ Dextrose 0 ml @ 0 mls/hr AD PRN IV TITRATE 01/01/25 06:30 01/31/25 06:29 01/05/25 20:54 12 MLS/HR Norepinephrine Bitartrate 250 ml @ 0 mls/hr AD PRN IV TITRATE 12/27/24 11:00 01/26/25 10:59 01/04/25 06:14 0 MLS/HR Norepinephrine Bitartrate 8 mg/ Dextrose 250 ml @ 0 mls/hr AD PRN IV POST-OP CARDIOVASCULAR ORDERS 12/28/24 14:00 12/28/24 14:14 DC Ondansetron HCl (zoFRAN 4MG INJ) 4 mg Q6H PRN IV NAUSEA/VOMITING 12/24/24 03:00 12/28/24 13:54 DC Ondansetron HCl (zoFRAN 4MG INJ) 4 mg Q6H PRN IV NAUSEA/VOMITING 12/28/24 14:00 01/27/25 13:59 12/30/24 11:01 4 MG Pantoprazole Sodium (PROTonix 40MG INJ) 40 mg BID IVP 01/05/25 09:00 02/04/25 08:59 01/06/25 09:27 40 MG Pantoprazole Sodium (PROTonix 40MG INJ) 40 mg Q12H IVP 01/02/25 05:00 01/05/25 04:04 DC 01/04/25 16:00 40 MG Phenol (Sore Throat [place]) 1 SPRAY Q4H PRN PO SORE THROAT 01/06/25 10:30 02/05/25 10:29 01/06/25 16:37 1 SPRY Piperacillin Sod/ Tazobactam Sod (Zosyn 3.375gm+NS 50ml) 3.375 gm Q12H IV 12/30/24 15:30 01/05/25 04:05 DC 01/04/25 14:38 3.375 GM Piperacillin Sod/ Tazobactam Sod (Zosyn 3.375gm+NS 50ml) 3.375 gm Q12H IV 01/05/25 09:00 01/09/25 08:59 01/06/25 09:27 3.375 GM Potassium Phosphate 250 ml @ 42 mls/hr AD PRN IV LOW PHOS LEVEL 12/28/24 14:00 01/27/25 13:59 12/29/24 06:12 42 MLS/HR Potassium Chloride 100 ml @ 100 mls/hr AD PRN IV POTASSIUM PROTOCOL 12/26/24 15:00 12/28/24 13:54 DC Potassium Chloride 100 ml @ 100 mls/hr AD PRN IV HYPOKALEMIA 12/28/24 14:00 01/27/25 13:59 01/05/25 16:19 100 MLS/HR Potassium Chloride (K-Dur/Klor-Con 20meq) 20 meq AD PRN PO POTASSIUM PROTOCOL 12/26/24 15:00 12/28/24 13:54 DC 12/26/24 18:27 20 MEQ Potassium Chloride (KCl 10% Elixir 20meq/15ml) 20 meq AD PRN PO POTASSIUM PROTOCOL 12/26/24 15:00 12/28/24 13:54 DC Propofol 100 ml @ 0 mls/hr AD PRN IV SEDATION 12/28/24 14:00 01/01/25 13:59 DC Sodium Polystyrene Sulfonate (kayEXALate 15 GM/60 ML) 30 gm ONCE STAT PO 12/30/24 11:36 12/30/24 11:39 DC 12/30/24 11:45 30 GM Sodium Bicarbonate (Sodium Bicarb 50meq 50ml Vial) 50 meq AD PRN IV OTHER[SEE DOSING INSTRUCTIONS] 12/28/24 14:00 12/31/24 14:00 DC 12/30/24 12:45 100 MEQ Sodium Chloride 500 ml @ 0 mls/hr AD IV 12/28/24 14:00 01/27/25 13:59 Sodium Chloride 1,000 ml @ 10 mls/hr ONCE IV 12/28/24 14:00 12/29/24 13:59 DC 12/28/24 17:06 10 MLS/HR Sodium Chloride (NS Flush 10ml) 10 ml Q8H PRN IVP IV LINE FLUSH 12/28/24 14:00 01/27/25 13:59 Sodium Chloride (Sodium Chloride 3% Inh) 4 ML [id number] IH 01/04/25 12:00 02/03/25 11:59 01/06/25 12:01 4 ML Tramadol HCl (UltRAM) 25 mg Q6H PRN PO MODERATE PAIN (4-6) 12/28/24 14:00 12/29/24 13:56 DC 12/29/24 11:05 25 MG Tramadol HCl (UltRAM) 50 mg Q6H PRN PO SEVERE PAIN (7-10) 12/28/24 14:00 12/29/24 13:56 DC Vasopressin 20 units/Sodium Chloride 100 ml @ 0 mls/hr PROTOCOL IV 12/30/24 15:30 01/29/25 15:29 12/31/24 10:40 6 MLS/HR LABORATORY: [ ] Hematology Labs: Test 01/06/25 03:47 Range/Units White Blood Count 9.8 4.8-10.8 K/uL Red Blood Count 4.19 L 4.50-6.20 MIL/uL Hemoglobin 10.8 L 14.0-18.0 g/dL Hematocrit 34.3 L 42-54 % Mean Corpuscular Volume 81.9 79-99 fL Mean Corpuscular Hemoglobin 25.8 L 27.0-33.0 pg Mean Corpuscular Hemoglobin Concent 31.5 L 32.0-36.0 g/dL Red Cell Distribution Width 25.2 H 11.0-15.5 % Platelet Count 221 130-400 K/uL Mean Platelet Volume 7.5-10.5 fL Immature Granulocyte % (Auto) 1.6 H 0-1 % Neutrophils (%) (Auto) 71.2 40.0-77.0 % Lymphocytes (%) (Auto) 16.4 L 21.0-51.0 % Monocytes (%) (Auto) 7.3 3.0-13.0 % Eosinophils (%) (Auto) 3.2 0.0-8.0 % Basophils (%) (Auto) 0.3 0.0-5.0 % Neutrophils # (Auto) 7.0 1.8-7.7 K/uL Lymphocytes # (Auto) 1.6 1.0-4.8 K/uL Monocytes # (Auto) 0.7 0.1-1.0 K/uL Eosinophils # (Auto) 0.31 0.00-0.70 K/uL Basophils # (Auto) 0.03 0.00-0.20 K/uL Absolute Immature Granulocyte (auto 0.16 0-1 K/uL Nucleated Red Blood Cells 3.0 H 0.0-0.19 % Chemistry Labs: Test 01/06/25 03:47 Range/Units Sodium Level 140 136-145 mmol/L Potassium Level 3.3 L 3.5-5.1 mmol/L Chloride Level 99 L 101-111 mmol/L Carbon Dioxide Level 25 21-32 mmol/L Blood Urea Nitrogen 97 *H 7-18 mg/dL Creatinine 8.3 *H 0.5-1.3 mg/dL Glomerular Filtration Rate Calc 7 >90 mL/min Random Glucose 96 70-105 mg/dL Total Calcium 8.2 L 8.5-10.1 mg/dL Phosphorus Level 7.1 H 2.5-4.9 mg/dL Magnesium Level 2.20 1.80-2.40 mg/dL Coagulation Labs: Test 01/06/25 07:44 Range/Units Activated Partial Thromboplast Time 49.3 H 26.3-35.5 SEC DIAGNOSTICS / RADIOLOGY: ASSESSMENT: Acute renal failure Multiple electrolyte problems. CABG. Underlying anemia. Multiple other comorbidities including coronary artery disease, CABG, previous ND, hypertension, anemia PLAN: Labs, diagnostic, radiologic exams reviewed and interpreted by myself and supervising physician. We have reviewed external records in detail There is no need for emergent renal replacement therapy. Potassium replacement has been ordered. Order repeat UA Require close monitoring of renal function and electrolytes Order CBC, CMP, and electrolytes in am Continue with antibiotics BiPAP as necessary, for respiratory distress IV pressors as needed Monitor blood pressure adjust medication doses as needed Avoid hypotensive episodes May use Dilaudid 0.5 mg IV every 6 hours as needed for severe pain Monitor blood sugars Strict intake, output, and daily weight should be monitored Please renally adjust medications Avoid nephrotoxic and nonsteroidal drugs Avoid contrast if possible Will continue to monitor renal function, anemia, electrolytes Treatment plan discussed with patient Questions were answered We have discussed with the other team physicians in detail about the care plan We will continue to monitor the patient closely Total critical care time spent with patient, nursing staff, critical care team over 35 minutes ATTESTATION BY PHYSICIAN I have seen and examined the patient. I reviewed the documentation, medical decision making, and treatment plan as noted by the mid-level provider above. I agree with the findings and plan of care. FREDDY KENT MD, [facility] Jan 06, 2025 16:56
--- NOTE | 2025-01-06 22:34 | PN ---
[facility] PROGRESS NOTE Date Patient Seen: Jan 06, 2025 Time of Visit: 22:28 Supervising Physician: John Jane MD Primary Care Physician: Joe Felton D.O. Outpatient Specialists: [ ] Inpatient Consults: CK Mcnair, Radha Swartz, Dr Guzman Attending: Festus Tovar MD PROBLEM LIST: CAD post CABG 12/28/2024 Acute left lower extremity ischemia Left LE Arterial occlusion S/P removal of IABP and thrombectomy LE 12/31/24 Acute on chronic combined heart failure with reduced EF of 25-30%, improving Cardiorenal syndrome Acute renal failure Non-STEMI POA Hypertension Anemia INTERVAL HISTORY: No major overnight events. Patient continues on Lasix drip at 5 milligrams/hour, dobutamine at 1 mcg/kg per minute and argatroban drip. He remains hemodynamically a 7% on only 2 L via nasal cannula, afebrile T-max of 99 in the last 24 hours. Urine output 2 L with a chest tube drained 260ml. X2 BMs today. CBC unremarkable similar to yesterday. Creatinine worsening today 8.3 with a BUN of 97 and a GFR of seven potassium is slightly low 3.3 chloride of 99. , No chest x-ray for today we will order one for in the morning drip Patient denies any chest pain at this time continues with the occasional tenderness to midsternal incision line with coughing and movement. Left foot continues ischemic with discoloration. Nitroglycerin paste in place. Nurses are following wound care per Dr. Persaud recommendations. We will continue to follow CV surgery recommendations. REVIEW OF SYSTEMS: General: No malaise or fever. Neurological: No fainting episodes or seizures. HEENT: No nasal congestion or nasal secretion. Respiratory: No cough, shortness of breath, or wheezing Cardiac: No chest pain or palpitations. midsternal incision line tenderness Gastrointestinal: No vomiting or diarrhea. Genitourinary: No dysuria hematuria. Skin: No rashes or lesions. Hematological: No bruises or bleeding.+ lt foot pain Musculoskeletal: No joint pains or arthralgias. Psychiatric: No depression or panic attacks. PHYSICAL EXAM: GENERAL: Awake alert and oriented x2 HEENT: EOMI, Sclera non icteric, moist mucosa NECK: Supple, no JVD, trachea midline LUNGS: Chest tubes in place, HEART: Regular rate and rhythm. Normal S1 and S2, without murmurs ABD: Abdomen soft, nontender. Bowel sounds present EXT: No clubbing cyanosis or edema NEURO: GCS of 14 no focal weakness. Vital Signs (last 8hr) Date Time Temp Pulse Resp B/P (MAP) Pulse Ox O2 Delivery O2 Flow Rate FiO2 01/06/25 21:00 89 28 138/91 (107) 97 28 01/06/25 20:30 92 38 154/95 (114) 99 01/06/25 20:00 93 37 147/103 (118) 99 28 01/06/25 20:00 98.8 Nasal Cannula 2.0 28 01/06/25 19:30 92 32 158/101 (120) 99 01/06/25 19:00 92 44 140/106 (117) 98 28 01/06/25 18:57 91 18 N/A Room Air 21 01/06/25 18:52 90 18 01/06/25 18:30 86 41 132/78 (96) 98 01/06/25 18:00 89 24 147/101 (116) 98 21 01/06/25 17:00 88 31 139/86 (103) 96 01/06/25 16:30 98 Room Air* 0 21 01/06/25 16:27 98.4 01/06/25 16:00 88 15 151/89 (109) 98 21 01/06/25 15:00 89 24 156/93 (114) 97 21 LABS: Hematology Labs: Test 01/06/25 03:47 Range/Units White Blood Count 9.8 4.8-10.8 K/uL Red Blood Count 4.19 L 4.50-6.20 MIL/uL Hemoglobin 10.8 L 14.0-18.0 g/dL Hematocrit 34.3 L 42-54 % Mean Corpuscular Volume 81.9 79-99 fL Mean Corpuscular Hemoglobin 25.8 L 27.0-33.0 pg Mean Corpuscular Hemoglobin Concent 31.5 L 32.0-36.0 g/dL Red Cell Distribution Width 25.2 H 11.0-15.5 % Platelet Count 221 130-400 K/uL Mean Platelet Volume 7.5-10.5 fL Immature Granulocyte % (Auto) 1.6 H 0-1 % Neutrophils (%) (Auto) 71.2 40.0-77.0 % Lymphocytes (%) (Auto) 16.4 L 21.0-51.0 % Monocytes (%) (Auto) 7.3 3.0-13.0 % Eosinophils (%) (Auto) 3.2 0.0-8.0 % Basophils (%) (Auto) 0.3 0.0-5.0 % Neutrophils # (Auto) 7.0 1.8-7.7 K/uL Lymphocytes # (Auto) 1.6 1.0-4.8 K/uL Monocytes # (Auto) 0.7 0.1-1.0 K/uL Eosinophils # (Auto) 0.31 0.00-0.70 K/uL Basophils # (Auto) 0.03 0.00-0.20 K/uL Absolute Immature Granulocyte (auto 0.16 0-1 K/uL Nucleated Red Blood Cells 3.0 H 0.0-0.19 % Chemistry Labs: Test 01/06/25 19:48 01/06/25 03:47 Range/Units Magnesium Level 2.30 1.80-2.40 mg/dL Sodium Level 140 136-145 mmol/L Potassium Level 3.3 L 3.5-5.1 mmol/L Chloride Level 99 L 101-111 mmol/L Carbon Dioxide Level 25 21-32 mmol/L Blood Urea Nitrogen 97 *H 7-18 mg/dL Creatinine 8.3 *H 0.5-1.3 mg/dL Glomerular Filtration Rate Calc 7 >90 mL/min Random Glucose 96 70-105 mg/dL Total Calcium 8.2 L 8.5-10.1 mg/dL Phosphorus Level 7.1 H 2.5-4.9 mg/dL Coagulation Labs: Test 01/06/25 16:48 Range/Units Activated Partial Thromboplast Time 49.0 H 26.3-35.5 SEC DIAGNOSTICS / RADIOLOGY RESULTS: [ ] PLAN Continue PT continue IS Continue follow Cardiothoracic Surgeons postop protocol Neurovascular checks to lower extremities Monitor for bleeding Electrolyte protocol Daily labs and chest x-rays in a.m. PT/OT when able Follow cardiology recs Follow nephrology recs Follow GI recs Follow up Podiatry recommendations NEURO: Minimize central acting medications as possible. Fall Precautions. Well lighted room through the day and minimize interruptions through the night to prevent acute delirium. PULMONARY: Supplemental 02 as needed Titrate Fio2 to keep Spo2 > or = 90% DuoNebs and CPT as needed IS hourly while awake for pulmonary hygiene Out of bed to chair as tolerated CARDIOVASCULAR: Follow hemodynamics. Titrate vasopressor to keep MAP >65 or systolic blood pressure >95mmHg DRIPS: Lasix Dobutamine LINES: RT IJ CVC GI & NUTRITION: Continue nutritional support Aspirations precautions Prokinetic agents and laxatives as needed KIDNEYS & ELECTROLYTES: Strict monitoring of intake and output Daily weights Avoid nephrotoxic agents Monitor electrolytes and replace as needed Goal urine output of 30mL/hr or 0.5mL/kg/hr ENDOCRINE: Maintain blood glucose between 100-180 at all times. Insulin sliding scale for blood glucose management INFECTIOUS DISEASE: Trend temperature. Quiñones-culture if febrile. Micro: [ ] Antibiotics: Zosyn HEMATOLOGY & COAGULATION: Monitor H&H. Keep Hgb > 7 Transfuse 1 unit of PRBC for Hgb < 7 Transfuse 1 pack of platelets of platelets < 20, 000 Watch for any signs and symptoms of bleeding SKIN: Pressure ulcer prevention per facility protocol Rehab: PT/OT Prophylaxis: GI: Pepcid DVT: per CV surgery Code Status: Full Resuscitation Disposition: ICU Other: Total patient Critical Care time 35 minutes, time excluded any procedures. Case was discussed and seen with my supervising physician. The above plan was formulated and agreed upon. ATTESTATION BY PHYSICIAN I have evaluated the patient chart, medical records, and spoke with appropriate staff. I reviewed the documentation, medical decision making, and treatment plan as noted by the mid-level provider above. I agree with the findings and plan of care. John Jane MD, [facility] Jan 06, 2025 22:34
[2025-01-07] VITALS (58 sets, daily range): BP systolic 3–175; BP diastolic 2–98; PULSE 78–95; RESP 13–60; TEMP 98.1–99; O2SAT 97–100
[2025-01-07 03:48] LABS: IMMATURE GRANULOCYTE ABSOLUTE 0.13 K/uL (0-1); NUCLEATED RED BLOOD CELLS 1.4 % (0.0-0.19); PLATELET COUNT (AUTO) 213 K/uL (130-400); RED BLOOD CELL COUNT(AUTO) 3.90 MIL/uL (4.50-6.20); RED CELL DISTRIBUTION WIDTH 25.8 % (11.0-15.5); WHITE BLOOD COUNT (AUTO) 9.1 K/uL (4.8-10.8)
[2025-01-07 04:14] LABS: ASPARTATE AMINOTRANSFERASE 69.0 U/L (10-37); CREATININE 7.9 mg/dL (0.5-1.3); GLOMERULAR FILTR. RATE CALC 7.0 mL/min (>90); GLUCOSE,RANDOM 103.0 mg/dL (70-105); PHOSPHORUS 6.8 mg/dL (2.5-4.9); SODIUM SERUM 138.0 mmol/L (136-145); TOTAL PROTEIN, SERUM 6.0 g/dL (6.0-8.3)
[2025-01-07 04:31] LABS: UREA NITROGEN, BLOOD 94.0 mg/dL (7-18)
--- NOTE | 2025-01-07 09:06 | PN ---
[facility] CARDIOLOGY PROGRESS NOTE Cardiology progress note dictated for Macey Nur MD Date Patient Seen: Jan 07, 2025 Problem List: ACSNSTEMI MVCAD LLE ALI status post thrombectomy and removal of IABP 12/31 Acute renal failure New onset atrial fibrillation, 1 hour duration (01/04) Interval History: s/p CABG s/p LLE femoral thrombectomy Argatroban since 12/31 - The patient whispers to endorse shortness of breath, a productive cough, palpitations, and sternal discomfort with coughing. Is maintained on Nitroglycerin, Lasix, and Argatroban infusions. Negative urine output of 1789 mL. Chest x-ray today is pending. Creatinine of 7.9. Per nephrology, there was no need for emergent renal replacement therapy. Physical Examination: GENERAL: No acute distress. NECK: R CVC LUNGS: diminished inspiratory effort. No wheezes, or rhonchi. HEART: Normal rate and rhythm. Normal S1 and S2 without murmurs, gallop or rub. VASC: Peripheral pulses +1 bilaterally. blistering to distal left foot with ec chymoses to distal digits ABD: soft, nontender. Mediastinal CT draining serosanguineous fluid. SKIN: Left lower extremity in walking boot, ecchymosis, blistering and blackened discoloration to LLE distal digits. sensation and motor intact NEURO: Awake, alert, moves all extremities. Laboratory: Hematology Labs: Test 01/07/25 03:32 Range/Units White Blood Count 9.1 4.8-10.8 K/uL Red Blood Count 3.90 L 4.50-6.20 MIL/uL Hemoglobin 10.2 L 14.0-18.0 g/dL Hematocrit 32.5 L 42-54 % Mean Corpuscular Volume 83.3 79-99 fL Mean Corpuscular Hemoglobin 26.2 L 27.0-33.0 pg Mean Corpuscular Hemoglobin Concent 31.4 L 32.0-36.0 g/dL Red Cell Distribution Width 25.8 H 11.0-15.5 % Platelet Count 213 130-400 K/uL Mean Platelet Volume 10.4 7.5-10.5 fL Immature Granulocyte % (Auto) 1.4 H 0-1 % Neutrophils (%) (Auto) 69.7 40.0-77.0 % Lymphocytes (%) (Auto) 17.5 L 21.0-51.0 % Monocytes (%) (Auto) 7.8 3.0-13.0 % Eosinophils (%) (Auto) 3.3 0.0-8.0 % Basophils (%) (Auto) 0.3 0.0-5.0 % Neutrophils # (Auto) 6.4 1.8-7.7 K/uL Lymphocytes # (Auto) 1.6 1.0-4.8 K/uL Monocytes # (Auto) 0.7 0.1-1.0 K/uL Eosinophils # (Auto) 0.30 0.00-0.70 K/uL Basophils # (Auto) 0.03 0.00-0.20 K/uL Absolute Immature Granulocyte (auto 0.13 0-1 K/uL Nucleated Red Blood Cells 1.4 H 0.0-0.19 % Chemistry Labs: Test 01/07/25 03:32 Range/Units Sodium Level 138 136-145 mmol/L Potassium Level 3.6 3.5-5.1 mmol/L Chloride Level 99 L 101-111 mmol/L Carbon Dioxide Level 27 21-32 mmol/L Blood Urea Nitrogen 94 *H 7-18 mg/dL Creatinine 7.9 H 0.5-1.3 mg/dL Glomerular Filtration Rate Calc 7 >90 mL/min Random Glucose 103 70-105 mg/dL Total Calcium 8.3 L 8.5-10.1 mg/dL Phosphorus Level 6.8 H 2.5-4.9 mg/dL Magnesium Level 2.10 1.80-2.40 mg/dL Total Bilirubin 0.7 0.2-1.0 mg/dL Aspartate Amino Transf (AST/SGOT) 69 H 10-37 U/L Alanine Aminotransferase (ALT/SGPT) 22 12-78 U/L Alkaline Phosphatase 116 50-136 U/L Total Protein 6.0 6.0-8.3 g/dL Albumin 1.8 L 3.5-5.0 g/dL Coagulation Labs: Test 01/07/25 08:09 Range/Units Activated Partial Thromboplast Time 55.3 H 26.3-35.5 SEC Diagnostics / Radiology: Impression and Plan: ACS-NSTEMI MVCAD s/p CABG with VG-RCA, VG-OM, TORRES-LAD and VG-distal LAD LLE ALI while IABP in place, status post femoral thrombectomy, placed on argatroban. Arterial duplex shows multi/biphasic waveforms to LLE. Post operative hypotension New onset atrial fibrillation with rapid ventricular response, converted. hx Hypertension ICMP LVEF 45-50 Anemia, stable. Acute renal failure Continue Aspirin and Atorvastatin Resume DAPT prior to discharge due to ACS-NSTEMI on presentation; however, for recurrence of atrial fibrillation, we will need to discuss candidacy for therapeutic anticoagulation. Continue Amiodarone 100mg daily. CHF GDMT: Continue increased dose of metoprolol tartrate 50mg bid. Optimization is limited due to impaired renal function. Defer Lasix gtt to nephrology and CTS. He may need HD. Encouraged use of IS, currently reaching 500mls. Wean nitroglycerin gtt [facility] Jan 07, 2025 09:05 MACEY NUR DO Jan 08, 2025 11:02
--- NOTE | 2025-01-07 10:21 | PN ---
NEPHROLOGY PROGRESS NOTE Date/Time Patient Seen: Jan 07, 2025 SUBJECTIVE: The patient is doing poorly. This patient has renal failure, which is worsening. The patient has coronary artery disease and CABG. The patient also has atrial fibrillation episode. The patient has been on diuretics as per surgical team. His urine output though has been maintained, but creatinine has been getting worse. Continues on Lasix drip Urine output was noted He is renal function continues to improve Lower extremity edema is improving He was seen in the ICU , in no acute distress REVIEW OF SYSTEMS: GENERAL: Negative for any nausea, vomiting, fevers, chills, or weight loss. NEUROLOGIC: Negative for any blurry vision, blind spots, double vision, facial asymmetry, dysphagia, dysarthria, hemiparesis, hemisensory deficits, vertigo, ataxia. HEENT: Negative for any head trauma, neck trauma, neck stiffness, photophobia, phonophobia, sinusitis, rhinitis. CARDIAC: Negative for any chest pain, dyspnea on exertion, paroxysmal nocturnal dyspnea, peripheral edema. PULMONARY: Negative for any shortness of breath, wheezing, COPD, or TB exposure. GASTROINTESTINAL: Negative for any abdominal pain, nausea, vomiting, bright red blood per rectum, melena. GENITOURINARY: Negative for any dysuria, hematuria, incontinence. INTEGUMENTARY: Negative for any rashes, cuts, insect bites. RHEUMATOLOGIC: Negative for any joint pains, photosensitive rashes, history of vasculitis or kidney problems. HEMATOLOGIC: Negative for any abnormal bruising, frequent infections or bleeding. Vital Signs (last 8hr) Date Time Temp Pulse Resp B/P (MAP) Pulse Ox O2 Delivery O2 Flow Rate FiO2 01/07/25 09:00 95 35 112/78 (89) 97 21 112/47 (68) 01/07/25 08:04 98.4 01/07/25 08:00 95 23 128/86 (100) 97 21 119/74 (89) 01/07/25 08:00 97 Room Air* 0 21 01/07/25 07:00 90 38 126/89 (101) 99 21 144/76 (98) 01/07/25 06:30 91 24 130/89 (103) 100 135/90 (105) 01/07/25 06:25 95 20 01/07/25 06:19 95 20 N/Cannula Low lpm 2.0 28 01/07/25 06:00 92 29 131/96 (108) 97 28 151/94 (113) 01/07/25 05:30 91 29 134/91 (105) 98 143/92 (109) 01/07/25 05:00 89 27 91/77 (82) 98 124/89 (101) 01/07/25 04:30 88 27 91/72 (78) 98 151/98 (115) 01/07/25 04:12 98.8 Nasal Cannula 2.0 28 01/07/25 04:07 99 Nasal Cannula* 2 28 01/07/25 04:00 88 24 95/79 (84) 100 28 133/82 (99) 01/07/25 03:30 90 30 105/91 (96) 99 149/95 (113) 01/07/25 03:00 89 45 129/88 (102) 98 01/07/25 02:30 91 32 133/88 (103) 97 PHYSICAL EXAM: GENERAL: Alert and oriented x 3. No acute distress. Well-nourished. EYES: EOMI. Anicteric. HENT: Moist mucous membranes. No scleral icterus. No cervical lymphadenopathy. LUNGS: Clear to auscultation bilaterally. No accessory muscle use. CARDIOVASCULAR: Regular rate and rhythm. No murmur. No JVD. ABDOMEN: Soft, non-tender and non-distended. No palpable masses. EXTREMITIES: No edema. Non-tender. SKIN: No rashes or lesions. Warm. NEUROLOGIC: No focal neurological deficits. CN II-XII grossly intact, but not individually tested. PSYCHIATRIC: Cooperative. Appropriate mood and affect. Current Medications Medications (Trade) Dose Ordered Sig/Mila Route PRN Reason Start Time Stop Time Status Last Admin Dose Admin Acetaminophen (TYLenol 325MG TAB) 650 mg Q4H PRN PO Temp >38.3C(AFTER EXTUBATION) 12/28/24 14:00 01/27/25 13:59 Acetaminophen (TYLenol 325MG TAB) 650 mg Q6H PRN PO MILD PAIN (1-3) 12/24/24 01:30 12/28/24 13:57 DC 12/27/24 23:45 650 MG Acetaminophen (TYLenol 325MG TAB) 650 mg Q6H PRN PO TEMPERATURE GREATER THAN 101.5 12/24/24 03:00 12/28/24 14:10 DC Acetaminophen (TYLenol 325MG TAB) 650 mg Q6H PRN PO MILD PAIN (1-3) 12/28/24 14:00 01/27/25 13:59 01/05/25 20:03 650 MG Acetaminophen (TYLenol 650MG SUPPOSITORY) 650 mg Q4H PRN RC Temp >38.3C WHILE INTUBATED 12/28/24 14:00 01/27/25 13:59 Acetaminophen (acetaMINOPHEN) 1,000 mg Q6H6 IV 12/28/24 18:00 12/29/24 17:59 DC 12/29/24 17:27 1,000 MG Acetaminophen (acetaMINOPHEN) 1,000 mg Q6H6 IVPB 12/30/24 00:00 12/31/24 20:14 DC 12/30/24 18:16 1,000 MG Albumin Human 250 ml @ 0 mls/hr AD PRN IV IF HEMODYNAMICALLY UNSTABLE 12/28/24 14:00 12/29/24 09:28 DC 12/29/24 09:28 250 MLS/HR Albuterol (DUOneb) 1 UDVIAL [id number] IH 01/01/25 18:00 01/01/25 15:25 DC Albuterol Sulfate (Proventil 0.083% 2.5mg/3ml) 2.5 mg ONCE STAT IH 12/30/24 10:22 12/30/24 10:32 DC 12/30/24 10:43 2.5 MG Aminocaproic Acid 21424 mg/Sodium Chloride 310 ml @ 25 mls/hr AD IV 12/28/24 14:00 12/28/24 14:14 DC Aminocaproic Acid 34672 mg/Sodium Chloride 480 ml @ 0 mls/hr AD PRN IV BLEEDING CONTROL 12/27/24 11:00 01/26/25 10:59 Amiodarone HCl (pacERONE 200MG) 200 mg DAILY PO 01/05/25 09:00 02/04/25 08:59 01/06/25 10:47 200 MG Amiodarone HCl 150 mg/Dextrose 103 ml @ 618 mls/hr ONCE IV 01/04/25 06:30 01/04/25 06:21 DC Amiodarone HCl 360 mg/Dextrose 207.2 ml @ 33.3 mls/hr AD IV 01/04/25 06:30 01/04/25 06:21 DC Amiodarone HCl 540 mg/Dextrose 310.8 ml @ 16.7 mls/hr [id number] IV 01/04/25 06:30 02/03/25 06:29 01/04/25 13:01 16.7 MLS/HR Argatroban 250 mg/ Sodium Chloride 250 ml @ 0 mls/hr PROTOCOL IV 12/31/24 16:30 01/30/25 16:29 12/31/24 22:32 2.61 MLS/HR Aspirin (Aspirin 81mg Ec Tab) 81 mg DAILY PO 12/24/24 09:00 01/23/25 08:59 01/06/25 09:27 81 MG Atorvastatin Calcium (LIPItor 40MG) 40 mg HS PO 12/24/24 21:00 01/01/25 11:16 DC 12/31/24 20:44 40 MG Benzocaine (Cepacol Sore Throat Lozenge) 1 each Q4H PRN MM SORE THROAT 01/03/25 13:30 02/02/25 13:29 01/06/25 11:16 1 EACH Bisacodyl (DulcoLAX) 10 mg DAILY PRN RC CONSTIPATION - MOM INEFFECTIVE 12/29/24 14:00 01/28/25 13:59 12/30/24 11:05 10 MG Calcium Gluconate 1 gm/Sodium Chloride 60 ml @ 200 mls/hr AD PRN IV HYPOCALCEMIA 12/28/24 14:00 01/27/25 13:59 01/01/25 01:52 200 MLS/HR Cefazolin Sodium (ANCEF 1 gm vial) 2 gm ONCALL IVP 12/26/24 16:30 12/26/24 16:28 DC Cefazolin Sodium (Ancef) 2 gm ONCALL PRN IVP SURGERY 12/26/24 16:30 12/28/24 13:57 DC Cefazolin Sodium (Ancef) 2 gm Q8H IVPB 12/28/24 19:00 12/29/24 11:01 DC 12/29/24 11:04 2 GM Dexmedetomidine/ Sodium Chloride (PRECEdex 400MCG/ 100ML-NS) 400 mcg PROTOCOL IV 12/28/24 14:00 12/29/24 13:59 DC 12/29/24 12:16 400 MCG Dexmedetomidine/ Sodium Chloride (PRECEdex 400MCG/ 100ML-NS) 400 mcg PROTOCOL IV 12/29/24 18:00 01/28/25 17:59 12/31/24 06:05 400 MCG Dextrose (D50w) 50 ml AD PRN IV HYPOGLYCEMIA PROTOCOL 12/28/24 14:00 01/27/25 13:59 Dextrose (D50w) 50 ml ONCE STAT IV 12/30/24 11:36 12/30/24 11:39 DC 12/30/24 11:45 50 ML Dextrose/Sodium Chloride 1,000 ml @ 50 mls/hr Q20H IV 12/30/24 11:30 01/01/25 16:17 DC 01/01/25 02:09 50 MLS/HR Dobutamine HCl/ Dextrose 250 ml @ 0 mls/hr PROTOCOL IV 12/29/24 14:00 01/28/25 13:59 01/05/25 08:48 4.1 MLS/HR Docusate Sodium (COLace 100MG CAP) 100 mg BID PO 12/28/24 21:00 12/29/24 08:01 DC 12/28/24 20:53 100 MG Docusate Sodium (COLace LIQUID 100MG/10ML) 100 mg BID PO 12/29/24 08:00 01/28/25 07:59 01/06/25 09:27 100 MG Enoxaparin Sodium (Lovenox) 30 mg DAILY SQ 12/31/24 09:00 12/31/24 16:12 DC Epinephrine HCl 10 mg/Sodium Chloride 250 ml @ 0 mls/hr AD PRN IV TITRATE 12/27/24 11:00 01/26/25 10:59 12/30/24 04:29 0 MLS/HR Epinephrine HCl 10 mg/Sodium Chloride 250 ml @ 0 mls/hr AD PRN IV POST-OP CARDIOVASCULAR ORDERS 12/28/24 14:00 12/28/24 14:14 DC Famotidine (Pepcid 20mg Vial) 20 mg BID IV 12/28/24 21:00 12/31/24 20:20 DC 12/31/24 08:51 20 MG Famotidine (Pepcid 20mg Vial) 20 mg Q48H IV 01/02/25 09:00 01/02/25 04:51 DC Famotidine (Pepcid 20mg Tab) 20 mg DAILY PO 12/24/24 09:00 12/28/24 13:54 DC 12/26/24 10:19 20 MG Furosemide (LASix 20MG TAB) 20 mg Q12H PO 12/30/24 09:00 12/30/24 08:34 DC Furosemide (LASix 20MG VIAL) 20 mg Q12H IV 12/29/24 09:00 12/30/24 08:34 DC 12/29/24 09:20 20 MG Furosemide 100 mg/ Sodium Chloride 100 ml @ 0 mls/hr PROTOCOL IV 12/29/24 14:30 01/28/25 14:29 01/03/25 16:54 2.5 MLS/HR Glucagon (Glucagon 1mg Kit) 1 mg AD PRN IM HYPOGLYCEMIA PROTOCOL 12/28/24 14:00 01/27/25 13:59 Guaifenesin/ Dextromethorphan (RobiTUSSin DM 200/20MG 10ML) 10 ml Q4H PRN PO COUGH 01/03/25 16:30 02/02/25 16:29 01/04/25 15:44 10 ML Heparin Sodium (Porcine) (HEParin 5,000 UNIT VIAL) *calculation based on ACTUAL B... AD PRN IV HEPARIN PROTOCOL 12/24/24 02:30 12/28/24 13:54 DC 12/24/24 17:32 5,000 UNIT Heparin Sodium/ Dextrose 250 ml @ 0 mls/hr Q6H IV 12/24/24 02:30 12/28/24 13:54 DC 12/27/24 17:04 11.3 MLS/HR Hydralazine HCl (APRESOLine 20MG INJ) 10 mg Q6H PRN IV For:SBP above 160;DBP above 90 12/24/24 03:00 12/28/24 13:54 DC Insulin Human Regular (humuLIN R 100 UNIT/ML 3ML) 10 unit ONCE STAT IV 12/30/24 11:42 12/30/24 11:45 DC 12/30/24 12:01 10 UNIT Insulin Human Regular (humuLIN R 100 UNIT/ML 3ML) 10 unit ONCE STAT SQ 12/30/24 11:36 12/30/24 11:43 DC Insulin Human Regular 100 unit/ Sodium Chloride 100 ml @ 0 mls/hr AD IV 12/28/24 14:00 12/29/24 17:55 DC 12/28/24 17:09 5 MLS/HR Ipratropium [place] (AtrovENT UD) 0.5 mg [id number] IH 12/30/24 12:00 01/29/25 11:59 01/06/25 12:01 0.5 MG Lactulose (Constulose 20gm/ 30ml Udcup) 20 gm BID PRN PO CONSTIPATION 12/24/24 03:00 12/28/24 13:54 DC 12/26/24 21:30 20 GM Lactulose (Constulose 20gm/ 30ml Udcup) 20 gm BID PRN PO CONSTIPATION 12/28/24 14:00 01/27/25 13:59 12/30/24 07:50 20 GM Lidocaine HCl/ Dextrose 250 ml @ 0 mls/hr AD PRN IV TITRATE 12/28/24 22:30 12/29/24 16:00 DC 12/29/24 06:53 15 MLS/HR Magnesium Hydroxide (Milk Of Magnesium 30ml) 30 ml DAILY PRN PO CONSTIPATION 12/28/24 14:00 01/27/25 13:59 12/30/24 10:18 30 ML Magnesium Sulfate 50 ml @ 12.5 mls/hr AD PRN IV MAG LEVEL LESS THAN 2.0 12/28/24 14:00 01/27/25 13:59 12/28/24 18:42 12.5 MLS/HR Magnesium Sulfate 50 ml @ 0 mls/hr PROTOCOL PRN IV MAGNESIUM PROTOCOL 12/26/24 15:00 12/28/24 14:10 DC Metolazone (zarOXOlyn) 5 mg ONCE PO 12/31/24 12:00 12/31/24 20:18 DC 12/31/24 12:01 5 MG Metolazone (zarOXOlyn) 5 mg ONCE PO 01/01/25 16:30 01/02/25 16:29 DC 01/01/25 16:53 5 MG Metoprolol Tartrate (loprESSOR) 12.5 mg BID PO 12/30/24 09:00 01/04/25 08:51 DC 01/03/25 20:09 12.5 MG Metoprolol Tartrate (loprESSOR) 25 mg BID PO 12/25/24 21:00 12/28/24 13:54 DC 12/28/24 09:28 25 MG Metoprolol Tartrate (loprESSOR) 25 mg TID PO 01/04/25 09:00 01/06/25 13:08 DC 01/06/25 09:27 25 MG Metoprolol Tartrate (loprESSOR) 50 mg BID PO 01/06/25 21:00 02/05/25 20:59 Morphine Sulfate (morPHINE 2MG SYG) 0.5 mg Q2H PRN IV MODERATE PAIN (4-6) 12/28/24 14:00 12/29/24 13:59 DC Morphine Sulfate (morPHINE 2MG SYG) 1 mg Q2H PRN IV SEVERE PAIN (7-10) 12/28/24 14:00 12/29/24 13:59 DC 12/28/24 17:05 1 MG Morphine Sulfate (morPHINE 2MG SYG) 2 mg Q4H PRN IVP SEVERE PAIN (7-10) 12/24/24 03:00 12/28/24 13:54 DC 12/26/24 02:43 2 MG Nitroglycerin (Nitroglycerin 1gm Oint) 0.5 inch Q8H5 TD 12/24/24 01:30 12/28/24 13:54 DC 12/27/24 12:57 0.5 INCH Nitroglycerin (Nitroglycerin 1gm Oint) 1 inch Q8H TD 01/04/25 15:00 02/03/25 14:59 01/06/25 15:40 1 INCH Nitroglycerin/ Dextrose 0 ml @ 0 mls/hr AD IV 12/28/24 14:00 12/31/24 14:00 DC Nitroglycerin/ Dextrose 0 ml @ 0 mls/hr AD PRN IV TITRATE 01/01/25 06:30 01/31/25 06:29 01/05/25 20:54 12 MLS/HR Norepinephrine Bitartrate 250 ml @ 0 mls/hr AD PRN IV TITRATE 12/27/24 11:00 01/26/25 10:59 01/04/25 06:14 0 MLS/HR Norepinephrine Bitartrate 8 mg/ Dextrose 250 ml @ 0 mls/hr AD PRN IV POST-OP CARDIOVASCULAR ORDERS 12/28/24 14:00 12/28/24 14:14 DC Ondansetron HCl (zoFRAN 4MG INJ) 4 mg Q6H PRN IV NAUSEA/VOMITING 12/24/24 03:00 12/28/24 13:54 DC Ondansetron HCl (zoFRAN 4MG INJ) 4 mg Q6H PRN IV NAUSEA/VOMITING 12/28/24 14:00 01/27/25 13:59 12/30/24 11:01 4 MG Pantoprazole Sodium (PROTonix 40MG INJ) 40 mg BID IVP 01/05/25 09:00 02/04/25 08:59 01/06/25 09:27 40 MG Pantoprazole Sodium (PROTonix 40MG INJ) 40 mg Q12H IVP 01/02/25 05:00 01/05/25 04:04 DC 01/04/25 16:00 40 MG Phenol (Sore Throat [place]) 1 SPRAY Q4H PRN PO SORE THROAT 01/06/25 10:30 02/05/25 10:29 01/06/25 16:37 1 SPRY Piperacillin Sod/ Tazobactam Sod (Zosyn 3.375gm+NS 50ml) 3.375 gm Q12H IV 12/30/24 15:30 01/05/25 04:05 DC 01/04/25 14:38 3.375 GM Piperacillin Sod/ Tazobactam Sod (Zosyn 3.375gm+NS 50ml) 3.375 gm Q12H IV 01/05/25 09:00 01/09/25 08:59 01/06/25 09:27 3.375 GM Potassium Phosphate 250 ml @ 42 mls/hr AD PRN IV LOW PHOS LEVEL 12/28/24 14:00 01/27/25 13:59 12/29/24 06:12 42 MLS/HR Potassium Chloride 100 ml @ 100 mls/hr AD PRN IV POTASSIUM PROTOCOL 12/26/24 15:00 12/28/24 13:54 DC Potassium Chloride 100 ml @ 100 mls/hr AD PRN IV HYPOKALEMIA 12/28/24 14:00 01/27/25 13:59 01/05/25 16:19 100 MLS/HR Potassium Chloride (K-Dur/Klor-Con 20meq) 20 meq AD PRN PO POTASSIUM PROTOCOL 12/26/24 15:00 12/28/24 13:54 DC 12/26/24 18:27 20 MEQ Potassium Chloride (KCl 10% Elixir 20meq/15ml) 20 meq AD PRN PO POTASSIUM PROTOCOL 12/26/24 15:00 12/28/24 13:54 DC Propofol 100 ml @ 0 mls/hr AD PRN IV SEDATION 12/28/24 14:00 01/01/25 13:59 DC Sodium Polystyrene Sulfonate (kayEXALate 15 GM/60 ML) 30 gm ONCE STAT PO 12/30/24 11:36 12/30/24 11:39 DC 12/30/24 11:45 30 GM Sodium Bicarbonate (Sodium Bicarb 50meq 50ml Vial) 50 meq AD PRN IV OTHER[SEE DOSING INSTRUCTIONS] 12/28/24 14:00 12/31/24 14:00 DC 12/30/24 12:45 100 MEQ Sodium Chloride 500 ml @ 0 mls/hr AD IV 12/28/24 14:00 01/27/25 13:59 Sodium Chloride 1,000 ml @ 10 mls/hr ONCE IV 12/28/24 14:00 12/29/24 13:59 DC 12/28/24 17:06 10 MLS/HR Sodium Chloride (NS Flush 10ml) 10 ml Q8H PRN IVP IV LINE FLUSH 12/28/24 14:00 01/27/25 13:59 Sodium Chloride (Sodium Chloride 3% Inh) 4 ML [id number] IH 01/04/25 12:00 02/03/25 11:59 01/06/25 12:01 4 ML Tramadol HCl (UltRAM) 25 mg Q6H PRN PO MODERATE PAIN (4-6) 12/28/24 14:00 12/29/24 13:56 DC 12/29/24 11:05 25 MG Tramadol HCl (UltRAM) 50 mg Q6H PRN PO SEVERE PAIN (7-10) 12/28/24 14:00 12/29/24 13:56 DC Vasopressin 20 units/Sodium Chloride 100 ml @ 0 mls/hr PROTOCOL IV 12/30/24 15:30 01/29/25 15:29 12/31/24 10:40 6 MLS/HR LABORATORY: [ ] Hematology Labs: Test 01/07/25 03:32 Range/Units White Blood Count 9.1 4.8-10.8 K/uL Red Blood Count 3.90 L 4.50-6.20 MIL/uL Hemoglobin 10.2 L 14.0-18.0 g/dL Hematocrit 32.5 L 42-54 % Mean Corpuscular Volume 83.3 79-99 fL Mean Corpuscular Hemoglobin 26.2 L 27.0-33.0 pg Mean Corpuscular Hemoglobin Concent 31.4 L 32.0-36.0 g/dL Red Cell Distribution Width 25.8 H 11.0-15.5 % Platelet Count 213 130-400 K/uL Mean Platelet Volume 10.4 7.5-10.5 fL Immature Granulocyte % (Auto) 1.4 H 0-1 % Neutrophils (%) (Auto) 69.7 40.0-77.0 % Lymphocytes (%) (Auto) 17.5 L 21.0-51.0 % Monocytes (%) (Auto) 7.8 3.0-13.0 % Eosinophils (%) (Auto) 3.3 0.0-8.0 % Basophils (%) (Auto) 0.3 0.0-5.0 % Neutrophils # (Auto) 6.4 1.8-7.7 K/uL Lymphocytes # (Auto) 1.6 1.0-4.8 K/uL Monocytes # (Auto) 0.7 0.1-1.0 K/uL Eosinophils # (Auto) 0.30 0.00-0.70 K/uL Basophils # (Auto) 0.03 0.00-0.20 K/uL Absolute Immature Granulocyte (auto 0.13 0-1 K/uL Nucleated Red Blood Cells 1.4 H 0.0-0.19 % Chemistry Labs: Test 01/07/25 09:03 01/07/25 03:32 Range/Units Whole Blood Glucose 152 H 70-110 MG/DL Sodium Level 138 136-145 mmol/L Potassium Level 3.6 3.5-5.1 mmol/L Chloride Level 99 L 101-111 mmol/L Carbon Dioxide Level 27 21-32 mmol/L Blood Urea Nitrogen 94 *H 7-18 mg/dL Creatinine 7.9 H 0.5-1.3 mg/dL Glomerular Filtration Rate Calc 7 >90 mL/min Random Glucose 103 70-105 mg/dL Total Calcium 8.3 L 8.5-10.1 mg/dL Phosphorus Level 6.8 H 2.5-4.9 mg/dL Magnesium Level 2.10 1.80-2.40 mg/dL Total Bilirubin 0.7 0.2-1.0 mg/dL Aspartate Amino Transf (AST/SGOT) 69 H 10-37 U/L Alanine Aminotransferase (ALT/SGPT) 22 12-78 U/L Alkaline Phosphatase 116 50-136 U/L Total Protein 6.0 6.0-8.3 g/dL Albumin 1.8 L 3.5-5.0 g/dL Coagulation Labs: Test 01/07/25 08:09 Range/Units Activated Partial Thromboplast Time 55.3 H 26.3-35.5 [facility]: [place] [address] [address] IMAGING REPORT Signed PATIENT: ZHEN IVEY MR#: [id number] : 1970 SEX: M AGE: 54 LOCATION: [facility] ORDER 0808 STATUS: ADM IN REPORT#: [id number] SERVICE 0807 REASON: ischemic digits ORDERING PHYSICIAN: MACEY GALO DO PROCEDURE: ART U LE - US ARTERIAL UNILA LOW EXT DUPL EXAMINATION: DUPLEX ULTRASOUND EXAMINATION OF THE LEFT LOWER EXTREMITY ARTERIES. CLINICAL HISTORY: Pain. COMPARISON: Bilateral lower extremity arterial doppler dated 12/31/2024. FINDINGS: Peak systolic velocities within the left lower arteries are as follows: Common femoral artery: 217 cm/s. Superficial femoral artery: 45 cm/s at proximal, 47 cm/s at mid, and 45 cm/s at distal segments. Popliteal artery: 49 cm/s at proximal and 41 cm/s at distal segments. Posterior tibial artery: 38 cm/s. Anterior tibial artery: 28 cm/s. Dorsalis pedis artery: 55 cm/s. The left lower limb arteries demonstrate triphasic to biphasic waveforms in all arteries. There is intimal wall thickening and multilevel atherosclerosis in the left lower limb arteries. There is a hematoma that measures 2.6 x 2.7 cm adjacent to the left common femoral artery. IMPRESSION: Elevated velocity left inflow with drop in flow velocities suggesting mild to moderate inflow stenosis. Subcutaneous hematoma adjacent to the left common femoral artery. /[place] DICTATED BY: MATT DE LOS SANTOS MD DATE: 01/06/2558 ELECTRONICALLY SIGNED BY: MATT DE LOS SANTOS MD DATE: 01/06/2558 PATIENT: ZHEN IVEY MR#: [id number] : 1970 SEX: M AGE: 54 LOCATION: [facility] ORDER 111 STATUS: ADM IN REPORT#: [id number] SERVICE REASON: post op hypotension/reassess LVEF ORDERING PHYSICIAN: TERRANCE ALVAREZ PROCEDURE: ECHO CMP - ECHO 2-D COMPLETE APPROVED REPORT EXAM: Two-dimensional and M-mode echocardiogram with Doppler and color Doppler. Study Details: CP , HTN INDICATION ICD: post op hypotension / reassess 2D Dimensions RVDd 4.5 cm LVEF(%) 34.1 (>50%) LVED Vol(simp.) 97.7 mL IVSd 0.9 (0.7-1.1cm) FS(%) 16 % LVES Vol(simp.) 76.8 mL LVDd 4.2 (3.8-5.6cm) LA (2D) 2.7 (1.6-4.0cm) LVEF(%, simp.) 21 % PWd 0.8 (0.7-1.1cm) Ao Root(2D) 2.8 (2.0-3.7cm) LA ESV INDEX (BP) 21.01 mL/m2 IVSs 1.1 cm LVOT diam 1.9 (1.8-2.4cm) LVDs 3.5 (2.5-4.0cm) PWs 1.1 cm Deformation Strain Apical 4 4.3 % Apical 2 1.6 % Apical 3 2.4 % Global Strain 2.4 % M-Mode Dimensions EPSS 1.2 cm LA (MM) 3.6 (1.6-4.0cm) Ao Root(MM) 3.2 (2.0-3.7cm) Aortic Valve AoV Vmax 1.0 m/s Ao Peak GR 4.1 mmHg LVOT Vmax 0.6 m/s AoV VTI 0.2 m Ao Mean GR 2.5 mmHg LVOT VTI 0.10 m MARGARITA (VMAX) 1.62 cm2 MARGARITA (VTI) 1.7 cm2 Mitral Valve MV E Vmax 54.6 cm/s DECEL Time 169 ms MV A Vmax 54.6 cm/s P 1/2 T 49 ms E/A ratio 1.0 MVA (PHT) 4.5 cm2 TDI E/E' Medial 13.7 E/E' Lateral 18.7 Medial E' Peak V 3.99 cm/s Lateral E' Peak V 2.92 cm/s Pulmonary Valve PV Vmax 0.5 m/s PV VTI 0.08 m PV Mean GR 0.7 mmHg PV Peak GR 1.0 mmHg Tricuspid Valve TR Vmax 2.5 m/s RVSP 25.3 mmHg TR Peak GR 25.3 mmHg Left Ventricle The left ventricle is mildly dilated. Hyopkinetic anterior wall and apex. Global strain of -25. There is moderate concentric left ventricular hypertrophy.. LVEF is 25-30%. 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 Indeterminate diastolic dysfunction. Right Ventricle The right ventricle is mildly dilated. Right ventricular systolic function is moderately to severely reduced. Atria The left atrium size is normal. The right atrium size is normal. Aortic Valve The aortic valve is not well visualized. No aortic regurgitation is present. There is mild valvular aortic stenosis. Mitral Valve The mitral valve is mildly thickened. There is no mitral valve regurgitation noted. There is no mitral valve stenosis. Tricuspid Valve Tricuspid valve is not well visualized. trace tricuspid regurgitation. Pulmonic Valve The pulmonary valve is normal in structure and function. There is no pulmonic valvular regurgitation. Great Vessels The aortic root is normal in size. IVC is not well visualized. Pericardium not well visualized Conclusion The left ventricle is mildly dilated. LVEF is 25-30%. Hyopkinetic anterior wall and apex. Global strain of -25. 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 DICTATED BY: CHEYENNE LANE MD DATE: 01/01/25 1448 ELECTRONICALLY SIGNED BY: CHEYENNE LANE MD DATE: 01/02/2551 PATIENT: ZHEN IVYE MR#: [id number] : 1970 SEX: M AGE: 54 LOCATION: [facility] ORDER 1343 STATUS: ADM IN REPORT#: [id number] SERVICE 1342 REASON: abdominal pain ORDERING PHYSICIAN: CHEYENNE HENSON PROCEDURE: ABDOMEN - US ABDOMINAL COMPLETE US ABDOMINAL COMPLETE REASON: 54-year-old male with abdominal pain COMPARISON: None FINDINGS: The visualized portion of the chest demonstrate there is small right-sided pleural effusion. There is grade 1 hepatic steatosis the liver.. The left lobe of the liver is obscured by overlying bowel gas. There are no focal mass lesions. The liver is not enlarged.There is a normal-appearing gallbladder. The gallbladder wall thickness is 0.1 cm. The common bile duct is normal size measuring 0.4 cm. Kidneys appear normal in size and appearance. The right kidney measures 9.8 x 4.3 x 4.9 cm. The left kidney measures 9.8 x 4.7 x 5.1 cm.. There is no evidence of mass, stone or hydronephrosis. Spleen appears normal. The spleen length is 9.7 cm.. Aorta and inferior vena cava appear normal. The pancreas is obscured by overlying bowel gas. IMPRESSION: Small right-sided pleural effusion Otherwise a normal upper abdomen sonogram.. DICTATED BY: FRED NUNES MD DATE: 12/30/24 1518 ELECTRONICALLY SIGNED BY: FRED NUNES MD DATE: 12/30/24 1524 ASSESSMENT: Acute renal failure Multiple electrolyte problems. CABG. Underlying anemia. Multiple other comorbidities including coronary artery disease, CABG, previous IA, hypertension, anemia PLAN: Labs, diagnostic, radiologic exams reviewed and interpreted by myself and supervising physician. We have reviewed external records in detail There is no need for emergent renal replacement therapy. Continue with diuretics. Potassium replacement has been ordered. Require close monitoring of renal function and electrolytes Order CBC, CMP, and electrolytes in am Continue with antibiotics BiPAP as necessary, for respiratory distress IV pressors as needed Monitor blood pressure adjust medication doses as needed Avoid hypotensive episodes May use Dilaudid 0.5 mg IV every 6 hours as needed for severe pain Monitor blood sugars Strict intake, output, and daily weight should be monitored Please renally adjust medications Avoid nephrotoxic and nonsteroidal drugs Avoid contrast if possible Will continue to monitor renal function, anemia, electrolytes Treatment plan discussed with patient Questions were answered We have discussed with the other team physicians in detail about the care plan We will continue to monitor the patient closely Total critical care time spent with patient, nursing staff, critical care team over 35 minutes ATTESTATION BY PHYSICIAN I have seen and examined the patient. I reviewed the documentation, medical decision making, and treatment plan as noted by the mid-level provider above. I agree with the findings and plan of care. FREDDY KENT MD, [facility] Jan 07, 2025 10:21
--- NOTE | 2025-01-07 10:35 | HMCIMG ---
CHEST 1VW REASON: chest tube COMPARISON: Prior chest radiograph from 01/05/2025 is available. FINDINGS: Single view of the chest was obtained. Lungs are clear. Heart size is normal with median sternotomy. There is a right-sided PICC catheter in place. There is a left-sided chest tube in place.. There is no pulmonary vascular congestion. Mediastinum and bony thorax appear unremarkable. IMPRESSION: 1. Status post median sternotomy with cardiac revascularization procedure 2. Support lines are in satisfactory position. 3. No evidence of airspace consolidation or pulmonary venous congestion.
--- NOTE | 2025-01-07 10:41 | PN ---
[facility] PROGRESS NOTE Date Patient Seen: Jan 07, 2025 Time of Visit: 10:41 Supervising Physician: John Jane MD Primary Care Physician: Joe Felton D.O. Outpatient Specialists: [ ] Inpatient Consults: CK Mcnair, Radha Swartz, Dr Guzman Attending: Festus Tovar MD PROBLEM LIST: CAD post CABG 12/28/2024 Acute left lower extremity ischemia Left LE Arterial occlusion S/P removal of IABP and thrombectomy LE 12/31/24 Acute on chronic combined heart failure with reduced EF of 25-30%, improving Cardiorenal syndrome Acute renal failure Non-STEMI POA Hypertension Anemia INTERVAL HISTORY: No major overnight events. Patient continues on Lasix drip at 2.5 milligrams/hour and dobutamine at 1 mcg/kg per minute in argatroban drip. Patient reports occasional dry cough he continues nebs in pulmonary toileting. As per patient guaifenesin also helps. Current wound care to left ischemic foot per Podiatry recommendation. He is wearing his Medical boot to left foot. CBC unremarkable similar to yesterday. Cr improved slightly to 7.9 . we will follow CV and cardiology recommendations REVIEW OF SYSTEMS: General: No malaise or fever. Neurological: No fainting episodes or seizures. HEENT: No nasal congestion or nasal secretion. Respiratory: No cough, shortness of breath, or wheezing Cardiac: No chest pain or palpitations. midsternal incision line tenderness Gastrointestinal: No vomiting or diarrhea. Genitourinary: No dysuria hematuria. Skin: No rashes or lesions. Hematological: No bruises or bleeding.+ lt foot pain Musculoskeletal: No joint pains or arthralgias. Psychiatric: No depression or panic attacks. PHYSICAL EXAM: GENERAL: Awake alert and oriented x2 HEENT: EOMI, Sclera non icteric, moist mucosa NECK: Supple, no JVD, trachea midline LUNGS: Chest tubes in place, HEART: Regular rate and rhythm. Normal S1 and S2, without murmurs ABD: Abdomen soft, nontender. Bowel sounds present EXT: No clubbing cyanosis or edema NEURO: GCS of 14 no focal weakness. Vital Signs (last 8hr) Date Time Temp Pulse Resp B/P (MAP) Pulse Ox O2 Delivery O2 Flow Rate FiO2 01/07/25 09:00 95 35 112/78 (89) 97 21 112/47 (68) 01/07/25 08:04 98.4 01/07/25 08:00 95 23 128/86 (100) 97 21 119/74 (89) 01/07/25 08:00 97 Room Air* 0 21 01/07/25 07:00 90 38 126/89 (101) 99 21 144/76 (98) 01/07/25 06:30 91 24 130/89 (103) 100 135/90 (105) 01/07/25 06:25 95 20 01/07/25 06:19 95 20 N/Cannula Low lpm 2.0 28 01/07/25 06:00 92 29 131/96 (108) 97 28 151/94 (113) 01/07/25 05:30 91 29 134/91 (105) 98 143/92 (109) 01/07/25 05:00 89 27 91/77 (82) 98 124/89 (101) 01/07/25 04:30 88 27 91/72 (78) 98 151/98 (115) 01/07/25 04:12 98.8 Nasal Cannula 2.0 28 01/07/25 04:07 99 Nasal Cannula* 2 28 01/07/25 04:00 88 24 95/79 (84) 100 28 133/82 (99) 01/07/25 03:30 90 30 105/91 (96) 99 149/95 (113) 01/07/25 03:00 89 45 129/88 (102) 98 LABS: Hematology Labs: Test 01/07/25 03:32 Range/Units White Blood Count 9.1 4.8-10.8 K/uL Red Blood Count 3.90 L 4.50-6.20 MIL/uL Hemoglobin 10.2 L 14.0-18.0 g/dL Hematocrit 32.5 L 42-54 % Mean Corpuscular Volume 83.3 79-99 fL Mean Corpuscular Hemoglobin 26.2 L 27.0-33.0 pg Mean Corpuscular Hemoglobin Concent 31.4 L 32.0-36.0 g/dL Red Cell Distribution Width 25.8 H 11.0-15.5 % Platelet Count 213 130-400 K/uL Mean Platelet Volume 10.4 7.5-10.5 fL Immature Granulocyte % (Auto) 1.4 H 0-1 % Neutrophils (%) (Auto) 69.7 40.0-77.0 % Lymphocytes (%) (Auto) 17.5 L 21.0-51.0 % Monocytes (%) (Auto) 7.8 3.0-13.0 % Eosinophils (%) (Auto) 3.3 0.0-8.0 % Basophils (%) (Auto) 0.3 0.0-5.0 % Neutrophils # (Auto) 6.4 1.8-7.7 K/uL Lymphocytes # (Auto) 1.6 1.0-4.8 K/uL Monocytes # (Auto) 0.7 0.1-1.0 K/uL Eosinophils # (Auto) 0.30 0.00-0.70 K/uL Basophils # (Auto) 0.03 0.00-0.20 K/uL Absolute Immature Granulocyte (auto 0.13 0-1 K/uL Nucleated Red Blood Cells 1.4 H 0.0-0.19 % Chemistry Labs: Test 01/07/25 09:03 01/07/25 03:32 Range/Units Whole Blood Glucose 152 H 70-110 MG/DL Sodium Level 138 136-145 mmol/L Potassium Level 3.6 3.5-5.1 mmol/L Chloride Level 99 L 101-111 mmol/L Carbon Dioxide Level 27 21-32 mmol/L Blood Urea Nitrogen 94 *H 7-18 mg/dL Creatinine 7.9 H 0.5-1.3 mg/dL Glomerular Filtration Rate Calc 7 >90 mL/min Random Glucose 103 70-105 mg/dL Total Calcium 8.3 L 8.5-10.1 mg/dL Phosphorus Level 6.8 H 2.5-4.9 mg/dL Magnesium Level 2.10 1.80-2.40 mg/dL Total Bilirubin 0.7 0.2-1.0 mg/dL Aspartate Amino Transf (AST/SGOT) 69 H 10-37 U/L Alanine Aminotransferase (ALT/SGPT) 22 12-78 U/L Alkaline Phosphatase 116 50-136 U/L Total Protein 6.0 6.0-8.3 g/dL Albumin 1.8 L 3.5-5.0 g/dL Coagulation Labs: Test 01/07/25 08:09 Range/Units Activated Partial Thromboplast Time 55.3 H 26.3-35.5 SEC DIAGNOSTICS / RADIOLOGY RESULTS: [[facility] [address] [place] [address] IMAGING REPORT Signed PATIENT: ZHEN IVEY MR#: [id number] : 1970 SEX: M AGE: 54 LOCATION: 2C ORDER 2300 STATUS: ADM IN REPORT#: [id number] SERVICE 0600 REASON: chest tube ORDERING PHYSICIAN: BORIS LOW PROCEDURE: CXR1VW - CHEST 1VW CHEST 1VW REASON: chest tube COMPARISON: Prior chest radiograph from 01/05/2025 is available. FINDINGS: Single view of the chest was obtained. Lungs are clear. Heart size is normal with median sternotomy. There is a right-sided PICC catheter in place. There is a left-sided chest tube in place.. There is no pulmonary vascular congestion. Mediastinum and bony thorax appear unremarkable. IMPRESSION: 1. Status post median sternotomy with cardiac revascularization procedure 2. Support lines are in satisfactory position. 3. No evidence of airspace consolidation or pulmonary venous congestion. DICTATED BY: FRED NUNES MD DATE: 01/07/251031 ELECTRONICALLY SIGNED BY: FRED NUNES MD DATE: 01/07/251034 ] PLAN Continue PT continue IS Continue follow Cardiothoracic Surgeons postop protocol Neurovascular checks to lower extremities Monitor for bleeding Electrolyte protocol Daily labs and chest x-rays in a.m. PT/OT when able Follow cardiology recs Follow nephrology recs Follow GI recs Follow up Podiatry recommendations pulmonary toileting NEURO: Minimize central acting medications as possible. Fall Precautions. Well lighted room through the day and minimize interruptions through the night to prevent acute delirium. PULMONARY: Supplemental 02 as needed Titrate Fio2 to keep Spo2 > or = 90% DuoNebs and CPT as needed IS hourly while awake for pulmonary hygiene Out of bed to chair as tolerated CARDIOVASCULAR: Follow hemodynamics. Titrate vasopressor to keep MAP >65 or systolic blood pressure >95mmHg DRIPS: Lasix Dobutamine LINES: RT IJ CVC GI & NUTRITION: Continue nutritional support Aspirations precautions Prokinetic agents and laxatives as needed KIDNEYS & ELECTROLYTES: Strict monitoring of intake and output Daily weights Avoid nephrotoxic agents Monitor electrolytes and replace as needed Goal urine output of 30mL/hr or 0.5mL/kg/hr ENDOCRINE: Maintain blood glucose between 100-180 at all times. Insulin sliding scale for blood glucose management INFECTIOUS DISEASE: Trend temperature. Quiñones-culture if febrile. Micro: [ ] Antibiotics: Zosyn HEMATOLOGY & COAGULATION: Monitor H&H. Keep Hgb > 7 Transfuse 1 unit of PRBC for Hgb < 7 Transfuse 1 pack of platelets of platelets < 20, 000 Watch for any signs and symptoms of bleeding SKIN: Pressure ulcer prevention per facility protocol Rehab: PT/OT Prophylaxis: GI: Pepcid DVT: per CV surgery Code Status: Full Resuscitation Disposition: ICU Other: Total patient Critical Care time 35 minutes, time excluded any procedures. Case was discussed and seen with my supervising physician. The above plan was formulated and agreed upon. ATTESTATION BY PHYSICIAN I have evaluated the patient chart, medical records, and spoke with appropriate staff. I reviewed the documentation, medical decision making, and treatment plan as noted by the mid-level provider above. I agree with the findings and plan of care. John Jane MD, NELLY J [facility] Jan 07, 2025 10:41
--- NOTE | 2025-01-07 11:43 | PN ---
[facility] PROGRESS NOTE Date of Service: Jan 07, 2025 Time of Service: 11:43 SUBJECTIVE: This is a 54-year-old male who presented to [facility] with a non-STEMI. He underwent left heart catheterization which showed severe multi-vessel coronary artery disease with mid to apical inferior hypokinesis, LVEF 45-50%. He underwent echocardiogram 12/19/2024 which showed an ejection fraction of 55- 60%, mild LVH, normal-sized left atrium, mild mitral valve regurgitation and mild tricuspid valve regurgitation. He was transferred to [facility] for CABG. 12/25 patient remains admitted to the PCU, case discussed with the RN, no acute events overnight, he denied chest pain, shortness shortness for breath, no nausea, no vomiting, no abdominal discomfort. Cardiology input noted and appreciated, patient to continue aspirin 81 mg p.o. daily and atorvastatin 40 mg p.o. daily. Continue metoprolol tartrate 25 mg p.o. b.i.d.. Pending evaluation by CT surgery for consideration for CABG. Discussed with the patient. 12/26 patient remains admitted to the PCU, case discussed with the RN, no acute events overnight, the time of my visit the patient is comfortably in bed, alert oriented x3, eating breakfast, tolerating well, denies nausea, no vomiting, no abdominal discomfort, he denies chest pain, no shortness a breath. Remains on aspirin 81 mg p.o. daily, atorvastatin and metoprolol 25 mg p.o. b.i.d.. Pending evaluation by CT surgery for consideration of CABG. 12/27 patient is seen and examined at bedside, case discussed with the RN, no acute events overnight, currently the patient NPO, scheduled for CABG today by Cardiothoracic surgeon. We will continue to follow. 12/28 patient is seen and examined at bedside, case discussed with the RN, no acute events overnight, currently the patient NPO, scheduled for CABG today by Cardiothoracic surgeon. We will continue to follow. 12/29 patient is seen and examined at bedside, remains admitted to the ICU, postoperative day 1., status post CABG 12/28/2024, patient on insulin drip, nitroglycerin drip, alert oriented x3 following commands, however was mildly agitated earlier this morning, motion with the RN started on Precedex. Patient with chest tube in place. Further recommendations per Cardiothoracic surgeon. 12/30 patient remains admitted to the ICU, case discussed with the RN, patient remains confused, trying to pull his IV lines, remains on Precedex. Throughout the balloon pump in place, just to be breath, remains on epinephrine, Levophed, Lasix drip, dobutamine drip. Creatinine today at 3.0. Nephrology consultation requested, we will follow input and recommendation. Continue to monitor liver enzymes in a.m., follow ammonia level (at the time of my dictation less than 10). Continue to follow critical care input and recommendation. Prognosis remains guarded. 12/31 54-year-old male who was transferred from [facility] with a non- STEMI. He underwent left heart catheterization which showed severe multi-vessel coronary artery disease with mid to apical inferior hypokinesis, LVEF 45-50%. He underwent echocardiogram 12/19/2024 which showed an ejection fraction of 55- 60%, mild LVH, normal-sized left atrium, mild mitral valve regurgitation and mild tricuspid valve regurgitation. He was transferred to [facility] for CABG. Cardiothoracic surgeon consultation requested, patient underwent CABG 12/28/2024. Continue to follow Cardiothoracic input and recommendations. Patient has been mildly confused post procedure, started on Precedex. 01/01 54-year-old male who was transferred from [facility] with a non- STEMI. He underwent left heart catheterization which showed severe multi-vessel coronary artery disease with mid to apical inferior hypokinesis, LVEF 45-50%. He underwent echocardiogram 12/19/2024 which showed an ejection fraction of 55- 60%, mild LVH, normal-sized left atrium, mild mitral valve regurgitation and mild tricuspid valve regurgitation. He was transferred to [facility] for CABG. Cardiothoracic surgeon consultation requested, patient underwent CABG 12/28/2024. At the time of my visit resting comfortably in bed, off Precedex, following commands, status post interval removal of intra-aortic balloon pump yesterday, remains on dobutamine and nitroglycerin drip as well as argatroban. Continue to follow critical Care and Cardiothoracic input and recommendations. 01/02/25: Patient was evaluated at the bedside. Today is postop Day 5 and he is recovering well. Patient underwent thrombectomy in the femoral artery of left lower extremity and removal of intra-aortic balloon pump yesterday. Patient has mottled appearance in the left great toe and dorsalis pedis pulsations are present. His chest tube output was 320 mL over the last 24 hours. His stool was positive for occult blood and a GI consult has been placed. Cardiology advised to continue the current treatment. Patient is weaned off Levophed and is currently on Lasix, dobutamine, nitroglycerin, and argatroban drips. A swallow test will be performed today to evaluate the need for removing NG tube. 01/03/25: Patient was evaluated at the bedside, this is postop day 6 and is recovering well. Patient has mottled appearance in the left great toe extending into all the digits. Dorsalis pedis pulsations were diminished with palpation but detected on Doppler. His chest tube output was 310 mL today. A GI consult was placed for occult blood however no intervention was recommended and advised to continue Protonix 40 mg. Nephrology recommended no renal replacement as pat ient has good urine output,3 L today and is responding well to diuresis. Patient is continued on Lasix, dobutamine, nitroglycerin, and argatroban drips. NG tube was removed and patient was started on pureed heart healthy diet as tolerated. 01/04/2025: Patient was evaluated at the bedside, this is postop day 7. Patient had an episode of AFib with rapid ventricular response this morning and was cardioverted with amiodarone and continued on drip. Patient's left leg discoloration has improved, but still has diminished pulses only detected by Doppler. His chest tube output is 140 mL. Patient's ERICK has been worsening with creatinine 7.8 today however he has adequate urine output, 3.5 L today. Cardiology recommended to reduce Lasix drip to 2.5 and nephrology advised that patient's creatinine is stabilizing and renal function will improve in the next few days. Patient is still continuing on argatroban, nitro, and dobutamine drips. Otherwise patient has been recovering well tolerating pureed food and only complains of occasional throat pain due to cough. He was encouraged to cough to clear the chest secretions and use p.r.n. benzocaine spray for relief. His chest x-ray shows clearing pleural effusion and pulmonary edema. 01/05/2025: Patient was evaluated at the bedside and this is postop day. Patient has been in sinus rhythm since the AFib episode this morning. IV amiodarone was stopped and transitioned to p.o. 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 Supervisor [employer] Department recommended applying nitroglycerin paste and and covered it in dressing. Patient's ERICK continues to worsen, creatinine 8.2 today. However he is maintaining a good urine output, 2500 today. He has been weaning of Lasix drip. Patient has been encouraged to use incentive spirometry and cough as tolerated to clear the chest secretions. Chest x-ray showed no evidence of pulmonary venous congestion today. 01/06/2025: Patient was evaluated at the bedside, he was sitting comfortably in his chair. Patient has been in sinus rhythm. Patient continues on argatroban, Lasix, and dobutamine drips. Patient's ERICK seemed to be stabilizing his creat inine is 8.3 compared to 8.2 yesterday. Patient is maintaining good urine output, 2L in the last 24 hours. Patient's left foot was covered in dressing. Dr. Persaud evaluated the patient today and recommended walking boot with dressing if he is cleared by Cardiology for ambulation. His demarcating necrosis of the distal aspects of digits 1, 2, 3, and 4 on the left side seemed to be improving. Dr. Persaud recommended to continue nitroglycerin paste. Patient encouraged to use incentive spirometry and cough and was asked to use benzocaine for relief from throat pain. 01/07/2025 - patient seen at bedside in room 215 , patient is alert awake and oriented. Patient continues to be on argatroban, Lasix drips, his acute kidney injury possibly secondary to ATN secondary to hypotensive episode seems resolving while maintaining good urine output. Patient still complains of cough, pain in the left lower extremity. Patient's phosphorus trended down to 6.8 And anion gap closed down to 12 today. Patient currently hemodynamically stable and we will continue to monitor closely. REVIEW OF SYSTEMS CONSTITUTIONAL: Denies fevers, chills, or night sweats. No unintentional weight loss reported. NEUROLOGICAL: Denies headache, amaurosis fugax, motor weakness, sensory deficit, vertigo/spinning sensation, gait abnormalities, or tremors. CARDIOVASCULAR: Denies any exertional angina, dyspnea on exertion, orthopnea, paroxysmal nocturnal dyspnea, palpitations, life-threatening arrhythmias, claudication. PULMONARY: Denies any shortness of breath, hemoptysis, pleuritic chest pain. Patient has cough with clear sputum post CABG GASTROINTESTINAL: Denies any type of dysphagia to either liquids or solids. Denies nausea, vomiting, pyrosis, early satiety, abdominal pain, diarrhea, constipation, or changes in stool consistency or caliber. GENITOURINARY: Denies frequency, urgency, nocturia, hematuria or incontinence. Andres in place PHYSICAL EXAM GENERAL APPEARANCE: Patient is alert, oriented, resting comfortably in his bed, with drips in place. NECK: Supple. No JVD. CHEST: Normal chest expansion. Telemetry in place. LUNGS: Absence of any rales, rhonchi or any wheezing. Chest tube in place. CARDIOVASCULAR: Regular. S1 and S2 normal. No appreciable rubs, murmurs or gallops. ABDOMEN: Soft, nontender, and nondistended. There is no rebound, voluntary guarding, or rigidity. : Deferred. No Andres. EXTREMITIES: Diminished pulse in the left lower extremity, cold to touch, swollen, mottled and cyanotic appearance in all the toes, Improving now Pulses present per Doppler. SKIN: No skin breakdown. Vital Signs (last 8hr) Date Time Temp Pulse Resp B/P (MAP) Pulse Ox O2 Delivery O2 Flow Rate FiO2 01/07/25 11:38 98.1 01/07/25 09:00 95 35 112/78 (89) 97 21 112/47 (68) 01/07/25 08:04 98.4 01/07/25 08:00 95 23 128/86 (100) 97 21 119/74 (89) 01/07/25 08:00 97 Room Air* 0 21 01/07/25 07:00 90 38 126/89 (101) 99 21 144/76 (98) 01/07/25 06:30 91 24 130/89 (103) 100 135/90 (105) 01/07/25 06:25 95 20 01/07/25 06:19 95 20 N/Cannula Low lpm 2.0 28 01/07/25 06:00 92 29 131/96 (108) 97 28 151/94 (113) 01/07/25 05:30 91 29 134/91 (105) 98 143/92 (109) 01/07/25 05:00 89 27 91/77 (82) 98 124/89 (101) 01/07/25 04:30 88 27 91/72 (78) 98 151/98 (115) 01/07/25 04:12 98.8 Nasal Cannula 2.0 28 01/07/25 04:07 99 Nasal Cannula* 2 28 01/07/25 04:00 88 24 95/79 (84) 100 28 133/82 (99) LABS: Laboratory: Test 01/07/25 09:03 01/07/25 08:09 01/07/25 03:32 01/05/25 16:10 Range/Units Whole Blood Glucose 152 H 70-110 MG/DL Activated Partial Thromboplast Time 55.3 H 26.3-35.5 SEC White Blood Count 9.1 4.8-10.8 K/uL Red Blood Count 3.90 L 4.50-6.20 MIL/uL Hemoglobin 10.2 L 14.0-18.0 g/dL Hematocrit 32.5 L 42-54 % Mean Corpuscular Volume 83.3 79-99 fL Mean Corpuscular Hemoglobin 26.2 L 27.0-33.0 pg Mean Corpuscular Hemoglobin Concent 31.4 L 32.0-36.0 g/dL Red Cell Distribution Width 25.8 H 11.0-15.5 % Platelet Count 213 130-400 K/uL Mean Platelet Volume 10.4 7.5-10.5 fL Immature Granulocyte % (Auto) 1.4 H 0-1 % Neutrophils (%) (Auto) 69.7 40.0-77.0 % Lymphocytes (%) (Auto) 17.5 L 21.0-51.0 % Monocytes (%) (Auto) 7.8 3.0-13.0 % Eosinophils (%) (Auto) 3.3 0.0-8.0 % Basophils (%) (Auto) 0.3 0.0-5.0 % Neutrophils # (Auto) 6.4 1.8-7.7 K/uL Lymphocytes # (Auto) 1.6 1.0-4.8 K/uL Monocytes # (Auto) 0.7 0.1-1.0 K/uL Eosinophils # (Auto) 0.30 0.00-0.70 K/uL Basophils # (Auto) 0.03 0.00-0.20 K/uL Absolute Immature Granulocyte (auto 0.13 0-1 K/uL Nucleated Red Blood Cells 1.4 H 0.0-0.19 % Sodium Level 138 136-145 mmol/L Potassium Level 3.6 3.5-5.1 mmol/L Chloride Level 99 L 101-111 mmol/L Carbon Dioxide Level 27 21-32 mmol/L Blood Urea Nitrogen 94 *H 7-18 mg/dL Creatinine 7.9 H 0.5-1.3 mg/dL Glomerular Filtration Rate Calc 7 >90 mL/min Random Glucose 103 70-105 mg/dL Total Calcium 8.3 L 8.5-10.1 mg/dL Phosphorus Level 6.8 H 2.5-4.9 mg/dL Magnesium Level 2.10 1.80-2.40 mg/dL Total Bilirubin 0.7 0.2-1.0 mg/dL Aspartate Amino Transf (AST/SGOT) 69 H 10-37 U/L Alanine Aminotransferase (ALT/SGPT) 22 12-78 U/L Alkaline Phosphatase 116 50-136 U/L Total Protein 6.0 6.0-8.3 g/dL Albumin 1.8 L 3.5-5.0 g/dL Urine Color COLORLESS YELLOW Urine Appearance CLEAR CLEAR Urine pH 7.0 5.0-8.0 Urine Specific [place] 1.011 1.001-1.031 Urine Protein 30 H NEGATIVE mg/dL Urine Glucose (UA) NEGATIVE NEGATIVE mg/dL Urine Ketones NEGATIVE NEGATIVE mg/dL Urine Occult Blood MODERATE H NEGATIVE Urine Nitrate NEGATIVE NEGATIVE Urine Bilirubin NEGATIVE NEGATIVE mg/dL Urine Urobilinogen 0.2 0.2-1.0 mg/dL Urine Leukocyte Esterase NEGATIVE NEGATIVE Jorge/uL Urine RBC 0-1 0-1 /HPF Urine WBC 2-5 H 0-1 /HPF Urine Bacteria None None Seen /HPF Urine Osmolality 364 50-1200 mOsm/kg Urine Random Creatinine 37.80 30-135 mg/dL Urine Random Sodium 112 40-220 mmol/l Urine Random Potassium 14 L 25-125 mmol/L Urine Random Chloride 92 L 110-250 mmol/L Current Medications Medications (Trade) Dose Ordered Sig/Mila Route PRN Reason Start Time Stop Time Status Last Admin Dose Admin Acetaminophen (TYLenol 325MG TAB) 650 mg Q4H PRN PO Temp >38.3C(AFTER EXTUBATION) 12/28/24 14:00 01/27/25 13:59 Acetaminophen (TYLenol 325MG TAB) 650 mg Q6H PRN PO MILD PAIN (1-3) 12/24/24 01:30 12/28/24 13:57 DC 12/27/24 23:45 650 MG Acetaminophen (TYLenol 325MG TAB) 650 mg Q6H PRN PO TEMPERATURE GREATER THAN 101.5 12/24/24 03:00 12/28/24 14:10 DC Acetaminophen (TYLenol 325MG TAB) 650 mg Q6H PRN PO MILD PAIN (1-3) 12/28/24 14:00 01/27/25 13:59 01/05/25 20:03 650 MG Acetaminophen (TYLenol 650MG SUPPOSITORY) 650 mg Q4H PRN RC Temp >38.3C WHILE INTUBATED 12/28/24 14:00 01/27/25 13:59 Acetaminophen (acetaMINOPHEN) 1,000 mg Q6H6 IV 12/28/24 18:00 12/29/24 17:59 DC 12/29/24 17:27 1,000 MG Acetaminophen (acetaMINOPHEN) 1,000 mg Q6H6 IVPB 12/30/24 00:00 12/31/24 20:14 DC 12/30/24 18:16 1,000 MG Albumin Human 250 ml @ 0 mls/hr AD PRN IV IF HEMODYNAMICALLY UNSTABLE 12/28/24 14:00 12/29/24 09:28 DC 12/29/24 09:28 250 MLS/HR Albuterol (DUOneb) 1 UDVIAL [id number] IH 01/01/25 18:00 01/01/25 15:25 DC Albuterol Sulfate (Proventil 0.083% 2.5mg/3ml) 2.5 mg ONCE STAT IH 12/30/24 10:22 12/30/24 10:32 DC 12/30/24 10:43 2.5 MG Aminocaproic Acid 55289 mg/Sodium Chloride 310 ml @ 25 mls/hr AD IV 12/28/24 14:00 12/28/24 14:14 DC Aminocaproic Acid 03939 mg/Sodium Chloride 480 ml @ 0 mls/hr AD PRN IV BLEEDING CONTROL 12/27/24 11:00 01/26/25 10:59 Amiodarone HCl (pacERONE 200MG) 200 mg DAILY PO 01/05/25 09:00 02/04/25 08:59 01/07/25 09:59 200 MG Amiodarone HCl 150 mg/Dextrose 103 ml @ 618 mls/hr ONCE IV 01/04/25 06:30 01/04/25 06:21 DC Amiodarone HCl 360 mg/Dextrose 207.2 ml @ 33.3 mls/hr AD IV 01/04/25 06:30 01/04/25 06:21 DC Amiodarone HCl 540 mg/Dextrose 310.8 ml @ 16.7 mls/hr [id number] IV 01/04/25 06:30 02/03/25 06:29 01/04/25 13:01 16.7 MLS/HR Argatroban 250 mg/ Sodium Chloride 250 ml @ 0 mls/hr PROTOCOL IV 12/31/24 16:30 01/30/25 16:29 12/31/24 22:32 2.61 MLS/HR Aspirin (Aspirin 81mg Ec Tab) 81 mg DAILY PO 12/24/24 09:00 01/23/25 08:59 01/07/25 09:58 81 MG Atorvastatin Calcium (LIPItor 40MG) 40 mg HS PO 12/24/24 21:00 01/01/25 11:16 DC 12/31/24 20:44 40 MG Atorvastatin Calcium (LIPItor 40MG) 40 mg HS PO 01/07/25 21:00 02/06/25 20:59 Benzocaine (Cepacol Sore Throat Lozenge) 1 each Q4H PRN MM SORE THROAT 01/03/25 13:30 02/02/25 13:29 01/06/25 11:16 1 EACH Bisacodyl (DulcoLAX) 10 mg DAILY PRN RC CONSTIPATION - MOM INEFFECTIVE 12/29/24 14:00 01/28/25 13:59 12/30/24 11:05 10 MG Calcium Gluconate 1 gm/Sodium Chloride 60 ml @ 200 mls/hr AD PRN IV HYPOCALCEMIA 12/28/24 14:00 01/27/25 13:59 01/01/25 01:52 200 MLS/HR Cefazolin Sodium (ANCEF 1 gm vial) 2 gm ONCALL IVP 12/26/24 16:30 12/26/24 16:28 DC Cefazolin Sodium (Ancef) 2 gm ONCALL PRN IVP SURGERY 12/26/24 16:30 12/28/24 13:57 DC Cefazolin Sodium (Ancef) 2 gm Q8H IVPB 12/28/24 19:00 12/29/24 11:01 DC 12/29/24 11:04 2 GM Dexmedetomidine/ Sodium Chloride (PRECEdex 400MCG/ 100ML-NS) 400 mcg PROTOCOL IV 12/28/24 14:00 12/29/24 13:59 DC 12/29/24 12:16 400 MCG Dexmedetomidine/ Sodium Chloride (PRECEdex 400MCG/ 100ML-NS) 400 mcg PROTOCOL IV 12/29/24 18:00 01/28/25 17:59 12/31/24 06:05 400 MCG Dextrose (D50w) 50 ml AD PRN IV HYPOGLYCEMIA PROTOCOL 12/28/24 14:00 01/27/25 13:59 Dextrose (D50w) 50 ml ONCE STAT IV 12/30/24 11:36 12/30/24 11:39 DC 12/30/24 11:45 50 ML Dextrose/Sodium Chloride 1,000 ml @ 50 mls/hr Q20H IV 12/30/24 11:30 01/01/25 16:17 DC 01/01/25 02:09 50 MLS/HR Dobutamine HCl/ Dextrose 250 ml @ 0 mls/hr PROTOCOL IV 12/29/24 14:00 01/28/25 13:59 01/05/25 08:48 4.1 MLS/HR Docusate Sodium (COLace 100MG CAP) 100 mg BID PO 12/28/24 21:00 12/29/24 08:01 DC 12/28/24 20:53 100 MG Docusate Sodium (COLace LIQUID 100MG/10ML) 100 mg BID PO 12/29/24 08:00 01/28/25 07:59 01/06/25 20:02 100 MG Enoxaparin Sodium (Lovenox) 30 mg DAILY SQ 12/31/24 09:00 12/31/24 16:12 DC Epinephrine HCl 10 mg/Sodium Chloride 250 ml @ 0 mls/hr AD PRN IV TITRATE 12/27/24 11:00 01/26/25 10:59 12/30/24 04:29 0 MLS/HR Epinephrine HCl 10 mg/Sodium Chloride 250 ml @ 0 mls/hr AD PRN IV POST-OP CARDIOVASCULAR ORDERS 12/28/24 14:00 12/28/24 14:14 DC Famotidine (Pepcid 20mg Vial) 20 mg BID IV 12/28/24 21:00 12/31/24 20:20 DC 12/31/24 08:51 20 MG Famotidine (Pepcid 20mg Vial) 20 mg Q48H IV 01/02/25 09:00 01/02/25 04:51 DC Famotidine (Pepcid 20mg Tab) 20 mg DAILY PO 12/24/24 09:00 12/28/24 13:54 DC 12/26/24 10:19 20 MG Furosemide (LASix 20MG TAB) 20 mg Q12H PO 12/30/24 09:00 12/30/24 08:34 DC Furosemide (LASix 20MG VIAL) 20 mg Q12H IV 12/29/24 09:00 12/30/24 08:34 DC 12/29/24 09:20 20 MG Furosemide 100 mg/ Sodium Chloride 100 ml @ 0 mls/hr PROTOCOL IV 12/29/24 14:30 01/28/25 14:29 01/07/25 08:41 0 MLS/HR Glucagon (Glucagon 1mg Kit) 1 mg AD PRN IM HYPOGLYCEMIA PROTOCOL 12/28/24 14:00 01/27/25 13:59 Guaifenesin/ Dextromethorphan (RobiTUSSin DM 200/20MG 10ML) 10 ml Q4H PRN PO COUGH 01/03/25 16:30 02/02/25 16:29 01/07/25 08:25 10 ML Heparin Sodium (Porcine) (HEParin 5,000 UNIT VIAL) *calculation based on ACTUAL B... AD PRN IV HEPARIN PROTOCOL 12/24/24 02:30 12/28/24 13:54 DC 12/24/24 17:32 5,000 UNIT Heparin Sodium/ Dextrose 250 ml @ 0 mls/hr Q6H IV 12/24/24 02:30 12/28/24 13:54 DC 12/27/24 17:04 11.3 MLS/HR Hydralazine HCl (APRESOLine 20MG INJ) 10 mg Q6H PRN IV For:SBP above 160;DBP above 90 12/24/24 03:00 12/28/24 13:54 DC Insulin Human Regular (humuLIN R 100 UNIT/ML 3ML) 10 unit ONCE STAT IV 12/30/24 11:42 12/30/24 11:45 DC 12/30/24 12:01 10 UNIT Insulin Human Regular (humuLIN R 100 UNIT/ML 3ML) 10 unit ONCE STAT SQ 12/30/24 11:36 12/30/24 11:43 DC Insulin Human Regular 100 unit/ Sodium Chloride 100 ml @ 0 mls/hr AD IV 12/28/24 14:00 12/29/24 17:55 DC 12/28/24 17:09 5 MLS/HR Ipratropium [place] (AtrovENT UD) 0.5 mg [id number] IH 12/30/24 12:00 01/29/25 11:59 01/07/25 06:24 0.5 MG Lactulose (Constulose 20gm/ 30ml Udcup) 20 gm BID PRN PO CONSTIPATION 12/24/24 03:00 12/28/24 13:54 DC 12/26/24 21:30 20 GM Lactulose (Constulose 20gm/ 30ml Udcup) 20 gm BID PRN PO CONSTIPATION 12/28/24 14:00 01/27/25 13:59 12/30/24 07:50 20 GM Lidocaine HCl/ Dextrose 250 ml @ 0 mls/hr AD PRN IV TITRATE 12/28/24 22:30 12/29/24 16:00 DC 12/29/24 06:53 15 MLS/HR Magnesium Hydroxide (Milk Of Magnesium 30ml) 30 ml DAILY PRN PO CONSTIPATION 12/28/24 14:00 01/27/25 13:59 12/30/24 10:18 30 ML Magnesium Sulfate 50 ml @ 12.5 mls/hr AD PRN IV MAG LEVEL LESS THAN 2.0 12/28/24 14:00 01/27/25 13:59 12/28/24 18:42 12.5 MLS/HR Magnesium Sulfate 50 ml @ 0 mls/hr PROTOCOL PRN IV MAGNESIUM PROTOCOL 12/26/24 15:00 12/28/24 14:10 DC Metolazone (zarOXOlyn) 5 mg ONCE PO 12/31/24 12:00 12/31/24 20:18 DC 12/31/24 12:01 5 MG Metolazone (zarOXOlyn) 5 mg ONCE PO 01/01/25 16:30 01/02/25 16:29 DC 01/01/25 16:53 5 MG Metoprolol Tartrate (loprESSOR) 12.5 mg BID PO 12/30/24 09:00 01/04/25 08:51 DC 01/03/25 20:09 12.5 MG Metoprolol Tartrate (loprESSOR) 25 mg BID PO 12/25/24 21:00 12/28/24 13:54 DC 12/28/24 09:28 25 MG Metoprolol Tartrate (loprESSOR) 25 mg TID PO 01/04/25 09:00 01/06/25 13:08 DC 01/06/25 09:27 25 MG Metoprolol Tartrate (loprESSOR) 50 mg BID PO 01/06/25 21:00 02/05/25 20:59 01/07/25 09:59 50 MG Morphine Sulfate (morPHINE 2MG SYG) 0.5 mg Q2H PRN IV MODERATE PAIN (4-6) 12/28/24 14:00 12/29/24 13:59 DC Morphine Sulfate (morPHINE 2MG SYG) 1 mg Q2H PRN IV SEVERE PAIN (7-10) 12/28/24 14:00 12/29/24 13:59 DC 12/28/24 17:05 1 MG Morphine Sulfate (morPHINE 2MG SYG) 2 mg Q4H PRN IVP SEVERE PAIN (7-10) 12/24/24 03:00 12/28/24 13:54 DC 12/26/24 02:43 2 MG Nitroglycerin (Nitroglycerin 1gm Oint) 0.5 inch Q8H5 TD 12/24/24 01:30 12/28/24 13:54 DC 12/27/24 12:57 0.5 INCH Nitroglycerin (Nitroglycerin 1gm Oint) 1 inch Q8H TD 01/04/25 15:00 02/03/25 14:59 01/07/25 06:41 1 INCH Nitroglycerin/ Dextrose 0 ml @ 0 mls/hr AD IV 12/28/24 14:00 12/31/24 14:00 DC Nitroglycerin/ Dextrose 0 ml @ 0 mls/hr AD PRN IV TITRATE 01/01/25 06:30 01/31/25 06:29 01/07/25 01:12 0 MLS/HR Norepinephrine Bitartrate 250 ml @ 0 mls/hr AD PRN IV TITRATE 12/27/24 11:00 01/26/25 10:59 01/04/25 06:14 0 MLS/HR Norepinephrine Bitartrate 8 mg/ Dextrose 250 ml @ 0 mls/hr AD PRN IV POST-OP CARDIOVASCULAR ORDERS 12/28/24 14:00 12/28/24 14:14 DC Ondansetron HCl (zoFRAN 4MG INJ) 4 mg Q6H PRN IV NAUSEA/VOMITING 12/24/24 03:00 12/28/24 13:54 DC Ondansetron HCl (zoFRAN 4MG INJ) 4 mg Q6H PRN IV NAUSEA/VOMITING 12/28/24 14:00 01/27/25 13:59 12/30/24 11:01 4 MG Pantoprazole Sodium (PROTonix 40MG INJ) 40 mg BID IVP 01/05/25 09:00 02/04/25 08:59 01/07/25 09:58 40 MG Pantoprazole Sodium (PROTonix 40MG INJ) 40 mg Q12H IVP 01/02/25 05:00 01/05/25 04:04 DC 01/04/25 16:00 40 MG Phenol (Sore Throat [place]) 1 SPRAY Q4H PRN PO SORE THROAT 01/06/25 10:30 02/05/25 10:29 01/06/25 16:37 1 SPRY Piperacillin Sod/ Tazobactam Sod (Zosyn 3.375gm+NS 50ml) 3.375 gm Q12H IV 12/30/24 15:30 01/05/25 04:05 DC 01/04/25 14:38 3.375 GM Piperacillin Sod/ Tazobactam Sod (Zosyn 3.375gm+NS 50ml) 3.375 gm Q12H IV 01/05/25 09:00 01/09/25 08:59 01/07/25 09:58 3.375 GM Potassium Phosphate 250 ml @ 42 mls/hr AD PRN IV LOW PHOS LEVEL 12/28/24 14:00 01/27/25 13:59 12/29/24 06:12 42 MLS/HR Potassium Chloride 100 ml @ 100 mls/hr AD PRN IV POTASSIUM PROTOCOL 12/26/24 15:00 12/28/24 13:54 DC Potassium Chloride 100 ml @ 100 mls/hr AD PRN IV HYPOKALEMIA 12/28/24 14:00 01/27/25 13:59 01/06/25 20:02 100 MLS/HR Potassium Chloride (K-Dur/Klor-Con 20meq) 20 meq AD PRN PO POTASSIUM PROTOCOL 12/26/24 15:00 12/28/24 13:54 DC 12/26/24 18:27 20 MEQ Potassium Chloride (KCl 10% Elixir 20meq/15ml) 20 meq AD PRN PO POTASSIUM PROTOCOL 12/26/24 15:00 12/28/24 13:54 DC Propofol 100 ml @ 0 mls/hr AD PRN IV SEDATION 12/28/24 14:00 01/01/25 13:59 DC Sodium Polystyrene Sulfonate (kayEXALate 15 GM/60 ML) 30 gm ONCE STAT PO 12/30/24 11:36 12/30/24 11:39 DC 12/30/24 11:45 30 GM Sodium Bicarbonate (Sodium Bicarb 50meq 50ml Vial) 50 meq AD PRN IV OTHER[SEE DOSING INSTRUCTIONS] 12/28/24 14:00 12/31/24 14:00 DC 12/30/24 12:45 100 MEQ Sodium Chloride 500 ml @ 0 mls/hr AD IV 12/28/24 14:00 01/27/25 13:59 Sodium Chloride 1,000 ml @ 10 mls/hr ONCE IV 12/28/24 14:00 12/29/24 13:59 DC 12/28/24 17:06 10 MLS/HR Sodium Chloride (NS Flush 10ml) 10 ml Q8H PRN IVP IV LINE FLUSH 12/28/24 14:00 01/27/25 13:59 Sodium Chloride (Sodium Chloride 3% Inh) 4 ML [id number] IH 01/04/25 12:00 02/03/25 11:59 01/07/25 06:24 4 ML Tramadol HCl (UltRAM) 25 mg Q6H PRN PO MODERATE PAIN (4-6) 12/28/24 14:00 12/29/24 13:56 DC 12/29/24 11:05 25 MG Tramadol HCl (UltRAM) 50 mg Q6H PRN PO SEVERE PAIN (7-10) 12/28/24 14:00 12/29/24 13:56 DC Vasopressin 20 units/Sodium Chloride 100 ml @ 0 mls/hr PROTOCOL IV 12/30/24 15:30 01/29/25 15:29 12/31/24 10:40 6 MLS/HR DIAGNOSTICS / RADIOLOGY: PATIENT: ZHEN IVEY MR#: [id number] : 1970 SEX: M AGE: 54 LOCATION: 2CH ORDER 2300 STATUS: ADM IN REPORT#: [id number] SERVICE [id number] REASON: chest tube ORDERING PHYSICIAN: BORIS LOW PROCEDURE: CXR1VW - CHEST 1VW CHEST 1VW REASON: chest tube COMPARISON: Prior chest radiograph from 01/05/2025 is available. FINDINGS: Single view of the chest was obtained. Lungs are clear. Heart size is normal with median sternotomy. There is a right-sided PICC catheter in place. There is a left-sided chest tube in place.. There is no pulmonary vascular congestion. Mediastinum and bony thorax appear unremarkable. IMPRESSION: 1. Status post median sternotomy with cardiac revascularization procedure 2. Support lines are in satisfactory position. 3. No evidence of airspace consolidation or pulmonary venous congestion. DICTATED BY: FRED NUNES MD DATE: 01/07/25 1032 ELECTRONICALLY SIGNED BY: FRED NUNES MD DATE: 01/07/25 103 ASSESSMENT: Multi-vessel coronary artery disease status post CABG 12/28/2024 Non-STEMI. 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 Hypertension. Anemia. ERICK possibly due to ATN PLAN: ACS NSTEMI due to Multi vessel CAD, s/p CABG Day 10 * Continue aspirin, atorvastatin * Continue argatroban and wean nitroglycerin GTT as per cardiology recommendation * Plan to start Clopidogrel on discharge, as per Cardiology consult * Encouraged to cough to clear the secretions and use p.r.n. 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, S/P LLE femoral thrombectomy * Patient has demarcating necrosis of the left toes and midfoot * Patient underwent left lower extremity femoral thrombectomy on 01/01, after finding monophasic waveforms be on popliteal artery by arterial Doppler * Continue atorvastatin and aspirin * Continue nitroglycerin paste as per tax assessor * Resume clopidogrel as DAPT prior to discharge * Monitor leg perfusion, pulses, swelling, and discoloration Anemia, post CABG * Patient received 4 units of packed RBCs * Patient hemoglobin is 9.8 today * Iron panel showed Iron 20, % Sat 5.5, TIBC 360 indicating Iron deficiency * Monitor CBC daily in the a.m. daily * Monitor for signs of bleeding Acute on chronic renal dysfunction * Patient urine output is currently 2 L * Monitor CBC and electrolytes in the a.m. daily * Avoid nephrotoxic agents GI prophylaxis with Protonix 40 mg IV Continue DVT prophylaxis with SCDs ATTESTATION BY PHYSICIAN I have seen and examined the patient. I reviewed the documentation, medical decision making, and treatment plan as noted by the resident provider above. I agree with the findings and plan of care. Arnulfo Rios MD, KEERTI K MD Jan 07, 2025 11:43
[2025-01-08] VITALS (59 sets, daily range): BP systolic 112–164; BP diastolic 47–116; PULSE 84–116; RESP 18–73; TEMP 98.6–99.2; O2SAT 96–100
[2025-01-08 04:51] LABS: NUCLEATED RED BLOOD CELLS 0.5 % (0.0-0.19); PLATELET COUNT (AUTO) 281.0 K/uL (130-400); RED BLOOD CELL COUNT(AUTO) 3.81 MIL/uL (4.50-6.20); RED CELL DISTRIBUTION WIDTH 26.7 % (11.0-15.5); WHITE BLOOD COUNT (AUTO) 8.7 K/uL (4.8-10.8)
[2025-01-08 05:06] LABS: ASPARTATE AMINOTRANSFERASE 53.0 U/L (10-37); CREATININE 7.5 mg/dL (0.5-1.3); GLOMERULAR FILTR. RATE CALC 8.0 mL/min (>90); GLUCOSE,RANDOM 124.0 mg/dL (70-105); PHOSPHORUS 7.1 mg/dL (2.5-4.9); SODIUM SERUM 136.0 mmol/L (136-145); TOTAL PROTEIN, SERUM 6.2 g/dL (6.0-8.3)
[2025-01-08 05:22] LABS: UREA NITROGEN, BLOOD 93.0 mg/dL (7-18)
--- NOTE | 2025-01-08 05:37 | PN ---
SUBJECTIVE: The patient is a very pleasant 54-year-old diabetic [place] male. Currently been afebrile at 98.1, pulse 78, respirations 18, blood pressure 106/87. White count 9.0, H and H 10.2 and 32.5, platelets 213. BUN and creatinine level 94 and 7.8. Outbound Sales Executive does not feel the patient requires renal replacement. The patient is currently receiving IV Zosyn. The patient has been standing up from the bed, getting into a chair with physical therapy with the use of a CAM walking boot on that left side. The patient is being followed for ischemic-appearing changes to the forefoot and midfoot on the left in the presence of strongly palpable pedal pulses on the right and strongly dopplerable pulses on the left. I have discussed the case with the Cardiology Service. They feel the patient does not have any peripheral vascular disease that needs any intervention based on his strongly palpable pedal pulses, feet bilaterally. OBJECTIVE: His examination today shows he has palpable pedal pulses on the right. His foot is cool. He has pulses that are audible by Doppler on the left. He has decreased edema to the left foot. He continues to have demarcating necrosis to the tips of all digits. He has ruborous and violaceous discoloration with resolving bulla to the dorsal and plantar aspects of his feet and an 11 cm proximally to the digits dorsally and 13 cm distal to the digits plantarly. The foot is cold to the touch, forefoot and midfoot. No evidence of any abscess or ascending cellulitis formation. ASSESSMENT: A 54-year-old male receiving argatroban since 12/31, status post CABG, status post left lower extremity thrombectomy and removal of an aortic balloon pump. The patient has acute renal failure, new onset atrial fibrillation, demarcating necrosis of the digits in the presence of dopplerable pedal pulses on the left. He has large bullous lesions, hemorrhagic to the dorsal and plantar aspects of his feet. He is receiving IV Zosyn. PLAN: Renal failure being monitored closely by the Nephrology Service. They feel there is no need for renal replacement therapy at this time. He is receiving anticoagulation therapy with argatroban. The patient has ruborous and violaceous discoloration with bullous lesions to the dorsal and plantar aspect of his left foot. They are resolving; however, he continues to have demarcating necrosis to the distal aspect of the digits 1, 2, 3, and now 4 and 5 on the left. We will continue to monitor the patient closely. The patient can ambulate with the use of a CAM walking boot with physical therapy with a walker. We will follow the patient closely while in-house. TID: [id number] RECEIPT: [id number]
[2025-01-08] MEDS ORDERED: ENOXAPARIN SODIUM 30 MG/0.3 ML SQ SCH (09:00)
--- NOTE | 2025-01-08 09:35 | PN ---
[facility] CARDIOLOGY PROGRESS NOTE Cardiology progress note dictated for Macey Nur MD Date Patient Seen: Jan 08, 2025 Problem List: ACSNSTEMI MVCAD LLE ALI status post thrombectomy and removal of IABP 12/31 Acute renal failure New onset atrial fibrillation, 1 hour duration (01/04), recurrence (01/08) for less than 10m Interval History: s/p CABG s/p LLE femoral thrombectomy Argatroban since 12/31 - The patient whispers to endorse a productive cough, and sternal discomfort with coughing. Is maintained on Lasix, Dobutamine and Argatroban infusions. Tridal gtt has been weaned. Negative urine output of -1054 mL. Creatinine of 7.5. Chest tube discontinued on 01/07 Physical Examination: GENERAL: No acute distress. Whispers to speak. NECK: R CVC LUNGS: Rhonchi bilaterally HEART: Irregularly irregular rate and rhythm. Normal S1 and S2 without murmurs, gallop or rub. VASC: LLE AT pulse by Doppler ABD: soft, nontender. SKIN: Left lower extremity blistering and blackened discoloration to LLE distal digits. sensation and motor intact NEURO: Awake, alert, moves all extremities. Laboratory: Hematology Labs: Test 01/08/25 04:18 01/07/25 03:32 Range/Units White Blood Count 8.7 4.8-10.8 K/uL Red Blood Count 3.81 L 4.50-6.20 MIL/uL Hemoglobin 10.1 L 14.0-18.0 g/dL Hematocrit 31.4 L 42-54 % Mean Corpuscular Volume 82.4 79-99 fL Mean Corpuscular Hemoglobin 26.5 L 27.0-33.0 pg Mean Corpuscular Hemoglobin Concent 32.2 32.0-36.0 g/dL Red Cell Distribution Width 26.7 H 11.0-15.5 % Platelet Count 281 # 130-400 K/uL Mean Platelet Volume 12.3 H 7.5-10.5 fL Nucleated Red Blood Cells 0.5 H 0.0-0.19 % Immature Granulocyte % (Auto) 1.4 H 0-1 % Neutrophils (%) (Auto) 69.7 40.0-77.0 % Lymphocytes (%) (Auto) 17.5 L 21.0-51.0 % Monocytes (%) (Auto) 7.8 3.0-13.0 % Eosinophils (%) (Auto) 3.3 0.0-8.0 % Basophils (%) (Auto) 0.3 0.0-5.0 % Neutrophils # (Auto) 6.4 1.8-7.7 K/uL Lymphocytes # (Auto) 1.6 1.0-4.8 K/uL Monocytes # (Auto) 0.7 0.1-1.0 K/uL Eosinophils # (Auto) 0.30 0.00-0.70 K/uL Basophils # (Auto) 0.03 0.00-0.20 K/uL Absolute Immature Granulocyte (auto 0.13 0-1 K/uL Chemistry Labs: Test 01/08/25 04:18 01/07/25 09:03 Range/Units Sodium Level 136 136-145 mmol/L Potassium Level 3.1 L 3.5-5.1 mmol/L Chloride Level 98 L 101-111 mmol/L Carbon Dioxide Level 25 21-32 mmol/L Blood Urea Nitrogen 93 *H 7-18 mg/dL Creatinine 7.5 H 0.5-1.3 mg/dL Glomerular Filtration Rate Calc 8 >90 mL/min Random Glucose 124 H 70-105 mg/dL Total Calcium 8.1 L 8.5-10.1 mg/dL Phosphorus Level 7.1 H 2.5-4.9 mg/dL Magnesium Level 2.10 1.80-2.40 mg/dL Total Bilirubin 0.7 0.2-1.0 mg/dL Aspartate Amino Transf (AST/SGOT) 53 H 10-37 U/L Alanine Aminotransferase (ALT/SGPT) 21 12-78 U/L Alkaline Phosphatase 106 50-136 U/L Total Protein 6.2 6.0-8.3 g/dL Albumin 1.8 L 3.5-5.0 g/dL Whole Blood Glucose 152 H 70-110 MG/DL Coagulation Labs: Test 01/07/25 08:09 Range/Units Activated Partial Thromboplast Time 55.3 H 26.3-35.5 SEC Diagnostics / Radiology: Impression and Plan: ACS-NSTEMI MVCAD s/p CABG with VG-RCA, VG-OM, TORRES-LAD and VG-distal LAD LLE ALI while IABP in place, status post femoral thrombectomy, placed on argatroban. Arterial duplex shows multi/biphasic waveforms to LLE. Post operative hypotension New onset atrial fibrillation with rapid ventricular response, converted. hx Hypertension ICMP LVEF 45-50 Anemia, stable. Acute renal failure Continue Aspirin and Atorvastatin, start Plavix 75mg daily due to ACS-NSTEMI on presentation We will need to discuss candidacy for therapeutic anticoagulation for postoperative AC due to pAF. Continue Amiodarone 100mg daily. CHF GDMT: Continue increased dose of metoprolol tartrate 50mg bid. Optimization is limited due to impaired renal function. Defer Lasix gtt to nephrology and CTS due to impaired renal function. Encouraged use of IS KIMBER JUAREZP Jan 08, 2025 09:35 MACEY NUR DO Jan 08, 2025 11:01
--- NOTE | 2025-01-08 10:24 | PN ---
NEPHROLOGY PROGRESS NOTE Date/Time Patient Seen: Jan 08, 2025 SUBJECTIVE: The patient is doing poorly. This patient has renal failure, which is worsening. The patient has coronary artery disease and CABG. The patient also has atrial fibrillation episode. The patient has been on diuretics as per surgical team. His urine output though has been maintained, but creatinine has been getting worse. Continues on Lasix drip Urine output was noted He is renal function continues to improve Electrolytes show hypokalemia He was seen in the ICU , in no acute distress REVIEW OF SYSTEMS: GENERAL: Negative for any nausea, vomiting, fevers, chills, or weight loss. NEUROLOGIC: Negative for any blurry vision, blind spots, double vision, facial asymmetry, dysphagia, dysarthria, hemiparesis, hemisensory deficits, vertigo, ataxia. HEENT: Negative for any head trauma, neck trauma, neck stiffness, photophobia, phonophobia, sinusitis, rhinitis. CARDIAC: Negative for any chest pain, dyspnea on exertion, paroxysmal nocturnal dyspnea, peripheral edema. PULMONARY: Negative for any shortness of breath, wheezing, COPD, or TB exposure. GASTROINTESTINAL: Negative for any abdominal pain, nausea, vomiting, bright red blood per rectum, melena. GENITOURINARY: Negative for any dysuria, hematuria, incontinence. INTEGUMENTARY: Negative for any rashes, cuts, insect bites. RHEUMATOLOGIC: Negative for any joint pains, photosensitive rashes, history of vasculitis or kidney problems. HEMATOLOGIC: Negative for any abnormal bruising, frequent infections or bleeding. Vital Signs (last 8hr) Date Time Temp Pulse Resp B/P (MAP) Pulse Ox O2 Delivery O2 Flow Rate FiO2 01/08/25 06:30 88 33 96 01/08/25 06:11 88 33 117/80 (92) 95 01/08/25 05:41 88 20 130/79 (96) 98 01/08/25 05:30 86 73 98 01/08/25 05:15 89 18 01/08/25 05:11 89 33 123/73 (90) 96 01/08/25 05:00 92 28 100 01/08/25 04:41 92 27 127/86 (100) 98 01/08/25 04:30 92 29 97 01/08/25 04:11 93 32 146/97 (113) 96 01/08/25 04:00 90 20 98 01/08/25 04:00 98 Room Air* 0 21 01/08/25 04:00 98.8 Room Air 01/08/25 03:41 95 34 144/91 (108) 96 01/08/25 03:30 93 33 98 01/08/25 03:11 93 20 140/92 (108) 96 01/08/25 03:00 92 21 96 01/08/25 02:41 87 34 131/84 (100) 94 01/08/25 02:30 87 35 97 PHYSICAL EXAM: GENERAL: Alert and oriented x 3. No acute distress. Well-nourished. EYES: EOMI. Anicteric. HENT: Moist mucous membranes. No scleral icterus. No cervical lymphadenopathy. LUNGS: Clear to auscultation bilaterally. No accessory muscle use. CARDIOVASCULAR: Regular rate and rhythm. No murmur. No JVD. ABDOMEN: Soft, non-tender and non-distended. No palpable masses. EXTREMITIES: No edema. Non-tender. SKIN: No rashes or lesions. Warm. NEUROLOGIC: No focal neurological deficits. CN II-XII grossly intact, but not individually tested. PSYCHIATRIC: Cooperative. Appropriate mood and affect. Current Medications Medications (Trade) Dose Ordered Sig/Mila Route PRN Reason Start Time Stop Time Status Last Admin Dose Admin Acetaminophen (TYLenol 325MG TAB) 650 mg Q4H PRN PO Temp >38.3C(AFTER EXTUBATION) 12/28/24 14:00 01/27/25 13:59 Acetaminophen (TYLenol 325MG TAB) 650 mg Q6H PRN PO MILD PAIN (1-3) 12/24/24 01:30 12/28/24 13:57 DC 12/27/24 23:45 650 MG Acetaminophen (TYLenol 325MG TAB) 650 mg Q6H PRN PO TEMPERATURE GREATER THAN 101.5 12/24/24 03:00 12/28/24 14:10 DC Acetaminophen (TYLenol 325MG TAB) 650 mg Q6H PRN PO MILD PAIN (1-3) 12/28/24 14:00 01/27/25 13:59 01/05/25 20:03 650 MG Acetaminophen (TYLenol 650MG SUPPOSITORY) 650 mg Q4H PRN RC Temp >38.3C WHILE INTUBATED 12/28/24 14:00 01/27/25 13:59 Acetaminophen (acetaMINOPHEN) 1,000 mg Q6H6 IV 12/28/24 18:00 12/29/24 17:59 DC 12/29/24 17:27 1,000 MG Acetaminophen (acetaMINOPHEN) 1,000 mg Q6H6 IVPB 12/30/24 00:00 12/31/24 20:14 DC 12/30/24 18:16 1,000 MG Albumin Human 250 ml @ 0 mls/hr AD PRN IV IF HEMODYNAMICALLY UNSTABLE 12/28/24 14:00 12/29/24 09:28 DC 12/29/24 09:28 250 MLS/HR Albuterol (DUOneb) 1 UDVIAL [id number] IH 01/01/25 18:00 01/01/25 15:25 DC Albuterol Sulfate (Proventil 0.083% 2.5mg/3ml) 2.5 mg ONCE STAT IH 12/30/24 10:22 12/30/24 10:32 DC 12/30/24 10:43 2.5 MG Aminocaproic Acid 52962 mg/Sodium Chloride 310 ml @ 25 mls/hr AD IV 12/28/24 14:00 12/28/24 14:14 DC Aminocaproic Acid 48799 mg/Sodium Chloride 480 ml @ 0 mls/hr AD PRN IV BLEEDING CONTROL 12/27/24 11:00 01/26/25 10:59 Amiodarone HCl (pacERONE 200MG) 200 mg DAILY PO 01/05/25 09:00 02/04/25 08:59 01/06/25 10:47 200 MG Amiodarone HCl 150 mg/Dextrose 103 ml @ 618 mls/hr ONCE IV 01/04/25 06:30 01/04/25 06:21 DC Amiodarone HCl 360 mg/Dextrose 207.2 ml @ 33.3 mls/hr AD IV 01/04/25 06:30 01/04/25 06:21 DC Amiodarone HCl 540 mg/Dextrose 310.8 ml @ 16.7 mls/hr [id number] IV 01/04/25 06:30 02/03/25 06:29 01/04/25 13:01 16.7 MLS/HR Argatroban 250 mg/ Sodium Chloride 250 ml @ 0 mls/hr PROTOCOL IV 12/31/24 16:30 01/30/25 16:29 12/31/24 22:32 2.61 MLS/HR Aspirin (Aspirin 81mg Ec Tab) 81 mg DAILY PO 12/24/24 09:00 01/23/25 08:59 01/06/25 09:27 81 MG Atorvastatin Calcium (LIPItor 40MG) 40 mg HS PO 12/24/24 21:00 01/01/25 11:16 DC 12/31/24 20:44 40 MG Benzocaine (Cepacol Sore Throat Lozenge) 1 each Q4H PRN MM SORE THROAT 01/03/25 13:30 02/02/25 13:29 01/06/25 11:16 1 EACH Bisacodyl (DulcoLAX) 10 mg DAILY PRN RC CONSTIPATION - MOM INEFFECTIVE 12/29/24 14:00 01/28/25 13:59 12/30/24 11:05 10 MG Calcium Gluconate 1 gm/Sodium Chloride 60 ml @ 200 mls/hr AD PRN IV HYPOCALCEMIA 12/28/24 14:00 01/27/25 13:59 01/01/25 01:52 200 MLS/HR Cefazolin Sodium (ANCEF 1 gm vial) 2 gm ONCALL IVP 12/26/24 16:30 12/26/24 16:28 DC Cefazolin Sodium (Ancef) 2 gm ONCALL PRN IVP SURGERY 12/26/24 16:30 12/28/24 13:57 DC Cefazolin Sodium (Ancef) 2 gm Q8H IVPB 12/28/24 19:00 12/29/24 11:01 DC 12/29/24 11:04 2 GM Dexmedetomidine/ Sodium Chloride (PRECEdex 400MCG/ 100ML-NS) 400 mcg PROTOCOL IV 12/28/24 14:00 12/29/24 13:59 DC 12/29/24 12:16 400 MCG Dexmedetomidine/ Sodium Chloride (PRECEdex 400MCG/ 100ML-NS) 400 mcg PROTOCOL IV 12/29/24 18:00 01/28/25 17:59 12/31/24 06:05 400 MCG Dextrose (D50w) 50 ml AD PRN IV HYPOGLYCEMIA PROTOCOL 12/28/24 14:00 01/27/25 13:59 Dextrose (D50w) 50 ml ONCE STAT IV 12/30/24 11:36 12/30/24 11:39 DC 12/30/24 11:45 50 ML Dextrose/Sodium Chloride 1,000 ml @ 50 mls/hr Q20H IV 12/30/24 11:30 01/01/25 16:17 DC 01/01/25 02:09 50 MLS/HR Dobutamine HCl/ Dextrose 250 ml @ 0 mls/hr PROTOCOL IV 12/29/24 14:00 01/28/25 13:59 01/05/25 08:48 4.1 MLS/HR Docusate Sodium (COLace 100MG CAP) 100 mg BID PO 12/28/24 21:00 12/29/24 08:01 DC 12/28/24 20:53 100 MG Docusate Sodium (COLace LIQUID 100MG/10ML) 100 mg BID PO 12/29/24 08:00 01/28/25 07:59 01/06/25 09:27 100 MG Enoxaparin Sodium (Lovenox) 30 mg DAILY SQ 12/31/24 09:00 12/31/24 16:12 DC Epinephrine HCl 10 mg/Sodium Chloride 250 ml @ 0 mls/hr AD PRN IV TITRATE 12/27/24 11:00 01/26/25 10:59 12/30/24 04:29 0 MLS/HR Epinephrine HCl 10 mg/Sodium Chloride 250 ml @ 0 mls/hr AD PRN IV POST-OP CARDIOVASCULAR ORDERS 12/28/24 14:00 12/28/24 14:14 DC Famotidine (Pepcid 20mg Vial) 20 mg BID IV 12/28/24 21:00 12/31/24 20:20 DC 12/31/24 08:51 20 MG Famotidine (Pepcid 20mg Vial) 20 mg Q48H IV 01/02/25 09:00 01/02/25 04:51 DC Famotidine (Pepcid 20mg Tab) 20 mg DAILY PO 12/24/24 09:00 12/28/24 13:54 DC 12/26/24 10:19 20 MG Furosemide (LASix 20MG TAB) 20 mg Q12H PO 12/30/24 09:00 12/30/24 08:34 DC Furosemide (LASix 20MG VIAL) 20 mg Q12H IV 12/29/24 09:00 12/30/24 08:34 DC 12/29/24 09:20 20 MG Furosemide 100 mg/ Sodium Chloride 100 ml @ 0 mls/hr PROTOCOL IV 12/29/24 14:30 01/28/25 14:29 01/03/25 16:54 2.5 MLS/HR Glucagon (Glucagon 1mg Kit) 1 mg AD PRN IM HYPOGLYCEMIA PROTOCOL 12/28/24 14:00 01/27/25 13:59 Guaifenesin/ Dextromethorphan (RobiTUSSin DM 200/20MG 10ML) 10 ml Q4H PRN PO COUGH 01/03/25 16:30 02/02/25 16:29 01/04/25 15:44 10 ML Heparin Sodium (Porcine) (HEParin 5,000 UNIT VIAL) *calculation based on ACTUAL B... AD PRN IV HEPARIN PROTOCOL 12/24/24 02:30 12/28/24 13:54 DC 12/24/24 17:32 5,000 UNIT Heparin Sodium/ Dextrose 250 ml @ 0 mls/hr Q6H IV 12/24/24 02:30 12/28/24 13:54 DC 12/27/24 17:04 11.3 MLS/HR Hydralazine HCl (APRESOLine 20MG INJ) 10 mg Q6H PRN IV For:SBP above 160;DBP above 90 12/24/24 03:00 12/28/24 13:54 DC Insulin Human Regular (humuLIN R 100 UNIT/ML 3ML) 10 unit ONCE STAT IV 12/30/24 11:42 12/30/24 11:45 DC 12/30/24 12:01 10 UNIT Insulin Human Regular (humuLIN R 100 UNIT/ML 3ML) 10 unit ONCE STAT SQ 12/30/24 11:36 12/30/24 11:43 DC Insulin Human Regular 100 unit/ Sodium Chloride 100 ml @ 0 mls/hr AD IV 12/28/24 14:00 12/29/24 17:55 DC 12/28/24 17:09 5 MLS/HR Ipratropium [place] (AtrovENT UD) 0.5 mg [id number] IH 12/30/24 12:00 01/29/25 11:59 01/06/25 12:01 0.5 MG Lactulose (Constulose 20gm/ 30ml Udcup) 20 gm BID PRN PO CONSTIPATION 12/24/24 03:00 12/28/24 13:54 DC 12/26/24 21:30 20 GM Lactulose (Constulose 20gm/ 30ml Udcup) 20 gm BID PRN PO CONSTIPATION 12/28/24 14:00 01/27/25 13:59 12/30/24 07:50 20 GM Lidocaine HCl/ Dextrose 250 ml @ 0 mls/hr AD PRN IV TITRATE 12/28/24 22:30 12/29/24 16:00 DC 12/29/24 06:53 15 MLS/HR Magnesium Hydroxide (Milk Of Magnesium 30ml) 30 ml DAILY PRN PO CONSTIPATION 12/28/24 14:00 01/27/25 13:59 12/30/24 10:18 30 ML Magnesium Sulfate 50 ml @ 12.5 mls/hr AD PRN IV MAG LEVEL LESS THAN 2.0 12/28/24 14:00 01/27/25 13:59 12/28/24 18:42 12.5 MLS/HR Magnesium Sulfate 50 ml @ 0 mls/hr PROTOCOL PRN IV MAGNESIUM PROTOCOL 12/26/24 15:00 12/28/24 14:10 DC Metolazone (zarOXOlyn) 5 mg ONCE PO 12/31/24 12:00 12/31/24 20:18 DC 12/31/24 12:01 5 MG Metolazone (zarOXOlyn) 5 mg ONCE PO 01/01/25 16:30 01/02/25 16:29 DC 01/01/25 16:53 5 MG Metoprolol Tartrate (loprESSOR) 12.5 mg BID PO 12/30/24 09:00 01/04/25 08:51 DC 01/03/25 20:09 12.5 MG Metoprolol Tartrate (loprESSOR) 25 mg BID PO 12/25/24 21:00 12/28/24 13:54 DC 12/28/24 09:28 25 MG Metoprolol Tartrate (loprESSOR) 25 mg TID PO 01/04/25 09:00 01/06/25 13:08 DC 01/06/25 09:27 25 MG Metoprolol Tartrate (loprESSOR) 50 mg BID PO 01/06/25 21:00 02/05/25 20:59 Morphine Sulfate (morPHINE 2MG SYG) 0.5 mg Q2H PRN IV MODERATE PAIN (4-6) 12/28/24 14:00 12/29/24 13:59 DC Morphine Sulfate (morPHINE 2MG SYG) 1 mg Q2H PRN IV SEVERE PAIN (7-10) 12/28/24 14:00 12/29/24 13:59 DC 12/28/24 17:05 1 MG Morphine Sulfate (morPHINE 2MG SYG) 2 mg Q4H PRN IVP SEVERE PAIN (7-10) 12/24/24 03:00 12/28/24 13:54 DC 12/26/24 02:43 2 MG Nitroglycerin (Nitroglycerin 1gm Oint) 0.5 inch Q8H5 TD 12/24/24 01:30 12/28/24 13:54 DC 12/27/24 12:57 0.5 INCH Nitroglycerin (Nitroglycerin 1gm Oint) 1 inch Q8H TD 01/04/25 15:00 02/03/25 14:59 01/06/25 15:40 1 INCH Nitroglycerin/ Dextrose 0 ml @ 0 mls/hr AD IV 12/28/24 14:00 12/31/24 14:00 DC Nitroglycerin/ Dextrose 0 ml @ 0 mls/hr AD PRN IV TITRATE 01/01/25 06:30 01/31/25 06:29 01/05/25 20:54 12 MLS/HR Norepinephrine Bitartrate 250 ml @ 0 mls/hr AD PRN IV TITRATE 12/27/24 11:00 01/26/25 10:59 01/04/25 06:14 0 MLS/HR Norepinephrine Bitartrate 8 mg/ Dextrose 250 ml @ 0 mls/hr AD PRN IV POST-OP CARDIOVASCULAR ORDERS 12/28/24 14:00 12/28/24 14:14 DC Ondansetron HCl (zoFRAN 4MG INJ) 4 mg Q6H PRN IV NAUSEA/VOMITING 12/24/24 03:00 12/28/24 13:54 DC Ondansetron HCl (zoFRAN 4MG INJ) 4 mg Q6H PRN IV NAUSEA/VOMITING 12/28/24 14:00 01/27/25 13:59 12/30/24 11:01 4 MG Pantoprazole Sodium (PROTonix 40MG INJ) 40 mg BID IVP 01/05/25 09:00 02/04/25 08:59 01/06/25 09:27 40 MG Pantoprazole Sodium (PROTonix 40MG INJ) 40 mg Q12H IVP 01/02/25 05:00 01/05/25 04:04 DC 01/04/25 16:00 40 MG Phenol (Sore Throat [place]) 1 SPRAY Q4H PRN PO SORE THROAT 01/06/25 10:30 02/05/25 10:29 01/06/25 16:37 1 SPRY Piperacillin Sod/ Tazobactam Sod (Zosyn 3.375gm+NS 50ml) 3.375 gm Q12H IV 12/30/24 15:30 01/05/25 04:05 DC 01/04/25 14:38 3.375 GM Piperacillin Sod/ Tazobactam Sod (Zosyn 3.375gm+NS 50ml) 3.375 gm Q12H IV 01/05/25 09:00 01/09/25 08:59 01/06/25 09:27 3.375 GM Potassium Phosphate 250 ml @ 42 mls/hr AD PRN IV LOW PHOS LEVEL 12/28/24 14:00 01/27/25 13:59 12/29/24 06:12 42 MLS/HR Potassium Chloride 100 ml @ 100 mls/hr AD PRN IV POTASSIUM PROTOCOL 12/26/24 15:00 12/28/24 13:54 DC Potassium Chloride 100 ml @ 100 mls/hr AD PRN IV HYPOKALEMIA 12/28/24 14:00 01/27/25 13:59 01/05/25 16:19 100 MLS/HR Potassium Chloride (K-Dur/Klor-Con 20meq) 20 meq AD PRN PO POTASSIUM PROTOCOL 12/26/24 15:00 12/28/24 13:54 DC 12/26/24 18:27 20 MEQ Potassium Chloride (KCl 10% Elixir 20meq/15ml) 20 meq AD PRN PO POTASSIUM PROTOCOL 12/26/24 15:00 12/28/24 13:54 DC Propofol 100 ml @ 0 mls/hr AD PRN IV SEDATION 12/28/24 14:00 01/01/25 13:59 DC Sodium Polystyrene Sulfonate (kayEXALate 15 GM/60 ML) 30 gm ONCE STAT PO 12/30/24 11:36 12/30/24 11:39 DC 12/30/24 11:45 30 GM Sodium Bicarbonate (Sodium Bicarb 50meq 50ml Vial) 50 meq AD PRN IV OTHER[SEE DOSING INSTRUCTIONS] 12/28/24 14:00 12/31/24 14:00 DC 12/30/24 12:45 100 MEQ Sodium Chloride 500 ml @ 0 mls/hr AD IV 12/28/24 14:00 01/27/25 13:59 Sodium Chloride 1,000 ml @ 10 mls/hr ONCE IV 12/28/24 14:00 12/29/24 13:59 DC 12/28/24 17:06 10 MLS/HR Sodium Chloride (NS Flush 10ml) 10 ml Q8H PRN IVP IV LINE FLUSH 12/28/24 14:00 01/27/25 13:59 Sodium Chloride (Sodium Chloride 3% Inh) 4 ML [id number] IH 01/04/25 12:00 02/03/25 11:59 01/06/25 12:01 4 ML Tramadol HCl (UltRAM) 25 mg Q6H PRN PO MODERATE PAIN (4-6) 12/28/24 14:00 12/29/24 13:56 DC 12/29/24 11:05 25 MG Tramadol HCl (UltRAM) 50 mg Q6H PRN PO SEVERE PAIN (7-10) 12/28/24 14:00 12/29/24 13:56 DC Vasopressin 20 units/Sodium Chloride 100 ml @ 0 mls/hr PROTOCOL IV 12/30/24 15:30 01/29/25 15:29 12/31/24 10:40 6 MLS/HR LABORATORY: [ ] Hematology Labs: Test 01/08/25 04:18 01/07/25 03:32 Range/Units White Blood Count 8.7 4.8-10.8 K/uL Red Blood Count 3.81 L 4.50-6.20 MIL/uL Hemoglobin 10.1 L 14.0-18.0 g/dL Hematocrit 31.4 L 42-54 % Mean Corpuscular Volume 82.4 79-99 fL Mean Corpuscular Hemoglobin 26.5 L 27.0-33.0 pg Mean Corpuscular Hemoglobin Concent 32.2 32.0-36.0 g/dL Red Cell Distribution Width 26.7 H 11.0-15.5 % Platelet Count 281 # 130-400 K/uL Mean Platelet Volume 12.3 H 7.5-10.5 fL Nucleated Red Blood Cells 0.5 H 0.0-0.19 % Immature Granulocyte % (Auto) 1.4 H 0-1 % Neutrophils (%) (Auto) 69.7 40.0-77.0 % Lymphocytes (%) (Auto) 17.5 L 21.0-51.0 % Monocytes (%) (Auto) 7.8 3.0-13.0 % Eosinophils (%) (Auto) 3.3 0.0-8.0 % Basophils (%) (Auto) 0.3 0.0-5.0 % Neutrophils # (Auto) 6.4 1.8-7.7 K/uL Lymphocytes # (Auto) 1.6 1.0-4.8 K/uL Monocytes # (Auto) 0.7 0.1-1.0 K/uL Eosinophils # (Auto) 0.30 0.00-0.70 K/uL Basophils # (Auto) 0.03 0.00-0.20 K/uL Absolute Immature Granulocyte (auto 0.13 0-1 K/uL Chemistry Labs: Test 01/08/25 04:18 01/07/25 09:03 Range/Units Sodium Level 136 136-145 mmol/L Potassium Level 3.1 L 3.5-5.1 mmol/L Chloride Level 98 L 101-111 mmol/L Carbon Dioxide Level 25 21-32 mmol/L Blood Urea Nitrogen 93 *H 7-18 mg/dL Creatinine 7.5 H 0.5-1.3 mg/dL Glomerular Filtration Rate Calc 8 >90 mL/min Random Glucose 124 H 70-105 mg/dL Total Calcium 8.1 L 8.5-10.1 mg/dL Phosphorus Level 7.1 H 2.5-4.9 mg/dL Magnesium Level 2.10 1.80-2.40 mg/dL Total Bilirubin 0.7 0.2-1.0 mg/dL Aspartate Amino Transf (AST/SGOT) 53 H 10-37 U/L Alanine Aminotransferase (ALT/SGPT) 21 12-78 U/L Alkaline Phosphatase 106 50-136 U/L Total Protein 6.2 6.0-8.3 g/dL Albumin 1.8 L 3.5-5.0 g/dL Whole Blood Glucose 152 H 70-110 MG/DL Coagulation Labs: Test 01/07/25 08:09 Range/Units Activated Partial Thromboplast Time 55.3 H 26.3-35.5 [facility] / RADIOLOGY: [facility] [address] [place] [address] IMAGING REPORT Signed PATIENT: ZHEN IVEY MR#: [id number] : 1970 SEX: M AGE: 54 LOCATION: 2CH ORDER 2300 STATUS: ADM IN REPORT#: [id number] SERVICE 0600 REASON: chest tube ORDERING PHYSICIAN: BORIS LOW PROCEDURE: CXR1VW - CHEST 1VW CHEST 1VW REASON: chest tube COMPARISON: Prior chest radiograph from 01/05/2025 is available. FINDINGS: Single view of the chest was obtained. Lungs are clear. Heart size is normal with median sternotomy. There is a right-sided PICC catheter in place. There is a left-sided chest tube in place.. There is no pulmonary vascular congestion. Mediastinum and bony thorax appear unremarkable. IMPRESSION: 1. Status post median sternotomy with cardiac revascularization procedure 2. Support lines are in satisfactory position. 3. No evidence of airspace consolidation or pulmonary venous congestion. DICTATED BY: FRED NUNES MD DATE: 01/07/25 1032 ELECTRONICALLY SIGNED BY: FRED NUNES MD DATE: 01/07/25 1035 PATIENT: ZHEN IVEY MR#: [id number] : 1970 SEX: M AGE: 54 LOCATION: 2CH ORDER 0808 STATUS: ADM IN REPORT#: [id number] SERVICE 0807 REASON: ischemic digits ORDERING PHYSICIAN: MACEY GALO DO PROCEDURE: ART U LE - US ARTERIAL UNILA LOW EXT DUPL EXAMINATION: DUPLEX ULTRASOUND EXAMINATION OF THE LEFT LOWER EXTREMITY ARTERIES. CLINICAL HISTORY: Pain. COMPARISON: Bilateral lower extremity arterial doppler dated 12/31/2024. FINDINGS: Peak systolic velocities within the left lower arteries are as follows: Common femoral artery: 217 cm/s. Superficial femoral artery: 45 cm/s at proximal, 47 cm/s at mid, and 45 cm/s at distal segments. Popliteal artery: 49 cm/s at proximal and 41 cm/s at distal segments. Posterior tibial artery: 38 cm/s. Anterior tibial artery: 28 cm/s. Dorsalis pedis artery: 55 cm/s. The left lower limb arteries demonstrate triphasic to biphasic waveforms in all arteries. There is intimal wall thickening and multilevel atherosclerosis in the left lower limb arteries. There is a hematoma that measures 2.6 x 2.7 cm adjacent to the left common femoral artery. IMPRESSION: Elevated velocity left inflow with drop in flow velocities suggesting mild to moderate inflow stenosis. Subcutaneous hematoma adjacent to the left common femoral artery. /[place] DICTATED BY: MATT DE LOS SANTOS MD DATE: 01/06/2558 ELECTRONICALLY SIGNED BY: MATT DE LOS SANTOS MD DATE: 01/06/2558 PATIENT: ZHEN IVEY MR#: [id number] : 1970 SEX: M AGE: 54 LOCATION: [facility] ORDER 15 STATUS: ADM IN REPORT#: [id number] SERVICE 111 REASON: post op hypotension/reassess LVEF ORDERING PHYSICIAN: TERRANCE ALVAREZ PROCEDURE: ECHO CMP - ECHO 2-D COMPLETE APPROVED REPORT EXAM: Two-dimensional and M-mode echocardiogram with Doppler and color Doppler. Study Details: CP , HTN INDICATION ICD: post op hypotension / reassess 2D Dimensions RVDd 4.5 cm LVEF(%) 34.1 (>50%) LVED Vol(simp.) 97.7 mL IVSd 0.9 (0.7-1.1cm) FS(%) 16 % LVES Vol(simp.) 76.8 mL LVDd 4.2 (3.8-5.6cm) LA (2D) 2.7 (1.6-4.0cm) LVEF(%, simp.) 21 % PWd 0.8 (0.7-1.1cm) Ao Root(2D) 2.8 (2.0-3.7cm) LA ESV INDEX (BP) 21.01 mL/m2 IVSs 1.1 cm LVOT diam 1.9 (1.8-2.4cm) LVDs 3.5 (2.5-4.0cm) PWs 1.1 cm Deformation Strain Apical 4 4.3 % Apical 2 1.6 % Apical 3 2.4 % Global Strain 2.4 % M-Mode Dimensions EPSS 1.2 cm LA (MM) 3.6 (1.6-4.0cm) Ao Root(MM) 3.2 (2.0-3.7cm) Aortic Valve AoV Vmax 1.0 m/s Ao Peak GR 4.1 mmHg LVOT Vmax 0.6 m/s AoV VTI 0.2 m Ao Mean GR 2.5 mmHg LVOT VTI 0.10 m MARGARITA (VMAX) 1.62 cm2 MARGARITA (VTI) 1.7 cm2 Mitral Valve MV E Vmax 54.6 cm/s DECEL Time 169 ms MV A Vmax 54.6 cm/s P 1/2 T 49 ms E/A ratio 1.0 MVA (PHT) 4.5 cm2 TDI E/E' Medial 13.7 E/E' Lateral 18.7 Medial E' Peak V 3.99 cm/s Lateral E' Peak V 2.92 cm/s Pulmonary Valve PV Vmax 0.5 m/s PV VTI 0.08 m PV Mean GR 0.7 mmHg PV Peak GR 1.0 mmHg Tricuspid Valve TR Vmax 2.5 m/s RVSP 25.3 mmHg TR Peak GR 25.3 mmHg Left Ventricle The left ventricle is mildly dilated. Hyopkinetic anterior wall and apex. Global strain of -25. There is moderate concentric left ventricular hypertrophy.. LVEF is 25-30%. 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 Indeterminate diastolic dysfunction. Right Ventricle The right ventricle is mildly dilated. Right ventricular systolic function is moderately to severely reduced. Atria The left atrium size is normal. The right atrium size is normal. Aortic Valve The aortic valve is not well visualized. No aortic regurgitation is present. There is mild valvular aortic stenosis. Mitral Valve The mitral valve is mildly thickened. There is no mitral valve regurgitation noted. There is no mitral valve stenosis. Tricuspid Valve Tricuspid valve is not well visualized. trace tricuspid regurgitation. Pulmonic Valve The pulmonary valve is normal in structure and function. There is no pulmonic valvular regurgitation. Great Vessels The aortic root is normal in size. IVC is not well visualized. Pericardium not well visualized Conclusion The left ventricle is mildly dilated. LVEF is 25-30%. Hyopkinetic anterior wall and apex. Global strain of -25. 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 DICTATED BY: CHEYENNE LANE MD DATE: 01/01/25 1448 ELECTRONICALLY SIGNED BY: CHEYENNE LANE MD DATE: 01/02/25 0846 PATIENT: ZHEN IVEY MR#: [id number] : 1970 SEX: M AGE: 54 LOCATION: [facility] ORDER 1343 STATUS: ADM IN REPORT#: [id number] SERVICE 1342 REASON: abdominal pain ORDERING PHYSICIAN: CHEYENNE HENSON PROCEDURE: ABDOMEN - US ABDOMINAL COMPLETE US ABDOMINAL COMPLETE REASON: 54-year-old male with abdominal pain COMPARISON: None FINDINGS: The visualized portion of the chest demonstrate there is small right-sided pleural effusion. There is grade 1 hepatic steatosis the liver.. The left lobe of the liver is obscured by overlying bowel gas. There are no focal mass lesions. The liver is not enlarged.There is a normal-appearing gallbladder. The gallbladder wall thickness is 0.1 cm. The common bile duct is normal size measuring 0.4 cm. Kidneys appear normal in size and appearance. The right kidney measures 9.8 x 4.3 x 4.9 cm. The left kidney measures 9.8 x 4.7 x 5.1 cm.. There is no evidence of mass, stone or hydronephrosis. Spleen appears normal. The spleen length is 9.7 cm.. Aorta and inferior vena cava appear normal. The pancreas is obscured by overlying bowel gas. IMPRESSION: Small right-sided pleural effusion Otherwise a normal upper abdomen sonogram.. DICTATED BY: FRED NUNES MD DATE: 12/30/24 1518 ELECTRONICALLY SIGNED BY: FRED NUNES MD DATE: 12/30/24 1524 ASSESSMENT: Acute renal failure Multiple electrolyte problems. CABG. Underlying anemia. Multiple other comorbidities including coronary artery disease, CABG, previous MT, hypertension, anemia PLAN: Labs, diagnostic, radiologic exams reviewed and interpreted by myself and supervising physician. We have reviewed external records in detail There is no need for emergent renal replacement therapy. Potassium replacement has been ordered Recommend transitioning Lasix to p.o. Require close monitoring of renal function and electrolytes Order CBC, CMP, and electrolytes in am Continue with antibiotics BiPAP as necessary, for respiratory distress IV pressors as needed Monitor blood pressure adjust medication doses as needed Avoid hypotensive episodes May use Dilaudid 0.5 mg IV every 6 hours as needed for severe pain Monitor blood sugars Strict intake, output, and daily weight should be monitored Please renally adjust medications Avoid nephrotoxic and nonsteroidal drugs Avoid contrast if possible Will continue to monitor renal function, anemia, electrolytes Treatment plan discussed with patient Questions were answered We have discussed with the other team physicians in detail about the care plan We will continue to monitor the patient closely Total critical care time spent with patient, nursing staff, critical care team over 35 minutes ATTESTATION BY PHYSICIAN I have seen and examined the patient. I reviewed the documentation, medical decision making, and treatment plan as noted by the mid-level provider above. I agree with the findings and plan of care. FREDDY KENT MD, [facility] Jan 08, 2025 10:24
--- NOTE | 2025-01-08 14:26 | PN ---
[facility] PROGRESS NOTE Date of Service: Jan 08, 2025 Time of Service: 14:26 SUBJECTIVE: This is a 54-year-old male who presented to [facility] with a non-STEMI. He underwent left heart catheterization which showed severe multi-vessel coronary artery disease with mid to apical inferior hypokinesis, LVEF 45-50%. He underwent echocardiogram 12/19/2024 which showed an ejection fraction of 55- 60%, mild LVH, normal-sized left atrium, mild mitral valve regurgitation and mild tricuspid valve regurgitation. He was transferred to [facility] for CABG. 12/25 patient remains admitted to the PCU, case discussed with the RN, no acute events overnight, he denied chest pain, shortness shortness for breath, no nausea, no vomiting, no abdominal discomfort. Cardiology input noted and appreciated, patient to continue aspirin 81 mg p.o. daily and atorvastatin 40 mg p.o. daily. Continue metoprolol tartrate 25 mg p.o. b.i.d.. Pending evaluation by CT surgery for consideration for CABG. Discussed with the patient. 12/26 patient remains admitted to the PCU, case discussed with the RN, no acute events overnight, the time of my visit the patient is comfortably in bed, alert oriented x3, eating breakfast, tolerating well, denies nausea, no vomiting, no abdominal discomfort, he denies chest pain, no shortness a breath. Remains on aspirin 81 mg p.o. daily, atorvastatin and metoprolol 25 mg p.o. b.i.d.. Pending evaluation by CT surgery for consideration of CABG. 12/27 patient is seen and examined at bedside, case discussed with the RN, no acute events overnight, currently the patient NPO, scheduled for CABG today by Cardiothoracic surgeon. We will continue to follow. 12/28 patient is seen and examined at bedside, case discussed with the RN, no acute events overnight, currently the patient NPO, scheduled for CABG today by Cardiothoracic surgeon. We will continue to follow. 12/29 patient is seen and examined at bedside, remains admitted to the ICU, postoperative day 1., status post CABG 12/28/2024, patient on insulin drip, nitroglycerin drip, alert oriented x3 following commands, however was mildly agitated earlier this morning, motion with the RN started on Precedex. Patient with chest tube in place. Further recommendations per Cardiothoracic surgeon. 12/30 patient remains admitted to the ICU, case discussed with the RN, patient remains confused, trying to pull his IV lines, remains on Precedex. Throughout the balloon pump in place, just to be breath, remains on epinephrine, Levophed, Lasix drip, dobutamine drip. Creatinine today at 3.0. Nephrology consultation requested, we will follow input and recommendation. Continue to monitor liver enzymes in a.m., follow ammonia level (at the time of my dictation less than 10). Continue to follow critical care input and recommendation. Prognosis remains guarded. 12/31 54-year-old male who was transferred from [facility] with a non- STEMI. He underwent left heart catheterization which showed severe multi-vessel coronary artery disease with mid to apical inferior hypokinesis, LVEF 45-50%. He underwent echocardiogram 12/19/2024 which showed an ejection fraction of 55- 60%, mild LVH, normal-sized left atrium, mild mitral valve regurgitation and mild tricuspid valve regurgitation. He was transferred to [facility] for CABG. Cardiothoracic surgeon consultation requested, patient underwent CABG 12/28/2024. Continue to follow Cardiothoracic input and recommendations. Patient has been mildly confused post procedure, started on Precedex. 01/01 54-year-old male who was transferred from [facility] with a non- STEMI. He underwent left heart catheterization which showed severe multi-vessel coronary artery disease with mid to apical inferior hypokinesis, LVEF 45-50%. He underwent echocardiogram 12/19/2024 which showed an ejection fraction of 55- 60%, mild LVH, normal-sized left atrium, mild mitral valve regurgitation and mild tricuspid valve regurgitation. He was transferred to [facility] for CABG. Cardiothoracic surgeon consultation requested, patient underwent CABG 12/28/2024. At the time of my visit resting comfortably in bed, off Precedex, following commands, status post interval removal of intra-aortic balloon pump yesterday, remains on dobutamine and nitroglycerin drip as well as argatroban. Continue to follow critical Care and Cardiothoracic input and recommendations. 01/02/25: Patient was evaluated at the bedside. Today is postop Day 5 and he is recovering well. Patient underwent thrombectomy in the femoral artery of left lower extremity and removal of intra-aortic balloon pump yesterday. Patient has mottled appearance in the left great toe and dorsalis pedis pulsations are present. His chest tube output was 320 mL over the last 24 hours. His stool was positive for occult blood and a GI consult has been placed. Cardiology advised to continue the current treatment. Patient is weaned off Levophed and is currently on Lasix, dobutamine, nitroglycerin, and argatroban drips. A swallow test will be performed today to evaluate the need for removing NG tube. 01/03/25: Patient was evaluated at the bedside, this is postop day 6 and is recovering well. Patient has mottled appearance in the left great toe extending into all the digits. Dorsalis pedis pulsations were diminished with palpation but detected on Doppler. His chest tube output was 310 mL today. A GI consult was placed for occult blood however no intervention was recommended and advised to continue Protonix 40 mg. Nephrology recommended no renal replacement as pat ient has good urine output,3 L today and is responding well to diuresis. Patient is continued on Lasix, dobutamine, nitroglycerin, and argatroban drips. NG tube was removed and patient was started on pureed heart healthy diet as tolerated. 01/04/2025: Patient was evaluated at the bedside, this is postop day 7. Patient had an episode of AFib with rapid ventricular response this morning and was cardioverted with amiodarone and continued on drip. Patient's left leg discoloration has improved, but still has diminished pulses only detected by Doppler. His chest tube output is 140 mL. Patient's ERICK has been worsening with creatinine 7.8 today however he has adequate urine output, 3.5 L today. Cardiology recommended to reduce Lasix drip to 2.5 and nephrology advised that patient's creatinine is stabilizing and renal function will improve in the next few days. Patient is still continuing on argatroban, nitro, and dobutamine drips. Otherwise patient has been recovering well tolerating pureed food and only complains of occasional throat pain due to cough. He was encouraged to cough to clear the chest secretions and use p.r.n. benzocaine spray for relief. His chest x-ray shows clearing pleural effusion and pulmonary edema. 01/05/2025: Patient was evaluated at the bedside and this is postop day. Patient has been in sinus rhythm since the AFib episode this morning. IV amiodarone was stopped and transitioned to p.o. 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 Single Stayer Operator recommended applying nitroglycerin paste and and covered it in dressing. Patient's ERICK continues to worsen, creatinine 8.2 today. However he is maintaining a good urine output, 2500 today. He has been weaning of Lasix drip. Patient has been encouraged to use incentive spirometry and cough as tolerated to clear the chest secretions. Chest x-ray showed no evidence of pulmonary venous congestion today. 01/06/2025: Patient was evaluated at the bedside, he was sitting comfortably in his chair. Patient has been in sinus rhythm. Patient continues on argatroban, Lasix, and dobutamine drips. Patient's ERICK seemed to be stabilizing his creat inine is 8.3 compared to 8.2 yesterday. Patient is maintaining good urine output, 2L in the last 24 hours. Patient's left foot was covered in dressing. Dr. Persaud evaluated the patient today and recommended walking boot with dressing if he is cleared by Cardiology for ambulation. His demarcating necrosis of the distal aspects of digits 1, 2, 3, and 4 on the left side seemed to be improving. Dr. Persaud recommended to continue nitroglycerin paste. Patient encouraged to use incentive spirometry and cough and was asked to use benzocaine for relief from throat pain. 01/07/2025 - patient seen at bedside in room 215 , patient is alert awake and oriented. Patient continues to be on argatroban, Lasix drips, his acute kidney injury possibly secondary to ATN secondary to hypotensive episode seems resolving while maintaining good urine output. Patient still complains of cough, pain in the left lower extremity. Patient's phosphorus trended down to 6.8 And anion gap closed down to 12 today. Patient currently hemodynamically stable and we will continue to monitor closely. 01/08/2025 Patient is seen and examined at the bedside. Awake alert and oriented and sitting comfortably in the chair. Argatroban drip is discontinued and patient is started on Heparin for DVT prophylaxis and Plavix 75 mg [for NSTEMI] by cardiology. Vitals blood pressure ranging in 110/80s, pulse rate 80s, respiratory rate in 20s to 30s, SpO2 greater than 95% on room air. Patient had an episode of AFib today. Currently in sinus rhythm. Chest tube and arterial line are discontinued as per CT is recommendations. Urine output 1.8 L. He still complains of productive cough, poor appetite. Labs hemoglobin stable at 10.1, potassium low at 3.1, BUN 93, creatinine improved from 7.9-7.5. Chest x-ray revealed no evidence of airspace consolidation or pulmonary venous congestion. REVIEW OF SYSTEMS CONSTITUTIONAL: Denies fevers, chills, or night sweats. No unintentional weight loss reported., Throat irritation NEUROLOGICAL: Denies headache, amaurosis fugax, motor weakness, sensory deficit, vertigo/spinning sensation, gait abnormalities, or tremors. CARDIOVASCULAR: Denies any exertional angina, dyspnea on exertion, orthopnea, paroxysmal nocturnal dyspnea, palpitations, life-threatening arrhythmias, claudication. PULMONARY: Denies any shortness of breath, hemoptysis, pleuritic chest pain. Patient has cough with clear sputum GASTROINTESTINAL: Denies any type of dysphagia to either liquids or solids. Denies nausea, vomiting, pyrosis, early satiety, abdominal pain, diarrhea, constipation, or changes in stool consistency or caliber. GENITOURINARY: Denies frequency, urgency, nocturia, hematuria or incontinence. Andres in place PHYSICAL EXAM GENERAL APPEARANCE: Patient is alert, oriented,sitting in a chair, with drips in place. NECK: Supple. No JVD. CHEST: Normal chest expansion. Telemetry in place. LUNGS: Absence of any rales, rhonchi or any wheezing. Chest tube in place. CARDIOVASCULAR: Regular. S1 and S2 normal. No appreciable rubs, murmurs or gallops. ABDOMEN: Soft, nontender, and nondistended. There is no rebound, voluntary guarding, or rigidity. : Deferred. No Andres. EXTREMITIES: LLE pulses present per Doppler. Vital Signs (last 8hr) Date Time Temp Pulse Resp B/P (MAP) Pulse Ox O2 Delivery O2 Flow Rate FiO2 01/08/25 13:40 85 27 N/A Room Air 01/08/25 12:30 92 30 134/87 (103) 97 01/08/25 12:00 98.6 Room Air 01/08/25 12:00 86 29 124/79 (94) 98 21 01/08/25 11:39 87 20 N/A Room Air 21 01/08/25 11:36 87 18 01/08/25 11:11 87 29 125/80 (95) 97 01/08/25 11:00 89 18 139/87 (104) 96 21 01/08/25 10:30 89 24 136/93 (107) 96 01/08/25 10:00 95 24 135/47 (76) 96 21 01/08/25 09:30 87 25 113/68 (83) 98 01/08/25 09:00 92 35 113/60 (77) 97 21 01/08/25 08:30 97 30 124/80 (95) 95 01/08/25 08:00 95 35 130/83 (99) 96 21 01/08/25 08:00 99.0 Room Air 01/08/25 07:30 99 27 131/94 (106) 98 01/08/25 07:00 116 38 112/82 (92) 98 21 01/08/25 06:30 88 33 96 LABS: Laboratory: Test 01/08/25 13:39 01/08/25 04:18 01/07/25 09:03 01/07/25 08:09 Range/Units Potassium Level 3.5 3.5-5.1 mmol/L White Blood Count 8.7 4.8-10.8 K/uL Red Blood Count 3.81 L 4.50-6.20 MIL/uL Hemoglobin 10.1 L 14.0-18.0 g/dL Hematocrit 31.4 L 42-54 % Mean Corpuscular Volume 82.4 79-99 fL Mean Corpuscular Hemoglobin 26.5 L 27.0-33.0 pg Mean Corpuscular Hemoglobin Concent 32.2 32.0-36.0 g/dL Red Cell Distribution Width 26.7 H 11.0-15.5 % Platelet Count 281 # 130-400 K/uL Mean Platelet Volume 12.3 H 7.5-10.5 fL Nucleated Red Blood Cells 0.5 H 0.0-0.19 % Sodium Level 136 136-145 mmol/L Chloride Level 98 L 101-111 mmol/L Carbon Dioxide Level 25 21-32 mmol/L Blood Urea Nitrogen 93 *H 7-18 mg/dL Creatinine 7.5 H 0.5-1.3 mg/dL Glomerular Filtration Rate Calc 8 >90 mL/min Random Glucose 124 H 70-105 mg/dL Total Calcium 8.1 L 8.5-10.1 mg/dL Phosphorus Level 7.1 H 2.5-4.9 mg/dL Magnesium Level 2.10 1.80-2.40 mg/dL Total Bilirubin 0.7 0.2-1.0 mg/dL Aspartate Amino Transf (AST/SGOT) 53 H 10-37 U/L Alanine Aminotransferase (ALT/SGPT) 21 12-78 U/L Alkaline Phosphatase 106 50-136 U/L Total Protein 6.2 6.0-8.3 g/dL Albumin 1.8 L 3.5-5.0 g/dL Whole Blood Glucose 152 H 70-110 MG/DL Activated Partial Thromboplast Time 55.3 H 26.3-35.5 SEC Test 01/07/25 03:32 Range/Units Immature Granulocyte % (Auto) 1.4 H 0-1 % Neutrophils (%) (Auto) 69.7 40.0-77.0 % Lymphocytes (%) (Auto) 17.5 L 21.0-51.0 % Monocytes (%) (Auto) 7.8 3.0-13.0 % Eosinophils (%) (Auto) 3.3 0.0-8.0 % Basophils (%) (Auto) 0.3 0.0-5.0 % Neutrophils # (Auto) 6.4 1.8-7.7 K/uL Lymphocytes # (Auto) 1.6 1.0-4.8 K/uL Monocytes # (Auto) 0.7 0.1-1.0 K/uL Eosinophils # (Auto) 0.30 0.00-0.70 K/uL Basophils # (Auto) 0.03 0.00-0.20 K/uL Absolute Immature Granulocyte (auto 0.13 0-1 K/uL Current Medications Medications (Trade) Dose Ordered Sig/Mila Route PRN Reason Start Time Stop Time Status Last Admin Dose Admin Acetaminophen (TYLenol 325MG TAB) 650 mg Q4H PRN PO Temp >38.3C(AFTER EXTUBATION) 12/28/24 14:00 01/27/25 13:59 Acetaminophen (TYLenol 325MG TAB) 650 mg Q6H PRN PO MILD PAIN (1-3) 12/24/24 01:30 12/28/24 13:57 DC 12/27/24 23:45 650 MG Acetaminophen (TYLenol 325MG TAB) 650 mg Q6H PRN PO TEMPERATURE GREATER THAN 101.5 12/24/24 03:00 12/28/24 14:10 DC Acetaminophen (TYLenol 325MG TAB) 650 mg Q6H PRN PO MILD PAIN (1-3) 12/28/24 14:00 01/27/25 13:59 01/05/25 20:03 650 MG Acetaminophen (TYLenol 650MG SUPPOSITORY) 650 mg Q4H PRN RC Temp >38.3C WHILE INTUBATED 12/28/24 14:00 01/07/25 19:35 DC Acetaminophen (acetaMINOPHEN) 1,000 mg Q6H6 IV 12/28/24 18:00 12/29/24 17:59 DC 12/29/24 17:27 1,000 MG Acetaminophen (acetaMINOPHEN) 1,000 mg Q6H6 IVPB 12/30/24 00:00 12/31/24 20:14 DC 12/30/24 18:16 1,000 MG Albumin Human 250 ml @ 0 mls/hr AD PRN IV IF HEMODYNAMICALLY UNSTABLE 12/28/24 14:00 12/29/24 09:28 DC 12/29/24 09:28 250 MLS/HR Albuterol (DUOneb) 1 UDVIAL [id number] IH 01/01/25 18:00 01/01/25 15:25 DC Albuterol Sulfate (Proventil 0.083% 2.5mg/3ml) 2.5 mg ONCE STAT IH 12/30/24 10:22 12/30/24 10:32 DC 12/30/24 10:43 2.5 MG Aminocaproic Acid 66992 mg/Sodium Chloride 310 ml @ 25 mls/hr AD IV 12/28/24 14:00 12/28/24 14:14 DC Aminocaproic Acid 33825 mg/Sodium Chloride 480 ml @ 0 mls/hr AD PRN IV BLEEDING CONTROL 12/27/24 11:00 01/07/25 19:35 DC Amiodarone HCl (pacERONE 200MG) 200 mg DAILY PO 01/05/25 09:00 02/04/25 08:59 01/08/25 09:03 200 MG Amiodarone HCl 150 mg/Dextrose 103 ml @ 618 mls/hr ONCE IV 01/04/25 06:30 01/04/25 06:21 DC Amiodarone HCl 360 mg/Dextrose 207.2 ml @ 33.3 mls/hr AD IV 01/04/25 06:30 01/04/25 06:21 DC Amiodarone HCl 540 mg/Dextrose 310.8 ml @ 16.7 mls/hr [id number] IV 01/04/25 06:30 02/03/25 06:29 01/04/25 13:01 16.7 MLS/HR Apixaban (EliquIS) 5 mg HS PO 01/07/25 21:00 01/07/25 19:35 DC Argatroban 250 mg/ Sodium Chloride 250 ml @ 0 mls/hr PROTOCOL IV 12/31/24 16:30 01/07/25 19:30 DC 01/07/25 16:32 4.17 MLS/HR Aspirin (Aspirin 81mg Ec Tab) 81 mg DAILY PO 12/24/24 09:00 01/23/25 08:59 01/08/25 09:03 81 MG Atorvastatin Calcium (LIPItor 40MG) 40 mg HS PO 12/24/24 21:00 01/01/25 11:16 DC 12/31/24 20:44 40 MG Atorvastatin Calcium (LIPItor 40MG) 40 mg HS PO 01/07/25 21:00 02/06/25 20:59 01/07/25 21:05 40 MG Benzocaine (Cepacol Sore Throat Lozenge) 1 each Q4H PRN MM SORE THROAT 01/03/25 13:30 02/02/25 13:29 01/06/25 11:16 1 EACH Bisacodyl (DulcoLAX) 10 mg DAILY PRN RC CONSTIPATION - MOM INEFFECTIVE 12/29/24 14:00 01/28/25 13:59 12/30/24 11:05 10 MG Calcium Gluconate 1 gm/Sodium Chloride 60 ml @ 200 mls/hr AD PRN IV HYPOCALCEMIA 12/28/24 14:00 01/27/25 13:59 01/01/25 01:52 200 MLS/HR Cefazolin Sodium (ANCEF 1 gm vial) 2 gm ONCALL IVP 12/26/24 16:30 12/26/24 16:28 DC Cefazolin Sodium (Ancef) 2 gm ONCALL PRN IVP SURGERY 12/26/24 16:30 12/28/24 13:57 DC Cefazolin Sodium (Ancef) 2 gm Q8H IVPB 12/28/24 19:00 12/29/24 11:01 DC 12/29/24 11:04 2 GM Clopidogrel Bisulfate (plaVIX 75MG) 75 mg DAILY PO 01/08/25 09:00 02/07/25 08:59 01/08/25 09:05 75 MG Dexmedetomidine/ Sodium Chloride (PRECEdex 400MCG/ 100ML-NS) 400 mcg PROTOCOL IV 12/28/24 14:00 12/29/24 13:59 DC 12/29/24 12:16 400 MCG Dexmedetomidine/ Sodium Chloride (PRECEdex 400MCG/ 100ML-NS) 400 mcg PROTOCOL IV 12/29/24 18:00 01/28/25 17:59 12/31/24 06:05 400 MCG Dextrose (D50w) 50 ml AD PRN IV HYPOGLYCEMIA PROTOCOL 12/28/24 14:00 01/27/25 13:59 Dextrose (D50w) 50 ml ONCE STAT IV 12/30/24 11:36 12/30/24 11:39 DC 12/30/24 11:45 50 ML Dextrose/Sodium Chloride 1,000 ml @ 50 mls/hr Q20H IV 12/30/24 11:30 01/01/25 16:17 DC 01/01/25 02:09 50 MLS/HR Dobutamine HCl/ Dextrose 250 ml @ 0 mls/hr PROTOCOL IV 12/29/24 14:00 01/28/25 13:59 01/05/25 08:48 4.1 MLS/HR Docusate Sodium (COLace 100MG CAP) 100 mg BID PO 12/28/24 21:00 12/29/24 08:01 DC 12/28/24 20:53 100 MG Docusate Sodium (COLace LIQUID 100MG/10ML) 100 mg BID PO 12/29/24 08:00 01/28/25 07:59 01/08/25 09:04 100 MG Enoxaparin Sodium (Lovenox) 30 mg DAILY SQ 12/31/24 09:00 12/31/24 16:12 DC Enoxaparin Sodium (Lovenox) 30 mg DAILY SQ 01/08/25 09:00 01/07/25 20:03 DC Epinephrine HCl 10 mg/Sodium Chloride 250 ml @ 0 mls/hr AD PRN IV TITRATE 12/27/24 11:00 01/26/25 10:59 12/30/24 04:29 0 MLS/HR Epinephrine HCl 10 mg/Sodium Chloride 250 ml @ 0 mls/hr AD PRN IV POST-OP CARDIOVASCULAR ORDERS 12/28/24 14:00 12/28/24 14:14 DC Famotidine (Pepcid 20mg Vial) 20 mg BID IV 12/28/24 21:00 12/31/24 20:20 DC 12/31/24 08:51 20 MG Famotidine (Pepcid 20mg Vial) 20 mg Q48H IV 01/02/25 09:00 01/02/25 04:51 DC Famotidine (Pepcid 20mg Tab) 20 mg DAILY PO 12/24/24 09:00 12/28/24 13:54 DC 12/26/24 10:19 20 MG Furosemide (LASix 20MG TAB) 20 mg Q12H PO 12/30/24 09:00 12/30/24 08:34 DC Furosemide (LASix 20MG VIAL) 20 mg Q12H IV 12/29/24 09:00 12/30/24 08:34 DC 12/29/24 09:20 20 MG Furosemide (LASix 40MG VIAL) 40 mg Q12H IV 01/08/25 20:00 02/07/25 19:59 Furosemide 100 mg/ Sodium Chloride 100 ml @ 0 mls/hr PROTOCOL IV 12/29/24 14:30 01/08/25 13:45 DC 01/07/25 08:41 0 MLS/HR Glucagon (Glucagon 1mg Kit) 1 mg AD PRN IM HYPOGLYCEMIA PROTOCOL 12/28/24 14:00 01/27/25 13:59 Guaifenesin (MUCinex 600 MG TABLET.ER) 600 mg BID PRN PO COUGH 01/08/25 09:30 02/07/25 09:29 Guaifenesin/ Dextromethorphan (RobiTUSSin DM 200/20MG 10ML) 10 ml Q4H PRN PO COUGH 01/03/25 16:30 01/08/25 09:29 DC 01/07/25 08:25 10 ML Heparin Sodium (Porcine) (HEParin 5,000 UNIT VIAL) *calculation based on ACTUAL B... AD PRN IV HEPARIN PROTOCOL 12/24/24 02:30 12/28/24 13:54 DC 12/24/24 17:32 5,000 UNIT Heparin Sodium (Porcine) (HEParin 5,000 UNIT VIAL) 5,000 unit BID SQ 01/08/25 09:00 02/07/25 08:59 01/08/25 09:07 5,000 UNIT Heparin Sodium/ Dextrose 250 ml @ 0 mls/hr Q6H IV 12/24/24 02:30 12/28/24 13:54 DC 12/27/24 17:04 11.3 MLS/HR Hydralazine HCl (APRESOLine 20MG INJ) 10 mg Q6H PRN IV For:SBP above 160;DBP above 90 12/24/24 03:00 12/28/24 13:54 DC Insulin Human Regular (humuLIN R 100 UNIT/ML 3ML) 10 unit ONCE STAT IV 12/30/24 11:42 12/30/24 11:45 DC 12/30/24 12:01 10 UNIT Insulin Human Regular (humuLIN R 100 UNIT/ML 3ML) 10 unit ONCE STAT SQ 12/30/24 11:36 12/30/24 11:43 DC Insulin Human Regular 100 unit/ Sodium Chloride 100 ml @ 0 mls/hr AD IV 12/28/24 14:00 12/29/24 17:55 DC 12/28/24 17:09 5 MLS/HR Ipratropium Diamond (AtrovENT UD) 0.5 mg [id number] IH 12/30/24 12:00 01/29/25 11:59 01/08/25 11:36 0.5 MG Lactulose (Constulose 20gm/ 30ml Udcup) 20 gm BID PRN PO CONSTIPATION 12/24/24 03:00 12/28/24 13:54 DC 12/26/24 21:30 20 GM Lactulose (Constulose 20gm/ 30ml Udcup) 20 gm BID PRN PO CONSTIPATION 12/28/24 14:00 01/27/25 13:59 12/30/24 07:50 20 GM Lidocaine HCl/ Dextrose 250 ml @ 0 mls/hr AD PRN IV TITRATE 12/28/24 22:30 12/29/24 16:00 DC 12/29/24 06:53 15 MLS/HR Magnesium Hydroxide (Milk Of Magnesium 30ml) 30 ml DAILY PRN PO CONSTIPATION 12/28/24 14:00 01/27/25 13:59 12/30/24 10:18 30 ML Magnesium Sulfate 50 ml @ 12.5 mls/hr AD PRN IV MAG LEVEL LESS THAN 2.0 12/28/24 14:00 01/27/25 13:59 12/28/24 18:42 12.5 MLS/HR Magnesium Sulfate 50 ml @ 0 mls/hr PROTOCOL PRN IV MAGNESIUM PROTOCOL 12/26/24 15:00 12/28/24 14:10 DC Metolazone (zarOXOlyn) 5 mg ONCE PO 12/31/24 12:00 12/31/24 20:18 DC 12/31/24 12:01 5 MG Metolazone (zarOXOlyn) 5 mg ONCE PO 01/01/25 16:30 01/02/25 16:29 DC 01/01/25 16:53 5 MG Metoprolol Tartrate (loprESSOR) 12.5 mg BID PO 12/30/24 09:00 01/04/25 08:51 DC 01/03/25 20:09 12.5 MG Metoprolol Tartrate (loprESSOR) 25 mg BID PO 12/25/24 21:00 12/28/24 13:54 DC 12/28/24 09:28 25 MG Metoprolol Tartrate (loprESSOR) 25 mg TID PO 01/04/25 09:00 01/06/25 13:08 DC 01/06/25 09:27 25 MG Metoprolol Tartrate (loprESSOR) 50 mg BID PO 01/06/25 21:00 02/05/25 20:59 01/08/25 09:03 50 MG Morphine Sulfate (morPHINE 2MG SYG) 0.5 mg Q2H PRN IV MODERATE PAIN (4-6) 12/28/24 14:00 12/29/24 13:59 DC Morphine Sulfate (morPHINE 2MG SYG) 1 mg Q2H PRN IV SEVERE PAIN (7-10) 12/28/24 14:00 12/29/24 13:59 DC 12/28/24 17:05 1 MG Morphine Sulfate (morPHINE 2MG SYG) 2 mg Q4H PRN IVP SEVERE PAIN (7-10) 12/24/24 03:00 12/28/24 13:54 DC 12/26/24 02:43 2 MG Nitroglycerin (Nitroglycerin 1gm Oint) 0.5 inch Q8H5 TD 12/24/24 01:30 12/28/24 13:54 DC 12/27/24 12:57 0.5 INCH Nitroglycerin (Nitroglycerin 1gm Oint) 1 inch Q8H TD 01/04/25 15:00 02/03/25 14:59 01/08/25 09:04 1 INCH Nitroglycerin/ Dextrose 0 ml @ 0 mls/hr AD IV 12/28/24 14:00 12/31/24 14:00 DC Nitroglycerin/ Dextrose 0 ml @ 0 mls/hr AD PRN IV TITRATE 01/01/25 06:30 01/31/25 06:29 01/07/25 01:12 0 MLS/HR Norepinephrine Bitartrate 250 ml @ 0 mls/hr AD PRN IV TITRATE 12/27/24 11:00 01/26/25 10:59 01/04/25 06:14 0 MLS/HR Norepinephrine Bitartrate 8 mg/ Dextrose 250 ml @ 0 mls/hr AD PRN IV POST-OP CARDIOVASCULAR ORDERS 12/28/24 14:00 12/28/24 14:14 DC Nystatin (NYSTatin 867117 UNIT/ML 5ML UDCUP) 10 ml TID PO 01/07/25 21:00 02/06/25 20:59 01/08/25 09:03 10 ML Ondansetron HCl (zoFRAN 4MG INJ) 4 mg Q6H PRN IV NAUSEA/VOMITING 12/24/24 03:00 12/28/24 13:54 DC Ondansetron HCl (zoFRAN 4MG INJ) 4 mg Q6H PRN IV NAUSEA/VOMITING 12/28/24 14:00 01/27/25 13:59 12/30/24 11:01 4 MG Pantoprazole Sodium (PROTonix 40MG INJ) 40 mg BID IVP 01/05/25 09:00 02/04/25 08:59 01/08/25 09:03 40 MG Pantoprazole Sodium (PROTonix 40MG INJ) 40 mg Q12H IVP 01/02/25 05:00 01/05/25 04:04 DC 01/04/25 16:00 40 MG Phenol (Sore Throat [place]) 1 SPRAY Q4H PRN PO SORE THROAT 01/06/25 10:30 02/05/25 10:29 01/06/25 16:37 1 SPRY Piperacillin Sod/ Tazobactam Sod (Zosyn 3.375gm+NS 50ml) 3.375 gm Q12H IV 12/30/24 15:30 01/05/25 04:05 DC 01/04/25 14:38 3.375 GM Piperacillin Sod/ Tazobactam Sod (Zosyn 3.375gm+NS 50ml) 3.375 gm Q12H IV 01/05/25 09:00 01/09/25 08:59 01/08/25 09:03 3.375 GM Potassium Phosphate 250 ml @ 42 mls/hr AD PRN IV LOW PHOS LEVEL 12/28/24 14:00 01/27/25 13:59 12/29/24 06:12 42 MLS/HR Potassium Chloride 100 ml @ 100 mls/hr AD PRN IV POTASSIUM PROTOCOL 12/26/24 15:00 12/28/24 13:54 DC Potassium Chloride 100 ml @ 100 mls/hr AD PRN IV HYPOKALEMIA 12/28/24 14:00 01/27/25 13:59 01/06/25 20:02 100 MLS/HR Potassium Chloride 100 ml @ 100 mls/hr AD PRN IV POTASSIUM PROTOCOL 01/08/25 08:30 02/07/25 08:29 Potassium Chloride (K-Dur/Klor-Con 20meq) 20 meq AD PRN PO POTASSIUM PROTOCOL 12/26/24 15:00 12/28/24 13:54 DC 12/26/24 18:27 20 MEQ Potassium Chloride (KCl 10% Elixir 20meq/15ml) 20 meq AD PRN PO POTASSIUM PROTOCOL 12/26/24 15:00 12/28/24 13:54 DC Propofol 100 ml @ 0 mls/hr AD PRN IV SEDATION 12/28/24 14:00 01/01/25 13:59 DC Sodium Polystyrene Sulfonate (kayEXALate 15 GM/60 ML) 30 gm ONCE STAT PO 12/30/24 11:36 12/30/24 11:39 DC 12/30/24 11:45 30 GM Sodium Bicarbonate (Sodium Bicarb 50meq 50ml Vial) 50 meq AD PRN IV OTHER[SEE DOSING INSTRUCTIONS] 12/28/24 14:00 12/31/24 14:00 DC 12/30/24 12:45 100 MEQ Sodium Chloride 500 ml @ 0 mls/hr AD IV 12/28/24 14:00 01/27/25 13:59 Sodium Chloride 1,000 ml @ 10 mls/hr ONCE IV 12/28/24 14:00 12/29/24 13:59 DC 12/28/24 17:06 10 MLS/HR Sodium Chloride (NS Flush 10ml) 10 ml Q8H PRN IVP IV LINE FLUSH 12/28/24 14:00 01/27/25 13:59 Sodium Chloride (Sodium Chloride 3% Inh) 4 ML [id number] IH 01/04/25 12:00 02/03/25 11:59 01/08/25 11:36 4 ML Tramadol HCl (UltRAM) 25 mg Q6H PRN PO MODERATE PAIN (4-6) 12/28/24 14:00 12/29/24 13:56 DC 12/29/24 11:05 25 MG Tramadol HCl (UltRAM) 50 mg Q6H PRN PO SEVERE PAIN (7-10) 12/28/24 14:00 12/29/24 13:56 DC Vasopressin 20 units/Sodium Chloride 100 ml @ 0 mls/hr PROTOCOL IV 12/30/24 15:30 01/29/25 15:29 12/31/24 10:40 6 MLS/HR DIAGNOSTICS / RADIOLOGY: SERVICE 0600 REASON: chest tube ORDERING PHYSICIAN: BORIS LOW PROCEDURE: CXR1VW - CHEST 1VW CHEST 1VW REASON: chest tube COMPARISON: Prior chest radiograph from 01/05/2025 is available. FINDINGS: Single view of the chest was obtained. Lungs are clear. Heart size is normal with median sternotomy. There is a right-sided PICC catheter in place. There is a left-sided chest tube in place.. There is no pulmonary vascular congestion. Mediastinum and bony thorax appear unremarkable. IMPRESSION: 1. Status post median sternotomy with cardiac revascularization procedure 2. Support lines are in satisfactory position. 3. No evidence of airspace consolidation or pulmonary venous congestion. ASSESSMENT: Multi-vessel coronary artery disease status post CABG 12/28/2024 Non-STEMI. 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 Hypertension. Anemia. ERICK possibly due to ATN New onset atrial fibrillation, not POA PLAN: ACS NSTEMI due to Multi vessel CAD, s/p CABG Day 10 * Continue aspirin, atorvastatin * Argatroban drip is stopped and patient is started on clopidogrel by Cardiology * Encouraged to use IS and to clear the secretions and use p.r.n. 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, S/P LLE femoral thrombectomy * Patient has demarcating necrosis of the left toes and midfoot * Patient underwent left lower extremity femoral thrombectomy on 01/01, after finding monophasic waveforms be on popliteal artery by arterial Doppler * Continue atorvastatin and aspirin * Continue nitroglycerin paste as per auto suspension and steering mechanic * can ambulate with the use of a CAM walking boot with physical therapy with a walker as per podiatry consult * Monitor leg perfusion, pulses, swelling, and discoloration Anemia, post CABG * Patient received 4 units of packed RBCs * Patient hemoglobin is 10.1 today * Iron panel showed Iron 20, % Sat 5.5, TIBC 360 indicating Iron deficiency, received 2 doses of IV Venofer * Monitor CBC daily in the a.m. daily * Monitor for signs of bleeding Acute on chronic renal dysfunction * Patient urine output is currently 1.8 L * Creatinine Improved from 7.9-7.5 today * Monitor CBC and electrolytes in the a.m. daily * Avoid nephrotoxic agents New onset atrial fibrillation, not POA Amiodarone 200 mg p.o. as per Cardiology recommendation Currently in sinus rhythm GI prophylaxis with Protonix 40 mg IV Continue DVT prophylaxis with heparin 5000 SQ b.i.d. ATTESTATION BY PHYSICIAN I have seen and examined the patient. I reviewed the documentation, medical decision making, and treatment plan as noted by the resident above. I agree with the findings and plan of care. Arnulfo Rios MD, PRIYANKA MD Jan 08, 2025 14:26
--- NOTE | 2025-01-08 18:32 | PN ---
SUBJECTIVE: A 54-year-old gentleman who presents with coronary artery disease, underwent a CABG, had an intraaortic balloon pump. This was removed and thrombectomy was performed. The patient continues to make improvement overall. He has developed mottling of the toes on the left side. After declotting upon removal of the intraaortic balloon pump, his circulation has resumed and he has got good pulses and extremities viable with good color and neurosensory is intact. The toes had some cyanotic tips. He has been followed by Podiatry by Dr. Persaud, which has been continued with dressing changes. ASSESSMENT: * * Acute kidney injury. Without dialysis the BUN and creatinine are slightly improving. Lasix drip has now discontinued. We will continue with oral Lasix and fluids. * Coronary artery disease. Continue aspirin and beta-dante. * Atrial dysrhythmia. The patient is on amiodarone. He is in sinus rhythm. TID: [id number] RECEIPT: [id number]
--- NOTE | 2025-01-08 19:08 | PN ---
[facility] PROGRESS NOTE Date Patient Seen: Jan 08, 2025 Time of Visit: 10;00 Supervising Physician: John Jane MD Primary Care Physician: Joe Felton D.O. Outpatient Specialists: [ ] Inpatient Consults: CK Mcnair, Radha Swartz, Dr Guzman Attending: Festus Tovar MD PROBLEM LIST: CAD post CABG 12/28/2024 Acute left lower extremity ischemia Left LE Arterial occlusion S/P removal of IABP and thrombectomy LE 12/31/24 Acute on chronic combined heart failure with reduced EF of 25-30%, improving Cardiorenal syndrome Acute renal failure Non-STEMI POA Hypertension Anemia INTERVAL HISTORY: No major overnight event. Patient's hoarseness has decreased. Patient continues on pulmonary toileting. He has been afebrile with a T-max of 99.1 in the last 24 hours hemodynamically stable saturating 100% on 3 L via nasal cannula. He has been weaned off nitro drip and Lasix drip. Argatroban drip has been turned off and was started on heparin subQ b.i.d.. For DVT prophylaxis. Urine output 1.8 L in last 24 hours with a balance of-1 L Chest tube drained 80ml. He has been having regular bowel movements. CBC unremarkable similar to yesterday. Chemistry potassium was 3.1 corrected per protocol and now 3.5 BUN of 93 and creatinine 7. 5 slowly improving. Magnesium of 2.10. Albumin of 1.8. Chest x-ray with decreased pulmonary vascular congestion. Right upper extremity PICC line in good position. We will continue follow CV surgery and Cardiology recommendations. We will continue to follow podiatry is more left foot ischemic recommendations. Posterior tibialis pulse present on Doppler to left foot. REVIEW OF SYSTEMS: General: No malaise or fever. Neurological: No fainting episodes or seizures. HEENT: No nasal congestion or nasal secretion. Respiratory: No cough, shortness of breath, or wheezing Cardiac: No chest pain or palpitations. midsternal incision line tenderness Gastrointestinal: No vomiting or diarrhea. Genitourinary: No dysuria hematuria. Skin: No rashes or lesions. Hematological: No bruises or bleeding.+ lt foot pain Musculoskeletal: No joint pains or arthralgias. Psychiatric: No depression or panic attacks. PHYSICAL EXAM: GENERAL: Awake alert and oriented x2 HEENT: EOMI, Sclera non icteric, moist mucosa NECK: Supple, no JVD, trachea midline LUNGS: Chest tubes in place, HEART: Regular rate and rhythm. Normal S1 and S2, without murmurs ABD: Abdomen soft, nontender. Bowel sounds present EXT: No clubbing cyanosis or edema NEURO: GCS of 14 no focal weakness. Vital Signs (last 8hr) Date Time Temp Pulse Resp B/P (MAP) Pulse Ox O2 Delivery O2 Flow Rate FiO2 01/08/25 18:00 87 22 138/103 (115) 100 32 01/08/25 17:00 88 24 137/97 (110) 100 32 01/08/25 16:33 99.1 Nasal Cannula 3.0 01/08/25 16:15 100 Nasal Cannula* 3 32 01/08/25 16:00 89 27 130/102 (111) 99 32 01/08/25 15:00 90 24 148/116 (127) 100 32 01/08/25 14:00 84 30 125/79 (94) 100 32 01/08/25 13:40 85 27 N/A Room Air 21 01/08/25 13:00 85 27 116/82 (93) 93 32 01/08/25 13:00 100 Nasal Cannula* 3 32 01/08/25 12:30 92 30 134/87 (103) 97 01/08/25 12:00 98.6 Room Air 01/08/25 12:00 86 29 124/79 (94) 98 21 01/08/25 11:39 87 20 N/A Room Air 21 01/08/25 11:36 87 18 01/08/25 11:11 87 29 125/80 (95) 97 LABS: Hematology Labs: Test 01/08/25 04:18 01/07/25 03:32 Range/Units White Blood Count 8.7 4.8-10.8 K/uL Red Blood Count 3.81 L 4.50-6.20 MIL/uL Hemoglobin 10.1 L 14.0-18.0 g/dL Hematocrit 31.4 L 42-54 % Mean Corpuscular Volume 82.4 79-99 fL Mean Corpuscular Hemoglobin 26.5 L 27.0-33.0 pg Mean Corpuscular Hemoglobin Concent 32.2 32.0-36.0 g/dL Red Cell Distribution Width 26.7 H 11.0-15.5 % Platelet Count 281 # 130-400 K/uL Mean Platelet Volume 12.3 H 7.5-10.5 fL Nucleated Red Blood Cells 0.5 H 0.0-0.19 % Immature Granulocyte % (Auto) 1.4 H 0-1 % Neutrophils (%) (Auto) 69.7 40.0-77.0 % Lymphocytes (%) (Auto) 17.5 L 21.0-51.0 % Monocytes (%) (Auto) 7.8 3.0-13.0 % Eosinophils (%) (Auto) 3.3 0.0-8.0 % Basophils (%) (Auto) 0.3 0.0-5.0 % Neutrophils # (Auto) 6.4 1.8-7.7 K/uL Lymphocytes # (Auto) 1.6 1.0-4.8 K/uL Monocytes # (Auto) 0.7 0.1-1.0 K/uL Eosinophils # (Auto) 0.30 0.00-0.70 K/uL Basophils # (Auto) 0.03 0.00-0.20 K/uL Absolute Immature Granulocyte (auto 0.13 0-1 K/uL Chemistry Labs: Test 01/08/25 13:39 01/08/25 04:18 01/07/25 09:03 Range/Units Potassium Level 3.5 3.5-5.1 mmol/L Sodium Level 136 136-145 mmol/L Chloride Level 98 L 101-111 mmol/L Carbon Dioxide Level 25 21-32 mmol/L Blood Urea Nitrogen 93 *H 7-18 mg/dL Creatinine 7.5 H 0.5-1.3 mg/dL Glomerular Filtration Rate Calc 8 >90 mL/min Random Glucose 124 H 70-105 mg/dL Total Calcium 8.1 L 8.5-10.1 mg/dL Phosphorus Level 7.1 H 2.5-4.9 mg/dL Magnesium Level 2.10 1.80-2.40 mg/dL Total Bilirubin 0.7 0.2-1.0 mg/dL Aspartate Amino Transf (AST/SGOT) 53 H 10-37 U/L Alanine Aminotransferase (ALT/SGPT) 21 12-78 U/L Alkaline Phosphatase 106 50-136 U/L Total Protein 6.2 6.0-8.3 g/dL Albumin 1.8 L 3.5-5.0 g/dL Whole Blood Glucose 152 H 70-110 MG/DL Coagulation Labs: Test 01/07/25 08:09 Range/Units Activated Partial Thromboplast Time 55.3 H 26.3-35.5 SEC DIAGNOSTICS / RADIOLOGY RESULTS: [ ] PLAN Follow CT surgeon recommendations Follow cardiology recommendations Multimodal pain management Monitor chest tube output Chest x-ray in the morning Transfuse if absolutely necessary to keep hemoglobin above 8 Maintain O2 sats greater than 92% Incentive spirometry q.1 hour while awake Glycemic control with goal of 80-180 Aspiration precautions monitor electrolytes: K Goal of 4 Magnesium goal of 2 Replace accordingly Follow up Podiatry recommendations in regards to left foot wound care Follow cardiology recommendations. Avoid nephrotoxic medication and follow nephrology recs. NEURO: Minimize central acting medications as possible. Maintain fall precautions, adequate lighting during the day PULMONARY: Supplemental 02 as needed. Maintain aspiration precautions at all times CARDIOVASCULAR: Follow hemodynamics. Vital signs per facility protocol GI & NUTRITION: Continue with nutritional support. Continue stool softeners and laxatives as needed. KIDNEYS & ELECTROLYTES: Strict monitoring of intake, output and overall fluid balance. Avoid nephrotoxic medications to the extent possible. Medications to be dosed according to renal function. Monitor electrolytes and replace as needed ENDOCRINE: Maintain blood glucose between 100-180 at all times. Hypoglycemia protocol in place INFECTIOUS DISEASE: Trend temperature, WBC and procalcitonin level Follow cultures, deescalate antibiotics as soon as possible. Panculture if new onset fever ONCOLOGY/HEMATOLOGY/COAGULATION: Monitor for s/s of bleeding Monitor hemoglobin, coagulation studies as needed SKIN: Pressure ulcer prevention per facility protocol Specialty mattress ORTHO/REHAB: Continue PT/OT Prophylaxis: Continue GI and DVT prophylaxis Code Status: Full Resuscitation Disposition: TBD Other: Total patient care time exceeds 35 minutes excluding all procedures. ATTESTATION BY PHYSICIAN I have evaluated the patient chart, medical records, and spoke with appropriate staff. I reviewed the documentation, medical decision making, and treatment plan as noted by the mid-level provider above. I agree with the findings and plan of care. John Jane MD, [facility] Jan 08, 2025 19:08
[2025-01-09] VITALS (24 sets, daily range): BP systolic 113–151; BP diastolic 60–100; PULSE 75–97; RESP 15–34; TEMP 97.9–99.1; O2SAT 96–100
[2025-01-09 05:29] LABS: NUCLEATED RED BLOOD CELLS 0.4 % (0.0-0.19); PLATELET COUNT (AUTO) 370.0 K/uL (130-400); RED BLOOD CELL COUNT(AUTO) 4.45 MIL/uL (4.50-6.20); RED CELL DISTRIBUTION WIDTH 27.5 % (11.0-15.5); WHITE BLOOD COUNT (AUTO) 12.1 K/uL (4.8-10.8)
--- NOTE | 2025-01-09 05:42 | PN ---
SUBJECTIVE: A 54-year-old diabetic, [place] male. T-max 98.6, pulse 87, respirations 20. BUN and creatinine 93 and 7.5. Platelets 218, white count 8.7, H and H 10 and 31.4. The patient has been followed by Nephrology. The patient has been followed by Cardiology. The patient has been followed, coronary bypass grafting x 4, removal of intraaortic balloon pump and thrombectomy. The patient is receiving aspirin, atorvastatin, Plavix, amiodarone, and metoprolol. The patient has pulses that are strongly audible via Doppler on the left, strongly palpable on the right. OBJECTIVE: His examination today shows he has strongly palpable pedal pulses on the right. Pulses are strongly audible by Doppler on the left. He has ruborous and violaceous discoloration with resolving bulla to the dorsal and plantar aspect of his feet bilaterally, 11 cm bulla dorsally and a 13 cm area of bulla plantarly. Foot is cold to the touch, forefoot and midfoot. No evidence of any abscess or ascending cellulitis. Demarcating necrosis to the tips of digits 1 through 5. ASSESSMENT: A 54-year-old male receiving argatroban since 12/31, status post CABG, status post left lower extremity thrombectomy and removal of aortic balloon pump. The patient with acute renal failure, new onset atrial fibrillation, demarcating necrosis of the digits in the presence of Doppler pedal pulses on the left. Large bullous lesions that are hemorrhagic to the dorsal forefoot, dorsal midfoot and rearfoot both dorsally and plantarly. The patient is receiving IV Zosyn. PLAN: We will continue with IV Zosyn. The patient continues to be monitored for his acute renal failure by the Nephrology Service. They do not recommend renal replacement therapy at this time. We will monitor the demarcating bullous lesions to the dorsum of his feet and the plantar aspect of his feet and the demarcating necrosis to the tips of digits 1 through 5. The patient may ambulate with a CAM walking boot on the left with physical therapy support and a walker. Follow the patient closely while in-house. TID: [id number] RECEIPT: [id number]
[2025-01-09 05:44] LABS: ASPARTATE AMINOTRANSFERASE 56.0 U/L (10-37); CREATININE 7.4 mg/dL (0.5-1.3); GLOMERULAR FILTR. RATE CALC 8.0 mL/min (>90); GLUCOSE,RANDOM 102.0 mg/dL (70-105); PHOSPHORUS 7.3 mg/dL (2.5-4.9); SODIUM SERUM 137.0 mmol/L (136-145); TOTAL PROTEIN, SERUM 7.1 g/dL (6.0-8.3)
[2025-01-09 05:46] LABS: UREA NITROGEN, BLOOD 89.0 mg/dL (7-18)
--- NOTE | 2025-01-09 05:57 | PN ---
SUBJECTIVE: A 54-year-old who underwent CABG and insertion of aortic balloon pump. Coursing postoperative day #9. The patient underwent a thrombectomy on 12/31/2024 due to acute ischemia. His extremities are warm and well perfused. appeared dusky. PROBLEMS: * Ischemia of the toes. Dr. Persaud from podiatry was consulted and he is following the patient closely. Continue medical management with anticoagulation. We will continue to follow with close observation. * Acute kidney injury without dialysis. BUN and creatinine continued to rise, now it is in the 80s and the creatinine is up to 8. However, he continues to make urine. Dr. Pina from nephrology is seeing the patient and fluid overload or no electrolyte abnormalities, he would like to wait and hold on dialysis. * Vascular: The patient has been on Argatroban drip. We will discontinue this and start on Eliquis 5 mg once a day. * Dyslipidemia. Lipitor 40 mg once a day. PLAN: OT, PT and cardiac rehab. TID: [id number] RECEIPT: [id number]
--- NOTE | 2025-01-09 07:40 | HMCIMG ---
EXAM: CR Chest, 1 View. CLINICAL HISTORY: chest tube COMPARISON: CR Chest Dated 01/07 FINDINGS: LUNGS: The lungs show no infiltrate or other acute finding. PLEURAL SPACES: Trace left pleural effusion. No residual pneumothorax MEDIASTINUM: The cardiomediastinal silhouette is within normal limits. BONES: No aggressive appearing osseous lesion seen. Post sternotomy changes. MISCELLANEOUS: Right PICC line mid SVC IMPRESSION: 1. No acute pulmonary findings. 2. Trace left pleural effusion. 3. Right PICC line terminating in mid SVC. /[place]
--- NOTE | 2025-01-09 08:17 | PN ---
[facility] PROGRESS NOTE Date Patient Seen: Jan 09, 2025 Time of Visit: 08:15 Supervising Physician: Tigre Jaramillo MD Primary Care Physician: Joe Felton D.O. Outpatient Specialists: [ ] Inpatient Consults: CK Mcnair, Radha Swartz, Dr Guzman Attending: Festus Tovar MD PROBLEM LIST: CAD post CABG 12/28/2024 Acute left lower extremity ischemia Left LE Arterial occlusion S/P removal of IABP and thrombectomy LE 12/31/24 Acute on chronic combined heart failure with reduced EF of 25-30%, improving Cardiorenal syndrome Acute renal failure Non-STEMI POA Hypertension Anemia INTERVAL HISTORY: No major overnight event. This is off pressors no drips at this time. Pe.r CV surgery maintain in ICU overnight. Pt denies chest pain, patient's or shortness for breath. He does report voice hoarseness. Patient was started on Decadron 10 mg p.o. b.i.d. for hoarseness. Creatinine slowly improving. Having good urine output. Continue pulmonary toileting. Left ischemic foot wound care per Dr. Persaud Podiatry. Continue to follow CV surgery recommendations. REVIEW OF SYSTEMS: General: No malaise or fever. Neurological: No fainting episodes or seizures. HEENT: No nasal congestion or nasal secretion. Respiratory: No cough, shortness of breath, or wheezing Cardiac: No chest pain or palpitations. midsternal incision line tenderness Gastrointestinal: No vomiting or diarrhea. Genitourinary: No dysuria hematuria. Skin: No rashes or lesions. Hematological: No bruises or bleeding.+ lt foot pain Musculoskeletal: No joint pains or arthralgias. Psychiatric: No depression or panic attacks. PHYSICAL EXAM: GENERAL: Awake alert and oriented x2 HEENT: EOMI, Sclera non icteric, moist mucosa NECK: Supple, no JVD, trachea midline LUNGS: Chest tubes in place, HEART: Regular rate and rhythm. Normal S1 and S2, without murmurs ABD: Abdomen soft, nontender. Bowel sounds present EXT: No clubbing cyanosis or edema NEURO: GCS of 14 no focal weakness. Vital Signs (last 8hr) Date Time Temp Pulse Resp B/P (MAP) Pulse Ox O2 Delivery O2 Flow Rate FiO2 01/09/25 07:26 97 20 01/09/25 07:25 97 20 N/A Room Air 01/09/25 06:00 89 30 140/96 98 Room Air 01/09/25 05:00 91 28 134/100 98 Room Air 01/09/25 04:00 98.2 88 27 151/92 100 Room Air 01/09/25 04:00 100 Room Air* 0 01/09/25 03:00 88 21 151/97 98 Room Air 01/09/25 02:00 90 21 144/99 99 Room Air 01/09/25 01:00 86 34 146/97 99 Room Air LABS: Hematology Labs: Test 01/09/25 05:04 Range/Units White Blood Count 12.1 H 4.8-10.8 K/uL Red Blood Count 4.45 L 4.50-6.20 MIL/uL Hemoglobin 11.7 L 14.0-18.0 g/dL Hematocrit 36.9 L 42-54 % Mean Corpuscular Volume 82.9 79-99 fL Mean Corpuscular Hemoglobin 26.3 L 27.0-33.0 pg Mean Corpuscular Hemoglobin Concent 31.7 L 32.0-36.0 g/dL Red Cell Distribution Width 27.5 H 11.0-15.5 % Platelet Count 370 # 130-400 K/uL Mean Platelet Volume 10.9 H 7.5-10.5 fL Nucleated Red Blood Cells 0.4 H 0.0-0.19 % Chemistry Labs: Test 01/09/25 05:04 01/07/25 09:03 Range/Units Sodium Level 137 136-145 mmol/L Potassium Level 3.7 3.5-5.1 mmol/L Chloride Level 98 L 101-111 mmol/L Carbon Dioxide Level 25 21-32 mmol/L Blood Urea Nitrogen 89 *H 7-18 mg/dL Creatinine 7.4 H 0.5-1.3 mg/dL Glomerular Filtration Rate Calc 8 >90 mL/min Random Glucose 102 70-105 mg/dL Total Calcium 8.6 8.5-10.1 mg/dL Phosphorus Level 7.3 H 2.5-4.9 mg/dL Magnesium Level 2.30 1.80-2.40 mg/dL Total Bilirubin 0.6 0.2-1.0 mg/dL Aspartate Amino Transf (AST/SGOT) 56 H 10-37 U/L Alanine Aminotransferase (ALT/SGPT) 25 12-78 U/L Alkaline Phosphatase 121 50-136 U/L Total Protein 7.1 6.0-8.3 g/dL Albumin 1.9 L 3.5-5.0 g/dL Whole Blood Glucose 152 H 70-110 MG/DL DIAGNOSTICS / RADIOLOGY RESULTS: [ ] PLAN Continue PT continue IS Continue follow Cardiothoracic Surgeons postop protocol Neurovascular checks to lower extremities Monitor for bleeding Electrolyte protocol Daily labs and chest x-rays in a.m. PT/OT when able Follow cardiology recs Follow nephrology recs Follow GI recs Follow up Podiatry recommendations pulmonary toileting NEURO: Minimize central acting medications as possible. Fall Precautions. Well lighted room through the day and minimize interruptions through the night to prevent acute delirium. PULMONARY: Supplemental 02 as needed Titrate Fio2 to keep Spo2 > or = 90% DuoNebs and CPT as needed IS hourly while awake for pulmonary hygiene Out of bed to chair as tolerated CARDIOVASCULAR: Follow hemodynamics. Titrate vasopressor to keep MAP >65 or systolic blood pressure >95mmHg DRIPS: Lasix Dobutamine LINES: RT IJ CVC GI & NUTRITION: Continue nutritional support Aspirations precautions Prokinetic agents and laxatives as needed KIDNEYS & ELECTROLYTES: Strict monitoring of intake and output Daily weights Avoid nephrotoxic agents Monitor electrolytes and replace as needed Goal urine output of 30mL/hr or 0.5mL/kg/hr ENDOCRINE: Maintain blood glucose between 100-180 at all times. Insulin sliding scale for blood glucose management INFECTIOUS DISEASE: Trend temperature. Quiñones-culture if febrile. Micro: [ ] Antibiotics: Zosyn HEMATOLOGY & COAGULATION: Monitor H&H. Keep Hgb > 7 Transfuse 1 unit of PRBC for Hgb < 7 Transfuse 1 pack of platelets of platelets < 20, 000 Watch for any signs and symptoms of bleeding SKIN: Pressure ulcer prevention per facility protocol Rehab: PT/OT Prophylaxis: GI: Pepcid DVT: per CV surgery Code Status: Full Resuscitation Disposition: ICU Other: Total patient Critical Care time 35 minutes, time excluded any procedures. Case was discussed and seen with my supervising physician. The above plan was formulated and agreed upon. ATTESTATION BY PHYSICIAN I attest that I reviewed and discussed the case with the Physician Director Of Sports Medicine as well as agree with the Physician Director Of Sports Medicine's findings, plans of care, and documentation above. Tigre Goodwin MD, [facility] Jan 09, 2025 08:17
--- NOTE | 2025-01-09 09:31 | PN ---
NEPHROLOGY PROGRESS NOTE Date/Time Patient Seen: Jan 09, 2025 SUBJECTIVE: The patient is doing poorly. This patient has renal failure, which is worsening. The patient has coronary artery disease and CABG. The patient also has atrial fibrillation episode. He has been transitioned to Lasix 40 mg IV b.i.d. as per surgical team Renal function continues to improve Electrolytes are stable. Urine output was noted He was seen in the ICU , in no acute distress No family at the bedside Condition is critical and guarded REVIEW OF SYSTEMS: GENERAL: Negative for any nausea, vomiting, fevers, chills, or weight loss. NEUROLOGIC: Negative for any blurry vision, blind spots, double vision, facial asymmetry, dysphagia, dysarthria, hemiparesis, hemisensory deficits, vertigo, ataxia. HEENT: Negative for any head trauma, neck trauma, neck stiffness, photophobia, phonophobia, sinusitis, rhinitis. CARDIAC: Negative for any chest pain, dyspnea on exertion, paroxysmal nocturnal dyspnea, peripheral edema. PULMONARY: Negative for any shortness of breath, wheezing, COPD, or TB exposure. GASTROINTESTINAL: Negative for any abdominal pain, nausea, vomiting, bright red blood per rectum, melena. GENITOURINARY: Negative for any dysuria, hematuria, incontinence. INTEGUMENTARY: Negative for any rashes, cuts, insect bites. RHEUMATOLOGIC: Negative for any joint pains, photosensitive rashes, history of vasculitis or kidney problems. HEMATOLOGIC: Negative for any abnormal bruising, frequent infections or bleeding. Vital Signs (last 8hr) Date Time Temp Pulse Resp B/P (MAP) Pulse Ox O2 Delivery O2 Flow Rate FiO2 01/09/25 09:00 93 17 148/99 99 Room Air 01/09/25 08:00 99.1 97 22 146/96 98 Room Air 21 01/09/25 07:26 97 20 01/09/25 07:25 97 20 N/A Room Air 01/09/25 06:00 89 30 140/96 98 Room Air 01/09/25 05:00 91 28 134/100 98 Room Air 01/09/25 04:00 98.2 88 27 151/92 100 Room Air 01/09/25 04:00 100 Room Air* 0 21 01/09/25 03:00 88 21 151/97 98 Room Air 01/09/25 02:00 90 21 144/99 99 Room Air PHYSICAL EXAM: GENERAL: Alert and oriented x 3. No acute distress. Well-nourished. EYES: EOMI. Anicteric. HENT: Moist mucous membranes. No scleral icterus. No cervical lymphadenopathy. LUNGS: Clear to auscultation bilaterally. No accessory muscle use. CARDIOVASCULAR: Regular rate and rhythm. No murmur. No JVD. ABDOMEN: Soft, non-tender and non-distended. No palpable masses. EXTREMITIES: No edema. Non-tender. SKIN: No rashes or lesions. Warm. NEUROLOGIC: No focal neurological deficits. CN II-XII grossly intact, but not individually tested. PSYCHIATRIC: Cooperative. Appropriate mood and affect. Current Medications Medications (Trade) Dose Ordered Sig/Mila Route PRN Reason Start Time Stop Time Status Last Admin Dose Admin Acetaminophen (TYLenol 325MG TAB) 650 mg Q4H PRN PO Temp >38.3C(AFTER EXTUBATION) 12/28/24 14:00 01/27/25 13:59 Acetaminophen (TYLenol 325MG TAB) 650 mg Q6H PRN PO MILD PAIN (1-3) 12/24/24 01:30 12/28/24 13:57 DC 12/27/24 23:45 650 MG Acetaminophen (TYLenol 325MG TAB) 650 mg Q6H PRN PO TEMPERATURE GREATER THAN 101.5 12/24/24 03:00 12/28/24 14:10 DC Acetaminophen (TYLenol 325MG TAB) 650 mg Q6H PRN PO MILD PAIN (1-3) 12/28/24 14:00 01/27/25 13:59 01/05/25 20:03 650 MG Acetaminophen (TYLenol 650MG SUPPOSITORY) 650 mg Q4H PRN RC Temp >38.3C WHILE INTUBATED 12/28/24 14:00 01/27/25 13:59 Acetaminophen (acetaMINOPHEN) 1,000 mg Q6H6 IV 12/28/24 18:00 12/29/24 17:59 DC 12/29/24 17:27 1,000 MG Acetaminophen (acetaMINOPHEN) 1,000 mg Q6H6 IVPB 12/30/24 00:00 12/31/24 20:14 DC 12/30/24 18:16 1,000 MG Albumin Human 250 ml @ 0 mls/hr AD PRN IV IF HEMODYNAMICALLY UNSTABLE 12/28/24 14:00 12/29/24 09:28 DC 12/29/24 09:28 250 MLS/HR Albuterol (DUOneb) 1 UDVIAL [id number] IH 01/01/25 18:00 01/01/25 15:25 DC Albuterol Sulfate (Proventil 0.083% 2.5mg/3ml) 2.5 mg ONCE STAT IH 12/30/24 10:22 12/30/24 10:32 DC 12/30/24 10:43 2.5 MG Aminocaproic Acid 62486 mg/Sodium Chloride 310 ml @ 25 mls/hr AD IV 12/28/24 14:00 12/28/24 14:14 DC Aminocaproic Acid 93814 mg/Sodium Chloride 480 ml @ 0 mls/hr AD PRN IV BLEEDING CONTROL 12/27/24 11:00 01/26/25 10:59 Amiodarone HCl (pacERONE 200MG) 200 mg DAILY PO 01/05/25 09:00 02/04/25 08:59 01/06/25 10:47 200 MG Amiodarone HCl 150 mg/Dextrose 103 ml @ 618 mls/hr ONCE IV 01/04/25 06:30 01/04/25 06:21 DC Amiodarone HCl 360 mg/Dextrose 207.2 ml @ 33.3 mls/hr AD IV 01/04/25 06:30 01/04/25 06:21 DC Amiodarone HCl 540 mg/Dextrose 310.8 ml @ 16.7 mls/hr [id number] IV 01/04/25 06:30 02/03/25 06:29 01/04/25 13:01 16.7 MLS/HR Argatroban 250 mg/ Sodium Chloride 250 ml @ 0 mls/hr PROTOCOL IV 12/31/24 16:30 01/30/25 16:29 12/31/24 22:32 2.61 MLS/HR Aspirin (Aspirin 81mg Ec Tab) 81 mg DAILY PO 12/24/24 09:00 01/23/25 08:59 01/06/25 09:27 81 MG Atorvastatin Calcium (LIPItor 40MG) 40 mg HS PO 12/24/24 21:00 01/01/25 11:16 DC 12/31/24 20:44 40 MG Benzocaine (Cepacol Sore Throat Lozenge) 1 each Q4H PRN MM SORE THROAT 01/03/25 13:30 02/02/25 13:29 01/06/25 11:16 1 EACH Bisacodyl (DulcoLAX) 10 mg DAILY PRN RC CONSTIPATION - MOM INEFFECTIVE 12/29/24 14:00 01/28/25 13:59 12/30/24 11:05 10 MG Calcium Gluconate 1 gm/Sodium Chloride 60 ml @ 200 mls/hr AD PRN IV HYPOCALCEMIA 12/28/24 14:00 01/27/25 13:59 01/01/25 01:52 200 MLS/HR Cefazolin Sodium (ANCEF 1 gm vial) 2 gm ONCALL IVP 12/26/24 16:30 12/26/24 16:28 DC Cefazolin Sodium (Ancef) 2 gm ONCALL PRN IVP SURGERY 12/26/24 16:30 12/28/24 13:57 DC Cefazolin Sodium (Ancef) 2 gm Q8H IVPB 12/28/24 19:00 12/29/24 11:01 DC 12/29/24 11:04 2 GM Dexmedetomidine/ Sodium Chloride (PRECEdex 400MCG/ 100ML-NS) 400 mcg PROTOCOL IV 12/28/24 14:00 12/29/24 13:59 DC 12/29/24 12:16 400 MCG Dexmedetomidine/ Sodium Chloride (PRECEdex 400MCG/ 100ML-NS) 400 mcg PROTOCOL IV 12/29/24 18:00 01/28/25 17:59 12/31/24 06:05 400 MCG Dextrose (D50w) 50 ml AD PRN IV HYPOGLYCEMIA PROTOCOL 12/28/24 14:00 01/27/25 13:59 Dextrose (D50w) 50 ml ONCE STAT IV 12/30/24 11:36 12/30/24 11:39 DC 12/30/24 11:45 50 ML Dextrose/Sodium Chloride 1,000 ml @ 50 mls/hr Q20H IV 12/30/24 11:30 01/01/25 16:17 DC 01/01/25 02:09 50 MLS/HR Dobutamine HCl/ Dextrose 250 ml @ 0 mls/hr PROTOCOL IV 12/29/24 14:00 01/28/25 13:59 01/05/25 08:48 4.1 MLS/HR Docusate Sodium (COLace 100MG CAP) 100 mg BID PO 12/28/24 21:00 12/29/24 08:01 DC 12/28/24 20:53 100 MG Docusate Sodium (COLace LIQUID 100MG/10ML) 100 mg BID PO 12/29/24 08:00 01/28/25 07:59 01/06/25 09:27 100 MG Enoxaparin Sodium (Lovenox) 30 mg DAILY SQ 12/31/24 09:00 12/31/24 16:12 DC Epinephrine HCl 10 mg/Sodium Chloride 250 ml @ 0 mls/hr AD PRN IV TITRATE 12/27/24 11:00 01/26/25 10:59 12/30/24 04:29 0 MLS/HR Epinephrine HCl 10 mg/Sodium Chloride 250 ml @ 0 mls/hr AD PRN IV POST-OP CARDIOVASCULAR ORDERS 12/28/24 14:00 12/28/24 14:14 DC Famotidine (Pepcid 20mg Vial) 20 mg BID IV 12/28/24 21:00 12/31/24 20:20 DC 12/31/24 08:51 20 MG Famotidine (Pepcid 20mg Vial) 20 mg Q48H IV 01/02/25 09:00 01/02/25 04:51 DC Famotidine (Pepcid 20mg Tab) 20 mg DAILY PO 12/24/24 09:00 12/28/24 13:54 DC 12/26/24 10:19 20 MG Furosemide (LASix 20MG TAB) 20 mg Q12H PO 12/30/24 09:00 12/30/24 08:34 DC Furosemide (LASix 20MG VIAL) 20 mg Q12H IV 12/29/24 09:00 12/30/24 08:34 DC 12/29/24 09:20 20 MG Furosemide 100 mg/ Sodium Chloride 100 ml @ 0 mls/hr PROTOCOL IV 12/29/24 14:30 01/28/25 14:29 01/03/25 16:54 2.5 MLS/HR Glucagon (Glucagon 1mg Kit) 1 mg AD PRN IM HYPOGLYCEMIA PROTOCOL 12/28/24 14:00 01/27/25 13:59 Guaifenesin/ Dextromethorphan (RobiTUSSin DM 200/20MG 10ML) 10 ml Q4H PRN PO COUGH 01/03/25 16:30 02/02/25 16:29 01/04/25 15:44 10 ML Heparin Sodium (Porcine) (HEParin 5,000 UNIT VIAL) *calculation based on ACTUAL B... AD PRN IV HEPARIN PROTOCOL 12/24/24 02:30 12/28/24 13:54 DC 12/24/24 17:32 5,000 UNIT Heparin Sodium/ Dextrose 250 ml @ 0 mls/hr Q6H IV 12/24/24 02:30 12/28/24 13:54 DC 12/27/24 17:04 11.3 MLS/HR Hydralazine HCl (APRESOLine 20MG INJ) 10 mg Q6H PRN IV For:SBP above 160;DBP above 90 12/24/24 03:00 12/28/24 13:54 DC Insulin Human Regular (humuLIN R 100 UNIT/ML 3ML) 10 unit ONCE STAT IV 12/30/24 11:42 12/30/24 11:45 DC 12/30/24 12:01 10 UNIT Insulin Human Regular (humuLIN R 100 UNIT/ML 3ML) 10 unit ONCE STAT SQ 12/30/24 11:36 12/30/24 11:43 DC Insulin Human Regular 100 unit/ Sodium Chloride 100 ml @ 0 mls/hr AD IV 12/28/24 14:00 12/29/24 17:55 DC 12/28/24 17:09 5 MLS/HR Ipratropium Charlotte (AtrovENT UD) 0.5 mg [id number] IH 12/30/24 12:00 01/29/25 11:59 01/06/25 12:01 0.5 MG Lactulose (Constulose 20gm/ 30ml Udcup) 20 gm BID PRN PO CONSTIPATION 12/24/24 03:00 12/28/24 13:54 DC 12/26/24 21:30 20 GM Lactulose (Constulose 20gm/ 30ml Udcup) 20 gm BID PRN PO CONSTIPATION 12/28/24 14:00 01/27/25 13:59 12/30/24 07:50 20 GM Lidocaine HCl/ Dextrose 250 ml @ 0 mls/hr AD PRN IV TITRATE 12/28/24 22:30 12/29/24 16:00 DC 12/29/24 06:53 15 MLS/HR Magnesium Hydroxide (Milk Of Magnesium 30ml) 30 ml DAILY PRN PO CONSTIPATION 12/28/24 14:00 01/27/25 13:59 12/30/24 10:18 30 ML Magnesium Sulfate 50 ml @ 12.5 mls/hr AD PRN IV MAG LEVEL LESS THAN 2.0 12/28/24 14:00 01/27/25 13:59 12/28/24 18:42 12.5 MLS/HR Magnesium Sulfate 50 ml @ 0 mls/hr PROTOCOL PRN IV MAGNESIUM PROTOCOL 12/26/24 15:00 12/28/24 14:10 DC Metolazone (zarOXOlyn) 5 mg ONCE PO 12/31/24 12:00 12/31/24 20:18 DC 12/31/24 12:01 5 MG Metolazone (zarOXOlyn) 5 mg ONCE PO 01/01/25 16:30 01/02/25 16:29 DC 01/01/25 16:53 5 MG Metoprolol Tartrate (loprESSOR) 12.5 mg BID PO 12/30/24 09:00 01/04/25 08:51 DC 01/03/25 20:09 12.5 MG Metoprolol Tartrate (loprESSOR) 25 mg BID PO 12/25/24 21:00 12/28/24 13:54 DC 12/28/24 09:28 25 MG Metoprolol Tartrate (loprESSOR) 25 mg TID PO 01/04/25 09:00 01/06/25 13:08 DC 01/06/25 09:27 25 MG Metoprolol Tartrate (loprESSOR) 50 mg BID PO 01/06/25 21:00 02/05/25 20:59 Morphine Sulfate (morPHINE 2MG SYG) 0.5 mg Q2H PRN IV MODERATE PAIN (4-6) 12/28/24 14:00 12/29/24 13:59 DC Morphine Sulfate (morPHINE 2MG SYG) 1 mg Q2H PRN IV SEVERE PAIN (7-10) 12/28/24 14:00 12/29/24 13:59 DC 12/28/24 17:05 1 MG Morphine Sulfate (morPHINE 2MG SYG) 2 mg Q4H PRN IVP SEVERE PAIN (7-10) 12/24/24 03:00 12/28/24 13:54 DC 12/26/24 02:43 2 MG Nitroglycerin (Nitroglycerin 1gm Oint) 0.5 inch Q8H5 TD 12/24/24 01:30 12/28/24 13:54 DC 12/27/24 12:57 0.5 INCH Nitroglycerin (Nitroglycerin 1gm Oint) 1 inch Q8H TD 01/04/25 15:00 02/03/25 14:59 01/06/25 15:40 1 INCH Nitroglycerin/ Dextrose 0 ml @ 0 mls/hr AD IV 12/28/24 14:00 12/31/24 14:00 DC Nitroglycerin/ Dextrose 0 ml @ 0 mls/hr AD PRN IV TITRATE 01/01/25 06:30 01/31/25 06:29 01/05/25 20:54 12 MLS/HR Norepinephrine Bitartrate 250 ml @ 0 mls/hr AD PRN IV TITRATE 12/27/24 11:00 01/26/25 10:59 01/04/25 06:14 0 MLS/HR Norepinephrine Bitartrate 8 mg/ Dextrose 250 ml @ 0 mls/hr AD PRN IV POST-OP CARDIOVASCULAR ORDERS 12/28/24 14:00 12/28/24 14:14 DC Ondansetron HCl (zoFRAN 4MG INJ) 4 mg Q6H PRN IV NAUSEA/VOMITING 12/24/24 03:00 12/28/24 13:54 DC Ondansetron HCl (zoFRAN 4MG INJ) 4 mg Q6H PRN IV NAUSEA/VOMITING 12/28/24 14:00 01/27/25 13:59 12/30/24 11:01 4 MG Pantoprazole Sodium (PROTonix 40MG INJ) 40 mg BID IVP 01/05/25 09:00 02/04/25 08:59 01/06/25 09:27 40 MG Pantoprazole Sodium (PROTonix 40MG INJ) 40 mg Q12H IVP 01/02/25 05:00 01/05/25 04:04 DC 01/04/25 16:00 40 MG Phenol (Sore Throat Dawson) 1 SPRAY Q4H PRN PO SORE THROAT 01/06/25 10:30 02/05/25 10:29 01/06/25 16:37 1 SPRY Piperacillin Sod/ Tazobactam Sod (Zosyn 3.375gm+NS 50ml) 3.375 gm Q12H IV 12/30/24 15:30 01/05/25 04:05 DC 01/04/25 14:38 3.375 GM Piperacillin Sod/ Tazobactam Sod (Zosyn 3.375gm+NS 50ml) 3.375 gm Q12H IV 01/05/25 09:00 01/09/25 08:59 01/06/25 09:27 3.375 GM Potassium Phosphate 250 ml @ 42 mls/hr AD PRN IV LOW PHOS LEVEL 12/28/24 14:00 01/27/25 13:59 12/29/24 06:12 42 MLS/HR Potassium Chloride 100 ml @ 100 mls/hr AD PRN IV POTASSIUM PROTOCOL 12/26/24 15:00 12/28/24 13:54 DC Potassium Chloride 100 ml @ 100 mls/hr AD PRN IV HYPOKALEMIA 12/28/24 14:00 01/27/25 13:59 01/05/25 16:19 100 MLS/HR Potassium Chloride (K-Dur/Klor-Con 20meq) 20 meq AD PRN PO POTASSIUM PROTOCOL 12/26/24 15:00 12/28/24 13:54 DC 12/26/24 18:27 20 MEQ Potassium Chloride (KCl 10% Elixir 20meq/15ml) 20 meq AD PRN PO POTASSIUM PROTOCOL 12/26/24 15:00 12/28/24 13:54 DC Propofol 100 ml @ 0 mls/hr AD PRN IV SEDATION 12/28/24 14:00 01/01/25 13:59 DC Sodium Polystyrene Sulfonate (kayEXALate 15 GM/60 ML) 30 gm ONCE STAT PO 12/30/24 11:36 12/30/24 11:39 DC 12/30/24 11:45 30 GM Sodium Bicarbonate (Sodium Bicarb 50meq 50ml Vial) 50 meq AD PRN IV OTHER[SEE DOSING INSTRUCTIONS] 12/28/24 14:00 12/31/24 14:00 DC 12/30/24 12:45 100 MEQ Sodium Chloride 500 ml @ 0 mls/hr AD IV 12/28/24 14:00 9/19/25 13:59 Sodium Chloride 1,000 ml @ 10 mls/hr ONCE IV 12/28/24 14:00 12/29/24 13:59 DC 12/28/24 17:06 10 MLS/HR Sodium Chloride (NS Flush 10ml) 10 ml Q8H PRN IVP IV LINE FLUSH 12/28/24 14:00 01/27/25 13:59 Sodium Chloride (Sodium Chloride 3% Inh) 4 ML [id number] IH 01/04/25 12:00 02/03/25 11:59 01/06/25 12:01 4 ML Tramadol HCl (UltRAM) 25 mg Q6H PRN PO MODERATE PAIN (4-6) 12/28/24 14:00 12/29/24 13:56 DC 12/29/24 11:05 25 MG Tramadol HCl (UltRAM) 50 mg Q6H PRN PO SEVERE PAIN (7-10) 12/28/24 14:00 12/29/24 13:56 DC Vasopressin 20 units/Sodium Chloride 100 ml @ 0 mls/hr PROTOCOL IV 12/30/24 15:30 01/29/25 15:29 12/31/24 10:40 6 MLS/HR LABORATORY: [ ] Hematology Labs: Test 01/09/25 05:04 Range/Units White Blood Count 12.1 H 4.8-10.8 K/uL Red Blood Count 4.45 L 4.50-6.20 MIL/uL Hemoglobin 11.7 L 14.0-18.0 g/dL Hematocrit 36.9 L 42-54 % Mean Corpuscular Volume 82.9 79-99 fL Mean Corpuscular Hemoglobin 26.3 L 27.0-33.0 pg Mean Corpuscular Hemoglobin Concent 31.7 L 32.0-36.0 g/dL Red Cell Distribution Width 27.5 H 11.0-15.5 % Platelet Count 370 # 130-400 K/uL Mean Platelet Volume 10.9 H 7.5-10.5 fL Nucleated Red Blood Cells 0.4 H 0.0-0.19 % Chemistry Labs: Test 01/09/25 05:04 Range/Units Sodium Level 137 136-145 mmol/L Potassium Level 3.7 3.5-5.1 mmol/L Chloride Level 98 L 101-111 mmol/L Carbon Dioxide Level 25 21-32 mmol/L Blood Urea Nitrogen 89 *H 7-18 mg/dL Creatinine 7.4 H 0.5-1.3 mg/dL Glomerular Filtration Rate Calc 8 >90 mL/min Random Glucose 102 70-105 mg/dL Total Calcium 8.6 8.5-10.1 mg/dL Phosphorus Level 7.3 H 2.5-4.9 mg/dL Magnesium Level 2.30 1.80-2.40 mg/dL Total Bilirubin 0.6 0.2-1.0 mg/dL Aspartate Amino Transf (AST/SGOT) 56 H 10-37 U/L Alanine Aminotransferase (ALT/SGPT) 25 12-78 U/L Alkaline Phosphatase 121 50-136 U/L Total Protein 7.1 6.0-8.3 g/dL Albumin 1.9 L 3.5-5.0 g/dL Procalcitonin 1.13 H 0.05-0.5 ng/mL DIAGNOSTICS / RADIOLOGY: [address] [address] IMAGING REPORT Signed PATIENT: ZHEN IVEY MR#: [id number] : 1970 SEX: M AGE: 54 LOCATION: [facility] ORDER 2300 STATUS: ADM IN REPORT#: [id number] SERVICE 0600 REASON: chest tube ORDERING PHYSICIAN: BORIS LOW PROCEDURE: CXR1VW - CHEST 1VW CHEST 1VW REASON: chest tube COMPARISON: Prior chest radiograph from 01/05/2025 is available. FINDINGS: Single view of the chest was obtained. Lungs are clear. Heart size is normal with median sternotomy. There is a right-sided PICC catheter in place. There is a left-sided chest tube in place.. There is no pulmonary vascular congestion. Mediastinum and bony thorax appear unremarkable. IMPRESSION: 1. Status post median sternotomy with cardiac revascularization procedure 2. Support lines are in satisfactory position. 3. No evidence of airspace consolidation or pulmonary venous congestion. DICTATED BY: FRED NUNES MD DATE: 01/07/25 1032 ELECTRONICALLY SIGNED BY: FRED NUNES MD DATE: 01/07/25 1035 PATIENT: ZHEN IVEY MR#: [id number] : 1970 SEX: M AGE: 54 LOCATION: [facility] ORDER 0808 STATUS: ADM IN REPORT#: [id number] SERVICE 0807 REASON: ischemic digits ORDERING PHYSICIAN: MACEY GALO DO PROCEDURE: ART U LE - US ARTERIAL UNILA LOW EXT DUPL EXAMINATION: DUPLEX ULTRASOUND EXAMINATION OF THE LEFT LOWER EXTREMITY ARTERIES. CLINICAL HISTORY: Pain. COMPARISON: Bilateral lower extremity arterial doppler dated 12/31/2024. FINDINGS: Peak systolic velocities within the left lower arteries are as follows: Common femoral artery: 217 cm/s. Superficial femoral artery: 45 cm/s at proximal, 47 cm/s at mid, and 45 cm/s at distal segments. Popliteal artery: 49 cm/s at proximal and 41 cm/s at distal segments. Posterior tibial artery: 38 cm/s. Anterior tibial artery: 28 cm/s. Dorsalis pedis artery: 55 cm/s. The left lower limb arteries demonstrate triphasic to biphasic waveforms in all arteries. There is intimal wall thickening and multilevel atherosclerosis in the left lower limb arteries. There is a hematoma that measures 2.6 x 2.7 cm adjacent to the left common femoral artery. IMPRESSION: Elevated velocity left inflow with drop in flow velocities suggesting mild to moderate inflow stenosis. Subcutaneous hematoma adjacent to the left common femoral artery. /[place] DICTATED BY: MATT DE LOS SANTOS MD DATE: 01/06/2558 ELECTRONICALLY SIGNED BY: MATT DE LOS SANTOS MD DATE: 01/06/2558 PATIENT: ZHEN IVEY MR#: [id number] : 1970 SEX: M AGE: 54 LOCATION: [facility] ORDER 1116 STATUS: ADM IN REPORT#: [id number] SERVICE 1114 REASON: post op hypotension/reassess LVEF ORDERING PHYSICIAN: TERRANCE ALVAREZ PROCEDURE: ECHO CMP - ECHO 2-D COMPLETE APPROVED REPORT EXAM: Two-dimensional and M-mode echocardiogram with Doppler and color Doppler. Study Details: CP , HTN INDICATION ICD: post op hypotension / reassess 2D Dimensions RVDd 4.5 cm LVEF(%) 34.1 (>50%) LVED Vol(simp.) 97.7 mL IVSd 0.9 (0.7-1.1cm) FS(%) 16 % LVES Vol(simp.) 76.8 mL LVDd 4.2 (3.8-5.6cm) LA (2D) 2.7 (1.6-4.0cm) LVEF(%, simp.) 21 % PWd 0.8 (0.7-1.1cm) Ao Root(2D) 2.8 (2.0-3.7cm) LA ESV INDEX (BP) 21.01 mL/m2 IVSs 1.1 cm LVOT diam 1.9 (1.8-2.4cm) LVDs 3.5 (2.5-4.0cm) PWs 1.1 cm Deformation Strain Apical 4 4.3 % Apical 2 1.6 % Apical 3 2.4 % Global Strain 2.4 % M-Mode Dimensions EPSS 1.2 cm LA (MM) 3.6 (1.6-4.0cm) Ao Root(MM) 3.2 (2.0-3.7cm) Aortic Valve AoV Vmax 1.0 m/s Ao Peak GR 4.1 mmHg LVOT Vmax 0.6 m/s AoV VTI 0.2 m Ao Mean GR 2.5 mmHg LVOT VTI 0.10 m MARGARITA (VMAX) 1.62 cm2 MARGARITA (VTI) 1.7 cm2 Mitral Valve MV E Vmax 54.6 cm/s DECEL Time 169 ms MV A Vmax 54.6 cm/s P 1/2 T 49 ms E/A ratio 1.0 MVA (PHT) 4.5 cm2 TDI E/E' Medial 13.7 E/E' Lateral 18.7 Medial E' Peak V 3.99 cm/s Lateral E' Peak V 2.92 cm/s Pulmonary Valve PV Vmax 0.5 m/s PV VTI 0.08 m PV Mean GR 0.7 mmHg PV Peak GR 1.0 mmHg Tricuspid Valve TR Vmax 2.5 m/s RVSP 25.3 mmHg TR Peak GR 25.3 mmHg Left Ventricle The left ventricle is mildly dilated. Hyopkinetic anterior wall and apex. Global strain of -25. There is moderate concentric left ventricular hypertrophy.. LVEF is 25-30%. 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 Indeterminate diastolic dysfunction. Right Ventricle The right ventricle is mildly dilated. Right ventricular systolic function is moderately to severely reduced. Atria The left atrium size is normal. The right atrium size is normal. Aortic Valve The aortic valve is not well visualized. No aortic regurgitation is present. There is mild valvular aortic stenosis. Mitral Valve The mitral valve is mildly thickened. There is no mitral valve regurgitation noted. There is no mitral valve stenosis. Tricuspid Valve Tricuspid valve is not well visualized. trace tricuspid regurgitation. Pulmonic Valve The pulmonary valve is normal in structure and function. There is no pulmonic valvular regurgitation. Great Vessels The aortic root is normal in size. IVC is not well visualized. Pericardium not well visualized Conclusion The left ventricle is mildly dilated. LVEF is 25-30%. Hyopkinetic anterior wall and apex. Global strain of -25. 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 DICTATED BY: CHEYENNE LANE MD DATE: 01/01/25 1448 ELECTRONICALLY SIGNED BY: CHEYENNE LANE MD DATE: 01/02/25 0846 PATIENT: ZHEN IVEY MR#: [id number] : 1970 SEX: M AGE: 54 LOCATION: [facility] ORDER 1343 STATUS: ADM IN REPORT#: [id number] SERVICE 1342 REASON: abdominal pain ORDERING PHYSICIAN: CHEYENNE HENSON PROCEDURE: ABDOMEN - US ABDOMINAL COMPLETE US ABDOMINAL COMPLETE REASON: 54-year-old male with abdominal pain COMPARISON: None FINDINGS: The visualized portion of the chest demonstrate there is small right-sided pleural effusion. There is grade 1 hepatic steatosis the liver.. The left lobe of the liver is obscured by overlying bowel gas. There are no focal mass lesions. The liver is not enlarged.There is a normal-appearing gallbladder. The gallbladder wall thickness is 0.1 cm. The common bile duct is normal size measuring 0.4 cm. Kidneys appear normal in size and appearance. The right kidney measures 9.8 x 4.3 x 4.9 cm. The left kidney measures 9.8 x 4.7 x 5.1 cm.. There is no evidence of mass, stone or hydronephrosis. Spleen appears normal. The spleen length is 9.7 cm.. Aorta and inferior vena cava appear normal. The pancreas is obscured by overlying bowel gas. IMPRESSION: Small right-sided pleural effusion Otherwise a normal upper abdomen sonogram.. DICTATED BY: FRED NUNES MD DATE: 12/30/24 1518 ELECTRONICALLY SIGNED BY: FRED NUNES MD DATE: 12/30/24 1524 ASSESSMENT: Acute renal failure Multiple electrolyte problems. CABG. Underlying anemia. Multiple other comorbidities including coronary artery disease, CABG, previous [place], hypertension, anemia PLAN: Labs, diagnostic, radiologic exams reviewed and interpreted by myself and supervising physician. We have reviewed external records in detail There is no need for emergent renal replacement therapy. Continue with diuretics as per surgical team Require close monitoring of renal function and electrolytes Order CBC, CMP, and electrolytes in am Continue with antibiotics BiPAP as necessary, for respiratory distress IV pressors as needed Monitor blood pressure adjust medication doses as needed Avoid hypotensive episodes May use Dilaudid 0.5 mg IV every 6 hours as needed for severe pain Monitor blood sugars Strict intake, output, and daily weight should be monitored Please renally adjust medications Avoid nephrotoxic and nonsteroidal drugs Avoid contrast if possible Will continue to monitor renal function, anemia, electrolytes Treatment plan discussed with patient Questions were answered We have discussed with the other team physicians in detail about the care plan We will continue to monitor the patient closely Total critical care time spent with patient, nursing staff, critical care team over 35 minutes ATTESTATION BY PHYSICIAN I have seen and examined the patient. I reviewed the documentation, medical decision making, and treatment plan as noted by the mid-level provider above. I agree with the findings and plan of care. FREDDY KENT MD, [facility] Jan 09, 2025 09:31
[2025-01-09 10:42] LABS: COVID19 (SARS ANTIGEN RAPID) PRESUMPTIVE NEGATIVE (NEGATIVE); INFLUENZA TYPE A Negative For Type A (NEGATIVE); INFLUENZA TYPE B Negative For Type B (NEGATIVE)
--- NOTE | 2025-01-09 10:56 | PN ---
[facility] PROGRESS NOTE Date of Service: Jan 09, 2025 Time of Service: 10:54 SUBJECTIVE: This is a 54-year-old male who presented to [facility] with a non-STEMI. He underwent left heart catheterization which showed severe multi-vessel coronary artery disease with mid to apical inferior hypokinesis, LVEF 45-50%. He underwent echocardiogram 12/19/2024 which showed an ejection fraction of 55- 60%, mild LVH, normal-sized left atrium, mild mitral valve regurgitation and mild tricuspid valve regurgitation. He was transferred to [facility] for CABG. 12/25 patient remains admitted to the PCU, case discussed with the RN, no acute events overnight, he denied chest pain, shortness shortness for breath, no nausea, no vomiting, no abdominal discomfort. Cardiology input noted and appreciated, patient to continue aspirin 81 mg p.o. daily and atorvastatin 40 mg p.o. daily. Continue metoprolol tartrate 25 mg p.o. b.i.d.. Pending evaluation by CT surgery for consideration for CABG. Discussed with the patient. 12/26 patient remains admitted to the PCU, case discussed with the RN, no acute events overnight, the time of my visit the patient is comfortably in bed, alert oriented x3, eating breakfast, tolerating well, denies nausea, no vomiting, no abdominal discomfort, he denies chest pain, no shortness a breath. Remains on aspirin 81 mg p.o. daily, atorvastatin and metoprolol 25 mg p.o. b.i.d.. Pending evaluation by CT surgery for consideration of CABG. 12/27 patient is seen and examined at bedside, case discussed with the RN, no acute events overnight, currently the patient NPO, scheduled for CABG today by Cardiothoracic surgeon. We will continue to follow. 12/28 patient is seen and examined at bedside, case discussed with the RN, no acute events overnight, currently the patient NPO, scheduled for CABG today by Cardiothoracic surgeon. We will continue to follow. 12/29 patient is seen and examined at bedside, remains admitted to the ICU, postoperative day 1., status post CABG 12/28/2024, patient on insulin drip, nitroglycerin drip, alert oriented x3 following commands, however was mildly agitated earlier this morning, motion with the RN started on Precedex. Patient with chest tube in place. Further recommendations per Cardiothoracic surgeon. 12/30 patient remains admitted to the ICU, case discussed with the RN, patient remains confused, trying to pull his IV lines, remains on Precedex. Throughout the balloon pump in place, just to be breath, remains on epinephrine, Levophed, Lasix drip, dobutamine drip. Creatinine today at 3.0. Nephrology consultation requested, we will follow input and recommendation. Continue to monitor liver enzymes in a.m., follow ammonia level (at the time of my dictation less than 10). Continue to follow critical care input and recommendation. Prognosis remains guarded. 12/31 54-year-old male who was transferred from [facility] with a non- STEMI. He underwent left heart catheterization which showed severe multi-vessel coronary artery disease with mid to apical inferior hypokinesis, LVEF 45-50%. He underwent echocardiogram 12/19/2024 which showed an ejection fraction of 55- 60%, mild LVH, normal-sized left atrium, mild mitral valve regurgitation and m ild tricuspid valve regurgitation. He was transferred to [facility] for CABG. Cardiothoracic surgeon consultation requested, patient underwent CABG 12/28/2024. Continue to follow Cardiothoracic input and recommendations. Patient has been mildly confused post procedure, started on Precedex. 01/01 54-year-old male who was transferred from [facility] with a non- STEMI. He underwent left heart catheterization which showed severe multi-vessel coronary artery disease with mid to apical inferior hypokinesis, LVEF 45-50%. He underwent echocardiogram 12/19/2024 which showed an ejection fraction of 55- 60%, mild LVH, normal-sized left atrium, mild mitral valve regurgitation and mild tricuspid valve regurgitation. He was transferred to [facility] for CABG. Cardiothoracic surgeon consultation requested, patient underwent CABG 12/28/2024. At the time of my visit resting comfortably in bed, off Precedex, following commands, status post interval removal of intra-aortic balloon pump yesterday, remains on dobutamine and nitroglycerin drip as well as argatroban. Continue to follow critical Care and Cardiothoracic input and recommendations. 01/02/25: Patient was evaluated at the bedside. Today is postop Day 5 and he is recovering well. Patient underwent thrombectomy in the femoral artery of left lower extremity and removal of intra-aortic balloon pump yesterday. Patient has mottled appearance in the left great toe and dorsalis pedis pulsations are present. His chest tube output was 320 mL over the last 24 hours. His stool was positive for occult blood and a GI consult has been placed. Cardiology advised to continue the current treatment. Patient is weaned off Levophed and is currently on Lasix, dobutamine, nitroglycerin, and argatroban drips. A swallow test will be performed today to evaluate the need for removing NG tube. 01/03/25: Patient was evaluated at the bedside, this is postop day 6 and is recovering well. Patient has mottled appearance in the left great toe extending into all the digits. Dorsalis pedis pulsations were diminished with palpation but detected on Doppler. His chest tube output was 310 mL today. A GI consult was placed for occult blood however no intervention was recommended and advised to continue Protonix 40 mg. Nephrology recommended no renal replacement as alicia ent has good urine output,3 L today and is responding well to diuresis. Patient is continued on Lasix, dobutamine, nitroglycerin, and argatroban drips. NG tube was removed and patient was started on pureed heart healthy diet as tolerated. 01/04/2025: Patient was evaluated at the bedside, this is postop day 7. Patient had an episode of AFib with rapid ventricular response this morning and was cardioverted with amiodarone and continued on drip. Patient's left leg discoloration has improved, but still has diminished pulses only detected by Doppler. His chest tube output is 140 mL. Patient's ERICK has been worsening with creatinine 7.8 today however he has adequate urine output, 3.5 L today. Cardiology recommended to reduce Lasix drip to 2.5 and nephrology advised that patient's creatinine is stabilizing and renal function will improve in the next few days. Patient is still continuing on argatroban, nitro, and dobutamine drips. Otherwise patient has been recovering well tolerating pureed food and only complains of occasional throat pain due to cough. He was encouraged to cough to clear the chest secretions and use p.r.n. benzocaine spray for relief. His chest x-ray shows clearing pleural effusion and pulmonary edema. 01/05/2025: Patient was evaluated at the bedside and this is postop day. Patient has been in sinus rhythm since the AFib episode this morning. IV amiodarone was stopped and transitioned to p.o. 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 Ship Superintendent recommended applying nitroglycerin paste and and covered it in dressing. Patient's ERICK continues to worsen, creatinine 8.2 today. However he is maintaining a good urine output, 2500 today. He has been weaning of Lasix drip. Patient has been encouraged to use incentive spirometry and cough as tolerated to clear the chest secretions. Chest x-ray showed no evidence of pulmonary venous congestion today. 01/06/2025: Patient was evaluated at the bedside, he was sitting comfortably in his chair. Patient has been in sinus rhythm. Patient continues on argatroban, Lasix, and dobutamine drips. Patient's ERICK seemed to be stabilizing his creati nine is 8.3 compared to 8.2 yesterday. Patient is maintaining good urine output, 2L in the last 24 hours. Patient's left foot was covered in dressing. Dr. Persaud evaluated the patient today and recommended walking boot with dressing if he is cleared by Cardiology for ambulation. His demarcating necrosis of the distal aspects of digits 1, 2, 3, and 4 on the left side seemed to be improving. Dr. Persaud recommended to continue nitroglycerin paste. Patient encouraged to use incentive spirometry and cough and was asked to use benzocaine for relief from throat pain. 01/07/2025 - patient seen at bedside in room 215 , patient is alert awake and oriented. Patient continues to be on argatroban, Lasix drips, his acute kidney injury possibly secondary to ATN secondary to hypotensive episode seems resolving while maintaining good urine output. Patient still complains of cough, pain in the left lower extremity. Patient's phosphorus trended down to 6.8 And anion gap closed down to 12 today. Patient currently hemodynamically stable and we will continue to monitor closely. 01/08/2025 Patient is seen and examined at the bedside. Awake alert and oriented and sitting comfortably in the chair. Argatroban drip is discontinued and patient is started on Heparin for DVT prophylaxis and Plavix 75 mg [for NSTEMI] by cardiology. Vitals blood pressure ranging in 110/80s, pulse rate 80s, respiratory rate in 20s to 30s, SpO2 greater than 95% on room air. Patient had an episode of AFib today. Currently in sinus rhythm. Chest tube and arterial line are discontinued as per CT is recommendations. Urine output 1.8 L. He still complains of productive cough, poor appetite. Labs hemoglobin stable at 10.1, potassium low at 3.1, BUN 93, creatinine improved from 7.9-7.5. Chest x-ray revealed no evidence of airspace consolidation or pulmonary venous congestion. 01/09/25: Patient was seen and evaluated at the bedside. He was awake, alert, and oriented to time place and person. Patient had been in sinus rhythm and had no acute events overnight. His vitals have been stable and only complains of throat pain. His creatinine is improving, 7.4 from 7.5 yesterday. He is maintaining good urine output of 2 L[place] [address] today and is receiving Zosyn. His chest x-ray showed trace left pleural effusion. Still has productive cough and a poor appetite. Speech evaluation was placed for tomorrow for suspected aspiration. Testing for influenza and COVID-19 were placed. REVIEW OF SYSTEMS CONSTITUTIONAL: Denies fevers, chills, or night sweats. No unintentional weight loss reported., Throat irritation NEUROLOGICAL: Denies headache, amaurosis fugax, motor weakness, sensory deficit, vertigo/spinning sensation, gait abnormalities, or tremors. CARDIOVASCULAR: Denies any exertional angina, dyspnea on exertion, orthopnea, paroxysmal nocturnal dyspnea, palpitations, life-threatening arrhythmias, claudication. PULMONARY: Denies any shortness of breath, hemoptysis, pleuritic chest pain. Patient has cough with clear sputum GASTROINTESTINAL: Denies any type of dysphagia to either liquids or solids. Denies nausea, vomiting, pyrosis, early satiety, abdominal pain, diarrhea, constipation, or changes in stool consistency or caliber. GENITOURINARY: Denies frequency, urgency, nocturia, hematuria or incontinence. Andres in place PHYSICAL EXAM GENERAL APPEARANCE: Patient is alert, oriented, and comfortable lying down and sitting. NECK: Supple. No JVD. CHEST: Normal chest expansion. Telemetry in place. LUNGS: Absence of any rales, rhonchi or any wheezing. Chest tube in place. CARDIOVASCULAR: Regular. S1 and S2 normal. No appreciable rubs, murmurs or gallops. ABDOMEN: Soft, nontender, and nondistended. There is no rebound, voluntary guarding, or rigidity. : Deferred. No Andres. EXTREMITIES: LLE pulses present per Doppler, left toes and foot covered in dressing. Vital Signs (last 8hr) Date Time Temp Pulse Resp B/P (MAP) Pulse Ox O2 Delivery O2 Flow Rate FiO2 01/09/25 09:00 93 17 148/99 99 Room Air 01/09/25 08:00 99.1 97 22 146/96 98 Room Air 01/09/25 08:00 100 Nasal Cannula* 3 32 01/09/25 07:26 97 20 01/09/25 07:25 97 20 N/A Room Air 01/09/25 06:00 89 30 140/96 98 Room Air 01/09/25 05:00 91 28 134/100 98 Room Air 01/09/25 04:00 98.2 88 27 151/92 100 Room Air 01/09/25 04:00 100 Room Air* 0 21 01/09/25 03:00 88 21 151/97 98 Room Air LABS: Laboratory: Test 01/09/25 09:05 01/09/25 05:04 Range/Units Influenza Type A Antigen Negative For Type A NEGATIVE Influenza Type B Antigen Negative For Type B NEGATIVE SARS-CoV-2 Antigen (Rapid) PRESUMPTIVE NEGATIVE NEGATIVE White Blood Count 12.1 H 4.8-10.8 K/uL Red Blood Count 4.45 L 4.50-6.20 MIL/uL Hemoglobin 11.7 L 14.0-18.0 g/dL Hematocrit 36.9 L 42-54 % Mean Corpuscular Volume 82.9 79-99 fL Mean Corpuscular Hemoglobin 26.3 L 27.0-33.0 pg Mean Corpuscular Hemoglobin Concent 31.7 L 32.0-36.0 g/dL Red Cell Distribution Width 27.5 H 11.0-15.5 % Platelet Count 370 # 130-400 K/uL Mean Platelet Volume 10.9 H 7.5-10.5 fL Nucleated Red Blood Cells 0.4 H 0.0-0.19 % Sodium Level 137 136-145 mmol/L Potassium Level 3.7 3.5-5.1 mmol/L Chloride Level 98 L 101-111 mmol/L Carbon Dioxide Level 25 21-32 mmol/L Blood Urea Nitrogen 89 *H 7-18 mg/dL Creatinine 7.4 H 0.5-1.3 mg/dL Glomerular Filtration Rate Calc 8 >90 mL/min Random Glucose 102 70-105 mg/dL Total Calcium 8.6 8.5-10.1 mg/dL Phosphorus Level 7.3 H 2.5-4.9 mg/dL Magnesium Level 2.30 1.80-2.40 mg/dL Total Bilirubin 0.6 0.2-1.0 mg/dL Aspartate Amino Transf (AST/SGOT) 56 H 10-37 U/L Alanine Aminotransferase (ALT/SGPT) 25 12-78 U/L Alkaline Phosphatase 121 50-136 U/L Total Protein 7.1 6.0-8.3 g/dL Albumin 1.9 L 3.5-5.0 g/dL Procalcitonin 1.13 H 0.05-0.5 ng/mL Current Medications Medications (Trade) Dose Ordered Sig/Mila Route PRN Reason Start Time Stop Time Status Last Admin Dose Admin Acetaminophen (TYLenol 325MG TAB) 650 mg Q4H PRN PO Temp >38.3C(AFTER EXTUBATION) 12/28/24 14:00 01/27/25 13:59 Acetaminophen (TYLenol 325MG TAB) 650 mg Q6H PRN PO MILD PAIN (1-3) 12/24/24 01:30 12/28/24 13:57 DC 12/27/24 23:45 650 MG Acetaminophen (TYLenol 325MG TAB) 650 mg Q6H PRN PO TEMPERATURE GREATER THAN 101.5 12/24/24 03:00 12/28/24 14:10 DC Acetaminophen (TYLenol 325MG TAB) 650 mg Q6H PRN PO MILD PAIN (1-3) 12/28/24 14:00 01/27/25 13:59 01/05/25 20:03 650 MG Acetaminophen (TYLenol 650MG SUPPOSITORY) 650 mg Q4H PRN RC Temp >38.3C WHILE INTUBATED 12/28/24 14:00 01/07/25 19:35 DC Acetaminophen (acetaMINOPHEN) 1,000 mg Q6H6 IV 12/28/24 18:00 12/29/24 17:59 DC 12/29/24 17:27 1,000 MG Acetaminophen (acetaMINOPHEN) 1,000 mg Q6H6 IVPB 12/30/24 00:00 12/31/24 20:14 DC 12/30/24 18:16 1,000 MG Albumin Human 250 ml @ 0 mls/hr AD PRN IV IF HEMODYNAMICALLY UNSTABLE 12/28/24 14:00 12/29/24 09:28 DC 12/29/24 09:28 250 MLS/HR Albuterol (DUOneb) 1 UDVIAL [id number] IH 01/01/25 18:00 01/01/25 15:25 DC Albuterol Sulfate (Proventil 0.083% 2.5mg/3ml) 2.5 mg ONCE STAT IH 12/30/24 10:22 12/30/24 10:32 DC 12/30/24 10:43 2.5 MG Aminocaproic Acid 80747 mg/Sodium Chloride 310 ml @ 25 mls/hr AD IV 12/28/24 14:00 12/28/24 14:14 DC Aminocaproic Acid 66896 mg/Sodium Chloride 480 ml @ 0 mls/hr AD PRN IV BLEEDING CONTROL 12/27/24 11:00 01/07/25 19:35 DC Amiodarone HCl (pacERONE 200MG) 200 mg DAILY PO 01/05/25 09:00 02/04/25 08:59 01/09/25 08:10 200 MG Amiodarone HCl 150 mg/Dextrose 103 ml @ 618 mls/hr ONCE IV 01/04/25 06:30 01/04/25 06:21 DC Amiodarone HCl 360 mg/Dextrose 207.2 ml @ 33.3 mls/hr AD IV 01/04/25 06:30 01/04/25 06:21 DC Amiodarone HCl 540 mg/Dextrose 310.8 ml @ 16.7 mls/hr [id number] IV 01/04/25 06:30 01/09/25 09:26 DC 01/04/25 13:01 16.7 MLS/HR Apixaban (EliquIS) 5 mg HS PO 01/07/25 21:00 01/07/25 19:35 DC Argatroban 250 mg/ Sodium Chloride 250 ml @ 0 mls/hr PROTOCOL IV 12/31/24 16:30 01/07/25 19:30 DC 01/07/25 16:32 4.17 MLS/HR Aspirin (Aspirin 81mg Ec Tab) 81 mg DAILY PO 12/24/24 09:00 01/23/25 08:59 01/09/25 08:11 81 MG Atorvastatin Calcium (LIPItor 40MG) 40 mg HS PO 12/24/24 21:00 01/01/25 11:16 DC 12/31/24 20:44 40 MG Atorvastatin Calcium (LIPItor 40MG) 40 mg HS PO 01/07/25 21:00 02/06/25 20:59 01/08/25 21:18 40 MG Benzocaine (Cepacol Sore Throat Lozenge) 1 each Q4H PRN MM SORE THROAT 01/03/25 13:30 02/02/25 13:29 01/06/25 11:16 1 EACH Bisacodyl (DulcoLAX) 10 mg DAILY PRN RC CONSTIPATION - MOM INEFFECTIVE 12/29/24 14:00 01/28/25 13:59 12/30/24 11:05 10 MG Calcium Gluconate 1 gm/Sodium Chloride 60 ml @ 200 mls/hr AD PRN IV HYPOCALCEMIA 12/28/24 14:00 01/27/25 13:59 01/01/25 01:52 200 MLS/HR Cefazolin Sodium (ANCEF 1 gm vial) 2 gm ONCALL IVP 12/26/24 16:30 12/26/24 16:28 DC Cefazolin Sodium (Ancef) 2 gm ONCALL PRN IVP SURGERY 12/26/24 16:30 12/28/24 13:57 DC Cefazolin Sodium (Ancef) 2 gm Q8H IVPB 12/28/24 19:00 12/29/24 11:01 DC 12/29/24 11:04 2 GM Clopidogrel Bisulfate (plaVIX 75MG) 75 mg DAILY PO 01/08/25 09:00 02/07/25 08:59 01/09/25 08:10 75 MG Dexamethasone (DeCADron 4 mg TAB) 6 mg DAILY PO 01/09/25 09:00 01/09/25 08:06 DC Dexamethasone (DeCADron 4 mg TAB) 10 mg BID PO 01/09/25 09:00 02/08/25 08:59 01/09/25 08:10 10 MG Dexmedetomidine/ Sodium Chloride (PRECEdex 400MCG/ 100ML-NS) 400 mcg PROTOCOL IV 12/28/24 14:00 12/29/24 13:59 DC 12/29/24 12:16 400 MCG Dexmedetomidine/ Sodium Chloride (PRECEdex 400MCG/ 100ML-NS) 400 mcg PROTOCOL IV 12/29/24 18:00 01/28/25 17:59 12/31/24 06:05 400 MCG Dextrose (D50w) 50 ml AD PRN IV HYPOGLYCEMIA PROTOCOL 12/28/24 14:00 01/27/25 13:59 Dextrose (D50w) 50 ml ONCE STAT IV 12/30/24 11:36 12/30/24 11:39 DC 12/30/24 11:45 50 ML Dextrose/Sodium Chloride 1,000 ml @ 50 mls/hr Q20H IV 12/30/24 11:30 01/01/25 16:17 DC 01/01/25 02:09 50 MLS/HR Dobutamine HCl/ Dextrose 250 ml @ 0 mls/hr PROTOCOL IV 12/29/24 14:00 01/08/25 15:43 DC 01/05/25 08:48 4.1 MLS/HR Docusate Sodium (COLace 100MG CAP) 100 mg BID PO 12/28/24 21:00 12/29/24 08:01 DC 12/28/24 20:53 100 MG Docusate Sodium (COLace LIQUID 100MG/10ML) 100 mg BID PO 12/29/24 08:00 01/28/25 07:59 01/09/25 08:10 100 MG Enoxaparin Sodium (Lovenox) 30 mg DAILY SQ 12/31/24 09:00 12/31/24 16:12 DC Enoxaparin Sodium (Lovenox) 30 mg DAILY SQ 01/08/25 09:00 01/07/25 20:03 DC Epinephrine HCl 10 mg/Sodium Chloride 250 ml @ 0 mls/hr AD PRN IV TITRATE 12/27/24 11:00 01/26/25 10:59 12/30/24 04:29 0 MLS/HR Epinephrine HCl 10 mg/Sodium Chloride 250 ml @ 0 mls/hr AD PRN IV POST-OP CARDIOVASCULAR ORDERS 12/28/24 14:00 12/28/24 14:14 DC Famotidine (Pepcid 20mg Vial) 20 mg BID IV 12/28/24 21:00 12/31/24 20:20 DC 12/31/24 08:51 20 MG Famotidine (Pepcid 20mg Vial) 20 mg Q48H IV 01/02/25 09:00 01/02/25 04:51 DC Famotidine (Pepcid 20mg Tab) 20 mg DAILY PO 12/24/24 09:00 12/28/24 13:54 DC 12/26/24 10:19 20 MG Furosemide (LASix 20MG TAB) 20 mg Q12H PO 12/30/24 09:00 12/30/24 08:34 DC Furosemide (LASix 20MG VIAL) 20 mg Q12H IV 12/29/24 09:00 12/30/24 08:34 DC 12/29/24 09:20 20 MG Furosemide (LASix 40MG VIAL) 40 mg Q12H IV 01/08/25 20:00 02/07/25 19:59 01/09/25 08:10 40 MG Furosemide 100 mg/ Sodium Chloride 100 ml @ 0 mls/hr PROTOCOL IV 12/29/24 14:30 01/08/25 13:45 DC 01/07/25 08:41 0 MLS/HR Glucagon (Glucagon 1mg Kit) 1 mg AD PRN IM HYPOGLYCEMIA PROTOCOL 12/28/24 14:00 01/27/25 13:59 Guaifenesin (MUCinex 600 MG TABLET.ER) 600 mg BID PRN PO COUGH 01/08/25 09:30 02/07/25 09:29 Guaifenesin/ Dextromethorphan (RobiTUSSin DM 200/20MG 10ML) 10 ml Q4H PRN PO COUGH 01/03/25 16:30 01/08/25 09:29 DC 01/07/25 08:25 10 ML Heparin Sodium (Porcine) (HEParin 5,000 UNIT VIAL) *calculation based on ACTUAL B... AD PRN IV HEPARIN PROTOCOL 12/24/24 02:30 12/28/24 13:54 DC 12/24/24 17:32 5,000 UNIT Heparin Sodium (Porcine) (HEParin 5,000 UNIT VIAL) 5,000 unit BID SQ 01/08/25 09:00 02/07/25 08:59 01/09/25 08:30 5,000 UNIT Heparin Sodium/ Dextrose 250 ml @ 0 mls/hr Q6H IV 12/24/24 02:30 12/28/24 13:54 DC 12/27/24 17:04 11.3 MLS/HR Hydralazine HCl (APRESOLine 20MG INJ) 10 mg Q6H PRN IV For:SBP above 160;DBP above 90 12/24/24 03:00 12/28/24 13:54 DC Insulin Human Regular (humuLIN R 100 UNIT/ML 3ML) 10 unit ONCE STAT IV 12/30/24 11:42 12/30/24 11:45 DC 12/30/24 12:01 10 UNIT Insulin Human Regular (humuLIN R 100 UNIT/ML 3ML) 10 unit ONCE STAT SQ 12/30/24 11:36 12/30/24 11:43 DC Insulin Human Regular 100 unit/ Sodium Chloride 100 ml @ 0 mls/hr AD IV 12/28/24 14:00 12/29/24 17:55 DC 12/28/24 17:09 5 MLS/HR Ipratropium Topping (AtrovENT UD) 0.5 mg [id number] IH 12/30/24 12:00 01/29/25 11:59 01/09/25 07:24 0.5 MG Lactulose (Constulose 20gm/ 30ml Udcup) 20 gm BID PRN PO CONSTIPATION 12/24/24 03:00 12/28/24 13:54 DC 12/26/24 21:30 20 GM Lactulose (Constulose 20gm/ 30ml Udcup) 20 gm BID PRN PO CONSTIPATION 12/28/24 14:00 01/27/25 13:59 12/30/24 07:50 20 GM Lidocaine HCl/ Dextrose 250 ml @ 0 mls/hr AD PRN IV TITRATE 12/28/24 22:30 12/29/24 16:00 DC 12/29/24 06:53 15 MLS/HR Magnesium Hydroxide (Milk Of Magnesium 30ml) 30 ml DAILY PRN PO CONSTIPATION 12/28/24 14:00 01/27/25 13:59 12/30/24 10:18 30 ML Magnesium Sulfate 50 ml @ 12.5 mls/hr AD PRN IV MAG LEVEL LESS THAN 2.0 12/28/24 14:00 01/27/25 13:59 12/28/24 18:42 12.5 MLS/HR Magnesium Sulfate 50 ml @ 0 mls/hr PROTOCOL PRN IV MAGNESIUM PROTOCOL 12/26/24 15:00 12/28/24 14:10 DC Metolazone (zarOXOlyn) 5 mg ONCE PO 12/31/24 12:00 12/31/24 20:18 DC 12/31/24 12:01 5 MG Metolazone (zarOXOlyn) 5 mg ONCE PO 01/01/25 16:30 01/02/25 16:29 DC 01/01/25 16:53 5 MG Metoprolol Tartrate (loprESSOR) 12.5 mg BID PO 12/30/24 09:00 01/04/25 08:51 DC 01/03/25 20:09 12.5 MG Metoprolol Tartrate (loprESSOR) 25 mg BID PO 12/25/24 21:00 12/28/24 13:54 DC 12/28/24 09:28 25 MG Metoprolol Tartrate (loprESSOR) 25 mg TID PO 01/04/25 09:00 01/06/25 13:08 DC 01/06/25 09:27 25 MG Metoprolol Tartrate (loprESSOR) 50 mg BID PO 01/06/25 21:00 02/05/25 20:59 01/09/25 08:11 50 MG Morphine Sulfate (morPHINE 2MG SYG) 0.5 mg Q2H PRN IV MODERATE PAIN (4-6) 12/28/24 14:00 12/29/24 13:59 DC Morphine Sulfate (morPHINE 2MG SYG) 1 mg Q2H PRN IV SEVERE PAIN (7-10) 12/28/24 14:00 12/29/24 13:59 DC 12/28/24 17:05 1 MG Morphine Sulfate (morPHINE 2MG SYG) 2 mg Q4H PRN IVP SEVERE PAIN (7-10) 12/24/24 03:00 12/28/24 13:54 DC 12/26/24 02:43 2 MG Nitroglycerin (Nitroglycerin 1gm Oint) 0.5 inch Q8H5 TD 12/24/24 01:30 12/28/24 13:54 DC 12/27/24 12:57 0.5 INCH Nitroglycerin (Nitroglycerin 1gm Oint) 1 inch Q8H TD 01/04/25 15:00 02/03/25 14:59 01/09/25 08:11 1 INCH Nitroglycerin/ Dextrose 0 ml @ 0 mls/hr AD IV 12/28/24 14:00 12/31/24 14:00 DC Nitroglycerin/ Dextrose 0 ml @ 0 mls/hr AD PRN IV TITRATE 01/01/25 06:30 01/31/25 06:29 01/07/25 01:12 0 MLS/HR Norepinephrine Bitartrate 250 ml @ 0 mls/hr AD PRN IV TITRATE 12/27/24 11:00 01/26/25 10:59 01/04/25 06:14 0 MLS/HR Norepinephrine Bitartrate 8 mg/ Dextrose 250 ml @ 0 mls/hr AD PRN IV POST-OP CARDIOVASCULAR ORDERS 12/28/24 14:00 12/28/24 14:14 DC Nystatin (NYSTatin 207633 UNIT/ML 5ML UDCUP) 10 ml TID PO 01/07/25 21:00 02/06/25 20:59 01/09/25 09:43 10 ML Nystatin (NystOP 15 GM POWDER) APPLY TO PERINEAL AREA... BID TP 01/08/25 21:00 02/07/25 20:59 01/09/25 08:11 1 APPL Ondansetron HCl (zoFRAN 4MG INJ) 4 mg Q6H PRN IV NAUSEA/VOMITING 12/24/24 03:00 12/28/24 13:54 DC Ondansetron HCl (zoFRAN 4MG INJ) 4 mg Q6H PRN IV NAUSEA/VOMITING 12/28/24 14:00 01/27/25 13:59 12/30/24 11:01 4 MG Pantoprazole Sodium (PROTonix 40MG INJ) 40 mg BID IVP 01/05/25 09:00 02/04/25 08:59 01/09/25 08:10 40 MG Pantoprazole Sodium (PROTonix 40MG INJ) 40 mg Q12H IVP 01/02/25 05:00 01/05/25 04:04 DC 01/04/25 16:00 40 MG Phenol (Sore Throat [place]) 1 SPRAY Q4H PRN PO SORE THROAT 01/06/25 10:30 01/09/25 08:15 DC 01/06/25 16:37 1 SPRY Piperacillin Sod/ Tazobactam Sod (Zosyn 3.375gm+NS 50ml) 3.375 gm Q12H IV 12/30/24 15:30 01/05/25 04:05 DC 01/04/25 14:38 3.375 GM Piperacillin Sod/ Tazobactam Sod (Zosyn 3.375gm+NS 50ml) 3.375 gm Q12H IV 01/05/25 09:00 01/09/25 08:59 DC 01/08/25 20:35 3.375 GM Potassium Phosphate 250 ml @ 42 mls/hr AD PRN IV LOW PHOS LEVEL 12/28/24 14:00 01/27/25 13:59 12/29/24 06:12 42 MLS/HR Potassium Chloride 100 ml @ 100 mls/hr AD PRN IV POTASSIUM PROTOCOL 12/26/24 15:00 12/28/24 13:54 DC Potassium Chloride 100 ml @ 100 mls/hr AD PRN IV HYPOKALEMIA 12/28/24 14:00 01/27/25 13:59 01/06/25 20:02 100 MLS/HR Potassium Chloride 100 ml @ 100 mls/hr AD PRN IV POTASSIUM PROTOCOL 01/08/25 08:30 02/07/25 08:29 Potassium Chloride (K-Dur/Klor-Con 20meq) 20 meq AD PRN PO POTASSIUM PROTOCOL 12/26/24 15:00 12/28/24 13:54 DC 12/26/24 18:27 20 MEQ Potassium Chloride (KCl 10% Elixir 20meq/15ml) 20 meq AD PRN PO POTASSIUM PROTOCOL 12/26/24 15:00 12/28/24 13:54 DC Propofol 100 ml @ 0 mls/hr AD PRN IV SEDATION 12/28/24 14:00 01/01/25 13:59 DC Sodium Polystyrene Sulfonate (kayEXALate 15 GM/60 ML) 30 gm ONCE STAT PO 12/30/24 11:36 12/30/24 11:39 DC 12/30/24 11:45 30 GM Sodium Bicarbonate (Sodium Bicarb 50meq 50ml Vial) 50 meq AD PRN IV OTHER[SEE DOSING INSTRUCTIONS] 12/28/24 14:00 12/31/24 14:00 DC 12/30/24 12:45 100 MEQ Sodium Chloride 500 ml @ 0 mls/hr AD IV 12/28/24 14:00 01/27/25 13:59 Sodium Chloride 1,000 ml @ 10 mls/hr ONCE IV 12/28/24 14:00 12/29/24 13:59 DC 12/28/24 17:06 10 MLS/HR Sodium Chloride (NS Flush 10ml) 10 ml Q8H PRN IVP IV LINE FLUSH 12/28/24 14:00 01/27/25 13:59 Sodium Chloride (Sodium Chloride 3% Inh) 4 ML [id number] IH 01/04/25 12:00 02/03/25 11:59 01/09/25 07:24 4 ML Tramadol HCl (UltRAM) 25 mg Q6H PRN PO MODERATE PAIN (4-6) 12/28/24 14:00 12/29/24 13:56 DC 12/29/24 11:05 25 MG Tramadol HCl (UltRAM) 50 mg Q6H PRN PO SEVERE PAIN (7-10) 12/28/24 14:00 12/29/24 13:56 DC Vasopressin 20 units/Sodium Chloride 100 ml @ 0 mls/hr PROTOCOL IV 12/30/24 15:30 01/29/25 15:29 12/31/24 10:40 6 MLS/HR DIAGNOSTICS / RADIOLOGY: [ ] PATIENT: ZHEN IVEY MR#: [id number] : 1970 SEX: M AGE: 54 LOCATION: 2CH ORDER 2300 STATUS: ADM IN REPORT#: [id number] SERVICE 0600 REASON: chest tube ORDERING PHYSICIAN: BORIS LOW PROCEDURE: CXR1VW - CHEST 1VW EXAM: CR Chest, 1 View. CLINICAL HISTORY: chest tube COMPARISON: CR Chest Dated 01/07 FINDINGS: LUNGS: The lungs show no infiltrate or other acute finding. PLEURAL SPACES: Trace left pleural effusion. No residual pneumothorax MEDIASTINUM: The cardiomediastinal silhouette is within normal limits. BONES: No aggressive appearing osseous lesion seen. Post sternotomy changes. MISCELLANEOUS: Right PICC line mid SVC IMPRESSION: 1. No acute pulmonary findings. 2. Trace left pleural effusion. 3. Right PICC line terminating in mid SVC. /[place] DICTATED BY: LUIS ALFREDO ARRINGTON MD DATE: 01/09/25838 ELECTRONICALLY SIGNED BY: LUIS ALFREDO ARRINGTON MD DATE: 01/09/25838 ASSESSMENT: Multi-vessel coronary artery disease status post CABG 12/28/2024 Non-STEMI. 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 Hypertension. Anemia. ERICK possibly due to ATN New onset atrial fibrillation, not POA PLAN: ACS NSTEMI due to Multi vessel CAD, s/p CABG Day 10 * Continue aspirin, atorvastatin * Argatroban drip is stopped and patient is started on clopidogrel by Cardiology * Encouraged to use IS and to clear the secretions and use p.r.n. benzocaine spray for throat irritation * Monitor chest tube output * Strict I/O and daily weights Leukocytosis post CABG on Day 12 * [place] [address] today * Ordered influenza and COVID-19 testing * Ordered speech evaluation for suspected aspiration pneumonia * We will follow up with the labs and continue to monitor HFrEF LV ejection fraction 25-30% by echo on 01/01/2025 * Patient LVEF is 25-30% by echocardiography, down from 50-55% on 12/27/24 * Lasix drip is weaned off and patient is started on Lasix 40 mg IV Q12H by Nephrology * Resume GDMT for heart failure when weaned from pressors and more stable * Strict I&O and daily weights 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, S/P LLE femoral thrombectomy * Patient has demarcating necrosis of the left toes and midfoot * Patient underwent left lower extremity femoral thrombectomy on 01/01, after finding monophasic waveforms be on popliteal artery by arterial Doppler * Continue atorvastatin and aspirin * Continue nitroglycerin paste as per shoe lay out planner * can ambulate with the use of a CAM walking boot with physical therapy with a walker as per podiatry consult * Monitor leg perfusion, pulses, swelling, and discoloration Anemia, post CABG * Patient received 4 units of packed RBCs * Patient hemoglobin is 11.7 today * Iron panel showed Iron 20, % Sat 5.5, TIBC 360 indicating Iron deficiency, received 2 doses of IV Venofer * Monitor CBC daily in the a.m. daily * Monitor for signs of bleeding Acute on chronic renal dysfunction * Patient urine output is currently 2 L * Creatinine Improved from 7.9-7.4 today * Monitor CBC and electrolytes in the a.m. daily * Avoid nephrotoxic agents New onset atrial fibrillation, not POA Amiodarone 200 mg p.o. as per Cardiology recommendation Currently in sinus rhythm GI prophylaxis with Protonix 40 mg IV Continue DVT prophylaxis with heparin 5000 SQ b.i.d. ATTESTATION BY PHYSICIAN I have seen and examined the patient. I reviewed the documentation, medical decision making, and treatment plan as noted by the resident provider above. I agree with the findings and plan of care. MISTY PORTER MD, HARSHAVARDHA MD Jan 09, 2025 10:56
--- NOTE | 2025-01-09 12:54 | PN ---
[facility] CARDIOLOGY PROGRESS NOTE Date Patient Seen: Jan 09, 2025 Time of Visit: 12:29 Interval History: No acute events overnight. Postoperative day #9 . Review of telemetry sinus rhythm with a heart rate of 80 beats per minute. Overnight urine output2 L, with a net-1.5 L. current creatinine 7.4, denies any cardiac symptoms or anginal equivalents. Pending OT PT. Physical Examination: GENERAL: [No acute distress.] NECK: R CVC LUNGS: [ diminished inspiratory effort. No wheezes, or rhonchi.] HEART: [Normal rate and rhythm. Normal S1 and S2 without murmurs, gallop or rub.] VASC: [Peripheral pulses +1 bilaterally. blistering to distal left foot with ecchymoses to distal digits] ABD: soft, nontender SKIN: [ecchymoses, blistering to LLE distal digits. sensation and motor intact NEURO: [Awake, alert , moves all extremities.] Laboratory: [ ] Hematology Labs: Test 01/09/25 05:04 Range/Units White Blood Count 12.1 H 4.8-10.8 K/uL Red Blood Count 4.45 L 4.50-6.20 MIL/uL Hemoglobin 11.7 L 14.0-18.0 g/dL Hematocrit 36.9 L 42-54 % Mean Corpuscular Volume 82.9 79-99 fL Mean Corpuscular Hemoglobin 26.3 L 27.0-33.0 pg Mean Corpuscular Hemoglobin Concent 31.7 L 32.0-36.0 g/dL Red Cell Distribution Width 27.5 H 11.0-15.5 % Platelet Count 370 # 130-400 K/uL Mean Platelet Volume 10.9 H 7.5-10.5 fL Nucleated Red Blood Cells 0.4 H 0.0-0.19 % Chemistry Labs: Test 01/09/25 05:04 Range/Units Sodium Level 137 136-145 mmol/L Potassium Level 3.7 3.5-5.1 mmol/L Chloride Level 98 L 101-111 mmol/L Carbon Dioxide Level 25 21-32 mmol/L Blood Urea Nitrogen 89 *H 7-18 mg/dL Creatinine 7.4 H 0.5-1.3 mg/dL Glomerular Filtration Rate Calc 8 >90 mL/min Random Glucose 102 70-105 mg/dL Total Calcium 8.6 8.5-10.1 mg/dL Phosphorus Level 7.3 H 2.5-4.9 mg/dL Magnesium Level 2.30 1.80-2.40 mg/dL Total Bilirubin 0.6 0.2-1.0 mg/dL Aspartate Amino Transf (AST/SGOT) 56 H 10-37 U/L Alanine Aminotransferase (ALT/SGPT) 25 12-78 U/L Alkaline Phosphatase 121 50-136 U/L Total Protein 7.1 6.0-8.3 g/dL Albumin 1.9 L 3.5-5.0 g/dL Procalcitonin 1.13 H 0.05-0.5 ng/mL Diagnostics / Radiology: [Copy/Paste Echos/Imaging Report here] Impression and Plan: ACS-NSTEMI MVCAD s/p CABG with VG-RCA, VG-OM, TORRES-LAD and VG-distal LAD LLE ALI while IABP in place, status post femoral thrombectomy, placed on argatroban. New onset atrial fibrillation with rapid ventricular response, converted. Hypertension ICMP LVEF 25-30% Acute renal failure without dialysis #ACS-NSTEMI on presentation Patient presented as a transfer for admission due to NSTEMI Presenting hemoglobin was 7.1 g, underwent EGD was negative for active bleeding or ulcers Coronary angiogram revealing multivessel CAD CV surgery was consulted for CABG s/p 4 v CABG and insertion of aortic balloon pump with VG-RCA, VG-OM, TORRES-LAD and VG-distal LAD Removal of IABP 12/31 Continue heparin infusion per protocol Continue [id number] mg daily, ASA 81 mg daily, Lopressor 50 mg every12 hours and atorvastatin 40 mg q.h.s. Rest of care by CV surgery #HFmrEF ICM-LVEF 25-30%- NYHA II Euvolemic and compensated on exam 2D echocardiogram (01/01/2025) LVEF 25-30%, hypokinetic anterior wall and apex. Strict I's and O's and daily weights. Urine output in the past 24 hours 2 L, with a net-1.5 L Continue Lasix 40 mg IV every 12 hours GDMT: Continue Lopressor 50 mg every12 hours Unable to optimize GDM T any further due to worsening renal function (nephrology is following) # paroxysmal atrial fibrillation Documented episode atrial fibrillation with RVR on 01/04/2025 Initially cardioverted with amiodarone bolus and infusion Current review of telemetry sinus rhythm with a heart rate of 80 beats per minute with no events overnight We will continue heparin infusion per protocol, we will recommend Eliquis once deemed safe by CV surgery Continue Lopressor 50 mg every 12 hours, amiodarone 200 mg daily Keep on telemetry, monitor/replace electrolytes as needed ( Mg >2 , K > 4 ) Thank you for this consult cardiology will continue to follow along Kane rivera MD ATTESTATION BY PHYSICIAN I have seen and examined the patient, reviewed the above documentation, participated in medical decision making, made necessary modifications, and agree with the treatment plan as documented by my mid-level provider above. MD IRASEMA Alas JAMES R MD Jan 09, 2025 12:54
--- NOTE | 2025-01-09 17:21 | PN ---
SUBJECTIVE: The patient is postop day #12 from a coronary artery bypass grafting. The patient is doing well, sitting in the bedside chair. His biggest issue right now is his renal function. He has nonoliguric renal insufficiency. OBJECTIVE: VITAL SIGNS: Stable, temperature 99.1. His blood pressure is 148/99. His respirations are 17, oxygen saturation 99%. HEENT: Head is normocephalic and atraumatic. Extraocular muscles are intact. He wears nasal cannula oxygen prongs under his nose. HEART: S1, S2. LUNGS: Unlabored at rest on oxygen. ABDOMEN: Reveals positive bowel sounds. EXTREMITIES: Left foot is wrapped in Kerlix. He has a sore on his left blackwell. LABORATORY DATA: His white cell count is 12,100, up from 8700. His BUN is 89 and his creatinine is 7.4. His chest x-ray reveals right lower lobe and left upper lobe atelectasis or early consolidation. ASSESSMENT AND PLAN: * Status post coronary artery bypass grafting. Continue aspirin, Plavix, metoprolol, and amiodarone as well as sternal precautions and cardiac rehab. * Postoperative acute pulmonary insufficiency secondary to thoracic surgery. Encouraged incentive spirometry. Wean nasal cannula oxygen to maintain oxygen saturations greater than 90%. * Hypercholesterolemia. Lipitor 40 mg p.o. at bedtime, low cholesterol, cardiac diet. * [id number] renal insufficiency. Nephrology is following the patient. The patient is nonoliguric. We will continue to trend his electrolytes. * DVT prophylaxis, heparin 5000 units subcutaneous b.i.d. TID: [id number] RECEIPT: [id number]
[2025-01-10] VITALS (56 sets, daily range): BP systolic 125–168; BP diastolic 58–101; PULSE 75–98; RESP 6–25; TEMP 97–98.3; O2SAT 95–99
--- NOTE | 2025-01-10 02:52 | PN ---
SUBJECTIVE: The patient is a very pleasant 54-year-old diabetic male who is followed up for diabetes, elevated renal function, status post coronary artery bypass grafting x 4, removal of intraaortic balloon pump with thrombectomy. The patient has ischemic changes to his left forefoot and midfoot. His pulses are strongly audible by Doppler on the left, strongly palpable on the right, has been receiving anticoagulation therapy, aspirin, Plavix, argatroban. Afebrile at 98.4, pulse 82, respirations 30, blood pressure 118/77. White count 12.1, H and H 11.7 and 36.9. Currently receiving dexamethasone, furosemide, heparin, Plavix, metoprolol, amiodarone, and vasopressin. The patient has been encouraged to ambulate with a CAM walking boot on the left with physical therapy. The patient has been followed by the Cardiology Service. The patient is being followed for paroxysmal atrial fibrillation. The patient has a BUN and creatinine level 89 and 7.4. Currently not receiving any antibiotic therapy. The patient is status post femoral thrombectomy. OBJECTIVE: On examination today,shows that he has dry black necrotic eschars to the tips of all the digits on the left foot. He has blister lesions encompassing the dorsal forefoot and plantar forefoot on the left. No evidence of abscess or ascending cellulitis. ASSESSMENT: A 54-year-old male status post thrombectomy and removal of aortic balloon pump. The patient with acute renal failure, new-onset atrial fibrillation, demarcating dry necrosis of all digits on the left in the presence of audible Doppler pulses of the anterior tibialan posterior tibial artery_on the left, dorsal forefoot and plantar forefoot hemorrhagic bulla. PLAN: We will continue to monitor the patient closely for the ischemic changes to the digits of his left foot. He is being followed for his acute renal failure by the Nephrology Service. The patient may ambulate with the use of a CAM walking boot on the left side with physical therapy. We will continue to follow the patient closely while in-house. TID: [id number] RECEIPT: [id number] [facility]
[2025-01-10 04:38] LABS: IMMATURE GRANULOCYTE ABSOLUTE 0.04 K/uL (0-1); NUCLEATED RED BLOOD CELLS 0.0 % (0.0-0.19); PLATELET COUNT (AUTO) 468 K/uL (130-400); RED BLOOD CELL COUNT(AUTO) 4.30 MIL/uL (4.50-6.20); RED CELL DISTRIBUTION WIDTH 26.8 % (11.0-15.5); WHITE BLOOD COUNT (AUTO) 7.5 K/uL (4.8-10.8)
[2025-01-10 04:56] LABS: ASPARTATE AMINOTRANSFERASE 35.0 U/L (10-37); CREATININE 7.1 mg/dL (0.5-1.3); GLOMERULAR FILTR. RATE CALC 8.0 mL/min (>90); GLUCOSE,RANDOM 160.0 mg/dL (70-105); PHOSPHORUS 7.6 mg/dL (2.5-4.9); SODIUM SERUM 136.0 mmol/L (136-145); TOTAL PROTEIN, SERUM 7.3 g/dL (6.0-8.3)
[2025-01-10 06:02] LABS: UREA NITROGEN, BLOOD 98.0 mg/dL (7-18)
--- NOTE | 2025-01-10 06:45 | PN ---
SUBJECTIVE: A 54-year-old diabetic male followed up for ischemic changes, all digits of the left foot; worsening renal function, BUN 98, creatinine 7.1. Potassium 3.0. White count 7.5, H and H 11.2 and 34.7, platelets 468. T-max 97.9, pulse 79, respirations 25, blood pressure 132/84. Receiving heparin, Plavix, amiodarone, nitro paste, vasopressin. No antibiotics. The patient is being followed by Cardiology, Nephrology, Cardiothoracic Surgery. Nephrology is following the patient and is closely monitoring. They feel there is no need for emergent renal replacement therapy. The patient is status post coronary artery bypass grafting x 4, 12/28/2024; status post removal of intraaortic balloon pump, 12/31/2024; and thrombectomy. OBJECTIVE: EXTREMITIES: His examination today, he has black necrotic eschar to the tips of all digits on the left. He has blistering lesions to the dorsal and plantar forefoot. Digits are cold to the touch. ASSESSMENT: A 54-year-old male, status post thrombectomy and removal of aortic balloon pump after four-vessel coronary artery bypass grafting; renal failure; new-onset atrial fibrillation; demarcating necrosis, all digits of the left foot in the presence of audible Dopplers to the anterior tibial and the posterior tibial on the left; hemorrhagic bulla, dorsal and plantar forefoot, midfoot on the left; acute renal failure. PLAN: We will continue to monitor closely for his ischemic changes to the digits of the left foot. He is afebrile, his white count is within normal limits, currently not receiving any antibiotic therapy. He has been followed for acute renal failure by the nephrology service. The patient may ambulate with the use of a CAM walking boot on the left side with physical therapy. Continue to follow up the patient closely while in-house. TID: [id number] RECEIPT: [id number]
--- NOTE | 2025-01-10 08:00 | NUR ---
care endorsed to me from Tamia Sharma RN
--- NOTE | 2025-01-10 08:46 | HMCIMG ---
EXAM: CR Chest, 1 view. CLINICAL HISTORY: Chest tube. COMPARISON: CR Chest. 01/08/2025. FINDINGS: The right PICC line with the tip in the superior vena cava. Stable scarring in the left mid zone. Stable trace mild left pleural effusion. The lungs show no infiltration. No pneumothorax. The cardio mediastinal silhouette is within normal limits. No acute osseous abnormality. IMPRESSION: The right PICC line with the tip in the superior vena cava. Stable scarring in the left mid zone. Stable trace mild left pleural effusion. /[place]
--- NOTE | 2025-01-10 09:20 | PN ---
FOLLOWUP PROGRESS NOTE SUBJECTIVE: A 54-year-old male who has had a prolonged hospital course. The patient with a history of diabetes mellitus and hypertension. He has a history of coronary artery disease status post CABG. The patient has had acute renal failure in the hospital. The patient's creatinine is stabilizing. Urine output has remained adequate and the patient is being seen as a followup visit for all of the above. REVIEW OF SYSTEMS: CONSTITUTIONAL: He is feeling improved. HEENT: No change in vision. No change in hearing. CARDIOVASCULAR: There is no current chest pain or palpitations. PULMONARY: There is no shortness of breath. GASTROINTESTINAL: He is tolerating a diet. MUSCULOSKELETAL: Complaints of weakness. OBJECTIVE: VITAL SIGNS: Blood pressure is 140/78, pulse 80. He is afebrile. GENERAL: He is a chronically ill male, older than appearing. HEENT: Head is atraumatic. Pupils are equal, round, reactive to light. Oropharynx is without exudate. Nares clear. NECK: There is no JVP. There is no thyromegaly. No mass. CARDIOVASCULAR: Regular. There is no S3, S4, or gallop. LUNGS: Coarse with equal thoracic movement. ABDOMEN: Soft, nondistended, and nontender. EXTREMITIES: Reveal no clubbing, no cyanosis. NEUROLOGICAL: He is awake. He is alert. He is oriented. LABORATORY DATA: Sodium 136, potassium 3, BUN 98, creatinine 7, hemoglobin 11, hematocrit 34. IMPRESSION: * Acute renal failure. * Coronary artery disease status post CABG. * Diabetes mellitus. * Hypertension. PLAN: The patient's creatinine continues to stabilize. Urine output has remained adequate. There is no acute need for any form of renal replacement therapy at this time. We will continue to monitor the patient closely. The patient's electrolytes have all been aggressively repleted. All labs can be repeated in the morning. TID: [id number] RECEIPT: [id number]
--- NOTE | 2025-01-10 09:47 | PN ---
SUBJECTIVE: The patient is status post coronary artery bypass grafting. He is postop day #13. The patient's intraaortic balloon pump has been removed. He has now been weaned off of nasal cannula oxygen. OBJECTIVE: GENERAL: He is sitting in the bedside chair and offers no complaints. VITAL SIGNS: Pulse 91, respirations 34, blood pressure 149/78. HEENT: Normocephalic, atraumatic. Extraocular muscles intact. His central venous line and nasal cannula oxygen have been removed. CHEST: His sternal wound is healing well. Chest tubes are out. ABDOMEN: Mild obesity with positive bowel sounds. He has Andres catheter in his bladder. EXTREMITIES: He has a Kerlix on his left foot. He can move his toes on his left foot. ASSESSMENT AND PLAN: * Status post coronary artery bypass grafting. Continue aspirin, Plavix, metoprolol, and cardiac rehab. We will consult case management for discharge planning. Also continue amiodarone 200 mg twice a day. We will change his Lasix from intravenous to p.o. Discontinue Andres catheter. * Hypercholesterolemia. Lipitor 40 mg p.o. at bedtime, low cholesterol, cardiac diet. * Deep venous thrombosis prophylaxis. Heparin 5000 units subcutaneous 2 times a day. TID: [id number] RECEIPT: [id number]
--- NOTE | 2025-01-10 12:07 | PN ---
CATAL[facility] PROGRESS NOTE Date of Service: Jan 10, 2025 Time of Service: 12:04 SUBJECTIVE: This is a 54-year-old male who presented to [facility] with a non-STEMI. He underwent left heart catheterization which showed severe multi-vessel coronary artery disease with mid to apical inferior hypokinesis, LVEF 45-50%. He underwent echocardiogram 12/19/2024 which showed an ejection fraction of 55- 60%, mild LVH, normal-sized left atrium, mild mitral valve regurgitation and mild tricuspid valve regurgitation. He was transferred [place] [facility] [place]. 12/25 patient remains admitted to the PCU, case discussed with the RN, no acute events overnight, he denied chest pain, shortness shortness for breath, no nausea, no vomiting, no abdominal discomfort. Cardiology input noted and appreciated, patient to continue aspirin 81 mg p.o. daily and atorvastatin 40 mg p.o. daily. Continue metoprolol tartrate 25 mg p.o. b.i.d.. Pending evaluation by CT surgery for consideration for CABG. Discussed with the patient. 12/26 patient remains admitted to the PCU, case discussed with the RN, no acute events overnight, the time of my visit the patient is comfortably in bed, alert oriented x3, eating breakfast, tolerating well, denies nausea, no vomiting, no abdominal discomfort, he denies chest pain, no shortness a breath. Remains on aspirin 81 mg p.o. daily, atorvastatin and metoprolol 25 mg p.o. b.i.d.. Pending evaluation by CT surgery for consideration of CABG. 12/27 patient is seen and examined at bedside, case discussed with the RN, no acute events overnight, currently the patient NPO, scheduled for CABG today by Cardiothoracic surgeon. We will continue to follow. 12/28 patient is seen and examined at bedside, case discussed with the RN, no acute events overnight, currently the patient NPO, scheduled for CABG today by Cardiothoracic surgeon. We will continue to follow. 12/29 patient is seen and examined at bedside, remains admitted to the ICU, postoperative day 1., status post CABG 12/28/2024, patient on insulin drip, nitroglycerin drip, alert oriented x3 following commands, however was mildly agitated earlier this morning, motion with the RN started on Precedex. Patient with chest tube in place. Further recommendations per Cardiothoracic surgeon. 12/30 patient remains admitted to the ICU, case discussed with the RN, patient remains confused, trying to pull his IV lines, remains on Precedex. Throughout the balloon pump in place, just to be breath, remains on epinephrine, Levophed, Lasix drip, dobutamine drip. Creatinine today at 3.0. Nephrology consultation requested, we will follow input and recommendation. Continue to monitor liver enzymes in a.m., follow ammonia level (at the time of my dictation less than 10). Continue to follow critical care input and recommendation. Prognosis remains guarded. 12/31 54-year-old male who was transferred from [facility] with a non- STEMI. He underwent left heart catheterization which showed severe multi-vessel coronary artery disease with mid to apical inferior hypokinesis, LVEF 45-50%. He underwent echocardiogram 12/19/2024 which showed an ejection fraction of 55- 60%, mild LVH, normal-sized left atrium, mild mitral valve regurgitation and m ild tricuspid valve regurgitation. He was transferred [place] [facility] [place]. Cardiothoracic surgeon consultation requested, patient underwent CABG 12/28/2024. Continue to follow Cardiothoracic input and recommendations. Patient has been mildly confused post procedure, started on Precedex. 01/01 54-year-old male who was transferred from [facility] with a non- STEMI. He underwent left heart catheterization which showed severe multi-vessel coronary artery disease with mid to apical inferior hypokinesis, LVEF 45-50%. He underwent echocardiogram 12/19/2024 which showed an ejection fraction of 55- 60%, mild LVH, normal-sized left atrium, mild mitral valve regurgitation and mild tricuspid valve regurgitation. He was transferred to [facility] [place]. Cardiothoracic surgeon consultation requested, patient underwent CABG 12/28/2024. At the time of my visit resting comfortably in bed, off Precedex, following commands, status post interval removal of intra-aortic balloon pump yesterday, remains on dobutamine and nitroglycerin drip as well as argatroban. Continue to follow critical Care and Cardiothoracic input and recommendations. 01/02/25: Patient was evaluated at the bedside. Today is postop Day 5 and he is recovering well. Patient underwent thrombectomy in the femoral artery of left lower extremity and removal of intra-aortic balloon pump yesterday. Patient has mottled appearance in the left great toe and dorsalis pedis pulsations are present. His chest tube output was 320 mL over the last 24 hours. His stool was positive for occult blood and a GI consult has been placed. Cardiology advised to continue the current treatment. Patient is weaned off Levophed and is currently on Lasix, dobutamine, nitroglycerin, and argatroban drips. A swallow test will be performed today to evaluate the need for removing NG tube. 01/03/25: Patient was evaluated at the bedside, this is postop day 6 and is recovering well. Patient has mottled appearance in the left great toe extending into all the digits. Dorsalis pedis pulsations were diminished with palpation but detected on Doppler. His chest tube output was 310 mL today. A GI consult was placed for occult blood however no intervention was recommended and advised to continue Protonix 40 mg. Nephrology recommended no renal replacement as alicia ent has good urine output,3 L today and is responding well to diuresis. Patient is continued on Lasix, dobutamine, nitroglycerin, and argatroban drips. NG tube was removed and patient was started on pureed heart healthy diet as tolerated. 01/04/2025: Patient was evaluated at the bedside, this is postop day 7. Patient had an episode of AFib with rapid ventricular response this morning and was cardioverted with amiodarone and continued on drip. Patient's left leg discoloration has improved, but still has diminished pulses only detected by Doppler. His chest tube output is 140 mL. Patient's ERICK has been worsening with creatinine 7.8 today however he has adequate urine output, 3.5 L today. Cardiology recommended to reduce Lasix drip to 2.5 and nephrology advised that patient's creatinine is stabilizing and renal function will improve in the next few days. Patient is still continuing on argatroban, nitro, and dobutamine drips. Otherwise patient has been recovering well tolerating pureed food and only complains of occasional throat pain due to cough. He was encouraged to cough to clear the chest secretions and use p.r.n. benzocaine spray for relief. His chest x-ray shows clearing pleural effusion and pulmonary edema. 01/05/2025: Patient was evaluated at the bedside and this is postop day. Patient has been in sinus rhythm since the AFib episode this morning. IV amiodarone was stopped and transitioned to p.o. 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 Weaving Machine Operator recommended applying nitroglycerin paste and and covered it in dressing. Patient's ERICK continues to worsen, creatinine 8.2 today. However he is maintaining a good urine output, 2500 today. He has been weaning of Lasix drip. Patient has been encouraged to use incentive spirometry and cough as tolerated to clear the chest secretions. Chest x-ray showed no evidence of pulmonary venous congestion today. 01/06/2025: Patient was evaluated at the bedside, he was sitting comfortably in his chair. Patient has been in sinus rhythm. Patient continues on argatroban, Lasix, and dobutamine drips. Patient's ERICK seemed to be stabilizing his creati nine is 8.3 compared to 8.2 yesterday. Patient is maintaining good urine output, 2L in the last 24 hours. Patient's left foot was covered in dressing. Dr. Persaud evaluated the patient today and recommended walking boot with dressing if he is cleared by Cardiology for ambulation. His demarcating necrosis of the distal aspects of digits 1, 2, 3, and 4 on the left side seemed to be improving. Dr. Persaud recommended to continue nitroglycerin paste. Patient encouraged to use incentive spirometry and cough and was asked to use benzocaine for relief from throat pain. 01/07/2025 - patient seen at bedside in room 215 , patient is alert awake and oriented. Patient continues to be on argatroban, Lasix drips, his acute kidney injury possibly secondary to ATN secondary to hypotensive episode seems resolving while maintaining good urine output. Patient still complains of cough, pain in the left lower extremity. Patient's phosphorus trended down to 6.8 And anion gap closed down to 12 today. Patient currently hemodynamically stable and we will continue to monitor closely. 01/08/2025 Patient is seen and examined at the bedside. Awake alert and oriented and sitting comfortably in the chair. Argatroban drip is discontinued and patient is started on Heparin for DVT prophylaxis and Plavix 75 mg [for NSTEMI] by cardiology. Vitals blood pressure ranging in 110/80s, pulse rate 80s, respiratory rate in 20s to 30s, SpO2 greater than 95% on room air. Patient had an episode of AFib today. Currently in sinus rhythm. Chest tube and arterial line are discontinued as per CT is recommendations. Urine output 1.8 L. He still complains of productive cough, poor appetite. Labs hemoglobin stable at 10.1, potassium low at 3.1, BUN 93, creatinine improved from 7.9-7.5. Chest x-ray revealed no evidence of airspace consolidation or pulmonary venous congestion. 01/09/25: Patient was seen and evaluated at the bedside. He was awake, alert, and oriented to time place and person. Patient had been in sinus rhythm and had no acute events overnight. His vitals have been stable and only complains of throat pain. His creatinine is improving, 7.4 from 7.5 yesterday. He is maintaining good urine output of 2 L[place] [id number] today and is receiving Zosyn. His chest x-ray showed trace left pleural effusion. Still has productive cough and a poor appetite. Speech evaluation was placed for tomorrow for suspected aspiration. Testing for influenza and COVID-19 were placed. 01/10/25 patient was seen patient was sitting in chair receiving his neb treatment. Patient denied chest pain or shortness for breath. REVIEW OF SYSTEMS CONSTITUTIONAL: Denies fevers, chills, or night sweats. No unintentional weight loss reported., Throat irritation NEUROLOGICAL: Denies headache, amaurosis fugax, motor weakness, sensory deficit, vertigo/spinning sensation, gait abnormalities, or tremors. CARDIOVASCULAR: Denies any exertional angina, dyspnea on exertion, orthopnea, paroxysmal nocturnal dyspnea, palpitations, life-threatening arrhythmias, claudication. PULMONARY: Denies any shortness of breath, hemoptysis, pleuritic chest pain. Patient has cough with clear sputum GASTROINTESTINAL: Denies any type of dysphagia to either liquids or solids. Denies nausea, vomiting, pyrosis, early satiety, abdominal pain, diarrhea, constipation, or changes in stool consistency or caliber. GENITOURINARY: Denies frequency, urgency, nocturia, hematuria or incontinence. Andres in place PHYSICAL EXAM GENERAL APPEARANCE: Patient is alert, oriented, and comfortable lying down and sitting. NECK: Supple. No JVD. CHEST: Normal chest expansion. Telemetry in place. LUNGS: Absence of any rales, rhonchi or any wheezing. Chest tube in place. CARDIOVASCULAR: Regular. S1 and S2 normal. No appreciable rubs, murmurs or gallops. ABDOMEN: Soft, nontender, and nondistended. There is no rebound, voluntary guarding, or rigidity. : Deferred. No Andres. EXTREMITIES: LLE pulses present per Doppler, left toes and foot covered in dressing. Vital Signs (last 8hr) Date Time Temp Pulse Resp B/P (MAP) Pulse Ox O2 Delivery O2 Flow Rate FiO2 01/10/25 11:09 78 24 01/10/25 08:00 98.2 88 18 140/78 98 Nasal Cannula 2.0 01/10/25 07:08 85 20 N/Cannula Low lpm 2.0 28 01/10/25 07:08 85 22 LABS: Laboratory: Test 01/10/25 04:09 01/09/25 09:05 Range/Units White Blood Count 7.5 # 4.8-10.8 K/uL Red Blood Count 4.30 L 4.50-6.20 MIL/uL Hemoglobin 11.2 L 14.0-18.0 g/dL Hematocrit 34.7 L 42-54 % Mean Corpuscular Volume 80.7 79-99 fL Mean Corpuscular Hemoglobin 26.0 L 27.0-33.0 pg Mean Corpuscular Hemoglobin Concent 32.3 32.0-36.0 g/dL Red Cell Distribution Width 26.8 H 11.0-15.5 % Platelet Count 468 #H 130-400 K/uL Mean Platelet Volume 11.4 H 7.5-10.5 fL Immature Granulocyte % (Auto) 0.5 0-1 % Neutrophils (%) (Auto) 87.6 H 40.0-77.0 % Lymphocytes (%) (Auto) 9.3 L 21.0-51.0 % Monocytes (%) (Auto) 2.5 L 3.0-13.0 % Eosinophils (%) (Auto) 0.0 0.0-8.0 % Basophils (%) (Auto) 0.1 0.0-5.0 % Neutrophils # (Auto) 6.6 1.8-7.7 K/uL Lymphocytes # (Auto) 0.7 L 1.0-4.8 K/uL Monocytes # (Auto) 0.2 0.1-1.0 K/uL Eosinophils # (Auto) 0.00 0.00-0.70 K/uL Basophils # (Auto) 0.01 0.00-0.20 K/uL Absolute Immature Granulocyte (auto 0.04 0-1 K/uL Nucleated Red Blood Cells 0.0 0.0-0.19 % Sodium Level 136 136-145 mmol/L Potassium Level 3.0 *L 3.5-5.1 mmol/L Chloride Level 97 L 101-111 mmol/L Carbon Dioxide Level 20 L 21-32 mmol/L Blood Urea Nitrogen 98 *H 7-18 mg/dL Creatinine 7.1 H 0.5-1.3 mg/dL Glomerular Filtration Rate Calc 8 >90 mL/min Random Glucose 160 #H 70-105 mg/dL Total Calcium 8.6 8.5-10.1 mg/dL Phosphorus Level 7.6 H 2.5-4.9 mg/dL Magnesium Level 2.40 1.80-2.40 mg/dL Total Bilirubin 0.5 0.2-1.0 mg/dL Aspartate Amino Transf (AST/SGOT) 35 10-37 U/L Alanine Aminotransferase (ALT/SGPT) 46 # 12-78 U/L Alkaline Phosphatase 112 50-136 U/L Total Protein 7.3 6.0-8.3 g/dL Albumin 1.9 L 3.5-5.0 g/dL Procalcitonin 0.86 H 0.05-0.5 ng/mL Influenza Type A Antigen Negative For Type A NEGATIVE Influenza Type B Antigen Negative For Type B NEGATIVE SARS-CoV-2 Antigen (Rapid) PRESUMPTIVE NEGATIVE NEGATIVE Current Medications Medications (Trade) Dose Ordered Sig/Mila Route PRN Reason Start Time Stop Time Status Last Admin Dose Admin Acetaminophen (TYLenol 325MG TAB) 650 mg Q4H PRN PO Temp >38.3C(AFTER EXTUBATION) 12/28/24 14:00 01/27/25 13:59 Acetaminophen (TYLenol 325MG TAB) 650 mg Q6H PRN PO MILD PAIN (1-3) 12/24/24 01:30 12/28/24 13:57 DC 12/27/24 23:45 650 MG Acetaminophen (TYLenol 325MG TAB) 650 mg Q6H PRN PO TEMPERATURE GREATER THAN 101.5 12/24/24 03:00 12/28/24 14:10 DC Acetaminophen (TYLenol 325MG TAB) 650 mg Q6H PRN PO MILD PAIN (1-3) 12/28/24 14:00 01/27/25 13:59 01/05/25 20:03 650 MG Acetaminophen (TYLenol 650MG SUPPOSITORY) 650 mg Q4H PRN RC Temp >38.3C WHILE INTUBATED 12/28/24 14:00 01/07/25 19:35 DC Acetaminophen (acetaMINOPHEN) 1,000 mg Q6H6 IV 12/28/24 18:00 12/29/24 17:59 DC 12/29/24 17:27 1,000 MG Acetaminophen (acetaMINOPHEN) 1,000 mg Q6H6 IVPB 12/30/24 00:00 12/31/24 20:14 DC 12/30/24 18:16 1,000 MG Albumin Human 250 ml @ 0 mls/hr AD PRN IV IF HEMODYNAMICALLY UNSTABLE 12/28/24 14:00 12/29/24 09:28 DC 12/29/24 09:28 250 MLS/HR Albuterol (DUOneb) 1 UDVIAL [id number] IH 01/01/25 18:00 01/01/25 15:25 DC Albuterol Sulfate (Proventil 0.083% 2.5mg/3ml) 2.5 mg ONCE STAT IH 12/30/24 10:22 12/30/24 10:32 DC 12/30/24 10:43 2.5 MG Aminocaproic Acid 18536 mg/Sodium Chloride 310 ml @ 25 mls/hr AD IV 12/28/24 14:00 12/28/24 14:14 DC Aminocaproic Acid 11319 mg/Sodium Chloride 480 ml @ 0 mls/hr AD PRN IV BLEEDING CONTROL 12/27/24 11:00 01/07/25 19:35 DC Amiodarone HCl (pacERONE 200MG) 200 mg DAILY PO 01/05/25 09:00 02/04/25 08:59 01/10/25 10:00 200 MG Amiodarone HCl 150 mg/Dextrose 103 ml @ 618 mls/hr ONCE IV 01/04/25 06:30 01/04/25 06:21 DC Amiodarone HCl 360 mg/Dextrose 207.2 ml @ 33.3 mls/hr AD IV 01/04/25 06:30 01/04/25 06:21 DC Amiodarone HCl 540 mg/Dextrose 310.8 ml @ 16.7 mls/hr [id number] IV 01/04/25 06:30 01/09/25 09:26 DC 01/04/25 13:01 16.7 MLS/HR Apixaban (EliquIS) 5 mg HS PO 01/07/25 21:00 01/07/25 19:35 DC Argatroban 250 mg/ Sodium Chloride 250 ml @ 0 mls/hr PROTOCOL IV 12/31/24 16:30 01/07/25 19:30 DC 01/07/25 16:32 4.17 MLS/HR Aspirin (Aspirin 81mg Ec Tab) 81 mg DAILY PO 12/24/24 09:00 01/23/25 08:59 01/10/25 10:00 81 MG Atorvastatin Calcium (LIPItor 40MG) 40 mg HS PO 12/24/24 21:00 01/01/25 11:16 DC 12/31/24 20:44 40 MG Atorvastatin Calcium (LIPItor 40MG) 40 mg HS PO 01/07/25 21:00 02/06/25 20:59 01/09/25 21:07 40 MG Benzocaine (Cepacol Sore Throat Lozenge) 1 each Q4H PRN MM SORE THROAT 01/03/25 13:30 02/02/25 13:29 01/06/25 11:16 1 EACH Bisacodyl (DulcoLAX) 10 mg DAILY PRN RC CONSTIPATION - MOM INEFFECTIVE 12/29/24 14:00 01/28/25 13:59 12/30/24 11:05 10 MG Calcium Gluconate 1 gm/Sodium Chloride 60 ml @ 200 mls/hr AD PRN IV HYPOCALCEMIA 12/28/24 14:00 01/27/25 13:59 01/01/25 01:52 200 MLS/HR Cefazolin Sodium (ANCEF 1 gm vial) 2 gm ONCALL IVP 12/26/24 16:30 12/26/24 16:28 DC Cefazolin Sodium (Ancef) 2 gm ONCALL PRN IVP SURGERY 12/26/24 16:30 12/28/24 13:57 DC Cefazolin Sodium (Ancef) 2 gm Q8H IVPB 12/28/24 19:00 12/29/24 11:01 DC 12/29/24 11:04 2 GM Clopidogrel Bisulfate (plaVIX 75MG) 75 mg DAILY PO 01/08/25 09:00 02/07/25 08:59 01/10/25 10:01 75 MG Dexamethasone (DeCADron 4 mg TAB) 6 mg DAILY PO 01/09/25 09:00 01/09/25 08:06 DC Dexamethasone (DeCADron 4 mg TAB) 10 mg BID PO 01/09/25 09:00 02/08/25 08:59 01/10/25 09:59 10 MG Dexmedetomidine/ Sodium Chloride (PRECEdex 400MCG/ 100ML-NS) 400 mcg PROTOCOL IV 12/28/24 14:00 12/29/24 13:59 DC 12/29/24 12:16 400 MCG Dexmedetomidine/ Sodium Chloride (PRECEdex 400MCG/ 100ML-NS) 400 mcg PROTOCOL IV 12/29/24 18:00 01/28/25 17:59 12/31/24 06:05 400 MCG Dextrose (D50w) 50 ml AD PRN IV HYPOGLYCEMIA PROTOCOL 12/28/24 14:00 01/27/25 13:59 Dextrose (D50w) 50 ml ONCE STAT IV 12/30/24 11:36 12/30/24 11:39 DC 12/30/24 11:45 50 ML Dextrose/Sodium Chloride 1,000 ml @ 50 mls/hr Q20H IV 12/30/24 11:30 01/01/25 16:17 DC 01/01/25 02:09 50 MLS/HR Dobutamine HCl/ Dextrose 250 ml @ 0 mls/hr PROTOCOL IV 12/29/24 14:00 01/08/25 15:43 DC 01/05/25 08:48 4.1 MLS/HR Docusate Sodium (COLace 100MG CAP) 100 mg BID PO 12/28/24 21:00 12/29/24 08:01 DC 12/28/24 20:53 100 MG Docusate Sodium (COLace LIQUID 100MG/10ML) 100 mg BID PO 12/29/24 08:00 01/28/25 07:59 01/10/25 09:59 100 MG Enoxaparin Sodium (Lovenox) 30 mg DAILY SQ 12/31/24 09:00 12/31/24 16:12 DC Enoxaparin Sodium (Lovenox) 30 mg DAILY SQ 01/08/25 09:00 01/07/25 20:03 DC Epinephrine HCl 10 mg/Sodium Chloride 250 ml @ 0 mls/hr AD PRN IV TITRATE 12/27/24 11:00 01/26/25 10:59 12/30/24 04:29 0 MLS/HR Epinephrine HCl 10 mg/Sodium Chloride 250 ml @ 0 mls/hr AD PRN IV POST-OP CARDIOVASCULAR ORDERS 12/28/24 14:00 12/28/24 14:14 DC Famotidine (Pepcid 20mg Vial) 20 mg BID IV 12/28/24 21:00 12/31/24 20:20 DC 12/31/24 08:51 20 MG Famotidine (Pepcid 20mg Vial) 20 mg Q48H IV 01/02/25 09:00 01/02/25 04:51 DC Famotidine (Pepcid 20mg Tab) 20 mg DAILY PO 12/24/24 09:00 12/28/24 13:54 DC 12/26/24 10:19 20 MG Furosemide (LASix 20MG TAB) 20 mg Q12H PO 12/30/24 09:00 12/30/24 08:34 DC Furosemide (LASix 20MG VIAL) 20 mg Q12H IV 12/29/24 09:00 12/30/24 08:34 DC 12/29/24 09:20 20 MG Furosemide (LASix 40MG TAB) 40 mg BID@09,17 PO 01/10/25 17:00 02/09/25 16:59 Furosemide (LASix 40MG VIAL) 40 mg Q12H IV 01/08/25 20:00 01/10/25 09:57 DC 01/09/25 21:05 40 MG Furosemide 100 mg/ Sodium Chloride 100 ml @ 0 mls/hr PROTOCOL IV 12/29/24 14:30 01/08/25 13:45 DC 01/07/25 08:41 0 MLS/HR Glucagon (Glucagon 1mg Kit) 1 mg AD PRN IM HYPOGLYCEMIA PROTOCOL 12/28/24 14:00 01/27/25 13:59 Guaifenesin (MUCinex 600 MG TABLET.ER) 600 mg BID PRN PO COUGH 01/08/25 09:30 02/07/25 09:29 Guaifenesin/ Dextromethorphan (RobiTUSSin DM 200/20MG 10ML) 10 ml Q4H PRN PO COUGH 01/03/25 16:30 01/08/25 09:29 DC 01/07/25 08:25 10 ML Heparin Sodium (Porcine) (HEParin 5,000 UNIT VIAL) *calculation based on ACTUAL B... AD PRN IV HEPARIN PROTOCOL 12/24/24 02:30 12/28/24 13:54 DC 12/24/24 17:32 5,000 UNIT Heparin Sodium (Porcine) (HEParin 5,000 UNIT VIAL) 5,000 unit BID SQ 01/08/25 09:00 02/07/25 08:59 01/10/25 09:58 5,000 UNIT Heparin Sodium/ Dextrose 250 ml @ 0 mls/hr Q6H IV 12/24/24 02:30 12/28/24 13:54 DC 12/27/24 17:04 11.3 MLS/HR Hydralazine HCl (APRESOLine 20MG INJ) 10 mg Q6H PRN IV For:SBP above 160;DBP above 90 12/24/24 03:00 12/28/24 13:54 DC Insulin Human Regular (humuLIN R 100 UNIT/ML 3ML) 10 unit ONCE STAT IV 12/30/24 11:42 12/30/24 11:45 DC 12/30/24 12:01 10 UNIT Insulin Human Regular (humuLIN R 100 UNIT/ML 3ML) 10 unit ONCE STAT SQ 12/30/24 11:36 12/30/24 11:43 DC Insulin Human Regular 100 unit/ Sodium Chloride 100 ml @ 0 mls/hr AD IV 12/28/24 14:00 12/29/24 17:55 DC 12/28/24 17:09 5 MLS/HR Ipratropium [place] (AtrovENT UD) 0.5 mg [id number] IH 12/30/24 12:00 01/29/25 11:59 01/10/25 11:08 0.5 MG Lactulose (Constulose 20gm/ 30ml Udcup) 20 gm BID PRN PO CONSTIPATION 12/24/24 03:00 12/28/24 13:54 DC 12/26/24 21:30 20 GM Lactulose (Constulose 20gm/ 30ml Udcup) 20 gm BID PRN PO CONSTIPATION 12/28/24 14:00 01/27/25 13:59 12/30/24 07:50 20 GM Lidocaine HCl/ Dextrose 250 ml @ 0 mls/hr AD PRN IV TITRATE 12/28/24 22:30 12/29/24 16:00 DC 12/29/24 06:53 15 MLS/HR Magnesium Hydroxide (Milk Of Magnesium 30ml) 30 ml DAILY PRN PO CONSTIPATION 12/28/24 14:00 01/27/25 13:59 12/30/24 10:18 30 ML Magnesium Sulfate 50 ml @ 12.5 mls/hr AD PRN IV MAG LEVEL LESS THAN 2.0 12/28/24 14:00 01/27/25 13:59 12/28/24 18:42 12.5 MLS/HR Magnesium Sulfate 50 ml @ 0 mls/hr PROTOCOL PRN IV MAGNESIUM PROTOCOL 12/26/24 15:00 12/28/24 14:10 DC Metolazone (zarOXOlyn) 5 mg ONCE PO 12/31/24 12:00 12/31/24 20:18 DC 12/31/24 12:01 5 MG Metolazone (zarOXOlyn) 5 mg ONCE PO 01/01/25 16:30 01/02/25 16:29 DC 01/01/25 16:53 5 MG Metoprolol Tartrate (loprESSOR) 12.5 mg BID PO 12/30/24 09:00 01/04/25 08:51 DC 01/03/25 20:09 12.5 MG Metoprolol Tartrate (loprESSOR) 25 mg BID PO 12/25/24 21:00 12/28/24 13:54 DC 12/28/24 09:28 25 MG Metoprolol Tartrate (loprESSOR) 25 mg TID PO 01/04/25 09:00 01/06/25 13:08 DC 01/06/25 09:27 25 MG Metoprolol Tartrate (loprESSOR) 50 mg BID PO 01/06/25 21:00 02/05/25 20:59 01/10/25 10:00 50 MG Morphine Sulfate (morPHINE 2MG SYG) 0.5 mg Q2H PRN IV MODERATE PAIN (4-6) 12/28/24 14:00 12/29/24 13:59 DC Morphine Sulfate (morPHINE 2MG SYG) 1 mg Q2H PRN IV SEVERE PAIN (7-10) 12/28/24 14:00 12/29/24 13:59 DC 12/28/24 17:05 1 MG Morphine Sulfate (morPHINE 2MG SYG) 2 mg Q4H PRN IVP SEVERE PAIN (7-10) 12/24/24 03:00 12/28/24 13:54 DC 12/26/24 02:43 2 MG Nitroglycerin (Nitroglycerin 1gm Oint) 0.5 inch Q8H5 TD 12/24/24 01:30 12/28/24 13:54 DC 12/27/24 12:57 0.5 INCH Nitroglycerin (Nitroglycerin 1gm Oint) 1 inch Q8H TD 01/04/25 15:00 02/03/25 14:59 01/09/25 23:05 1 INCH Nitroglycerin/ Dextrose 0 ml @ 0 mls/hr AD IV 12/28/24 14:00 12/31/24 14:00 DC Nitroglycerin/ Dextrose 0 ml @ 0 mls/hr AD PRN IV TITRATE 01/01/25 06:30 01/31/25 06:29 01/07/25 01:12 0 MLS/HR Norepinephrine Bitartrate 250 ml @ 0 mls/hr AD PRN IV TITRATE 12/27/24 11:00 01/26/25 10:59 01/04/25 06:14 0 MLS/HR Norepinephrine Bitartrate 8 mg/ Dextrose 250 ml @ 0 mls/hr AD PRN IV POST-OP CARDIOVASCULAR ORDERS 12/28/24 14:00 12/28/24 14:14 DC Nystatin (NYSTatin 023518 UNIT/ML 5ML UDCUP) 10 ml TID PO 01/07/25 21:00 02/06/25 20:59 01/09/25 21:07 10 ML Nystatin (NystOP 15 GM POWDER) APPLY TO PERINEAL AREA... BID TP 01/08/25 21:00 02/07/25 20:59 01/10/25 10:15 1 APPL Ondansetron HCl (zoFRAN 4MG INJ) 4 mg Q6H PRN IV NAUSEA/VOMITING 12/24/24 03:00 12/28/24 13:54 DC Ondansetron HCl (zoFRAN 4MG INJ) 4 mg Q6H PRN IV NAUSEA/VOMITING 12/28/24 14:00 01/27/25 13:59 12/30/24 11:01 4 MG Pantoprazole Sodium (PROTonix 40MG INJ) 40 mg BID IVP 01/05/25 09:00 02/04/25 08:59 01/10/25 09:57 40 MG Pantoprazole Sodium (PROTonix 40MG INJ) 40 mg Q12H IVP 01/02/25 05:00 01/05/25 04:04 DC 01/04/25 16:00 40 MG Phenol (Sore Throat [place]) 1 SPRAY Q4H PRN PO SORE THROAT 01/06/25 10:30 01/09/25 08:15 DC 01/06/25 16:37 1 SPRY Piperacillin Sod/ Tazobactam Sod (Zosyn 3.375gm+NS 50ml) 3.375 gm Q12H IV 12/30/24 15:30 01/05/25 04:05 DC 01/04/25 14:38 3.375 GM Piperacillin Sod/ Tazobactam Sod (Zosyn 3.375gm+NS 50ml) 3.375 gm Q12H IV 01/05/25 09:00 01/09/25 08:59 DC 01/08/25 20:35 3.375 GM Potassium Phosphate 250 ml @ 42 mls/hr AD PRN IV LOW PHOS LEVEL 12/28/24 14:00 01/27/25 13:59 12/29/24 06:12 42 MLS/HR Potassium Chloride 100 ml @ 100 mls/hr AD PRN IV POTASSIUM PROTOCOL 12/26/24 15:00 12/28/24 13:54 DC Potassium Chloride 100 ml @ 100 mls/hr AD PRN IV HYPOKALEMIA 12/28/24 14:00 01/27/25 13:59 01/06/25 20:02 100 MLS/HR Potassium Chloride 100 ml @ 100 mls/hr AD PRN IV POTASSIUM PROTOCOL 01/08/25 08:30 02/07/25 08:29 Potassium Chloride (K-Dur/Klor-Con 20meq) 20 meq AD PRN PO POTASSIUM PROTOCOL 12/26/24 15:00 12/28/24 13:54 DC 12/26/24 18:27 20 MEQ Potassium Chloride (KCl 10% Elixir 20meq/15ml) 20 meq AD PRN PO POTASSIUM PROTOCOL 12/26/24 15:00 12/28/24 13:54 DC Propofol 100 ml @ 0 mls/hr AD PRN IV SEDATION 12/28/24 14:00 01/01/25 13:59 DC Sodium Polystyrene Sulfonate (kayEXALate 15 GM/60 ML) 30 gm ONCE STAT PO 12/30/24 11:36 12/30/24 11:39 DC 12/30/24 11:45 30 GM Sodium Bicarbonate (Sodium Bicarb 50meq 50ml Vial) 50 meq AD PRN IV OTHER[SEE DOSING INSTRUCTIONS] 12/28/24 14:00 12/31/24 14:00 DC 12/30/24 12:45 100 MEQ Sodium Chloride 500 ml @ 0 mls/hr AD IV 12/28/24 14:00 01/27/25 13:59 Sodium Chloride 1,000 ml @ 10 mls/hr ONCE IV 12/28/24 14:00 12/29/24 13:59 DC 12/28/24 17:06 10 MLS/HR Sodium Chloride (NS Flush 10ml) 10 ml Q8H PRN IVP IV LINE FLUSH 12/28/24 14:00 01/27/25 13:59 Sodium Chloride (Sodium Chloride 3% Inh) 4 ML [id number] IH 01/04/25 12:00 02/03/25 11:59 01/10/25 11:08 4 ML Tramadol HCl (UltRAM) 25 mg Q6H PRN PO MODERATE PAIN (4-6) 12/28/24 14:00 12/29/24 13:56 DC 12/29/24 11:05 25 MG Tramadol HCl (UltRAM) 50 mg Q6H PRN PO SEVERE PAIN (7-10) 12/28/24 14:00 12/29/24 13:56 DC Vasopressin 20 units/Sodium Chloride 100 ml @ 0 mls/hr PROTOCOL IV 12/30/24 15:30 01/29/25 15:29 12/31/24 10:40 6 MLS/HR DIAGNOSTICS / RADIOLOGY: [ ] ASSESSMENT: Multi-vessel coronary artery disease status post CABG 12/28/2024 Non-STEMI. 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 Hypertension. Anemia. ERICK possibly due to ATN New onset atrial fibrillation, not POA PLAN: ACS NSTEMI due to Multi vessel CAD, s/p CABG Day 10 * Continue aspirin, atorvastatin * Argatroban drip is stopped and patient is started on clopidogrel by Cardiology * Encouraged to use IS and to clear the secretions and use p.r.n. benzocaine spray for throat irritation * Monitor chest tube output * Strict I/O and daily weights Leukocytosis post CABG on Day 12 * [place] [id number] today * Ordered influenza and COVID-19 testing * Ordered speech evaluation for suspected aspiration pneumonia * We will follow up with the labs and continue to monitor HFrEF LV ejection fraction 25-30% by echo on 01/01/2025 * Patient LVEF is 25-30% by echocardiography, down from 50-55% on 12/27/24 * Lasix drip is weaned off and patient is started on Lasix 40 mg IV Q12H by Nephrology * Resume GDMT for heart failure when weaned from pressors and more stable * Strict I&O and daily weights 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, S/P LLE femoral thrombectomy * Patient has demarcating necrosis of the left toes and midfoot * Patient underwent left lower extremity femoral thrombectomy on 01/01, after finding monophasic waveforms be on popliteal artery by arterial Doppler * Continue atorvastatin and aspirin * Continue nitroglycerin paste as per loom winder tender * can ambulate with the use of a CAM walking boot with physical therapy with a walker as per podiatry consult * Monitor leg perfusion, pulses, swelling, and discoloration Anemia, post CABG * Patient received 4 units of packed RBCs * Iron panel showed Iron 20, % Sat 5.5, TIBC 360 indicating Iron deficiency, r eceived 2 doses of IV Venofer * Monitor CBC daily in the a.m. daily * Monitor for signs of bleeding Acute on chronic renal dysfunction * Patient urine output is currently 2 L * Creatinine Improved from 7.9-7.4 today * Monitor CBC and electrolytes in the a.m. daily * Avoid nephrotoxic agents New onset atrial fibrillation, not POA Amiodarone 200 mg p.o. as per Cardiology recommendation Currently in sinus rhythm GI prophylaxis with Protonix 40 mg IV Continue DVT prophylaxis with heparin 5000 SQ b.i.d. ATTESTATION BY PHYSICIAN I have seen and examined the patient. I reviewed the documentation, medical decision making, and treatment plan as noted by the mid-level provider above. I agree with the findings and plan of care. Joycelyn Rios MD, ELIZABETH NP Jan 10, 2025 12:07
--- NOTE | 2025-01-10 12:15 | NUR ---
[facility] Follow-up: Patient assessed by wound healing team. S/P sx, patient up in chair at this time, unable to assess buttocks. Assessment and recommendations provided to primary nurse. Education provided. Addendum: 01/10/25 at 1433 by ANNIE FINN RN RN/ Amended: Links added.
--- NOTE | 2025-01-10 17:50 | NUR ---
BEDSIDE SWALLOW RE-EVALUATION COMPLETED. No s/s of aspiration; however patient reports odynophagia with solids and would like to continue on pureed solids and crushed meds at this time. Advance liquids to thin liquids as tolerated. COMPENSATORY STRATEGIES: 1. sit upright during oral intake 2. small bites/sips 3. slow oral intake DTP OPERATOR reviewed results and recommendations with patient and nurse Shadi. DTP OPERATOR educated patient on risks and consequences of aspiration. Speech therapy will follow up. All questions answered. Addendum: 01/10/[address] Amended: Links added.
--- NOTE | 2025-01-10 18:02 | PN ---
[facility] PROGRESS NOTE Date Patient Seen: Jan 10, 2025 Time of Visit: 18:00 Interval History: No acute events overnight. Renal function is not improved, currently not on hemodialysis urine output overnight 600 mL, hemodynamically stable, with no c hest pain, palpitations, dyspnea or any other anginal equivalents Physical Examination: GENERAL: [No acute distress.] NECK: R CVC LUNGS: [ diminished inspiratory effort. No wheezes, or rhonchi.] HEART: [Normal rate and rhythm. Normal S1 and S2 without murmurs, gallop or rub.] VASC: [Peripheral pulses +1 bilaterally. blistering to distal left foot with ecchymoses to distal digits] ABD: soft, nontender SKIN: [ecchymoses, blistering to LLE distal digits. sensation and motor intact NEURO: [Awake, alert , moves all extremities.] Laboratory: [ ] Hematology Labs: Test 01/10/25 04:09 Range/Units White Blood Count 7.5 # 4.8-10.8 K/uL Red Blood Count 4.30 L 4.50-6.20 MIL/uL Hemoglobin 11.2 L 14.0-18.0 g/dL Hematocrit 34.7 L 42-54 % Mean Corpuscular Volume 80.7 79-99 fL Mean Corpuscular Hemoglobin 26.0 L 27.0-33.0 pg Mean Corpuscular Hemoglobin Concent 32.3 32.0-36.0 g/dL Red Cell Distribution Width 26.8 H 11.0-15.5 % Platelet Count 468 #H 130-400 K/uL Mean Platelet Volume 11.4 H 7.5-10.5 fL Immature Granulocyte % (Auto) 0.5 0-1 % Neutrophils (%) (Auto) 87.6 H 40.0-77.0 % Lymphocytes (%) (Auto) 9.3 L 21.0-51.0 % Monocytes (%) (Auto) 2.5 L 3.0-13.0 % Eosinophils (%) (Auto) 0.0 0.0-8.0 % Basophils (%) (Auto) 0.1 0.0-5.0 % Neutrophils # (Auto) 6.6 1.8-7.7 K/uL Lymphocytes # (Auto) 0.7 L 1.0-4.8 K/uL Monocytes # (Auto) 0.2 0.1-1.0 K/uL Eosinophils # (Auto) 0.00 0.00-0.70 K/uL Basophils # (Auto) 0.01 0.00-0.20 K/uL Absolute Immature Granulocyte (auto 0.04 0-1 K/uL Nucleated Red Blood Cells 0.0 0.0-0.19 % Chemistry Labs: Test 01/10/25 04:09 Range/Units Sodium Level 136 136-145 mmol/L Potassium Level 3.0 *L 3.5-5.1 mmol/L Chloride Level 97 L 101-111 mmol/L Carbon Dioxide Level 20 L 21-32 mmol/L Blood Urea Nitrogen 98 *H 7-18 mg/dL Creatinine 7.1 H 0.5-1.3 mg/dL Glomerular Filtration Rate Calc 8 >90 mL/min Random Glucose 160 #H 70-105 mg/dL Total Calcium 8.6 8.5-10.1 mg/dL Phosphorus Level 7.6 H 2.5-4.9 mg/dL Magnesium Level 2.40 1.80-2.40 mg/dL Total Bilirubin 0.5 0.2-1.0 mg/dL Aspartate Amino Transf (AST/SGOT) 35 10-37 U/L Alanine Aminotransferase (ALT/SGPT) 46 # 12-78 U/L Alkaline Phosphatase 112 50-136 U/L Total Protein 7.3 6.0-8.3 g/dL Albumin 1.9 L 3.5-5.0 g/dL Procalcitonin 0.86 H 0.05-0.5 ng/mL Diagnostics / Radiology: [Copy/Paste Echos/Imaging Report here] Impression and Plan: ACS-NSTEMI MVCAD s/p CABG with VG-RCA, VG-OM, TORRES-LAD and VG-distal LAD LLE ALI while IABP in place, status post femoral thrombectomy, placed on argatroban. New onset atrial fibrillation with rapid ventricular response, converted. Hypertension ICMP LVEF 25-30% Acute renal failure without dialysis #ACS-NSTEMI on presentation Patient presented as a transfer for admission due to NSTEMI Presenting hemoglobin was 7.1 g, underwent EGD was negative for active bleeding or ulcers Coronary angiogram revealing multivessel CAD CV surgery was consulted for CABG s/p 4 v CABG and insertion of aortic balloon pump with VG-RCA, VG-OM, TORRES-LAD and VG-distal LAD Removal of IABP 12/31 Defer the use of any for intoxication due to worsening renal function Continue heparin infusion per protocol Continue Sohnwg09 mg daily, ASA 81 mg daily, Lopressor 50 mg every12 hours and atorvastatin 40 mg q.h.s. Rest of care by CV surgery #HFmrEF ICM-LVEF 25-30%- NYHA II Euvolemic and compensated on exam 2D echocardiogram (01/01/2025) LVEF 25-30%, hypokinetic anterior wall and apex. Strict I's and O's and daily weights. Urine output in the past 24 hours 2 L, with a net-1.5 L Continue Lasix 40 mg IV every 12 hours GDMT: Continue Lopressor 50 mg every12 hours Unable to optimize GDM T any further due to worsening renal function (nephrology is following) # paroxysmal atrial fibrillation Documented episode atrial fibrillation with RVR on 01/04/2025 Initially cardioverted with amiodarone bolus and infusion Current review of telemetry sinus rhythm with a heart rate of 80 beats per minute with no events overnight We will continue heparin infusion per protocol, we will recommend Eliquis once deemed safe by CV surgery Continue Lopressor 50 mg every 12 hours, amiodarone 200 mg daily Keep on telemetry, monitor/replace electrolytes as needed ( Mg >2 , K > 4 ) Thank you for this consult cardiology will continue to follow along Kane rivera MD ATTESTATION BY PHYSICIAN I have seen and examined the patient, reviewed the above documentation, participated in medical decision making, made necessary modifications, and agree with the treatment plan as documented by my mid-level provider above. MD IRASEMA Alas JAMES R MD Jan 10, 2025 18:02
--- NOTE | 2025-01-10 18:38 | PN ---
[facility] PROGRESS NOTE Date Patient Seen: Jan 10, 2025 Time of Visit: 18:35 Supervising Physician: Dr Jaramillo Primary Care Physician: Joe Felton D.O. Outpatient Specialists: [ ] Inpatient Consults: CK Mcnair, Radha Swartz, Dr Guzman Attending: Festus Tovar MD PROBLEM LIST: CAD post CABG 12/28/2024 Acute left lower extremity ischemia Left LE Arterial occlusion S/P removal of IABP and thrombectomy LE 12/31/24 Acute on chronic combined heart failure with reduced EF of 25-30%, improving Cardiorenal syndrome Acute renal failure Non-STEMI POA Hypertension Anemia Hypokalemia INTERVAL HISTORY: Patient was seen and examined, all labs and imaging have been reviewed. Patient is sitting comfortably at bedside chair. He is reporting no chest pain or shortness of breath. Patient is off any pressors. Good saturations on room air. Patient's chest x-ray is reviewed which is clear. Patient's potassium is 3.0. Being covered I protocol. Currently working with physical therapy. They have modified a Veronika shoe and had him avoid any type of weight-bearing to the anterior foot. Plan: Continue work with PT/OT Follow podiatry recs Case management working on placement Patient downgraded Follow labs and imaging, telemetry Follow cardiology recs REVIEW OF SYSTEMS: General: No malaise or fever. Neurological: No fainting episodes or seizures. HEENT: No nasal congestion or nasal secretion. Respiratory: No cough, shortness of breath, or wheezing Cardiac: No chest pain or palpitations. midsternal incision line tenderness Gastrointestinal: No vomiting or diarrhea. Genitourinary: No dysuria hematuria. Skin: No rashes or lesions. Hematological: No bruises or bleeding.+ lt foot pain Musculoskeletal: No joint pains or arthralgias. Psychiatric: No depression or panic attacks. PHYSICAL EXAM: GENERAL: Awake alert and oriented x2 HEENT: EOMI, Sclera non icteric, moist mucosa NECK: Supple, no JVD, trachea midline LUNGS: Chest tubes in place, HEART: Regular rate and rhythm. Normal S1 and S2, without murmurs ABD: Abdomen soft, nontender. Bowel sounds present EXT: No clubbing cyanosis or edema NEURO: GCS of 14 no focal weakness. Vital Signs (last 8hr) Date Time Temp Pulse Resp B/P (MAP) Pulse Ox O2 Delivery O2 Flow Rate FiO2 01/10/25 16:30 82 24 93 01/10/25 16:15 79 24 97 01/10/25 16:00 80 25 96 01/10/25 15:45 79 24 97 01/10/25 15:41 80 22 136/83 98 01/10/25 15:30 79 20 96 01/10/25 15:15 83 20 97 01/10/25 15:00 75 20 98 01/10/25 14:45 76 20 97 01/10/25 14:41 77 18 138/97 98 01/10/25 14:30 78 20 97 01/10/25 14:15 75 20 96 01/10/25 14:00 76 20 98 01/10/25 13:45 78 20 97 01/10/25 13:41 79 20 145/97 97 01/10/25 13:30 80 20 96 01/10/25 13:15 83 20 97 01/10/25 13:01 81 20 97 Room Air 01/10/25 13:00 82 20 97 01/10/25 12:46 86 20 97 Room Air 01/10/25 12:41 79 20 138/90 97 Room Air 01/10/25 12:31 91 18 97 Room Air 01/10/25 12:16 78 18 97 Room Air 01/10/25 12:01 75 18 96 Room Air 01/10/25 11:46 79 18 96 Room Air 01/10/25 11:41 78 18 168/101 97 Room Air 01/10/25 11:31 76 18 97 Room Air 01/10/25 11:16 80 18 98 Room Air 01/10/25 11:09 78 24 01/10/25 11:01 79 20 97 Room Air 01/10/25 11:00 79 20 97 Room Air 01/10/25 10:45 79 20 97 Room Air 01/10/25 10:41 80 20 125/75 97 Room Air LABS: Hematology Labs: Test 01/10/25 04:09 Range/Units White Blood Count 7.5 # 4.8-10.8 K/uL Red Blood Count 4.30 L 4.50-6.20 MIL/uL Hemoglobin 11.2 L 14.0-18.0 g/dL Hematocrit 34.7 L 42-54 % Mean Corpuscular Volume 80.7 79-99 fL Mean Corpuscular Hemoglobin 26.0 L 27.0-33.0 pg Mean Corpuscular Hemoglobin Concent 32.3 32.0-36.0 g/dL Red Cell Distribution Width 26.8 H 11.0-15.5 % Platelet Count 468 #H 130-400 K/uL Mean Platelet Volume 11.4 H 7.5-10.5 fL Immature Granulocyte % (Auto) 0.5 0-1 % Neutrophils (%) (Auto) 87.6 H 40.0-77.0 % Lymphocytes (%) (Auto) 9.3 L 21.0-51.0 % Monocytes (%) (Auto) 2.5 L 3.0-13.0 % Eosinophils (%) (Auto) 0.0 0.0-8.0 % Basophils (%) (Auto) 0.1 0.0-5.0 % Neutrophils # (Auto) 6.6 1.8-7.7 K/uL Lymphocytes # (Auto) 0.7 L 1.0-4.8 K/uL Monocytes # (Auto) 0.2 0.1-1.0 K/uL Eosinophils # (Auto) 0.00 0.00-0.70 K/uL Basophils # (Auto) 0.01 0.00-0.20 K/uL Absolute Immature Granulocyte (auto 0.04 0-1 K/uL Nucleated Red Blood Cells 0.0 0.0-0.19 % Chemistry Labs: Test 01/10/25 04:09 Range/Units Sodium Level 136 136-145 mmol/L Potassium Level 3.0 *L 3.5-5.1 mmol/L Chloride Level 97 L 101-111 mmol/L Carbon Dioxide Level 20 L 21-32 mmol/L Blood Urea Nitrogen 98 *H 7-18 mg/dL Creatinine 7.1 H 0.5-1.3 mg/dL Glomerular Filtration Rate Calc 8 >90 mL/min Random Glucose 160 #H 70-105 mg/dL Total Calcium 8.6 8.5-10.1 mg/dL Phosphorus Level 7.6 H 2.5-4.9 mg/dL Magnesium Level 2.40 1.80-2.40 mg/dL Total Bilirubin 0.5 0.2-1.0 mg/dL Aspartate Amino Transf (AST/SGOT) 35 10-37 U/L Alanine Aminotransferase (ALT/SGPT) 46 # 12-78 U/L Alkaline Phosphatase 112 50-136 U/L Total Protein 7.3 6.0-8.3 g/dL Albumin 1.9 L 3.5-5.0 g/dL Procalcitonin 0.86 H 0.05-0.5 ng/mL DIAGNOSTICS / RADIOLOGY RESULTS: [ ] PLAN NEURO: Minimize central acting medications as possible. Maintain fall precautions, adequate lighting during the day PULMONARY: Supplemental 02 as needed. Maintain aspiration precautions at all times CARDIOVASCULAR: Follow hemodynamics. Vital signs per facility protocol GI & NUTRITION: Continue with nutritional support. Continue stool softeners and laxatives as needed. KIDNEYS & ELECTROLYTES: Strict monitoring of intake, output and overall fluid balance. Avoid nephrotoxic medications to the extent possible. Medications to be dosed according to renal function. Monitor electrolytes and replace as needed ENDOCRINE: Maintain blood glucose between 100-180 at all times. Hypoglycemia protocol in place INFECTIOUS DISEASE: Trend temperature, WBC and procalcitonin level Follow cultures, deescalate antibiotics as soon as possible. Panculture if new onset fever ONCOLOGY/HEMATOLOGY/COAGULATION: Monitor for s/s of bleeding Monitor hemoglobin, coagulation studies as needed SKIN: Pressure ulcer prevention per facility protocol Specialty mattress ORTHO/REHAB: Continue PT/OT Prophylaxis: Continue GI and DVT prophylaxis Code Status: Full Resuscitation Disposition: TBD Other: Total patient care time 39 minutes excluding all procedures. CHEYENNE HENSON Jan 10, 2025 18:38
[2025-01-10 21:12] LABS: NUCLEATED RED BLOOD CELLS 0.0 % (0.0-0.19); PLATELET COUNT (AUTO) 511.0 K/uL (130-400); RED BLOOD CELL COUNT(AUTO) 4.09 MIL/uL (4.50-6.20); RED CELL DISTRIBUTION WIDTH 26.4 % (11.0-15.5); WHITE BLOOD COUNT (AUTO) 8.9 K/uL (4.8-10.8)
[2025-01-10 21:31] LABS: CREATININE 6.9 mg/dL (0.5-1.3); GLOMERULAR FILTR. RATE CALC 9.0 mL/min (>90); GLUCOSE,RANDOM 289.0 mg/dL (70-105); SODIUM SERUM 135.0 mmol/L (136-145)
[2025-01-10 21:48] LABS: UREA NITROGEN, BLOOD 116.0 mg/dL (7-18)
[2025-01-11] VITALS (13 sets, daily range): BP systolic 139–148; BP diastolic 73–99; PULSE 74–87; RESP 16–20; TEMP 97.6–98.2; O2SAT 95–98
[2025-01-11] MEDS: PoTASSium chl 10% ELIXIR 20MEQ 20 MEQ/15 ML UDCUP PO ONE (00:19)
[2025-01-11 04:42] LABS: IMMATURE GRANULOCYTE ABSOLUTE 0.05 K/uL (0-1); NUCLEATED RED BLOOD CELLS 0.0 % (0.0-0.19); PLATELET COUNT (AUTO) 549 K/uL (130-400); RED BLOOD CELL COUNT(AUTO) 4.12 MIL/uL (4.50-6.20); RED CELL DISTRIBUTION WIDTH 26.5 % (11.0-15.5); WHITE BLOOD COUNT (AUTO) 8.8 K/uL (4.8-10.8)
[2025-01-11 05:02] LABS: ASPARTATE AMINOTRANSFERASE 33.0 U/L (10-37); CREATININE 6.6 mg/dL (0.5-1.3); GLOMERULAR FILTR. RATE CALC 9.0 mL/min (>90); GLUCOSE,RANDOM 295.0 mg/dL (70-105); SODIUM SERUM 134.0 mmol/L (136-145); TOTAL PROTEIN, SERUM 7.1 g/dL (6.0-8.3)
[2025-01-11 05:16] LABS: UREA NITROGEN, BLOOD 118.0 mg/dL (7-18)
--- NOTE | 2025-01-11 07:16 | PN ---
SUBJECTIVE: The patient is a very pleasant 54-year-old diabetic male who is seen and followed up for demarcating necrosis through all digits of his left foot, acute renal failure, being evaluated now for aspiration pneumonia. The patient has been upgraded from the ICU. He is pending outpatient placement, being followed by Nephrology. They do not recommend any renal replacement therapy at this point. He currently has a BUN and a creatinine level of 118 and 6.6, hemoglobin A1c of 5.8. He is status post coronary artery bypass grafting x 4 on 12/28/2024, status post removal of intraaortic balloon pump and thrombectomy on 12/31/2024. OBJECTIVE: His examination today shows black necrotic eschars to the entirety of his digits 1, 2, 3, 4, and 5 on the left. Blistering lesions to the dorsal and plantar aspect of his forefoot. Digits are cold to the touch. ASSESSMENT: A 54-year-old male status post thrombectomy, removal of aortic balloon pump after four-vessel coronary artery bypass grafting, renal failure, new onset atrial fibrillation, demarcating necrosis all digits of the left foot in the presence of audible Dopplers to the anterior tibial and posterior tibial on the left, hemorrhagic bullae, dorsal and plantar aspects of the midfoot and forefoot on the left, acute renal failure, being followed for suspicion of aspiration pneumonia. Swallowing study is pending. The patient with negative COVID and influenza exams. PLAN: We will continue to monitor the patient closely for ischemic changes to the digits of the left foot. He is afebrile. His white count is within normal limits. He is currently not receiving any antibiotic therapy. The patient may ambulate with physical therapy with a CAM walking boot on that left side. TID: [id number] RECEIPT: [id number]
--- NOTE | 2025-01-11 09:26 | PN ---
SUBJECTIVE: A 54-year-old male who has had a prolonged hospital course. The patient has a history of coronary artery disease, status post CABG. The patient has had acute renal failure in the hospital. Creatinine continues to slowly improve. Urine output has remained adequate and he is being seen as a followup visit for all of the above. He has a nonhealing wound of the foot, being seen by Podiatry. REVIEW OF SYSTEMS: GENERAL: He is feeling improved. HEENT: No change in vision. No change in hearing. No nasal discharge. No sore throat. CARDIOVASCULAR: No current chest pain or palpitations. PULMONARY: Shortness of breath has improved. GASTROINTESTINAL: The patient is tolerating a diet. MUSCULOSKELETAL: Complains of weakness. PHYSICAL EXAMINATION: VITAL SIGNS: Blood pressure is 142/90, pulse 70s, afebrile. GENERAL: He is a chronically ill male, much older than appearing. HEENT: Head is atraumatic. Pupils are equal, reactive to light. Oropharynx is without exudate. Nares are clear. NECK: There is no JVP. There is no thyromegaly. No masses. CARDIOVASCULAR: Regular. There is no S3 or S4, or gallop. LUNGS: Coarse with equal thoracic movement. ABDOMEN: Soft, nondistended, and nontender. EXTREMITIES: The edema is much improved. NEUROLOGICAL: He is awake. He is alert. LABORATORY DATA: Sodium 134, potassium 3.6, BUN 118, creatinine 6.6. Hemoglobin 10 and hematocrit 33. IMPRESSION: * Acute renal failure. * Coronary artery disease, status post coronary artery bypass graft. * Diabetes mellitus. * Hypertension. PLAN: The patient's renal function continues to slowly improve. The patient's electrolytes have all been aggressively repleted. The patient has been transferred out to a medical floor. We will continue to follow the patient closely. The patient had multiple questions, all of which were answered. TID: [id number] RECEIPT: [id number]
--- NOTE | 2025-01-11 11:10 | NUR ---
[facility] Follow-up: Patient re-assessed by wound healing team. Redness/rash to buttock and scrotum. Assessment and recommendations provided to primary nurse. Education provided. Addendum: 01/11/25 at 1306 by ANNIE FINN RN RN/ Amended: Links added.
--- NOTE | 2025-01-11 12:16 | NUR ---
SPEECH NOTE: FOLLOW UP CLINICAL LAW PROFESSOR coordinated with nurse Hsu. As per nurse, patient tolerating thin liquids with no s/s of aspiration. CLINICAL LAW PROFESSOR will follow up with bedside swallow re-evaluation for possible diet upgrade from pureed solids. If patient, continues to present with odynophagia, patient may want to consider ENT consult as outpatient for further evaluations. All questions answered. Addendum: 01/11/[address] NO[facility]IA LERMA Amended: Links added.
--- NOTE | 2025-01-11 13:04 | PN ---
[facility] PROGRESS NOTE Date of Service: Jan 11, 2025 Time of Service: 12:45 SUBJECTIVE: This is a 54-year-old male [facility]. He underwent left heart catheterization which showed severe multi-vessel coronary artery disease with mid to apical inferior hypokinesis, LVEF 45-50%. He underwent echocardiogram 12/19/2024 which showed an ejection fraction of 55- 60%, mild LVH, normal-sized left atrium, mild mitral valve regurgitation and mild tricuspid valve regurgitation. He was transferred to [facility] for CABG. 12/25 patient remains admitted to the PCU, case discussed with the RN, no acute events overnight, he denied chest pain, shortness shortness for breath, no nausea, no vomiting, no abdominal discomfort. Cardiology input noted and appreciated, patient to continue aspirin 81 mg p.o. daily and atorvastatin 40 mg p.o. daily. Continue metoprolol tartrate 25 mg p.o. b.i.d.. Pending evaluation by CT surgery for consideration for CABG. Discussed with the patient. 12/26 patient remains admitted to the PCU, case discussed with the RN, no acute events overnight, the time of my visit the patient is comfortably in bed, alert oriented x3, eating breakfast, tolerating well, denies nausea, no vomiting, no abdominal discomfort, he denies chest pain, no shortness a breath. Remains on aspirin 81 mg p.o. daily, atorvastatin and metoprolol 25 mg p.o. b.i.d.. Pending evaluation by CT surgery for consideration of CABG. 12/27 patient is seen and examined at bedside, case discussed with the RN, no acute events overnight, currently the patient NPO, scheduled for CABG today by Cardiothoracic surgeon. We will continue to follow. 12/28 patient is seen and examined at bedside, case discussed with the RN, no acute events overnight, currently the patient NPO, scheduled for CABG today by Cardiothoracic surgeon. We will continue to follow. 12/29 patient is seen and examined at bedside, remains admitted to the ICU, postoperative day 1., status post CABG 12/28/2024, patient on insulin drip, nitroglycerin drip, alert oriented x3 following commands, however was mildly agitated earlier this morning, motion with the RN started on Precedex. Patient with chest tube in place. Further recommendations per Cardiothoracic surgeon. 12/30 patient remains admitted to the ICU, case discussed with the RN, patient remains confused, trying to pull his IV lines, remains on Precedex. Throughout the balloon pump in place, just to be breath, remains on epinephrine, Levophed, Lasix drip, dobutamine drip. Creatinine today at 3.0. Nephrology consultation requested, we will follow input and recommendation. Continue to monitor liver enzymes in a.m., follow ammonia level (at the time of my dictation less than 10). Continue to follow critical care input and recommendation. Prognosis remains guarded. 12/31 54-year-old male who [facility] non- [facility]. He underwent left heart catheterization which showed severe multi-vessel coronary artery disease with mid to apical inferior hypokinesis, LVEF 45-50%. He underwent echocardiogram 12/19/2024 which showed an ejection fraction of 55- 60%, mild LVH, normal-sized left atrium, mild mitral valve regurgitation and m ild tricuspid valve regurgitation. He was transferred to [facility] for CABG. Cardiothoracic surgeon consultation requested, patient underwent CABG 12/28/2024. Continue to follow Cardiothoracic input and recommendations. Patient has been mildly confused post procedure, started on Precedex. 01/01 54-year-old male who [facility] non- [facility]I. He underwent left heart catheterization which showed severe multi-vessel coronary artery disease with mid to apical inferior hypokinesis, LVEF 45-50%. He underwent echocardiogram 12/19/2024 which showed an ejection fraction of 55- 60%, mild LVH, normal-sized left atrium, mild mitral valve regurgitation and mild tricuspid valve regurgitation. He was transferred to [facility] for CABG. Cardiothoracic surgeon consultation requested, patient underwent CABG 12/28/2024. At the time of my visit resting comfortably in bed, off Precedex, following commands, status post interval removal of intra-aortic balloon pump yesterday, remains on dobutamine and nitroglycerin drip as well as argatroban. Continue to follow critical Care and Cardiothoracic input and recommendations. 01/02/25: Patient was evaluated at the bedside. Today is postop Day 5 and he is recovering well. Patient underwent thrombectomy in the femoral artery of left lower extremity and removal of intra-aortic balloon pump yesterday. Patient has mottled appearance in the left great toe and dorsalis pedis pulsations are present. His chest tube output was 320 mL over the last 24 hours. His stool was positive for occult blood and a GI consult has been placed. Cardiology advised to continue the current treatment. Patient is weaned off Levophed and is currently on Lasix, dobutamine, nitroglycerin, and argatroban drips. A swallow test will be performed today to evaluate the need for removing NG tube. 01/03/25: Patient was evaluated at the bedside, this is postop day 6 and is recovering well. Patient has mottled appearance in the left great toe extending into all the digits. Dorsalis pedis pulsations were diminished with palpation but detected on Doppler. His chest tube output was 310 mL today. A GI consult was placed for occult blood however no intervention was recommended and advised to continue Protonix 40 mg. Nephrology recommended no renal replacement as alicia ent has good urine output,3 L today and is responding well to diuresis. Patient is continued on Lasix, dobutamine, nitroglycerin, and argatroban drips. NG tube was removed and patient was started on pureed heart healthy diet as tolerated. 01/04/2025: Patient was evaluated at the bedside, this is postop day 7. Patient had an episode of AFib with rapid ventricular response this morning and was cardioverted with amiodarone and continued on drip. Patient's left leg discoloration has improved, but still has diminished pulses only detected by Doppler. His chest tube output is 140 mL. Patient's ERICK has been worsening with creatinine 7.8 today however he has adequate urine output, 3.5 L today. Cardiology recommended to reduce Lasix drip to 2.5 and nephrology advised that patient's creatinine is stabilizing and renal function will improve in the next few days. Patient is still continuing on argatroban, nitro, and dobutamine drips. Otherwise patient has been recovering well tolerating pureed food and only complains of occasional throat pain due to cough. He was encouraged to cough to clear the chest secretions and use p.r.n. benzocaine spray for relief. His chest x-ray shows clearing pleural effusion and pulmonary edema. 01/05/2025: Patient was evaluated at the bedside and this is postop day. Patient has been in sinus rhythm since the AFib episode this morning. IV amiodarone was stopped and transitioned to p.o. 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 Community Health Director recommended applying nitroglycerin paste and and covered it in dressing. Patient's ERICK continues to worsen, creatinine 8.2 today. However he is maintaining a good urine output, 2500 today. He has been weaning of Lasix drip. Patient has been encouraged to use incentive spirometry and cough as tolerated to clear the chest secretions. Chest x-ray showed no evidence of pulmonary venous congestion today. 01/06/2025: Patient was evaluated at the bedside, he was sitting comfortably in his chair. Patient has been in sinus rhythm. Patient continues on argatroban, Lasix, and dobutamine drips. Patient's ERICK seemed to be stabilizing his creati nine is 8.3 compared to 8.2 yesterday. Patient is maintaining good urine output, 2L in the last 24 hours. Patient's left foot was covered in dressing. Dr. Persaud evaluated the patient today and recommended walking boot with dressing if he is cleared by Cardiology for ambulation. His demarcating necrosis of the distal aspects of digits 1, 2, 3, and 4 on the left side seemed to be improving. Dr. Persaud recommended to continue nitroglycerin paste. Patient encouraged to use incentive spirometry and cough and was asked to use benzocaine for relief from throat pain. 01/07/2025 - patient seen at bedside in room 215 , patient is alert awake and oriented. Patient continues to be on argatroban, Lasix drips, his acute kidney injury possibly secondary to ATN secondary to hypotensive episode seems resolving while maintaining good urine output. Patient still complains of cough, pain in the left lower extremity. Patient's phosphorus trended down to 6.8 And anion gap closed down to 12 today. Patient currently hemodynamically stable and we will continue to monitor closely. 01/08/2025 Patient is seen and examined at the bedside. Awake alert and oriented and sitting comfortably in the chair. Argatroban drip is discontinued and patient is started on Heparin for DVT prophylaxis and Plavix 75 mg [for NSTEMI] by cardiology. Vitals blood pressure ranging in 110/80s, pulse rate 80s, respiratory rate in 20s to 30s, SpO2 greater than 95% on room air. Patient had an episode of AFib today. Currently in sinus rhythm. Chest tube and arterial line are discontinued as per CT is recommendations. Urine output 1.8 L. He still complains of productive cough, poor appetite. Labs hemoglobin stable at 10.1, potassium low at 3.1, BUN 93, creatinine improved from 7.9-7.5. Chest x-ray revealed no evidence of airspace consolidation or pulmonary venous congestion. 01/09/25: Patient was seen and evaluated at the bedside. He was awake, alert, and oriented to time place and person. Patient had been in sinus rhythm and had no acute events overnight. His vitals have been stable and only complains of throat pain. His creatinine is improving, 7.4 from 7.5 yesterday. He is maintaining good urine output of 2 [place] [id number] today and is receiving Zosyn. His chest x-ray showed trace left pleural effusion. Still has productive cough and a poor appetite. Speech evaluation was placed for tomorrow for suspected aspiration. Testing for influenza and COVID-19 were placed. 01/10/25 patient was seen patient was sitting in chair receiving his neb treatment. Patient denied chest pain or shortness for breath. 01/11/25: Patient was seen and evaluated at the bedside in room 205. Patient was downgraded to medical floor and is recovering well from his surgery. Improving in his creatinine is at 6.6 from 6.9 yesterday. Is maintaining a good urine output of 1975 mL yesterday. His demarcating necrosis of the left foot is improving with gradually receding necrotic tissue. His bilateral pedal pulses are present with Doppler. We will have speech therapist evaluate with barium swallow for consideration of advancing diet from pureed food. REVIEW OF SYSTEMS CONSTITUTIONAL: Denies fevers, chills, or night sweats. No unintentional weight loss reported., Throat irritation NEUROLOGICAL: Denies headache, amaurosis fugax, motor weakness, sensory deficit, vertigo/spinning sensation, gait abnormalities, or tremors. CARDIOVASCULAR: Denies any exertional angina, dyspnea on exertion, orthopnea, paroxysmal nocturnal dyspnea, palpitations, life-threatening arrhythmias, claudication. PULMONARY: Denies any shortness of breath, hemoptysis, pleuritic chest pain. Patient has cough with clear sputum GASTROINTESTINAL: Denies any type of dysphagia to either liquids or solids. Denies nausea, vomiting, pyrosis, early satiety, abdominal pain, diarrhea, constipation, or changes in stool consistency or caliber. GENITOURINARY: Denies frequency, urgency, nocturia, hematuria or incontinence. Andres in place PHYSICAL EXAM GENERAL APPEARANCE: Patient is alert, oriented, and comfortable lying down and sitting. NECK: Supple. No JVD. CHEST: Normal chest expansion. Telemetry in place. LUNGS: Absence of any rales, rhonchi or any wheezing. Chest tube in place. CARDIOVASCULAR: Regular. S1 and S2 normal. No appreciable rubs, murmurs or gallops. ABDOMEN: Soft, nontender, and nondistended. There is no rebound, voluntary guarding, or rigidity. : Deferred. No Andres. EXTREMITIES: LLE pulses present per Doppler, left toes and foot covered in dressing. Vital Signs (last 8hr) Date Time Temp Pulse Resp B/P (MAP) Pulse Ox O2 Delivery O2 Flow Rate FiO2 01/11/25 12:00 97.5 83 16 139/96 99 Room Air 01/11/25 11:07 80 20 N/A Room Air 21 01/11/25 11:07 80 20 01/11/25 08:00 97 Nasal Cannula* 2 28 01/11/25 08:00 97.5 79 16 142/90 97 Room Air 01/11/25 07:02 77 20 N/A Room Air 21 01/11/25 06:59 77 20 LABS: Laboratory: Test 01/11/25 04:16 01/10/25 21:06 01/10/25 04:09 Range/Units White Blood Count 8.8 4.8-10.8 K/uL Red Blood Count 4.12 L 4.50-6.20 MIL/uL Hemoglobin 10.7 L 14.0-18.0 g/dL Hematocrit 33.7 L 42-54 % Mean Corpuscular Volume 81.8 79-99 fL Mean Corpuscular Hemoglobin 26.0 L 27.0-33.0 pg Mean Corpuscular Hemoglobin Concent 31.8 L 32.0-36.0 g/dL Red Cell Distribution Width 26.5 H 11.0-15.5 % Platelet Count 549 H 130-400 K/uL Mean Platelet Volume 11.8 H 7.5-10.5 fL Immature Granulocyte % (Auto) 0.6 0-1 % Neutrophils (%) (Auto) 88.1 H 40.0-77.0 % Lymphocytes (%) (Auto) 4.9 L 21.0-51.0 % Monocytes (%) (Auto) 6.3 3.0-13.0 % Eosinophils (%) (Auto) 0.0 0.0-8.0 % Basophils (%) (Auto) 0.1 0.0-5.0 % Neutrophils # (Auto) 7.7 1.8-7.7 K/uL Lymphocytes # (Auto) 0.4 L 1.0-4.8 K/uL Monocytes # (Auto) 0.6 0.1-1.0 K/uL Eosinophils # (Auto) 0.00 0.00-0.70 K/uL Basophils # (Auto) 0.01 0.00-0.20 K/uL Absolute Immature Granulocyte (auto 0.05 0-1 K/uL Nucleated Red Blood Cells 0.0 0.0-0.19 % Sodium Level 134 L 136-145 mmol/L Potassium Level 3.6 3.5-5.1 mmol/L Chloride Level 97 L 101-111 mmol/L Carbon Dioxide Level 17 L 21-32 mmol/L Blood Urea Nitrogen 118 *H 7-18 mg/dL Creatinine 6.6 H 0.5-1.3 mg/dL Glomerular Filtration Rate Calc 9 >90 mL/min Random Glucose 295 H 70-105 mg/dL Total Calcium 8.0 L 8.5-10.1 mg/dL Total Bilirubin 0.3 0.2-1.0 mg/dL Aspartate Amino Transf (AST/SGOT) 33 10-37 U/L Alanine Aminotransferase (ALT/SGPT) 27 12-78 U/L Alkaline Phosphatase 112 50-136 U/L Total Protein 7.1 6.0-8.3 g/dL Albumin 2.0 L 3.5-5.0 g/dL Magnesium Level 2.40 1.80-2.40 mg/dL Phosphorus Level 7.6 H 2.5-4.9 mg/dL Procalcitonin 0.86 H 0.05-0.5 ng/mL Current Medications Medications (Trade) Dose Ordered Sig/Mila Route PRN Reason Start Time Stop Time Status Last Admin Dose Admin Acetaminophen (TYLenol 325MG TAB) 650 mg Q4H PRN PO Temp >38.3C(AFTER EXTUBATION) 12/28/24 14:00 01/27/25 13:59 Acetaminophen (TYLenol 325MG TAB) 650 mg Q6H PRN PO MILD PAIN (1-3) 12/24/24 01:30 12/28/24 13:57 DC 12/27/24 23:45 650 MG Acetaminophen (TYLenol 325MG TAB) 650 mg Q6H PRN PO TEMPERATURE GREATER THAN 101.5 12/24/24 03:00 12/28/24 14:10 DC Acetaminophen (TYLenol 325MG TAB) 650 mg Q6H PRN PO MILD PAIN (1-3) 12/28/24 14:00 01/27/25 13:59 01/05/25 20:03 650 MG Acetaminophen (TYLenol 650MG SUPPOSITORY) 650 mg Q4H PRN RC Temp >38.3C WHILE INTUBATED 12/28/24 14:00 01/07/25 19:35 DC Acetaminophen (acetaMINOPHEN) 1,000 mg Q6H6 IV 12/28/24 18:00 12/29/24 17:59 DC 12/29/24 17:27 1,000 MG Acetaminophen (acetaMINOPHEN) 1,000 mg Q6H6 IVPB 12/30/24 00:00 12/31/24 20:14 DC 12/30/24 18:16 1,000 MG Albumin Human 250 ml @ 0 mls/hr AD PRN IV IF HEMODYNAMICALLY UNSTABLE 12/28/24 14:00 12/29/24 09:28 DC 12/29/24 09:28 250 MLS/HR Albuterol (DUOneb) 1 UDVIAL [id number] IH 01/01/25 18:00 01/01/25 15:25 DC Albuterol Sulfate (Proventil 0.083% 2.5mg/3ml) 2.5 mg ONCE STAT IH 12/30/24 10:22 12/30/24 10:32 DC 12/30/24 10:43 2.5 MG Aminocaproic Acid 84370 mg/Sodium Chloride 310 ml @ 25 mls/hr AD IV 12/28/24 14:00 12/28/24 14:14 DC Aminocaproic Acid 53984 mg/Sodium Chloride 480 ml @ 0 mls/hr AD PRN IV BLEEDING CONTROL 12/27/24 11:00 01/07/25 19:35 DC Amiodarone HCl (pacERONE 200MG) 200 mg DAILY PO 01/05/25 09:00 02/04/25 08:59 01/11/25 09:21 200 MG Amiodarone HCl 150 mg/Dextrose 103 ml @ 618 mls/hr ONCE IV 01/04/25 06:30 01/04/25 06:21 DC Amiodarone HCl 360 mg/Dextrose 207.2 ml @ 33.3 mls/hr AD IV 01/04/25 06:30 01/04/25 06:21 DC Amiodarone HCl 540 mg/Dextrose 310.8 ml @ 16.7 mls/hr [id number] IV 01/04/25 06:30 01/09/25 09:26 DC 01/04/25 13:01 16.7 MLS/HR Apixaban (EliquIS) 5 mg HS PO 01/07/25 21:00 01/07/25 19:35 DC Argatroban 250 mg/ Sodium Chloride 250 ml @ 0 mls/hr PROTOCOL IV 12/31/24 16:30 01/07/25 19:30 DC 01/07/25 16:32 4.17 MLS/HR Aspirin (Aspirin 81mg Ec Tab) 81 mg DAILY PO 12/24/24 09:00 01/23/25 08:59 01/11/25 09:21 81 MG Atorvastatin Calcium (LIPItor 40MG) 40 mg HS PO 12/24/24 21:00 01/01/25 11:16 DC 12/31/24 20:44 40 MG Atorvastatin Calcium (LIPItor 40MG) 40 mg HS PO 01/07/25 21:00 02/06/25 20:59 01/10/25 20:53 40 MG Benzocaine (Cepacol Sore Throat Lozenge) 1 each Q4H PRN MM SORE THROAT 01/03/25 13:30 02/02/25 13:29 01/06/25 11:16 1 EACH Bisacodyl (DulcoLAX) 10 mg DAILY PRN RC CONSTIPATION - MOM INEFFECTIVE 12/29/24 14:00 01/28/25 13:59 12/30/24 11:05 10 MG Calcium Gluconate 1 gm/Sodium Chloride 60 ml @ 200 mls/hr AD PRN IV HYPOCALCEMIA 12/28/24 14:00 01/27/25 13:59 01/01/25 01:52 200 MLS/HR Cefazolin Sodium (ANCEF 1 gm vial) 2 gm ONCALL IVP 12/26/24 16:30 12/26/24 16:28 DC Cefazolin Sodium (Ancef) 2 gm ONCALL PRN IVP SURGERY 12/26/24 16:30 12/28/24 13:57 DC Cefazolin Sodium (Ancef) 2 gm Q8H IVPB 12/28/24 19:00 12/29/24 11:01 DC 12/29/24 11:04 2 GM Clopidogrel Bisulfate (plaVIX 75MG) 75 mg DAILY PO 01/08/25 09:00 02/07/25 08:59 01/11/25 09:20 75 MG Dexamethasone (DeCADron 4 mg TAB) 6 mg DAILY PO 01/09/25 09:00 01/09/25 08:06 DC Dexamethasone (DeCADron 4 mg TAB) 10 mg BID PO 01/09/25 09:00 02/08/25 08:59 01/11/25 09:21 10 MG Dexmedetomidine/ Sodium Chloride (PRECEdex 400MCG/ 100ML-NS) 400 mcg PROTOCOL IV 12/28/24 14:00 12/29/24 13:59 DC 12/29/24 12:16 400 MCG Dexmedetomidine/ Sodium Chloride (PRECEdex 400MCG/ 100ML-NS) 400 mcg PROTOCOL IV 12/29/24 18:00 01/28/25 17:59 12/31/24 06:05 400 MCG Dextrose (D50w) 50 ml AD PRN IV HYPOGLYCEMIA PROTOCOL 12/28/24 14:00 01/27/25 13:59 Dextrose (D50w) 50 ml ONCE STAT IV 12/30/24 11:36 12/30/24 11:39 DC 12/30/24 11:45 50 ML Dextrose/Sodium Chloride 1,000 ml @ 50 mls/hr Q20H IV 12/30/24 11:30 01/01/25 16:17 DC 01/01/25 02:09 50 MLS/HR Dobutamine HCl/ Dextrose 250 ml @ 0 mls/hr PROTOCOL IV 12/29/24 14:00 01/08/25 15:43 DC 01/05/25 08:48 4.1 MLS/HR Docusate Sodium (COLace 100MG CAP) 100 mg BID PO 12/28/24 21:00 12/29/24 08:01 DC 12/28/24 20:53 100 MG Docusate Sodium (COLace LIQUID 100MG/10ML) 100 mg BID PO 12/29/24 08:00 01/28/25 07:59 01/11/25 09:22 100 MG Enoxaparin Sodium (Lovenox) 30 mg DAILY SQ 12/31/24 09:00 12/31/24 16:12 DC Enoxaparin Sodium (Lovenox) 30 mg DAILY SQ 01/08/25 09:00 01/07/25 20:03 DC Epinephrine HCl 10 mg/Sodium Chloride 250 ml @ 0 mls/hr AD PRN IV TITRATE 12/27/24 11:00 01/26/25 10:59 12/30/24 04:29 0 MLS/HR Epinephrine HCl 10 mg/Sodium Chloride 250 ml @ 0 mls/hr AD PRN IV POST-OP CARDIOVASCULAR ORDERS 12/28/24 14:00 12/28/24 14:14 DC Famotidine (Pepcid 20mg Vial) 20 mg BID IV 12/28/24 21:00 12/31/24 20:20 DC 12/31/24 08:51 20 MG Famotidine (Pepcid 20mg Vial) 20 mg Q48H IV 01/02/25 09:00 01/02/25 04:51 DC Famotidine (Pepcid 20mg Tab) 20 mg DAILY PO 12/24/24 09:00 12/28/24 13:54 DC 12/26/24 10:19 20 MG Furosemide (LASix 20MG TAB) 20 mg Q12H PO 12/30/24 09:00 12/30/24 08:34 DC Furosemide (LASix 20MG VIAL) 20 mg Q12H IV 12/29/24 09:00 12/30/24 08:34 DC 12/29/24 09:20 20 MG Furosemide (LASix 40MG TAB) 40 mg BID@09,17 PO 01/10/25 17:00 02/09/25 16:59 01/11/25 09:20 40 MG Furosemide (LASix 40MG VIAL) 40 mg Q12H IV 01/08/25 20:00 01/10/25 09:57 DC 01/09/25 21:05 40 MG Furosemide 100 mg/ Sodium Chloride 100 ml @ 0 mls/hr PROTOCOL IV 12/29/24 14:30 01/08/25 13:45 DC 01/07/25 08:41 0 MLS/HR Glucagon (Glucagon 1mg Kit) 1 mg AD PRN IM HYPOGLYCEMIA PROTOCOL 12/28/24 14:00 01/27/25 13:59 Guaifenesin (MUCinex 600 MG TABLET.ER) 600 mg BID PRN PO COUGH 01/08/25 09:30 02/07/25 09:29 Guaifenesin/ Dextromethorphan (RobiTUSSin DM 200/20MG 10ML) 10 ml Q4H PRN PO COUGH 01/03/25 16:30 01/08/25 09:29 DC 01/07/25 08:25 10 ML Heparin Sodium (Porcine) (HEParin 5,000 UNIT VIAL) *calculation based on ACTUAL B... AD PRN IV HEPARIN PROTOCOL 12/24/24 02:30 12/28/24 13:54 DC 12/24/24 17:32 5,000 UNIT Heparin Sodium (Porcine) (HEParin 5,000 UNIT VIAL) 5,000 unit BID SQ 01/08/25 09:00 02/07/25 08:59 01/11/25 09:39 5,000 UNIT Heparin Sodium/ Dextrose 250 ml @ 0 mls/hr Q6H IV 12/24/24 02:30 12/28/24 13:54 DC 12/27/24 17:04 11.3 MLS/HR Hydralazine HCl (APRESOLine 20MG INJ) 10 mg Q6H PRN IV For:SBP above 160;DBP above 90 12/24/24 03:00 12/28/24 13:54 DC Insulin Human Regular (humuLIN R 100 UNIT/ML 3ML) 10 unit ONCE STAT IV 12/30/24 11:42 12/30/24 11:45 DC 12/30/24 12:01 10 UNIT Insulin Human Regular (humuLIN R 100 UNIT/ML 3ML) 10 unit ONCE STAT SQ 12/30/24 11:36 12/30/24 11:43 DC Insulin Human Regular 100 unit/ Sodium Chloride 100 ml @ 0 mls/hr AD IV 12/28/24 14:00 12/29/24 17:55 DC 12/28/24 17:09 5 MLS/HR Ipratropium [place] (AtrovENT UD) 0.5 mg [id number] IH 12/30/24 12:00 01/29/25 11:59 01/11/25 11:06 0.5 MG Lactulose (Constulose 20gm/ 30ml Udcup) 20 gm BID PRN PO CONSTIPATION 12/24/24 03:00 12/28/24 13:54 DC 12/26/24 21:30 20 GM Lactulose (Constulose 20gm/ 30ml Udcup) 20 gm BID PRN PO CONSTIPATION 12/28/24 14:00 01/27/25 13:59 12/30/24 07:50 20 GM Lidocaine HCl/ Dextrose 250 ml @ 0 mls/hr AD PRN IV TITRATE 12/28/24 22:30 12/29/24 16:00 DC 12/29/24 06:53 15 MLS/HR Magnesium Hydroxide (Milk Of Magnesium 30ml) 30 ml DAILY PRN PO CONSTIPATION 12/28/24 14:00 01/27/25 13:59 12/30/24 10:18 30 ML Magnesium Sulfate 50 ml @ 12.5 mls/hr AD PRN IV MAG LEVEL LESS THAN 2.0 12/28/24 14:00 01/27/25 13:59 12/28/24 18:42 12.5 MLS/HR Magnesium Sulfate 50 ml @ 0 mls/hr PROTOCOL PRN IV MAGNESIUM PROTOCOL 12/26/24 15:00 12/28/24 14:10 DC Metolazone (zarOXOlyn) 5 mg ONCE PO 12/31/24 12:00 12/31/24 20:18 DC 12/31/24 12:01 5 MG Metolazone (zarOXOlyn) 5 mg ONCE PO 01/01/25 16:30 01/02/25 16:29 DC 01/01/25 16:53 5 MG Metoprolol Tartrate (loprESSOR) 12.5 mg BID PO 12/30/24 09:00 01/04/25 08:51 DC 01/03/25 20:09 12.5 MG Metoprolol Tartrate (loprESSOR) 25 mg BID PO 12/25/24 21:00 12/28/24 13:54 DC 12/28/24 09:28 25 MG Metoprolol Tartrate (loprESSOR) 25 mg TID PO 01/04/25 09:00 01/06/25 13:08 DC 01/06/25 09:27 25 MG Metoprolol Tartrate (loprESSOR) 50 mg BID PO 01/06/25 21:00 02/05/25 20:59 01/11/25 09:21 50 MG Morphine Sulfate (morPHINE 2MG SYG) 0.5 mg Q2H PRN IV MODERATE PAIN (4-6) 12/28/24 14:00 12/29/24 13:59 DC Morphine Sulfate (morPHINE 2MG SYG) 1 mg Q2H PRN IV SEVERE PAIN (7-10) 12/28/24 14:00 12/29/24 13:59 DC 12/28/24 17:05 1 MG Morphine Sulfate (morPHINE 2MG SYG) 2 mg Q4H PRN IVP SEVERE PAIN (7-10) 12/24/24 03:00 12/28/24 13:54 DC 12/26/24 02:43 2 MG Nitroglycerin (Nitroglycerin 1gm Oint) 0.5 inch Q8H5 TD 12/24/24 01:30 12/28/24 13:54 DC 12/27/24 12:57 0.5 INCH Nitroglycerin (Nitroglycerin 1gm Oint) 1 inch Q8H TD 01/04/25 15:00 02/03/25 14:59 01/11/25 11:14 1 INCH Nitroglycerin/ Dextrose 0 ml @ 0 mls/hr AD IV 12/28/24 14:00 12/31/24 14:00 DC Nitroglycerin/ Dextrose 0 ml @ 0 mls/hr AD PRN IV TITRATE 01/01/25 06:30 01/31/25 06:29 01/07/25 01:12 0 MLS/HR Norepinephrine Bitartrate 250 ml @ 0 mls/hr AD PRN IV TITRATE 12/27/24 11:00 01/26/25 10:59 01/04/25 06:14 0 MLS/HR Norepinephrine Bitartrate 8 mg/ Dextrose 250 ml @ 0 mls/hr AD PRN IV POST-OP CARDIOVASCULAR ORDERS 12/28/24 14:00 12/28/24 14:14 DC Nystatin (NYSTatin 463189 UNIT/ML 5ML UDCUP) 10 ml TID PO 01/07/25 21:00 02/06/25 20:59 01/11/25 09:22 10 ML Nystatin (NystOP 15 GM POWDER) APPLY TO PERINEAL AREA... BID TP 01/08/25 21:00 02/07/25 20:59 01/11/25 09:23 1 APPL Ondansetron HCl (zoFRAN 4MG INJ) 4 mg Q6H PRN IV NAUSEA/VOMITING 12/24/24 03:00 12/28/24 13:54 DC Ondansetron HCl (zoFRAN 4MG INJ) 4 mg Q6H PRN IV NAUSEA/VOMITING 12/28/24 14:00 01/27/25 13:59 12/30/24 11:01 4 MG Pantoprazole Sodium (PROTonix 40MG INJ) 40 mg BID IVP 01/05/25 09:00 02/04/25 08:59 01/11/25 09:21 40 MG Pantoprazole Sodium (PROTonix 40MG INJ) 40 mg Q12H IVP 01/02/25 05:00 01/05/25 04:04 DC 01/04/25 16:00 40 MG Phenol (Sore Throat [place]) 1 SPRAY Q4H PRN PO SORE THROAT 01/06/25 10:30 01/09/25 08:15 DC 01/06/25 16:37 1 SPRY Piperacillin Sod/ Tazobactam Sod (Zosyn 3.375gm+NS 50ml) 3.375 gm Q12H IV 12/30/24 15:30 01/05/25 04:05 DC 01/04/25 14:38 3.375 GM Piperacillin Sod/ Tazobactam Sod (Zosyn 3.375gm+NS 50ml) 3.375 gm Q12H IV 01/05/25 09:00 01/09/25 08:59 DC 01/08/25 20:35 3.375 GM Potassium Phosphate 250 ml @ 42 mls/hr AD PRN IV LOW PHOS LEVEL 12/28/24 14:00 01/27/25 13:59 12/29/24 06:12 42 MLS/HR Potassium Chloride 100 ml @ 100 mls/hr AD PRN IV POTASSIUM PROTOCOL 12/26/24 15:00 12/28/24 13:54 DC Potassium Chloride 100 ml @ 100 mls/hr AD PRN IV HYPOKALEMIA 12/28/24 14:00 01/27/25 13:59 01/06/25 20:02 100 MLS/HR Potassium Chloride 100 ml @ 100 mls/hr AD PRN IV POTASSIUM PROTOCOL 01/08/25 08:30 02/07/25 08:29 Potassium Chloride (K-Dur/Klor-Con 20meq) 20 meq AD PRN PO POTASSIUM PROTOCOL 12/26/24 15:00 12/28/24 13:54 DC 12/26/24 18:27 20 MEQ Potassium Chloride (KCl 10% Elixir 20meq/15ml) 20 meq AD PRN PO POTASSIUM PROTOCOL 12/26/24 15:00 12/28/24 13:54 DC Propofol 100 ml @ 0 mls/hr AD PRN IV SEDATION 12/28/24 14:00 01/01/25 13:59 DC Sodium Polystyrene Sulfonate (kayEXALate 15 GM/60 ML) 30 gm ONCE STAT PO 12/30/24 11:36 12/30/24 11:39 DC 12/30/24 11:45 30 GM Sodium Bicarbonate (Sodium Bicarb 50meq 50ml Vial) 50 meq AD PRN IV OTHER[SEE DOSING INSTRUCTIONS] 12/28/24 14:00 12/31/24 14:00 DC 12/30/24 12:45 100 MEQ Sodium Chloride 500 ml @ 0 mls/hr AD IV 12/28/24 14:00 01/27/25 13:59 Sodium Chloride 1,000 ml @ 10 mls/hr ONCE IV 12/28/24 14:00 12/29/24 13:59 DC 12/28/24 17:06 10 MLS/HR Sodium Chloride (NS Flush 10ml) 10 ml Q8H PRN IVP IV LINE FLUSH 12/28/24 14:00 01/27/25 13:59 Sodium Chloride (Sodium Chloride 3% Inh) 4 ML [id number] IH 01/04/25 12:00 02/03/25 11:59 01/11/25 11:07 4 ML Tramadol HCl (UltRAM) 25 mg Q6H PRN PO MODERATE PAIN (4-6) 12/28/24 14:00 12/29/24 13:56 DC 12/29/24 11:05 25 MG Tramadol HCl (UltRAM) 50 mg Q6H PRN PO SEVERE PAIN (7-10) 12/28/24 14:00 12/29/24 13:56 DC Vasopressin 20 units/Sodium Chloride 100 ml @ 0 mls/hr PROTOCOL IV 12/30/24 15:30 01/29/25 15:29 12/31/24 10:40 6 MLS/HR DIAGNOSTICS / RADIOLOGY: [ ] ASSESSMENT: Multi-vessel coronary artery disease status post CABG 12/28/2024 Non-STEMI. 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 Hypertension. Anemia. ERICK possibly due to ATN New onset atrial fibrillation, not POA PLAN: ACS NSTEMI due to Multi vessel CAD, s/p CABG Day 10 * Continue aspirin, atorvastatin * Argatroban drip is stopped and patient is started on clopidogrel by Cardiology * Encouraged to use IS and to clear the secretions and use p.r.n. benzocaine spray for throat irritation * Monitor chest tube output * Strict I/O and daily weights Leukocytosis post CABG, secondary to Dexamethasone * His white cell count is 8.8 * Ordered influenza and COVID-19 testing, tested negative * Ordered speech evaluation for suspected aspiration pneumonia * We will follow up with the labs and continue to monitor HFrEF LV ejection fraction 25-30% by echo on 01/01/2025 * Patient LVEF is 25-30% by echocardiography, down from 50-55% on 12/27/24 * Lasix drip is weaned off and patient is started on Lasix 40 mg IV Q12H by Nephrology * Resume GDMT for heart failure when weaned from pressors and more stable * Strict I&O and daily weights 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, S/P LLE femoral thrombectomy * Patient has demarcating necrosis of the left toes and midfoot and is improving * Patient underwent left lower extremity femoral thrombectomy on 01/01, after finding monophasic waveforms be on popliteal artery by arterial Doppler * Continue atorvastatin and aspirin * Continue nitroglycerin paste as per carton repairer * can ambulate with the use of a CAM walking boot with physical therapy with a walker as per podiatry consult * Monitor leg perfusion, pulses, swelling, and discoloration Anemia, post CABG * Patient received 4 units of packed RBCs * Iron panel showed Iron 20, % Sat 5.5, TIBC 360 indicating Iron deficiency, received 2 doses of IV Venofer * Monitor CBC daily in the a.m. daily * Monitor for signs of bleeding Acute on chronic renal dysfunction * Patient urine output is currently 2 L * Creatinine Improved from 6.9 to 6.6 * Monitor CBC and electrolytes in the a.m. daily * Avoid nephrotoxic agents New onset atrial fibrillation, not POA Amiodarone 200 mg p.o. as per Cardiology recommendation Currently in sinus rhythm GI prophylaxis with Protonix 40 mg IV Continue DVT prophylaxis with heparin 5000 SQ b.i.d. ATTESTATION BY PHYSICIAN I have seen and examined the patient. I reviewed the documentation, medical decision making, and treatment plan as noted by the resident provider above. I agree with the findings and plan of care. MISTY PORTER MD, HARSHAVARDHA MD Jan 11, 2025 13:04
--- NOTE | 2025-01-11 14:41 | PN ---
[facility] PROGRESS NOTE Date Patient Seen: Jan 11, 2025 Time of Visit: 14:30 Supervising Physician: Dr. Jaramillo Primary Care Physician: Joe Felton D.O. Outpatient Specialists: [ ] Inpatient Consults: CK Mcnair, Radha Swartz, Dr Guzman Attending: Festus Tovar MD PROBLEM LIST: CAD post CABG 12/28/2024 Acute left lower extremity ischemia Left LE Arterial occlusion S/P removal of IABP and thrombectomy LE 12/31/24 Acute on chronic combined heart failure with reduced EF of 25-30%, improving Cardiorenal syndrome Acute renal failure Non-STEMI POA Hypertension Anemia Hypokalemia INTERVAL HISTORY: Patient evaluated at bedside today, he is currently sitting in his bedside chair, denies any acute chest pain shortness of breath nausea or vomiting. Patient's saturations were 97%. He remains on room air today with a white count of 8.8. Patient has no further critical care needs nor is he in respiratory distress, therefore [facility] will sign off the case at this time. Thank you for allowing us to participate in the care of this patient. Plan: Pulmonary Services will sign off the case at this time, recommend to continue to follow recommendations from Podiatry primary Continue work with PT/OT Follow podiatry recs Case management working on placement Patient downgraded Follow labs and imaging, telemetry Follow cardiology recs REVIEW OF SYSTEMS: General: No malaise or fever. Neurological: No fainting episodes or seizures. HEENT: No nasal congestion or nasal secretion. Respiratory: No cough, shortness of breath, or wheezing Cardiac: No chest pain or palpitations. midsternal incision line tenderness Gastrointestinal: No vomiting or diarrhea. Genitourinary: No dysuria hematuria. Skin: No rashes or lesions. Hematological: No bruises or bleeding.+ lt foot pain Musculoskeletal: No joint pains or arthralgias. Psychiatric: No depression or panic attacks. PHYSICAL EXAM: GENERAL: Awake alert and oriented x2 HEENT: EOMI, Sclera non icteric, moist mucosa NECK: Supple, no JVD, trachea midline LUNGS: Chest tubes in place, HEART: Regular rate and rhythm. Normal S1 and S2, without murmurs ABD: Abdomen soft, nontender. Bowel sounds present EXT: No clubbing cyanosis or edema NEURO: GCS of 14 no focal weakness. Vital Signs (last 8hr) Date Time Temp Pulse Resp B/P (MAP) Pulse Ox O2 Delivery O2 Flow Rate FiO2 01/11/25 12:00 97.5 83 16 139/96 99 Room Air 01/11/25 11:07 80 20 N/A Room Air 21 01/11/25 11:07 80 20 01/11/25 08:00 97 Nasal Cannula* 2 28 01/11/25 08:00 97.5 79 16 142/90 97 Room Air 01/11/25 07:02 77 20 N/A Room Air 21 01/11/25 06:59 77 20 LABS: Hematology Labs: Test 01/11/25 04:16 Range/Units White Blood Count 8.8 4.8-10.8 K/uL Red Blood Count 4.12 L 4.50-6.20 MIL/uL Hemoglobin 10.7 L 14.0-18.0 g/dL Hematocrit 33.7 L 42-54 % Mean Corpuscular Volume 81.8 79-99 fL Mean Corpuscular Hemoglobin 26.0 L 27.0-33.0 pg Mean Corpuscular Hemoglobin Concent 31.8 L 32.0-36.0 g/dL Red Cell Distribution Width 26.5 H 11.0-15.5 % Platelet Count 549 H 130-400 K/uL Mean Platelet Volume 11.8 H 7.5-10.5 fL Immature Granulocyte % (Auto) 0.6 0-1 % Neutrophils (%) (Auto) 88.1 H 40.0-77.0 % Lymphocytes (%) (Auto) 4.9 L 21.0-51.0 % Monocytes (%) (Auto) 6.3 3.0-13.0 % Eosinophils (%) (Auto) 0.0 0.0-8.0 % Basophils (%) (Auto) 0.1 0.0-5.0 % Neutrophils # (Auto) 7.7 1.8-7.7 K/uL Lymphocytes # (Auto) 0.4 L 1.0-4.8 K/uL Monocytes # (Auto) 0.6 0.1-1.0 K/uL Eosinophils # (Auto) 0.00 0.00-0.70 K/uL Basophils # (Auto) 0.01 0.00-0.20 K/uL Absolute Immature Granulocyte (auto 0.05 0-1 K/uL Nucleated Red Blood Cells 0.0 0.0-0.19 % Chemistry Labs: Test 01/11/25 04:16 01/10/25 21:06 01/10/25 04:09 Range/Units Sodium Level 134 L 136-145 mmol/L Potassium Level 3.6 3.5-5.1 mmol/L Chloride Level 97 L 101-111 mmol/L Carbon Dioxide Level 17 L 21-32 mmol/L Blood Urea Nitrogen 118 *H 7-18 mg/dL Creatinine 6.6 H 0.5-1.3 mg/dL Glomerular Filtration Rate Calc 9 >90 mL/min Random Glucose 295 H 70-105 mg/dL Total Calcium 8.0 L 8.5-10.1 mg/dL Total Bilirubin 0.3 0.2-1.0 mg/dL Aspartate Amino Transf (AST/SGOT) 33 10-37 U/L Alanine Aminotransferase (ALT/SGPT) 27 12-78 U/L Alkaline Phosphatase 112 50-136 U/L Total Protein 7.1 6.0-8.3 g/dL Albumin 2.0 L 3.5-5.0 g/dL Magnesium Level 2.40 1.80-2.40 mg/dL Phosphorus Level 7.6 H 2.5-4.9 mg/dL Procalcitonin 0.86 H 0.05-0.5 ng/mL DIAGNOSTICS / RADIOLOGY RESULTS: [ ] PLAN NEURO: Minimize central acting medications as possible. Maintain fall precautions, adequate lighting during the day PULMONARY: Supplemental 02 as needed. Maintain aspiration precautions at all times CARDIOVASCULAR: Follow hemodynamics. Vital signs per facility protocol GI & NUTRITION: Continue with nutritional support. Continue stool softeners and laxatives as needed. KIDNEYS & ELECTROLYTES: Strict monitoring of intake, output and overall fluid balance. Avoid nephrotoxic medications to the extent possible. Medications to be dosed according to renal function. Monitor electrolytes and replace as needed ENDOCRINE: Maintain blood glucose between 100-180 at all times. Hypoglycemia protocol in place INFECTIOUS DISEASE: Trend temperature, WBC and procalcitonin level Follow cultures, deescalate antibiotics as soon as possible. Panculture if new onset fever ONCOLOGY/HEMATOLOGY/COAGULATION: Monitor for s/s of bleeding Monitor hemoglobin, coagulation studies as needed SKIN: Pressure ulcer prevention per facility protocol Specialty mattress ORTHO/REHAB: Continue PT/OT Prophylaxis: Continue GI and DVT prophylaxis Code Status: Full Resuscitation Disposition: TBD Other: Total patient care time 39 minutes excluding all procedures. CARLOS MANUEL HOUSTON Jan 11, 2025 14:41
--- NOTE | 2025-01-11 18:03 | PN ---
[facility] CARDIOLOGY PROGRESS NOTE Date Patient Seen: Jan 11, 2025 Time of Visit: 18:02 Interval History: No acute events overnight. Renal function is not improved, creatinine seven, not on hemodialysis, overnight urine output 1975 mL, currently denying any c ardiac symptoms or anginal equivalents Physical Examination: GENERAL: [No acute distress.] NECK: R CVC LUNGS: [ diminished inspiratory effort. No wheezes, or rhonchi.] HEART: [Normal rate and rhythm. Normal S1 and S2 without murmurs, gallop or rub.] VASC: [Peripheral pulses +1 bilaterally. blistering to distal left foot with ecchymoses to distal digits] ABD: soft, nontender SKIN: [ecchymoses, blistering to LLE distal digits. sensation and motor intact NEURO: [Awake, alert , moves all extremities.] Laboratory: [ ] Hematology Labs: Test 01/11/25 04:16 Range/Units White Blood Count 8.8 4.8-10.8 K/uL Red Blood Count 4.12 L 4.50-6.20 MIL/uL Hemoglobin 10.7 L 14.0-18.0 g/dL Hematocrit 33.7 L 42-54 % Mean Corpuscular Volume 81.8 79-99 fL Mean Corpuscular Hemoglobin 26.0 L 27.0-33.0 pg Mean Corpuscular Hemoglobin Concent 31.8 L 32.0-36.0 g/dL Red Cell Distribution Width 26.5 H 11.0-15.5 % Platelet Count 549 H 130-400 K/uL Mean Platelet Volume 11.8 H 7.5-10.5 fL Immature Granulocyte % (Auto) 0.6 0-1 % Neutrophils (%) (Auto) 88.1 H 40.0-77.0 % Lymphocytes (%) (Auto) 4.9 L 21.0-51.0 % Monocytes (%) (Auto) 6.3 3.0-13.0 % Eosinophils (%) (Auto) 0.0 0.0-8.0 % Basophils (%) (Auto) 0.1 0.0-5.0 % Neutrophils # (Auto) 7.7 1.8-7.7 K/uL Lymphocytes # (Auto) 0.4 L 1.0-4.8 K/uL Monocytes # (Auto) 0.6 0.1-1.0 K/uL Eosinophils # (Auto) 0.00 0.00-0.70 K/uL Basophils # (Auto) 0.01 0.00-0.20 K/uL Absolute Immature Granulocyte (auto 0.05 0-1 K/uL Nucleated Red Blood Cells 0.0 0.0-0.19 % Chemistry Labs: Test 01/11/25 04:16 01/10/25 21:06 01/10/25 04:09 Range/Units Sodium Level 134 L 136-145 mmol/L Potassium Level 3.6 3.5-5.1 mmol/L Chloride Level 97 L 101-111 mmol/L Carbon Dioxide Level 17 L 21-32 mmol/L Blood Urea Nitrogen 118 *H 7-18 mg/dL Creatinine 6.6 H 0.5-1.3 mg/dL Glomerular Filtration Rate Calc 9 >90 mL/min Random Glucose 295 H 70-105 mg/dL Total Calcium 8.0 L 8.5-10.1 mg/dL Total Bilirubin 0.3 0.2-1.0 mg/dL Aspartate Amino Transf (AST/SGOT) 33 10-37 U/L Alanine Aminotransferase (ALT/SGPT) 27 12-78 U/L Alkaline Phosphatase 112 50-136 U/L Total Protein 7.1 6.0-8.3 g/dL Albumin 2.0 L 3.5-5.0 g/dL Magnesium Level 2.40 1.80-2.40 mg/dL Phosphorus Level 7.6 H 2.5-4.9 mg/dL Procalcitonin 0.86 H 0.05-0.5 ng/mL Diagnostics / Radiology: [Copy/Paste Echos/Imaging Report here] Impression and Plan: ACS-NSTEMI MVCAD s/p CABG with VG-RCA, VG-OM, TORRES-LAD and VG-distal LAD LLE ALI while IABP in place, status post femoral thrombectomy, placed on argatroban. New onset atrial fibrillation with rapid ventricular response, converted. Hypertension ICMP LVEF 25-30% Acute renal failure without dialysis #ACS-NSTEMI on presentation Patient presented as a transfer for admission due to NSTEMI Presenting hemoglobin was 7.1 g, underwent EGD was negative for active bleeding or ulcers Coronary angiogram revealing multivessel CAD CV surgery was consulted for CABG s/p 4 v CABG and insertion of aortic balloon pump with VG-RCA, VG-OM, TORRES-LAD and VG-distal LAD Removal of IABP 12/31 Defer the use of nephrotoxic medications due to worsening renal function Continue heparin infusion per protocol Continue [id number] mg daily, ASA 81 mg daily, Lopressor 50 mg every12 hours and atorvastatin 40 mg q.h.s. Rest of care by CV surgery #HFmrEF ICM-LVEF 25-30%- NYHA II Euvolemic and compensated on exam 2D echocardiogram (01/01/2025) LVEF 25-30%, hypokinetic anterior wall and apex. Strict I's and O's and daily weights. Urine output in the past 24 hours 2 L, with a net-1.5 L Continue Lasix 40 mg IV every 12 hours GDMT: Continue Lopressor 50 mg every12 hours Unable to optimize GDM T any further due to worsening renal function (nephrology is following) # paroxysmal atrial fibrillation Documented episode atrial fibrillation with RVR on 01/04/2025 Initially cardioverted with amiodarone bolus and infusion Current review of telemetry sinus rhythm with a heart rate of 77 beats per minute with no events overnight We will continue heparin infusion per protocol, we will recommend Eliquis once deemed safe by CV surgery Continue Lopressor 50 mg every 12 hours, amiodarone 200 mg daily Keep on telemetry, monitor/replace electrolytes as needed ( Mg >2 , K > 4 ) Thank you for this consult cardiology will continue to follow along Kane rivera MD ATTESTATION BY PHYSICIAN I have seen and examined the patient, reviewed the above documentation, participated in medical decision making, made necessary modifications, and agree with the treatment plan as documented by my mid-level provider above. MD IRASEMA Alas JAMES R MD Jan 11, 2025 18:03
[2025-01-11] MEDS: BALSAM PERU/CASTOR OIL 60 GM TUBE TP SCH (20:42)
--- NOTE | 2025-01-11 21:33 | PN ---
SUBJECTIVE: The patient is postop day #14 from a coronary artery bypass grafting. The patient has been moved out of the ICU and he has been doing well. He is afebrile. Vital signs are stable. He has started to ambulate. His sternal wound is healing well. His heart rate is normal. His lungs are unlabored at rest. His abdomen is soft and nontender. He has a Kerlix wrap on his left foot. ASSESSMENT AND PLAN: * Status post coronary artery bypass grafting. Continue aspirin, Lasix, sternal precautions and cardiac rehabilitation. Currently pursuing shelter facility for placement. * Hypercholesterolemia. Lipitor at bedtime and low cholesterol, cardiac diet. * Left foot wound. The patient may need to be evaluated for peripheral vascular disease after he recovers from his coronary artery bypass graft. Continue wound care. * DVT prophylaxis, Lovenox subcutaneous daily. TID: [id number] RECEIPT: [id number]
[2025-01-12] VITALS (15 sets, daily range): BP systolic 129–164; BP diastolic 74–103; PULSE 74–106; RESP 18–20; TEMP 97.6–98.5; O2SAT 97–98
[2025-01-12 05:12] LABS: NUCLEATED RED BLOOD CELLS 0.0 % (0.0-0.19); PLATELET COUNT (AUTO) 616 K/uL (130-400); RED BLOOD CELL COUNT(AUTO) 4.07 MIL/uL (4.50-6.20); RED CELL DISTRIBUTION WIDTH 25.2 % (11.0-15.5); WHITE BLOOD COUNT (AUTO) 9.5 K/uL (4.8-10.8)
[2025-01-12 05:26] LABS: CREATININE 5.9 mg/dL (0.5-1.3); GLOMERULAR FILTR. RATE CALC 11.0 mL/min (>90); GLUCOSE,RANDOM 297.0 mg/dL (70-105); SODIUM SERUM 133.0 mmol/L (136-145)
[2025-01-12 05:47] LABS: UREA NITROGEN, BLOOD 126.0 mg/dL (7-18)
--- NOTE | 2025-01-12 06:56 | PN ---
SUBJECTIVE: A 54-year-old diabetic [place] male seen on 01/12/2025. He has been followed now for a demarcated necrosis to his digits on the left. He has a BUN of 126 and a creatinine of 5.9. He has been followed by the Nephrology Service. He has been followed by Cardiology, Cardiothoracic Surgery Service. White count is 5.9. Currently not receiving any antibiotic therapy. He is receiving Plavix, vasopressin, aspirin, and acetaminophen. He is ambulating with a surgical shoe on the left, been followed for coronary artery bypass grafting surgery 12/28/2024, removal of an intra-aortic balloon pump with thrombectomy 12/31/2024. Left lower extremity ischemia, appears to be embolic in nature. He has pulses that are audible by Doppler on the left, pulses that are palpable on the right. [id number] combined heart failure with ejection fraction of 25-30%, cardiorenal syndrome, acute renal failure, hypertension, anemia, hypokalemia. According to the Nephrology Service, there is no need for renal replacement therapy at this point. OBJECTIVE: His examination today shows he has necrotic eschars, dry to the entirety of his digits 1, 2, 3, 4, and 5 on the left. Blistering lesions to the dorsal and plantar aspect of his forefoot bilaterally. Digits are cold to the touch. ASSESSMENT: A 54-year-old male, status post thrombectomy, removal of aortic balloon pump after 4-vessel coronary artery bypass grafting, renal failure, new-onset atrial fibrillation, demarcating necrosis of all digits of the left foot in the presence of audible Doppler studies to the anterior tibial and posterior tibial pulse on the left, hemorrhagic bullae to dorsal and plantar aspect of the midfoot on the left, acute renal failure being followed by Nephrology. PLAN: We will continue to monitor the patient closely for the ischemic changes of the digits of the left foot. He remains afebrile. His white count is within normal limits. He is not receiving antibiotics. The patient may ambulate with physical therapy with a surgical shoe on that left side. TID: [id number] RECEIPT: [id number]
[2025-01-12] MEDS ORDERED: MAGNESIUM 2GM PREMIX 50ML 50 ML IV PRN (07:30)
--- NOTE | 2025-01-12 09:22 | PN ---
SUBJECTIVE: The patient is a 54-year-old male with history of diabetes mellitus, hypertension, history of coronary artery disease status post CABG. He has had acute renal failure postoperatively and creatinine continues to slowly improve. The patient's urine output has remained adequate. He has been transferred out to a medical floor and he is being seen as a followup visit for all the above. REVIEW OF SYSTEMS: CONSTITUTIONAL: He is feeling improved. HEENT: No change of vision. No change in hearing. CARDIOVASCULAR: No current chest pain or palpitations. PULMONARY: There is no shortness of breath. GASTROINTESTINAL: The patient is tolerating a diet. MUSCULOSKELETAL: Complains of weakness. PHYSICAL EXAMINATION: VITAL SIGNS: Blood pressure is /96, pulse in the 80s and afebrile. GENERAL: Chronically ill male, lying in bed on the medical floor. HEENT: Head is atraumatic. Pupils are equal, round and reactive to light. Oropharynx is without exudate. Nares are clear. NECK: There is no JVP. There is no thyromegaly, no mass. CARDIOVASCULAR: Regular. There is no S3 or S4 gallop. LUNGS: Coarse with equal thoracic movement. ABDOMEN: Soft, nondistended, and nontender. EXTREMITIES: Reveal no clubbing and no cyanosis. NEUROLOGIC: He is awake. He is alert. LABORATORY DATA: Sodium 133, potassium 3.2, BUN 126, creatinine 5.9. IMPRESSION: * Acute renal failure * Coronary artery disease status post CABG * Diabetes mellitus. * Hypertension * Electrolyte abnormalities PLAN: The patient's creatinine continues to slowly improve. The patient's urine output has been adequate on the oral Lasix. Electrolytes have all been aggressively repleted. There is no acute need for any form of renal replacement therapy. The patient is encouraged with the physical therapy. TID: [id number] RECEIPT: [id number]
--- NOTE | 2025-01-12 12:18 | PN ---
SUBJECTIVE: The patient is postop day #15 from coronary artery bypass grafting. The patient has been slow to rehab due to a wound on his left foot. He, however, does have a special boot and has begun ambulating. OBJECTIVE: HEENT: Normocephalic, atraumatic. Extraocular muscle intact. HEART: S1, S2 and regular. LUNGS: Unlabored at rest. CHEST: Sternal wound is healing well. ABDOMEN: Mild obesity with positive bowel sounds. ASSESSMENT AND PLAN: Status post coronary artery bypass grafting. Continue rehab. Continue aspirin, Lasix, and metoprolol. Case management is working on placement in a assisted facility. Hypercholesterolemia. Lipitor at bedtime, low cholesterol, cardiac diet. Left foot wound. Continue wound care and ambulation. TID: [id number] RECEIPT: [id number]
--- NOTE | 2025-01-12 13:07 | PN ---
[facility] PROGRESS NOTE Date of Service: Jan 12, 2025 Time of Service: 13:07 SUBJECTIVE: This is a 54-year-old male who presented to [facility] with a non-STEMI. He underwent left heart catheterization which showed severe multi-vessel coronary artery disease with mid to apical inferior hypokinesis, LVEF 45-50%. He underwent echocardiogram 12/19/2024 which showed an ejection fraction of 55- 60%, mild LVH, normal-sized left atrium, mild mitral valve regurgitation and mild tricuspid valve regurgitation. He was transferred to [facility] for CABG. 12/25 patient remains admitted to the PCU, case discussed with the RN, no acute events overnight, he denied chest pain, shortness shortness for breath, no nausea, no vomiting, no abdominal discomfort. Cardiology input noted and appreciated, patient to continue aspirin 81 mg p.o. daily and atorvastatin 40 mg p.o. daily. Continue metoprolol tartrate 25 mg p.o. b.i.d.. Pending evaluation by CT surgery for consideration for CABG. Discussed with the patient. 12/26 patient remains admitted to the PCU, case discussed with the RN, no acute events overnight, the time of my visit the patient is comfortably in bed, alert oriented x3, eating breakfast, tolerating well, denies nausea, no vomiting, no abdominal discomfort, he denies chest pain, no shortness a breath. Remains on aspirin 81 mg p.o. daily, atorvastatin and metoprolol 25 mg p.o. b.i.d.. Pending evaluation by CT surgery for consideration of CABG. 12/27 patient is seen and examined at bedside, case discussed with the RN, no acute events overnight, currently the patient NPO, scheduled for CABG today by Cardiothoracic surgeon. We will continue to follow. 12/28 patient is seen and examined at bedside, case discussed with the RN, no acute events overnight, currently the patient NPO, scheduled for CABG today by Cardiothoracic surgeon. We will continue to follow. 12/29 patient is seen and examined at bedside, remains admitted to the ICU, postoperative day 1., status post CABG 12/28/2024, patient on insulin drip, nitroglycerin drip, alert oriented x3 following commands, however was mildly agitated earlier this morning, motion with the RN started on Precedex. Patient with chest tube in place. Further recommendations per Cardiothoracic surgeon. 12/30 patient remains admitted to the ICU, case discussed with the RN, patient remains confused, trying to pull his IV lines, remains on Precedex. Throughout the balloon pump in place, just to be breath, remains on epinephrine, Levophed, Lasix drip, dobutamine drip. Creatinine today at 3.0. Nephrology consultation requested, we will follow input and recommendation. Continue to monitor liver enzymes in a.m., follow ammonia level (at the time of my dictation less than 10). Continue to follow critical care input and recommendation. Prognosis remains guarded. 12/31 54-year-old male who was transferred from [facility] with a non- STEMI. He underwent left heart catheterization which showed severe multi-vessel coronary artery disease with mid to apical inferior hypokinesis, LVEF 45-50%. He underwent echocardiogram 12/19/2024 which showed an ejection fraction of 55- 60%, mild LVH, normal-sized left atrium, mild mitral valve regurgitation and m ild tricuspid valve regurgitation. He was transferred to [facility] for CABG. Cardiothoracic surgeon consultation requested, patient underwent CABG 12/28/2024. Continue to follow Cardiothoracic input and recommendations. Patient has been mildly confused post procedure, started on Precedex. 01/01 54-year-old male who was transferred from [facility] with a non- STEMI. He underwent left heart catheterization which showed severe multi-vessel coronary artery disease with mid to apical inferior hypokinesis, LVEF 45-50%. He underwent echocardiogram 12/19/2024 which showed an ejection fraction of 55- 60%, mild LVH, normal-sized left atrium, mild mitral valve regurgitation and mild tricuspid valve regurgitation. He was transferred to [facility] for CABG. Cardiothoracic surgeon consultation requested, patient underwent CABG 12/28/2024. At the time of my visit resting comfortably in bed, off Precedex, following commands, status post interval removal of intra-aortic balloon pump yesterday, remains on dobutamine and nitroglycerin drip as well as argatroban. Continue to follow critical Care and Cardiothoracic input and recommendations. 01/02/25: Patient was evaluated at the bedside. Today is postop Day 5 and he is recovering well. Patient underwent thrombectomy in the femoral artery of left lower extremity and removal of intra-aortic balloon pump yesterday. Patient has mottled appearance in the left great toe and dorsalis pedis pulsations are present. His chest tube output was 320 mL over the last 24 hours. His stool was positive for occult blood and a GI consult has been placed. Cardiology advised to continue the current treatment. Patient is weaned off Levophed and is currently on Lasix, dobutamine, nitroglycerin, and argatroban drips. A swallow test will be performed today to evaluate the need for removing NG tube. 01/03/25: Patient was evaluated at the bedside, this is postop day 6 and is recovering well. Patient has mottled appearance in the left great toe extending into all the digits. Dorsalis pedis pulsations were diminished with palpation but detected on Doppler. His chest tube output was 310 mL today. A GI consult was placed for occult blood however no intervention was recommended and advised to continue Protonix 40 mg. Nephrology recommended no renal replacement as alicia ent has good urine output,3 L today and is responding well to diuresis. Patient is continued on Lasix, dobutamine, nitroglycerin, and argatroban drips. NG tube was removed and patient was started on pureed heart healthy diet as tolerated. 01/04/2025: Patient was evaluated at the bedside, this is postop day 7. Patient had an episode of AFib with rapid ventricular response this morning and was cardioverted with amiodarone and continued on drip. Patient's left leg discoloration has improved, but still has diminished pulses only detected by Doppler. His chest tube output is 140 mL. Patient's ERICK has been worsening with creatinine 7.8 today however he has adequate urine output, 3.5 L today. Cardiology recommended to reduce Lasix drip to 2.5 and nephrology advised that patient's creatinine is stabilizing and renal function will improve in the next few days. Patient is still continuing on argatroban, nitro, and dobutamine drips. Otherwise patient has been recovering well tolerating pureed food and only complains of occasional throat pain due to cough. He was encouraged to cough to clear the chest secretions and use p.r.n. benzocaine spray for relief. His chest x-ray shows clearing pleural effusion and pulmonary edema. 01/05/2025: Patient was evaluated at the bedside and this is postop day. Patient has been in sinus rhythm since the AFib episode this morning. IV amiodarone was stopped and transitioned to p.o. 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 Mammography Technician recommended applying nitroglycerin paste and and covered it in dressing. Patient's ERICK continues to worsen, creatinine 8.2 today. However he is maintaining a good urine output, 2500 today. He has been weaning of Lasix drip. Patient has been encouraged to use incentive spirometry and cough as tolerated to clear the chest secretions. Chest x-ray showed no evidence of pulmonary venous congestion today. 01/06/2025: Patient was evaluated at the bedside, he was sitting comfortably in his chair. Patient has been in sinus rhythm. Patient continues on argatroban, Lasix, and dobutamine drips. Patient's ERICK seemed to be stabilizing his creati nine is 8.3 compared to 8.2 yesterday. Patient is maintaining good urine output, 2L in the last 24 hours. Patient's left foot was covered in dressing. Dr. Persaud evaluated the patient today and recommended walking boot with dressing if he is cleared by Cardiology for ambulation. His demarcating necrosis of the distal aspects of digits 1, 2, 3, and 4 on the left side seemed to be improving. Dr. Persaud recommended to continue nitroglycerin paste. Patient encouraged to use incentive spirometry and cough and was asked to use benzocaine for relief from throat pain. 01/07/2025 - patient seen at bedside in room 215 , patient is alert awake and oriented. Patient continues to be on argatroban, Lasix drips, his acute kidney injury possibly secondary to ATN secondary to hypotensive episode seems resolving while maintaining good urine output. Patient still complains of cough, pain in the left lower extremity. Patient's phosphorus trended down to 6.8 And anion gap closed down to 12 today. Patient currently hemodynamically stable and we will continue to monitor closely. 01/08/2025 Patient is seen and examined at the bedside. Awake alert and oriented and sitting comfortably in the chair. Argatroban drip is discontinued and patient is started on Heparin for DVT prophylaxis and Plavix 75 mg [for NSTEMI] by cardiology. Vitals blood pressure ranging in 110/80s, pulse rate 80s, respiratory rate in 20s to 30s, SpO2 greater than 95% on room air. Patient had an episode of AFib today. Currently in sinus rhythm. Chest tube and arterial line are discontinued as per CT is recommendations. Urine output 1.8 L. He still complains of productive cough, poor appetite. Labs hemoglobin stable at 10.1, potassium low at 3.1, BUN 93, creatinine improved from 7.9-7.5. Chest x-ray revealed no evidence of airspace consolidation or pulmonary venous congestion. 01/09/25: Patient was seen and evaluated at the bedside. He was awake, alert, and oriented to time place and person. Patient had been in sinus rhythm and had no acute events overnight. His vitals have been stable and only complains of throat pain. His creatinine is improving, 7.4 from 7.5 yesterday. He is maintaining good urine output of 2 L[place] [id number] today and is receiving Zosyn. His chest x-ray showed trace left pleural effusion. Still has productive cough and a poor appetite. Speech evaluation was placed for tomorrow for suspected aspiration. Testing for influenza and COVID-19 were placed. 01/10/25 patient was seen patient was sitting in chair receiving his neb treatment. Patient denied chest pain or shortness for breath. 01/11/25: Patient was seen and evaluated at the bedside in room 205. Patient was downgraded to medical floor and is recovering well from his surgery. Improving in his creatinine is at 6.6 from 6.9 yesterday. Is maintaining a good urine output of 1975 mL yesterday. His demarcating necrosis of the left foot is improving with gradually receding necrotic tissue. His bilateral pedal pulses are present with Doppler. We will have speech therapist evaluate with barium swallow for consideration of advancing diet from pureed food. 01/12/25: Patient was seen and evaluated at the bedside in room 205. Patient was sitting comfortably in the chair. Patient had no acute events overnight. Patient reports he is feeling much better and denies chest pain, shortness of breath, dizziness. Patient blood sugars were high today at 295. Patient was noted to be drinking ensure protein drinks containing added sugars with his breakfast. He has been also taking 7 doses of Decadron 4mg so far. Patient was advised not to drink the ensure drinks for now and we will taper the Decadron in 2 days. His lactic acid is elevated at 3.6 and has an anion gap metabolic acidosis. We will order a UA with microscopy and culture. Case management is working on the placement to a SNF and will follow their recommendations. REVIEW OF SYSTEMS CONSTITUTIONAL: Denies fevers, chills, or night sweats. No unintentional weight loss reported., Throat irritation NEUROLOGICAL: Denies headache, amaurosis fugax, motor weakness, sensory def icit, vertigo/spinning sensation, gait abnormalities, or tremors. CARDIOVASCULAR: Denies any exertional angina, dyspnea on exertion, orthopnea, paroxysmal nocturnal dyspnea, palpitations, life-threatening arrhythmias, claudication. PULMONARY: Denies any shortness of breath, hemoptysis, pleuritic chest pain. Patient has cough with clear sputum, improving GASTROINTESTINAL: Denies any type of dysphagia to either liquids or solids. Denies nausea, vomiting, pyrosis, early satiety, abdominal pain, diarrhea, constipation, or changes in stool consistency or caliber. GENITOURINARY: Denies frequency, urgency, nocturia, hematuria or incontinence. Andres removed PHYSICAL EXAM GENERAL APPEARANCE: Patient is alert, oriented, and comfortable lying down and sitting. NECK: Supple. No JVD. CHEST: Normal chest expansion. Telemetry in place. LUNGS: Absence of any rales, rhonchi or any wheezing. Chest tube in place. CARDIOVASCULAR: Regular. S1 and S2 normal. No appreciable rubs, murmurs or gallops. ABDOMEN: Soft, nontender, and nondistended. There is no rebound, voluntary guarding, or rigidity. : Deferred. No Andres. EXTREMITIES: LLE pulses present per Doppler, left toes and foot covered in dressing. Vital Signs (last 8hr) Date Time Temp Pulse Resp B/P (MAP) Pulse Ox O2 Delivery O2 Flow Rate FiO2 01/12/25 11:51 97.5 82 18 140/89 99 Room Air 01/12/25 07:42 98.1 79 18 147/103 97 Room Air 01/12/25 07:00 97 Nasal Cannula* 2 28 01/12/25 05:08 85 19 LABS: Laboratory: Test 01/12/25 12:40 01/12/25 08:52 01/12/25 04:37 01/11/25 04:16 Range/Units Lactic Acid Level 3.6 H 0.8-2.5 mmol/L Whole Blood Ketones Quantitative 0.1 0.0-0.6 mmol/L White Blood Count 9.5 4.8-10.8 K/uL Red Blood Count 4.07 L 4.50-6.20 MIL/uL Hemoglobin 10.7 L 14.0-18.0 g/dL Hematocrit 32.7 L 42-54 % Mean Corpuscular Volume 80.3 79-99 fL Mean Corpuscular Hemoglobin 26.3 L 27.0-33.0 pg Mean Corpuscular Hemoglobin Concent 32.7 32.0-36.0 g/dL Red Cell Distribution Width 25.2 H 11.0-15.5 % Platelet Count 616 H 130-400 K/uL Mean Platelet Volume 11.8 H 7.5-10.5 fL Nucleated Red Blood Cells 0.0 0.0-0.19 % Red Blood Cell Morphology See comments Sodium Level 133 L 136-145 mmol/L Potassium Level 3.2 L 3.5-5.1 mmol/L Chloride Level 97 L 101-111 mmol/L Carbon Dioxide Level 18 L 21-32 mmol/L Blood Urea Nitrogen 126 *H 7-18 mg/dL Creatinine 5.9 H 0.5-1.3 mg/dL Glomerular Filtration Rate Calc 11 >90 mL/min Random Glucose 297 H 70-105 mg/dL Total Calcium 8.0 L 8.5-10.1 mg/dL Immature Granulocyte % (Auto) 0.6 0-1 % Neutrophils (%) (Auto) 88.1 H 40.0-77.0 % Lymphocytes (%) (Auto) 4.9 L 21.0-51.0 % Monocytes (%) (Auto) 6.3 3.0-13.0 % Eosinophils (%) (Auto) 0.0 0.0-8.0 % Basophils (%) (Auto) 0.1 0.0-5.0 % Neutrophils # (Auto) 7.7 1.8-7.7 K/uL Lymphocytes # (Auto) 0.4 L 1.0-4.8 K/uL Monocytes # (Auto) 0.6 0.1-1.0 K/uL Eosinophils # (Auto) 0.00 0.00-0.70 K/uL Basophils # (Auto) 0.01 0.00-0.20 K/uL Absolute Immature Granulocyte (auto 0.05 0-1 K/uL Total Bilirubin 0.3 0.2-1.0 mg/dL Aspartate Amino Transf (AST/SGOT) 33 10-37 U/L Alanine Aminotransferase (ALT/SGPT) 27 12-78 U/L Alkaline Phosphatase 112 50-136 U/L Total Protein 7.1 6.0-8.3 g/dL Albumin 2.0 L 3.5-5.0 g/dL Test 01/10/25 21:06 Range/Units Magnesium Level 2.40 1.80-2.40 mg/dL Current Medications Medications (Trade) Dose Ordered Sig/Mila Route PRN Reason Start Time Stop Time Status Last Admin Dose Admin Acetaminophen (TYLenol 325MG TAB) 650 mg Q4H PRN PO Temp >38.3C(AFTER EXTUBATION) 12/28/24 14:00 01/27/25 13:59 Acetaminophen (TYLenol 325MG TAB) 650 mg Q6H PRN PO MILD PAIN (1-3) 12/24/24 01:30 12/28/24 13:57 DC 12/27/24 23:45 650 MG Acetaminophen (TYLenol 325MG TAB) 650 mg Q6H PRN PO TEMPERATURE GREATER THAN 101.5 12/24/24 03:00 12/28/24 14:10 DC Acetaminophen (TYLenol 325MG TAB) 650 mg Q6H PRN PO MILD PAIN (1-3) 12/28/24 14:00 01/27/25 13:59 01/05/25 20:03 650 MG Acetaminophen (TYLenol 650MG SUPPOSITORY) 650 mg Q4H PRN RC Temp >38.3C WHILE INTUBATED 12/28/24 14:00 01/07/25 19:35 DC Acetaminophen (acetaMINOPHEN) 1,000 mg Q6H6 IV 12/28/24 18:00 12/29/24 17:59 DC 12/29/24 17:27 1,000 MG Acetaminophen (acetaMINOPHEN) 1,000 mg Q6H6 IVPB 12/30/24 00:00 12/31/24 20:14 DC 12/30/24 18:16 1,000 MG Albumin Human 250 ml @ 0 mls/hr AD PRN IV IF HEMODYNAMICALLY UNSTABLE 12/28/24 14:00 12/29/24 09:28 DC 12/29/24 09:28 250 MLS/HR Albuterol (DUOneb) 1 UDVIAL [id number] IH 01/01/25 18:00 01/01/25 15:25 DC Albuterol Sulfate (Proventil 0.083% 2.5mg/3ml) 2.5 mg ONCE STAT IH 12/30/24 10:22 12/30/24 10:32 DC 12/30/24 10:43 2.5 MG Aminocaproic Acid 93710 mg/Sodium Chloride 310 ml @ 25 mls/hr AD IV 12/28/24 14:00 12/28/24 14:14 DC Aminocaproic Acid 42519 mg/Sodium Chloride 480 ml @ 0 mls/hr AD PRN IV BLEEDING CONTROL 12/27/24 11:00 01/07/25 19:35 DC Amiodarone HCl (pacERONE 200MG) 200 mg DAILY PO 01/05/25 09:00 02/04/25 08:59 01/12/25 09:23 200 MG Amiodarone HCl 150 mg/Dextrose 103 ml @ 618 mls/hr ONCE IV 01/04/25 06:30 01/04/25 06:21 DC Amiodarone HCl 360 mg/Dextrose 207.2 ml @ 33.3 mls/hr AD IV 01/04/25 06:30 01/04/25 06:21 DC Amiodarone HCl 540 mg/Dextrose 310.8 ml @ 16.7 mls/hr [id number] IV 01/04/25 06:30 01/09/25 09:26 DC 01/04/25 13:01 16.7 MLS/HR Apixaban (EliquIS) 5 mg HS PO 01/07/25 21:00 01/07/25 19:35 DC Argatroban 250 mg/ Sodium Chloride 250 ml @ 0 mls/hr PROTOCOL IV 12/31/24 16:30 01/07/25 19:30 DC 01/07/25 16:32 4.17 MLS/HR Aspirin (Aspirin 81mg Ec Tab) 81 mg DAILY PO 12/24/24 09:00 01/23/25 08:59 01/12/25 09:25 81 MG Atorvastatin Calcium (LIPItor 40MG) 40 mg HS PO 12/24/24 21:00 01/01/25 11:16 DC 12/31/24 20:44 40 MG Atorvastatin Calcium (LIPItor 40MG) 40 mg HS PO 01/07/25 21:00 02/06/25 20:59 01/11/25 20:41 40 MG Benzocaine (Cepacol Sore Throat Lozenge) 1 each Q4H PRN MM SORE THROAT 01/03/25 13:30 02/02/25 13:29 01/06/25 11:16 1 EACH Bisacodyl (DulcoLAX) 10 mg DAILY PRN RC CONSTIPATION - MOM INEFFECTIVE 12/29/24 14:00 01/28/25 13:59 12/30/24 11:05 10 MG Calcium Gluconate 1 gm/Sodium Chloride 60 ml @ 200 mls/hr AD PRN IV HYPOCALCEMIA 12/28/24 14:00 01/27/25 13:59 01/01/25 01:52 200 MLS/HR Cefazolin Sodium (ANCEF 1 gm vial) 2 gm ONCALL IVP 12/26/24 16:30 12/26/24 16:28 DC Cefazolin Sodium (Ancef) 2 gm ONCALL PRN IVP SURGERY 12/26/24 16:30 12/28/24 13:57 DC Cefazolin Sodium (Ancef) 2 gm Q8H IVPB 12/28/24 19:00 12/29/24 11:01 DC 12/29/24 11:04 2 GM Clopidogrel Bisulfate (plaVIX 75MG) 75 mg DAILY PO 01/08/25 09:00 02/07/25 08:59 01/12/25 09:25 75 MG Dexamethasone (DeCADron 4 mg TAB) 6 mg DAILY PO 01/09/25 09:00 01/09/25 08:06 DC Dexamethasone (DeCADron 4 mg TAB) 10 mg BID PO 01/09/25 09:00 02/08/25 08:59 01/12/25 09:24 10 MG Dexmedetomidine/ Sodium Chloride (PRECEdex 400MCG/ 100ML-NS) 400 mcg PROTOCOL IV 12/28/24 14:00 12/29/24 13:59 DC 12/29/24 12:16 400 MCG Dexmedetomidine/ Sodium Chloride (PRECEdex 400MCG/ 100ML-NS) 400 mcg PROTOCOL IV 12/29/24 18:00 01/28/25 17:59 12/31/24 06:05 400 MCG Dextrose (D50w) 50 ml AD PRN IV HYPOGLYCEMIA PROTOCOL 12/28/24 14:00 01/27/25 13:59 Dextrose (D50w) 50 ml ONCE STAT IV 12/30/24 11:36 12/30/24 11:39 DC 12/30/24 11:45 50 ML Dextrose/Sodium Chloride 1,000 ml @ 50 mls/hr Q20H IV 12/30/24 11:30 01/01/25 16:17 DC 01/01/25 02:09 50 MLS/HR Dobutamine HCl/ Dextrose 250 ml @ 0 mls/hr PROTOCOL IV 12/29/24 14:00 01/08/25 15:43 DC 01/05/25 08:48 4.1 MLS/HR Docusate Sodium (COLace 100MG CAP) 100 mg BID PO 12/28/24 21:00 12/29/24 08:01 DC 12/28/24 20:53 100 MG Docusate Sodium (COLace LIQUID 100MG/10ML) 100 mg BID PO 12/29/24 08:00 01/28/25 07:59 01/12/25 09:23 100 MG Enoxaparin Sodium (Lovenox) 30 mg DAILY SQ 12/31/24 09:00 12/31/24 16:12 DC Enoxaparin Sodium (Lovenox) 30 mg DAILY SQ 01/08/25 09:00 01/07/25 20:03 DC Epinephrine HCl 10 mg/Sodium Chloride 250 ml @ 0 mls/hr AD PRN IV TITRATE 12/27/24 11:00 01/26/25 10:59 12/30/24 04:29 0 MLS/HR Epinephrine HCl 10 mg/Sodium Chloride 250 ml @ 0 mls/hr AD PRN IV POST-OP CARDIOVASCULAR ORDERS 12/28/24 14:00 12/28/24 14:14 DC Famotidine (Pepcid 20mg Vial) 20 mg BID IV 12/28/24 21:00 12/31/24 20:20 DC 12/31/24 08:51 20 MG Famotidine (Pepcid 20mg Vial) 20 mg Q48H IV 01/02/25 09:00 01/02/25 04:51 DC Famotidine (Pepcid 20mg Tab) 20 mg DAILY PO 12/24/24 09:00 12/28/24 13:54 DC 12/26/24 10:19 20 MG Furosemide (LASix 20MG TAB) 20 mg Q12H PO 12/30/24 09:00 12/30/24 08:34 DC Furosemide (LASix 20MG VIAL) 20 mg Q12H IV 12/29/24 09:00 12/30/24 08:34 DC 12/29/24 09:20 20 MG Furosemide (LASix 40MG TAB) 40 mg BID@09,17 PO 01/10/25 17:00 02/09/25 16:59 01/12/25 09:25 40 MG Furosemide (LASix 40MG VIAL) 40 mg Q12H IV 01/08/25 20:00 01/10/25 09:57 DC 01/09/25 21:05 40 MG Furosemide 100 mg/ Sodium Chloride 100 ml @ 0 mls/hr PROTOCOL IV 12/29/24 14:30 01/08/25 13:45 DC 01/07/25 08:41 0 MLS/HR Glucagon (Glucagon 1mg Kit) 1 mg AD PRN IM HYPOGLYCEMIA PROTOCOL 12/28/24 14:00 01/27/25 13:59 Guaifenesin (MUCinex 600 MG TABLET.ER) 600 mg BID PRN PO COUGH 01/08/25 09:30 02/07/25 09:29 Guaifenesin/ Dextromethorphan (RobiTUSSin DM 200/20MG 10ML) 10 ml Q4H PRN PO COUGH 01/03/25 16:30 01/08/25 09:29 DC 01/07/25 08:25 10 ML Heparin Sodium (Porcine) (HEParin 5,000 UNIT VIAL) *calculation based on ACTUAL B... AD PRN IV HEPARIN PROTOCOL 12/24/24 02:30 12/28/24 13:54 DC 12/24/24 17:32 5,000 UNIT Heparin Sodium (Porcine) (HEParin 5,000 UNIT VIAL) 5,000 unit BID SQ 01/08/25 09:00 02/07/25 08:59 01/12/25 09:23 5,000 UNIT Heparin Sodium/ Dextrose 250 ml @ 0 mls/hr Q6H IV 12/24/24 02:30 12/28/24 13:54 DC 12/27/24 17:04 11.3 MLS/HR Hydralazine HCl (APRESOLine 20MG INJ) 10 mg Q6H PRN IV For:SBP above 160;DBP above 90 12/24/24 03:00 12/28/24 13:54 DC Insulin Human Regular (humuLIN R 100 UNIT/ML 3ML) 10 unit ONCE STAT IV 12/30/24 11:42 12/30/24 11:45 DC 12/30/24 12:01 10 UNIT Insulin Human Regular (humuLIN R 100 UNIT/ML 3ML) 10 unit ONCE STAT SQ 12/30/24 11:36 12/30/24 11:43 DC Insulin Human Regular 100 unit/ Sodium Chloride 100 ml @ 0 mls/hr AD IV 12/28/24 14:00 12/29/24 17:55 DC 12/28/24 17:09 5 MLS/HR Ipratropium [place] (AtrovENT UD) 0.5 mg [id number] IH 12/30/24 12:00 01/29/25 11:59 01/12/25 12:14 0.5 MG Lactulose (Constulose 20gm/ 30ml Udcup) 20 gm BID PRN PO CONSTIPATION 12/24/24 03:00 12/28/24 13:54 DC 12/26/24 21:30 20 GM Lactulose (Constulose 20gm/ 30ml Udcup) 20 gm BID PRN PO CONSTIPATION 12/28/24 14:00 01/27/25 13:59 12/30/24 07:50 20 GM Lidocaine HCl/ Dextrose 250 ml @ 0 mls/hr AD PRN IV TITRATE 12/28/24 22:30 12/29/24 16:00 DC 12/29/24 06:53 15 MLS/HR Magnesium Hydroxide (Milk Of Magnesium 30ml) 30 ml DAILY PRN PO CONSTIPATION 12/28/24 14:00 01/27/25 13:59 12/30/24 10:18 30 ML Magnesium Sulfate 50 ml @ 12.5 mls/hr AD PRN IV MAG LEVEL LESS THAN 2.0 12/28/24 14:00 01/12/25 07:16 DC 12/28/24 18:42 12.5 MLS/HR Magnesium Sulfate 50 ml @ 0 mls/hr PROTOCOL PRN IV MAGNESIUM PROTOCOL 12/26/24 15:00 12/28/24 14:10 DC Magnesium Sulfate 50 ml @ 0 mls/hr PROTOCOL PRN IV MAGNESIUM PROTOCOL 01/12/25 07:30 02/11/25 07:29 Metolazone (zarOXOlyn) 5 mg ONCE PO 12/31/24 12:00 12/31/24 20:18 DC 12/31/24 12:01 5 MG Metolazone (zarOXOlyn) 5 mg ONCE PO 01/01/25 16:30 01/02/25 16:29 DC 01/01/25 16:53 5 MG Metoprolol Tartrate (loprESSOR) 12.5 mg BID PO 12/30/24 09:00 01/04/25 08:51 DC 01/03/25 20:09 12.5 MG Metoprolol Tartrate (loprESSOR) 25 mg BID PO 12/25/24 21:00 12/28/24 13:54 DC 12/28/24 09:28 25 MG Metoprolol Tartrate (loprESSOR) 25 mg TID PO 01/04/25 09:00 01/06/25 13:08 DC 01/06/25 09:27 25 MG Metoprolol Tartrate (loprESSOR) 50 mg BID PO 01/06/25 21:00 02/05/25 20:59 01/12/25 09:23 50 MG Morphine Sulfate (morPHINE 2MG SYG) 0.5 mg Q2H PRN IV MODERATE PAIN (4-6) 12/28/24 14:00 12/29/24 13:59 DC Morphine Sulfate (morPHINE 2MG SYG) 1 mg Q2H PRN IV SEVERE PAIN (7-10) 12/28/24 14:00 12/29/24 13:59 DC 12/28/24 17:05 1 MG Morphine Sulfate (morPHINE 2MG SYG) 2 mg Q4H PRN IVP SEVERE PAIN (7-10) 12/24/24 03:00 12/28/24 13:54 DC 12/26/24 02:43 2 MG Nitroglycerin (Nitroglycerin 1gm Oint) 0.5 inch Q8H5 TD 12/24/24 01:30 12/28/24 13:54 DC 12/27/24 12:57 0.5 INCH Nitroglycerin (Nitroglycerin 1gm Oint) 1 inch Q8H TD 01/04/25 15:00 02/03/25 14:59 01/12/25 06:39 1 INCH Nitroglycerin/ Dextrose 0 ml @ 0 mls/hr AD IV 12/28/24 14:00 12/31/24 14:00 DC Nitroglycerin/ Dextrose 0 ml @ 0 mls/hr AD PRN IV TITRATE 01/01/25 06:30 01/31/25 06:29 01/07/25 01:12 0 MLS/HR Norepinephrine Bitartrate 250 ml @ 0 mls/hr AD PRN IV TITRATE 12/27/24 11:00 01/26/25 10:59 01/04/25 06:14 0 MLS/HR Norepinephrine Bitartrate 8 mg/ Dextrose 250 ml @ 0 mls/hr AD PRN IV POST-OP CARDIOVASCULAR ORDERS 12/28/24 14:00 12/28/24 14:14 DC Nystatin (NYSTatin 898209 UNIT/ML 5ML UDCUP) 10 ml TID PO 01/07/25 21:00 02/06/25 20:59 01/12/25 09:00 10 ML Nystatin (NystOP 15 GM POWDER) APPLY TO PERINEAL AREA... BID TP 01/08/25 21:00 02/07/25 20:59 01/12/25 09:00 1 APPL Ondansetron HCl (zoFRAN 4MG INJ) 4 mg Q6H PRN IV NAUSEA/VOMITING 12/24/24 03:00 12/28/24 13:54 DC Ondansetron HCl (zoFRAN 4MG INJ) 4 mg Q6H PRN IV NAUSEA/VOMITING 12/28/24 14:00 01/27/25 13:59 12/30/24 11:01 4 MG Pantoprazole Sodium (PROTonix 40MG INJ) 40 mg BID IVP 01/05/25 09:00 02/04/25 08:59 01/12/25 09:29 40 MG Pantoprazole Sodium (PROTonix 40MG INJ) 40 mg Q12H IVP 01/02/25 05:00 01/05/25 04:04 DC 01/04/25 16:00 40 MG Phenol (Sore Throat [place]) 1 SPRAY Q4H PRN PO SORE THROAT 01/06/25 10:30 01/09/25 08:15 DC 01/06/25 16:37 1 SPRY Piperacillin Sod/ Tazobactam Sod (Zosyn 3.375gm+NS 50ml) 3.375 gm Q12H IV 12/30/24 15:30 01/05/25 04:05 DC 01/04/25 14:38 3.375 GM Piperacillin Sod/ Tazobactam Sod (Zosyn 3.375gm+NS 50ml) 3.375 gm Q12H IV 01/05/25 09:00 01/09/25 08:59 DC 01/08/25 20:35 3.375 GM Potassium Phosphate 250 ml @ 42 mls/hr AD PRN IV LOW PHOS LEVEL 12/28/24 14:00 01/27/25 13:59 12/29/24 06:12 42 MLS/HR Potassium Chloride 100 ml @ 100 mls/hr AD PRN IV POTASSIUM PROTOCOL 12/26/24 15:00 12/28/24 13:54 DC Potassium Chloride 100 ml @ 100 mls/hr AD PRN IV HYPOKALEMIA 12/28/24 14:00 01/12/25 07:19 DC 01/06/25 20:02 100 MLS/HR Potassium Chloride 100 ml @ 100 mls/hr AD PRN IV POTASSIUM PROTOCOL 01/08/25 08:30 02/07/25 08:29 Potassium Chloride 100 ml @ 100 mls/hr AD PRN IV POTASSIUM PROTOCOL 01/12/25 07:30 02/11/25 07:29 Potassium Chloride (K-Dur/Klor-Con 20meq) 20 meq AD PRN PO POTASSIUM PROTOCOL 12/26/24 15:00 12/28/24 13:54 DC 12/26/24 18:27 20 MEQ Potassium Chloride (K-Dur/Klor-Con 20meq) 20 meq AD PRN PO POTASSIUM PROTOCOL 01/12/25 07:30 02/11/25 07:29 Potassium Chloride (KCl 10% Elixir 20meq/15ml) 20 meq AD PRN PO POTASSIUM PROTOCOL 12/26/24 15:00 12/28/24 13:54 DC Potassium Chloride (KCl 10% Elixir 20meq/15ml) 20 meq AD PRN PO POTASSIUM PROTOCOL 01/12/25 07:30 02/11/25 07:29 Propofol 100 ml @ 0 mls/hr AD PRN IV SEDATION 12/28/24 14:00 01/01/25 13:59 DC Sodium Polystyrene Sulfonate (kayEXALate 15 GM/60 ML) 30 gm ONCE STAT PO 12/30/24 11:36 12/30/24 11:39 DC 12/30/24 11:45 30 GM Sodium Bicarbonate (Sodium Bicarb 50meq 50ml Vial) 50 meq AD PRN IV OTHER[SEE DOSING INSTRUCTIONS] 12/28/24 14:00 12/31/24 14:00 DC 12/30/24 12:45 100 MEQ Sodium Chloride 500 ml @ 0 mls/hr AD IV 12/28/24 14:00 01/27/25 13:59 Sodium Chloride 1,000 ml @ 10 mls/hr ONCE IV 12/28/24 14:00 12/29/24 13:59 DC 12/28/24 17:06 10 MLS/HR Sodium Chloride (NS Flush 10ml) 10 ml Q8H PRN IVP IV LINE FLUSH 12/28/24 14:00 01/27/25 13:59 Sodium Chloride (Sodium Chloride 3% Inh) 4 ML [id number] IH 01/04/25 12:00 02/03/25 11:59 01/12/25 12:14 4 ML Tramadol HCl (UltRAM) 25 mg Q6H PRN PO MODERATE PAIN (4-6) 12/28/24 14:00 12/29/24 13:56 DC 12/29/24 11:05 25 MG Tramadol HCl (UltRAM) 50 mg Q6H PRN PO SEVERE PAIN (7-10) 12/28/24 14:00 12/29/24 13:56 DC Vasopressin 20 units/Sodium Chloride 100 ml @ 0 mls/hr PROTOCOL IV 12/30/24 15:30 01/29/25 15:29 12/31/24 10:40 6 MLS/HR Wound Care/ Dressing Products (Venelex Ointment) apply to buttocks and scrotum BID TP 01/11/25 21:00 02/10/25 20:59 01/12/25 09:00 1 GM DIAGNOSTICS / RADIOLOGY: [ ] ASSESSMENT: Multi-vessel coronary artery disease status post CABG 12/28/2024 Non-STEMI. 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 Hypertension. Anemia. ERICK possibly due to ATN New onset atrial fibrillation, not POA PLAN: ACS NSTEMI due to Multi vessel CAD, s/p CABG Day 10 * Continue aspirin, atorvastatin * Argatroban drip is stopped and patient is started on clopidogrel by Cardiology * Encouraged to use IS and to clear the secretions and use p.r.n. benzocaine spray for throat irritation * Monitor chest tube output * Strict I/O and daily weights Leukocytosis, secondary to Dexamethasone, resolved * His white cell count is normal * Ordered influenza and COVID-19 testing, tested negative * Ordered speech evaluation for suspected aspiration pneumonia * We will follow up with the labs and continue to monitor Lactic acidosis * Lactic acid today was elevated at 3.6 * Patient white count is 9.5k and is hemodynamically stable * We ordered UA with microscopy and culture * Will continue to monitor Hyperglycemia * Patient's blood glucose is elevated at 290s today * Patient is not diabetic and his Hba1c on admission was 5.8 * We will taper the decadron 4 mg in 2 days * Advised tos stop drinking ensure drinks containing added sugars HFrEF LV ejection fraction 25-30% by echo on 01/01/2025 * Patient LVEF is 25-30% by echocardiography, down from 50-55% on 12/27/24 * Lasix drip is weaned off and patient is started on Lasix 40 mg IV Q12H by Nephrology * Resume GDMT for heart failure when weaned from pressors and more stable * Strict I&O and daily weights 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, S/P LLE femoral thrombectomy * Patient has demarcating necrosis of the left toes and midfoot and is improving * Patient underwent left lower extremity femoral thrombectomy on 01/01, after finding monophasic waveforms be on popliteal artery by arterial Doppler * Continue atorvastatin and aspirin * Continue nitroglycerin paste as per completion engineer * can ambulate with the use of a CAM walking boot with physical therapy with a walker as per podiatry consult * Monitor leg perfusion, pulses, swelling, and discoloration Anemia, post CABG * Patient received 4 units of packed RBCs * Iron panel showed Iron 20, % Sat 5.5, TIBC 360 indicating Iron deficiency, received 2 doses of IV Venofer * Monitor CBC daily in the a.m. daily * Monitor for signs of bleeding Acute on chronic renal dysfunction * Patient has good urine output * Creatinine Improved from 6.6 to 5.9 * Monitor CBC and electrolytes in the a.m. daily * Avoid nephrotoxic agents New onset atrial fibrillation, not POA Amiodarone 200 mg p.o. as per Cardiology recommendation Currently in sinus rhythm GI prophylaxis with Protonix 40 mg IV Continue DVT prophylaxis with heparin 5000 SQ b.i.d. ATTESTATION BY PHYSICIAN I have seen and examined the patient. I reviewed the documentation, medical decision making, and treatment plan as noted by the resident provider above. I agree with the findings and plan of care. Arnulfo Rios MD, HARSHAVARDHA MD Jan 12, 2025 13:07
--- NOTE | 2025-01-12 17:46 | PN ---
[facility] CARDIOLOGY PROGRESS NOTE Date Patient Seen: Jan 12, 2025 Time of Visit: 17:45 Interval History: No acute events overnight. Renal function continues to improved, urine output overnight 900 mL, still no plans for hemodialysis, currently denying any cardiac symptoms or anginal equivalents, pending rehab placement Physical Examination: GENERAL: [No acute distress.] NECK: R CVC LUNGS: [ diminished inspiratory effort. No wheezes, or rhonchi.] HEART: [Normal rate and rhythm. Normal S1 and S2 without murmurs, gallop or rub.] VASC: [Peripheral pulses +1 bilaterally. blistering to distal left foot with ecchymoses to distal digits] ABD: soft, nontender SKIN: [ecchymoses, blistering to LLE distal digits. sensation and motor intact NEURO: [Awake, alert , moves all extremities.] Laboratory: [ ] Hematology Labs: Test 01/12/25 04:37 01/11/25 04:16 Range/Units White Blood Count 9.5 4.8-10.8 K/uL Red Blood Count 4.07 L 4.50-6.20 MIL/uL Hemoglobin 10.7 L 14.0-18.0 g/dL Hematocrit 32.7 L 42-54 % Mean Corpuscular Volume 80.3 79-99 fL Mean Corpuscular Hemoglobin 26.3 L 27.0-33.0 pg Mean Corpuscular Hemoglobin Concent 32.7 32.0-36.0 g/dL Red Cell Distribution Width 25.2 H 11.0-15.5 % Platelet Count 616 H 130-400 K/uL Mean Platelet Volume 11.8 H 7.5-10.5 fL Nucleated Red Blood Cells 0.0 0.0-0.19 % Red Blood Cell Morphology See comments Immature Granulocyte % (Auto) 0.6 0-1 % Neutrophils (%) (Auto) 88.1 H 40.0-77.0 % Lymphocytes (%) (Auto) 4.9 L 21.0-51.0 % Monocytes (%) (Auto) 6.3 3.0-13.0 % Eosinophils (%) (Auto) 0.0 0.0-8.0 % Basophils (%) (Auto) 0.1 0.0-5.0 % Neutrophils # (Auto) 7.7 1.8-7.7 K/uL Lymphocytes # (Auto) 0.4 L 1.0-4.8 K/uL Monocytes # (Auto) 0.6 0.1-1.0 K/uL Eosinophils # (Auto) 0.00 0.00-0.70 K/uL Basophils # (Auto) 0.01 0.00-0.20 K/uL Absolute Immature Granulocyte (auto 0.05 0-1 K/uL Chemistry Labs: Test 01/12/25 12:40 01/12/25 08:52 01/12/25 04:37 01/11/25 04:16 Range/Units Lactic Acid Level 3.6 H 0.8-2.5 mmol/L Procalcitonin 0.21 0.05-0.5 ng/mL Whole Blood Ketones Quantitative 0.1 0.0-0.6 mmol/L Sodium Level 133 L 136-145 mmol/L Potassium Level 3.2 L 3.5-5.1 mmol/L Chloride Level 97 L 101-111 mmol/L Carbon Dioxide Level 18 L 21-32 mmol/L Blood Urea Nitrogen 126 *H 7-18 mg/dL Creatinine 5.9 H 0.5-1.3 mg/dL Glomerular Filtration Rate Calc 11 >90 mL/min Random Glucose 297 H 70-105 mg/dL Total Calcium 8.0 L 8.5-10.1 mg/dL Total Bilirubin 0.3 0.2-1.0 mg/dL Aspartate Amino Transf (AST/SGOT) 33 10-37 U/L Alanine Aminotransferase (ALT/SGPT) 27 12-78 U/L Alkaline Phosphatase 112 50-136 U/L Total Protein 7.1 6.0-8.3 g/dL Albumin 2.0 L 3.5-5.0 g/dL Test 01/10/25 21:06 Range/Units Magnesium Level 2.40 1.80-2.40 mg/dL Diagnostics / Radiology: [Copy/Paste Echos/Imaging Report here] Impression and Plan: ACS-NSTEMI MVCAD s/p CABG with VG-RCA, VG-OM, TORRES-LAD and VG-distal LAD LLE ALI while IABP in place, status post femoral thrombectomy, placed on argatroban. New onset atrial fibrillation with rapid ventricular response, converted. Hypertension ICMP LVEF 25-30% Acute renal failure without dialysis #ACS-NSTEMI on presentation Patient presented as a transfer for admission due to NSTEMI Presenting hemoglobin was 7.1 g, underwent EGD was negative for active bleeding or ulcers Coronary angiogram revealing multivessel CAD CV surgery was consulted for CABG s/p 4 v CABG and insertion of aortic balloon pump with VG-RCA, VG-OM, TORRES-LAD and VG-distal LAD Removal of IABP 12/31 Defer the use of nephrotoxic medications due to worsening renal function Continue heparin infusion per protocol Continue [id number] mg daily, ASA 81 mg daily, Lopressor 50 mg every12 hours and atorvastatin 40 mg q.h.s. Rest of care by CV surgery #HFmrEF ICM-LVEF 25-30%- NYHA II Euvolemic and compensated on exam 2D echocardiogram (01/01/2025) LVEF 25-30%, hypokinetic anterior wall and apex. Strict I's and O's and daily weights. Urine output in the past 24 hours 900 mL, Continue Lasix 40 mg IV every 12 hours GDMT: Continue Lopressor 50 mg every12 hours Unable to optimize GDM T any further due to worsening renal function (nephrology is following) # paroxysmal atrial fibrillation Documented episode atrial fibrillation with RVR on 01/04/2025 Initially cardioverted with amiodarone bolus and infusion Current review of telemetry sinus rhythm with a heart rate of 77 beats per minute with no events overnight We will continue heparin infusion per protocol, we will recommend Eliquis once deemed safe by CV surgery Continue Lopressor 50 mg every 12 hours, amiodarone 200 mg daily Keep on telemetry, monitor/replace electrolytes as needed ( Mg >2 , K > 4 ) Thank you for this consult cardiology will continue to follow along Kane rivera MD ATTESTATION BY PHYSICIAN I have seen and examined the patient, reviewed the above documentation, participated in medical decision making, made necessary modifications, and agree with the treatment plan as documented by my mid-level provider above. MD IRASEMA Alas JAMES R MD Jan 12, 2025 17:46
[2025-01-13] VITALS (15 sets, daily range): BP systolic 122–145; BP diastolic 72–93; PULSE 72–87; RESP 18–20; TEMP 97.8–98.3; O2SAT 98–99
[2025-01-13 04:11] LABS: IMMATURE GRANULOCYTE ABSOLUTE 0.07 K/uL (0-1); NUCLEATED RED BLOOD CELLS 0.0 % (0.0-0.19); PLATELET COUNT (AUTO) 592 K/uL (130-400); RED BLOOD CELL COUNT(AUTO) 4.20 MIL/uL (4.50-6.20); RED CELL DISTRIBUTION WIDTH 25.2 % (11.0-15.5); WHITE BLOOD COUNT (AUTO) 10.8 K/uL (4.8-10.8)
[2025-01-13 04:35] LABS: CREATININE 5.2 mg/dL (0.5-1.3); GLOMERULAR FILTR. RATE CALC 12.0 mL/min (>90); GLUCOSE,RANDOM 161.0 mg/dL (70-105); SODIUM SERUM 134.0 mmol/L (136-145)
[2025-01-13 05:24] LABS: UREA NITROGEN, BLOOD 125.0 mg/dL (7-18)
[2025-01-13] MEDS: PoTASSium chl 10% ELIXIR 20MEQ 20 MEQ/15 ML UDCUP PO PRN (06:24)
--- NOTE | 2025-01-13 06:27 | PN ---
SUBJECTIVE: A 54-year-old diabetic male; acute renal failure, not receiving hemodialysis, BUN 125, creatinine 5.2. White count 10.8, H and H of 10.9 and 33.9, platelets 592. Afebrile, 97.9; pulse 76; respirations 18; blood pressure 144/72. The patient is currently receiving heparin, Plavix, vasopressin, and aspirin 81 mg. The patient is pending outpatient rehab placement. The patient has been followed for elevated lactic acid, anion gap metabolic acidosis. The patient is ambulating with a surgical shoe to the left foot. He has had coronary artery bypass grafting, 12/28/2024; removal of an intraaortic balloon pump with thrombectomy, 12/31/2024. Left lower extremity ischemia appears to be embolic in nature. He has pulses that are audible by Doppler on the left, pulses that are palpable on the right. He has acute on chronic combined heart failure with ejection fraction of 25%-30%, cardiorenal syndrome, acute renal failure, hypertension, anemia, hypokalemia. According to the nephrology service, there is no need for renal replacement at this point. OBJECTIVE: EXTREMITIES: On examination today, necrotic eschars that are dry to the entirety of digits 1, 2, 3, 4, and 5 on the left. Blistering lesions to the dorsal and plantar aspect of his forefoot bilaterally. Digits are cold to the touch. Pulses are audible by Doppler on the left side. ASSESSMENT: A 54-year-old male, status post thrombectomy, removal of an intraaortic balloon pump after four-vessel coronary artery bypass grafting, renal failure, new-onset atrial fibrillation, demarcating necrosis to all digits of the left in the presence of audible Doppler pulses to the anterior tibial and posterior tibial pulse on the left, hemorrhagic bullae to the dorsal and plantar aspect of his midfoot and forefoot on the left, acute renal failure being followed by Nephrology. No need for renal replacement therapy from their standpoint. The patient is being evaluated for outpatient placement. The patient ambulating with a surgical shoe on that left foot. PLAN: We will continue to monitor the patient closely for the ischemic changes to all digits of his left foot. He remains afebrile. His white count is within normal limits. He is currently not receiving antibiotic therapy. The patient may ambulate with physical therapy with a surgical shoe on that left side. There is no need for surgical intervention at this point to his left foot. TID: [id number] RECEIPT: [id number]
--- NOTE | 2025-01-13 07:10 | PN ---
[facility] CARDIOLOGY PROGRESS NOTE Date Patient Seen: Jan 13, 2025 Time of Visit: 07:07 Interval History: No acute events overnight. Renal function continues to improved, urine output overnight 900 mL, still no plans for hemodialysis, currently denying any cardiac symptoms or anginal equivalents, pending rehab placement Physical Examination: GENERAL: [No acute distress.] NECK: R CVC LUNGS: [ diminished inspiratory effort. No wheezes, or rhonchi.] HEART: [Normal rate and rhythm. Normal S1 and S2 without murmurs, gallop or rub.] VASC: [Peripheral pulses +1 bilaterally. blistering to distal left foot with ecchymoses to distal digits] ABD: soft, nontender SKIN: [ecchymoses, blistering to LLE distal digits. sensation and motor intact NEURO: [Awake, alert , moves all extremities.] Laboratory: [ ] Hematology Labs: Test 01/13/25 04:03 01/12/25 04:37 Range/Units White Blood Count 10.8 4.8-10.8 K/uL Red Blood Count 4.20 L 4.50-6.20 MIL/uL Hemoglobin 10.9 L 14.0-18.0 g/dL Hematocrit 33.9 L 42-54 % Mean Corpuscular Volume 80.7 79-99 fL Mean Corpuscular Hemoglobin 26.0 L 27.0-33.0 pg Mean Corpuscular Hemoglobin Concent 32.2 32.0-36.0 g/dL Red Cell Distribution Width 25.2 H 11.0-15.5 % Platelet Count 592 H 130-400 K/uL Mean Platelet Volume 11.2 H 7.5-10.5 fL Immature Granulocyte % (Auto) 0.6 0-1 % Neutrophils (%) (Auto) 80.5 H 40.0-77.0 % Lymphocytes (%) (Auto) 8.6 L 21.0-51.0 % Monocytes (%) (Auto) 10.2 3.0-13.0 % Eosinophils (%) (Auto) 0.0 0.0-8.0 % Basophils (%) (Auto) 0.1 0.0-5.0 % Neutrophils # (Auto) 8.7 H 1.8-7.7 K/uL Lymphocytes # (Auto) 0.9 L 1.0-4.8 K/uL Monocytes # (Auto) 1.1 H 0.1-1.0 K/uL Eosinophils # (Auto) 0.00 0.00-0.70 K/uL Basophils # (Auto) 0.01 0.00-0.20 K/uL Absolute Immature Granulocyte (auto 0.07 0-1 K/uL Nucleated Red Blood Cells 0.0 0.0-0.19 % White Cell Morphology Comment See comments Red Blood Cell Morphology See comments Chemistry Labs: Test 01/13/25 04:03 01/12/25 12:40 01/12/25 08:52 Range/Units Sodium Level 134 L 136-145 mmol/L Potassium Level 3.4 L 3.5-5.1 mmol/L Chloride Level 97 L 101-111 mmol/L Carbon Dioxide Level 21 21-32 mmol/L Blood Urea Nitrogen 125 *H 7-18 mg/dL Creatinine 5.2 H 0.5-1.3 mg/dL Glomerular Filtration Rate Calc 12 >90 mL/min Random Glucose 161 H 70-105 mg/dL Total Calcium 7.7 L 8.5-10.1 mg/dL Lactic Acid Level 3.6 H 0.8-2.5 mmol/L Procalcitonin 0.21 0.05-0.5 ng/mL Whole Blood Ketones Quantitative 0.1 0.0-0.6 mmol/L Diagnostics / Radiology: [Copy/Paste Echos/Imaging Report here] Impression and Plan: ACS-NSTEMI MVCAD s/p CABG with VG-RCA, VG-OM, TORRES-LAD and VG-distal LAD LLE ALI while IABP in place, status post femoral thrombectomy, placed on argatroban. New onset atrial fibrillation with rapid ventricular response, converted. Hypertension ICMP LVEF 25-30% Acute renal failure without dialysis #ACS-NSTEMI on presentation Patient presented as a transfer for admission due to NSTEMI Presenting hemoglobin was 7.1 g, underwent EGD was negative for active bleeding or ulcers Coronary angiogram revealing multivessel CAD CV surgery was consulted for CABG s/p 4 v CABG and insertion of aortic balloon pump with VG-RCA, VG-OM, TORRES-LAD and VG-distal LAD Removal of IABP 12/31 Defer the use of nephrotoxic medications due to worsening renal function Continue [id number] mg daily, ASA 81 mg daily, Lopressor 50 mg every12 hours and atorvastatin 40 mg q.h.s. Rest of care by CV surgery #HFmrEF ICM-LVEF 25-30%- NYHA II Euvolemic and compensated on exam 2D echocardiogram (01/01/2025) LVEF 25-30%, hypokinetic anterior wall and apex. Strict I's and O's and daily weights. Urine output in the past 24 hours 900 mL, Continue Lasix 40 mg po every 12 hours GDMT: Continue Lopressor 50 mg every12 hours Unable to optimize GDM T any further due to worsening renal function (nephrology is following) # paroxysmal atrial fibrillation Documented episode atrial fibrillation with RVR on 01/04/2025 Initially cardioverted with amiodarone bolus and infusion Current review of telemetry sinus rhythm with a heart rate of 77 beats per minute with no events overnight we will recommend Eliquis once deemed safe by CV surgery Continue Lopressor 50 mg every 12 hours, amiodarone 200 mg daily Keep on telemetry, monitor/replace electrolytes as needed ( Mg >2 , K > 4 ) Thank you for this consult cardiology will continue to follow along Nilsa VILLALPANDO,NILSA [place] MD Jan 13, 2025 07:10
--- NOTE | 2025-01-13 09:03 | PN ---
SUBJECTIVE: The patient is postoperative day #16 from a coronary artery bypass grafting. The patient has been slowly rehabbing due to ischemic changes to his left toe and foot. He otherwise offers no complaints. OBJECTIVE: GENERAL: He is afebrile. VITAL SIGNS: Stable. HEENT: Normocephalic, atraumatic. He is off of oxygen. HEART: His heart rate is controlled. CHEST: His sternal wound is clean, dry, and intact. Chest tubes are out. ABDOMEN: Soft and nontender. EXTREMITIES: He has a Kerlix wrap on his left foot where he has ulcers and dry gangrene of his toes. ASSESSMENT AND PLAN: * Status post coronary artery bypass grafting. Continue aspirin, Lasix, and metoprolol. Continue sternal precautions and cardiac rehab. Pursuing senior care facility, however, the patient would be a arnaldo case. * History of atrial fibrillation. Continue amiodarone in addition to the metoprolol. May begin Eliquis. * Hypercholesterolemia. Lipitor 40 mg p.o. at bedtime, low cholesterol, cardiac diet. * Left lower extremity ischemia. Continue wound care. The patient will eventually need an angiogram once he recovers from his current cardiac surgery. TID: [id number] RECEIPT: [id number]
--- NOTE | 2025-01-13 09:40 | PN ---
FOLLOWUP PROGRESS NOTE SUBJECTIVE: A 54-year-old male who has had a prolonged hospital course. The patient with a history of coronary artery disease status post CABG. He has had acute renal failure postoperatively and creatinine continues to slowly improve. The patient has been transferred out to the medical floor and he is being seen as a followup visit for all of the above. REVIEW OF SYSTEMS: GENERAL: He is feeling improved. HEENT: No change in vision. No change in hearing. CARDIOVASCULAR: There are no current chest pains or palpitations. PULMONARY: He denies any shortness of breath. GASTROINTESTINAL: He is tolerating a diet. MUSCULOSKELETAL: Complains of weakness. PHYSICAL EXAMINATION: VITAL SIGNS: Blood pressure 135/80, pulse 80. He is afebrile. GENERAL: Chronically ill male, much older than appearing. HEENT: Head is atraumatic. Pupils are equal, round, and reactive to light. Oropharynx is without exudate. Nares clear. NECK: There is no JVP. There is no thyromegaly. No mass. CARDIOVASCULAR: Regular. There is no S3, S4, or gallop. LUNGS: Coarse with equal thoracic movement. ABDOMEN: Soft, nondistended, and nontender. EXTREMITIES: No clubbing, no cyanosis. NEUROLOGICAL: He is awake. He is alert. LABORATORY DATA: Sodium 134, potassium 3.4, BUN 125, creatinine is 5, hemoglobin 10, hematocrit 33. IMPRESSION: * Acute renal failure. * Coronary artery disease status post CABG. * Diabetes mellitus. * Hypertension. PLAN: The patient's creatinine continues to slowly improve. The patient's electrolytes have all been aggressively repleted. Blood pressure is under adequate control. We will continue to follow the patient closely. The patient is being seen by case management for final disposition. We will follow closely. TID: [id number] RECEIPT: [id number]
[2025-01-13 10:39] LABS: APPEARANCE,URINE CLEAR (CLEAR); GLUCOSE, URINE (UA) 300 mg/dL (NEGATIVE); LEUKOCYTE ESTERASE ,URINE NEGATIVE Leu/uL (NEGATIVE); NITRATE,URINE NEGATIVE (NEGATIVE); OCCULT BLOOD,URINE +- (TRACE) (NEGATIVE)
[2025-01-13 10:43] LABS: SQUAMOUS EPITHELIAL CELL,UR RARE /HPF (0-2)
--- NOTE | 2025-01-13 10:49 | PN ---
[facility] PROGRESS NOTE Date of Service: Jan 13, 2025 Time of Service: 10:43 SUBJECTIVE: This is a 54-year-old male who presented to [facility] with a non-STEMI. He underwent left heart catheterization which showed severe multi-vessel coronary artery disease with mid to apical inferior hypokinesis, LVEF 45-50%. He underwent echocardiogram 12/19/2024 which showed an ejection fraction of 55- 60%, mild LVH, normal-sized left atrium, mild mitral valve regurgitation and mild tricuspid valve regurgitation. He was transferred to [facility] for CABG. 12/25 patient remains admitted to the PCU, case discussed with the RN, no acute events overnight, he denied chest pain, shortness shortness for breath, no nausea, no vomiting, no abdominal discomfort. Cardiology input noted and appreciated, patient to continue aspirin 81 mg p.o. daily and atorvastatin 40 mg p.o. daily. Continue metoprolol tartrate 25 mg p.o. b.i.d.. Pending evaluation by CT surgery for consideration for CABG. Discussed with the patient. 12/26 patient remains admitted to the PCU, case discussed with the RN, no acute events overnight, the time of my visit the patient is comfortably in bed, alert oriented x3, eating breakfast, tolerating well, denies nausea, no vomiting, no abdominal discomfort, he denies chest pain, no shortness a breath. Remains on aspirin 81 mg p.o. daily, atorvastatin and metoprolol 25 mg p.o. b.i.d.. Pending evaluation by CT surgery for consideration of CABG. 12/27 patient is seen and examined at bedside, case discussed with the RN, no acute events overnight, currently the patient NPO, scheduled for CABG today by Cardiothoracic surgeon. We will continue to follow. 12/28 patient is seen and examined at bedside, case discussed with the RN, no acute events overnight, currently the patient NPO, scheduled for CABG today by Cardiothoracic surgeon. We will continue to follow. 12/29 patient is seen and examined at bedside, remains admitted to the ICU, postoperative day 1., status post CABG 12/28/2024, patient on insulin drip, nitroglycerin drip, alert oriented x3 following commands, however was mildly agitated earlier this morning, motion with the RN started on Precedex. Patient with chest tube in place. Further recommendations per Cardiothoracic surgeon. 12/30 patient remains admitted to the ICU, case discussed with the RN, patient remains confused, trying to pull his IV lines, remains on Precedex. Throughout the balloon pump in place, just to be breath, remains on epinephrine, Levophed, Lasix drip, dobutamine drip. Creatinine today at 3.0. Nephrology consultation requested, we will follow input and recommendation. Continue to monitor liver enzymes in a.m., follow ammonia level (at the time of my dictation less than 10). Continue to follow critical care input and recommendation. Prognosis remains guarded. 12/31 54-year-old male who was transferred from [facility] with a non- STEMI. He underwent left heart catheterization which showed severe multi-vessel coronary artery disease with mid to apical inferior hypokinesis, LVEF 45-50%. He underwent echocardiogram 12/19/2024 which showed an ejection fraction of 55- 60%, mild LVH, normal-sized left atrium, mild mitral valve regurgitation and m ild tricuspid valve regurgitation. He was transferred to [facility] for CABG. Cardiothoracic surgeon consultation requested, patient underwent CABG 12/28/2024. Continue to follow Cardiothoracic input and recommendations. Patient has been mildly confused post procedure, started on Precedex. 01/01 54-year-old male who was transferred from [facility] with a non- STEMI. He underwent left heart catheterization which showed severe multi-vessel coronary artery disease with mid to apical inferior hypokinesis, LVEF 45-50%. He underwent echocardiogram 12/19/2024 which showed an ejection fraction of 55- 60%, mild LVH, normal-sized left atrium, mild mitral valve regurgitation and mild tricuspid valve regurgitation. He was transferred to [facility] for CABG. Cardiothoracic surgeon consultation requested, patient underwent CABG 12/28/2024. At the time of my visit resting comfortably in bed, off Precedex, following commands, status post interval removal of intra-aortic balloon pump yesterday, remains on dobutamine and nitroglycerin drip as well as argatroban. Continue to follow critical Care and Cardiothoracic input and recommendations. 01/02/25: Patient was evaluated at the bedside. Today is postop Day 5 and he is recovering well. Patient underwent thrombectomy in the femoral artery of left lower extremity and removal of intra-aortic balloon pump yesterday. Patient has mottled appearance in the left great toe and dorsalis pedis pulsations are present. His chest tube output was 320 mL over the last 24 hours. His stool was positive for occult blood and a GI consult has been placed. Cardiology advised to continue the current treatment. Patient is weaned off Levophed and is currently on Lasix, dobutamine, nitroglycerin, and argatroban drips. A swallow test will be performed today to evaluate the need for removing NG tube. 01/03/25: Patient was evaluated at the bedside, this is postop day 6 and is recovering well. Patient has mottled appearance in the left great toe extending into all the digits. Dorsalis pedis pulsations were diminished with palpation but detected on Doppler. His chest tube output was 310 mL today. A GI consult was placed for occult blood however no intervention was recommended and advised to continue Protonix 40 mg. Nephrology recommended no renal replacement as alicia ent has good urine output,3 L today and is responding well to diuresis. Patient is continued on Lasix, dobutamine, nitroglycerin, and argatroban drips. NG tube was removed and patient was started on pureed heart healthy diet as tolerated. 01/04/2025: Patient was evaluated at the bedside, this is postop day 7. Patient had an episode of AFib with rapid ventricular response this morning and was cardioverted with amiodarone and continued on drip. Patient's left leg discoloration has improved, but still has diminished pulses only detected by Doppler. His chest tube output is 140 mL. Patient's ERICK has been worsening with creatinine 7.8 today however he has adequate urine output, 3.5 L today. Cardiology recommended to reduce Lasix drip to 2.5 and nephrology advised that patient's creatinine is stabilizing and renal function will improve in the next few days. Patient is still continuing on argatroban, nitro, and dobutamine drips. Otherwise patient has been recovering well tolerating pureed food and only complains of occasional throat pain due to cough. He was encouraged to cough to clear the chest secretions and use p.r.n. benzocaine spray for relief. His chest x-ray shows clearing pleural effusion and pulmonary edema. 01/05/2025: Patient was evaluated at the bedside and this is postop day. Patient has been in sinus rhythm since the AFib episode this morning. IV amiodarone was stopped and transitioned to p.o. 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 Molder Trimmer recommended applying nitroglycerin paste and and covered it in dressing. Patient's ERICK continues to worsen, creatinine 8.2 today. However he is maintaining a good urine output, 2500 today. He has been weaning of Lasix drip. Patient has been encouraged to use incentive spirometry and cough as tolerated to clear the chest secretions. Chest x-ray showed no evidence of pulmonary venous congestion today. 01/06/2025: Patient was evaluated at the bedside, he was sitting comfortably in his chair. Patient has been in sinus rhythm. Patient continues on argatroban, Lasix, and dobutamine drips. Patient's ERICK seemed to be stabilizing his creati nine is 8.3 compared to 8.2 yesterday. Patient is maintaining good urine output, 2L in the last 24 hours. Patient's left foot was covered in dressing. Dr. Persaud evaluated the patient today and recommended walking boot with dressing if he is cleared by Cardiology for ambulation. His demarcating necrosis of the distal aspects of digits 1, 2, 3, and 4 on the left side seemed to be improving. Dr. Persaud recommended to continue nitroglycerin paste. Patient encouraged to use incentive spirometry and cough and was asked to use benzocaine for relief from throat pain. 01/07/2025 - patient seen at bedside in room 215 , patient is alert awake and oriented. Patient continues to be on argatroban, Lasix drips, his acute kidney injury possibly secondary to ATN secondary to hypotensive episode seems resolving while maintaining good urine output. Patient still complains of cough, pain in the left lower extremity. Patient's phosphorus trended down to 6.8 And anion gap closed down to 12 today. Patient currently hemodynamically stable and we will continue to monitor closely. 01/08/2025 Patient is seen and examined at the bedside. Awake alert and oriented and sitting comfortably in the chair. Argatroban drip is discontinued and patient is started on Heparin for DVT prophylaxis and Plavix 75 mg [for NSTEMI] by cardiology. Vitals blood pressure ranging in 110/80s, pulse rate 80s, respiratory rate in 20s to 30s, SpO2 greater than 95% on room air. Patient had an episode of AFib today. Currently in sinus rhythm. Chest tube and arterial line are discontinued as per CT is recommendations. Urine output 1.8 L. He still complains of productive cough, poor appetite. Labs hemoglobin stable at 10.1, potassium low at 3.1, BUN 93, creatinine improved from 7.9-7.5. Chest x-ray revealed no evidence of airspace consolidation or pulmonary venous congestion. 01/09/25: Patient was seen and evaluated at the bedside. He was awake, alert, and oriented to time place and person. Patient had been in sinus rhythm and had no acute events overnight. His vitals have been stable and only complains of throat pain. His creatinine is improving, 7.4 from 7.5 yesterday. He is maintaining good urine output of 2 L[place] [id number] today and is receiving Zosyn. His chest x-ray showed trace left pleural effusion. Still has productive cough and a poor appetite. Speech evaluation was placed for tomorrow for suspected aspiration. Testing for influenza and COVID-19 were placed. 01/10/25 patient was seen patient was sitting in chair receiving his neb treatment. Patient denied chest pain or shortness for breath. 01/11/25: Patient was seen and evaluated at the bedside in room 205. Patient was downgraded to medical floor and is recovering well from his surgery. Improving in his creatinine is at 6.6 from 6.9 yesterday. Is maintaining a good urine output of 1975 mL yesterday. His demarcating necrosis of the left foot is improving with gradually receding necrotic tissue. His bilateral pedal pulses are present with Doppler. We will have speech therapist evaluate with barium swallow for consideration of advancing diet from pureed food. 01/12/25: Patient was seen and evaluated at the bedside in room 205. Patient was sitting comfortably in the chair. Patient had no acute events overnight. Patient reports he is feeling much better and denies chest pain, shortness of breath, dizziness. Patient blood sugars were high today at 295. Patient was noted to be drinking ensure protein drinks containing added sugars with his breakfast. He has been also taking 7 doses of Decadron 4mg so far. Patient was advised not to drink the ensure drinks for now and we will taper the Decadron in 2 days. His lactic acid is elevated at 3.6 and has an anion gap metabolic acidosis. We will order a UA with microscopy and culture. Case management is working on the placement to a SNF and will follow their recommendations. 01/13/2025: Patient was evaluated at the bedside in room 205. Patient was lying comfortably in his bed with head end elevated. He had no acute events overnight. He is currently being tapered off dexamethasone. Patient denies chest pain, shortness of breath, dizziness and only has a mild sore throat. Blood glucose was controlled and 160s this morning. Patient was asked to drink ensure and instead we will be given glucerna. His demarcating necrosis of the left foot is improving and only has a couple of fluid-filled blisters on the toes. Patient's lactic acid today is a 3.7. Patient has normal white blood cell count, normal procalcitonin and has no fever. Blood and urine cultures results are still pending. Patient is pending rehab placement. REVIEW OF SYSTEMS CONSTITUTIONAL: Denies fevers, chills, or night sweats. No unintentional weight loss reported., Throat irritation NEUROLOGICAL: Denies headache, amaurosis fugax, motor weakness, sensory deficit, vertigo/spinning sensation, gait abnormalities, or tremors. CARDIOVASCULAR: Denies any exertional angina, dyspnea on exertion, orthopnea, paroxysmal nocturnal dyspnea, palpitations, life-threatening arrhythmias, claudication. PULMONARY: Denies any shortness of breath, hemoptysis, pleuritic chest pain. Patient has cough with clear sputum, improving GASTROINTESTINAL: Denies any type of dysphagia to either liquids or solids. Denies nausea, vomiting, pyrosis, early satiety, abdominal pain, diarrhea, constipation, or changes in stool consistency or caliber. GENITOURINARY: Denies frequency, urgency, nocturia, hematuria or incontinence. Andres removed PHYSICAL EXAM GENERAL APPEARANCE: Patient is alert, oriented, and comfortable lying down and sitting. NECK: Supple. No JVD. CHEST: Normal chest expansion. Telemetry in place. LUNGS: Absence of any rales, rhonchi or any wheezing. Chest tube in place. CARDIOVASCULAR: Regular. S1 and S2 normal. No appreciable rubs, murmurs or gallops. ABDOMEN: Soft, nontender, and nondistended. There is no rebound, voluntary guarding, or rigidity. : Deferred. No Andres. EXTREMITIES: LLE pulses present per Doppler, left toes and foot covered in dres sing. Vital Signs (last 8hr) Date Time Temp Pulse Resp B/P (MAP) Pulse Ox O2 Delivery O2 Flow Rate FiO2 01/13/25 08:23 97.9 82 18 135/80 100 Room Air 01/13/25 08:00 98 Nasal Cannula* 2 28 01/13/25 07:20 83 20 N/A Room Air 21 01/13/25 07:19 83 20 01/13/25 04:00 97.9 76 18 144/72 94 Room Air LABS: Laboratory: Test 01/13/25 09:00 01/13/25 07:38 01/13/25 04:03 01/12/25 12:40 Range/Units Urine Color LIGHT-YELLOW YELLOW Urine Appearance CLEAR CLEAR Urine pH 6.0 5.0-8.0 Urine Specific [place] 1.013 1.001-1.031 Urine Protein 20 H NEGATIVE mg/dL Urine Glucose (UA) 300 H NEGATIVE mg/dL Urine Ketones NEGATIVE NEGATIVE mg/dL Urine Occult Blood +- (TRACE) H NEGATIVE Urine Nitrate NEGATIVE NEGATIVE Urine Bilirubin NEGATIVE NEGATIVE mg/dL Urine Urobilinogen 0.2 0.2-1.0 mg/dL Urine Leukocyte Esterase NEGATIVE NEGATIVE Jorge/uL Lactic Acid Level 3.7 H 0.8-2.5 mmol/L White Blood Count 10.8 4.8-10.8 K/uL Red Blood Count 4.20 L 4.50-6.20 MIL/uL Hemoglobin 10.9 L 14.0-18.0 g/dL Hematocrit 33.9 L 42-54 % Mean Corpuscular Volume 80.7 79-99 fL Mean Corpuscular Hemoglobin 26.0 L 27.0-33.0 pg Mean Corpuscular Hemoglobin Concent 32.2 32.0-36.0 g/dL Red Cell Distribution Width 25.2 H 11.0-15.5 % Platelet Count 592 H 130-400 K/uL Mean Platelet Volume 11.2 H 7.5-10.5 fL Immature Granulocyte % (Auto) 0.6 0-1 % Neutrophils (%) (Auto) 80.5 H 40.0-77.0 % Lymphocytes (%) (Auto) 8.6 L 21.0-51.0 % Monocytes (%) (Auto) 10.2 3.0-13.0 % Eosinophils (%) (Auto) 0.0 0.0-8.0 % Basophils (%) (Auto) 0.1 0.0-5.0 % Neutrophils # (Auto) 8.7 H 1.8-7.7 K/uL Lymphocytes # (Auto) 0.9 L 1.0-4.8 K/uL Monocytes # (Auto) 1.1 H 0.1-1.0 K/uL Eosinophils # (Auto) 0.00 0.00-0.70 K/uL Basophils # (Auto) 0.01 0.00-0.20 K/uL Absolute Immature Granulocyte (auto 0.07 0-1 K/uL Nucleated Red Blood Cells 0.0 0.0-0.19 % White Cell Morphology Comment See comments Sodium Level 134 L 136-145 mmol/L Potassium Level 3.4 L 3.5-5.1 mmol/L Chloride Level 97 L 101-111 mmol/L Carbon Dioxide Level 21 21-32 mmol/L Blood Urea Nitrogen 125 *H 7-18 mg/dL Creatinine 5.2 H 0.5-1.3 mg/dL Glomerular Filtration Rate Calc 12 >90 mL/min Random Glucose 161 H 70-105 mg/dL Total Calcium 7.7 L 8.5-10.1 mg/dL Procalcitonin 0.21 0.05-0.5 ng/mL Test 01/12/25 08:52 01/12/25 04:37 Range/Units Whole Blood Ketones Quantitative 0.1 0.0-0.6 mmol/L Red Blood Cell Morphology See comments Current Medications Medications (Trade) Dose Ordered Sig/Mila Route PRN Reason Start Time Stop Time Status Last Admin Dose Admin Acetaminophen (TYLenol 325MG TAB) 650 mg Q4H PRN PO Temp >38.3C(AFTER EXTUBATION) 12/28/24 14:00 01/27/25 13:59 Acetaminophen (TYLenol 325MG TAB) 650 mg Q6H PRN PO MILD PAIN (1-3) 12/24/24 01:30 12/28/24 13:57 DC 12/27/24 23:45 650 MG Acetaminophen (TYLenol 325MG TAB) 650 mg Q6H PRN PO TEMPERATURE GREATER THAN 101.5 12/24/24 03:00 12/28/24 14:10 DC Acetaminophen (TYLenol 325MG TAB) 650 mg Q6H PRN PO MILD PAIN (1-3) 12/28/24 14:00 01/27/25 13:59 01/05/25 20:03 650 MG Acetaminophen (TYLenol 650MG SUPPOSITORY) 650 mg Q4H PRN RC Temp >38.3C WHILE INTUBATED 12/28/24 14:00 01/07/25 19:35 DC Acetaminophen (acetaMINOPHEN) 1,000 mg Q6H6 IV 12/28/24 18:00 12/29/24 17:59 DC 12/29/24 17:27 1,000 MG Acetaminophen (acetaMINOPHEN) 1,000 mg Q6H6 IVPB 12/30/24 00:00 12/31/24 20:14 DC 12/30/24 18:16 1,000 MG Albumin Human 250 ml @ 0 mls/hr AD PRN IV IF HEMODYNAMICALLY UNSTABLE 12/28/24 14:00 12/29/24 09:28 DC 12/29/24 09:28 250 MLS/HR Albuterol (DUOneb) 1 UDVIAL [id number] IH 01/01/25 18:00 01/01/25 15:25 DC Albuterol Sulfate (Proventil 0.083% 2.5mg/3ml) 2.5 mg ONCE STAT IH 12/30/24 10:22 12/30/24 10:32 DC 12/30/24 10:43 2.5 MG Aminocaproic Acid 11692 mg/Sodium Chloride 310 ml @ 25 mls/hr AD IV 12/28/24 14:00 12/28/24 14:14 DC Aminocaproic Acid 08428 mg/Sodium Chloride 480 ml @ 0 mls/hr AD PRN IV BLEEDING CONTROL 12/27/24 11:00 01/07/25 19:35 DC Amiodarone HCl (pacERONE 200MG) 200 mg DAILY PO 01/05/25 09:00 02/04/25 08:59 01/13/25 10:03 200 MG Amiodarone HCl 150 mg/Dextrose 103 ml @ 618 mls/hr ONCE IV 01/04/25 06:30 01/04/25 06:21 DC Amiodarone HCl 360 mg/Dextrose 207.2 ml @ 33.3 mls/hr AD IV 01/04/25 06:30 01/04/25 06:21 DC Amiodarone HCl 540 mg/Dextrose 310.8 ml @ 16.7 mls/hr [id number] IV 01/04/25 06:30 01/09/25 09:26 DC 01/04/25 13:01 16.7 MLS/HR Apixaban (EliquIS 2.5 mg) 2.5 mg BID PO 01/13/25 09:00 02/12/25 08:59 Apixaban (EliquIS) 5 mg HS PO 01/07/25 21:00 01/07/25 19:35 DC Argatroban 250 mg/ Sodium Chloride 250 ml @ 0 mls/hr PROTOCOL IV 12/31/24 16:30 01/07/25 19:30 DC 01/07/25 16:32 4.17 MLS/HR Aspirin (Aspirin 81mg Ec Tab) 81 mg DAILY PO 12/24/24 09:00 01/23/25 08:59 01/13/25 10:03 81 MG Atorvastatin Calcium (LIPItor 40MG) 40 mg HS PO 12/24/24 21:00 01/01/25 11:16 DC 12/31/24 20:44 40 MG Atorvastatin Calcium (LIPItor 40MG) 40 mg HS PO 01/07/25 21:00 02/06/25 20:59 01/12/25 21:12 40 MG Benzocaine (Cepacol Sore Throat Lozenge) 1 each Q4H PRN MM SORE THROAT 01/03/25 13:30 02/02/25 13:29 01/06/25 11:16 1 EACH Bisacodyl (DulcoLAX) 10 mg DAILY PRN RC CONSTIPATION - MOM INEFFECTIVE 12/29/24 14:00 01/28/25 13:59 12/30/24 11:05 10 MG Calcium Gluconate 1 gm/Sodium Chloride 60 ml @ 200 mls/hr AD PRN IV HYPOCALCEMIA 12/28/24 14:00 01/27/25 13:59 01/01/25 01:52 200 MLS/HR Cefazolin Sodium (ANCEF 1 gm vial) 2 gm ONCALL IVP 12/26/24 16:30 12/26/24 16:28 DC Cefazolin Sodium (Ancef) 2 gm ONCALL PRN IVP SURGERY 12/26/24 16:30 12/28/24 13:57 DC Cefazolin Sodium (Ancef) 2 gm Q8H IVPB 12/28/24 19:00 12/29/24 11:01 DC 12/29/24 11:04 2 GM Clopidogrel Bisulfate (plaVIX 75MG) 75 mg DAILY PO 01/08/25 09:00 02/07/25 08:59 01/13/25 10:03 75 MG Dexamethasone (DeCADron 4 mg TAB) 4 mg DAILY PO 01/13/25 09:00 01/12/25 17:40 DC Dexamethasone (DeCADron 4 mg TAB) 6 mg DAILY PO 01/09/25 09:00 01/09/25 08:06 DC Dexamethasone (DeCADron 4 mg TAB) 10 mg BID PO 01/09/25 09:00 01/12/25 13:07 DC 01/12/25 09:24 10 MG Dexamethasone (DeCADron 4 mg TAB) 10 mg DAILY PO 01/13/25 09:00 01/15/25 08:59 01/13/25 10:03 10 MG Dexmedetomidine/ Sodium Chloride (PRECEdex 400MCG/ 100ML-NS) 400 mcg PROTOCOL IV 12/28/24 14:00 12/29/24 13:59 DC 12/29/24 12:16 400 MCG Dexmedetomidine/ Sodium Chloride (PRECEdex 400MCG/ 100ML-NS) 400 mcg PROTOCOL IV 12/29/24 18:00 01/28/25 17:59 12/31/24 06:05 400 MCG Dextrose (D50w) 50 ml AD PRN IV HYPOGLYCEMIA PROTOCOL 12/28/24 14:00 01/27/25 13:59 Dextrose (D50w) 50 ml ONCE STAT IV 12/30/24 11:36 12/30/24 11:39 DC 12/30/24 11:45 50 ML Dextrose/Sodium Chloride 1,000 ml @ 50 mls/hr Q20H IV 12/30/24 11:30 01/01/25 16:17 DC 01/01/25 02:09 50 MLS/HR Dobutamine HCl/ Dextrose 250 ml @ 0 mls/hr PROTOCOL IV 12/29/24 14:00 01/08/25 15:43 DC 01/05/25 08:48 4.1 MLS/HR Docusate Sodium (COLace 100MG CAP) 100 mg BID PO 12/28/24 21:00 12/29/24 08:01 DC 12/28/24 20:53 100 MG Docusate Sodium (COLace LIQUID 100MG/10ML) 100 mg BID PO 12/29/24 08:00 01/28/25 07:59 01/13/25 10:02 100 MG Enoxaparin Sodium (Lovenox) 30 mg DAILY SQ 12/31/24 09:00 12/31/24 16:12 DC Enoxaparin Sodium (Lovenox) 30 mg DAILY SQ 01/08/25 09:00 01/07/25 20:03 DC Epinephrine HCl 10 mg/Sodium Chloride 250 ml @ 0 mls/hr AD PRN IV TITRATE 12/27/24 11:00 01/26/25 10:59 12/30/24 04:29 0 MLS/HR Epinephrine HCl 10 mg/Sodium Chloride 250 ml @ 0 mls/hr AD PRN IV POST-OP CARDIOVASCULAR ORDERS 12/28/24 14:00 12/28/24 14:14 DC Famotidine (Pepcid 20mg Vial) 20 mg BID IV 12/28/24 21:00 12/31/24 20:20 DC 12/31/24 08:51 20 MG Famotidine (Pepcid 20mg Vial) 20 mg Q48H IV 01/02/25 09:00 01/02/25 04:51 DC Famotidine (Pepcid 20mg Tab) 20 mg DAILY PO 12/24/24 09:00 12/28/24 13:54 DC 12/26/24 10:19 20 MG Furosemide (LASix 20MG TAB) 20 mg Q12H PO 12/30/24 09:00 12/30/24 08:34 DC Furosemide (LASix 20MG VIAL) 20 mg Q12H IV 12/29/24 09:00 12/30/24 08:34 DC 12/29/24 09:20 20 MG Furosemide (LASix 40MG TAB) 40 mg BID@09,17 PO 01/10/25 17:00 02/09/25 16:59 01/13/25 10:03 40 MG Furosemide (LASix 40MG VIAL) 40 mg Q12H IV 01/08/25 20:00 01/10/25 09:57 DC 01/09/25 21:05 40 MG Furosemide 100 mg/ Sodium Chloride 100 ml @ 0 mls/hr PROTOCOL IV 12/29/24 14:30 01/08/25 13:45 DC 01/07/25 08:41 0 MLS/HR Glucagon (Glucagon 1mg Kit) 1 mg AD PRN IM HYPOGLYCEMIA PROTOCOL 12/28/24 14:00 01/27/25 13:59 Guaifenesin (MUCinex 600 MG TABLET.ER) 600 mg BID PRN PO COUGH 01/08/25 09:30 02/07/25 09:29 Guaifenesin/ Dextromethorphan (RobiTUSSin DM 200/20MG 10ML) 10 ml Q4H PRN PO COUGH 01/03/25 16:30 01/08/25 09:29 DC 01/07/25 08:25 10 ML Heparin Sodium (Porcine) (HEParin 5,000 UNIT VIAL) *calculation based on ACTUAL B... AD PRN IV HEPARIN PROTOCOL 12/24/24 02:30 12/28/24 13:54 DC 12/24/24 17:32 5,000 UNIT Heparin Sodium (Porcine) (HEParin 5,000 UNIT VIAL) 5,000 unit BID SQ 01/08/25 09:00 01/13/25 07:22 DC 01/12/25 21:40 5,000 UNIT Heparin Sodium/ Dextrose 250 ml @ 0 mls/hr Q6H IV 12/24/24 02:30 12/28/24 13:54 DC 12/27/24 17:04 11.3 MLS/HR Hydralazine HCl (APRESOLine 20MG INJ) 10 mg Q6H PRN IV For:SBP above 160;DBP above 90 12/24/24 03:00 12/28/24 13:54 DC Insulin Human Regular (humuLIN R 100 UNIT/ML 3ML) 10 unit ONCE STAT IV 12/30/24 11:42 12/30/24 11:45 DC 12/30/24 12:01 10 UNIT Insulin Human Regular (humuLIN R 100 UNIT/ML 3ML) 10 unit ONCE STAT SQ 12/30/24 11:36 12/30/24 11:43 DC Insulin Human Regular 100 unit/ Sodium Chloride 100 ml @ 0 mls/hr AD IV 12/28/24 14:00 12/29/24 17:55 DC 12/28/24 17:09 5 MLS/HR Ipratropium [place] (AtrovENT UD) 0.5 mg [id number] IH 12/30/24 12:00 01/29/25 11:59 01/13/25 07:18 0.5 MG Lactulose (Constulose 20gm/ 30ml Udcup) 20 gm BID PRN PO CONSTIPATION 12/24/24 03:00 12/28/24 13:54 DC 12/26/24 21:30 20 GM Lactulose (Constulose 20gm/ 30ml Udcup) 20 gm BID PRN PO CONSTIPATION 12/28/24 14:00 01/27/25 13:59 12/30/24 07:50 20 GM Lidocaine HCl/ Dextrose 250 ml @ 0 mls/hr AD PRN IV TITRATE 12/28/24 22:30 12/29/24 16:00 DC 12/29/24 06:53 15 MLS/HR Magnesium Hydroxide (Milk Of Magnesium 30ml) 30 ml DAILY PRN PO CONSTIPATION 12/28/24 14:00 01/27/25 13:59 12/30/24 10:18 30 ML Magnesium Sulfate 50 ml @ 12.5 mls/hr AD PRN IV MAG LEVEL LESS THAN 2.0 12/28/24 14:00 01/12/25 07:16 DC 12/28/24 18:42 12.5 MLS/HR Magnesium Sulfate 50 ml @ 0 mls/hr PROTOCOL PRN IV MAGNESIUM PROTOCOL 12/26/24 15:00 12/28/24 14:10 DC Magnesium Sulfate 50 ml @ 0 mls/hr PROTOCOL PRN IV MAGNESIUM PROTOCOL 01/12/25 07:30 02/11/25 07:29 Metolazone (zarOXOlyn) 5 mg ONCE PO 12/31/24 12:00 12/31/24 20:18 DC 12/31/24 12:01 5 MG Metolazone (zarOXOlyn) 5 mg ONCE PO 01/01/25 16:30 01/02/25 16:29 DC 01/01/25 16:53 5 MG Metoprolol Tartrate (loprESSOR) 12.5 mg BID PO 12/30/24 09:00 01/04/25 08:51 DC 01/03/25 20:09 12.5 MG Metoprolol Tartrate (loprESSOR) 25 mg BID PO 12/25/24 21:00 12/28/24 13:54 DC 12/28/24 09:28 25 MG Metoprolol Tartrate (loprESSOR) 25 mg TID PO 01/04/25 09:00 01/06/25 13:08 DC 01/06/25 09:27 25 MG Metoprolol Tartrate (loprESSOR) 50 mg BID PO 01/06/25 21:00 02/05/25 20:59 01/13/25 10:03 50 MG Morphine Sulfate (morPHINE 2MG SYG) 0.5 mg Q2H PRN IV MODERATE PAIN (4-6) 12/28/24 14:00 12/29/24 13:59 DC Morphine Sulfate (morPHINE 2MG SYG) 1 mg Q2H PRN IV SEVERE PAIN (7-10) 12/28/24 14:00 12/29/24 13:59 DC 12/28/24 17:05 1 MG Morphine Sulfate (morPHINE 2MG SYG) 2 mg Q4H PRN IVP SEVERE PAIN (7-10) 12/24/24 03:00 12/28/24 13:54 DC 12/26/24 02:43 2 MG Nitroglycerin (Nitroglycerin 1gm Oint) 0.5 inch Q8H5 TD 12/24/24 01:30 12/28/24 13:54 DC 12/27/24 12:57 0.5 INCH Nitroglycerin (Nitroglycerin 1gm Oint) 1 inch Q8H TD 01/04/25 15:00 02/03/25 14:59 01/13/25 06:25 1 INCH Nitroglycerin/ Dextrose 0 ml @ 0 mls/hr AD IV 12/28/24 14:00 12/31/24 14:00 DC Nitroglycerin/ Dextrose 0 ml @ 0 mls/hr AD PRN IV TITRATE 01/01/25 06:30 01/31/25 06:29 01/07/25 01:12 0 MLS/HR Norepinephrine Bitartrate 250 ml @ 0 mls/hr AD PRN IV TITRATE 12/27/24 11:00 01/26/25 10:59 01/04/25 06:14 0 MLS/HR Norepinephrine Bitartrate 8 mg/ Dextrose 250 ml @ 0 mls/hr AD PRN IV POST-OP CARDIOVASCULAR ORDERS 12/28/24 14:00 12/28/24 14:14 DC Nystatin (NYSTatin 328689 UNIT/ML 5ML UDCUP) 10 ml TID PO 01/07/25 21:00 02/06/25 20:59 01/13/25 10:06 10 ML Nystatin (NystOP 15 GM POWDER) APPLY TO PERINEAL AREA... BID TP 01/08/25 21:00 02/07/25 20:59 01/13/25 10:07 1 APPL Ondansetron HCl (zoFRAN 4MG INJ) 4 mg Q6H PRN IV NAUSEA/VOMITING 12/24/24 03:00 12/28/24 13:54 DC Ondansetron HCl (zoFRAN 4MG INJ) 4 mg Q6H PRN IV NAUSEA/VOMITING 12/28/24 14:00 01/27/25 13:59 12/30/24 11:01 4 MG Pantoprazole Sodium (PROTonix 40MG INJ) 40 mg BID IVP 01/05/25 09:00 02/04/25 08:59 01/13/25 10:02 40 MG Pantoprazole Sodium (PROTonix 40MG INJ) 40 mg Q12H IVP 01/02/25 05:00 01/05/25 04:04 DC 01/04/25 16:00 40 MG Phenol (Sore Throat Palmer) 1 SPRAY Q4H PRN PO SORE THROAT 01/06/25 10:30 01/09/25 08:15 DC 01/06/25 16:37 1 SPRY Piperacillin Sod/ Tazobactam Sod (Zosyn 3.375gm+NS 50ml) 3.375 gm Q12H IV 12/30/24 15:30 01/05/25 04:05 DC 01/04/25 14:38 3.375 GM Piperacillin Sod/ Tazobactam Sod (Zosyn 3.375gm+NS 50ml) 3.375 gm Q12H IV 01/05/25 09:00 01/09/25 08:59 DC 01/08/25 20:35 3.375 GM Potassium Phosphate 250 ml @ 42 mls/hr AD PRN IV LOW PHOS LEVEL 12/28/24 14:00 01/27/25 13:59 12/29/24 06:12 42 MLS/HR Potassium Chloride 100 ml @ 100 mls/hr AD PRN IV POTASSIUM PROTOCOL 12/26/24 15:00 12/28/24 13:54 DC Potassium Chloride 100 ml @ 100 mls/hr AD PRN IV HYPOKALEMIA 12/28/24 14:00 01/12/25 07:19 DC 01/06/25 20:02 100 MLS/HR Potassium Chloride 100 ml @ 100 mls/hr AD PRN IV POTASSIUM PROTOCOL 01/08/25 08:30 02/07/25 08:29 Potassium Chloride 100 ml @ 100 mls/hr AD PRN IV POTASSIUM PROTOCOL 01/12/25 07:30 02/11/25 07:29 Potassium Chloride (K-Dur/Klor-Con 20meq) 20 meq AD PRN PO POTASSIUM PROTOCOL 12/26/24 15:00 12/28/24 13:54 DC 12/26/24 18:27 20 MEQ Potassium Chloride (K-Dur/Klor-Con 20meq) 20 meq AD PRN PO POTASSIUM PROTOCOL 01/12/25 07:30 02/11/25 07:29 Potassium Chloride (KCl 10% Elixir 20meq/15ml) 20 meq AD PRN PO POTASSIUM PROTOCOL 12/26/24 15:00 12/28/24 13:54 DC Potassium Chloride (KCl 10% Elixir 20meq/15ml) 20 meq AD PRN PO POTASSIUM PROTOCOL 01/12/25 07:30 02/11/25 07:29 01/13/25 06:24 20 MEQ Propofol 100 ml @ 0 mls/hr AD PRN IV SEDATION 12/28/24 14:00 01/01/25 13:59 DC Sodium Polystyrene Sulfonate (kayEXALate 15 GM/60 ML) 30 gm ONCE STAT PO 12/30/24 11:36 12/30/24 11:39 DC 12/30/24 11:45 30 GM Sodium Bicarbonate (Sodium Bicarb 50meq 50ml Vial) 50 meq AD PRN IV OTHER[SEE DOSING INSTRUCTIONS] 12/28/24 14:00 12/31/24 14:00 DC 12/30/24 12:45 100 MEQ Sodium Chloride 500 ml @ 0 mls/hr AD IV 12/28/24 14:00 01/27/25 13:59 Sodium Chloride 1,000 ml @ 10 mls/hr ONCE IV 12/28/24 14:00 12/29/24 13:59 DC 12/28/24 17:06 10 MLS/HR Sodium Chloride (NS Flush 10ml) 10 ml Q8H PRN IVP IV LINE FLUSH 12/28/24 14:00 01/27/25 13:59 Sodium Chloride (Sodium Chloride 3% Inh) 4 ML [id number] IH 01/04/25 12:00 02/03/25 11:59 01/13/25 07:19 4 ML Tramadol HCl (UltRAM) 25 mg Q6H PRN PO MODERATE PAIN (4-6) 12/28/24 14:00 12/29/24 13:56 DC 12/29/24 11:05 25 MG Tramadol HCl (UltRAM) 50 mg Q6H PRN PO SEVERE PAIN (7-10) 12/28/24 14:00 12/29/24 13:56 DC Vasopressin 20 units/Sodium Chloride 100 ml @ 0 mls/hr PROTOCOL IV 12/30/24 15:30 01/29/25 15:29 12/31/24 10:40 6 MLS/HR Wound Care/ Dressing Products (Venelex Ointment) apply to buttocks and scrotum BID TP 01/11/25 21:00 02/10/25 20:59 01/13/25 10:07 1 GM DIAGNOSTICS / RADIOLOGY: [ ] ASSESSMENT: Multi-vessel coronary artery disease status post CABG 12/28/2024 Non-STEMI. 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 Hypertension. Anemia. ERICK possibly due to ATN New onset atrial fibrillation, not POA PLAN: ACS NSTEMI due to Multi vessel CAD, s/p CABG Day 10 * Continue aspirin, atorvastatin * Argatroban drip is stopped and patient is started on clopidogrel by Cardiology * Encouraged to use IS and to clear the secretions and use p.r.n. benzocaine spray for throat irritation * Monitor chest tube output * Strict I/O and daily weights Leukocytosis, secondary to Dexamethasone, resolved * His white cell count is normal * Ordered influenza and COVID-19 testing, tested negative * Speech evaluation concluded he has no aspiration and is currently on a heart healthy diet * We will follow up with the labs and continue to monitor Lactic acidosis * Lactic acid today was elevated at 3.7 * Patient white count is 10.9k and is hemodynamically stable * Urinalysis is negative for UTI * Blood cultures are still pending * Will continue to monitor Hyperglycemia, resolved * Patient's blood glucose is 160s today * Patient is not diabetic and his Hba1c on admission was 5.8 * We will taper the decadron 4 mg in 2 days * Advised tos stop drinking ensure drinks containing added sugars HFrEF LV ejection fraction 25-30% by echo on 01/01/2025 * Patient LVEF is 25-30% by echocardiography, down from 50-55% on 12/27/24 * Lasix drip is weaned off and patient is started on Lasix 40 mg PO Q12H by Nephrology * Resume GDMT for heart failure when weaned from pressors and more stable * Strict I&O and daily weights 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, S/P LLE femoral thrombectomy * Patient has demarcating necrosis of the left toes and midfoot and is improving * Patient underwent left lower extremity femoral thrombectomy on 01/01, after finding monophasic waveforms be on popliteal artery by arterial Doppler * Continue atorvastatin and aspirin * Continue nitroglycerin paste as per wine merchant * Patient can ambulate with the use of a CAM walking boot with physical therapy with a walker as per podiatry consult * Monitor leg perfusion, pulses, swelling, and discoloration Anemia, post CABG * Patient received 4 units of packed RBCs * Iron panel showed Iron 20, % Sat 5.5, TIBC 360 indicating Iron deficiency, received 2 doses of IV Venofer * Patient hemoglobin is stable at 10.9 * Monitor CBC daily in the a.m. daily * Monitor for signs of bleeding Acute on chronic renal dysfunction * Patient has good urine output * Creatinine Improved from 5.9 to 5.2 * Monitor CBC and electrolytes in the a.m. daily * Avoid nephrotoxic agents New onset atrial fibrillation, not POA * Amiodarone 200 mg p.o. as per Cardiology recommendation * Continue Eliquis 2.5 mg BID * Currently in sinus rhythm GI prophylaxis with Protonix 40 mg IV Continue DVT prophylaxis with heparin 5000 SQ b.i.d. ATTESTATION BY PHYSICIAN I have seen and examined the patient. I reviewed the documentation, medical decision making, and treatment plan as noted by the resident provider above. I agree with the findings and plan of care. Arnulfo Rios MD, HARSHAVARDHA MD Jan 13, 2025 10:49
[2025-01-14] VITALS (14 sets, daily range): BP systolic 128–145; BP diastolic 86–97; PULSE 69–77; RESP 16–18; TEMP 98–98.8; O2SAT 95–100
[2025-01-14 04:48] LABS: IMMATURE GRANULOCYTE ABSOLUTE 0.13 K/uL (0-1); NUCLEATED RED BLOOD CELLS 0.2 % (0.0-0.19); PLATELET COUNT (AUTO) 626 K/uL (130-400); RED BLOOD CELL COUNT(AUTO) 4.41 MIL/uL (4.50-6.20); RED CELL DISTRIBUTION WIDTH 25.1 % (11.0-15.5); WHITE BLOOD COUNT (AUTO) 11.5 K/uL (4.8-10.8)
[2025-01-14 05:10] LABS: CREATININE 4.5 mg/dL (0.5-1.3); GLOMERULAR FILTR. RATE CALC 15.0 mL/min (>90); GLUCOSE,RANDOM 182.0 mg/dL (70-105); SODIUM SERUM 134.0 mmol/L (136-145)
[2025-01-14 05:40] LABS: UREA NITROGEN, BLOOD 127.0 mg/dL (7-18)
--- NOTE | 2025-01-14 08:02 | PN ---
SUBJECTIVE: The patient is a very pleasant 54-year-old diabetic, Latin-L[place] male. T-max 98.1, pulse 77, respirations 18, blood pressure 134/91. The patient has a white count, it is 11.5, H and H 11.7 and 35.3, platelets 626. BUN and creatinine 127 and 4.5. The patient is being followed by the Nephrology Service for acute renal failure. The patient is being evaluated for outpatient placement. The patient's blood cultures, no growth x 24 hours. Nasal MRSA screen negative. The patient is being followed by the Cardiothoracic Surgery Service. Cardiothoracic Surgery Service feels the patient will require angiogram once he recovers from his current cardiac surgery. The patient is followed for necrosis all digits left foot, status post coronary artery bypass grafting on 12/28/2024, removal of an intraaortic balloon pump and thrombectomy on 12/31/2024, lower extremity ischemia to his left foot appears to be embolic in nature. His pulses are strongly audible by Doppler on the left. He has acute and chronic combined heart failure with ejection fraction of 25-30%, cardiorenal syndrome, acute renal failure, hypertension, anemia, hypokalemia. According to Nephrology, there is no need for renal replacement therapy at this point. OBJECTIVE: Examination today shows he has necrotic eschars to the entirety of his digits 1, 2, 3, 4, and 5 on the left. Blistering hemorrhagic lesions to the dorsal plantar aspect of the forefoot bilaterally. Digits are cold. Pulses are audible by Doppler on the left side, palpable on the right side both anterior tibial and posterior tibial. ASSESSMENT: A 54-year-old male, status post thrombectomy, removal of an intraaortic balloon pump after a 4-vessel coronary artery bypass grafting procedure, acute renal failure, new-onset atrial fibrillation, demarcating necrosis of all digits of the left foot in the presence of audible Dopplers to the anterior tibial and posterior tibial on the left, hemorrhagic bulla to the dorsal and plantar aspects of his midfoot and forefoot on the left. Acute renal failure being followed by Nephrology, no need for renal replacement therapy from their standpoint. The patient has been evaluated for outpatient placement. The patient is ambulating with a surgical shoe on the left foot with physical therapy. PLAN: We will continue to monitor the patient closely for the ischemic changes to all digits of his left foot that appeared to be worsening. He remains afebrile. His blood cultures have been negative. His white count 11.5, currently not receiving any antibiotic therapy. There is no need for surgical intervention at this point to his left foot, the tissue is continuing to demarcate. TID: [id number] RECEIPT: [id number]
--- NOTE | 2025-01-14 11:59 | PN ---
SUBJECTIVE: A 54-year-old male with a history of diabetes mellitus and hypertension. The patient was initially admitted and found to have coronary artery disease. The patient is status post CABG. He has had acute renal failure postoperatively. Creatinine continues to slowly improve. He does have significant debilitation, being seen by physical therapy and the patient is being seen as a followup visit for all the above. REVIEW OF SYSTEMS: CONSTITUTION: He is feeling improved. HEENT: No change in vision. No change in hearing. CARDIOVASCULAR: No current chest pains or palpitations. PULMONARY: No shortness of breath. GASTROINTESTINAL: He is tolerating a diet. MUSCULOSKELETAL: Complains of weakness. PHYSICAL EXAMINATION: VITAL SIGNS: Blood pressure is 134/91, pulse 70. He is afebrile. GENERAL: He is a chronically ill male, older than appearing. HEENT: Head is atraumatic. Pupils are equal, round, reactive to light. Oropharynx is without exudate. Nares clear. NECK: There is no JVP. There is no thyromegaly, no mass. CARDIOVASCULAR: Regular. There is no S3 or S4 gallop. LUNGS: Coarse with equal thoracic movement. ABDOMEN: Soft, nondistended, and nontender. EXTREMITIES: Reveal no clubbing, no cyanosis. NEUROLOGICAL: He is awake. He is alert. LABORATORY DATA: Sodium 134, potassium 3.5. BUN 127, creatinine 4.5. Hemoglobin 11, hematocrit 35. IMPRESSION: * Acute renal failure. * Coronary artery disease, status post coronary artery bypass grafting. * Diabetes mellitus. * Hypertension. PLAN: The patient's creatinine continues to slowly improve. The patient's electrolytes have all been aggressively repleted. Blood pressure is under adequate control. We will continue to follow closely. The patient is being seen by case management for final disposition. Once the patient is discharged, he can follow up in the [facility]al [facility]. TID: [id number] RECEIPT: [id number]
--- NOTE | 2025-01-14 13:18 | PN ---
[facility] CARDIOLOGY PROGRESS NOTE Date Patient Seen: Jan 14, 2025 Time of Visit: 13:16 Interval History: No acute events overnight. Current creatinine of 5.2, showing improvement. Overnight urine output 1200 mL, net-450 mL, patient denies any cardiac symptoms or anginal equivalents Physical Examination: GENERAL: [No acute distress.] NECK: R CVC LUNGS: [ diminished inspiratory effort. No wheezes, or rhonchi.] HEART: [Normal rate and rhythm. Normal S1 and S2 without murmurs, gallop or rub.] VASC: [Peripheral pulses +1 bilaterally. blistering to distal left foot with ecchymoses to distal digits] ABD: soft, nontender SKIN: [ecchymoses, blistering to LLE distal digits. sensation and motor intact NEURO: [Awake, alert , moves all extremities.] Laboratory: [ ] Hematology Labs: Test 01/14/25 04:43 01/13/25 04:03 Range/Units White Blood Count 11.5 H 4.8-10.8 K/uL Red Blood Count 4.41 L 4.50-6.20 MIL/uL Hemoglobin 11.7 L 14.0-18.0 g/dL Hematocrit 35.3 L 42-54 % Mean Corpuscular Volume 80.0 79-99 fL Mean Corpuscular Hemoglobin 26.5 L 27.0-33.0 pg Mean Corpuscular Hemoglobin Concent 33.1 32.0-36.0 g/dL Red Cell Distribution Width 25.1 H 11.0-15.5 % Platelet Count 626 H 130-400 K/uL Mean Platelet Volume 11.5 H 7.5-10.5 fL Immature Granulocyte % (Auto) 1.1 H 0-1 % Neutrophils (%) (Auto) 77.4 H 40.0-77.0 % Lymphocytes (%) (Auto) 9.7 L 21.0-51.0 % Monocytes (%) (Auto) 11.7 3.0-13.0 % Eosinophils (%) (Auto) 0.0 0.0-8.0 % Basophils (%) (Auto) 0.1 0.0-5.0 % Neutrophils # (Auto) 8.9 H 1.8-7.7 K/uL Lymphocytes # (Auto) 1.1 1.0-4.8 K/uL Monocytes # (Auto) 1.4 H 0.1-1.0 K/uL Eosinophils # (Auto) 0.00 0.00-0.70 K/uL Basophils # (Auto) 0.01 0.00-0.20 K/uL Absolute Immature Granulocyte (auto 0.13 0-1 K/uL Nucleated Red Blood Cells 0.2 H 0.0-0.19 % White Cell Morphology Comment See comments Chemistry Labs: Test 01/14/25 11:25 01/14/25 04:43 Range/Units Lactic Acid Level 4.0 H 0.8-2.5 mmol/L C-Reactive Protein, Quantitative 20.40 H 0.5-3.0 mg/L Sodium Level 134 L 136-145 mmol/L Potassium Level 3.5 3.5-5.1 mmol/L Chloride Level 98 L 101-111 mmol/L Carbon Dioxide Level 22 21-32 mmol/L Blood Urea Nitrogen 127 *H 7-18 mg/dL Creatinine 4.5 H 0.5-1.3 mg/dL Glomerular Filtration Rate Calc 15 >90 mL/min Random Glucose 182 H 70-105 mg/dL Total Calcium 7.8 L 8.5-10.1 mg/dL Diagnostics / Radiology: [Copy/Paste Echos/Imaging Report here] Impression and Plan: ACS-NSTEMI MVCAD s/p CABG with VG-RCA, VG-OM, TORRES-LAD and VG-distal LAD LLE ALI while IABP in place, status post femoral thrombectomy, placed on argatroban. New onset atrial fibrillation with rapid ventricular response, converted. Hypertension ICMP LVEF 25-30% Acute renal failure without dialysis #ACS-NSTEMI on presentation Patient presented as a transfer for admission due to NSTEMI Presenting hemoglobin was 7.1 g, underwent EGD was negative for active bleeding or ulcers Coronary angiogram revealing multivessel CAD CV surgery was consulted for CABG s/p 4 v CABG and insertion of aortic balloon pump with VG-RCA, VG-OM, TORRES-LAD and VG-distal LAD Removal of IABP 12/31 Defer the use of nephrotoxic medications due to worsening renal function Continue [id number] mg daily, ASA 81 mg daily, Lopressor 50 mg every12 hours and atorvastatin 40 mg q.h.s. Rest of care by CV surgery #HFmrEF ICM-LVEF 25-30%- NYHA II Euvolemic and compensated on exam 2D echocardiogram (01/01/2025) LVEF 25-30%, hypokinetic anterior wall and apex. Strict I's and O's and daily weights. Overnight urine output 1200 mL, net-450 ml Continue Lasix 40 mg po every 12 hours GDMT: Continue Lopressor 50 mg every12 hours Unable to optimize GDM T any further due to worsening renal function (nephrology is following) # paroxysmal atrial fibrillation Documented episode atrial fibrillation with RVR on 01/04/2025 Initially cardioverted with amiodarone bolus and infusion Current review of telemetry sinus rhythm with a heart rate of 77 beats per minute with no events overnight we will recommend Eliquis once deemed safe by CV surgery Continue Lopressor 50 mg every 12 hours, amiodarone 200 mg daily Keep on telemetry, monitor/replace electrolytes as needed ( Mg >2 , K > 4 ) Thank you for this consult cardiology will continue to follow along Kane Xiao MD ATTESTATION BY PHYSICIAN I have seen and examined the patient, reviewed the above documentation, participated in medical decision making, made necessary modifications, and agree with the treatment plan as documented by my mid-level provider above. MD IRASEMA Alas JAMES R MD Jan 14, 2025 13:17
--- NOTE | 2025-01-14 14:15 | PN ---
[facility] PROGRESS NOTE Date of Service: Jan 14, 2025 Time of Service: 13:47 SUBJECTIVE: This is a 54-year-old male who presented to [facility] with a non-STEMI. He underwent left heart catheterization which showed severe multi-vessel coronary artery disease with mid to apical inferior hypokinesis, LVEF 45-50%. He underwent echocardiogram 12/19/2024 which showed an ejection fraction of 55- 60%, mild LVH, normal-sized left atrium, mild mitral valve regurgitation and mild tricuspid valve regurgitation. [place] [facility] [place] 12/25 patient remains admitted to the PCU, case discussed with the RN, no acute events overnight, he denied chest pain, shortness shortness for breath, no nausea, no vomiting, no abdominal discomfort. Cardiology input noted and appreciated, patient to continue aspirin 81 mg p.o. daily and atorvastatin 40 mg p.o. daily. Continue metoprolol tartrate 25 mg p.o. b.i.d.. Pending evaluation by CT surgery for consideration for CABG. Discussed with the patient. 12/26 patient remains admitted to the PCU, case discussed with the RN, no acute events overnight, the time of my visit the patient is comfortably in bed, alert oriented x3, eating breakfast, tolerating well, denies nausea, no vomiting, no abdominal discomfort, he denies chest pain, no shortness a breath. Remains on aspirin 81 mg p.o. daily, atorvastatin and metoprolol 25 mg p.o. b.i.d.. Pending evaluation by CT surgery for consideration of CABG. 12/27 patient is seen and examined at bedside, case discussed with the RN, no acute events overnight, currently the patient NPO, scheduled for CABG today by Cardiothoracic surgeon. We will continue to follow. 12/28 patient is seen and examined at bedside, case discussed with the RN, no acute events overnight, currently the patient NPO, scheduled for CABG today by Cardiothoracic surgeon. We will continue to follow. 12/29 patient is seen and examined at bedside, remains admitted to the ICU, postoperative day 1., status post CABG 12/28/2024, patient on insulin drip, nitroglycerin drip, alert oriented x3 following commands, however was mildly agitated earlier this morning, motion with the RN started on Precedex. Patient with chest tube in place. Further recommendations per Cardiothoracic surgeon. 12/30 patient remains admitted to the ICU, case discussed with the RN, patient remains confused, trying to pull his IV lines, remains on Precedex. Throughout the balloon pump in place, just to be breath, remains on epinephrine, Levophed, Lasix drip, dobutamine drip. Creatinine today at 3.0. Nephrology consultation requested, we will follow input and recommendation. Continue to monitor liver enzymes in a.m., follow ammonia level (at the time of my dictation less than 10). Continue to follow critical care input and recommendation. Prognosis remains guarded. 12/31 54-year-old male who was transferred from [facility] with a non- STEMI. He underwent left heart catheterization which showed severe multi-vessel coronary artery disease with mid to apical inferior hypokinesis, LVEF 45-50%. He underwent echocardiogram 12/19/2024 which showed an ejection fraction of 55- 60%, mild LVH, normal-sized left atrium, mild mitral valve regurgitation and m ild tricuspid valve regurgitation. He was [place] [facility] [place] Cardiothoracic surgeon consultation requested, patient underwent CABG 12/28/2024. Continue to follow Cardiothoracic input and recommendations. Patient has been mildly confused post procedure, started on Precedex. 01/01 54-year-old male who was transferred from [facility] with a non- STEMI. He underwent left heart catheterization which showed severe multi-vessel coronary artery disease with mid to apical inferior hypokinesis, LVEF 45-50%. He underwent echocardiogram 12/19/2024 which showed an ejection fraction of 55- 60%, mild LVH, normal-sized left atrium, mild mitral valve regurgitation and mild tricuspid valve regurgitation. He was [place] [facility] [place] Cardiothoracic surgeon consultation requested, patient underwent CABG 12/28/2024. At the time of my visit resting comfortably in bed, off Precedex, following commands, status post interval removal of intra-aortic balloon pump yesterday, remains on dobutamine and nitroglycerin drip as well as argatroban. Continue to follow critical Care and Cardiothoracic input and recommendations. 01/02/25: Patient was evaluated at the bedside. Today is postop Day 5 and he is recovering well. Patient underwent thrombectomy in the femoral artery of left lower extremity and removal of intra-aortic balloon pump yesterday. Patient has mottled appearance in the left great toe and dorsalis pedis pulsations are present. His chest tube output was 320 mL over the last 24 hours. His stool was positive for occult blood and a GI consult has been placed. Cardiology advised to continue the current treatment. Patient is weaned off Levophed and is currently on Lasix, dobutamine, nitroglycerin, and argatroban drips. A swallow test will be performed today to evaluate the need for removing NG tube. 01/03/25: Patient was evaluated at the bedside, this is postop day 6 and is recovering well. Patient has mottled appearance in the left great toe extending into all the digits. Dorsalis pedis pulsations were diminished with palpation but detected on Doppler. His chest tube output was 310 mL today. A GI consult was placed for occult blood however no intervention was recommended and advised to continue Protonix 40 mg. Nephrology recommended no renal replacement as alicia ent has good urine output,3 L today and is responding well to diuresis. Patient is continued on Lasix, dobutamine, nitroglycerin, and argatroban drips. NG tube was removed and patient was started on pureed heart healthy diet as tolerated. 01/04/2025: Patient was evaluated at the bedside, this is postop day 7. Patient had an episode of AFib with rapid ventricular response this morning and was cardioverted with amiodarone and continued on drip. Patient's left leg discoloration has improved, but still has diminished pulses only detected by Doppler. His chest tube output is 140 mL. Patient's ERICK has been worsening with creatinine 7.8 today however he has adequate urine output, 3.5 L today. Cardiology recommended to reduce Lasix drip to 2.5 and nephrology advised that patient's creatinine is stabilizing and renal function will improve in the next few days. Patient is still continuing on argatroban, nitro, and dobutamine drips. Otherwise patient has been recovering well tolerating pureed food and only complains of occasional throat pain due to cough. He was encouraged to cough to clear the chest secretions and use p.r.n. benzocaine spray for relief. His chest x-ray shows clearing pleural effusion and pulmonary edema. 01/05/2025: Patient was evaluated at the bedside and this is postop day. Patient has been in sinus rhythm since the AFib episode this morning. IV amiodarone was stopped and transitioned to p.o. 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 Family Readiness Support Assistant recommended applying nitroglycerin paste and and covered it in dressing. Patient's ERICK continues to worsen, creatinine 8.2 today. However he is maintaining a good urine output, 2500 today. He has been weaning of Lasix drip. Patient has been encouraged to use incentive spirometry and cough as tolerated to clear the chest secretions. Chest x-ray showed no evidence of pulmonary venous congestion today. 01/06/2025: Patient was evaluated at the bedside, he was sitting comfortably in his chair. Patient has been in sinus rhythm. Patient continues on argatroban, Lasix, and dobutamine drips. Patient's ERICK seemed to be stabilizing his creati nine is 8.3 compared to 8.2 yesterday. Patient is maintaining good urine output, 2L in the last 24 hours. Patient's left foot was covered in dressing. Dr. Persaud evaluated the patient today and recommended walking boot with dressing if he is cleared by Cardiology for ambulation. His demarcating necrosis of the distal aspects of digits 1, 2, 3, and 4 on the left side seemed to be improving. Dr. Persaud recommended to continue nitroglycerin paste. Patient encouraged to use incentive spirometry and cough and was asked to use benzocaine for relief from throat pain. 01/07/2025 - patient seen at bedside in room 215 , patient is alert awake and oriented. Patient continues to be on argatroban, Lasix drips, his acute kidney injury possibly secondary to ATN secondary to hypotensive episode seems resolving while maintaining good urine output. Patient still complains of cough, pain in the left lower extremity. Patient's phosphorus trended down to 6.8 And anion gap closed down to 12 today. Patient currently hemodynamically stable and we will continue to monitor closely. 01/08/2025 Patient is seen and examined at the bedside. Awake alert and oriented and sitting comfortably in the chair. Argatroban drip is discontinued and patient is started on Heparin for DVT prophylaxis and Plavix 75 mg [for NSTEMI] by cardiology. Vitals blood pressure ranging in 110/80s, pulse rate 80s, respiratory rate in 20s to 30s, SpO2 greater than 95% on room air. Patient had an episode of AFib today. Currently in sinus rhythm. Chest tube and arterial line are discontinued as per CT is recommendations. Urine output 1.8 L. He still complains of productive cough, poor appetite. Labs hemoglobin stable at 10.1, potassium low at 3.1, BUN 93, creatinine improved from 7.9-7.5. Chest x-ray revealed no evidence of airspace consolidation or pulmonary venous congestion. 01/09/25: Patient was seen and evaluated at the bedside. He was awake, alert, and oriented to time place and person. Patient had been in sinus rhythm and had no acute events overnight. His vitals have been stable and only complains of throat pain. His creatinine is improving, 7.4 from 7.5 yesterday. He is maintaining good urine output of 2 L[place] [id number] today and is receiving Zosyn. His chest x-ray showed trace left pleural effusion. Still has productive cough and a poor appetite. Speech evaluation was placed for tomorrow for suspected aspiration. Testing for influenza and COVID-19 were placed. 01/10/25 patient was seen patient was sitting in chair receiving his neb treatment. Patient denied chest pain or shortness for breath. 01/11/25: Patient was seen and evaluated at the bedside in room 205. Patient was downgraded to medical floor and is recovering well from his surgery. Improving in his creatinine is at 6.6 from 6.9 yesterday. Is maintaining a good urine output of 1975 mL yesterday. His demarcating necrosis of the left foot is improving with gradually receding necrotic tissue. His bilateral pedal pulses are present with Doppler. We will have speech therapist evaluate with barium swallow for consideration of advancing diet from pureed food. 01/12/25: Patient was seen and evaluated at the bedside in room 205. Patient was sitting comfortably in the chair. Patient had no acute events overnight. Patient reports he is feeling much better and denies chest pain, shortness of breath, dizziness. Patient blood sugars were high today at 295. Patient was noted to be drinking ensure protein drinks containing added sugars with his breakfast. He has been also taking 7 doses of Decadron 4mg so far. Patient was advised not to drink the ensure drinks for now and we will taper the Decadron in 2 days. His lactic acid is elevated at 3.6 and has an anion gap metabolic acidosis. We will order a UA with microscopy and culture. Case management is working on the placement to a SNF and will follow their recommendations. 01/13/2025: Patient was evaluated at the bedside in room 205. Patient was lying comfortably in his bed with head end elevated. He had no acute events overnight. He is currently being tapered off dexamethasone. Patient denies chest pain, shortness of breath, dizziness and only has a mild sore throat. Blood glucose was controlled and 160s this morning. Patient was asked to drink ensure and instead we will be given glucerna. His demarcating necrosis of the left foot is improving and only has a couple of fluid-filled blisters on the toes. Patient's lactic acid today is a 3.7. Patient has normal white blood cell count, normal procalcitonin and has no fever. Blood and urine cultures results are still pending. Patient is pending rehab placement. 01/14/2025: Patient was evaluated at the bedside in room 205. Patient was sitting comfortably in his chair. Had no acute events overnight. Patient blood glucose is well controlled and today it is 182. His ERICK is improving from 5.2- 4.5 today and is maintaining a good urine output of 700 mL. Patient's lactic acid is elevated at 4, CRP 20 and he had up trending white cell count which is 11.5 today. Patient is afebrile and denies any chills, night sweats, pain at the IV site, nausea, vomiting, and diarrhea. Patient was started on Rocephin and discontinued his PICC line. A new blood culture was ordered today. Patient is still recovering from demarcating necrosis of the left foot after undergoing femoral thrombectomy and still complains of burning pulsatile pain in the left foot. We are considering his elevated lactic acid is due to regional hypoperfusion causing type B lactic acidosis however we will continue to evaluate for other sources of infection. In the evening patient also complained of a lesion on the bottom of his right side scrotum with a minor bleeding. Patient reports that he had increased itching sensation in the area and has been using nystatin powder. Patient is pending placement for rehab at [facility]. REVIEW OF SYSTEMS CONSTITUTIONAL: Denies fevers, chills, or night sweats. No unintentional weight loss reported., Throat irritation NEUROLOGICAL: Denies headache, amaurosis fugax, motor weakness, sensory deficit, vertigo/spinning sensation, gait abnormalities, or tremors. CARDIOVASCULAR: Denies any exertional angina, dyspnea on exertion, orthopnea, paroxysmal nocturnal dyspnea, palpitations, life-threatening arrhythmias, claudication. PULMONARY: Denies any shortness of breath, hemoptysis, pleuritic chest pain. Patient has cough with clear sputum, improving GASTROINTESTINAL: Denies any type of dysphagia to either liquids or solids. Denies nausea, vomiting, pyrosis, early satiety, abdominal pain, diarrhea, constipation, or changes in stool consistency or caliber. GENITOURINARY: Denies frequency, urgency, nocturia, hematuria or incontinence. Andres removed. Complains of itching in the inner thighs and on scrotum. Complains of small lesion on the base of right side of scrotum PHYSICAL EXAM GENERAL APPEARANCE: Patient is alert, oriented, and comfortable lying down and sitting. NECK: Supple. No JVD. CHEST: Normal chest expansion. Telemetry in place. LUNGS: Absence of any rales, rhonchi or any wheezing. Chest tube in place. CARDIOVASCULAR: Regular. S1 and S2 normal. No appreciable rubs, murmurs or gallops. ABDOMEN: Soft, nontender, and nondistended. There is no rebound, voluntary guarding, or rigidity. : Deferred. No Andres. 3 mm scraped lesion with minor bleeding present on the bottom of scrotum on right side EXTREMITIES: LLE pulses present per Doppler, left toes and foot covered in dressing. Vital Signs (last 8hr) Date Time Temp Pulse Resp B/P (MAP) Pulse Ox O2 Delivery O2 Flow Rate FiO2 01/14/25 11:26 71 18 01/14/25 11:26 71 18 N/A Room Air 21 01/14/25 11:00 98.2 74 16 128/86 99 Room Air 01/14/25 08:30 98 Room Air* 0 21 01/14/25 07:19 71 18 01/14/25 07:19 71 18 N/A Room Air 21 01/14/25 07:00 98.6 77 16 142/97 97 Room Air LABS: Laboratory: Test 01/14/25 11:25 01/14/25 04:43 01/13/25 09:00 01/13/25 04:03 Range/Units Lactic Acid Level 4.0 H 0.8-2.5 mmol/L C-Reactive Protein, Quantitative 20.40 H 0.5-3.0 mg/L White Blood Count 11.5 H 4.8-10.8 K/uL Red Blood Count 4.41 L 4.50-6.20 MIL/uL Hemoglobin 11.7 L 14.0-18.0 g/dL Hematocrit 35.3 L 42-54 % Mean Corpuscular Volume 80.0 79-99 fL Mean Corpuscular Hemoglobin 26.5 L 27.0-33.0 pg Mean Corpuscular Hemoglobin Concent 33.1 32.0-36.0 g/dL Red Cell Distribution Width 25.1 H 11.0-15.5 % Platelet Count 626 H 130-400 K/uL Mean Platelet Volume 11.5 H 7.5-10.5 fL Immature Granulocyte % (Auto) 1.1 H 0-1 % Neutrophils (%) (Auto) 77.4 H 40.0-77.0 % Lymphocytes (%) (Auto) 9.7 L 21.0-51.0 % Monocytes (%) (Auto) 11.7 3.0-13.0 % Eosinophils (%) (Auto) 0.0 0.0-8.0 % Basophils (%) (Auto) 0.1 0.0-5.0 % Neutrophils # (Auto) 8.9 H 1.8-7.7 K/uL Lymphocytes # (Auto) 1.1 1.0-4.8 K/uL Monocytes # (Auto) 1.4 H 0.1-1.0 K/uL Eosinophils # (Auto) 0.00 0.00-0.70 K/uL Basophils # (Auto) 0.01 0.00-0.20 K/uL Absolute Immature Granulocyte (auto 0.13 0-1 K/uL Nucleated Red Blood Cells 0.2 H 0.0-0.19 % Sodium Level 134 L 136-145 mmol/L Potassium Level 3.5 3.5-5.1 mmol/L Chloride Level 98 L 101-111 mmol/L Carbon Dioxide Level 22 21-32 mmol/L Blood Urea Nitrogen 127 *H 7-18 mg/dL Creatinine 4.5 H 0.5-1.3 mg/dL Glomerular Filtration Rate Calc 15 >90 mL/min Random Glucose 182 H 70-105 mg/dL Total Calcium 7.8 L 8.5-10.1 mg/dL Urine Color LIGHT-YELLOW YELLOW Urine Appearance CLEAR CLEAR Urine pH 6.0 5.0-8.0 Urine Specific [place] 1.013 1.001-1.031 Urine Protein 20 H NEGATIVE mg/dL Urine Glucose (UA) 300 H NEGATIVE mg/dL Urine Ketones NEGATIVE NEGATIVE mg/dL Urine Occult Blood +- (TRACE) H NEGATIVE Urine Nitrate NEGATIVE NEGATIVE Urine Bilirubin NEGATIVE NEGATIVE mg/dL Urine Urobilinogen 0.2 0.2-1.0 mg/dL Urine Leukocyte Esterase NEGATIVE NEGATIVE Jorge/uL Urine RBC 2-5 H 0-1 /HPF Urine WBC 2-5 H 0-1 /HPF Urine Squamous Epithelial Cells RARE 0-2 /HPF Urine Bacteria RARE None Seen /HPF Urine Hyaline Casts 2-5 H 0-1 /LPF /LPF White Cell Morphology Comment See comments Current Medications Medications (Trade) Dose Ordered Sig/Mila Route PRN Reason Start Time Stop Time Status Last Admin Dose Admin Acetaminophen (TYLenol 325MG TAB) 650 mg Q4H PRN PO Temp >38.3C(AFTER EXTUBATION) 12/28/24 14:00 01/27/25 13:59 Acetaminophen (TYLenol 325MG TAB) 650 mg Q6H PRN PO MILD PAIN (1-3) 12/24/24 01:30 12/28/24 13:57 DC 12/27/24 23:45 650 MG Acetaminophen (TYLenol 325MG TAB) 650 mg Q6H PRN PO TEMPERATURE GREATER THAN 101.5 12/24/24 03:00 12/28/24 14:10 DC Acetaminophen (TYLenol 325MG TAB) 650 mg Q6H PRN PO MILD PAIN (1-3) 12/28/24 14:00 01/27/25 13:59 01/05/25 20:03 650 MG Acetaminophen (TYLenol 650MG SUPPOSITORY) 650 mg Q4H PRN RC Temp >38.3C WHILE INTUBATED 12/28/24 14:00 01/07/25 19:35 DC Acetaminophen (acetaMINOPHEN) 1,000 mg Q6H6 IV 12/28/24 18:00 12/29/24 17:59 DC 12/29/24 17:27 1,000 MG Acetaminophen (acetaMINOPHEN) 1,000 mg Q6H6 IVPB 12/30/24 00:00 12/31/24 20:14 DC 12/30/24 18:16 1,000 MG Albumin Human 250 ml @ 0 mls/hr AD PRN IV IF HEMODYNAMICALLY UNSTABLE 12/28/24 14:00 12/29/24 09:28 DC 12/29/24 09:28 250 MLS/HR Albuterol (DUOneb) 1 UDVIAL [id number] IH 01/01/25 18:00 01/01/25 15:25 DC Albuterol Sulfate (Proventil 0.083% 2.5mg/3ml) 2.5 mg ONCE STAT IH 12/30/24 10:22 12/30/24 10:32 DC 12/30/24 10:43 2.5 MG Aminocaproic Acid 97835 mg/Sodium Chloride 310 ml @ 25 mls/hr AD IV 12/28/24 14:00 12/28/24 14:14 DC Aminocaproic Acid 17825 mg/Sodium Chloride 480 ml @ 0 mls/hr AD PRN IV BLEEDING CONTROL 12/27/24 11:00 01/07/25 19:35 DC Amiodarone HCl (pacERONE 200MG) 200 mg DAILY PO 01/05/25 09:00 02/04/25 08:59 01/14/25 08:33 200 MG Amiodarone HCl 150 mg/Dextrose 103 ml @ 618 mls/hr ONCE IV 01/04/25 06:30 01/04/25 06:21 DC Amiodarone HCl 360 mg/Dextrose 207.2 ml @ 33.3 mls/hr AD IV 01/04/25 06:30 01/04/25 06:21 DC Amiodarone HCl 540 mg/Dextrose 310.8 ml @ 16.7 mls/hr [id number] IV 01/04/25 06:30 01/09/25 09:26 DC 01/04/25 13:01 16.7 MLS/HR Apixaban (EliquIS 2.5 mg) 2.5 mg BID PO 01/13/25 09:00 02/12/25 08:59 01/14/25 08:33 2.5 MG Apixaban (EliquIS) 5 mg HS PO 01/07/25 21:00 01/07/25 19:35 DC Argatroban 250 mg/ Sodium Chloride 250 ml @ 0 mls/hr PROTOCOL IV 12/31/24 16:30 01/07/25 19:30 DC 01/07/25 16:32 4.17 MLS/HR Aspirin (Aspirin 81mg Ec Tab) 81 mg DAILY PO 12/24/24 09:00 01/23/25 08:59 01/14/25 08:33 81 MG Atorvastatin Calcium (LIPItor 40MG) 40 mg HS PO 12/24/24 21:00 01/01/25 11:16 DC 12/31/24 20:44 40 MG Atorvastatin Calcium (LIPItor 40MG) 40 mg HS PO 01/07/25 21:00 02/06/25 20:59 01/13/25 21:47 40 MG Benzocaine (Cepacol Sore Throat Lozenge) 1 each Q4H PRN MM SORE THROAT 01/03/25 13:30 02/02/25 13:29 01/06/25 11:16 1 EACH Bisacodyl (DulcoLAX) 10 mg DAILY PRN RC CONSTIPATION - MOM INEFFECTIVE 12/29/24 14:00 01/28/25 13:59 12/30/24 11:05 10 MG Calcium Gluconate 1 gm/Sodium Chloride 60 ml @ 200 mls/hr AD PRN IV HYPOCALCEMIA 12/28/24 14:00 01/27/25 13:59 01/01/25 01:52 200 MLS/HR Cefazolin Sodium (ANCEF 1 gm vial) 2 gm ONCALL IVP 12/26/24 16:30 12/26/24 16:28 DC Cefazolin Sodium (Ancef) 2 gm ONCALL PRN IVP SURGERY 12/26/24 16:30 12/28/24 13:57 DC Cefazolin Sodium (Ancef) 2 gm Q8H IVPB 12/28/24 19:00 12/29/24 11:01 DC 12/29/24 11:04 2 GM Ceftriaxone Sodium (Rocephin 2gm Inj) 2 gm Q24H IVPB 01/14/25 13:30 01/24/25 13:29 Clopidogrel Bisulfate (plaVIX 75MG) 75 mg DAILY PO 01/08/25 09:00 02/07/25 08:59 01/14/25 08:32 75 MG Dexamethasone (DeCADron 4 mg TAB) 4 mg DAILY PO 01/13/25 09:00 01/12/25 17:40 DC Dexamethasone (DeCADron 4 mg TAB) 6 mg DAILY PO 01/09/25 09:00 01/09/25 08:06 DC Dexamethasone (DeCADron 4 mg TAB) 10 mg BID PO 01/09/25 09:00 01/12/25 13:07 DC 01/12/25 09:24 10 MG Dexamethasone (DeCADron 4 mg TAB) 10 mg DAILY PO 01/13/25 09:00 01/15/25 08:59 01/14/25 08:32 10 MG Dexmedetomidine/ Sodium Chloride (PRECEdex 400MCG/ 100ML-NS) 400 mcg PROTOCOL IV 12/28/24 14:00 12/29/24 13:59 DC 12/29/24 12:16 400 MCG Dexmedetomidine/ Sodium Chloride (PRECEdex 400MCG/ 100ML-NS) 400 mcg PROTOCOL IV 12/29/24 18:00 01/28/25 17:59 12/31/24 06:05 400 MCG Dextrose (D50w) 50 ml AD PRN IV HYPOGLYCEMIA PROTOCOL 12/28/24 14:00 01/27/25 13:59 Dextrose (D50w) 50 ml ONCE STAT IV 12/30/24 11:36 12/30/24 11:39 DC 12/30/24 11:45 50 ML Dextrose/Sodium Chloride 1,000 ml @ 50 mls/hr Q20H IV 12/30/24 11:30 01/01/25 16:17 DC 01/01/25 02:09 50 MLS/HR Dobutamine HCl/ Dextrose 250 ml @ 0 mls/hr PROTOCOL IV 12/29/24 14:00 01/08/25 15:43 DC 01/05/25 08:48 4.1 MLS/HR Docusate Sodium (COLace 100MG CAP) 100 mg BID PO 12/28/24 21:00 12/29/24 08:01 DC 12/28/24 20:53 100 MG Docusate Sodium (COLace LIQUID 100MG/10ML) 100 mg BID PO 12/29/24 08:00 01/28/25 07:59 01/14/25 08:29 100 MG Enoxaparin Sodium (Lovenox) 30 mg DAILY SQ 12/31/24 09:00 12/31/24 16:12 DC Enoxaparin Sodium (Lovenox) 30 mg DAILY SQ 01/08/25 09:00 01/07/25 20:03 DC Epinephrine HCl 10 mg/Sodium Chloride 250 ml @ 0 mls/hr AD PRN IV TITRATE 12/27/24 11:00 01/26/25 10:59 12/30/24 04:29 0 MLS/HR Epinephrine HCl 10 mg/Sodium Chloride 250 ml @ 0 mls/hr AD PRN IV POST-OP CARDIOVASCULAR ORDERS 12/28/24 14:00 12/28/24 14:14 DC Famotidine (Pepcid 20mg Vial) 20 mg BID IV 12/28/24 21:00 12/31/24 20:20 DC 12/31/24 08:51 20 MG Famotidine (Pepcid 20mg Vial) 20 mg Q48H IV 01/02/25 09:00 01/02/25 04:51 DC Famotidine (Pepcid 20mg Tab) 20 mg DAILY PO 12/24/24 09:00 12/28/24 13:54 DC 12/26/24 10:19 20 MG Furosemide (LASix 20MG TAB) 20 mg Q12H PO 12/30/24 09:00 12/30/24 08:34 DC Furosemide (LASix 20MG VIAL) 20 mg Q12H IV 12/29/24 09:00 12/30/24 08:34 DC 12/29/24 09:20 20 MG Furosemide (LASix 40MG TAB) 40 mg BID@09,17 PO 01/10/25 17:00 02/09/25 16:59 01/14/25 08:33 40 MG Furosemide (LASix 40MG VIAL) 40 mg Q12H IV 01/08/25 20:00 01/10/25 09:57 DC 01/09/25 21:05 40 MG Furosemide 100 mg/ Sodium Chloride 100 ml @ 0 mls/hr PROTOCOL IV 12/29/24 14:30 01/08/25 13:45 DC 01/07/25 08:41 0 MLS/HR Glucagon (Glucagon 1mg Kit) 1 mg AD PRN IM HYPOGLYCEMIA PROTOCOL 12/28/24 14:00 01/27/25 13:59 Guaifenesin (MUCinex 600 MG TABLET.ER) 600 mg BID PRN PO COUGH 01/08/25 09:30 02/07/25 09:29 Guaifenesin/ Dextromethorphan (RobiTUSSin DM 200/20MG 10ML) 10 ml Q4H PRN PO COUGH 01/03/25 16:30 01/08/25 09:29 DC 01/07/25 08:25 10 ML Heparin Sodium (Porcine) (HEParin 5,000 UNIT VIAL) *calculation based on ACTUAL B... AD PRN IV HEPARIN PROTOCOL 12/24/24 02:30 12/28/24 13:54 DC 12/24/24 17:32 5,000 UNIT Heparin Sodium (Porcine) (HEParin 5,000 UNIT VIAL) 5,000 unit BID SQ 01/08/25 09:00 01/13/25 07:22 DC 01/12/25 21:40 5,000 UNIT Heparin Sodium/ Dextrose 250 ml @ 0 mls/hr Q6H IV 12/24/24 02:30 12/28/24 13:54 DC 12/27/24 17:04 11.3 MLS/HR Hydralazine HCl (APRESOLine 20MG INJ) 10 mg Q6H PRN IV For:SBP above 160;DBP above 90 12/24/24 03:00 12/28/24 13:54 DC Insulin Human Regular (humuLIN R 100 UNIT/ML 3ML) 10 unit ONCE STAT IV 12/30/24 11:42 12/30/24 11:45 DC 12/30/24 12:01 10 UNIT Insulin Human Regular (humuLIN R 100 UNIT/ML 3ML) 10 unit ONCE STAT SQ 12/30/24 11:36 12/30/24 11:43 DC Insulin Human Regular 100 unit/ Sodium Chloride 100 ml @ 0 mls/hr AD IV 12/28/24 14:00 12/29/24 17:55 DC 12/28/24 17:09 5 MLS/HR Ipratropium Brave (AtrovENT UD) 0.5 mg [id number] IH 12/30/24 12:00 01/29/25 11:59 01/14/25 11:24 0.5 MG Lactulose (Constulose 20gm/ 30ml Udcup) 20 gm BID PRN PO CONSTIPATION 12/24/24 03:00 12/28/24 13:54 DC 12/26/24 21:30 20 GM Lactulose (Constulose 20gm/ 30ml Udcup) 20 gm BID PRN PO CONSTIPATION 12/28/24 14:00 01/27/25 13:59 12/30/24 07:50 20 GM Lidocaine HCl/ Dextrose 250 ml @ 0 mls/hr AD PRN IV TITRATE 12/28/24 22:30 12/29/24 16:00 DC 12/29/24 06:53 15 MLS/HR Magnesium Hydroxide (Milk Of Magnesium 30ml) 30 ml DAILY PRN PO CONSTIPATION 12/28/24 14:00 01/27/25 13:59 12/30/24 10:18 30 ML Magnesium Sulfate 50 ml @ 12.5 mls/hr AD PRN IV MAG LEVEL LESS THAN 2.0 12/28/24 14:00 01/12/25 07:16 DC 12/28/24 18:42 12.5 MLS/HR Magnesium Sulfate 50 ml @ 0 mls/hr PROTOCOL PRN IV MAGNESIUM PROTOCOL 12/26/24 15:00 12/28/24 14:10 DC Magnesium Sulfate 50 ml @ 0 mls/hr PROTOCOL PRN IV MAGNESIUM PROTOCOL 01/12/25 07:30 02/11/25 07:29 Metolazone (zarOXOlyn) 5 mg ONCE PO 12/31/24 12:00 12/31/24 20:18 DC 12/31/24 12:01 5 MG Metolazone (zarOXOlyn) 5 mg ONCE PO 01/01/25 16:30 01/02/25 16:29 DC 01/01/25 16:53 5 MG Metoprolol Tartrate (loprESSOR) 12.5 mg BID PO 12/30/24 09:00 01/04/25 08:51 DC 01/03/25 20:09 12.5 MG Metoprolol Tartrate (loprESSOR) 25 mg BID PO 12/25/24 21:00 12/28/24 13:54 DC 12/28/24 09:28 25 MG Metoprolol Tartrate (loprESSOR) 25 mg TID PO 01/04/25 09:00 01/06/25 13:08 DC 01/06/25 09:27 25 MG Metoprolol Tartrate (loprESSOR) 50 mg BID PO 01/06/25 21:00 02/05/25 20:59 01/14/25 08:32 50 MG Morphine Sulfate (morPHINE 2MG SYG) 0.5 mg Q2H PRN IV MODERATE PAIN (4-6) 12/28/24 14:00 12/29/24 13:59 DC Morphine Sulfate (morPHINE 2MG SYG) 1 mg Q2H PRN IV SEVERE PAIN (7-10) 12/28/24 14:00 12/29/24 13:59 DC 12/28/24 17:05 1 MG Morphine Sulfate (morPHINE 2MG SYG) 2 mg Q4H PRN IVP SEVERE PAIN (7-10) 12/24/24 03:00 12/28/24 13:54 DC 12/26/24 02:43 2 MG Nitroglycerin (Nitroglycerin 1gm Oint) 0.5 inch Q8H5 TD 12/24/24 01:30 12/28/24 13:54 DC 12/27/24 12:57 0.5 INCH Nitroglycerin (Nitroglycerin 1gm Oint) 1 inch Q8H TD 01/04/25 15:00 02/03/25 14:59 01/14/25 06:21 1 INCH Nitroglycerin/ Dextrose 0 ml @ 0 mls/hr AD IV 12/28/24 14:00 12/31/24 14:00 DC Nitroglycerin/ Dextrose 0 ml @ 0 mls/hr AD PRN IV TITRATE 01/01/25 06:30 01/31/25 06:29 01/07/25 01:12 0 MLS/HR Norepinephrine Bitartrate 250 ml @ 0 mls/hr AD PRN IV TITRATE 12/27/24 11:00 01/26/25 10:59 01/04/25 06:14 0 MLS/HR Norepinephrine Bitartrate 8 mg/ Dextrose 250 ml @ 0 mls/hr AD PRN IV POST-OP CARDIOVASCULAR ORDERS 12/28/24 14:00 12/28/24 14:14 DC Nystatin (NYSTatin 238387 UNIT/ML 5ML UDCUP) 10 ml TID PO 01/07/25 21:00 02/06/25 20:59 01/14/25 08:29 10 ML Nystatin (NystOP 15 GM POWDER) APPLY TO PERINEAL AREA... BID TP 01/08/25 21:00 02/07/25 20:59 01/14/25 08:35 1 APPL Ondansetron HCl (zoFRAN 4MG INJ) 4 mg Q6H PRN IV NAUSEA/VOMITING 12/24/24 03:00 12/28/24 13:54 DC Ondansetron HCl (zoFRAN 4MG INJ) 4 mg Q6H PRN IV NAUSEA/VOMITING 12/28/24 14:00 01/27/25 13:59 12/30/24 11:01 4 MG Pantoprazole Sodium (PROTonix 40MG INJ) 40 mg BID IVP 01/05/25 09:00 02/04/25 08:59 01/14/25 08:29 40 MG Pantoprazole Sodium (PROTonix 40MG INJ) 40 mg Q12H IVP 01/02/25 05:00 01/05/25 04:04 DC 01/04/25 16:00 40 MG Phenol (Sore Throat [place]) 1 SPRAY Q4H PRN PO SORE THROAT 01/06/25 10:30 01/09/25 08:15 DC 01/06/25 16:37 1 SPRY Piperacillin Sod/ Tazobactam Sod (Zosyn 3.375gm+NS 50ml) 3.375 gm Q12H IV 12/30/24 15:30 01/05/25 04:05 DC 01/04/25 14:38 3.375 GM Piperacillin Sod/ Tazobactam Sod (Zosyn 3.375gm+NS 50ml) 3.375 gm Q12H IV 01/05/25 09:00 01/09/25 08:59 DC 01/08/25 20:35 3.375 GM Potassium Phosphate 250 ml @ 42 mls/hr AD PRN IV LOW PHOS LEVEL 12/28/24 14:00 01/27/25 13:59 12/29/24 06:12 42 MLS/HR Potassium Chloride 100 ml @ 100 mls/hr AD PRN IV POTASSIUM PROTOCOL 12/26/24 15:00 12/28/24 13:54 DC Potassium Chloride 100 ml @ 100 mls/hr AD PRN IV HYPOKALEMIA 12/28/24 14:00 01/12/25 07:19 DC 01/06/25 20:02 100 MLS/HR Potassium Chloride 100 ml @ 100 mls/hr AD PRN IV POTASSIUM PROTOCOL 01/08/25 08:30 02/07/25 08:29 Potassium Chloride 100 ml @ 100 mls/hr AD PRN IV POTASSIUM PROTOCOL 01/12/25 07:30 02/11/25 07:29 Potassium Chloride (K-Dur/Klor-Con 20meq) 20 meq AD PRN PO POTASSIUM PROTOCOL 12/26/24 15:00 12/28/24 13:54 DC 12/26/24 18:27 20 MEQ Potassium Chloride (K-Dur/Klor-Con 20meq) 20 meq AD PRN PO POTASSIUM PROTOCOL 01/12/25 07:30 02/11/25 07:29 Potassium Chloride (KCl 10% Elixir 20meq/15ml) 20 meq AD PRN PO POTASSIUM PROTOCOL 12/26/24 15:00 12/28/24 13:54 DC Potassium Chloride (KCl 10% Elixir 20meq/15ml) 20 meq AD PRN PO POTASSIUM PROTOCOL 01/12/25 07:30 02/11/25 07:29 01/13/25 06:24 20 MEQ Propofol 100 ml @ 0 mls/hr AD PRN IV SEDATION 12/28/24 14:00 01/01/25 13:59 DC Sodium Polystyrene Sulfonate (kayEXALate 15 GM/60 ML) 30 gm ONCE STAT PO 12/30/24 11:36 12/30/24 11:39 DC 12/30/24 11:45 30 GM Sodium Bicarbonate (Sodium Bicarb 50meq 50ml Vial) 50 meq AD PRN IV OTHER[SEE DOSING INSTRUCTIONS] 12/28/24 14:00 12/31/24 14:00 DC 12/30/24 12:45 100 MEQ Sodium Chloride 500 ml @ 0 mls/hr AD IV 12/28/24 14:00 01/27/25 13:59 Sodium Chloride 1,000 ml @ 10 mls/hr ONCE IV 12/28/24 14:00 12/29/24 13:59 DC 12/28/24 17:06 10 MLS/HR Sodium Chloride (NS Flush 10ml) 10 ml Q8H PRN IVP IV LINE FLUSH 12/28/24 14:00 01/27/25 13:59 Sodium Chloride (Sodium Chloride 3% Inh) 4 ML [id number] IH 01/04/25 12:00 02/03/25 11:59 01/14/25 11:24 4 ML Tramadol HCl (UltRAM) 25 mg Q6H PRN PO MODERATE PAIN (4-6) 12/28/24 14:00 12/29/24 13:56 DC 12/29/24 11:05 25 MG Tramadol HCl (UltRAM) 50 mg Q6H PRN PO SEVERE PAIN (7-10) 12/28/24 14:00 12/29/24 13:56 DC Vasopressin 20 units/Sodium Chloride 100 ml @ 0 mls/hr PROTOCOL IV 12/30/24 15:30 01/29/25 15:29 12/31/24 10:40 6 MLS/HR Wound Care/ Dressing Products (Venelex Ointment) apply to buttocks and scrotum BID TP 01/11/25 21:00 02/10/25 20:59 01/14/25 08:34 1 GM DIAGNOSTICS / RADIOLOGY: [ ] ASSESSMENT: Multi-vessel coronary artery disease status post CABG 12/28/2024 Non-STEMI. 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 Hypertension. Anemia. ERICK possibly due to ATN New onset atrial fibrillation, not POA PLAN: ACS NSTEMI due to Multi vessel CAD, s/p CABG 12/28/2024 * Continue aspirin, atorvastatin * Argatroban drip is stopped and patient is started on p.o. clopidogrel by Cardiology * Encouraged to use IS and to clear the secretions and use p.r.n. benzocaine spray for throat irritation Leukocytosis, suspected due to dexamethasone * His white cell count is 11.5 k * CRP is elevated, 20 * Ordered influenza and COVID-19 testing, tested negative * Blood cultures ordered on showed no growth so far * Ordered repeat blood cultures as lactic acid is uptrending * Speech evaluation concluded he has no aspiration and is currently on a heart healthy diet * We will follow up with the labs and continue to monitor Lactic acidosis, suspected type B due to regional hypoperfusion to left foot * Lactic acid today was elevated at 4 * Patient white count is 11.5k and is hemodynamically stable * Urinalysis is negative for UTI * Blood cultures sent on 01/12 showed no growth so far * We discontinued his PICC line * Ordered repeat blood cultures and started IV Rocephin 2g Q 24 * Will continue to monitor Erythematous scraped lesion on the base of scrotum on the right side, most likely due to scratching from fungal infection * 3 mm circular scraped lesion found on the base of scrotum on right side with minor bleeding * Patient is currently using nystatin powder between the thighs and on scrotum * Patient denies pain and there is no tenderness to palpation * Patient reports scratching in that area * Instructed the nurse to dress the area with gauze to prevent friction on the scrotum * Ordered scrotal support * We will continue to monitor for progression Hyperglycemia, resolved * Patient's blood glucose is 180s today * Patient is not diabetic and his Hba1c on admission was 5.8 * Tapered dexamethasone completely * Advised tos stop drinking ensure drinks containing added sugars HFrEF LV ejection fraction 25-30% by echo on 01/01/2025 * Patient LVEF is 25-30% by echocardiography, down from 50-55% on 12/27/24 * Lasix drip is weaned off and patient is started on Lasix 40 mg PO Q12H by Nephrology * Resume GDMT for heart failure when weaned from pressors and more stable * Strict I&O and daily weights 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 Still complains of pulsatile burning pain on the medial aspect of left foot * Patient underwent left lower extremity femoral thrombectomy on 01/01, after finding monophasic waveforms be on popliteal artery by arterial Doppler * Continue atorvastatin and aspirin * Continue nitroglycerin paste and regular dressing changes by cold mill inspector * Patient can ambulate with the use of a CAM walking boot with physical therapy with a walker as per cold mill inspector * Monitor leg perfusion, pulses, swelling, and discoloration Anemia, post CABG * Patient received 4 units of packed RBCs * Iron panel showed Iron 20, % Sat 5.5, TIBC 360 indicating Iron deficiency, received 2 doses of IV Venofer * Patient hemoglobin is stable at 10.9 * Monitor CBC daily in the a.m. daily * Monitor for signs of bleeding Acute on chronic renal dysfunction * Patient has good urine output * Creatinine Improved from 5.9 to 5.2 * Monitor CBC and electrolytes in the a.m. daily * Avoid nephrotoxic agents New onset atrial fibrillation, not POA * Amiodarone 200 mg p.o. as per Cardiology recommendation * Continue Eliquis 2.5 mg BID * Currently in sinus rhythm GI prophylaxis with Protonix 40 mg IV Continue DVT prophylaxis with heparin 5000 SQ b.i.d. ATTESTATION BY PHYSICIAN I have seen and examined the patient. I reviewed the documentation, medical decision making, and treatment plan as noted by the resident provider above. I agree with the findings and plan of care. Arnulfo Rios MD, HARSHAVARDHA MD Jan 14, 2025 14:15
--- NOTE | 2025-01-14 17:29 | PN ---
SUBJECTIVE: The patient is postop day #17 from a coronary artery bypass grafting. The patient is doing well from a cardiac standpoint. He is slow to rehab due to ischemic damage to his left foot. OBJECTIVE: VITAL SIGNS: Reveal temperature 98.6, blood pressure is 142/87, pulse is 71, respirations 18, oxygen saturations are 97% on room air. HEENT: Reveals to be normocephalic, atraumatic. Extraocular movements intact. CHEST: His sternal wound is healing well. His chest tubes are out. HEART: S1, S2 and regular. LUNGS: Unlabored at rest, off of oxygen. ABDOMEN: Soft and nontender. EXTREMITIES: His left foot is wrapped with Kerlix. ASSESSMENT AND PLAN: * Status post coronary artery bypass grafting. Continue amiodarone, Eliquis, and antiplatelet therapy. Continue metoprolol. Continue cardiac rehab. Home once the patient is self-sufficient with his ambulation. * Hypercholesterolemia. Lipitor 40 mg p.o. at bedtime. * DVT prophylaxis. The patient should be covered with his Eliquis. TID: [id number] RECEIPT: [id number]
[2025-01-15] VITALS (16 sets, daily range): BP systolic 131–149; BP diastolic 85–101; PULSE 65–90; RESP 16–20; TEMP 97.6–98.2; O2SAT 98–100
[2025-01-15 04:09] LABS: IMMATURE GRANULOCYTE ABSOLUTE 0.21 K/uL (0-1); NUCLEATED RED BLOOD CELLS 0.0 % (0.0-0.19); PLATELET COUNT (AUTO) 632 K/uL (130-400); RED BLOOD CELL COUNT(AUTO) 4.66 MIL/uL (4.50-6.20); RED CELL DISTRIBUTION WIDTH 25.3 % (11.0-15.5); WHITE BLOOD COUNT (AUTO) 13.3 K/uL (4.8-10.8)
[2025-01-15 04:32] LABS: CREATININE 4.4 mg/dL (0.5-1.3); GLOMERULAR FILTR. RATE CALC 15.0 mL/min (>90); GLUCOSE,RANDOM 112.0 mg/dL (70-105); SODIUM SERUM 134.0 mmol/L (136-145)
[2025-01-15 04:53] LABS: UREA NITROGEN, BLOOD 116.0 mg/dL (7-18)
--- NOTE | 2025-01-15 12:19 | PN ---
SUBJECTIVE: The patient is a 54-year-old male who is seen on date of service 01/15/2025. He is a 54-year-old male. He currently has a T-max 97.9, pulse 77, respirations 16, blood pressure 135/95. White count 13.3, H and H 12.2 and 37.9, platelets 632, and neutrophils 76.5. Currently not receiving any antibiotic therapy other than ceftriaxone 2 g every 24 hours. The patient is being followed by the Nephrology Service. He currently has a BUN and a creatinine level of 116 and 4.4. Per Nephrology, the patient requires no renal replacement therapy. The patient has been followed by the Cardiothoracic Surgery Service. Cardiothoracic Surgery feels the patient may be discharged to home once he is self-sufficient with ambulation. The patient is being followed by Cardiology. The patient continues to be receiving Eliquis. He is status post coronary artery bypass grafting 12/28/2024, removal of an intraaortic balloon pump and thrombectomy 12/31/2024. Lower extremity ischemia on the left appears to be embolic in nature. He has strongly audible Doppler pulses on that left side. He has acute on chronic combined heart failure with an ejection fraction of 25-30%, cardiorenal syndrome, acute renal failure, hypertension, anemia, and hypokalemia. OBJECTIVE: Examination today, dry necrotic eschar in the entirety of his digits 1, 2, 3, 4, and 5 on the left. Blister and hemorrhagic lesions to the dorsal aspect of the forefoot bilaterally. Digits are cold. Audible Dopplers of the anterior tibial and posterior tibial on that left side. ASSESSMENT: This is a 54-year-old male status post thrombectomy, removal of an intraaortic balloon pump after a 4-vessel coronary artery bypass graft procedure, acute renal failure, new-onset atrial fibrillation, demarcating necrosis of the digits of the left foot in the presence of audible Dopplers to the anterior and posterior tibial pulses on the left, and bulla to the dorsal and plantar aspects of the midfoot and forefoot on the left, acute renal failure being followed by Nephrology. No need for renal replacement therapy from their standpoint. The patient has been evaluated for outpatient placement. The patient is ambulating with a surgical shoe on the left foot with physical therapy. PLAN: We will continue to monitor the patient closely for the ischemic changes of all digits of the left foot that appear to be worsening. He remains afebrile. His blood cultures have been negative. His white count is 13.3. He is receiving IV ceftriaxone. We will continue with IV ceftriaxone. Continue to monitor the ischemic changes to his foot. I see no need for surgical intervention at this point to his left foot. The tissue is continuing to demarcate. From my standpoint, he will be discharged to home and okay with other services and follow up with a doctor in his area in the [facility] [address] [facility] after discharge. TID: [id number] RECEIPT: [id number]
--- NOTE | 2025-01-15 13:22 | PN ---
[facility] CARDIOLOG[facility] PROGRESS NOTE Date Patient Seen: Jan 15, 2025 Time of Visit: 13:19 Interval History: No acute events overnight. Renal function continues to improve creatinine currently at 4.4. Patient is sitting comfortably in his recliner, currently denies any chest pain, palpitations, dyspnea or any other anginal equivalents. Pending rehab placement Physical Examination: GENERAL: [No acute distress.] NECK: R CVC LUNGS: [ diminished inspiratory effort. No wheezes, or rhonchi.] HEART: [Normal rate and rhythm. Normal S1 and S2 without murmurs, gallop or rub.] VASC: [Peripheral pulses +1 bilaterally. blistering to distal left foot with ecchymoses to distal digits] ABD: soft, nontender SKIN: [ecchymoses, blistering to LLE distal digits. sensation and motor function intact NEURO: [Awake, alert , moves all extremities.] Laboratory: [ ] Hematology Labs: Test 01/15/25 03:44 Range/Units White Blood Count 13.3 H 4.8-10.8 K/uL Red Blood Count 4.66 4.50-6.20 MIL/uL Hemoglobin 12.2 L 14.0-18.0 g/dL Hematocrit 37.9 L 42-54 % Mean Corpuscular Volume 81.3 79-99 fL Mean Corpuscular Hemoglobin 26.2 L 27.0-33.0 pg Mean Corpuscular Hemoglobin Concent 32.2 32.0-36.0 g/dL Red Cell Distribution Width 25.3 H 11.0-15.5 % Platelet Count 632 H 130-400 K/uL Mean Platelet Volume 11.1 H 7.5-10.5 fL Immature Granulocyte % (Auto) 1.6 H 0-1 % Neutrophils (%) (Auto) 76.5 40.0-77.0 % Lymphocytes (%) (Auto) 11.8 L 21.0-51.0 % Monocytes (%) (Auto) 9.4 3.0-13.0 % Eosinophils (%) (Auto) 0.5 0.0-8.0 % Basophils (%) (Auto) 0.2 0.0-5.0 % Neutrophils # (Auto) 10.2 H 1.8-7.7 K/uL Lymphocytes # (Auto) 1.6 1.0-4.8 K/uL Monocytes # (Auto) 1.3 H 0.1-1.0 K/uL Eosinophils # (Auto) 0.06 0.00-0.70 K/uL Basophils # (Auto) 0.02 0.00-0.20 K/uL Absolute Immature Granulocyte (auto 0.21 0-1 K/uL Nucleated Red Blood Cells 0.0 0.0-0.19 % Chemistry Labs: Test 01/15/25 11:15 01/15/25 03:44 01/14/25 14:58 01/14/25 11:25 Range/Units Whole Blood Glucose 128 H 70-110 MG/DL Sodium Level 134 L 136-145 mmol/L Potassium Level 3.2 L 3.5-5.1 mmol/L Chloride Level 96 L 101-111 mmol/L Carbon Dioxide Level 26 21-32 mmol/L Blood Urea Nitrogen 116 *H 7-18 mg/dL Creatinine 4.4 H 0.5-1.3 mg/dL Glomerular Filtration Rate Calc 15 >90 mL/min Random Glucose 112 H 70-105 mg/dL Total Calcium 8.0 L 8.5-10.1 mg/dL Lactic Acid Level 3.1 H 0.8-2.5 mmol/L C-Reactive Protein, Quantitative 20.40 H 0.5-3.0 mg/L Diagnostics / Radiology: [Copy/Paste Echos/Imaging Report here] Impression and Plan: ACS-NSTEMI MVCAD s/p CABG with VG-RCA, VG-OM, TORRES-LAD and VG-distal LAD LLE ALI while IABP in place, status post femoral thrombectomy, placed on argatroban. New onset atrial fibrillation with rapid ventricular response, converted. Hypertension ICMP LVEF 25-30% Acute renal failure without dialysis #ACS-NSTEMI on presentation Patient presented as a transfer for admission due to NSTEMI Presenting hemoglobin was 7.1 g, underwent EGD was negative for active bleeding or ulcers Coronary angiogram revealing multivessel CAD CV surgery was consulted for CABG s/p 4 v CABG and insertion of aortic balloon pump with VG-RCA, VG-OM, TORRES-LAD and VG-distal LAD Removal of IABP 12/31 Defer the use of nephrotoxic medications due to acute kidney injury Creatinine improving currently at 4.4 Continue Khooht05 mg daily, ASA 81 mg daily, Lopressor 50 mg every12 hours and atorvastatin 40 mg q.h.s. Rest of care by CV surgery #HFmrEF ICM-LVEF 25-30%- NYHA II Euvolemic and compensated on exam 2D echocardiogram (01/01/2025) LVEF 25-30%, hypokinetic anterior wall and apex. Strict I's and O's and daily weights. Overnight urine output 1850 mL, net-1510 mL Continue Lasix 40 mg po every 12 hours GDMT: Continue Lopressor 50 mg every12 hours Unable to optimize GDM T any further due to worsening renal function (nephrology is following) # paroxysmal atrial fibrillation Documented episode atrial fibrillation with RVR on 01/04/2025 Initially cardioverted with amiodarone bolus and infusion Current review of telemetry sinus rhythm with a heart rate of 82 beats per minute with no events overnight We will recommend Eliquis once deemed safe by CV surgery Continue Lopressor 50 mg every 12 hours, amiodarone 200 mg daily Keep on telemetry, monitor/replace electrolytes as needed ( Mg >2 , K > 4 ) Thank you for this consult cardiology will continue to follow along Kane Xiao MD ATTESTATION BY PHYSICIAN I have seen and examined the patient, reviewed the above documentation, particip ated in medical decision making, made necessary modifications, and agree with the treatment plan as documented by my mid-level provider above. MD IRASEMA Alas JAMES R MD Jan 15, 2025 13:22
--- NOTE | 2025-01-15 14:01 | PN ---
[facility] PROGRESS NOTE Date of Service: Jan 15, 2025 Time of Service: 14:01 SUBJECTIVE: This is a 54-year-old male who presented to [facility] with a non-STEMI. He underwent left heart catheterization which showed severe multi-vessel coronary artery disease with mid to apical inferior hypokinesis, LVEF 45-50%. He underwent echocardiogram 12/19/2024 which showed an ejection fraction of 55- 60%, mild LVH, normal-sized left atrium, mild mitral valve regurgitation and mild tricuspid valve regurgitation. He was transferred to [facility] for CABG. 12/25 patient remains admitted to the PCU, case discussed with the RN, no acute events overnight, he denied chest pain, shortness shortness for breath, no nausea, no vomiting, no abdominal discomfort. Cardiology input noted and appreciated, patient to continue aspirin 81 mg p.o. daily and atorvastatin 40 mg p.o. daily. Continue metoprolol tartrate 25 mg p.o. b.i.d.. Pending evaluation by CT surgery for consideration for CABG. Discussed with the patient. 12/26 patient remains admitted to the PCU, case discussed with the RN, no acute events overnight, the time of my visit the patient is comfortably in bed, alert oriented x3, eating breakfast, tolerating well, denies nausea, no vomiting, no abdominal discomfort, he denies chest pain, no shortness a breath. Remains on aspirin 81 mg p.o. daily, atorvastatin and metoprolol 25 mg p.o. b.i.d.. Pending evaluation by CT surgery for consideration of CABG. 12/27 patient is seen and examined at bedside, case discussed with the RN, no acute events overnight, currently the patient NPO, scheduled for CABG today by Cardiothoracic surgeon. We will continue to follow. 12/28 patient is seen and examined at bedside, case discussed with the RN, no acute events overnight, currently the patient NPO, scheduled for CABG today by Cardiothoracic surgeon. We will continue to follow. 12/29 patient is seen and examined at bedside, remains admitted to the ICU, postoperative day 1., status post CABG 12/28/2024, patient on insulin drip, nitroglycerin drip, alert oriented x3 following commands, however was mildly agitated earlier this morning, motion with the RN started on Precedex. Patient with chest tube in place. Further recommendations per Cardiothoracic surgeon. 12/30 patient remains admitted to the ICU, case discussed with the RN, patient remains confused, trying to pull his IV lines, remains on Precedex. Throughout the balloon pump in place, just to be breath, remains on epinephrine, Levophed, Lasix drip, dobutamine drip. Creatinine today at 3.0. Nephrology consultation requested, we will follow input and recommendation. Continue to monitor liver enzymes in a.m., follow ammonia level (at the time of my dictation less than 10). Continue to follow critical care input and recommendation. Prognosis remains guarded. 12/31 54-year-old male who was transferred from [facility] with a non- STEMI. He underwent left heart catheterization which showed severe multi-vessel coronary artery disease with mid to apical inferior hypokinesis, LVEF 45-50%. He underwent echocardiogram 12/19/2024 which showed an ejection fraction of 55- 60%, mild LVH, normal-sized left atrium, mild mitral valve regurgitation and m ild tricuspid valve regurgitation. He was transferred to [facility] for CABG. Cardiothoracic surgeon consultation requested, patient underwent CABG 12/28/2024. Continue to follow Cardiothoracic input and recommendations. Patient has been mildly confused post procedure, started on Precedex. 01/01 54-year-old male who was transferred from [facility] with a non- STEMI. He underwent left heart catheterization which showed severe multi-vessel coronary artery disease with mid to apical inferior hypokinesis, LVEF 45-50%. He underwent echocardiogram 12/19/2024 which showed an ejection fraction of 55- 60%, mild LVH, normal-sized left atrium, mild mitral valve regurgitation and mild tricuspid valve regurgitation. He was transferred to [facility] for CABG. Cardiothoracic surgeon consultation requested, patient underwent CABG 12/28/2024. At the time of my visit resting comfortably in bed, off Precedex, following commands, status post interval removal of intra-aortic balloon pump yesterday, remains on dobutamine and nitroglycerin drip as well as argatroban. Continue to follow critical Care and Cardiothoracic input and recommendations. 01/02/25: Patient was evaluated at the bedside. Today is postop Day 5 and he is recovering well. Patient underwent thrombectomy in the femoral artery of left lower extremity and removal of intra-aortic balloon pump yesterday. Patient has mottled appearance in the left great toe and dorsalis pedis pulsations are present. His chest tube output was 320 mL over the last 24 hours. His stool was positive for occult blood and a GI consult has been placed. Cardiology advised to continue the current treatment. Patient is weaned off Levophed and is currently on Lasix, dobutamine, nitroglycerin, and argatroban drips. A swallow test will be performed today to evaluate the need for removing NG tube. 01/03/25: Patient was evaluated at the bedside, this is postop day 6 and is recovering well. Patient has mottled appearance in the left great toe extending into all the digits. Dorsalis pedis pulsations were diminished with palpation but detected on Doppler. His chest tube output was 310 mL today. A GI consult was placed for occult blood however no intervention was recommended and advised to continue Protonix 40 mg. Nephrology recommended no renal replacement as alicia ent has good urine output,3 L today and is responding well to diuresis. Patient is continued on Lasix, dobutamine, nitroglycerin, and argatroban drips. NG tube was removed and patient was started on pureed heart healthy diet as tolerated. 01/04/2025: Patient was evaluated at the bedside, this is postop day 7. Patient had an episode of AFib with rapid ventricular response this morning and was cardioverted with amiodarone and continued on drip. Patient's left leg discoloration has improved, but still has diminished pulses only detected by Doppler. His chest tube output is 140 mL. Patient's ERICK has been worsening with creatinine 7.8 today however he has adequate urine output, 3.5 L today. Cardiology recommended to reduce Lasix drip to 2.5 and nephrology advised that patient's creatinine is stabilizing and renal function will improve in the next few days. Patient is still continuing on argatroban, nitro, and dobutamine drips. Otherwise patient has been recovering well tolerating pureed food and only complains of occasional throat pain due to cough. He was encouraged to cough to clear the chest secretions and use p.r.n. benzocaine spray for relief. His chest x-ray shows clearing pleural effusion and pulmonary edema. 01/05/2025: Patient was evaluated at the bedside and this is postop day. Patient has been in sinus rhythm since the AFib episode this morning. IV amiodarone was stopped and transitioned to p.o. 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 Nurse Midwife/Clinical Instructor recommended applying nitroglycerin paste and and covered it in dressing. Patient's ERICK continues to worsen, creatinine 8.2 today. However he is maintaining a good urine output, 2500 today. He has been weaning of Lasix drip. Patient has been encouraged to use incentive spirometry and cough as tolerated to clear the chest secretions. Chest x-ray showed no evidence of pulmonary venous congestion today. 01/06/2025: Patient was evaluated at the bedside, he was sitting comfortably in his chair. Patient has been in sinus rhythm. Patient continues on argatroban, Lasix, and dobutamine drips. Patient's ERICK seemed to be stabilizing his creati nine is 8.3 compared to 8.2 yesterday. Patient is maintaining good urine output, 2L in the last 24 hours. Patient's left foot was covered in dressing. Dr. Persaud evaluated the patient today and recommended walking boot with dressing if he is cleared by Cardiology for ambulation. His demarcating necrosis of the distal aspects of digits 1, 2, 3, and 4 on the left side seemed to be improving. Dr. Persaud recommended to continue nitroglycerin paste. Patient encouraged to use incentive spirometry and cough and was asked to use benzocaine for relief from throat pain. 01/07/2025 - patient seen at bedside in room 215 , patient is alert awake and oriented. Patient continues to be on argatroban, Lasix drips, his acute kidney injury possibly secondary to ATN secondary to hypotensive episode seems resolving while maintaining good urine output. Patient still complains of cough, pain in the left lower extremity. Patient's phosphorus trended down to 6.8 And anion gap closed down to 12 today. Patient currently hemodynamically stable and we will continue to monitor closely. 01/08/2025 Patient is seen and examined at the bedside. Awake alert and oriented and sitting comfortably in the chair. Argatroban drip is discontinued and patient is started on Heparin for DVT prophylaxis and Plavix 75 mg [for NSTEMI] by cardiology. Vitals blood pressure ranging in 110/80s, pulse rate 80s, respiratory rate in 20s to 30s, SpO2 greater than 95% on room air. Patient had an episode of AFib today. Currently in sinus rhythm. Chest tube and arterial line are discontinued as per CT is recommendations. Urine output 1.8 L. He still complains of productive cough, poor appetite. Labs hemoglobin stable at 10.1, potassium low at 3.1, BUN 93, creatinine improved from 7.9-7.5. Chest x-ray revealed no evidence of airspace consolidation or pulmonary venous congestion. 01/09/25: Patient was seen and evaluated at the bedside. He was awake, alert, and oriented to time place and person. Patient had been in sinus rhythm and had no acute events overnight. His vitals have been stable and only complains of throat pain. His creatinine is improving, 7.4 from 7.5 yesterday. He is maintaining good urine output of 2 [place] [id number] today and is receiving Zosyn. His chest x-ray showed trace left pleural effusion. Still has productive cough and a poor appetite. Speech evaluation was placed for tomorrow for suspected aspiration. Testing for influenza and COVID-19 were placed. 01/10/25 patient was seen patient was sitting in chair receiving his neb treatment. Patient denied chest pain or shortness for breath. 01/11/25: Patient was seen and evaluated at the bedside in room 205. Patient was downgraded to medical floor and is recovering well from his surgery. Improving in his creatinine is at 6.6 from 6.9 yesterday. Is maintaining a good urine output of 1975 mL yesterday. His demarcating necrosis of the left foot is improving with gradually receding necrotic tissue. His bilateral pedal pulses are present with Doppler. We will have speech therapist evaluate with barium swallow for consideration of advancing diet from pureed food. 01/12/25: Patient was seen and evaluated at the bedside in room 205. Patient was sitting comfortably in the chair. Patient had no acute events overnight. Patient reports he is feeling much better and denies chest pain, shortness of breath, dizziness. Patient blood sugars were high today at 295. Patient was noted to be drinking ensure protein drinks containing added sugars with his breakfast. He has been also taking 7 doses of Decadron 4mg so far. Patient was advised not to drink the ensure drinks for now and we will taper the Decadron in 2 days. His lactic acid is elevated at 3.6 and has an anion gap metabolic acidosis. We will order a UA with microscopy and culture. Case management is working on the placement to a SNF and will follow their recommendations. 01/13/2025: Patient was evaluated at the bedside in room 205. Patient was lying comfortably in his bed with head end elevated. He had no acute events overnight. He is currently being tapered off dexamethasone. Patient denies chest pain, shortness of breath, dizziness and only has a mild sore throat. Blood glucose was controlled and 160s this morning. Patient was asked to drink ensure and instead we will be given glucerna. His demarcating necrosis of the left foot is improving and only has a couple of fluid-filled blisters on the toes. Patient's lactic acid today is a 3.7. Patient has normal white blood cell count, normal procalcitonin and has no fever. Blood and urine cultures results are still pending. Patient is pending rehab placement. 01/14/2025: Patient was evaluated at the bedside in room 205. Patient was sitting comfortably in his chair. Had no acute events overnight. Patient blood glucose is well controlled and today it is 182. His ERICK is improving from 5.2- 4.5 today and is maintaining a good urine output of 700 mL. Patient's lactic acid is elevated at 4, CRP 20 and he had up trending white cell count which is 11.5 today. Patient is afebrile and denies any chills, night sweats, pain at the IV site, nausea, vomiting, and diarrhea. Patient was started on Rocephin and discontinued his PICC line. A new blood culture was ordered today. Patient is still recovering from demarcating necrosis of the left foot after undergoing femoral thrombectomy and still complains of burning pulsatile pain in the left foot. We are considering his elevated lactic acid is due to regional hypoperfusion causing type B lactic acidosis however we will continue to evaluate for other sources of infection. In the evening patient also complained of a lesion on the bottom of his right side scrotum with a minor bleeding. Patient reports that he had increased itching sensation in the area and has been using nystatin powder. Patient is pending placement for rehab at [facility]. 01/15/25 Patient is seen and examined at the bedside. Vitals blood pressure ranging in 140/90s, pulse rate 80s, respiratory rate, SpO2 greater than 95% on room air. Urine output 1.5 L. No acute events last night. He complains of pulsating pain in the left limb. He is able to tolerate oral feeds without any nausea/vomiting. Labs WBC increased from 11.5-13.3, hemoglobin stable around 12.2, platelets 632, sodium 134, chloride 96, potassium low at 3.2, BUN 116, creatinine improved from 5.2- 4.4, blood glucose 112. Blood cultures are negative. Urinalysis negative for leukocyte esterase, nitrates. Pending rehab placement. REVIEW OF SYSTEMS CONSTITUTIONAL: Denies fevers, chills, or night sweats. No unintentional weight loss reported., Throat irritation NEUROLOGICAL: Denies headache, amaurosis fugax, motor weakness, sensory deficit, vertigo/spinning sensation, gait abnormalities, or tremors. CARDIOVASCULAR: Denies any exertional angina, dyspnea on exertion, orthopnea, paroxysmal nocturnal dyspnea, palpitations, life-threatening arrhythmias, claudication. PULMONARY: Denies any shortness of breath, hemoptysis, pleuritic chest pain. Patient has cough with clear sputum, improving GASTROINTESTINAL: Denies any type of dysphagia to either liquids or solids. Denies nausea, vomiting, pyrosis, early satiety, abdominal pain, diarrhea, constipation, or changes in stool consistency or caliber. GENITOURINARY: Denies frequency, urgency, nocturia, hematuria or incontinence. Andres removed. Complains of itching on the inner thighs and under scrotum. PHYSICAL EXAM GENERAL APPEARANCE: Patient is alert, oriented, and comfortable lying down and sitting. NECK: Supple. No JVD. CHEST: Normal chest expansion. Telemetry in place. LUNGS: Absence of any rales, rhonchi or any wheezing. Chest tube in place. CARDIOVASCULAR: Regular. S1 and S2 normal. No appreciable rubs, murmurs or gallops. ABDOMEN: Soft, nontender, and nondistended. There is no rebound, voluntary guarding, or rigidity. : Deferred. No Andres. Mild erythematous lesion present under the scrotum on right side EXTREMITIES: LLE pulses present per Doppler, left toes and foot covered in dressing. Vital Signs (last 8hr) Date Time Temp Pulse Resp B/P (MAP) Pulse Ox O2 Delivery O2 Flow Rate FiO2 01/15/25 13:36 88 137/95 Room Air 01/15/25 12:00 97.9 90 20 136/101 100 Room Air 01/15/25 11:31 80 18 N/A Room Air 01/15/25 11:29 80 18 01/15/25 11:25 100 Room Air* 0 01/15/25 07:53 97.9 77 16 135/95 99 Room Air 01/15/25 07:07 82 18 N/A Room Air 01/15/25 07:07 82 18 LABS: Laboratory: Test 01/15/25 11:15 01/15/25 03:44 01/14/25 14:58 01/14/25 11:25 Range/Units Whole Blood Glucose 128 H 70-110 MG/DL White Blood Count 13.3 H 4.8-10.8 K/uL Red Blood Count 4.66 4.50-6.20 MIL/uL Hemoglobin 12.2 L 14.0-18.0 g/dL Hematocrit 37.9 L 42-54 % Mean Corpuscular Volume 81.3 79-99 fL Mean Corpuscular Hemoglobin 26.2 L 27.0-33.0 pg Mean Corpuscular Hemoglobin Concent 32.2 32.0-36.0 g/dL Red Cell Distribution Width 25.3 H 11.0-15.5 % Platelet Count 632 H 130-400 K/uL Mean Platelet Volume 11.1 H 7.5-10.5 fL Immature Granulocyte % (Auto) 1.6 H 0-1 % Neutrophils (%) (Auto) 76.5 40.0-77.0 % Lymphocytes (%) (Auto) 11.8 L 21.0-51.0 % Monocytes (%) (Auto) 9.4 3.0-13.0 % Eosinophils (%) (Auto) 0.5 0.0-8.0 % Basophils (%) (Auto) 0.2 0.0-5.0 % Neutrophils # (Auto) 10.2 H 1.8-7.7 K/uL Lymphocytes # (Auto) 1.6 1.0-4.8 K/uL Monocytes # (Auto) 1.3 H 0.1-1.0 K/uL Eosinophils # (Auto) 0.06 0.00-0.70 K/uL Basophils # (Auto) 0.02 0.00-0.20 K/uL Absolute Immature Granulocyte (auto 0.21 0-1 K/uL Nucleated Red Blood Cells 0.0 0.0-0.19 % Sodium Level 134 L 136-145 mmol/L Potassium Level 3.2 L 3.5-5.1 mmol/L Chloride Level 96 L 101-111 mmol/L Carbon Dioxide Level 26 21-32 mmol/L Blood Urea Nitrogen 116 *H 7-18 mg/dL Creatinine 4.4 H 0.5-1.3 mg/dL Glomerular Filtration Rate Calc 15 >90 mL/min Random Glucose 112 H 70-105 mg/dL Total Calcium 8.0 L 8.5-10.1 mg/dL Lactic Acid Level 3.1 H 0.8-2.5 mmol/L C-Reactive Protein, Quantitative 20.40 H 0.5-3.0 mg/L Current Medications Medications (Trade) Dose Ordered Sig/Mila Route PRN Reason Start Time Stop Time Status Last Admin Dose Admin Acetaminophen (TYLenol 325MG TAB) 650 mg Q4H PRN PO Temp >38.3C(AFTER EXTUBATION) 12/28/24 14:00 01/27/25 13:59 Acetaminophen (TYLenol 325MG TAB) 650 mg Q6H PRN PO MILD PAIN (1-3) 12/24/24 01:30 12/28/24 13:57 DC 12/27/24 23:45 650 MG Acetaminophen (TYLenol 325MG TAB) 650 mg Q6H PRN PO TEMPERATURE GREATER THAN 101.5 12/24/24 03:00 12/28/24 14:10 DC Acetaminophen (TYLenol 325MG TAB) 650 mg Q6H PRN PO MILD PAIN (1-3) 12/28/24 14:00 01/27/25 13:59 01/05/25 20:03 650 MG Acetaminophen (TYLenol 650MG SUPPOSITORY) 650 mg Q4H PRN RC Temp >38.3C WHILE INTUBATED 12/28/24 14:00 01/07/25 19:35 DC Acetaminophen (acetaMINOPHEN) 1,000 mg Q6H6 IV 12/28/24 18:00 12/29/24 17:59 DC 12/29/24 17:27 1,000 MG Acetaminophen (acetaMINOPHEN) 1,000 mg Q6H6 IVPB 12/30/24 00:00 12/31/24 20:14 DC 12/30/24 18:16 1,000 MG Albumin Human 250 ml @ 0 mls/hr AD PRN IV IF HEMODYNAMICALLY UNSTABLE 12/28/24 14:00 12/29/24 09:28 DC 12/29/24 09:28 250 MLS/HR Albuterol (DUOneb) 1 UDVIAL [id number] IH 01/01/25 18:00 01/01/25 15:25 DC Albuterol Sulfate (Proventil 0.083% 2.5mg/3ml) 2.5 mg ONCE STAT IH 12/30/24 10:22 12/30/24 10:32 DC 12/30/24 10:43 2.5 MG Aminocaproic Acid 03870 mg/Sodium Chloride 310 ml @ 25 mls/hr AD IV 12/28/24 14:00 12/28/24 14:14 DC Aminocaproic Acid 94622 mg/Sodium Chloride 480 ml @ 0 mls/hr AD PRN IV BLEEDING CONTROL 12/27/24 11:00 01/07/25 19:35 DC Amiodarone HCl (pacERONE 200MG) 200 mg DAILY PO 01/05/25 09:00 02/04/25 08:59 01/15/25 11:27 200 MG Amiodarone HCl 150 mg/Dextrose 103 ml @ 618 mls/hr ONCE IV 01/04/25 06:30 01/04/25 06:21 DC Amiodarone HCl 360 mg/Dextrose 207.2 ml @ 33.3 mls/hr AD IV 01/04/25 06:30 01/04/25 06:21 DC Amiodarone HCl 540 mg/Dextrose 310.8 ml @ 16.7 mls/hr [id number] IV 01/04/25 06:30 01/09/25 09:26 DC 01/04/25 13:01 16.7 MLS/HR Apixaban (EliquIS 2.5 mg) 2.5 mg BID PO 01/13/25 09:00 02/12/25 08:59 01/15/25 11:27 2.5 MG Apixaban (EliquIS) 5 mg HS PO 01/07/25 21:00 01/07/25 19:35 DC Argatroban 250 mg/ Sodium Chloride 250 ml @ 0 mls/hr PROTOCOL IV 12/31/24 16:30 01/07/25 19:30 DC 01/07/25 16:32 4.17 MLS/HR Aspirin (Aspirin 81mg Ec Tab) 81 mg DAILY PO 12/24/24 09:00 01/23/25 08:59 01/15/25 11:27 81 MG Atorvastatin Calcium (LIPItor 40MG) 40 mg HS PO 12/24/24 21:00 01/01/25 11:16 DC 12/31/24 20:44 40 MG Atorvastatin Calcium (LIPItor 40MG) 40 mg HS PO 01/07/25 21:00 02/06/25 20:59 01/14/25 21:28 40 MG Benzocaine (Cepacol Sore Throat Lozenge) 1 each Q4H PRN MM SORE THROAT 01/03/25 13:30 02/02/25 13:29 01/06/25 11:16 1 EACH Bisacodyl (DulcoLAX) 10 mg DAILY PRN RC CONSTIPATION - MOM INEFFECTIVE 12/29/24 14:00 01/28/25 13:59 12/30/24 11:05 10 MG Calcium Gluconate 1 gm/Sodium Chloride 60 ml @ 200 mls/hr AD PRN IV HYPOCALCEMIA 12/28/24 14:00 01/27/25 13:59 01/01/25 01:52 200 MLS/HR Cefazolin Sodium (ANCEF 1 gm vial) 2 gm ONCALL IVP 12/26/24 16:30 12/26/24 16:28 DC Cefazolin Sodium (Ancef) 2 gm ONCALL PRN IVP SURGERY 12/26/24 16:30 12/28/24 13:57 DC Cefazolin Sodium (Ancef) 2 gm Q8H IVPB 12/28/24 19:00 12/29/24 11:01 DC 12/29/24 11:04 2 GM Ceftriaxone Sodium (Rocephin 2gm Inj) 2 gm Q24H IVPB 01/14/25 13:30 01/24/25 13:29 01/15/25 13:45 2 GM Clopidogrel Bisulfate (plaVIX 75MG) 75 mg DAILY PO 01/08/25 09:00 02/07/25 08:59 01/15/25 11:27 75 MG Dexamethasone (DeCADron 4 mg TAB) 4 mg DAILY PO 01/13/25 09:00 01/12/25 17:40 DC Dexamethasone (DeCADron 4 mg TAB) 6 mg DAILY PO 01/09/25 09:00 01/09/25 08:06 DC Dexamethasone (DeCADron 4 mg TAB) 10 mg BID PO 01/09/25 09:00 01/12/25 13:07 DC 01/12/25 09:24 10 MG Dexamethasone (DeCADron 4 mg TAB) 10 mg DAILY PO 01/13/25 09:00 01/15/25 08:59 DC 01/14/25 08:32 10 MG Dexmedetomidine/ Sodium Chloride (PRECEdex 400MCG/ 100ML-NS) 400 mcg PROTOCOL IV 12/28/24 14:00 12/29/24 13:59 DC 12/29/24 12:16 400 MCG Dexmedetomidine/ Sodium Chloride (PRECEdex 400MCG/ 100ML-NS) 400 mcg PROTOCOL IV 12/29/24 18:00 01/28/25 17:59 12/31/24 06:05 400 MCG Dextrose (D50w) 50 ml AD PRN IV HYPOGLYCEMIA PROTOCOL 12/28/24 14:00 01/27/25 13:59 Dextrose (D50w) 50 ml ONCE STAT IV 12/30/24 11:36 12/30/24 11:39 DC 12/30/24 11:45 50 ML Dextrose/Sodium Chloride 1,000 ml @ 50 mls/hr Q20H IV 12/30/24 11:30 01/01/25 16:17 DC 01/01/25 02:09 50 MLS/HR Dobutamine HCl/ Dextrose 250 ml @ 0 mls/hr PROTOCOL IV 12/29/24 14:00 01/08/25 15:43 DC 01/05/25 08:48 4.1 MLS/HR Docusate Sodium (COLace 100MG CAP) 100 mg BID PO 12/28/24 21:00 12/29/24 08:01 DC 12/28/24 20:53 100 MG Docusate Sodium (COLace LIQUID 100MG/10ML) 100 mg BID PO 12/29/24 08:00 01/28/25 07:59 01/15/25 11:26 100 MG Enoxaparin Sodium (Lovenox) 30 mg DAILY SQ 12/31/24 09:00 12/31/24 16:12 DC Enoxaparin Sodium (Lovenox) 30 mg DAILY SQ 01/08/25 09:00 01/07/25 20:03 DC Epinephrine HCl 10 mg/Sodium Chloride 250 ml @ 0 mls/hr AD PRN IV TITRATE 12/27/24 11:00 01/26/25 10:59 12/30/24 04:29 0 MLS/HR Epinephrine HCl 10 mg/Sodium Chloride 250 ml @ 0 mls/hr AD PRN IV POST-OP CARDIOVASCULAR ORDERS 12/28/24 14:00 12/28/24 14:14 DC Famotidine (Pepcid 20mg Vial) 20 mg BID IV 12/28/24 21:00 12/31/24 20:20 DC 12/31/24 08:51 20 MG Famotidine (Pepcid 20mg Vial) 20 mg Q48H IV 01/02/25 09:00 01/02/25 04:51 DC Famotidine (Pepcid 20mg Tab) 20 mg DAILY PO 12/24/24 09:00 12/28/24 13:54 DC 12/26/24 10:19 20 MG Furosemide (LASix 20MG TAB) 20 mg Q12H PO 12/30/24 09:00 12/30/24 08:34 DC Furosemide (LASix 20MG VIAL) 20 mg Q12H IV 12/29/24 09:00 12/30/24 08:34 DC 12/29/24 09:20 20 MG Furosemide (LASix 40MG TAB) 40 mg BID@09,17 PO 01/10/25 17:00 02/09/25 16:59 01/15/25 11:26 40 MG Furosemide (LASix 40MG VIAL) 40 mg Q12H IV 01/08/25 20:00 01/10/25 09:57 DC 01/09/25 21:05 40 MG Furosemide 100 mg/ Sodium Chloride 100 ml @ 0 mls/hr PROTOCOL IV 12/29/24 14:30 01/08/25 13:45 DC 01/07/25 08:41 0 MLS/HR Glucagon (Glucagon 1mg Kit) 1 mg AD PRN IM HYPOGLYCEMIA PROTOCOL 12/28/24 14:00 01/27/25 13:59 Guaifenesin (MUCinex 600 MG TABLET.ER) 600 mg BID PRN PO COUGH 01/08/25 09:30 02/07/25 09:29 Guaifenesin/ Dextromethorphan (RobiTUSSin DM 200/20MG 10ML) 10 ml Q4H PRN PO COUGH 01/03/25 16:30 01/08/25 09:29 DC 01/07/25 08:25 10 ML Heparin Sodium (Porcine) (HEParin 5,000 UNIT VIAL) *calculation based on ACTUAL B... AD PRN IV HEPARIN PROTOCOL 12/24/24 02:30 12/28/24 13:54 DC 12/24/24 17:32 5,000 UNIT Heparin Sodium (Porcine) (HEParin 5,000 UNIT VIAL) 5,000 unit BID SQ 01/08/25 09:00 01/13/25 07:22 DC 01/12/25 21:40 5,000 UNIT Heparin Sodium/ Dextrose 250 ml @ 0 mls/hr Q6H IV 12/24/24 02:30 12/28/24 13:54 DC 12/27/24 17:04 11.3 MLS/HR Hydralazine HCl (APRESOLine 20MG INJ) 10 mg Q6H PRN IV For:SBP above 160;DBP above 90 12/24/24 03:00 12/28/24 13:54 DC Insulin Human Regular (humuLIN R 100 UNIT/ML 3ML) 10 unit ONCE STAT IV 12/30/24 11:42 12/30/24 11:45 DC 12/30/24 12:01 10 UNIT Insulin Human Regular (humuLIN R 100 UNIT/ML 3ML) 10 unit ONCE STAT SQ 12/30/24 11:36 12/30/24 11:43 DC Insulin Human Regular 100 unit/ Sodium Chloride 100 ml @ 0 mls/hr AD IV 12/28/24 14:00 12/29/24 17:55 DC 12/28/24 17:09 5 MLS/HR Ipratropium [place] (AtrovENT UD) 0.5 mg [id number] IH 12/30/24 12:00 01/29/25 11:59 01/15/25 11:29 0.5 MG Lactulose (Constulose 20gm/ 30ml Udcup) 20 gm BID PRN PO CONSTIPATION 12/24/24 03:00 12/28/24 13:54 DC 12/26/24 21:30 20 GM Lactulose (Constulose 20gm/ 30ml Udcup) 20 gm BID PRN PO CONSTIPATION 12/28/24 14:00 01/27/25 13:59 12/30/24 07:50 20 GM Lidocaine HCl/ Dextrose 250 ml @ 0 mls/hr AD PRN IV TITRATE 12/28/24 22:30 12/29/24 16:00 DC 12/29/24 06:53 15 MLS/HR Magnesium Hydroxide (Milk Of Magnesium 30ml) 30 ml DAILY PRN PO CONSTIPATION 12/28/24 14:00 01/27/25 13:59 12/30/24 10:18 30 ML Magnesium Sulfate 50 ml @ 12.5 mls/hr AD PRN IV MAG LEVEL LESS THAN 2.0 12/28/24 14:00 01/12/25 07:16 DC 12/28/24 18:42 12.5 MLS/HR Magnesium Sulfate 50 ml @ 0 mls/hr PROTOCOL PRN IV MAGNESIUM PROTOCOL 12/26/24 15:00 12/28/24 14:10 DC Magnesium Sulfate 50 ml @ 0 mls/hr PROTOCOL PRN IV MAGNESIUM PROTOCOL 01/12/25 07:30 02/11/25 07:29 Metolazone (zarOXOlyn) 5 mg ONCE PO 12/31/24 12:00 12/31/24 20:18 DC 12/31/24 12:01 5 MG Metolazone (zarOXOlyn) 5 mg ONCE PO 01/01/25 16:30 01/02/25 16:29 DC 01/01/25 16:53 5 MG Metoprolol Tartrate (loprESSOR) 12.5 mg BID PO 12/30/24 09:00 01/04/25 08:51 DC 01/03/25 20:09 12.5 MG Metoprolol Tartrate (loprESSOR) 25 mg BID PO 12/25/24 21:00 12/28/24 13:54 DC 12/28/24 09:28 25 MG Metoprolol Tartrate (loprESSOR) 25 mg TID PO 01/04/25 09:00 01/06/25 13:08 DC 01/06/25 09:27 25 MG Metoprolol Tartrate (loprESSOR) 50 mg BID PO 01/06/25 21:00 02/05/25 20:59 01/15/25 11:27 50 MG Morphine Sulfate (morPHINE 2MG SYG) 0.5 mg Q2H PRN IV MODERATE PAIN (4-6) 12/28/24 14:00 12/29/24 13:59 DC Morphine Sulfate (morPHINE 2MG SYG) 1 mg Q2H PRN IV SEVERE PAIN (7-10) 12/28/24 14:00 12/29/24 13:59 DC 12/28/24 17:05 1 MG Morphine Sulfate (morPHINE 2MG SYG) 2 mg Q4H PRN IVP SEVERE PAIN (7-10) 12/24/24 03:00 12/28/24 13:54 DC 12/26/24 02:43 2 MG Nitroglycerin (Nitroglycerin 1gm Oint) 0.5 inch Q8H5 TD 12/24/24 01:30 12/28/24 13:54 DC 12/27/24 12:57 0.5 INCH Nitroglycerin (Nitroglycerin 1gm Oint) 1 inch Q8H TD 01/04/25 15:00 02/03/25 14:59 01/15/25 06:22 1 INCH Nitroglycerin/ Dextrose 0 ml @ 0 mls/hr AD IV 12/28/24 14:00 12/31/24 14:00 DC Nitroglycerin/ Dextrose 0 ml @ 0 mls/hr AD PRN IV TITRATE 01/01/25 06:30 01/31/25 06:29 01/07/25 01:12 0 MLS/HR Norepinephrine Bitartrate 250 ml @ 0 mls/hr AD PRN IV TITRATE 12/27/24 11:00 01/26/25 10:59 01/04/25 06:14 0 MLS/HR Norepinephrine Bitartrate 8 mg/ Dextrose 250 ml @ 0 mls/hr AD PRN IV POST-OP CARDIOVASCULAR ORDERS 12/28/24 14:00 12/28/24 14:14 DC Nystatin (NYSTatin 883015 UNIT/ML 5ML UDCUP) 10 ml TID PO 01/07/25 21:00 02/06/25 20:59 01/15/25 13:45 10 ML Nystatin (NystOP 15 GM POWDER) APPLY TO PERINEAL AREA... BID TP 01/08/25 21:00 02/07/25 20:59 01/15/25 11:28 1 APPL Ondansetron HCl (zoFRAN 4MG INJ) 4 mg Q6H PRN IV NAUSEA/VOMITING 12/24/24 03:00 12/28/24 13:54 DC Ondansetron HCl (zoFRAN 4MG INJ) 4 mg Q6H PRN IV NAUSEA/VOMITING 12/28/24 14:00 01/27/25 13:59 12/30/24 11:01 4 MG Pantoprazole Sodium (PROTonix 40MG INJ) 40 mg BID IVP 01/05/25 09:00 02/04/25 08:59 01/15/25 11:26 40 MG Pantoprazole Sodium (PROTonix 40MG INJ) 40 mg Q12H IVP 01/02/25 05:00 01/05/25 04:04 DC 01/04/25 16:00 40 MG Phenol (Sore Throat [place]) 1 SPRAY Q4H PRN PO SORE THROAT 01/06/25 10:30 01/09/25 08:15 DC 01/06/25 16:37 1 SPRY Piperacillin Sod/ Tazobactam Sod (Zosyn 3.375gm+NS 50ml) 3.375 gm Q12H IV 12/30/24 15:30 01/05/25 04:05 DC 01/04/25 14:38 3.375 GM Piperacillin Sod/ Tazobactam Sod (Zosyn 3.375gm+NS 50ml) 3.375 gm Q12H IV 01/05/25 09:00 01/09/25 08:59 DC 01/08/25 20:35 3.375 GM Potassium Phosphate 250 ml @ 42 mls/hr AD PRN IV LOW PHOS LEVEL 12/28/24 14:00 01/27/25 13:59 12/29/24 06:12 42 MLS/HR Potassium Chloride 100 ml @ 100 mls/hr AD PRN IV POTASSIUM PROTOCOL 12/26/24 15:00 12/28/24 13:54 DC Potassium Chloride 100 ml @ 100 mls/hr AD PRN IV HYPOKALEMIA 12/28/24 14:00 01/12/25 07:19 DC 01/06/25 20:02 100 MLS/HR Potassium Chloride 100 ml @ 100 mls/hr AD PRN IV POTASSIUM PROTOCOL 01/08/25 08:30 02/07/25 08:29 Potassium Chloride 100 ml @ 100 mls/hr AD PRN IV POTASSIUM PROTOCOL 01/12/25 07:30 02/11/25 07:29 Potassium Chloride (K-Dur/Klor-Con 20meq) 20 meq AD PRN PO POTASSIUM PROTOCOL 12/26/24 15:00 12/28/24 13:54 DC 12/26/24 18:27 20 MEQ Potassium Chloride (K-Dur/Klor-Con 20meq) 20 meq AD PRN PO POTASSIUM PROTOCOL 01/12/25 07:30 02/11/25 07:29 Potassium Chloride (KCl 10% Elixir 20meq/15ml) 20 meq AD PRN PO POTASSIUM PROTOCOL 12/26/24 15:00 12/28/24 13:54 DC Potassium Chloride (KCl 10% Elixir 20meq/15ml) 20 meq AD PRN PO POTASSIUM PROTOCOL 01/12/25 07:30 02/11/25 07:29 01/13/25 06:24 20 MEQ Propofol 100 ml @ 0 mls/hr AD PRN IV SEDATION 12/28/24 14:00 01/01/25 13:59 DC Sodium Polystyrene Sulfonate (kayEXALate 15 GM/60 ML) 30 gm ONCE STAT PO 12/30/24 11:36 12/30/24 11:39 DC 12/30/24 11:45 30 GM Sodium Bicarbonate (Sodium Bicarb 50meq 50ml Vial) 50 meq AD PRN IV OTHER[SEE DOSING INSTRUCTIONS] 12/28/24 14:00 12/31/24 14:00 DC 12/30/24 12:45 100 MEQ Sodium Chloride 500 ml @ 0 mls/hr AD IV 12/28/24 14:00 01/27/25 13:59 Sodium Chloride 1,000 ml @ 10 mls/hr ONCE IV 12/28/24 14:00 12/29/24 13:59 DC 12/28/24 17:06 10 MLS/HR Sodium Chloride (NS Flush 10ml) 10 ml Q8H PRN IVP IV LINE FLUSH 12/28/24 14:00 01/27/25 13:59 Sodium Chloride (Sodium Chloride 3% Inh) 4 ML [id number] IH 01/04/25 12:00 02/03/25 11:59 01/15/25 11:29 4 ML Tramadol HCl (UltRAM) 25 mg Q6H PRN PO MODERATE PAIN (4-6) 12/28/24 14:00 12/29/24 13:56 DC 12/29/24 11:05 25 MG Tramadol HCl (UltRAM) 50 mg Q6H PRN PO SEVERE PAIN (7-10) 12/28/24 14:00 12/29/24 13:56 DC Vasopressin 20 units/Sodium Chloride 100 ml @ 0 mls/hr PROTOCOL IV 12/30/24 15:30 01/29/25 15:29 12/31/24 10:40 6 MLS/HR Wound Care/ Dressing Products (Venelex Ointment) apply to buttocks and scrotum BID TP 01/11/25 21:00 02/10/25 20:59 01/15/25 11:28 1 GM DIAGNOSTICS / RADIOLOGY: [ ] ASSESSMENT: Multi-vessel coronary artery disease status post CABG 12/28/2024 Non-STEMI. 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 Hypertension. Anemia. ERICK possibly due to ATN New onset atrial fibrillation, not POA PLAN: ACS NSTEMI due to Multi vessel CAD, s/p CABG 12/28/2024 * Continue aspirin, atorvastatin * Continue p.o. clopidogrel as per Cardiology * Encouraged to use IS and to clear the secretions and use p.r.n. benzocaine spray for throat irritation Leukocytosis, suspected due to dexamethasone * WBC count increased from 11.5 -13.3 * Ordered influenza and COVID-19 testing, tested negative * Repeat blood cultures are negative * Speech evaluation concluded he has no aspiration and is currently on a heart healthy diet * We will follow up with the labs and continue to monitor Lactic acidosis, suspected type B due to regional hypoperfusion to left foot * Lactic acid today was elevated at 4 * Patient white count is 13.3 and is hemodynamically stable * Urinalysis is negative for UTI * Blood cultures sent on 01/12 and 01/14 showed no growth so far * We discontinued his PICC line * Continue IV Rocephin 2g Q 24 * Will continue to monitor Erythematous scraped lesion on the base of scrotum on the right side * Mild erythematous lesion found on the base of scrotum on right side * Continue nystatin powder p.r.n. and petroleum gel * Patient denies pain and there is no tenderness to palpation * Ordered scrotal support Hyperglycemia, resolved * Patient's blood glucose is 112 * Patient is not diabetic and his Hba1c on admission was 5.8 * Tapered dexamethasone completely * Advised tos stop drinking ensure drinks containing added sugars and switch it to glucern HFrEF LV ejection fraction 25-30% by echo on 01/01/2025 * Patient LVEF is 25-30% by echocardiography, down from 50-55% on 12/27/24 * Lasix drip is weaned off and patient is started on Lasix 40 mg PO Q12H by Nephrology * Resume GDMT for heart failure when deemed appropriate by Cardiology consult * Strict I&O and daily weights 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 Still complains of pulsatile burning pain on the medial aspect of left foot * Patient underwent left lower extremity femoral thrombectomy on 01/01, after finding monophasic waveforms be on popliteal artery by arterial Doppler * Continue atorvastatin and aspirin * Continue nitroglycerin paste and regular dressing changes by air carrier maintenance inspector * Patient can ambulate with the use of a CAM walking boot with physical therapy with a walker as per air carrier maintenance inspector * Monitor leg perfusion, pulses, swelling, and discoloration Anemia, post CABG * Patient received 4 units of packed RBCs * Iron panel showed Iron 20, % Sat 5.5, TIBC 360 indicating Iron deficiency, received 2 doses of IV Venofer * Patient hemoglobin is stable at 12.2 * Monitor CBC daily in the a.m. daily * Monitor for signs of bleeding Acute on chronic renal dysfunction * Patient has good urine output * Creatinine Improved from 5.2-4.4 * Monitor CBC and electrolytes in the a.m. daily * Avoid nephrotoxic agents New onset atrial fibrillation, not POA * Amiodarone 200 mg p.o. as per Cardiology recommendation * Continue Eliquis 2.5 mg BID * Currently in sinus rhythm GI prophylaxis with Protonix 40 mg IV Continue DVT prophylaxis with heparin 5000 SQ b.i.d. ATTESTATION BY PHYSICIAN I have seen and examined the patient. I reviewed the documentation, medical decision making, and treatment plan as noted by the resident above. I agree with the findings and plan of care. Arnulfo Rios MD, PRIYANKA MD Jan 15, 2025 14:01
--- NOTE | 2025-01-15 15:20 | NUR ---
NURSING NOTE Patient found back in bed. Patient states did not tolerate being up in chair; states wanted left leg elevated. Patient educated on importance of activity, however, patient stated his leg was down and needed to be elevated. Reminded patient that recliner is able to provide leg elevation. Patient stated he simply wanted back in bed.
--- NOTE | 2025-01-15 15:26 | PN ---
FOLLOWUP PROGRESS NOTE SUBJECTIVE: A 54-year-old male with a history of diabetes mellitus and hypertension. He has had a prolonged hospital course. The patient initially admitted to the hospital status post coronary artery bypass graft surgery. He has had acute renal failure in the hospital. Creatinine continues to improve and he is being seen for all of the above. REVIEW OF SYSTEMS: CONSTITUTIONAL: He is feeling much improved. HEENT: No change in vision. No change in hearing. CARDIOVASCULAR: There is no current chest pain or palpitations. PULMONARY: No shortness of breath. GASTROINTESTINAL: The patient is tolerating a diet. MUSCULOSKELETAL: Complaints of weakness. PHYSICAL EXAMINATION: VITAL SIGNS: Blood pressure 135/95, pulse in the 70s, afebrile. GENERAL: Chronically ill male, much older than appearing. HEENT: Head is atraumatic. Pupils equal, round, and reactive to light. Oropharynx is without exudate. Nares clear. NECK: There is no JVP. There is no thyromegaly. CARDIOVASCULAR: Regular. There is no S3 or S4 gallop. LUNGS: Coarse with equal thoracic movement. ABDOMEN: Soft, nondistended and nontender. EXTREMITIES: There is no clubbing, no cyanosis. NEUROLOGIC: He is awake. He is alert. LABORATORY DATA: Hemoglobin 12, hematocrit 37. BUN 116, creatinine 4.4, sodium is 134. IMPRESSION: * Acute renal failure. * Coronary artery disease, status post CABG. * Diabetes mellitus. * Hypertension. PLAN: The patient's creatinine continues to slowly improve. The patient's electrolytes have all been aggressively repleted. The patient is being seen by Case Management in regards to final disposition. He is encouraged with the therapy. We will follow closely. TID: [id number] RECEIPT: [id number]
--- NOTE | 2025-01-15 20:35 | PN ---
SUBJECTIVE: The patient's postop day #18 from coronary artery bypass grafting. His postop course has been complicated by slow rehabilitation mostly due to ischemia on his left foot. OBJECTIVE: VITAL SIGNS: The patient's vital signs reveal a temperature of 97.8, blood pressure is 135/95, pulse 75, respirations 16, oxygen saturation 99%. HEENT: Normocephalic, atraumatic. Extraocular movements intact. CHEST: Sternal wound is healing well. Chest tubes have been long removed. HEART: S1 and S2 and regular. LUNGS: He is on room air. ABDOMEN: His abdomen is soft and nontender. EXTREMITIES: He has a Kerlix wrap on his left foot, which has dry gangrene on some of his toes. ASSESSMENT AND PLAN: * Status post coronary artery bypass grafting postop day #18. Continue aspirin, Plavix, amiodarone, Lasix, and metoprolol. * Hypercholesterolemia. Lipitor 40 mg p.o. at bedtime with low cholesterol, cardiac diet. * Left lower extremity peripheral vascular disease. Continue wound care to left foot. Continue ambulation and cardiac rehab. TID: [id number] RECEIPT: [id number]
[2025-01-16] VITALS (13 sets, daily range): BP systolic 124–148; BP diastolic 80–100; PULSE 74–85; RESP 18–20; TEMP 98–98.8; O2SAT 97–100
[2025-01-16 04:06] LABS: IMMATURE GRANULOCYTE ABSOLUTE 0.20 K/uL (0-1); NUCLEATED RED BLOOD CELLS 0.2 % (0.0-0.19); PLATELET COUNT (AUTO) 660 K/uL (130-400); RED BLOOD CELL COUNT(AUTO) 4.65 MIL/uL (4.50-6.20); RED CELL DISTRIBUTION WIDTH 25.5 % (11.0-15.5); WHITE BLOOD COUNT (AUTO) 11.8 K/uL (4.8-10.8)
[2025-01-16 06:00] LABS: CREATININE 4.1 mg/dL (0.5-1.3); GLOMERULAR FILTR. RATE CALC 16.0 mL/min (>90); GLUCOSE,RANDOM 115.0 mg/dL (70-105); SODIUM SERUM 133.0 mmol/L (136-145)
[2025-01-16 06:07] LABS: UREA NITROGEN, BLOOD 106.0 mg/dL (7-18)
--- NOTE | 2025-01-16 10:22 | PN ---
[facility] CARDIOLOGY PROGRESS NOTE Date Patient Seen: Jan 16, 2025 Time of Visit: 10:17 Interval History: No acute events overnight. Renal function is stable , currently denies any cardiac symptoms or anginal equivalents. Pending rehab placement Physical Examination: GENERAL: [No acute distress.] NECK: R CVC LUNGS: [ diminished inspiratory effort. No wheezes, or rhonchi.] HEART: [Normal rate and rhythm. Normal S1 and S2 without murmurs, gallop or rub.] VASC: [Peripheral pulses +1 bilaterally. blistering to distal left foot with ecchymoses to distal digits] ABD: soft, nontender SKIN: [ecchymoses, blistering to LLE distal digits. sensation and motor function intact NEURO: [Awake, alert , moves all extremities.] Laboratory: [ ] Hematology Labs: Test 01/16/25 03:41 Range/Units White Blood Count 11.8 H 4.8-10.8 K/uL Red Blood Count 4.65 4.50-6.20 MIL/uL Hemoglobin 12.3 L 14.0-18.0 g/dL Hematocrit 38.4 L 42-54 % Mean Corpuscular Volume 82.6 79-99 fL Mean Corpuscular Hemoglobin 26.5 L 27.0-33.0 pg Mean Corpuscular Hemoglobin Concent 32.0 32.0-36.0 g/dL Red Cell Distribution Width 25.5 H 11.0-15.5 % Platelet Count 660 H 130-400 K/uL Mean Platelet Volume 12.0 H 7.5-10.5 fL Immature Granulocyte % (Auto) 1.7 H 0-1 % Neutrophils (%) (Auto) 75.5 40.0-77.0 % Lymphocytes (%) (Auto) 12.6 L 21.0-51.0 % Monocytes (%) (Auto) 9.3 3.0-13.0 % Eosinophils (%) (Auto) 0.7 0.0-8.0 % Basophils (%) (Auto) 0.2 0.0-5.0 % Neutrophils # (Auto) 8.9 H 1.8-7.7 K/uL Lymphocytes # (Auto) 1.5 1.0-4.8 K/uL Monocytes # (Auto) 1.1 H 0.1-1.0 K/uL Eosinophils # (Auto) 0.08 0.00-0.70 K/uL Basophils # (Auto) 0.02 0.00-0.20 K/uL Absolute Immature Granulocyte (auto 0.20 0-1 K/uL Nucleated Red Blood Cells 0.2 H 0.0-0.19 % Chemistry Labs: Test 01/16/25 07:33 01/16/25 03:41 01/15/25 16:07 01/14/25 11:25 Range/Units Lactic Acid Level 2.8 H 0.8-2.5 mmol/L Sodium Level 133 L 136-145 mmol/L Potassium Level 3.3 L 3.5-5.1 mmol/L Chloride Level 94 L 101-111 mmol/L Carbon Dioxide Level 25 21-32 mmol/L Blood Urea Nitrogen 106 *H 7-18 mg/dL Creatinine 4.1 H 0.5-1.3 mg/dL Glomerular Filtration Rate Calc 16 >90 mL/min Random Glucose 115 H 70-105 mg/dL Total Calcium 8.2 L 8.5-10.1 mg/dL Whole Blood Glucose 183 H 70-110 MG/DL C-Reactive Protein, Quantitative 20.40 H 0.5-3.0 mg/L Diagnostics / Radiology: [Copy/Paste Echos/Imaging Report here] Impression and Plan: ACS-NSTEMI MVCAD s/p CABG with VG-RCA, VG-OM, TORRES-LAD and VG-distal LAD LLE ALI while IABP in place, status post femoral thrombectomy, placed on argatroban. New onset atrial fibrillation with rapid ventricular response, converted. Hypertension ICMP LVEF 25-30% Acute renal failure without dialysis #ACS-NSTEMI on presentation Patient presented as a transfer for admission due to NSTEMI Presenting hemoglobin was 7.1 g, underwent EGD was negative for active bleeding or ulcers Coronary angiogram revealing multivessel CAD CV surgery was consulted for CABG s/p 4 v CABG and insertion of aortic balloon pump with VG-RCA, VG-OM, TORRES-LAD and VG-distal LAD Removal of IABP 12/31 Defer the use of nephrotoxic medications due to acute kidney injury Creatinine improving currently at 4.4 Continue [id number] mg daily, ASA 81 mg daily, Lopressor 50 mg every12 hours and atorvastatin 40 mg q.h.s. Rest of care by CV surgery #HFmrEF ICM-LVEF 25-30%- NYHA II Euvolemic and compensated on exam 2D echocardiogram (01/01/2025) LVEF 25-30%, hypokinetic anterior wall and apex. Strict I's and O's and daily weights. Overnight urine output 1850 mL, net-1510 mL Continue Lasix 40 mg po every 12 hours GDMT: Continue Lopressor 50 mg every12 hours Unable to optimize GDM T any further due to worsening renal function (nephrology is following) # paroxysmal atrial fibrillation Documented episode atrial fibrillation with RVR on 01/04/2025 Initially cardioverted with amiodarone bolus and infusion Current review of telemetry sinus rhythm with a heart rate of 82 beats per minute with no events overnight We will recommend Eliquis once deemed safe by CV surgery Continue Lopressor 50 mg every 12 hours, amiodarone 200 mg daily Keep on telemetry, monitor/replace electrolytes as needed ( Mg >2 , K > 4 ) #PAD Bilateral lower extremity arterial doppler dated 12/31/2024. Monophasic waveforms throughout the left lower extremity suggesting of inflow disease No flow seen in the left anterior tibial artery or dorsalis pedis arteries. No plans for any invasive procedures given his ERICK on CKD Thank you for this consult cardiology will continue to follow along Kane Xiao MD ATTESTATION BY PHYSICIAN I have seen and examined the patient, reviewed the above documentation, participated in medical decision making, made necessary modifications, and agree with the treatment plan as documented by my mid-level provider above. MD IRASEMA Alas JAMES R MD Jan 16, 2025 10:22
--- NOTE | 2025-01-16 10:36 | PN ---
FOLLOWUP PROGRESS NOTE A 54-year-old male who has had a prolonged hospital course. Patient with a history of coronary artery disease status post CABG. The patient has had acute renal failure postoperatively. Creatinine continues to slowly improve. Urine output has been noted with the diuretics and he is being seen as a followup visit for all the above. REVIEW OF SYSTEMS: GENERAL: He has been feeling improved. HEENT: No change in vision. No change in hearing. CARDIOVASCULAR: There are no current chest pains or palpitations. PULMONARY: No shortness of breath. GASTROINTESTINAL: He is started on a diet. MUSCULOSKELETAL: Complaints of weakness. PHYSICAL EXAMINATION: VITAL SIGNS: Blood pressure is 131/92, pulse 80, afebrile. GENERAL: He is a chronically old male, much older in appearance. HEENT: Head is atraumatic. Pupils are equal, round, and reactive to light. Oropharynx is without exudate. Nares clear. NECK: There is no JVP. There is no thyromegaly, no mass. CARDIOVASCULAR: Regular. There is no S3 or S4 gallop. LUNGS: Coarse with equal thoracic movement. ABDOMEN: Abdomen is soft, nondistended, nontender. EXTREMITIES: There is no edema. NEUROLOGICAL: He is awake. He is alert. LABORATORY DATA: Sodium 133, potassium 3.3, BUN 106, creatinine is 4, hemoglobin 12, hematocrit 38. IMPRESSION: Acute renal failure. Coronary artery disease status post coronary artery bypass graft. Diabetes mellitus. Hypertension. Debilitation. PLAN: The patient's renal function continues to slowly improve. The patient's urine output has been adequate with the diuretics. Electrolytes have all been aggressively repleted. The patient is being seen by Case Management in regards to final disposition, which will be home and we will continue to follow the patient closely. TID: [id number] RECEIPT: [id number]
--- NOTE | 2025-01-16 14:15 | NUR ---
CM Note Spoke to son Louis and informed him pt was denied inpatient rehab. Son agreed to pick him up tomorrow afternoon.
--- NOTE | 2025-01-16 15:15 | PN ---
[facility] PROGRESS NOTE Date of Service: Jan 16, 2025 Time of Service: 14:17 SUBJECTIVE: This is a 54-year-old male who presented to [facility] with a non-STEMI. He underwent left heart catheterization which showed severe multi-vessel coronary artery disease with mid to apical inferior hypokinesis, LVEF 45-50%. He underwent echocardiogram 12/19/2024 which showed an ejection fraction of 55- 60%, mild LVH, normal-sized left atrium, mild mitral valve regurgitation and mild tricuspid valve regurgitation. He was transferred to [facility] [place] [facility] for CABG. 12/25 patient remains admitted to the PCU, case discussed with the RN, no acute events overnight, he denied chest pain, shortness shortness for breath, no nausea, no vomiting, no abdominal discomfort. Cardiology input noted and appreciated, patient to continue aspirin 81 mg p.o. daily and atorvastatin 40 mg p.o. daily. Continue metoprolol tartrate 25 mg p.o. b.i.d.. Pending evaluation by CT surgery for consideration for CABG. Discussed with the patient. 12/26 patient remains admitted to the PCU, case discussed with the RN, no acute events overnight, the time of my visit the patient is comfortably in bed, alert oriented x3, eating breakfast, tolerating well, denies nausea, no vomiting, no abdominal discomfort, he denies chest pain, no shortness a breath. Remains on aspirin 81 mg p.o. daily, atorvastatin and metoprolol 25 mg p.o. b.i.d.. Pending evaluation by CT surgery for consideration of CABG. 12/27 patient is seen and examined at bedside, case discussed with the RN, no acute events overnight, currently the patient NPO, scheduled for CABG today by Cardiothoracic surgeon. We will continue to follow. 12/28 patient is seen and examined at bedside, case discussed with the RN, no acute events overnight, currently the patient NPO, scheduled for CABG today by Cardiothoracic surgeon. We will continue to follow. 12/29 patient is seen and examined at bedside, remains admitted to the ICU, postoperative day 1., status post CABG 12/28/2024, patient on insulin drip, nitroglycerin drip, alert oriented x3 following commands, however was mildly agitated earlier this morning, motion with the RN started on Precedex. Patient with chest tube in place. Further recommendations per Cardiothoracic surgeon. 12/30 patient remains admitted to the ICU, case discussed with the RN, patient remains confused, trying to pull his IV lines, remains on Precedex. Throughout the balloon pump in place, just to be breath, remains on epinephrine, Levophed, Lasix drip, dobutamine drip. Creatinine today at 3.0. Nephrology consultation requested, we will follow input and recommendation. Continue to monitor liver enzymes in a.m., follow ammonia level (at the time of my dictation less than 10). Continue to follow critical care input and recommendation. Prognosis remains guarded. 12/31 54-year-old male who was transferred from [facility] with a non- STEMI. He underwent left heart catheterization which showed severe multi-vessel coronary artery disease with mid to apical inferior hypokinesis, LVEF 45-50%. He underwent echocardiogram 12/19/2024 which showed an ejection fraction of 55- 60%, mild LVH, normal-sized left atrium, mild mitral valve regurgitation and m ild tricuspid valve regurgitation. He was transferred to [facility] [place] for CABG. Cardiothoracic surgeon consultation requested, patient underwent CABG 12/28/2024. Continue to follow Cardiothoracic input and recommendations. Patient has been mildly confused post procedure, started on Precedex. 01/01 54-year-old male who was transferred from [facility] with a non- STEMI. He underwent left heart catheterization which showed severe multi-vessel coronary artery disease with mid to apical inferior hypokinesis, LVEF 45-50%. He underwent echocardiogram 12/19/2024 which showed an ejection fraction of 55- 60%, mild LVH, normal-sized left atrium, mild mitral valve regurgitation and mild tricuspid valve regurgitation. He was transferred to [facility] [facility] for CABG. Cardiothoracic surgeon consultation requested, patient underwent CABG 12/28/2024. At the time of my visit resting comfortably in bed, off Precedex, following commands, status post interval removal of intra-aortic balloon pump yesterday, remains on dobutamine and nitroglycerin drip as well as argatroban. Continue to follow critical Care and Cardiothoracic input and recommendations. 01/02/25: Patient was evaluated at the bedside. Today is postop Day 5 and he is recovering well. Patient underwent thrombectomy in the femoral artery of left lower extremity and removal of intra-aortic balloon pump yesterday. Patient has mottled appearance in the left great toe and dorsalis pedis pulsations are present. His chest tube output was 320 mL over the last 24 hours. His stool was positive for occult blood and a GI consult has been placed. Cardiology advised to continue the current treatment. Patient is weaned off Levophed and is currently on Lasix, dobutamine, nitroglycerin, and argatroban drips. A swallow test will be performed today to evaluate the need for removing NG tube. 01/03/25: Patient was evaluated at the bedside, this is postop day 6 and is recovering well. Patient has mottled appearance in the left great toe extending into all the digits. Dorsalis pedis pulsations were diminished with palpation but detected on Doppler. His chest tube output was 310 mL today. A GI consult was placed for occult blood however no intervention was recommended and advised to continue Protonix 40 mg. Nephrology recommended no renal replacement as alicia ent has good urine output,3 L today and is responding well to diuresis. Patient is continued on Lasix, dobutamine, nitroglycerin, and argatroban drips. NG tube was removed and patient was started on pureed heart healthy diet as tolerated. 01/04/2025: Patient was evaluated at the bedside, this is postop day 7. Patient had an episode of AFib with rapid ventricular response this morning and was cardioverted with amiodarone and continued on drip. Patient's left leg discoloration has improved, but still has diminished pulses only detected by Doppler. His chest tube output is 140 mL. Patient's ERICK has been worsening with creatinine 7.8 today however he has adequate urine output, 3.5 L today. Cardiology recommended to reduce Lasix drip to 2.5 and nephrology advised that patient's creatinine is stabilizing and renal function will improve in the next few days. Patient is still continuing on argatroban, nitro, and dobutamine drips. Otherwise patient has been recovering well tolerating pureed food and only complains of occasional throat pain due to cough. He was encouraged to cough to clear the chest secretions and use p.r.n. benzocaine spray for relief. His chest x-ray shows clearing pleural effusion and pulmonary edema. 01/05/2025: Patient was evaluated at the bedside and this is postop day. Patient has been in sinus rhythm since the AFib episode this morning. IV amiodarone was stopped and transitioned to p.o. 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 Manager [employer]ruiting recommended applying nitroglycerin paste and and covered it in dressing. Patient's ERICK continues to worsen, creatinine 8.2 today. However he is maintaining a good urine output, 2500 today. He has been weaning of Lasix drip. Patient has been encouraged to use incentive spirometry and cough as tolerated to clear the chest secretions. Chest x-ray showed no evidence of pulmonary venous congestion today. 01/06/2025: Patient was evaluated at the bedside, he was sitting comfortably in his chair. Patient has been in sinus rhythm. Patient continues on argatroban, Lasix, and dobutamine drips. Patient's ERICK seemed to be stabilizing his creati nine is 8.3 compared to 8.2 yesterday. Patient is maintaining good urine output, 2L in the last 24 hours. Patient's left foot was covered in dressing. Dr. Persaud evaluated the patient today and recommended walking boot with dressing if he is cleared by Cardiology for ambulation. His demarcating necrosis of the distal aspects of digits 1, 2, 3, and 4 on the left side seemed to be improving. Dr. Persaud recommended to continue nitroglycerin paste. Patient encouraged to use incentive spirometry and cough and was asked to use benzocaine for relief from throat pain. 01/07/2025 - patient seen at bedside in room 215 , patient is alert awake and oriented. Patient continues to be on argatroban, Lasix drips, his acute kidney injury possibly secondary to ATN secondary to hypotensive episode seems resolving while maintaining good urine output. Patient still complains of cough, pain in the left lower extremity. Patient's phosphorus trended down to 6.8 And anion gap closed down to 12 today. Patient currently hemodynamically stable and we will continue to monitor closely. 01/08/2025 Patient is seen and examined at the bedside. Awake alert and oriented and sitting comfortably in the chair. Argatroban drip is discontinued and patient is started on Heparin for DVT prophylaxis and Plavix 75 mg [for NSTEMI] by cardiology. Vitals blood pressure ranging in 110/80s, pulse rate 80s, respiratory rate in 20s to 30s, SpO2 greater than 95% on room air. Patient had an episode of AFib today. Currently in sinus rhythm. Chest tube and arterial line are discontinued as per CT is recommendations. Urine output 1.8 L. He still complains of productive cough, poor appetite. Labs hemoglobin stable at 10.1, potassium low at 3.1, BUN 93, creatinine improved from 7.9-7.5. Chest x-ray revealed no evidence of airspace consolidation or pulmonary venous congestion. 01/09/25: Patient was seen and evaluated at the bedside. He was awake, alert, and oriented to time place and person. Patient had been in sinus rhythm and had no acute events overnight. His vitals have been stable and only complains of throat pain. His creatinine is improving, 7.4 from 7.5 yesterday. He is maintaining good urine output of 2 [place] [id number] today and is receiving Zosyn. His chest x-ray showed trace left pleural effusion. Still has productive cough and a poor appetite. Speech evaluation was placed for tomorrow for suspected aspiration. Testing for influenza and COVID-19 were placed. 01/10/25 patient was seen patient was sitting in chair receiving his neb treatment. Patient denied chest pain or shortness for breath. 01/11/25: Patient was seen and evaluated at the bedside in room 205. Patient was downgraded to medical floor and is recovering well from his surgery. Improving in his creatinine is at 6.6 from 6.9 yesterday. Is maintaining a good urine output of 1975 mL yesterday. His demarcating necrosis of the left foot is improving with gradually receding necrotic tissue. His bilateral pedal pulses are present with Doppler. We will have speech therapist evaluate with barium swallow for consideration of advancing diet from pureed food. 01/12/25: Patient was seen and evaluated at the bedside in room 205. Patient was sitting comfortably in the chair. Patient had no acute events overnight. Patient reports he is feeling much better and denies chest pain, shortness of breath, dizziness. Patient blood sugars were high today at 295. Patient was noted to be drinking ensure protein drinks containing added sugars with his breakfast. He has been also taking 7 doses of Decadron 4mg so far. Patient was advised not to drink the ensure drinks for now and we will taper the Decadron in 2 days. His lactic acid is elevated at 3.6 and has an anion gap metabolic acidosis. We will order a UA with microscopy and culture. Case management is working on the placement to a SNF and will follow their recommendations. 01/13/2025: Patient was evaluated at the bedside in room 205. Patient was lying comfortably in his bed with head end elevated. He had no acute events overnight. He is currently being tapered off dexamethasone. Patient denies chest pain, shortness of breath, dizziness and only has a mild sore throat. Blood glucose was controlled and 160s this morning. Patient was asked to drink ensure and instead we will be given glucerna. His demarcating necrosis of the left foot is improving and only has a couple of fluid-filled blisters on the toes. Patient's lactic acid today is a 3.7. Patient has normal white blood cell count, normal procalcitonin and has no fever. Blood and urine cultures results are still pending. Patient is pending rehab placement. 01/14/2025: Patient was evaluated at the bedside in room 205. Patient was sitting comfortably in his chair. Had no acute events overnight. Patient blood glucose is well controlled and today it is 182. His ERICK is improving from 5.2- 4.5 today and is maintaining a good urine output of 700 mL. Patient's lactic acid is elevated at 4, CRP 20 and he had up trending white cell count which is 11.5 today. Patient is afebrile and denies any chills, night sweats, pain at the IV site, nausea, vomiting, and diarrhea. Patient was started on Rocephin and discontinued his PICC line. A new blood culture was ordered today. Patient is still recovering from demarcating necrosis of the left foot after undergoing femoral thrombectomy and still complains of burning pulsatile pain in the left foot. We are considering his elevated lactic acid is due to regional hypoperfusion causing type B lactic acidosis however we will continue to evaluate for other sources of infection. In the evening patient also complained of a lesion on the bottom of his right side scrotum with a minor bleeding. Patient reports that he had increased itching sensation in the area and has been using nystatin powder. Patient is pending placement for rehab at [facility]. 01/15/25 Patient is seen and examined at the bedside. Vitals blood pressure ranging in 140/90s, pulse rate 80s, respiratory rate, SpO2 greater than 95% on room air. Urine output 1.5 L. No acute events last night. He complains of pulsating pain in the left limb. He is able to tolerate oral feeds without any nausea/vomiting. Labs WBC increased from 11.5-13.3, hemoglobin stable around 12.2, platelets 632, sodium 134, chloride 96, potassium low at 3.2, BUN 116, creatinine improved from 5.2- 4.4, blood glucose 112. Blood cultures are negative. Urinalysis negative for leukocyte esterase, nitrates. Pending rehab placement. 01/16/2025: Patient is seen and examined at bedside in room 205. Case discusse d with RN, no overnight events. Blood pressure 131/92, pulse 74, respiratory rate 18, saturating 100% on room air. Patient is afebrile and denies any shortness of breath, chest pain, palpitations except for occasional cough with sputum. His lab shows sodium 133, potassium 3.3, chloride 94, BUN 106, creatinine 4.1, lactic acid 2.8, urine output 550 mL. Patient is recovering from demarcating necrosis of the left foot after undergoing femoral thrombectomy and he was able to walk around in the room. We will follow-up closely with Cardiothoracic surgeon regarding clearance for placement to SNF. Patient is cleared by Podiatry and Nephrology for placement to SNF, case management is on board. REVIEW OF SYSTEMS CONSTITUTIONAL: Denies fevers, chills, or night sweats. No unintentional weight loss reported., Throat irritation NEUROLOGICAL: Denies headache, amaurosis fugax, motor weakness, sensory deficit, vertigo/spinning sensation, gait abnormalities, or tremors. CARDIOVASCULAR: Denies any exertional angina, dyspnea on exertion, orthopnea, paroxysmal nocturnal dyspnea, palpitations, life-threatening arrhythmias, claudication. PULMONARY: Denies any shortness of breath, hemoptysis, pleuritic chest pain. Patient has cough with clear sputum, improving GASTROINTESTINAL: Denies any type of dysphagia to either liquids or solids. Denies nausea, vomiting, pyrosis, early satiety, abdominal pain, diarrhea, constipation, or changes in stool consistency or caliber. GENITOURINARY: Denies frequency, urgency, nocturia, hematuria or incontinence. Andres removed. Complains of itching on the inner thighs and under scrotum. PHYSICAL EXAM GENERAL APPEARANCE: Patient is alert, oriented, and comfortable lying down and sitting. NECK: Supple. No JVD. CHEST: Normal chest expansion. LUNGS: Absence of any rales, rhonchi or any wheezing. Chest tube in place. CARDIOVASCULAR: Regular. S1 and S2 normal. No appreciable rubs, murmurs or gallops. ABDOMEN: Soft, nontender, and nondistended. There is no rebound, voluntary guarding, or rigidity. : Deferred. No Andres. Mild erythematous lesion present under the scrotum on right side EXTREMITIES: LLE pulses present per Doppler, left toes and foot covered in dressing. Vital Signs (last 8hr) Date Time Temp Pulse Resp B/P (MAP) Pulse Ox O2 Delivery O2 Flow Rate FiO2 01/16/25 13:57 100 Room Air* 0 21 01/16/25 11:38 74 18 N/A Room Air 01/16/25 11:34 74 18 01/16/25 11:00 98.8 84 20 135/95 100 Room Air 01/16/25 07:29 74 18 N/A Room Air 01/16/25 07:26 74 18 01/16/25 07:00 98.2 85 18 131/92 99 Room Air LABS: Laboratory: Test 01/16/25 07:33 01/16/25 03:41 01/15/25 16:07 Range/Units Lactic Acid Level 2.8 H 0.8-2.5 mmol/L White Blood Count 11.8 H 4.8-10.8 K/uL Red Blood Count 4.65 4.50-6.20 MIL/uL Hemoglobin 12.3 L 14.0-18.0 g/dL Hematocrit 38.4 L 42-54 % Mean Corpuscular Volume 82.6 79-99 fL Mean Corpuscular Hemoglobin 26.5 L 27.0-33.0 pg Mean Corpuscular Hemoglobin Concent 32.0 32.0-36.0 g/dL Red Cell Distribution Width 25.5 H 11.0-15.5 % Platelet Count 660 H 130-400 K/uL Mean Platelet Volume 12.0 H 7.5-10.5 fL Immature Granulocyte % (Auto) 1.7 H 0-1 % Neutrophils (%) (Auto) 75.5 40.0-77.0 % Lymphocytes (%) (Auto) 12.6 L 21.0-51.0 % Monocytes (%) (Auto) 9.3 3.0-13.0 % Eosinophils (%) (Auto) 0.7 0.0-8.0 % Basophils (%) (Auto) 0.2 0.0-5.0 % Neutrophils # (Auto) 8.9 H 1.8-7.7 K/uL Lymphocytes # (Auto) 1.5 1.0-4.8 K/uL Monocytes # (Auto) 1.1 H 0.1-1.0 K/uL Eosinophils # (Auto) 0.08 0.00-0.70 K/uL Basophils # (Auto) 0.02 0.00-0.20 K/uL Absolute Immature Granulocyte (auto 0.20 0-1 K/uL Nucleated Red Blood Cells 0.2 H 0.0-0.19 % Sodium Level 133 L 136-145 mmol/L Potassium Level 3.3 L 3.5-5.1 mmol/L Chloride Level 94 L 101-111 mmol/L Carbon Dioxide Level 25 21-32 mmol/L Blood Urea Nitrogen 106 *H 7-18 mg/dL Creatinine 4.1 H 0.5-1.3 mg/dL Glomerular Filtration Rate Calc 16 >90 mL/min Random Glucose 115 H 70-105 mg/dL Total Calcium 8.2 L 8.5-10.1 mg/dL Whole Blood Glucose 183 H 70-110 MG/DL Current Medications Medications (Trade) Dose Ordered Sig/Mila Route PRN Reason Start Time Stop Time Status Last Admin Dose Admin Acetaminophen (TYLenol 325MG TAB) 650 mg Q4H PRN PO Temp >38.3C(AFTER EXTUBATION) 12/28/24 14:00 01/27/25 13:59 Acetaminophen (TYLenol 325MG TAB) 650 mg Q6H PRN PO MILD PAIN (1-3) 12/24/24 01:30 12/28/24 13:57 DC 12/27/24 23:45 650 MG Acetaminophen (TYLenol 325MG TAB) 650 mg Q6H PRN PO TEMPERATURE GREATER THAN 101.5 12/24/24 03:00 12/28/24 14:10 DC Acetaminophen (TYLenol 325MG TAB) 650 mg Q6H PRN PO MILD PAIN (1-3) 12/28/24 14:00 01/27/25 13:59 01/05/25 20:03 650 MG Acetaminophen (TYLenol 650MG SUPPOSITORY) 650 mg Q4H PRN RC Temp >38.3C WHILE INTUBATED 12/28/24 14:00 01/07/25 19:35 DC Acetaminophen (acetaMINOPHEN) 1,000 mg Q6H6 IV 12/28/24 18:00 12/29/24 17:59 DC 12/29/24 17:27 1,000 MG Acetaminophen (acetaMINOPHEN) 1,000 mg Q6H6 IVPB 12/30/24 00:00 12/31/24 20:14 DC 12/30/24 18:16 1,000 MG Albumin Human 250 ml @ 0 mls/hr AD PRN IV IF HEMODYNAMICALLY UNSTABLE 12/28/24 14:00 12/29/24 09:28 DC 12/29/24 09:28 250 MLS/HR Albuterol (DUOneb) 1 UDVIAL [id number] IH 01/01/25 18:00 01/01/25 15:25 DC Albuterol Sulfate (Proventil 0.083% 2.5mg/3ml) 2.5 mg ONCE STAT IH 12/30/24 10:22 12/30/24 10:32 DC 12/30/24 10:43 2.5 MG Aminocaproic Acid 34386 mg/Sodium Chloride 310 ml @ 25 mls/hr AD IV 12/28/24 14:00 12/28/24 14:14 DC Aminocaproic Acid 93659 mg/Sodium Chloride 480 ml @ 0 mls/hr AD PRN IV BLEEDING CONTROL 12/27/24 11:00 01/07/25 19:35 DC Amiodarone HCl (pacERONE 200MG) 200 mg DAILY PO 01/05/25 09:00 02/04/25 08:59 01/16/25 09:59 200 MG Amiodarone HCl 150 mg/Dextrose 103 ml @ 618 mls/hr ONCE IV 01/04/25 06:30 01/04/25 06:21 DC Amiodarone HCl 360 mg/Dextrose 207.2 ml @ 33.3 mls/hr AD IV 01/04/25 06:30 01/04/25 06:21 DC Amiodarone HCl 540 mg/Dextrose 310.8 ml @ 16.7 mls/hr [id number] IV 01/04/25 06:30 01/09/25 09:26 DC 01/04/25 13:01 16.7 MLS/HR Apixaban (EliquIS 2.5 mg) 2.5 mg BID PO 01/13/25 09:00 02/12/25 08:59 01/16/25 10:00 2.5 MG Apixaban (EliquIS) 5 mg HS PO 01/07/25 21:00 01/07/25 19:35 DC Argatroban 250 mg/ Sodium Chloride 250 ml @ 0 mls/hr PROTOCOL IV 12/31/24 16:30 01/07/25 19:30 DC 01/07/25 16:32 4.17 MLS/HR Aspirin (Aspirin 81mg Ec Tab) 81 mg DAILY PO 12/24/24 09:00 01/23/25 08:59 01/16/25 10:00 81 MG Atorvastatin Calcium (LIPItor 40MG) 40 mg HS PO 12/24/24 21:00 01/01/25 11:16 DC 12/31/24 20:44 40 MG Atorvastatin Calcium (LIPItor 40MG) 40 mg HS PO 01/07/25 21:00 02/06/25 20:59 01/15/25 21:10 40 MG Benzocaine (Cepacol Sore Throat Lozenge) 1 each Q4H PRN MM SORE THROAT 01/03/25 13:30 02/02/25 13:29 01/06/25 11:16 1 EACH Bisacodyl (DulcoLAX) 10 mg DAILY PRN RC CONSTIPATION - MOM INEFFECTIVE 12/29/24 14:00 01/28/25 13:59 12/30/24 11:05 10 MG Calcium Gluconate 1 gm/Sodium Chloride 60 ml @ 200 mls/hr AD PRN IV HYPOCALCEMIA 12/28/24 14:00 01/27/25 13:59 01/01/25 01:52 200 MLS/HR Cefazolin Sodium (ANCEF 1 gm vial) 2 gm ONCALL IVP 12/26/24 16:30 12/26/24 16:28 DC Cefazolin Sodium (Ancef) 2 gm ONCALL PRN IVP SURGERY 12/26/24 16:30 12/28/24 13:57 DC Cefazolin Sodium (Ancef) 2 gm Q8H IVPB 12/28/24 19:00 12/29/24 11:01 DC 12/29/24 11:04 2 GM Ceftriaxone Sodium (Rocephin 2gm Inj) 2 gm Q24H IVPB 01/14/25 13:30 01/24/25 13:29 01/16/25 13:50 2 GM Clopidogrel Bisulfate (plaVIX 75MG) 75 mg DAILY PO 01/08/25 09:00 02/07/25 08:59 01/16/25 10:00 75 MG Dexamethasone (DeCADron 4 mg TAB) 4 mg DAILY PO 01/13/25 09:00 01/12/25 17:40 DC Dexamethasone (DeCADron 4 mg TAB) 6 mg DAILY PO 01/09/25 09:00 01/09/25 08:06 DC Dexamethasone (DeCADron 4 mg TAB) 10 mg BID PO 01/09/25 09:00 01/12/25 13:07 DC 01/12/25 09:24 10 MG Dexamethasone (DeCADron 4 mg TAB) 10 mg DAILY PO 01/13/25 09:00 01/15/25 08:59 DC 01/14/25 08:32 10 MG Dexmedetomidine/ Sodium Chloride (PRECEdex 400MCG/ 100ML-NS) 400 mcg PROTOCOL IV 12/28/24 14:00 12/29/24 13:59 DC 12/29/24 12:16 400 MCG Dexmedetomidine/ Sodium Chloride (PRECEdex 400MCG/ 100ML-NS) 400 mcg PROTOCOL IV 12/29/24 18:00 01/28/25 17:59 12/31/24 06:05 400 MCG Dextrose (D50w) 50 ml AD PRN IV HYPOGLYCEMIA PROTOCOL 12/28/24 14:00 01/27/25 13:59 Dextrose (D50w) 50 ml ONCE STAT IV 12/30/24 11:36 12/30/24 11:39 DC 12/30/24 11:45 50 ML Dextrose/Sodium Chloride 1,000 ml @ 50 mls/hr Q20H IV 12/30/24 11:30 01/01/25 16:17 DC 01/01/25 02:09 50 MLS/HR Dobutamine HCl/ Dextrose 250 ml @ 0 mls/hr PROTOCOL IV 12/29/24 14:00 01/08/25 15:43 DC 01/05/25 08:48 4.1 MLS/HR Docusate Sodium (COLace 100MG CAP) 100 mg BID PO 12/28/24 21:00 12/29/24 08:01 DC 12/28/24 20:53 100 MG Docusate Sodium (COLace LIQUID 100MG/10ML) 100 mg BID PO 12/29/24 08:00 01/28/25 07:59 01/15/25 21:10 100 MG Enoxaparin Sodium (Lovenox) 30 mg DAILY SQ 12/31/24 09:00 12/31/24 16:12 DC Enoxaparin Sodium (Lovenox) 30 mg DAILY SQ 01/08/25 09:00 01/07/25 20:03 DC Epinephrine HCl 10 mg/Sodium Chloride 250 ml @ 0 mls/hr AD PRN IV TITRATE 12/27/24 11:00 01/26/25 10:59 12/30/24 04:29 0 MLS/HR Epinephrine HCl 10 mg/Sodium Chloride 250 ml @ 0 mls/hr AD PRN IV POST-OP CARDIOVASCULAR ORDERS 12/28/24 14:00 12/28/24 14:14 DC Famotidine (Pepcid 20mg Vial) 20 mg BID IV 12/28/24 21:00 12/31/24 20:20 DC 12/31/24 08:51 20 MG Famotidine (Pepcid 20mg Vial) 20 mg Q48H IV 01/02/25 09:00 01/02/25 04:51 DC Famotidine (Pepcid 20mg Tab) 20 mg DAILY PO 12/24/24 09:00 12/28/24 13:54 DC 12/26/24 10:19 20 MG Furosemide (LASix 20MG TAB) 20 mg Q12H PO 12/30/24 09:00 12/30/24 08:34 DC Furosemide (LASix 20MG VIAL) 20 mg Q12H IV 12/29/24 09:00 12/30/24 08:34 DC 12/29/24 09:20 20 MG Furosemide (LASix 40MG TAB) 40 mg BID@09,17 PO 01/10/25 17:00 02/09/25 16:59 01/16/25 09:59 40 MG Furosemide (LASix 40MG VIAL) 40 mg Q12H IV 01/08/25 20:00 01/10/25 09:57 DC 01/09/25 21:05 40 MG Furosemide 100 mg/ Sodium Chloride 100 ml @ 0 mls/hr PROTOCOL IV 12/29/24 14:30 01/08/25 13:45 DC 01/07/25 08:41 0 MLS/HR Glucagon (Glucagon 1mg Kit) 1 mg AD PRN IM HYPOGLYCEMIA PROTOCOL 12/28/24 14:00 01/27/25 13:59 Guaifenesin (MUCinex 600 MG TABLET.ER) 600 mg BID PRN PO COUGH 01/08/25 09:30 02/07/25 09:29 Guaifenesin/ Dextromethorphan (RobiTUSSin DM 200/20MG 10ML) 10 ml Q4H PRN PO COUGH 01/03/25 16:30 01/08/25 09:29 DC 01/07/25 08:25 10 ML Heparin Sodium (Porcine) (HEParin 5,000 UNIT VIAL) *calculation based on ACTUAL B... AD PRN IV HEPARIN PROTOCOL 12/24/24 02:30 12/28/24 13:54 DC 12/24/24 17:32 5,000 UNIT Heparin Sodium (Porcine) (HEParin 5,000 UNIT VIAL) 5,000 unit BID SQ 01/08/25 09:00 01/13/25 07:22 DC 01/12/25 21:40 5,000 UNIT Heparin Sodium/ Dextrose 250 ml @ 0 mls/hr Q6H IV 12/24/24 02:30 12/28/24 13:54 DC 12/27/24 17:04 11.3 MLS/HR Hydralazine HCl (APRESOLine 20MG INJ) 10 mg Q6H PRN IV For:SBP above 160;DBP above 90 12/24/24 03:00 12/28/24 13:54 DC Insulin Human Regular (humuLIN R 100 UNIT/ML 3ML) 10 unit ONCE STAT IV 12/30/24 11:42 12/30/24 11:45 DC 12/30/24 12:01 10 UNIT Insulin Human Regular (humuLIN R 100 UNIT/ML 3ML) 10 unit ONCE STAT SQ 12/30/24 11:36 12/30/24 11:43 DC Insulin Human Regular 100 unit/ Sodium Chloride 100 ml @ 0 mls/hr AD IV 12/28/24 14:00 12/29/24 17:55 DC 12/28/24 17:09 5 MLS/HR Ipratropium [place] (AtrovENT UD) 0.5 mg [id number] IH 12/30/24 12:00 01/29/25 11:59 01/16/25 11:34 0.5 MG Lactulose (Constulose 20gm/ 30ml Udcup) 20 gm BID PRN PO CONSTIPATION 12/24/24 03:00 12/28/24 13:54 DC 12/26/24 21:30 20 GM Lactulose (Constulose 20gm/ 30ml Udcup) 20 gm BID PRN PO CONSTIPATION 12/28/24 14:00 01/27/25 13:59 12/30/24 07:50 20 GM Lidocaine HCl/ Dextrose 250 ml @ 0 mls/hr AD PRN IV TITRATE 12/28/24 22:30 12/29/24 16:00 DC 12/29/24 06:53 15 MLS/HR Magnesium Hydroxide (Milk Of Magnesium 30ml) 30 ml DAILY PRN PO CONSTIPATION 12/28/24 14:00 01/27/25 13:59 12/30/24 10:18 30 ML Magnesium Sulfate 50 ml @ 12.5 mls/hr AD PRN IV MAG LEVEL LESS THAN 2.0 12/28/24 14:00 01/12/25 07:16 DC 12/28/24 18:42 12.5 MLS/HR Magnesium Sulfate 50 ml @ 0 mls/hr PROTOCOL PRN IV MAGNESIUM PROTOCOL 12/26/24 15:00 12/28/24 14:10 DC Magnesium Sulfate 50 ml @ 0 mls/hr PROTOCOL PRN IV MAGNESIUM PROTOCOL 01/12/25 07:30 02/11/25 07:29 Metolazone (zarOXOlyn) 5 mg ONCE PO 12/31/24 12:00 12/31/24 20:18 DC 12/31/24 12:01 5 MG Metolazone (zarOXOlyn) 5 mg ONCE PO 01/01/25 16:30 01/02/25 16:29 DC 01/01/25 16:53 5 MG Metoprolol Tartrate (loprESSOR) 12.5 mg BID PO 12/30/24 09:00 01/04/25 08:51 DC 01/03/25 20:09 12.5 MG Metoprolol Tartrate (loprESSOR) 25 mg BID PO 12/25/24 21:00 12/28/24 13:54 DC 12/28/24 09:28 25 MG Metoprolol Tartrate (loprESSOR) 25 mg TID PO 01/04/25 09:00 01/06/25 13:08 DC 01/06/25 09:27 25 MG Metoprolol Tartrate (loprESSOR) 50 mg BID PO 01/06/25 21:00 02/05/25 20:59 01/16/25 09:59 50 MG Morphine Sulfate (morPHINE 2MG SYG) 0.5 mg Q2H PRN IV MODERATE PAIN (4-6) 12/28/24 14:00 12/29/24 13:59 DC Morphine Sulfate (morPHINE 2MG SYG) 1 mg Q2H PRN IV SEVERE PAIN (7-10) 12/28/24 14:00 12/29/24 13:59 DC 12/28/24 17:05 1 MG Morphine Sulfate (morPHINE 2MG SYG) 2 mg Q4H PRN IVP SEVERE PAIN (7-10) 12/24/24 03:00 12/28/24 13:54 DC 12/26/24 02:43 2 MG Nitroglycerin (Nitroglycerin 1gm Oint) 0.5 inch Q8H5 TD 12/24/24 01:30 12/28/24 13:54 DC 12/27/24 12:57 0.5 INCH Nitroglycerin (Nitroglycerin 1gm Oint) 1 inch Q8H TD 01/04/25 15:00 02/03/25 14:59 01/16/25 06:37 1 INCH Nitroglycerin/ Dextrose 0 ml @ 0 mls/hr AD IV 12/28/24 14:00 12/31/24 14:00 DC Nitroglycerin/ Dextrose 0 ml @ 0 mls/hr AD PRN IV TITRATE 01/01/25 06:30 01/31/25 06:29 01/07/25 01:12 0 MLS/HR Norepinephrine Bitartrate 250 ml @ 0 mls/hr AD PRN IV TITRATE 12/27/24 11:00 01/26/25 10:59 01/04/25 06:14 0 MLS/HR Norepinephrine Bitartrate 8 mg/ Dextrose 250 ml @ 0 mls/hr AD PRN IV POST-OP CARDIOVASCULAR ORDERS 12/28/24 14:00 12/28/24 14:14 DC Nystatin (NYSTatin 424139 UNIT/ML 5ML UDCUP) 10 ml TID PO 01/07/25 21:00 02/06/25 20:59 01/16/25 13:50 10 ML Nystatin (NystOP 15 GM POWDER) APPLY TO PERINEAL AREA... BID TP 01/08/25 21:00 02/07/25 20:59 01/16/25 10:02 1 APPL Ondansetron HCl (zoFRAN 4MG INJ) 4 mg Q6H PRN IV NAUSEA/VOMITING 12/24/24 03:00 12/28/24 13:54 DC Ondansetron HCl (zoFRAN 4MG INJ) 4 mg Q6H PRN IV NAUSEA/VOMITING 12/28/24 14:00 01/27/25 13:59 12/30/24 11:01 4 MG Pantoprazole Sodium (PROTonix 40MG INJ) 40 mg BID IVP 01/05/25 09:00 02/04/25 08:59 01/16/25 10:00 40 MG Pantoprazole Sodium (PROTonix 40MG INJ) 40 mg Q12H IVP 01/02/25 05:00 01/05/25 04:04 DC 01/04/25 16:00 40 MG Phenol (Sore Throat [place]) 1 SPRAY Q4H PRN PO SORE THROAT 01/06/25 10:30 01/09/25 08:15 DC 01/06/25 16:37 1 SPRY Piperacillin Sod/ Tazobactam Sod (Zosyn 3.375gm+NS 50ml) 3.375 gm Q12H IV 12/30/24 15:30 01/05/25 04:05 DC 01/04/25 14:38 3.375 GM Piperacillin Sod/ Tazobactam Sod (Zosyn 3.375gm+NS 50ml) 3.375 gm Q12H IV 01/05/25 09:00 01/09/25 08:59 DC 01/08/25 20:35 3.375 GM Potassium Phosphate 250 ml @ 42 mls/hr AD PRN IV LOW PHOS LEVEL 12/28/24 14:00 01/27/25 13:59 12/29/24 06:12 42 MLS/HR Potassium Chloride 100 ml @ 100 mls/hr AD PRN IV POTASSIUM PROTOCOL 12/26/24 15:00 12/28/24 13:54 DC Potassium Chloride 100 ml @ 100 mls/hr AD PRN IV HYPOKALEMIA 12/28/24 14:00 01/12/25 07:19 DC 01/06/25 20:02 100 MLS/HR Potassium Chloride 100 ml @ 100 mls/hr AD PRN IV POTASSIUM PROTOCOL 01/08/25 08:30 02/07/25 08:29 Potassium Chloride 100 ml @ 100 mls/hr AD PRN IV POTASSIUM PROTOCOL 01/12/25 07:30 02/11/25 07:29 Potassium Chloride (K-Dur/Klor-Con 20meq) 20 meq AD PRN PO POTASSIUM PROTOCOL 12/26/24 15:00 12/28/24 13:54 DC 12/26/24 18:27 20 MEQ Potassium Chloride (K-Dur/Klor-Con 20meq) 20 meq AD PRN PO POTASSIUM PROTOCOL 01/12/25 07:30 02/11/25 07:29 Potassium Chloride (KCl 10% Elixir 20meq/15ml) 20 meq AD PRN PO POTASSIUM PROTOCOL 12/26/24 15:00 12/28/24 13:54 DC Potassium Chloride (KCl 10% Elixir 20meq/15ml) 20 meq AD PRN PO POTASSIUM PROTOCOL 01/12/25 07:30 02/11/25 07:29 01/13/25 06:24 20 MEQ Propofol 100 ml @ 0 mls/hr AD PRN IV SEDATION 12/28/24 14:00 01/01/25 13:59 DC Sodium Polystyrene Sulfonate (kayEXALate 15 GM/60 ML) 30 gm ONCE STAT PO 12/30/24 11:36 12/30/24 11:39 DC 12/30/24 11:45 30 GM Sodium Bicarbonate (Sodium Bicarb 50meq 50ml Vial) 50 meq AD PRN IV OTHER[SEE DOSING INSTRUCTIONS] 12/28/24 14:00 12/31/24 14:00 DC 12/30/24 12:45 100 MEQ Sodium Chloride 500 ml @ 0 mls/hr AD IV 12/28/24 14:00 01/27/25 13:59 Sodium Chloride 1,000 ml @ 10 mls/hr ONCE IV 12/28/24 14:00 12/29/24 13:59 DC 12/28/24 17:06 10 MLS/HR Sodium Chloride (NS Flush 10ml) 10 ml Q8H PRN IVP IV LINE FLUSH 12/28/24 14:00 01/27/25 13:59 Sodium Chloride (Sodium Chloride 3% Inh) 4 ML [id number] IH 01/04/25 12:00 02/03/25 11:59 01/16/25 11:34 4 ML Tramadol HCl (UltRAM) 25 mg Q6H PRN PO MODERATE PAIN (4-6) 12/28/24 14:00 12/29/24 13:56 DC 12/29/24 11:05 25 MG Tramadol HCl (UltRAM) 50 mg Q6H PRN PO SEVERE PAIN (7-10) 12/28/24 14:00 12/29/24 13:56 DC Vasopressin 20 units/Sodium Chloride 100 ml @ 0 mls/hr PROTOCOL IV 12/30/24 15:30 01/29/25 15:29 12/31/24 10:40 6 MLS/HR Wound Care/ Dressing Products (Venelex Ointment) apply to buttocks and scrotum BID TP 01/11/25 21:00 02/10/25 20:59 01/16/25 10:01 1 GM DIAGNOSTICS / RADIOLOGY: [ ] ASSESSMENT: Multi-vessel coronary artery disease status post CABG 12/28/2024 Non-STEMI. 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 Hypertension. Anemia. ERICK possibly due to ATN New onset atrial fibrillation, not POA PLAN: ACS NSTEMI due to Multi vessel CAD, s/p CABG 12/28/2024 * Continue aspirin, atorvastatin * Continue p.o. clopidogrel as per Cardiology * Encouraged to use IS and to clear the secretions and use p.r.n. benzocaine spray for throat irritation Lactic acidosis, suspected type B due to regional hypoperfusion to left foot * Lactic acid today was elevated at 2.8 * Patient white count is 11.8 and is hemodynamically stable * Urinalysis is negative for UTI * Blood cultures sent on 01/12 and 01/14 showed no growth so far * We discontinued his PICC line * Continue IV Rocephin 2g Q 24 * Will continue to monitor Erythematous scraped lesion on the base of scrotum on the right side * Mild erythematous lesion found on the base of scrotum on right side * Continue nystatin powder p.r.n. and petroleum gel * Patient denies pain and there is no tenderness to palpation * Ordered scrotal support Hyperglycemia, resolved * Patient's blood glucose is 115 * Patient is not diabetic and his Hba1c on admission was 5.8 * Tapered dexamethasone completely * Advised tos stop drinking ensure drinks containing added sugars and switch it to glucern HFrEF LV ejection fraction 25-30% by echo on 01/01/2025 * Patient LVEF is 25-30% by echocardiography, down from 50-55% on 12/27/24 * Lasix drip is weaned off and patient is started on Lasix 40 mg PO Q12H by Nephrology * Resume GDMT for heart failure when deemed appropriate by Cardiology consult * Strict I&O and daily weights 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 Still complains of pulsatile burning pain on the medial aspect of left foot * Patient underwent left lower extremity femoral thrombectomy on 01/01, after finding monophasic waveforms be on popliteal artery by arterial Doppler * Continue atorvastatin and aspirin * Continue nitroglycerin paste and regular dressing changes by stenographer print shop * Patient was able to walk around in his room * Monitor leg perfusion, pulses, swelling, and discoloration Anemia, post CABG, resolved * Patient received 4 units of packed RBCs * Iron panel showed Iron 20, % Sat 5.5, TIBC 360 indicating Iron deficiency, received 2 doses of IV Venofer * Patient hemoglobin is stable at 12.3 * Monitor CBC daily in the a.m. daily * Monitor for signs of bleeding Acute on chronic renal dysfunction * Patient has urine output of 550 mL * Creatinine Improved from 4.4-4.1 * Monitor CBC and electrolytes in the a.m. daily * Avoid nephrotoxic agents New onset atrial fibrillation, not POA * Amiodarone 200 mg p.o. as per Cardiology recommendation * Continue Eliquis 2.5 mg BID * Currently in sinus rhythm GI prophylaxis with Protonix 40 mg IV Continue DVT prophylaxis with heparin 5000 SQ b.i.d. ATTESTATION BY PHYSICIAN I have seen and examined the patient. I reviewed the documentation, medical decision making, and treatment plan as noted by the resident provider above. I agree with the findings and plan of care. Christiano Gibson MD, ADIL SHAH QUADRI MD Jan 16, 2025 15:15
--- NOTE | 2025-01-16 16:00 | NUR ---
SPEECH NOTE: PRINCIPAL STRATEGIST coordinated with nurse Mott. As per nurse, patient tolerates pureed solids and thin liquids with no s/s of aspiration; however, continues with decreased vocal quality. Recommend continue with diet recommendations and ENT as outpatient to further evaluate vocal quality and odynophagia. Speech therapy not warranted at this time. All questions answered. Addendum: 01/16/[address] NOHELIA LERMA Amended: Links added.
--- NOTE | 2025-01-16 20:18 | PN ---
SUBJECTIVE: A 54-year-old diabetic male, BUN 106, creatinine 4.1, potassium 3.3, white count 11.8, hemoglobin 12.3 and 38.4, platelets 660. The patient is currently receiving IV ceftriaxone. The patient will be evaluated for outpatient placement. Cardiology feels the patient's renal function continues to slowly improve and urine output has been adequate with the diuretics. manager public is evaluating the patient for final disposition, which will be to home. He has been followed by the Cardiothoracic Surgery Service. Cardiothoracic Surgery feels the patient may be discharged to home once he is self-sufficient with ambulation. The patient is being followed by Cardiology. He continues to be receiving the Eliquis status post coronary artery bypass grafting 12/28/2024, removal of intraaortic balloon pump and thrombectomy 12/31/2024. Lower extremity ischemia on the left appears to be embolic in nature. He has strongly audible Doppler pulses on that left side. He has [id number] combined heart failure with an ejection fraction of 25% to 30%, cardiorenal syndrome, acute renal failure, hypertension, anemia, and hyperkalemia. OBJECTIVE: On examination today, he has dry eschars to the entirety of digits 1, 2, 3, and 4 and the tip of the fifth digit on the left. Blisters and hemorrhagic lesions of the dorsal aspect and plantar aspect of the forefoot bilaterally are resolving. Digits are cold. Audible Doppler studies to the anterior tibial and posterior tibial pulse on the left. ASSESSMENT: This is a 54-year-old male status post thrombectomy, removal of intraaortic balloon pump after 4-vessel coronary artery bypass grafting procedure, acute renal failure, new onset, atrial fibrillation, demarcating necrosis of his digits on the left foot in the presence of audible Dopplers to the anterior and posterior tibial pulses on the left and bulla to the dorsal and plantar aspect of the midfoot, forefoot on the left. Acute renal failure being followed by Nephrology. No need for renal placement. From their standpoint, the patient has been evaluated for outpatient placement. The patient apparently will be transferred to home. The patient is ambulating with surgical shoes with physical therapy. PLAN: We will continue to monitor the patient closely for the ischemic changes. The digits they are dry and they are stable and they are showing no clinical signs of infection. His bullous lesions are resolving. His blood cultures have been negative. His white count is improving. He is receiving IV ceftriaxone. We will continue with the ceftriaxone. We will continue with dry dressings to the left foot. Continue to ambulate with his surgical shoe. From my stand being discharged to home when okay with other services, he can follow up with a doctor in the area in the [facility]. Apparently, the patient is from [place]. We will follow the patient closely while in-house. TID: [id number] RECEIPT: [id number]
--- NOTE | 2025-01-16 20:54 | PN ---
SUBJECTIVE: Status post CABG and thrombectomy, coursing postop day #19. OBJECTIVE: GENERAL: Awake, alert, in no acute distress. VITAL SIGNS: Stable as recorded in the medical record. CHEST: Sternum stable. Incision sealed. LUNGS: Clear. EXTREMITIES: With some discoloration on the left foot, especially in the toes, have been managed conservatively with dressing changes by Dr. Persaud. HEART: Regular rate and rhythm. ASSESSMENT AND PLAN: Status post CABG. * Coronary artery disease. Aspirin 81 mg, metoprolol 25 mg twice a day. * Dyslipidemia. Lipitor 40 mg once a day. * Fasciotomy and thrombectomy. Vascular pulses are present in the lower foot. There was some tissue loss in the toes that has been covered with antibiotics. He has got a foot splint and OT and PT has been working with him. * Fluid overload. Lasix 20 mg twice a day. * Acute kidney injury without dialysis. BUN and creatinine are coming down to normal levels. PLAN: OT, PT, cardiac rehab. TID: [id number] RECEIPT: [id number]
[2025-01-17] VITALS (13 sets, daily range): BP systolic 113–143; BP diastolic 67–97; PULSE 51–83; RESP 18–20; TEMP 97.6–98.5; O2SAT 96–99
[2025-01-17 05:05] LABS: IMMATURE GRANULOCYTE ABSOLUTE 0.16 K/uL (0-1); NUCLEATED RED BLOOD CELLS 0.0 % (0.0-0.19); PLATELET COUNT (AUTO) 569 K/uL (130-400); RED BLOOD CELL COUNT(AUTO) 4.64 MIL/uL (4.50-6.20); RED CELL DISTRIBUTION WIDTH 25.9 % (11.0-15.5); WHITE BLOOD COUNT (AUTO) 9.0 K/uL (4.8-10.8)
[2025-01-17 05:21] LABS: CREATININE 3.8 mg/dL (0.5-1.3); GLOMERULAR FILTR. RATE CALC 18.0 mL/min (>90); GLUCOSE,RANDOM 103.0 mg/dL (70-105); SODIUM SERUM 132.0 mmol/L (136-145)
[2025-01-17 05:31] LABS: UREA NITROGEN, BLOOD 93.0 mg/dL (7-18)
--- NOTE | 2025-01-17 05:37 | PN ---
[facility] CARDIOLOGY PROGRESS NOTE Date Patient Seen: Jan 17, 2025 Time of Visit: 05:33 Interval History: No acute events overnight He has pain to the Left foot with weight bearing but otherwise feels well Physical Examination: GENERAL: [No acute distress.] NECK: R CVC LUNGS: [ diminished inspiratory effort. No wheezes, or rhonchi.] HEART: [Normal rate and rhythm. Normal S1 and S2 without murmurs, gallop or rub.] VASC: [Peripheral pulses +1 bilaterally. ABD: soft, nontender SKIN: LLE foot/ankle wrapped. NEURO: [Awake, alert , moves all extremities.] Laboratory: [ ] Hematology Labs: Test 01/17/25 04:40 Range/Units White Blood Count 9.0 4.8-10.8 K/uL Red Blood Count 4.64 4.50-6.20 MIL/uL Hemoglobin 12.2 L 14.0-18.0 g/dL Hematocrit 38.2 L 42-54 % Mean Corpuscular Volume 82.3 79-99 fL Mean Corpuscular Hemoglobin 26.3 L 27.0-33.0 pg Mean Corpuscular Hemoglobin Concent 31.9 L 32.0-36.0 g/dL Red Cell Distribution Width 25.9 H 11.0-15.5 % Platelet Count 569 H 130-400 K/uL Mean Platelet Volume 11.4 H 7.5-10.5 fL Immature Granulocyte % (Auto) 1.8 H 0-1 % Neutrophils (%) (Auto) 74.5 40.0-77.0 % Lymphocytes (%) (Auto) 13.1 L 21.0-51.0 % Monocytes (%) (Auto) 8.6 3.0-13.0 % Eosinophils (%) (Auto) 1.9 0.0-8.0 % Basophils (%) (Auto) 0.1 0.0-5.0 % Neutrophils # (Auto) 6.7 1.8-7.7 K/uL Lymphocytes # (Auto) 1.2 1.0-4.8 K/uL Monocytes # (Auto) 0.8 0.1-1.0 K/uL Eosinophils # (Auto) 0.17 0.00-0.70 K/uL Basophils # (Auto) 0.01 0.00-0.20 K/uL Absolute Immature Granulocyte (auto 0.16 0-1 K/uL Nucleated Red Blood Cells 0.0 0.0-0.19 % Chemistry Labs: Test 01/17/25 04:40 01/15/25 16:07 Range/Units Sodium Level 132 L 136-145 mmol/L Potassium Level 3.1 L 3.5-5.1 mmol/L Chloride Level 97 L 101-111 mmol/L Carbon Dioxide Level 23 21-32 mmol/L Blood Urea Nitrogen 93 *H 7-18 mg/dL Creatinine 3.8 H 0.5-1.3 mg/dL Glomerular Filtration Rate Calc 18 >90 mL/min Random Glucose 103 70-105 mg/dL Lactic Acid Level 1.8 0.8-2.5 mmol/L Total Calcium 8.1 L 8.5-10.1 mg/dL Whole Blood Glucose 183 H 70-110 MG/DL Impression and Plan: ACS-NSTEMI MVCAD s/p CABG with VG-RCA, VG-OM, TORRES-LAD and VG-distal LAD LLE ALI while IABP in place, status post femoral thrombectomy, placed on argatroban. New onset atrial fibrillation with rapid ventricular response, converted, placed on renally dose Eliquis Hypertension ICMP LVEF 25-30% Acute renal failure without dialysis #ACS-NSTEMI on presentation Patient presented as a transfer for admission due to NSTEMI Presenting hemoglobin was 7.1 g, underwent EGD was negative for active bleeding or ulcers Coronary angiogram revealing MVCAD s/p 4 v CABG and insertion of aortic balloon pump with VG-RCA, VG-OM, TORRES-LAD and VG-distal LAD, Removal of IABP 12/31 Creatinine improving currently at 4 (max 8). Continue Plavix 75 mg daily, ASA 81 mg daily, Lopressor 50 mg every12 hours and atorvastatin 40 mg q.h.s. #HFrEF ICM-LVEF 25-30%- NYHA II Euvolemic and compensated on exam 2D echocardiogram (01/01/2025) LVEF 25-30%, hypokinetic anterior wall and apex. Strict I's and O's and daily weights. Continue Lasix , GDMT: Continue Lopressor 50 mg every12 hours Unable to utilize other GDMT agents due to impaired renal function # paroxysmal atrial fibrillation Documented episode atrial fibrillation with RVR on 01/04/2025 Initially cardioverted with amiodarone bolus and infusion, placed on renally dose Eliquis -- case management consultation for coupon card. Will likely need to be transitioned to warfarin as outpatient due to finances. Keep on telemetry, monitor/replace electrolytes as needed ( Mg >2 , K > 4 ) #PAD s/p Removal of intra-aortic balloon pump , thrombectomy, and fasciotomy. Bilateral lower extremity arterial doppler dated 12/31/2024 : Monophasic waveforms throughout the left lower extremity suggesting of inflow disease No flow seen in the left anterior tibial artery or dorsalis pedis arteries. No plans for invasive angiography at this time due to tenuous renal function. Discharge planning... MACEY GALO DO Jan 17, 2025 05:37
[2025-01-17] MEDS: PoTASSium chloRIDE 20MEQ ER 20 MEQ ERTAB PO PRN (06:32)
--- NOTE | 2025-01-17 08:37 | PN ---
SUBJECTIVE: The patient is a 54-year-old diabetic, Latin-[place]ian male who is seen today, afebrile and his white count was 9.0, H and H 12 and 38, platelets 569. BUN 93, creatinine 3.8. The patient is currently receiving IV ceftriaxone, Eliquis, and Plavix. The patient is pending a planned discharge to home, being followed for status post coronary artery bypass grafting x 4, status post removal of aortic balloon pump with thrombectomy and fasciotomy. The patient has ischemic changes to the digits of his foot on the left in the presence of Dopplerable pulses on the left, acute on chronic combined heart failure with an ejection fraction of 25-30%. OBJECTIVE: Examination today, dry eschars to his entire digits 1, 2, 3, 4 and the tip of the fifth digit, blisters and hemorrhagic lesions to the dorsum of his plantar and dorsal forefoot are resolving. Digits are cold. ____ Dopplers to the anterior tibia and posterior tibia on the left. ASSESSMENT: A 54-year-old male with demarcating necrosis to his digits, status post thrombectomy, status post 4-vessel coronary artery bypass grafting. PLAN: We will monitor the patient's ischemic changes to his digits. They are dry and they are stable and they have shown no clinical signs of infection. His bullous lesions are resolving. His blood cultures have been negative. His white count is improving. He is receiving IV ceftriaxone. The patient is ambulating with surgical shoes. From my standpoint, ____ discharge to home, follow up as an outpatient. TID: [id number] RECEIPT: [id number]
--- NOTE | 2025-01-17 09:32 | PN ---
FOLLOWUP PROGRESS NOTE SUBJECTIVE: This is a 54-year-old male status post coronary bypass graft surgery. He has had acute renal failure postoperatively. Creatinine continues to slowly improve. The patient is being seen by Case Management in regards to final disposition and he is being seen as a followup visit for all the above. REVIEW OF SYSTEMS: CONSTITUTIONAL: He is feeling improved. HEENT: No change in vision. No change in hearing. CARDIOVASCULAR: No current chest pain or palpitations. PULMONARY: No shortness of breath. GASTROINTESTINAL: He is tolerating a diet. MUSCULOSKELETAL: Complains of weakness. PHYSICAL EXAMINATION: VITAL SIGNS: Blood pressure 130/68, pulse is 70. He is afebrile. GENERAL: Chronically ill male, much older than appearing. HEENT: Head is atraumatic. Pupils equal, round, and reactive to light. Oropharynx is without exudate. Nares clear. NECK: There is no JVP. There is no thyromegaly, no mass. CARDIOVASCULAR: Regular. There is no S3, S4 or gallop. LUNGS: Coarse with equal thoracic movement. ABDOMEN: Soft, nondistended, and nontender. EXTREMITIES: Reveal no clubbing, no cyanosis. NEUROLOGICAL: He is awake. He is alert. LABORATORY DATA: Sodium 132, potassium is 3, BUN 93, creatinine is 3.8. Hemoglobin 12, hematocrit 38. IMPRESSION: * Acute renal failure. * Coronary artery disease, status post CABG. * Diabetes mellitus. * Hypertension. * Electrolyte abnormalities. PLAN: The patient's creatinine continues to slowly improve. He does remain on the diuretics. The patient's potassium has been aggressively repleted. The patient is being seen by Case Management in regard to final disposition, which will be home. We will continue to follow closely. Once the patient is discharged, he can follow up in the [facility]. TID: [id number] RECEIPT: [id number]
--- NOTE | 2025-01-17 11:30 | NUR ---
CM note Spoke to pt and son regarding discharge and have agreed to go home. Bedside nurse to render pt education regarding woundcare and assisting to obtain arnaldo visits for pt.
--- NOTE | 2025-01-17 13:50 | NUR ---
[facility] Follow-up: Unable to assess at this time, patient placed on Bipap. No changes to right buttock DTI. Addendum: 01/17/25 at 1558 by ANNIE FINN RN RN/ Amended: Links added.
--- NOTE | 2025-01-17 14:10 | NUR ---
[facility] Follow-up: Patient re-assessed by wound healing team. Resolving excoriation to scrotum/buttocks. Left foot wound managed by Dr. Persaud. Assessment and recommendations provided to primary nurse. Education provided. Addendum: 01/17/25 at 1556 by ANNIE FINN RN RN/ Amended: Links added.
--- NOTE | 2025-01-17 15:13 | CONS ---
CONSULTATION NOTE Date of Service: Jan 17, 2025 Reason for Consultation: [ ] Requesting Physician: [ ] HISTORY OF PRESENT ILLNESS: [ ] REVIEW OF SYSTEMS CONSTITUTIONAL: Denies fever, chills, or fatigue. HEAD/FACE: No signs of trauma. EENT: Denies eye pain, blurred vision, double vision, or light sensitivity. RESPIRATORY: Denies shortness of breath, cough, wheezing CARDIOVASCULAR: Denies chest pain, palpitation, syncope GASTROINTESTINAL/ABDOMINAL: Denies abdominal pain, constipation, diarrhea, nausea or vomiting GENITOURINARY: Denies dysuria or hematuria. MUSCULOSKELETAL: Denies joint pain, tenderness, or trauma. INTEGUMENTARY: Denies rash or itchiness NEUROLOGICAL/PSYCH: Denies anxiety, depression, heat or cold intolerance. PAST MEDICAL HISTORY: [ ] PAST SURGICAL HISTORY: [ ] PAST SOCIAL HISTORY: [ ] FAMILY HISTORY: [ ] Coded Allergies: No Known Drug Intolerances (Unverified Allergy, Unknown, 12/24/24) PHYSICAL EXAM EYES: Anicteric. Pupils equal and reactive. HENT: No oral thrush seen, moist Oral mucosa NECK: Supple, no JVD or thyromegaly. LUNGS: Good air entry. No rales, no rhonchi. CARDIOVASCULAR: S1, S2 regular. No murmur heard. ABDOMEN: Soft, non tender, bowel sounds present, no organomegaly CENTRAL NERVOUS SYSTEM: Awake, alert, oriented x 3. No focal deficits. SKIN: No rashes, no swelling. LYMPHATICS: No peripheral lymphadenopathy MUSCULOSKELETAL: No joint swelling, erythema or tenderness. EXTREMITIES: No cyanosis or clubbing BACK: No deformity, no pressure ulcer. GENITOURINARY: No dysuria or hematuria Vital Sign (Last 24 Hours) 01/16/25 01/17/25 01/17/25 01/17/25 20:00 07:14 11:00 11:56 Temp 98.4 Pulse 79 Resp 18 B/P (MAP) 131/89 Pulse Ox 99 O2 Delivery Room Air O2 Flow Rate 0 FiO2 21 Intake & Output (last 24hrs) 01/16/25 01/16/25 01/17/25 15:00 23:00 07:00 Intake Total 100.0 ml 380 ml Output Total 350 ml 600 ml 900 ml Balance -250.0 ml -220 ml -900 ml LABS: Laboratory: Test 01/17/25 11:47 01/17/25 04:40 Range/Units Whole Blood Glucose 151 H 70-110 MG/DL Bedside Glucose Comment Notified Nurse White Blood Count 9.0 4.8-10.8 K/uL Red Blood Count 4.64 4.50-6.20 MIL/uL Hemoglobin 12.2 L 14.0-18.0 g/dL Hematocrit 38.2 L 42-54 % Mean Corpuscular Volume 82.3 79-99 fL Mean Corpuscular Hemoglobin 26.3 L 27.0-33.0 pg Mean Corpuscular Hemoglobin Concent 31.9 L 32.0-36.0 g/dL Red Cell Distribution Width 25.9 H 11.0-15.5 % Platelet Count 569 H 130-400 K/uL Mean Platelet Volume 11.4 H 7.5-10.5 fL Immature Granulocyte % (Auto) 1.8 H 0-1 % Neutrophils (%) (Auto) 74.5 40.0-77.0 % Lymphocytes (%) (Auto) 13.1 L 21.0-51.0 % Monocytes (%) (Auto) 8.6 3.0-13.0 % Eosinophils (%) (Auto) 1.9 0.0-8.0 % Basophils (%) (Auto) 0.1 0.0-5.0 % Neutrophils # (Auto) 6.7 1.8-7.7 K/uL Lymphocytes # (Auto) 1.2 1.0-4.8 K/uL Monocytes # (Auto) 0.8 0.1-1.0 K/uL Eosinophils # (Auto) 0.17 0.00-0.70 K/uL Basophils # (Auto) 0.01 0.00-0.20 K/uL Absolute Immature Granulocyte (auto 0.16 0-1 K/uL Nucleated Red Blood Cells 0.0 0.0-0.19 % Sodium Level 132 L 136-145 mmol/L Potassium Level 3.1 L 3.5-5.1 mmol/L Chloride Level 97 L 101-111 mmol/L Carbon Dioxide Level 23 21-32 mmol/L Blood Urea Nitrogen 93 *H 7-18 mg/dL Creatinine 3.8 H 0.5-1.3 mg/dL Glomerular Filtration Rate Calc 18 >90 mL/min Random Glucose 103 70-105 mg/dL Lactic Acid Level 1.8 0.8-2.5 mmol/L Total Calcium 8.1 L 8.5-10.1 mg/dL DIAGNOSTICS / RADIOLOGY: [ ] PROBLEM LIST : PLAN: [ ] MADHURI SAAVEDRA NP Jan 17, 2025 15:13
[2025-01-17] MEDS ORDERED: CLOP-31 PO (15:30)
[2025-01-17] MEDS ORDERED: ATOR40TA69 PO (15:30)
[2025-01-17] MEDS ORDERED: FURO20TA6 PO (15:30)
[2025-01-17] MEDS ORDERED: ACET-2247 PO (15:30)
[2025-01-17] MEDS ORDERED: METO50 PO (15:30)
--- NOTE | 2025-01-17 15:33 | DS ---
Discharge Summary Assessment/Plan: ASSESSMENT: Multi-vessel coronary artery disease status post CABG 12/28/2024 Non-STEMI. 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 Hypertension. Anemia. ERICK possibly due to ATN New onset atrial fibrillation, not POA PLAN: ACS NSTEMI due to Multi vessel CAD, s/p CABG 12/28/2024 * Continue aspirin, atorvastatin * Continue p.o. clopidogrel as per Cardiology * Encouraged to use IS and to clear the secretions and use p.r.n. benzocaine spray for throat irritation Lactic acidosis, suspected type B due to regional hypoperfusion to left foot * Lactic acid today was elevated at 2.8 * Patient white count is 11.8 and is hemodynamically stable * Urinalysis is negative for UTI * Blood cultures sent on 01/12 and 01/14 showed no growth so far * We discontinued his PICC line * Continue IV Rocephin 2g Q 24 * Will continue to monitor Erythematous scraped lesion on the base of scrotum on the right side * Mild erythematous lesion found on the base of scrotum on right side * Continue nystatin powder p.r.n. and petroleum gel * Patient denies pain and there is no tenderness to palpation * Ordered scrotal support Hyperglycemia, resolved * Patient's blood glucose is 115 * Patient is not diabetic and his Hba1c on admission was 5.8 * Tapered dexamethasone completely * Advised tos stop drinking ensure drinks containing added sugars and switch it to glucern HFrEF LV ejection fraction 25-30% by echo on 01/01/2025 * Patient LVEF is 25-30% by echocardiography, down from 50-55% on 12/27/24 * Lasix drip is weaned off and patient is started on Lasix 40 mg PO Q12H by Nephrology * Resume GDMT for heart failure when deemed appropriate by Cardiology consult * Strict I&O and daily weights 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 Still complains of pulsatile burning pain on the medial aspect of left foot * Patient underwent left lower extremity femoral thrombectomy on 01/01, after finding monophasic waveforms be on popliteal artery by arterial Doppler * Continue atorvastatin and aspirin * Continue nitroglycerin paste and regular dressing changes by package sorter * Patient was able to walk around in his room * Monitor leg perfusion, pulses, swelling, and discoloration Anemia, post CABG, resolved * Patient received 4 units of packed RBCs * Iron panel showed Iron 20, % Sat 5.5, TIBC 360 indicating Iron deficiency, received 2 doses of IV Venofer * Patient hemoglobin is stable at 12.3 * Monitor CBC daily in the a.m. daily * Monitor for signs of bleeding Acute on chronic renal dysfunction * Patient has urine output of 550 mL * Creatinine Improved from 4.4-4.1 * Monitor CBC and electrolytes in the a.m. daily * Avoid nephrotoxic agents New onset atrial fibrillation, not POA * Amiodarone 200 mg p.o. as per Cardiology recommendation * Continue Eliquis 2.5 mg BID * Currently in sinus rhythm GI prophylaxis with Protonix 40 mg IV Continue DVT prophylaxis with heparin 5000 SQ b.i.d. Home Medications: Reported Medications Aspirin (Adult Low Dose Aspirin EC) 81 Mg Tablet., 81 MG PO DAILY, TAB 12/24/24 JULIANA MORALES MD Jan 17, 2025 15:33
[2025-01-17] MEDS ORDERED: DOXY-466 PO (15:45)
[2025-01-17] MEDS ORDERED: APIX2.5T PO (15:45)
--- NOTE | 2025-01-17 16:30 | DS ---
Discharge Summary Hospital Course Summary: This is a case 54 year old with PMH of Anemia, HTN who was transferred from [facility] for coronary artery bypass grafting after presenting with chest pain described as intermittent, pressure like, left-sided associated with elevated high sensitivity troponin diagnosed as ACS/STEMI. He was also noted to have anemia with hemoglobin of 7.1. Echocardiogram revealed LVEF of 55-60%. EGD was negative for active bleeding ulcers and left heart catheterization demonstrated multivessel CAD. Initial EKG at [facility] showed sinus rhythm with sinus arrhythmia occasional PVCs and undetermined inferior infarct. He subsequently underwent CABG at [facility]. His hospital course was complicated by acute renal failure with creatinine peaking at 8.3 for which Nephrology was consulted. He has developed Left lower extremity ischemia while on intra-aortic balloon pump, requiring left femoral artery thrombectomy with advent of flow. He has also developed left lower extremity toe necrosis and blistering which stabilized and remained dry without infection, podiatry recommended conservative management. Additionally, he experienced episodes of new onset atrial fibrillation managed initially with IV amiodarone drip and later transitioned to oral amiodarone along with initiation of apixaban[to transition to warfarin as outpatient for f inancial reasons]. He was also noted to have sacral/buttock wounds for which Wound Care was consulted and gradual improvement was seen. Over the course of hospitalization is renal function slowly improved on Lasix drip, later transitioned to IV and currently maintained on oral furosemide 20 mg b.i.d..He tolerated diet advancement meth pureed to regular diet, ambulating comfortably with surgical shoes and remained hemodynamically stable. Today the patient is seen and examined at the bedside. Vitals blood pressure ranging in 110s to 120s/60s. He states that he feels well and has no new symptoms or complaints apart from pain in the left lower extremity during weight-bearing. Tolerating oral feeds without any nausea/vomiting. Ambulating well with physical therapy. Labs sodium 132, potassium 3.1, chloride 97, BUN 93, creatinine 3.8, glucose 162. He was cleared for discharge by Cardiology, CTS, Nephrology and Podiatry. Cardiology recommended continuation of aspirin, clopidogrel, metoprolol and atorvastatin daily with no active intervention for peripheral artery disease given renal status and continuation of apixaban for 1 month. Nephrology advised continuation of furosemide 20 mg b.i.d.. A coupon for apixaban was provided and arrangements were made for [facility] wound care follow up visits. Finance Effectiveness Manager(s): Nephrology consult , CTS consult , Podiatry consult , Critical care consult [facility], Cardiology consult [facility], Wound care consult , GI consult Procedure(s): SERVICE 9 REASON: chest tube ORDERING PHYSICIAN: BORIS LOW PROCEDURE: CXR1VW - CHEST 1VW EXAM: CR Chest, 1 view. CLINICAL HISTORY: Chest tube. COMPARISON: CR Chest. 01/08/2025. FINDINGS: The right PICC line with the tip in the superior vena cava. Stable scarring in the left mid zone. Stable trace mild left pleural effusion. The lungs show no infiltration. No pneumothorax. The cardio mediastinal silhouette is within normal limits. No acute osseous abnormality. IMPRESSION: The right PICC line with the tip in the superior vena cava. Stable scarring in the left mid zone. Stable trace mild left pleural effusion. [facility] SERVICE 06 REASON: chest tube ORDERING PHYSICIAN: BORIS LOW PROCEDURE: CXR1VW - CHEST 1VW EXAM: CR Chest, 1 View. CLINICAL HISTORY: chest tube COMPARISON: CR Chest Dated 01/07 FINDINGS: LUNGS: The lungs show no infiltrate or other acute finding. PLEURAL SPACES: Trace left pleural effusion. No residual pneumothorax MEDIASTINUM: The cardiomediastinal silhouette is within normal limits. BONES: No aggressive appearing osseous lesion seen. Post sternotomy changes. MISCELLANEOUS: Right PICC line mid SVC IMPRESSION: 1. No acute pulmonary findings. 2. Trace left pleural effusion. 3. Right PICC line terminating in mid SVC. /[place] SERVICE 06 REASON: chest tube ORDERING PHYSICIAN: BORIS LOW PROCEDURE: CXR1VW - CHEST 1VW CHEST 1VW REASON: chest tube COMPARISON: Prior chest radiograph from 01/05/2025 is available. FINDINGS: Single view of the chest was obtained. Lungs are clear. Heart size is normal with median sternotomy. There is a right-sided PICC catheter in place. There is a left-sided chest tube in place.. There is no pulmonary vascular congestion. Mediastinum and bony thorax appear unremarkable. IMPRESSION: 1. Status post median sternotomy with cardiac revascularization procedure 2. Support lines are in satisfactory position. 3. No evidence of airspace consolidation or pulmonary venous congestion. DICTATED BY: FRED NUNES MD DATE: 01/07/25 1032 SERVICE 0807 REASON: ischemic digits ORDERING PHYSICIAN: MACEY GALO DO PROCEDURE: ART U LE - US ARTERIAL UNILA LOW EXT DUPL EXAMINATION: DUPLEX ULTRASOUND EXAMINATION OF THE LEFT LOWER EXTREMITY ARTERIES. CLINICAL HISTORY: Pain. COMPARISON: Bilateral lower extremity arterial doppler dated 12/31/2024. FINDINGS: Peak systolic velocities within the left lower arteries are as follows: Common femoral artery: 217 cm/s. Superficial femoral artery: 45 cm/s at proximal, 47 cm/s at mid, and 45 cm/s at distal segments. Popliteal artery: 49 cm/s at proximal and 41 cm/s at distal segments. Posterior tibial artery: 38 cm/s. Anterior tibial artery: 28 cm/s. Dorsalis pedis artery: 55 cm/s. The left lower limb arteries demonstrate triphasic to biphasic waveforms in all arteries. There is intimal wall thickening and multilevel atherosclerosis in the left lower limb arteries. There is a hematoma that measures 2.6 x 2.7 cm adjacent to the left common femoral artery. IMPRESSION: Elevated velocity left inflow with drop in flow velocities suggesting mild to moderate inflow stenosis. Subcutaneous hematoma adjacent to the left common femoral artery. /[place] SERVICE 0600 REASON: POST CABG ORDERING PHYSICIAN: KATHRIN PONCE MD PROCEDURE: CXR1VW - CHEST 1VW CHEST 1VW REASON: POST CABG COMPARISON: Prior study from 01/04/2025 is available. FINDINGS: Single view of the chest was obtained. Lungs are clear. There is mild cardiomegaly with median sternotomy with cardiac revascularization procedure. There is a right-sided chest tube in place. There is a right internal jugular vascular sheath in place.. . There is no pulmonary vascular congestion. Mediastinum and bony thorax appear unremarkable. IMPRESSION: 1. Mild cardiomegaly with median sternotomy 2. Support lines satisfactory position 3. No evidence of airspace consolidation or pulmonary venous congestion.. SERVICE 181 REASON: PICC LINE PLACEMENT ORDERING PHYSICIAN: KATHRIN PONCE MD PROCEDURE: CXR1VW - CHEST 1VW EXAM: CR Chest, 2 View. CLINICAL HISTORY: PICC LINE PLACEMENT COMPARISON: 01/04/2025 FINDINGS: LUNGS: Mild pulmonary vascular congestion. No pulmonary infiltrates. PLEURAL SPACES: No evidence of pleural effusion or pneumothorax. MEDIASTINUM: Stable cardiomegaly. Again noted are sternotomy wires. BONES: No aggressive appearing osseous lesion seen. MISCELLANEOUS: Right sided PICC line with its tip in the superior vena cava. Right sided jugular sheath with its tip in the superior vena cava. IMPRESSION: 1. Right sided PICC line with its tip in the superior vena cava. Right sided jugular sheath with its tip in the superior vena cava. 2. Stable cardiomegaly. 3. Mild pulmonary vascular congestion. No pulmonary infiltrates. /[place] SERVICE 0711 REASON: post cabg ORDERING PHYSICIAN: KATHRIN PONCE MD PROCEDURE: CXR1VW - CHEST 1VW EXAM: CR Chest, single view. CLINICAL HISTORY: Post CABG. COMPARISON: Prior chest radiograph dated 03 January 2025. FINDINGS: Central venous catheter with tip in the region of the superior vena cava. Poststernotomy status. Borderline cardiomegaly. Mild right-sided pleural effusion with adjacent lung atelectasis. Intercostal drainage catheter in the left pleural cavity. No acute osseous abnormality. IMPRESSION: Central venous catheter with tip in the region of the superior vena cava. Poststernotomy status. Borderline cardiomegaly. Mild right-sided pleural effusion with adjacent lung atelectasis. Intercostal drainage catheter in the left pleural cavity. Compared to the prior study, there is no significant interval change. /[place] SERVICE 0600 REASON: pp ORDERING PHYSICIAN: CHEYENNE HENSON PROCEDURE: CXR1VW - CHEST 1VW EXAM: CR Chest, single view. CLINICAL HISTORY: PP COMPARISON: Prior chest radiograph dated 02 January 2025. FINDINGS: Right-sided central venous catheter with tip in the region of the superior vena cava. Chest tubes are changing positions. Mild right-sided pleural effusion with adjacent lung atelectasis. Subsegmental atelectasis in the lingula. Poststernotomy status. Mild cardiomegaly. No evidence of pneumothorax. No acute osseous abnormality. IMPRESSION: Right-sided central venous catheter with tip in the region of the superior vena cava. Mild right-sided pleural effusion with adjacent lung atelectasis. Subsegmental atelectasis in the lingula. Poststernotomy status. Mild cardiomegaly. No evidence of pneumothorax. Compared to the prior study, there is a mild reduction in the right-sided pleural effusion. /[facility] 0400 REASON: s/p CABG ORDERING PHYSICIAN: KATHRIN PONCE MD PROCEDURE: CXR1VW - CHEST 1VW EXAM: XR Chest, 1 View. CLINICAL HISTORY: 54-year-old male with Coronary artery bypass graft. COMPARISON: 01/01/2025. FINDINGS: LUNGS: Note is made of small bilateral pleural effusions. PLEURAL SPACES: See above. HEART: Mild cardiomegaly is present. BONES: No acute osseous abnormality. LINES AND TUBES: The nasogastric tube is projected over the central chest. Right internal jugular central line is in place. Endotracheal tube was present in the previous study dated 01/01/2025, but is not visualized on the current study. IMPRESSION: 1. Mild cardiomegaly and small bilateral pleural effusions, similar to the prior study. 2. Right internal jugular central line in place with associated tenderness. 3. Nasogastric tube in place. [employer] [facility] 1114 REASON: post op hypotension/reassess LVEF ORDERING PHYSICIAN: TERRANCE ALVAREZ PROCEDURE: ECHO CMP - ECHO 2-D COMPLETE APPROVED REPORT EXAM: Two-dimensional and M-mode echocardiogram with Doppler and color Doppler. Study Details: CP , HTN INDICATION ICD: post op hypotension / reassess 2D Dimensions RVDd 4.5 cm LVEF(%) 34.1 (>50%) LVED Vol(simp.) 97.7 mL IVSd 0.9 (0.7-1.1cm) FS(%) 16 % LVES Vol(simp.) 76.8 mL LVDd 4.2 (3.8-5.6cm) LA (2D) 2.7 (1.6-4.0cm) LVEF(%, simp.) 21 % PWd 0.8 (0.7-1.1cm) Ao Root(2D) 2.8 (2.0-3.7cm) LA ESV INDEX (BP) 21.01 mL/m2 IVSs 1.1 cm LVOT diam 1.9 (1.8-2.4cm) LVDs 3.5 (2.5-4.0cm) PWs 1.1 cm Deformation Strain Apical 4 4.3 % Apical 2 1.6 % Apical 3 2.4 % Global Strain 2.4 % M-Mode Dimensions EPSS 1.2 cm LA (MM) 3.6 (1.6-4.0cm) Ao Root(MM) 3.2 (2.0-3.7cm) Aortic Valve AoV Vmax 1.0 m/s Ao Peak GR 4.1 mmHg LVOT Vmax 0.6 m/s AoV VTI 0.2 m Ao Mean GR 2.5 mmHg LVOT VTI 0.10 m MARGARITA (VMAX) 1.62 cm2 MARGARITA (VTI) 1.7 cm2 Mitral Valve MV E Vmax 54.6 cm/s DECEL Time 169 ms MV A Vmax 54.6 cm/s P 1/2 T 49 ms E/A ratio 1.0 MVA (PHT) 4.5 cm2 TDI E/E' Medial 13.7 E/E' Lateral 18.7 Medial E' Peak V 3.99 cm/s Lateral E' Peak V 2.92 cm/s Pulmonary Valve PV Vmax 0.5 m/s PV VTI 0.08 m PV Mean GR 0.7 mmHg PV Peak GR 1.0 mmHg Tricuspid Valve TR Vmax 2.5 m/s RVSP 25.3 mmHg TR Peak GR 25.3 mmHg Left Ventricle The left ventricle is mildly dilated. Hyopkinetic anterior wall and apex. Global strain of -25. There is moderate concentric left ventricular hypertrophy.. LVEF is 25-30%. There is a calcified mass at rhe apex consistent with an old organiz ed thrombus. Indeterminate diastolic dysfunction. Right Ventricle The right ventricle is mildly dilated. Right ventricular systolic function is moderately to severely reduced. Atria The left atrium size is normal. The right atrium size is normal. Aortic Valve The aortic valve is not well visualized. No aortic regurgitation is present. There is mild valvular aortic stenosis. Mitral Valve The mitral valve is mildly thickened. There is no mitral valve regurgitation noted. There is no mitral valve stenosis. Tricuspid Valve Tricuspid valve is not well visualized. trace tricuspid regurgitation. Pulmonic Valve The pulmonary valve is normal in structure and function. There is no pulmonic valvular regurgitation. Great Vessels The aortic root is normal in size. IVC is not well visualized. Pericardium not well visualized Conclusion The left ventricle is mildly dilated. LVEF is 25-30%. Hyopkinetic anterior wall and apex. Global strain of -25. 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 SERVICE 0400 REASON: s/p CABG ORDERING PHYSICIAN: KATHRIN PONCE MD PROCEDURE: CXR1VW - CHEST 1VW EXAM: CR Chest, 1 View. CLINICAL HISTORY: s/p CABG COMPARISON: Study dated 12/31. FINDINGS: There is an endotracheal tube noted with its tip approximately 3.8 cm above the buddy. There is an enteric tube noted with its tip in the stomach. There is a right-sided jugular sheath in the superior vena cava. LUNGS: Again noted are diffuse bilateral airspace opacities, which show an interval decrease when compared with the prior exam. PLEURAL SPACES: Mild left-sided pleural effusion. No evidence of pneumothorax. MEDIASTINUM: Cardiac size and mediastinal contours are within normal limits. BONES: No acute osseous abnormality. IMPRESSION: 1. No acute cardiopulmonary findings. 2. Appropriately positioned endotracheal tube, enteric tube, and right jugular sheath. 3. Improving bilateral airspace opacities. 4. New finding of mild left pleural effusion. /[place] SERVICE 1405 REASON: s/p intubation ORDERING PHYSICIAN: KATHRIN PONCE MD PROCEDURE: CXR1VW - CHEST 1VW EXAM: CR Chest, 2 View. CLINICAL HISTORY: s/p intubation COMPARISON: 12/31/2024 at 3:51 AM FINDINGS: There is an endotracheal tube noted with its tip approximately 4 cm above the buddy. There is an enteric tube noted with its tip in the stomach. There is a right sided jugular sheath in place. LUNGS: Again noted are diffuse bilateral airspace opacities which are worse when compared with the prior exam. PLEURAL SPACES: No pleural effusion or pneumothorax. MEDIASTINUM: The cardiomediastinal silhouette is within normal limits. BONES: No acute osseous abnormality. IMPRESSION: Satisfactory position of the support lines and tubes. Diffuse bilateral airspace opacities which are worse when compared with the prior exam. [facility] SERVICE REASON: EVAL LT LUIS AND DPA FOR PATENCY S/P IABP REMOVAL ORDERING PHYSICIAN: BURKE SULLIVAN MD PROCEDURE: GUIDE IV - US GUIDANCE FOR VASCULAR ACCES US GUIDANCE FOR VASCULAR ACCES HISTORY: EVAL LT LUIS AND DPA FOR PATENCY S/P IABP REMOVAL TECHNIQUE: Real-time arterial doppler ultrasound of the lower extremity was performed. US GUIDANCE FOR VASCULAR ACCES HISTORY: EVAL LT LUIS AND DPA FOR PATENCY S/P IABP REMOVAL TECHNIQUE: Real-time arterial doppler ultrasound of the left lower extremity was performed. To evaluate patency of left anterior tibial and dorsalis pedis artery FINDINGS: The left anterior tibial artery and dorsalis pedis artery has no flow seen IMPRESSION: No fluid identified in the left anterior tibial and dorsalis pedis artery. SERVICE 1342 REASON: abdominal pain ORDERING PHYSICIAN: CHEYENNE HENSON PROCEDURE: ABDOMEN - US ABDOMINAL COMPLETE US ABDOMINAL COMPLETE REASON: 54-year-old male with abdominal pain COMPARISON: None FINDINGS: The visualized portion of the chest demonstrate there is small right-sided pleural effusion. There is grade 1 hepatic steatosis the liver.. The left lobe of the liver is obscured by overlying bowel gas. There are no focal mass lesions. The liver is not enlarged.There is a normal-appearing gallbladder. The gallbladder wall thickness is 0.1 cm. The common bile duct is normal size measuring 0.4 cm. Kidneys appear normal in size and appearance. The right kidney measures 9.8 x 4.3 x 4.9 cm. The left kidney measures 9.8 x 4.7 x 5.1 cm.. There is no evidence of mass, stone or hydronephrosis. Spleen appears normal. The spleen length is 9.7 cm.. Aorta and inferior vena cava appear normal. The pancreas is obscured by overlying bowel gas. IMPRESSION: Small right-sided pleural effusion Otherwise a normal upper abdomen sonogram.. DICTATED BY: FRED NUNES MD SERVICE 1302 REASON: IABP ORDERING PHYSICIAN: KATHRIN PONCE MD PROCEDURE: CXR1VW - CHEST 1VW EXAM: CR Chest, 1 View. CLINICAL HISTORY: IABP COMPARISON: Radiograph dated December 30, 2024 at 1121 FINDINGS: Enteric tube terminates within the stomach. Right IJ central venous catheter tip projects over the SVC. Left chest tube remains in satisfactory position. Relatively unchanged mild multifocal airspace disease, more pronounced at the left lung base. No pleural effusion or pneumothorax. Heart size is stable. Mild central pulmonary vascular congestion. IMPRESSION: 1. Mild multifocal airspace disease, more pronounced at left lung base, with mild central pulmonary vascular congestion. 2. Appropriately positioned lines and tubes, including right IJ central line with tip in SVC. /[place] SERVICE 1117 REASON: IABP POSITION ORDERING PHYSICIAN: KATHRIN PONCE MD PROCEDURE: CXR1VW - CHEST 1VW EXAM: CR Chest, 1 View. CLINICAL HISTORY: IABP POSITION COMPARISON: Radiograph dated December 30, 2024 at 5:03 AM Findings: AP view of the chest is submitted. Right IJ central venous catheter tip projects over the SVC. Enteric tube terminates within the stomach. Left chest tube is unchanged in position. Relatively unchanged mild multifocal airspace disease, predominantly at the left lung base. No pleural effusion or pneumothorax. Heart size is stable. Mild central pulmonary vascular congestion. IMPRESSION: 1. Stable mild multifocal airspace disease, predominantly at the left lung base. 2. Mild central pulmonary vascular congestion. 3. Left chest tube, right IJ central venous catheter, and enteric tube in appropriate positions. /[place] DICTATED BY: NOÉ SERNA Jr., MD DATE: 12/30/24 1328 SERVICE 0808 REASON: Distention ORDERING PHYSICIAN: CHEYENNE HENSON PROCEDURE: ABD 1VW - ABD 1VW EXAM: CR Abdomen, 2 View. CLINICAL HISTORY: Distention COMPARISON: None provided. FINDINGS: BOWEL: The bowel gas pattern is within normal limits. PERITONEUM/SOFT TISSUES: No free air evident. No pathologic appearing calcification. BONES: No aggressive appearing osseous lesion seen. IMPRESSION: The bowel gas pattern is within normal limits. /[place] DICTATED BY: NOÉ SERNA Jr., MD DATE: 12/30/24 0953 SERVICE 0400 REASON: s/p CABG ORDERING PHYSICIAN: KATHRIN PONCE MD PROCEDURE: CXR1VW - CHEST 1VW CHEST 1VW REASON: s/p CABG COMPARISON: Prior chest radiograph from 12/29/2024 is available. FINDINGS: The study demonstrate the cardiac silhouette is within limits of normal with median sternotomy with cardiac revascularization procedure. There is diffuse mild interstitial pulmonary edema which was not seen on the prior radiograph. The support lines including the right internal jugular vascular sheath left-sided chest view are in satisfactory position. The bony thorax demonstrate no gross abnormality. IMPRESSION: 1. Status post median sternotomy with cardiac revascularization procedure 2. Mild interstitial pulmonary edema 3. Support lines are in satisfactory position. DICTATED BY: FRED NUNES MD DATE: 12/30/24 1022 REPORT#: [id number] SERVICE 0703 REASON: ABDOMINAL DISTENTION ORDERING PHYSICIAN: KATHRIN PONCE MD PROCEDURE: ABD 1VW - ABD 1VW ABD 1VW REASON: ABDOMINAL DISTENTION FINDINGS: Single image of the abdomen was obtained. Bowel gas pattern is nonspecific. There is a nasogastric tube with the tip in the antrum of the stomach.. Bones and soft tissues appear unremarkable. There are no abnormal calcifications. There is no evidence of foreign body. Patient is status post median sternotomy. There is a surgical clips in the right lower quadrant. IMPRESSION: 1. Nonspecific gas pattern 2. Status post median sternotomy 3. Nasogastric tube with the tip in the antrum of the stomach. SERVICE 0400 REASON: s/p CABG ORDERING PHYSICIAN: KATHRIN PONCE MD PROCEDURE: CXR1VW - CHEST 1VW CHEST 1VW REASON: s/p CABG COMPARISON: 12/28/2024 is available. FINDINGS: Single view of the chest was obtained. Lungs are clear. Cardiac silhouette is normal size with median sternotomy. There is right-sided internal jugular vascular sheath in place. There is a left-sided chest tube in place. There is no pneumothorax.. There is no pulmonary vascular congestion. Mediastinum and bony thorax appear unremarkable. IMPRESSION: 1. No acute cardiopulmonary process and unchanged from prior study 2. Support lines in satisfactory position 3. Status post median sternotomy. DICTATED BY: FRED NUNES MD DATE: 12/29/24954 SERVICE 99 REASON: s/p CABG ORDERING PHYSICIAN: KATHRIN PONCE MD PROCEDURE: CXR1VW - CHEST 1VW EXAM: CR Chest, 1 View. CLINICAL HISTORY: s/p CABG COMPARISON: Radiograph from December 27, 2024 Findings: AP view of the chest is submitted. Right IJ central venous catheter tip projects over the SVC. Endotracheal tube terminates 1.5 cm above the buddy. Chest tubes overlie the middle mediastinum and left hemithorax. No pneumothorax. Mild bibasilar atelectasis, more pronounced on the left. No pleural effusion. Interval sternotomy. Mild cardiomegaly. Pulmonary vessels are within normal limits. IMPRESSION: 1. No acute cardiopulmonary findings. 2. Appropriately positioned right IJ central venous catheter, endotracheal tube, and chest tubes. 3. Mild bibasilar atelectasis, left greater than right. /[place] SERVICE 1615 REASON: preop CABG ORDERING PHYSICIAN: KATHRIN PONCE MD PROCEDURE: ECHO CMP - ECHO 2-D COMPLETE APPROVED REPORT EXAM: Two-dimensional and M-mode echocardiogram with Doppler and color Doppler. INDICATION ICD: Pre-Op CABG 2D Dimensions RVDd 3.0 cm LVEF(%) 53.8 (>50%) LVED Vol(simp.) 90.5 mL IVSd 0.8 (0.7-1.1cm) FS(%) 28 % LVES Vol(simp.) 43.2 mL LVDd 4.8 (3.8-5.6cm) LA (2D) 3.3 (1.6-4.0cm) LVEF(%, simp.) 52 % PWd 1.1 (0.7-1.1cm) Ao Root(2D) 2.9 (2.0-3.7cm) LA ESV INDEX (BP) 32.15 mL/m2 LVDs 3.5 (2.5-4.0cm) LVOT diam 2.1 (1.8-2.4cm) IVC diam 1.1 cm Deformation Strain Apical 4 -13.3 % Apical 2 -12.6 % Apical 3 -10.5 % Global Strain -12.1 % M-Mode Dimensions EPSS 1.5 cm LA (MM) 3.3 (1.6-4.0cm) Ao Root(MM) 3.0 (2.0-3.7cm) Aortic Valve AoV Vmax 1.4 m/s Ao Peak GR 7.3 mmHg LVOT Vmax 0.8 m/s AoV VTI 0.3 m Ao Mean GR 3.9 mmHg LVOT VTI 0.16 m MARGARITA (VMAX) 1.93 cm2 MARGARITA (VTI) 2.1 cm2 Mitral Valve MV E Vmax 74.7 cm/s DECEL Time 112 ms MV A Vmax 91.5 cm/s P 1/2 T 61 ms E/A ratio 0.8 MVA (PHT) 3.6 cm2 TDI E/E' Medial 15.2 E/E' Lateral 9.3 Medial E' Peak V 4.90 cm/s Lateral E' Peak V 8.01 cm/s Pulmonary Valve PV Vmax 1.0 m/s PV VTI 0.20 m PV Mean GR 2.3 mmHg PV Peak GR 3.8 mmHg Left Ventricle The left ventricle is normal size. Inferobasal hypokinesis. GLS is -12% and moderately to severely reduced with apical sparing. Moderate concentric LVH. LVEF is 50-55%. Stage I diastolic dysfunction. Right Ventricle The right ventricle is normal size. The right ventricular systolic function is normal. Atria The left atrium size is normal. The right atrium size is normal. Aortic Valve The aortic valve is normal in structure. No aortic regurgitation is present. There is no aortic valvular stenosis. Mitral Valve The mitral valve is normal in structure. There is no mitral valve regurgitation noted. There is no mitral valve stenosis. Tricuspid Valve The tricuspid valve is normal in structure. There is no tricuspid valve reg urgitation noted. Pulmonic Valve The pulmonary valve is normal in structure. There is no pulmonic valvular regurgitation. Great Vessels The aortic root is normal in size. The IVC is normal in size and collapses >50% with inspiration. Pericardium There is no pericardial effusion. Conclusion The left ventricle is normal size. Moderate concentric LVH. Inferobasal hypokinesis. GLS is -12% and moderately to severely reduced with apical sparing. LVEF is 50-55%. Stage I diastolic dysfunction. The aortic valve is normal in structure. There is no mitral valve regurgitation noted. The IVC is normal in size and collapses >50% with inspiration. There is no pericardial effusion. DICTATED BY: NARAYAN ALVAREZ MD DATE: 12/27/24 0851 ELECTRONICALLY SIGNED BY: NARAYAN ALVAREZ MD SERVICE 06 REASON: preop CABG ORDERING PHYSICIAN: KATHRIN PONCE MD PROCEDURE: CXR1VW - CHEST 1VW EXAM: CR Chest, single view CLINICAL HISTORY: Preop CABG COMPARISON: Prior chest radiograph dated 24 December 2024. FINDINGS: The lungs show no infiltrate or other acute findings. No pleural effusion or pneumothorax. The cardiomediastinal silhouette is within normal limits. No acute osseous abnormality. IMPRESSION: No acute cardiopulmonary pathology is evident. Compared to the prior study, there is no significant interval change. /[place] DICTATED BY: ONÉ SERNA Jr., MD DATE: 12/28/24 002 [facility] REPORT#: [id number] SERVICE [id number] REASON: preop CABG ORDERING PHYSICIAN: KATHRIN PONCE MD PROCEDURE: CAROTID - US CAROTID DUPLEX EXAMINATION: DUPLEX ULTRASOUND EXAMINATION OF THE BILATERAL CAROTID AND VERTEBRAL ARTERIES. CLINICAL HISTORY: Pre operative CABG. COMPARISON: None provided. TECHNIQUE: Real-time ultrasound scan of the bilateral carotid and vertebral arteries, 2-D grayscale, with color Doppler flow and spectral waveform analysis. FINDINGS: Color and spectral Doppler interrogation of the carotid vessels on the right demonstrate peak systolic velocities as follows: CCA (Proximal and distal): 68 and 65 cm/s respectively. Bulb: 61 cm/s. ECA: 92 cm/s. ICA (Proximal and distal): 74 and 75 cm/s respectively. Vertebral artery demonstrates antegrade flow: 55 cm/s. Right ICA/CCA ratio: 1.1 Peak systolic velocities on the left are as follows: CCA (Proximal and distal): 67 and 76 cm/s respectively. Bulb: 62 cm/s. ECA: 90 cm/s. ICA (Proximal and distal): 81 and 83 cm/s respectively. Vertebral artery demonstrates antegrade flow: 81 cm/s. Left ICA/CCA ratio: 1.0 Both the common carotid arteries and their branches reveal mild intimal thickening. There are calcified plaques in the bilateral carotid bulb without significant stenosis. IMPRESSION: Mild intimal thickening in the bilateral carotid arteries and their branches. Calcified plaques in the bilateral carotid bulb without significant stenosis. There is no significant flow limiting lesions in the remainder of the arteries. /[place] DICTATED BY: NOÉ SERNA Jr., MD DATE: 12/28/242122 SERVICE [id number] REASON: pre procedural ORDERING PHYSICIAN: ANA MARIA CUI COURSE DEVELOPER PROCEDURE: CXR1VW - CHEST 1VW CHEST 1VW REASON: pre procedural COMPARISON: None. FINDINGS: Single view of the chest was obtained. Lungs are clear. There is hyperaeration of lungs with flattening of both hemidiaphragms.. Heart size is normal. There is no pulmonary vascular congestion. Mediastinum and bony thorax appear unremarkable. IMPRESSION: 1. No evidence of airspace consolidation or pulmonary venous congestion 2. 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 Hypertension. Anemia, Iron deficiency Acute Renal Failure New onset atrial fibrillation, not POA PLAN: ADMISSION DATE : 12/23/2024 DISCHARGE DATE : 01/17/2025 DISPOSITION : Home CONDITION : [employer]able [employer] Effectiveness Manager(s) : Nephrology consult , CTS consult , Podiatry consult , Critical care consult [facility], Cardiology consult [facility], Wound care consult , GI consult FOLLOW UP APPOINTMENTS : Follow up with PCP within 2-3 days Follow up with Nephrology consult at [facility] within 1-2 weeks [phone] Follow up with cardiology consult, [facility] within 1-2 weeks [phone] Follow up with Cardiothoracic surgeon Continue wound care as directed Follow up with cardiac cath technologist within 1-2 weeks PROCEDURES : CABG on 12/28/2024, Left LE femoral thrombectomy IMAGING (s) : Chest x-ray, 2D echo, abdominal X ray , arterial ultrasound of LE, Abdominal US, Carotid US MICROBIOLOGY : Negative blood cultures ACTIVITY : ad [facility] HOME MEDICATIONS : Continued Aspirin 81mg NEW MEDICATIONS : Clopidogrel 75 mg, atorvastatin 40 mg, Eliquis 2.5 mg b.i.d., metoprolol 50 mg b.i.d., Lasix 20 mg b.i.d., doxycycline 100 mg b.i.d. for 7 days TEACHING : The patient was instructed to present to the nearest Emergency Department or call 911 should their symptoms return or worsen. Discharge Instructions: Follow up with PCP within 2-3 days Follow up with Nephrology consult at [facility] within 1-2 weeks [phone] Follow up with cardiology consult, [facility] within 1-2 weeks [phone] Follow up with Cardiothoracic surgeon Continue wound care as directed Follow up with cardiac cath technologist within 1-2 weeks Continue taking Eliquis, Aspirin, Clopidogrel, Atorvastatin, Metoprolol medications as directed Coordinate with Nephrology on duration of lasix medication usage Wound and Limb Care Keep the the limb clean and dry Continue wound care as directed Monitor for redness, swelling, warmth, foul odor or new blisters Continue wearing surgical shoes while ambulating Continue Physical therapy Avoid Nephrotoxic drugs like NSAIDS Continue heart healthy diet Monitor for signs of bleeding like black stools, blood in urine ,bruising and other symptoms like fever, chills, SOB, chest pain, palpitations and seek immediate medical attention in such scenario Pt has been Approved 5 arnaldo visits at the wound healing center. Pt to call for follow up appt. P:[phone] F:[phone] Home Medications: Active Scripts Doxycycline Monohydrate (Doxycycline Monohydrate) 100 Mg Capsule, 1 CAP PO BID for 7 Days, #14 CAP 0 Refills Prov:THEODORA RICHARDS MD 01/17/25 Apixaban (Eliquis) 2.5 Mg Tablet, 2.5 MG PO BID for 30 Days, #60 TAB Prov:THEODORA RICHARDS MD 01/17/25 Metoprolol Tartrate (Lopressor 50Mg Tab) 50 Mg Tab, 50 MG PO BID for 30 Days, #60 TAB Prov:JULIANA MORALES MD 01/17/25 Furosemide (Lasix 20Mg Tab) 20 Mg Tablet, 20 MG PO BID@09,17 for 30 Days, #60 TAB Prov:JULIANA MORALES MD 01/17/25 Clopidogrel Bisulfate (Plavix) 75 Mg Tablet, 75 MG PO DAILY for 30 Days, #30 TAB Prov:JULIANA MORALES MD 01/17/25 Atorvastatin Calcium (LIPITOR) 40 Mg Tablet, 40 MG PO HS for 30 Days, #30 TAB Prov:JULIANA MORALES MD 01/17/25 Acetaminophen (Tylenol) 325 Mg Tablet, 650 MG PO Q6H PRN for MILD PAIN (1-3) for 7 Days, #28 TAB Prov:JULIANA MORALES MD 01/17/25 Reported Medications Aspirin (Adult Low Dose Aspirin EC) 81 Mg Tablet., 81 MG PO DAILY, TAB 12/24/24 Time spent arranging discharge: 31-60 minutes ATTESTATION BY PHYSICIAN I have seen and examined the patient. I reviewed the documentation, medical decision making, and treatment plan as noted by the resident above. I agree with the findings and plan of care. Christiano Gibson MD, PRIYANKA MD Jan 17, 2025 16:30
--- NOTE | 2025-01-17 16:30 | NUR ---
BERNARDO ervin Pt was approved for five arnaldo visits [facility] informed nurse, pt, and son.
--- NOTE | 2025-01-17 19:20 | NUR ---
PATIENT REFUSING TO BE DISCHARGED AND SON REFUSING TO TAKE PATIENT HOME. CHARGE NURSE, DIRECTOR, RESIDENT, AND NIGHT NURSE MADE AWARE. RESIDENT WILL CALL NIGHT NURSE ONCE SHE SPEAKS TO HER ATTENDING DR. PORTER.
--- NOTE | 2025-01-17 20:57 | PN ---
[facility] PROGRESS NOTE Date of Service: Jan 17, 2025 Time of Service: 20:57 SUBJECTIVE: This is a 54-year-old male who presented to [facility] with a non-STEMI. He underwent left heart catheterization which showed severe multi-vessel coronary artery disease with mid to apical inferior hypokinesis, LVEF 45-50%. He underwent echocardiogram 12/19/2024 which showed an ejection fraction of 55- 60%, mild LVH, normal-sized left atrium, mild mitral valve regurgitation and mild tricuspid valve regurgitation. He was transferred to [facility] for CABG. 12/25 patient remains admitted to the PCU, case discussed with the RN, no acute events overnight, he denied chest pain, shortness shortness for breath, no nausea, no vomiting, no abdominal discomfort. Cardiology input noted and appreciated, patient to continue aspirin 81 mg p.o. daily and atorvastatin 40 mg p.o. daily. Continue metoprolol tartrate 25 mg p.o. b.i.d.. Pending evaluation by CT surgery for consideration for CABG. Discussed with the patient. 12/26 patient remains admitted to the PCU, case discussed with the RN, no acute events overnight, the time of my visit the patient is comfortably in bed, alert oriented x3, eating breakfast, tolerating well, denies nausea, no vomiting, no abdominal discomfort, he denies chest pain, no shortness a breath. Remains on aspirin 81 mg p.o. daily, atorvastatin and metoprolol 25 mg p.o. b.i.d.. Pending evaluation by CT surgery for consideration of CABG. 12/27 patient is seen and examined at bedside, case discussed with the RN, no acute events overnight, currently the patient NPO, scheduled for CABG today by Cardiothoracic surgeon. We will continue to follow. 12/28 patient is seen and examined at bedside, case discussed with the RN, no acute events overnight, currently the patient NPO, scheduled for CABG today by Cardiothoracic surgeon. We will continue to follow. 12/29 patient is seen and examined at bedside, remains admitted to the ICU, postoperative day 1., status post CABG 12/28/2024, patient on insulin drip, nitroglycerin drip, alert oriented x3 following commands, however was mildly agitated earlier this morning, motion with the RN started on Precedex. Patient with chest tube in place. Further recommendations per Cardiothoracic surgeon. 12/30 patient remains admitted to the ICU, case discussed with the RN, patient remains confused, trying to pull his IV lines, remains on Precedex. Throughout the balloon pump in place, just to be breath, remains on epinephrine, Levophed, Lasix drip, dobutamine drip. Creatinine today at 3.0. Nephrology consultation requested, we will follow input and recommendation. Continue to monitor liver enzymes in a.m., follow ammonia level (at the time of my dictation less than 10). Continue to follow critical care input and recommendation. Prognosis remains guarded. 12/31 54-year-old male who was transferred from [facility] with a non- STEMI. He underwent left heart catheterization which showed severe multi-vessel coronary artery disease with mid to apical inferior hypokinesis, LVEF 45-50%. He underwent echocardiogram 12/19/2024 which showed an ejection fraction of 55- 60%, mild LVH, normal-sized left atrium, mild mitral valve regurgitation and m ild tricuspid valve regurgitation. He was transferred to [facility] for CABG. Cardiothoracic surgeon consultation requested, patient underwent CABG 12/28/2024. Continue to follow Cardiothoracic input and recommendations. Patient has been mildly confused post procedure, started on Precedex. 01/01 54-year-old male who was transferred from [facility] with a non- STEMI. He underwent left heart catheterization which showed severe multi-vessel coronary artery disease with mid to apical inferior hypokinesis, LVEF 45-50%. He underwent echocardiogram 12/19/2024 which showed an ejection fraction of 55- 60%, mild LVH, normal-sized left atrium, mild mitral valve regurgitation and mild tricuspid valve regurgitation. He was transferred to [facility] for CABG. Cardiothoracic surgeon consultation requested, patient underwent CABG 12/28/2024. At the time of my visit resting comfortably in bed, off Precedex, following commands, status post interval removal of intra-aortic balloon pump yesterday, remains on dobutamine and nitroglycerin drip as well as argatroban. Continue to follow critical Care and Cardiothoracic input and recommendations. 01/02/25: Patient was evaluated at the bedside. Today is postop Day 5 and he is recovering well. Patient underwent thrombectomy in the femoral artery of left lower extremity and removal of intra-aortic balloon pump yesterday. Patient has mottled appearance in the left great toe and dorsalis pedis pulsations are present. His chest tube output was 320 mL over the last 24 hours. His stool was positive for occult blood and a GI consult has been placed. Cardiology advised to continue the current treatment. Patient is weaned off Levophed and is currently on Lasix, dobutamine, nitroglycerin, and argatroban drips. A swallow test will be performed today to evaluate the need for removing NG tube. 01/03/25: Patient was evaluated at the bedside, this is postop day 6 and is recovering well. Patient has mottled appearance in the left great toe extending into all the digits. Dorsalis pedis pulsations were diminished with palpation but detected on Doppler. His chest tube output was 310 mL today. A GI consult was placed for occult blood however no intervention was recommended and advised to continue Protonix 40 mg. Nephrology recommended no renal replacement as alicia ent has good urine output,3 L today and is responding well to diuresis. Patient is continued on Lasix, dobutamine, nitroglycerin, and argatroban drips. NG tube was removed and patient was started on pureed heart healthy diet as tolerated. 01/04/2025: Patient was evaluated at the bedside, this is postop day 7. Patient had an episode of AFib with rapid ventricular response this morning and was cardioverted with amiodarone and continued on drip. Patient's left leg discoloration has improved, but still has diminished pulses only detected by Doppler. His chest tube output is 140 mL. Patient's ERICK has been worsening with creatinine 7.8 today however he has adequate urine output, 3.5 L today. Cardiology recommended to reduce Lasix drip to 2.5 and nephrology advised that patient's creatinine is stabilizing and renal function will improve in the next few days. Patient is still continuing on argatroban, nitro, and dobutamine drips. Otherwise patient has been recovering well tolerating pureed food and only complains of occasional throat pain due to cough. He was encouraged to cough to clear the chest secretions and use p.r.n. benzocaine spray for relief. His chest x-ray shows clearing pleural effusion and pulmonary edema. 01/05/2025: Patient was evaluated at the bedside and this is postop day. Patient has been in sinus rhythm since the AFib episode this morning. IV amiodarone was stopped and transitioned to p.o. 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 Director Translation recommended applying nitroglycerin paste and and covered it in dressing. Patient's ERICK continues to worsen, creatinine 8.2 today. However he is maintaining a good urine output, 2500 today. He has been weaning of Lasix drip. Patient has been encouraged to use incentive spirometry and cough as tolerated to clear the chest secretions. Chest x-ray showed no evidence of pulmonary venous congestion today. 01/06/2025: Patient was evaluated at the bedside, he was sitting comfortably in his chair. Patient has been in sinus rhythm. Patient continues on argatroban, Lasix, and dobutamine drips. Patient's ERICK seemed to be stabilizing his creati nine is 8.3 compared to 8.2 yesterday. Patient is maintaining good urine output, 2L in the last 24 hours. Patient's left foot was covered in dressing. Dr. Persaud evaluated the patient today and recommended walking boot with dressing if he is cleared by Cardiology for ambulation. His demarcating necrosis of the distal aspects of digits 1, 2, 3, and 4 on the left side seemed to be improving. Dr. Persaud recommended to continue nitroglycerin paste. Patient encouraged to use incentive spirometry and cough and was asked to use benzocaine for relief from throat pain. 01/07/2025 - patient seen at bedside in room 215 , patient is alert awake and oriented. Patient continues to be on argatroban, Lasix drips, his acute kidney injury possibly secondary to ATN secondary to hypotensive episode seems resolving while maintaining good urine output. Patient still complains of cough, pain in the left lower extremity. Patient's phosphorus trended down to 6.8 And anion gap closed down to 12 today. Patient currently hemodynamically stable and we will continue to monitor closely. 01/08/2025 Patient is seen and examined at the bedside. Awake alert and oriented and sitting comfortably in the chair. Argatroban drip is discontinued and patient is started on Heparin for DVT prophylaxis and Plavix 75 mg [for NSTEMI] by cardiology. Vitals blood pressure ranging in 110/80s, pulse rate 80s, respiratory rate in 20s to 30s, SpO2 greater than 95% on room air. Patient had an episode of AFib today. Currently in sinus rhythm. Chest tube and arterial line are discontinued as per CT is recommendations. Urine output 1.8 L. He still complains of productive cough, poor appetite. Labs hemoglobin stable at 10.1, potassium low at 3.1, BUN 93, creatinine improved from 7.9-7.5. Chest x-ray revealed no evidence of airspace consolidation or pulmonary venous congestion. 01/09/25: Patient was seen and evaluated at the bedside. He was awake, alert, and oriented to time place and person. Patient had been in sinus rhythm and had no acute events overnight. His vitals have been stable and only complains of throat pain. His creatinine is improving, 7.4 from 7.5 yesterday. He is maintaining good urine output of 2 L[place] [id number] today and is receiving Zosyn. His chest x-ray showed trace left pleural effusion. Still has productive cough and a poor appetite. Speech evaluation was placed for tomorrow for suspected aspiration. Testing for influenza and COVID-19 were placed. 01/10/25 patient was seen patient was sitting in chair receiving his neb treatment. Patient denied chest pain or shortness for breath. 01/11/25: Patient was seen and evaluated at the bedside in room 205. Patient was downgraded to medical floor and is recovering well from his surgery. Improving in his creatinine is at 6.6 from 6.9 yesterday. Is maintaining a good urine output of 1975 mL yesterday. His demarcating necrosis of the left foot is improving with gradually receding necrotic tissue. His bilateral pedal pulses are present with Doppler. We will have speech therapist evaluate with barium swallow for consideration of advancing diet from pureed food. 01/12/25: Patient was seen and evaluated at the bedside in room 205. Patient was sitting comfortably in the chair. Patient had no acute events overnight. Patient reports he is feeling much better and denies chest pain, shortness of breath, dizziness. Patient blood sugars were high today at 295. Patient was noted to be drinking ensure protein drinks containing added sugars with his breakfast. He has been also taking 7 doses of Decadron 4mg so far. Patient was advised not to drink the ensure drinks for now and we will taper the Decadron in 2 days. His lactic acid is elevated at 3.6 and has an anion gap metabolic acidosis. We will order a UA with microscopy and culture. Case management is working on the placement to a SNF and will follow their recommendations. 01/13/2025: Patient was evaluated at the bedside in room 205. Patient was lying comfortably in his bed with head end elevated. He had no acute events overnight. He is currently being tapered off dexamethasone. Patient denies chest pain, shortness of breath, dizziness and only has a mild sore throat. Blood glucose was controlled and 160s this morning. Patient was asked to drink ensure and instead we will be given glucerna. His demarcating necrosis of the left foot is improving and only has a couple of fluid-filled blisters on the toes. Patient's lactic acid today is a 3.7. Patient has normal white blood cell count, normal procalcitonin and has no fever. Blood and urine cultures results are still pending. Patient is pending rehab placement. 01/14/2025: Patient was evaluated at the bedside in room 205. Patient was sitting comfortably in his chair. Had no acute events overnight. Patient blood glucose is well controlled and today it is 182. His ERICK is improving from 5.2- 4.5 today and is maintaining a good urine output of 700 mL. Patient's lactic acid is elevated at 4, CRP 20 and he had up trending white cell count which is 11.5 today. Patient is afebrile and denies any chills, night sweats, pain at the IV site, nausea, vomiting, and diarrhea. Patient was started on Rocephin and discontinued his PICC line. A new blood culture was ordered today. Patient is still recovering from demarcating necrosis of the left foot after undergoing femoral thrombectomy and still complains of burning pulsatile pain in the left foot. We are considering his elevated lactic acid is due to regional hypoperfusion causing type B lactic acidosis however we will continue to evaluate for other sources of infection. In the evening patient also complained of a lesion on the bottom of his right side scrotum with a minor bleeding. Patient reports that he had increased itching sensation in the area and has been using nystatin powder. Patient is pending placement for rehab at [facility]. 01/15/25 Patient is seen and examined at the bedside. Vitals blood pressure ranging in 140/90s, pulse rate 80s, respiratory rate, SpO2 greater than 95% on room air. Urine output 1.5 L. No acute events last night. He complains of pulsating pain in the left limb. He is able to tolerate oral feeds without any nausea/vomiting. Labs WBC increased from 11.5-13.3, hemoglobin stable around 12.2, platelets 632, sodium 134, chloride 96, potassium low at 3.2, BUN 116, creatinine improved from 5.2- 4.4, blood glucose 112. Blood cultures are negative. Urinalysis negative for leukocyte esterase, nitrates. Pending rehab placement. 01/16/2025: Patient is seen and examined at bedside in room 205. Case discusse d with RN, no overnight events. Blood pressure 131/92, pulse 74, respiratory rate 18, saturating 100% on room air. Patient is afebrile and denies any shortness of breath, chest pain, palpitations except for occasional cough with sputum. His lab shows sodium 133, potassium 3.3, chloride 94, BUN 106, creatinine 4.1, lactic acid 2.8, urine output 550 mL. Patient is recovering from demarcating necrosis of the left foot after undergoing femoral thrombectomy and he was able to walk around in the room. We will follow-up closely with Cardiothoracic surgeon regarding clearance for placement to SNF. Patient is cleared by Podiatry and Nephrology for placement to SNF, case management is on board. REVIEW OF SYSTEMS CONSTITUTIONAL: Denies fevers, chills, or night sweats. No unintentional weight loss reported., Throat irritation NEUROLOGICAL: Denies headache, amaurosis fugax, motor weakness, sensory deficit, vertigo/spinning sensation, gait abnormalities, or tremors. CARDIOVASCULAR: Denies any exertional angina, dyspnea on exertion, orthopnea, paroxysmal nocturnal dyspnea, palpitations, life-threatening arrhythmias, claudication. PULMONARY: Denies any shortness of breath, hemoptysis, pleuritic chest pain. Patient has cough with clear sputum, improving GASTROINTESTINAL: Denies any type of dysphagia to either liquids or solids. Denies nausea, vomiting, pyrosis, early satiety, abdominal pain, diarrhea, constipation, or changes in stool consistency or caliber. GENITOURINARY: Denies frequency, urgency, nocturia, hematuria or incontinence. Andres removed. Complains of itching on the inner thighs and under scrotum. PHYSICAL EXAM GENERAL APPEARANCE: Patient is alert, oriented, and comfortable lying down and sitting. NECK: Supple. No JVD. CHEST: Normal chest expansion. LUNGS: Absence of any rales, rhonchi or any wheezing. Chest tube in place. CARDIOVASCULAR: Regular. S1 and S2 normal. No appreciable rubs, murmurs or gallops. ABDOMEN: Soft, nontender, and nondistended. There is no rebound, voluntary guarding, or rigidity. : Deferred. No Andres. Mild erythematous lesion present under the scrotum on right side EXTREMITIES: LLE pulses present per Doppler, left toes and foot covered in dressing. Vital Signs (last 8hr) Date Time Temp Pulse Resp B/P (MAP) Pulse Ox O2 Delivery O2 Flow Rate FiO2 01/17/25 20:35 76 18 01/17/25 20:32 77 18 N/A Room Air 21 01/17/25 20:00 98.1 72 18 120/67 93 Room Air 01/17/25 16:00 97.5 82 20 113/69 99 Room Air LABS: Laboratory: Test 01/17/25 15:46 01/17/25 04:40 Range/Units Whole Blood Glucose 162 H 70-110 MG/DL Bedside Glucose Comment Notified Nurse White Blood Count 9.0 4.8-10.8 K/uL Red Blood Count 4.64 4.50-6.20 MIL/uL Hemoglobin 12.2 L 14.0-18.0 g/dL Hematocrit 38.2 L 42-54 % Mean Corpuscular Volume 82.3 79-99 fL Mean Corpuscular Hemoglobin 26.3 L 27.0-33.0 pg Mean Corpuscular Hemoglobin Concent 31.9 L 32.0-36.0 g/dL Red Cell Distribution Width 25.9 H 11.0-15.5 % Platelet Count 569 H 130-400 K/uL Mean Platelet Volume 11.4 H 7.5-10.5 fL Immature Granulocyte % (Auto) 1.8 H 0-1 % Neutrophils (%) (Auto) 74.5 40.0-77.0 % Lymphocytes (%) (Auto) 13.1 L 21.0-51.0 % Monocytes (%) (Auto) 8.6 3.0-13.0 % Eosinophils (%) (Auto) 1.9 0.0-8.0 % Basophils (%) (Auto) 0.1 0.0-5.0 % Neutrophils # (Auto) 6.7 1.8-7.7 K/uL Lymphocytes # (Auto) 1.2 1.0-4.8 K/uL Monocytes # (Auto) 0.8 0.1-1.0 K/uL Eosinophils # (Auto) 0.17 0.00-0.70 K/uL Basophils # (Auto) 0.01 0.00-0.20 K/uL Absolute Immature Granulocyte (auto 0.16 0-1 K/uL Nucleated Red Blood Cells 0.0 0.0-0.19 % Sodium Level 132 L 136-145 mmol/L Potassium Level 3.1 L 3.5-5.1 mmol/L Chloride Level 97 L 101-111 mmol/L Carbon Dioxide Level 23 21-32 mmol/L Blood Urea Nitrogen 93 *H 7-18 mg/dL Creatinine 3.8 H 0.5-1.3 mg/dL Glomerular Filtration Rate Calc 18 >90 mL/min Random Glucose 103 70-105 mg/dL Lactic Acid Level 1.8 0.8-2.5 mmol/L Total Calcium 8.1 L 8.5-10.1 mg/dL Current Medications Medications (Trade) Dose Ordered Sig/Mila Route PRN Reason Start Time Stop Time Status Last Admin Dose Admin Acetaminophen (TYLenol 325MG TAB) 650 mg Q4H PRN PO Temp >38.3C(AFTER EXTUBATION) 12/28/24 14:00 01/27/25 13:59 Acetaminophen (TYLenol 325MG TAB) 650 mg Q6H PRN PO MILD PAIN (1-3) 12/24/24 01:30 12/28/24 13:57 DC 12/27/24 23:45 650 MG Acetaminophen (TYLenol 325MG TAB) 650 mg Q6H PRN PO TEMPERATURE GREATER THAN 101.5 12/24/24 03:00 12/28/24 14:10 DC Acetaminophen (TYLenol 325MG TAB) 650 mg Q6H PRN PO MILD PAIN (1-3) 12/28/24 14:00 01/27/25 13:59 01/05/25 20:03 650 MG Acetaminophen (TYLenol 650MG SUPPOSITORY) 650 mg Q4H PRN RC Temp >38.3C WHILE INTUBATED 12/28/24 14:00 01/07/25 19:35 DC Acetaminophen (acetaMINOPHEN) 1,000 mg Q6H6 IV 12/28/24 18:00 12/29/24 17:59 DC 12/29/24 17:27 1,000 MG Acetaminophen (acetaMINOPHEN) 1,000 mg Q6H6 IVPB 12/30/24 00:00 12/31/24 20:14 DC 12/30/24 18:16 1,000 MG Albumin Human 250 ml @ 0 mls/hr AD PRN IV IF HEMODYNAMICALLY UNSTABLE 12/28/24 14:00 12/29/24 09:28 DC 12/29/24 09:28 250 MLS/HR Albuterol (DUOneb) 1 UDVIAL [id number] IH 01/01/25 18:00 01/01/25 15:25 DC Albuterol Sulfate (Proventil 0.083% 2.5mg/3ml) 2.5 mg ONCE STAT IH 12/30/24 10:22 12/30/24 10:32 DC 12/30/24 10:43 2.5 MG Aminocaproic Acid 70704 mg/Sodium Chloride 310 ml @ 25 mls/hr AD IV 12/28/24 14:00 12/28/24 14:14 DC Aminocaproic Acid 73485 mg/Sodium Chloride 480 ml @ 0 mls/hr AD PRN IV BLEEDING CONTROL 12/27/24 11:00 01/07/25 19:35 DC Amiodarone HCl (pacERONE 200MG) 200 mg DAILY PO 01/05/25 09:00 02/04/25 08:59 01/17/25 10:24 200 MG Amiodarone HCl 150 mg/Dextrose 103 ml @ 618 mls/hr ONCE IV 01/04/25 06:30 01/04/25 06:21 DC Amiodarone HCl 360 mg/Dextrose 207.2 ml @ 33.3 mls/hr AD IV 01/04/25 06:30 01/04/25 06:21 DC Amiodarone HCl 540 mg/Dextrose 310.8 ml @ 16.7 mls/hr [id number] IV 01/04/25 06:30 01/09/25 09:26 DC 01/04/25 13:01 16.7 MLS/HR Apixaban (EliquIS 2.5 mg) 2.5 mg BID PO 01/13/25 09:00 02/12/25 08:59 01/17/25 10:24 2.5 MG Apixaban (EliquIS) 5 mg HS PO 01/07/25 21:00 01/07/25 19:35 DC Argatroban 250 mg/ Sodium Chloride 250 ml @ 0 mls/hr PROTOCOL IV 12/31/24 16:30 01/07/25 19:30 DC 01/07/25 16:32 4.17 MLS/HR Aspirin (Aspirin 81mg Ec Tab) 81 mg DAILY PO 12/24/24 09:00 01/23/25 08:59 01/17/25 10:24 81 MG Atorvastatin Calcium (LIPItor 40MG) 40 mg HS PO 12/24/24 21:00 01/01/25 11:16 DC 12/31/24 20:44 40 MG Atorvastatin Calcium (LIPItor 40MG) 40 mg HS PO 01/07/25 21:00 02/06/25 20:59 01/16/25 21:05 40 MG Benzocaine (Cepacol Sore Throat Lozenge) 1 each Q4H PRN MM SORE THROAT 01/03/25 13:30 02/02/25 13:29 01/06/25 11:16 1 EACH Bisacodyl (DulcoLAX) 10 mg DAILY PRN RC CONSTIPATION - MOM INEFFECTIVE 12/29/24 14:00 01/28/25 13:59 12/30/24 11:05 10 MG Calcium Gluconate 1 gm/Sodium Chloride 60 ml @ 200 mls/hr AD PRN IV HYPOCALCEMIA 12/28/24 14:00 01/27/25 13:59 01/01/25 01:52 200 MLS/HR Cefazolin Sodium (ANCEF 1 gm vial) 2 gm ONCALL IVP 12/26/24 16:30 12/26/24 16:28 DC Cefazolin Sodium (Ancef) 2 gm ONCALL PRN IVP SURGERY 12/26/24 16:30 12/28/24 13:57 DC Cefazolin Sodium (Ancef) 2 gm Q8H IVPB 12/28/24 19:00 12/29/24 11:01 DC 12/29/24 11:04 2 GM Ceftriaxone Sodium (Rocephin 2gm Inj) 2 gm Q24H IVPB 01/14/25 13:30 01/17/25 20:19 DC 01/16/25 13:50 2 GM Ceftriaxone Sodium (Rocephin 2gm Inj) 2 gm Q24H IVPB 01/17/25 21:00 01/27/25 20:59 Clopidogrel Bisulfate (plaVIX 75MG) 75 mg DAILY PO 01/08/25 09:00 02/07/25 08:59 01/17/25 10:24 75 MG Dexamethasone (DeCADron 4 mg TAB) 4 mg DAILY PO 01/13/25 09:00 01/12/25 17:40 DC Dexamethasone (DeCADron 4 mg TAB) 6 mg DAILY PO 01/09/25 09:00 01/09/25 08:06 DC Dexamethasone (DeCADron 4 mg TAB) 10 mg BID PO 01/09/25 09:00 01/12/25 13:07 DC 01/12/25 09:24 10 MG Dexamethasone (DeCADron 4 mg TAB) 10 mg DAILY PO 01/13/25 09:00 01/15/25 08:59 DC 01/14/25 08:32 10 MG Dexmedetomidine/ Sodium Chloride (PRECEdex 400MCG/ 100ML-NS) 400 mcg PROTOCOL IV 12/28/24 14:00 12/29/24 13:59 DC 12/29/24 12:16 400 MCG Dexmedetomidine/ Sodium Chloride (PRECEdex 400MCG/ 100ML-NS) 400 mcg PROTOCOL IV 12/29/24 18:00 01/28/25 17:59 12/31/24 06:05 400 MCG Dextrose (D50w) 50 ml AD PRN IV HYPOGLYCEMIA PROTOCOL 12/28/24 14:00 01/27/25 13:59 Dextrose (D50w) 50 ml ONCE STAT IV 12/30/24 11:36 12/30/24 11:39 DC 12/30/24 11:45 50 ML Dextrose/Sodium Chloride 1,000 ml @ 50 mls/hr Q20H IV 12/30/24 11:30 01/01/25 16:17 DC 01/01/25 02:09 50 MLS/HR Dobutamine HCl/ Dextrose 250 ml @ 0 mls/hr PROTOCOL IV 12/29/24 14:00 01/08/25 15:43 DC 01/05/25 08:48 4.1 MLS/HR Docusate Sodium (COLace 100MG CAP) 100 mg BID PO 12/28/24 21:00 12/29/24 08:01 DC 12/28/24 20:53 100 MG Docusate Sodium (COLace LIQUID 100MG/10ML) 100 mg BID PO 12/29/24 08:00 01/28/25 07:59 01/17/25 10:24 100 MG Enoxaparin Sodium (Lovenox) 30 mg DAILY SQ 12/31/24 09:00 12/31/24 16:12 DC Enoxaparin Sodium (Lovenox) 30 mg DAILY SQ 01/08/25 09:00 01/07/25 20:03 DC Epinephrine HCl 10 mg/Sodium Chloride 250 ml @ 0 mls/hr AD PRN IV TITRATE 12/27/24 11:00 01/26/25 10:59 12/30/24 04:29 0 MLS/HR Epinephrine HCl 10 mg/Sodium Chloride 250 ml @ 0 mls/hr AD PRN IV POST-OP CARDIOVASCULAR ORDERS 12/28/24 14:00 12/28/24 14:14 DC Famotidine (Pepcid 20mg Vial) 20 mg BID IV 12/28/24 21:00 12/31/24 20:20 DC 12/31/24 08:51 20 MG Famotidine (Pepcid 20mg Vial) 20 mg Q48H IV 01/02/25 09:00 01/02/25 04:51 DC Famotidine (Pepcid 20mg Tab) 20 mg DAILY PO 12/24/24 09:00 12/28/24 13:54 DC 12/26/24 10:19 20 MG Furosemide (LASix 20MG TAB) 20 mg BID@09,17 PO 01/17/25 17:00 01/17/25 20:21 DC Furosemide (LASix 20MG TAB) 20 mg BID@09,17 PO 01/17/25 21:00 02/16/25 20:59 Furosemide (LASix 20MG TAB) 20 mg Q12H PO 12/30/24 09:00 12/30/24 08:34 DC Furosemide (LASix 20MG VIAL) 20 mg Q12H IV 12/29/24 09:00 12/30/24 08:34 DC 12/29/24 09:20 20 MG Furosemide (LASix 40MG TAB) 40 mg BID@09,17 PO 01/10/25 17:00 01/17/25 11:28 DC 01/17/25 10:24 40 MG Furosemide (LASix 40MG VIAL) 40 mg Q12H IV 01/08/25 20:00 01/10/25 09:57 DC 01/09/25 21:05 40 MG Furosemide 100 mg/ Sodium Chloride 100 ml @ 0 mls/hr PROTOCOL IV 12/29/24 14:30 01/08/25 13:45 DC 01/07/25 08:41 0 MLS/HR Glucagon (Glucagon 1mg Kit) 1 mg AD PRN IM HYPOGLYCEMIA PROTOCOL 12/28/24 14:00 01/27/25 13:59 Guaifenesin (MUCinex 600 MG TABLET.ER) 600 mg BID PRN PO COUGH 01/08/25 09:30 02/07/25 09:29 Guaifenesin/ Dextromethorphan (RobiTUSSin DM 200/20MG 10ML) 10 ml Q4H PRN PO COUGH 01/03/25 16:30 01/08/25 09:29 DC 01/07/25 08:25 10 ML Heparin Sodium (Porcine) (HEParin 5,000 UNIT VIAL) *calculation based on ACTUAL B... AD PRN IV HEPARIN PROTOCOL 12/24/24 02:30 12/28/24 13:54 DC 12/24/24 17:32 5,000 UNIT Heparin Sodium (Porcine) (HEParin 5,000 UNIT VIAL) 5,000 unit BID SQ 01/08/25 09:00 01/13/25 07:22 DC 01/12/25 21:40 5,000 UNIT Heparin Sodium/ Dextrose 250 ml @ 0 mls/hr Q6H IV 12/24/24 02:30 12/28/24 13:54 DC 12/27/24 17:04 11.3 MLS/HR Hydralazine HCl (APRESOLine 20MG INJ) 10 mg Q6H PRN IV For:SBP above 160;DBP above 90 12/24/24 03:00 12/28/24 13:54 DC Insulin Human Regular (humuLIN R 100 UNIT/ML 3ML) 10 unit ONCE STAT IV 12/30/24 11:42 12/30/24 11:45 DC 12/30/24 12:01 10 UNIT Insulin Human Regular (humuLIN R 100 UNIT/ML 3ML) 10 unit ONCE STAT SQ 12/30/24 11:36 12/30/24 11:43 DC Insulin Human Regular 100 unit/ Sodium Chloride 100 ml @ 0 mls/hr AD IV 12/28/24 14:00 12/29/24 17:55 DC 12/28/24 17:09 5 MLS/HR Ipratropium [place] (AtrovENT UD) 0.5 mg [id number] IH 12/30/24 12:00 01/29/25 11:59 01/17/25 20:31 0.5 MG Lactulose (Constulose 20gm/ 30ml Udcup) 20 gm BID PRN PO CONSTIPATION 12/24/24 03:00 12/28/24 13:54 DC 12/26/24 21:30 20 GM Lactulose (Constulose 20gm/ 30ml Udcup) 20 gm BID PRN PO CONSTIPATION 12/28/24 14:00 01/27/25 13:59 12/30/24 07:50 20 GM Lidocaine HCl/ Dextrose 250 ml @ 0 mls/hr AD PRN IV TITRATE 12/28/24 22:30 12/29/24 16:00 DC 12/29/24 06:53 15 MLS/HR Magnesium Hydroxide (Milk Of Magnesium 30ml) 30 ml DAILY PRN PO CONSTIPATION 12/28/24 14:00 01/27/25 13:59 12/30/24 10:18 30 ML Magnesium Sulfate 50 ml @ 12.5 mls/hr AD PRN IV MAG LEVEL LESS THAN 2.0 12/28/24 14:00 01/12/25 07:16 DC 12/28/24 18:42 12.5 MLS/HR Magnesium Sulfate 50 ml @ 0 mls/hr PROTOCOL PRN IV MAGNESIUM PROTOCOL 12/26/24 15:00 12/28/24 14:10 DC Magnesium Sulfate 50 ml @ 0 mls/hr PROTOCOL PRN IV MAGNESIUM PROTOCOL 01/12/25 07:30 02/11/25 07:29 Metolazone (zarOXOlyn) 5 mg ONCE PO 12/31/24 12:00 12/31/24 20:18 DC 12/31/24 12:01 5 MG Metolazone (zarOXOlyn) 5 mg ONCE PO 01/01/25 16:30 01/02/25 16:29 DC 01/01/25 16:53 5 MG Metoprolol Tartrate (loprESSOR) 12.5 mg BID PO 12/30/24 09:00 01/04/25 08:51 DC 01/03/25 20:09 12.5 MG Metoprolol Tartrate (loprESSOR) 25 mg BID PO 12/25/24 21:00 12/28/24 13:54 DC 12/28/24 09:28 25 MG Metoprolol Tartrate (loprESSOR) 25 mg TID PO 01/04/25 09:00 01/06/25 13:08 DC 01/06/25 09:27 25 MG Metoprolol Tartrate (loprESSOR) 50 mg BID PO 01/06/25 21:00 02/05/25 20:59 01/17/25 10:24 50 MG Morphine Sulfate (morPHINE 2MG SYG) 0.5 mg Q2H PRN IV MODERATE PAIN (4-6) 12/28/24 14:00 12/29/24 13:59 DC Morphine Sulfate (morPHINE 2MG SYG) 1 mg Q2H PRN IV SEVERE PAIN (7-10) 12/28/24 14:00 12/29/24 13:59 DC 12/28/24 17:05 1 MG Morphine Sulfate (morPHINE 2MG SYG) 2 mg Q4H PRN IVP SEVERE PAIN (7-10) 12/24/24 03:00 12/28/24 13:54 DC 12/26/24 02:43 2 MG Nitroglycerin (Nitroglycerin 1gm Oint) 0.5 inch Q8H5 TD 12/24/24 01:30 12/28/24 13:54 DC 12/27/24 12:57 0.5 INCH Nitroglycerin (Nitroglycerin 1gm Oint) 1 inch Q8H TD 01/04/25 15:00 02/03/25 14:59 01/17/25 06:32 1 INCH Nitroglycerin/ Dextrose 0 ml @ 0 mls/hr AD IV 12/28/24 14:00 12/31/24 14:00 DC Nitroglycerin/ Dextrose 0 ml @ 0 mls/hr AD PRN IV TITRATE 01/01/25 06:30 01/31/25 06:29 01/07/25 01:12 0 MLS/HR Norepinephrine Bitartrate 250 ml @ 0 mls/hr AD PRN IV TITRATE 12/27/24 11:00 01/26/25 10:59 01/04/25 06:14 0 MLS/HR Norepinephrine Bitartrate 8 mg/ Dextrose 250 ml @ 0 mls/hr AD PRN IV POST-OP CARDIOVASCULAR ORDERS 12/28/24 14:00 12/28/24 14:14 DC Nystatin (NYSTatin 277993 UNIT/ML 5ML UDCUP) 10 ml TID PO 01/07/25 21:00 02/06/25 20:59 01/17/25 10:25 10 ML Nystatin (NystOP 15 GM POWDER) APPLY TO PERINEAL AREA... BID TP 01/08/25 21:00 02/07/25 20:59 01/17/25 09:15 1 APPL Ondansetron HCl (zoFRAN 4MG INJ) 4 mg Q6H PRN IV NAUSEA/VOMITING 12/24/24 03:00 12/28/24 13:54 DC Ondansetron HCl (zoFRAN 4MG INJ) 4 mg Q6H PRN IV NAUSEA/VOMITING 12/28/24 14:00 01/27/25 13:59 12/30/24 11:01 4 MG Pantoprazole Sodium (PROTonix 40MG INJ) 40 mg BID IVP 01/05/25 09:00 02/04/25 08:59 01/17/25 10:23 40 MG Pantoprazole Sodium (PROTonix 40MG INJ) 40 mg Q12H IVP 01/02/25 05:00 01/05/25 04:04 DC 01/04/25 16:00 40 MG Phenol (Sore Throat [place]) 1 SPRAY Q4H PRN PO SORE THROAT 01/06/25 10:30 01/09/25 08:15 DC 01/06/25 16:37 1 SPRY Piperacillin Sod/ Tazobactam Sod (Zosyn 3.375gm+NS 50ml) 3.375 gm Q12H IV 12/30/24 15:30 01/05/25 04:05 DC 01/04/25 14:38 3.375 GM Piperacillin Sod/ Tazobactam Sod (Zosyn 3.375gm+NS 50ml) 3.375 gm Q12H IV 01/05/25 09:00 01/09/25 08:59 DC 01/08/25 20:35 3.375 GM Potassium Phosphate 250 ml @ 42 mls/hr AD PRN IV LOW PHOS LEVEL 12/28/24 14:00 01/27/25 13:59 12/29/24 06:12 42 MLS/HR Potassium Chloride 100 ml @ 100 mls/hr AD PRN IV POTASSIUM PROTOCOL 12/26/24 15:00 12/28/24 13:54 DC Potassium Chloride 100 ml @ 100 mls/hr AD PRN IV HYPOKALEMIA 12/28/24 14:00 01/12/25 07:19 DC 01/06/25 20:02 100 MLS/HR Potassium Chloride 100 ml @ 100 mls/hr AD PRN IV POTASSIUM PROTOCOL 01/08/25 08:30 02/07/25 08:29 Potassium Chloride 100 ml @ 100 mls/hr AD PRN IV POTASSIUM PROTOCOL 01/12/25 07:30 02/11/25 07:29 Potassium Chloride (K-Dur/Klor-Con 20meq) 20 meq AD PRN PO POTASSIUM PROTOCOL 12/26/24 15:00 12/28/24 13:54 DC 12/26/24 18:27 20 MEQ Potassium Chloride (K-Dur/Klor-Con 20meq) 20 meq AD PRN PO POTASSIUM PROTOCOL 01/12/25 07:30 02/11/25 07:29 01/17/25 06:32 20 MEQ Potassium Chloride (KCl 10% Elixir 20meq/15ml) 20 meq AD PRN PO POTASSIUM PROTOCOL 12/26/24 15:00 12/28/24 13:54 DC Potassium Chloride (KCl 10% Elixir 20meq/15ml) 20 meq AD PRN PO POTASSIUM PROTOCOL 01/12/25 07:30 02/11/25 07:29 01/13/25 06:24 20 MEQ Propofol 100 ml @ 0 mls/hr AD PRN IV SEDATION 12/28/24 14:00 01/01/25 13:59 DC Sodium Polystyrene Sulfonate (kayEXALate 15 GM/60 ML) 30 gm ONCE STAT PO 12/30/24 11:36 12/30/24 11:39 DC 12/30/24 11:45 30 GM Sodium Bicarbonate (Sodium Bicarb 50meq 50ml Vial) 50 meq AD PRN IV OTHER[SEE DOSING INSTRUCTIONS] 12/28/24 14:00 12/31/24 14:00 DC 12/30/24 12:45 100 MEQ Sodium Chloride 500 ml @ 0 mls/hr AD IV 12/28/24 14:00 01/27/25 13:59 Sodium Chloride 1,000 ml @ 10 mls/hr ONCE IV 12/28/24 14:00 12/29/24 13:59 DC 12/28/24 17:06 10 MLS/HR Sodium Chloride (NS Flush 10ml) 10 ml Q8H PRN IVP IV LINE FLUSH 12/28/24 14:00 01/27/25 13:59 Sodium Chloride (Sodium Chloride 3% Inh) 4 ML [id number] IH 01/04/25 12:00 02/03/25 11:59 01/17/25 20:31 4 ML Tramadol HCl (UltRAM) 25 mg Q6H PRN PO MODERATE PAIN (4-6) 12/28/24 14:00 12/29/24 13:56 DC 12/29/24 11:05 25 MG Tramadol HCl (UltRAM) 50 mg Q6H PRN PO SEVERE PAIN (7-10) 12/28/24 14:00 12/29/24 13:56 DC Vasopressin 20 units/Sodium Chloride 100 ml @ 0 mls/hr PROTOCOL IV 12/30/24 15:30 01/29/25 15:29 12/31/24 10:40 6 MLS/HR Wound Care/ Dressing Products (Venelex Ointment) apply to buttocks and scrotum BID TP 01/11/25 21:00 02/10/25 20:59 01/17/25 09:15 1 GM DIAGNOSTICS / RADIOLOGY: [ ] ASSESSMENT: Multi-vessel coronary artery disease status post CABG 12/28/2024 Non-STEMI. 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 Hypertension. Anemia. 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 THEODORA RICHARDS MD Jan 17, 2025 20:57
--- NOTE | 2025-01-17 21:00 | NUR ---
AWAKE AND ALERT, ASSISTED BACK TO BED FROM CHAIR. DENIES DISCOMFORT, NO SOB OR LABORED RESPIRATIONS, IS ENCOURAGED WHILE AWAKE. TELEMETRY MONITORING, CALL LIGHT WITHIN REACH
[2025-01-18] VITALS (8 sets, daily range): BP systolic 132–137; BP diastolic 84–96; PULSE 78–85; RESP 18–20; TEMP 98.2–99.4; O2SAT 98
--- NOTE | 2025-01-18 06:17 | PN ---
SUBJECTIVE: A 54-year-old diabetic male afebrile at 98.4, pulse 83, blood pressure 143/97, respirations 20. White count 9.0, H and H 12.2 and 38.2, platelets 569. BUN and creatinine level 93 and 3.8, glucose 162. The patient is being evaluated for discharge to home. The patient is being followed by Nephrology. The patient is currently ambulating with a surgical shoe on the left. He is status post coronary artery bypass grafting x 4. Status post removal of an intraaortic balloon pump with thrombectomy and fasciotomy. The patient has ischemic changes to the digits of his left foot in the presence of audible Doppler pulses on the left. He has acute on chronic combined heart failure with an ejection fraction of 25-30%. OBJECTIVE: On exam, dry eschars to the entire digits 1, 2, 3, and 4 and the tip of the left 5th. Blistering hemorrhagic lesions to the dorsum of the plantar forefoot are resolving. Digits are cold. Dopplers are audible to the anterior tibia and posterior tibia on the left. ASSESSMENT: A 54-year-old male demarcating necrosis of the digits status post thrombectomy, fasciotomy, removal of intraaortic balloon pump, status post 4-vessel coronary artery bypass grafting. PLAN: Monitor the patient's ischemic changes to the digits. They are currently dry and stable. They showed no clinical signs of infection. The bullous lesions are resolving. Blood cultures are negative. His white count is improving. He has been receiving IV ceftriaxone. The patient is ambulating with a surgical shoe. From my standpoint, discharge to home when okay with other services. TID: [id number] RECEIPT: [id number]
--- NOTE | 2025-01-18 08:29 | PN ---
[facility] CARDIOLOGY PROGRESS NOTE Cardiology progress note dictated for Verónica Nur MD Date Patient Seen: Jan 18, 2025 Interval History: No acute events overnight He has pain to the Left foot with weight bearing but otherwise feels well Telemetry demonstrating NSR with hr in the 80's Physical Examination: GENERAL: No acute distress. Whispers to speak. NECK: No JVD. LUNGS: Clear lung sounds. HEART: Regular rate and rhythm. Normal S1 and S2 without murmurs, gallop or rub. VASC: LLE AT pulse by Doppler. Unable to palpate right AT pulse. ABD: soft, nontender. SKIN: Left lower extremity blistering and blackened discoloration to LLE distal digits. Sensation decreased, refused to attempt to move toes. Skin sloughing noted to the dorsal aspect of the 2nd-3rd toes. Petechiae to dorsal aspect of the right foot. NEURO: Awake, alert, moves all extremities. Laboratory: Hematology Labs: Test 01/17/25 04:40 Range/Units White Blood Count 9.0 4.8-10.8 K/uL Red Blood Count 4.64 4.50-6.20 MIL/uL Hemoglobin 12.2 L 14.0-18.0 g/dL Hematocrit 38.2 L 42-54 % Mean Corpuscular Volume 82.3 79-99 fL Mean Corpuscular Hemoglobin 26.3 L 27.0-33.0 pg Mean Corpuscular Hemoglobin Concent 31.9 L 32.0-36.0 g/dL Red Cell Distribution Width 25.9 H 11.0-15.5 % Platelet Count 569 H 130-400 K/uL Mean Platelet Volume 11.4 H 7.5-10.5 fL Immature Granulocyte % (Auto) 1.8 H 0-1 % Neutrophils (%) (Auto) 74.5 40.0-77.0 % Lymphocytes (%) (Auto) 13.1 L 21.0-51.0 % Monocytes (%) (Auto) 8.6 3.0-13.0 % Eosinophils (%) (Auto) 1.9 0.0-8.0 % Basophils (%) (Auto) 0.1 0.0-5.0 % Neutrophils # (Auto) 6.7 1.8-7.7 K/uL Lymphocytes # (Auto) 1.2 1.0-4.8 K/uL Monocytes # (Auto) 0.8 0.1-1.0 K/uL Eosinophils # (Auto) 0.17 0.00-0.70 K/uL Basophils # (Auto) 0.01 0.00-0.20 K/uL Absolute Immature Granulocyte (auto 0.16 0-1 K/uL Nucleated Red Blood Cells 0.0 0.0-0.19 % Chemistry Labs: Test 01/17/25 15:46 01/17/25 04:40 Range/Units Whole Blood Glucose 162 H 70-110 MG/DL Bedside Glucose Comment Notified Nurse Sodium Level 132 L 136-145 mmol/L Potassium Level 3.1 L 3.5-5.1 mmol/L Chloride Level 97 L 101-111 mmol/L Carbon Dioxide Level 23 21-32 mmol/L Blood Urea Nitrogen 93 *H 7-18 mg/dL Creatinine 3.8 H 0.5-1.3 mg/dL Glomerular Filtration Rate Calc 18 >90 mL/min Random Glucose 103 70-105 mg/dL Lactic Acid Level 1.8 0.8-2.5 mmol/L Total Calcium 8.1 L 8.5-10.1 mg/dL Diagnostics / Radiology: Impression and Plan: ACS-NSTEMI MVCAD s/p CABG with VG-RCA, VG-OM, TORRES-LAD and VG-distal LAD LLE ALI while IABP in place, status post femoral thrombectomy, placed on a rgatroban. New onset atrial fibrillation with rapid ventricular response, converted, placed on renally dose Eliquis Hypertension ICMP LVEF 25-30% Acute renal failure without dialysis #ACS-NSTEMI on presentation Patient presented as a transfer for admission due to NSTEMI Presenting hemoglobin was 7.1 g, underwent EGD was negative for active bleeding or ulcers Coronary angiogram revealing MVCAD s/p 4 v CABG and insertion of aortic balloon pump with VG-RCA, VG-OM, TORRES-LAD and VG-distal LAD, Removal of IABP 12/31 Creatinine improving currently at 3.8 (max 8.3). Continue Plavix 75 mg daily, ASA 81 mg daily, Lopressor 50 mg every 12 hours and atorvastatin 40 mg q.h.s. #HFrEF ICM-LVEF 25-30%- NYHA II Euvolemic and compensated on exam 2D echocardiogram (01/01/2025) LVEF 25-30%, hypokinetic anterior wall and apex. Strict I's and O's and daily weights. Continue Lasix, GDMT: Continue Lopressor 50 mg every 12 hours Unable to utilize other GDMT agents due to impaired renal function #Paroxysmal atrial fibrillation Documented episode atrial fibrillation with RVR on 01/04/2025 Initially cardioverted with amiodarone bolus and infusion, placed on renally dose Eliquis -- case management consultation for coupon card. Will likely need to be transitioned to warfarin as outpatient due to finances. Continue Amiodarone 200mg daily Keep on telemetry, monitor/replace electrolytes as needed ( Mg >2 , K > 4 ) #PAD s/p Removal of intra-aortic balloon pump , thrombectomy, and fasciotomy Bilateral lower extremity arterial doppler dated 12/31/2024 : Monophasic waveforms throughout the left lower extremity suggesting of inflow disease No flow seen in the left anterior tibial artery or dorsalis pedis arteries. No plans for invasive angiography at this time due to tenuous renal function. Discharge planning... KIMBER JUAREZ WIRELESS TELEGRAPHER Jan 18, 2025 08:29
--- NOTE | 2025-01-18 09:09 | PN ---
FOLLOWUP PROGRESS NOTE SUBJECTIVE: A 54-year-old male with a history of diabetes mellitus and hypertension. He initially presented and underwent coronary bypass graft surgery. The patient has had acute renal failure postoperatively. Creatinine continues to slowly improve. The patient is being seen by case management in regards to final disposition and he is being seen as a followup visit for all of the above. REVIEW OF SYSTEMS: GENERAL: He is feeling weak and tired. HEENT: No change in vision. No change in hearing. CARDIOVASCULAR: There are no current chest pains or palpitations. PULMONARY: There is no shortness of breath. GASTROINTESTINAL: He is tolerating a diet. MUSCULOSKELETAL: Complains of weakness. PHYSICAL EXAMINATION: VITAL SIGNS: Blood pressure is 137/86, pulse in the 80s, afebrile. GENERAL: He is a chronically old male, much older than appearing. HEENT: Head is atraumatic. Pupils equal, round, and reactive to light. Oropharynx is without exudate. Nares are clear. NECK: There is no JVP. There is no thyromegaly. No mass. CARDIOVASCULAR: Regular. There is no S3 or S4 gallop. LUNGS: Coarse with equal thoracic movement. ABDOMEN: Soft, nontender, nondistended. EXTREMITIES: There is no edema. NEUROLOGICAL: He is awake. He is alert. LABORATORY DATA: Sodium 132, potassium 3, BUN 93, creatinine 3.8, hemoglobin 12, hematocrit 38. IMPRESSION: * Acute renal failure. * Coronary artery disease status post CABG. * Diabetes mellitus. * Hypertension. PLAN: The patient's renal function continues to slowly improve. The patient's pulmonary symptoms also improved. He remains on low-dose Lasix. The patient could safely be discharged from a renal standpoint. The patient with multiple questions, all of which were answered. TID: [id number] RECEIPT: [id number]
--- NOTE | 2025-01-18 12:59 | NUR ---
CM note CM and Julio Cesar Clinical Pyridine Recovery Operator went to speak with Pt and Son Louis regarding discharge. Pt was discharged yesterday 01/17/2025 and Pt did signed discharge paper and instructions were given to pt by bedside nurse yesterday. Per Nurse Henderson son Louis refused to take pt home 01/17/25. Here today at 1205 PM discussed sons concerns regarding pt wound care. Educated pt and son regarding discharge and follow up arnaldo visits were provided along supplies for lower extremity. Hayden Myers continues to refuse to take pt home. CM Director aware and updates given.
[2025-01-18] MEDS ORDERED: AMIO200T44 PO (13:09)
--- NOTE | 2025-01-18 13:45 | NUR ---
PT WAS TAKEN TO PRIVATE VEHICLE AFTER DRESSING WAS CHANGED AND PT IN NO APPARENT DISTRESS AND SON OFFERING N/C AT PRESENT.
--- NOTE | 2025-01-18 16:32 | DS ---
Discharge Summary Hospital Course Summary: This is a case 54 year old with PMH of Anemia, HTN who was transferred from [facility] for coronary artery bypass grafting after presenting with chest pain described as intermittent, pressure like, left-sided associated with elevated high sensitivity troponin diagnosed as ACS/STEMI. He was also noted to have anemia with hemoglobin of 7.1. Echocardiogram revealed LVEF of 55-60%. EGD was negative for active bleeding ulcers and left heart catheterization demonstrated multivessel CAD. Initial EKG at [facility] showed sinus rhythm with sinus arrhythmia occasional PVCs and undetermined inferior infarct. He subsequently underwent CABG at [facility]. His hospital course was complicated by acute renal failure with creatinine peaking at 8.3 for which Nephrology was consulted. He has developed Left lower extremity ischemia while on intra-aortic balloon pump, requiring left femoral artery thrombectomy with taoist of flow. He has also developed left lower extremity toe necrosis and blistering which stabilized and remained dry without infection, podiatry recommended conservative management. Additionally, he experienced episodes of new onset atrial fibrillation managed initially with IV amiodarone drip and later transitioned to oral amiodarone along with initiation of apixaban[to transition to warfarin as outpatient for f inancial reasons]. He was also noted to have sacral/buttock wounds for which Wound Care was consulted and gradual improvement was seen. Over the course of hospitalization is renal function slowly improved on Lasix drip, later transitioned to IV and currently maintained on oral furosemide 20 mg b.i.d..He tolerated diet advancement meth pureed to regular diet, ambulating comfortably with surgical shoes and remained hemodynamically stable. Today the patient is seen and examined at the bedside. Vitals blood pressure ranging in 110s to 120s/60s. He states that he feels well and has no new symptoms or complaints apart from pain in the left lower extremity during weight-bearing. Tolerating oral feeds without any nausea/vomiting. Ambulating well with physical therapy. Labs sodium 132, potassium 3.1, chloride 97, BUN 93, creatinine 3.8, glucose 162. He was cleared for discharge by Cardiology, CTS, Nephrology and Podiatry. Cardiology recommended continuation of aspirin, clopidogrel, metoprolol and atorvastatin daily with no active intervention for peripheral artery disease given renal status and continuation of apixaban for 1 month. Nephrology advised continuation of furosemide 20 mg b.i.d.. A coupon for apixaban was provided and arrangements were made for [facility] wound care follow up visits. Adult Education Teacher(s): Nephrology consult , IMPRESSION: * Acute renal failure. * Coronary artery disease status post CABG. * Diabetes mellitus. * Hypertension. PLAN: The patient's renal function continues to slowly improve. The patient's pulmonary symptoms also improved. He remains on low-dose Lasix. The patient could safely be discharged from a renal standpoint. The patient with multiple questions, all of which were answered. CTS consult ASSESSMENT: Status post CABG. * had some areas of necrosis, followed by Dr. Persaud. Continue antibiotics. Wound dressing changes. Continue foot splint, PT/OT. * Cardiac: Aspirin 81 mg, metoprolol 25 mg * Acute kidney injury without dialysis. BUN and creatinine have improved significantly and now they are almost back to normal levels. Continue to monitor urinary output and renal function. * Vascular. Continue Plavix and aspirin. * Dyslipidemia. Lipitor 40 mg once a day. PLAN: OT, PT, discharge planning. Follow up as an outpatient, PT for ambulation. Podiatry consult , ASSESSMENT: A 54-year-old male demarcating necrosis of the digits status post thrombectomy, fasciotomy, removal of intraaortic balloon pump, status post 4-vessel coronary artery bypass grafting. PLAN: Monitor the patient's ischemic changes to the digits. They are currently dry and stable. They showed no clinical signs of infection. The bullous lesions are resolving. Blood cultures are negative. His white count is improving. He has been receiving IV ceftriaxone. The patient is ambulating with a surgical shoe. From my standpoint, discharge to home when okay with other services. Cardiology consult [facility] Impression and Plan: ACS-NSTEMI MVCAD s/p CABG with VG-RCA, VG-OM, TORRES-LAD and VG-distal LAD LLE ALI while IABP in place, status post femoral thrombectomy, placed on argatroban. New onset atrial fibrillation with rapid ventricular response, converted, placed on renally dose Eliquis Hypertension ICMP LVEF 25-30% Acute renal failure without dialysis #ACS-NSTEMI on presentation Patient presented as a transfer for admission due to NSTEMI Presenting hemoglobin was 7.1 g, underwent EGD was negative for active bleeding or ulcers Coronary angiogram revealing MVCAD s/p 4 v CABG and insertion of aortic balloon pump with VG-RCA, VG-OM, TORRES-LAD and VG-distal LAD, Removal of IABP 12/31 Creatinine improving currently at 3.8 (max 8.3). Continue Plavix 75 mg daily, ASA 81 mg daily, Lopressor 50 mg every 12 hours and atorvastatin 40 mg q.h.s. #HFrEF ICM-LVEF 25-30%- NYHA II Euvolemic and compensated on exam 2D echocardiogram (01/01/2025) LVEF 25-30%, hypokinetic anterior wall and apex. Strict I's and O's and daily weights. Continue Lasix, GDMT: Continue Lopressor 50 mg every 12 hours Unable to utilize other GDMT agents due to impaired renal function #Paroxysmal atrial fibrillation Documented episode atrial fibrillation with RVR on 01/04/2025 Initially cardioverted with amiodarone bolus and infusion, placed on renally dose Eliquis -- case management consultation for coupon card. Will likely need to be transitioned to warfarin as outpatient due to finances. Continue Amiodarone 200mg daily Keep on telemetry, monitor/replace electrolytes as needed ( Mg >2 , K > 4 ) #PAD s/p Removal of intra-aortic balloon pump , thrombectomy, and fasciotomy Bilateral lower extremity arterial doppler dated 12/31/2024 : Monophasic waveforms throughout the left lower extremity suggesting of inflow disease No flow seen in the left anterior tibial artery or dorsalis pedis arteries. No plans for invasive angiography at this time due to tenuous renal function. Critical care consult [facility],, Wound care consult , GI consult Assessment: melena concern for GI bleed Plan: [No GI endoscopic intervention at this time given guarded status Trend HGB and transfuse as needed to goal HGB >7 Continue Gi prophylaxis with protonix 40mg IV bid Please call with questions, concerns, and change in clinical status and any s/s of overt GI bleed Will continue to follow Will defer to medical management Thank you for this consult. ] Procedure(s): SERVICE 0600 REASON: chest tube ORDERING PHYSICIAN: BORIS LOW PROCEDURE: CXR1VW - CHEST 1VW EXAM: CR Chest, 1 view. CLINICAL HISTORY: Chest tube. COMPARISON: CR Chest. 01/08/2025. FINDINGS: The right PICC line with the tip in the superior vena cava. Stable scarring in the left mid zone. Stable trace mild left pleural effusion. The lungs show no infiltration. No pneumothorax. The cardio mediastinal silhouette is within normal limits. No acute osseous abnormality. IMPRESSION: The right PICC line with the tip in the superior vena cava. Stable scarring in the left mid zone. Stable trace mild left pleural effusion. [facility] 0600 REASON: chest tube ORDERING PHYSICIAN: BORIS LOW PROCEDURE: CXR1VW - CHEST 1VW EXAM: CR Chest, 1 View. CLINICAL HISTORY: chest tube COMPARISON: CR Chest Dated 01/07 FINDINGS: LUNGS: The lungs show no infiltrate or other acute finding. PLEURAL SPACES: Trace left pleural effusion. No residual pneumothorax MEDIASTINUM: The cardiomediastinal silhouette is within normal limits. BONES: No aggressive appearing osseous lesion seen. Post sternotomy changes. MISCELLANEOUS: Right PICC line mid SVC IMPRESSION: 1. No acute pulmonary findings. 2. Trace left pleural effusion. 3. Right PICC line terminating in mid SVC. [facility] 0600 REASON: chest tube ORDERING PHYSICIAN: BORIS LOW PROCEDURE: CXR1VW - CHEST 1VW CHEST 1VW REASON: chest tube COMPARISON: Prior chest radiograph from 01/05/2025 is available. FINDINGS: Single view of the chest was obtained. Lungs are clear. Heart size is normal with median sternotomy. There is a right-sided PICC catheter in place. There is a left-sided chest tube in place.. There is no pulmonary vascular congestion. Mediastinum and bony thorax appear unremarkable. IMPRESSION: 1. Status post median sternotomy with cardiac revascularization procedure 2. Support lines are in satisfactory position. 3. No evidence of airspace consolidation or pulmonary venous congestion. DICTATED BY: FRED NUNES MD DATE: 01/07/25 1032 SERVICE 0807 REASON: ischemic digits ORDERING PHYSICIAN: MACEY GALO DO PROCEDURE: ART U LE - US ARTERIAL UNILA LOW EXT DUPL EXAMINATION: DUPLEX ULTRASOUND EXAMINATION OF THE LEFT LOWER EXTREMITY ARTERIES. CLINICAL HISTORY: Pain. COMPARISON: Bilateral lower extremity arterial doppler dated 12/31/2024. FINDINGS: Peak systolic velocities within the left lower arteries are as follows: Common femoral artery: 217 cm/s. Superficial femoral artery: 45 cm/s at proximal, 47 cm/s at mid, and 45 cm/s at distal segments. Popliteal artery: 49 cm/s at proximal and 41 cm/s at distal segments. Posterior tibial artery: 38 cm/s. Anterior tibial artery: 28 cm/s. Dorsalis pedis artery: 55 cm/s. The left lower limb arteries demonstrate triphasic to biphasic waveforms in all arteries. There is intimal wall thickening and multilevel atherosclerosis in the left lower limb arteries. There is a hematoma that measures 2.6 x 2.7 cm adjacent to the left common femoral artery. IMPRESSION: Elevated velocity left inflow with drop in flow velocities suggesting mild to moderate inflow stenosis. Subcutaneous hematoma adjacent to the left common femoral artery. /[place] SERVICE 0600 REASON: POST CABG ORDERING PHYSICIAN: KATHRIN PONCE MD PROCEDURE: CXR1VW - CHEST 1VW CHEST 1VW REASON: POST CABG COMPARISON: Prior study from 01/04/2025 is available. FINDINGS: Single view of the chest was obtained. Lungs are clear. There is mild cardiomegaly with median sternotomy with cardiac revascularization procedure. There is a right-sided chest tube in place. There is a right internal jugular vascular sheath in place.. . There is no pulmonary vascular congestion. Mediastinum and bony thorax appear unremarkable. IMPRESSION: 1. Mild cardiomegaly with median sternotomy 2. Support lines satisfactory position 3. No evidence of airspace consolidation or pulmonary venous congestion.. SERVICE 1812 REASON: PICC LINE PLACEMENT ORDERING PHYSICIAN: KATHRIN PONCE MD PROCEDURE: CXR1VW - CHEST 1VW EXAM: CR Chest, 2 View. CLINICAL HISTORY: PICC LINE PLACEMENT COMPARISON: 01/04/2025 FINDINGS: LUNGS: Mild pulmonary vascular congestion. No pulmonary infiltrates. PLEURAL SPACES: No evidence of pleural effusion or pneumothorax. MEDIASTINUM: Stable cardiomegaly. Again noted are sternotomy wires. BONES: No aggressive appearing osseous lesion seen. MISCELLANEOUS: Right sided PICC line with its tip in the superior vena cava. Right sided jugular sheath with its tip in the superior vena cava. IMPRESSION: 1. Right sided PICC line with its tip in the superior vena cava. Right sided jugular sheath with its tip in the superior vena cava. 2. Stable cardiomegaly. 3. Mild pulmonary vascular congestion. No pulmonary infiltrates. /[facility] 0711 REASON: post cabg ORDERING PHYSICIAN: KATHRIN PONCE MD PROCEDURE: CXR1VW - CHEST 1VW EXAM: CR Chest, single view. CLINICAL HISTORY: Post CABG. COMPARISON: Prior chest radiograph dated 03 January 2025. FINDINGS: Central venous catheter with tip in the region of the superior vena cava. Poststernotomy status. Borderline cardiomegaly. Mild right-sided pleural effusion with adjacent lung atelectasis. Intercostal drainage catheter in the left pleural cavity. No acute osseous abnormality. IMPRESSION: Central venous catheter with tip in the region of the superior vena cava. Poststernotomy status. Borderline cardiomegaly. Mild right-sided pleural effusion with adjacent lung atelectasis. Intercostal drainage catheter in the left pleural cavity. Compared to the prior study, there is no significant interval change. /[facility] 0600 REASON: pp ORDERING PHYSICIAN: CHEYENNE HENSON PROCEDURE: CXR1VW - CHEST 1VW EXAM: CR Chest, single view. CLINICAL HISTORY: PP COMPARISON: Prior chest radiograph dated 02 January 2025. FINDINGS: Right-sided central venous catheter with tip in the region of the superior vena cava. Chest tubes are changing positions. Mild right-sided pleural effusion with adjacent lung atelectasis. Subsegmental atelectasis in the lingula. Poststernotomy status. Mild cardiomegaly. No evidence of pneumothorax. No acute osseous abnormality. IMPRESSION: Right-sided central venous catheter with tip in the region of the superior vena cava. Mild right-sided pleural effusion with adjacent lung atelectasis. Subsegmental atelectasis in the lingula. Poststernotomy status. Mild cardiomegaly. No evidence of pneumothorax. Compared to the prior study, there is a mild reduction in the right-sided pleural effusion. /[facility] 0400 REASON: s/p CABG ORDERING PHYSICIAN: KATHRIN PONCE MD PROCEDURE: CXR1VW - CHEST 1VW EXAM: XR Chest, 1 View. CLINICAL HISTORY: 54-year-old male with Coronary artery bypass graft. COMPARISON: 01/01/2025. FINDINGS: LUNGS: Note is made of small bilateral pleural effusions. PLEURAL SPACES: See above. HEART: Mild cardiomegaly is present. BONES: No acute osseous abnormality. LINES AND TUBES: The nasogastric tube is projected over the central chest. Right internal jugular central line is in place. Endotracheal tube was present in the previous study dated 01/01/2025, but is not visualized on the current study. IMPRESSION: 1. Mild cardiomegaly and small bilateral pleural effusions, similar to the prior study. 2. Right internal jugular central line in place with associated tenderness. 3. Nasogastric tube in place. /[facility] 1114 REASON: post op hypotension/reassess LVEF ORDERING PHYSICIAN: TERRANCE ALVAREZ PROCEDURE: ECHO CMP - ECHO 2-D COMPLETE APPROVED REPORT EXAM: Two-dimensional and M-mode echocardiogram with Doppler and color Doppler. Study Details: CP , HTN INDICATION ICD: post op hypotension / reassess 2D Dimensions RVDd 4.5 cm LVEF(%) 34.1 (>50%) LVED Vol(simp.) 97.7 mL IVSd 0.9 (0.7-1.1cm) FS(%) 16 % LVES Vol(simp.) 76.8 mL LVDd 4.2 (3.8-5.6cm) LA (2D) 2.7 (1.6-4.0cm) LVEF(%, simp.) 21 % PWd 0.8 (0.7-1.1cm) Ao Root(2D) 2.8 (2.0-3.7cm) LA ESV INDEX (BP) 21.01 mL/m2 IVSs 1.1 cm LVOT diam 1.9 (1.8-2.4cm) LVDs 3.5 (2.5-4.0cm) PWs 1.1 cm Deformation Strain Apical 4 4.3 % Apical 2 1.6 % Apical 3 2.4 % Global Strain 2.4 % M-Mode Dimensions EPSS 1.2 cm LA (MM) 3.6 (1.6-4.0cm) Ao Root(MM) 3.2 (2.0-3.7cm) Aortic Valve AoV Vmax 1.0 m/s Ao Peak GR 4.1 mmHg LVOT Vmax 0.6 m/s AoV VTI 0.2 m Ao Mean GR 2.5 mmHg LVOT VTI 0.10 m MARGARITA (VMAX) 1.62 cm2 MARGARITA (VTI) 1.7 cm2 Mitral Valve MV E Vmax 54.6 cm/s DECEL Time 169 ms MV A Vmax 54.6 cm/s P 1/2 T 49 ms E/A ratio 1.0 MVA (PHT) 4.5 cm2 TDI E/E' Medial 13.7 E/E' Lateral 18.7 Medial E' Peak V 3.99 cm/s Lateral E' Peak V 2.92 cm/s Pulmonary Valve PV Vmax 0.5 m/s PV VTI 0.08 m PV Mean GR 0.7 mmHg PV Peak GR 1.0 mmHg Tricuspid Valve TR Vmax 2.5 m/s RVSP 25.3 mmHg TR Peak GR 25.3 mmHg Left Ventricle The left ventricle is mildly dilated. Hyopkinetic anterior wall and apex. Global strain of -25. There is moderate concentric left ventricular hypertrophy.. LVEF is 25-30%. 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 Indeterminate diastolic dysfunction. Right Ventricle The right ventricle is mildly dilated. Right ventricular systolic function is moderately to severely reduced. Atria The left atrium size is normal. The right atrium size is normal. Aortic Valve The aortic valve is not well visualized. No aortic regurgitation is present. There is mild valvular aortic stenosis. Mitral Valve The mitral valve is mildly thickened. There is no mitral valve regurgitation noted. There is no mitral valve stenosis. Tricuspid Valve Tricuspid valve is not well visualized. trace tricuspid regurgitation. Pulmonic Valve The pulmonary valve is normal in structure and function. There is no pulmonic valvular regurgitation. Great Vessels The aortic root is normal in size. IVC is not well visualized. Pericardium not well visualized Conclusion The left ventricle is mildly dilated. LVEF is 25-30%. Hyopkinetic anterior wall and apex. Global strain of -25. 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 SERVICE 0400 REASON: s/p CABG ORDERING PHYSICIAN: KATHRIN PONCE MD PROCEDURE: CXR1VW - CHEST 1VW EXAM: CR Chest, 1 View. CLINICAL HISTORY: s/p CABG COMPARISON: Study dated 12/31. FINDINGS: There is an endotracheal tube noted with its tip approximately 3.8 cm above the buddy. There is an enteric tube noted with its tip in the stomach. There is a right-sided jugular sheath in the superior vena cava. LUNGS: Again noted are diffuse bilateral airspace opacities, which show an interval decrease when compared with the prior exam. PLEURAL SPACES: Mild left-sided pleural effusion. No evidence of pneumothorax. MEDIASTINUM: Cardiac size and mediastinal contours are within normal limits. BONES: No acute osseous abnormality. IMPRESSION: 1. No acute cardiopulmonary findings. 2. Appropriately positioned endotracheal tube, enteric tube, and right jugular sheath. 3. Improving bilateral airspace opacities. 4. New finding of mild left pleural effusion. /[place] SERVICE 1405 REASON: s/p intubation ORDERING PHYSICIAN: KATHRIN PONCE MD PROCEDURE: CXR1VW - CHEST 1VW EXAM: CR Chest, 2 View. CLINICAL HISTORY: s/p intubation COMPARISON: 12/31/2024 at 3:51 AM FINDINGS: There is an endotracheal tube noted with its tip approximately 4 cm above the buddy. There is an enteric tube noted with its tip in the stomach. There is a right sided jugular sheath in place. LUNGS: Again noted are diffuse bilateral airspace opacities which are worse when compared with the prior exam. PLEURAL SPACES: No pleural effusion or pneumothorax. MEDIASTINUM: The cardiomediastinal silhouette is within normal limits. BONES: No acute osseous abnormality. IMPRESSION: Satisfactory position of the support lines and tubes. Diffuse bilateral airspace opacities which are worse when compared with the prior exam. /[place] SERVICE REASON: EVAL LT LUIS AND DPA FOR PATENCY S/P IABP REMOVAL ORDERING PHYSICIAN: BURKE SULLIVAN MD PROCEDURE: GUIDE IV - US GUIDANCE FOR VASCULAR ACCES US GUIDANCE FOR VASCULAR ACCES HISTORY: EVAL LT LUIS AND DPA FOR PATENCY S/P IABP REMOVAL TECHNIQUE: Real-time arterial doppler ultrasound of the lower extremity was performed. US GUIDANCE FOR VASCULAR ACCES HISTORY: EVAL LT LUIS AND DPA FOR PATENCY S/P IABP REMOVAL TECHNIQUE: Real-time arterial doppler ultrasound of the left lower extremity was performed. To evaluate patency of left anterior tibial and dorsalis pedis artery FINDINGS: The left anterior tibial artery and dorsalis pedis artery has no flow seen IMPRESSION: No fluid identified in the left anterior tibial and dorsalis pedis artery. SERVICE 1342 REASON: abdominal pain ORDERING PHYSICIAN: CHEYENNE HENSON PROCEDURE: ABDOMEN - US ABDOMINAL COMPLETE US ABDOMINAL COMPLETE REASON: 54-year-old male with abdominal pain COMPARISON: None FINDINGS: The visualized portion of the chest demonstrate there is small right-sided pleural effusion. There is grade 1 hepatic steatosis the liver.. The left lobe of the liver is obscured by overlying bowel gas. There are no focal mass lesions. The liver is not enlarged.There is a normal-appearing gallbladder. The gallbladder wall thickness is 0.1 cm. The common bile duct is normal size measuring 0.4 cm. Kidneys appear normal in size and appearance. The right kidney measures 9.8 x 4.3 x 4.9 cm. The left kidney measures 9.8 x 4.7 x 5.1 cm.. There is no evidence of mass, stone or hydronephrosis. Spleen appears normal. The spleen length is 9.7 cm.. Aorta and inferior vena cava appear normal. The pancreas is obscured by overlying bowel gas. IMPRESSION: Small right-sided pleural effusion Otherwise a normal upper abdomen sonogram.. DICTATED BY: FRED NUNES MD SERVICE 1302 REASON: IABP ORDERING PHYSICIAN: KATHRIN PONCE MD PROCEDURE: CXR1VW - CHEST 1VW EXAM: CR Chest, 1 View. CLINICAL HISTORY: IABP COMPARISON: Radiograph dated December 30, 2024 at 1121 FINDINGS: Enteric tube terminates within the stomach. Right IJ central venous catheter tip projects over the SVC. Left chest tube remains in satisfactory position. Relatively unchanged mild multifocal airspace disease, more pronounced at the left lung base. No pleural effusion or pneumothorax. Heart size is stable. Mild central pulmonary vascular congestion. IMPRESSION: 1. Mild multifocal airspace disease, more pronounced at left lung base, with mild central pulmonary vascular congestion. 2. Appropriately positioned lines and tubes, including right IJ central line with tip in SVC. /[place] SERVICE 1117 REASON: IABP POSITION ORDERING PHYSICIAN: KATHRIN PONCE MD PROCEDURE: CXR1VW - CHEST 1VW EXAM: CR Chest, 1 View. CLINICAL HISTORY: IABP POSITION COMPARISON: Radiograph dated December 30, 2024 at 5:03 AM Findings: AP view of the chest is submitted. Right IJ central venous catheter tip projects over the SVC. Enteric tube terminates within the stomach. Left chest tube is unchanged in position. Relatively unchanged mild multifocal airspace disease, predominantly at the left lung base. No pleural effusion or pneumothorax. Heart size is stable. Mild central pulmonary vascular congestion. IMPRESSION: 1. Stable mild multifocal airspace disease, predominantly at the left lung base. 2. Mild central pulmonary vascular congestion. 3. Left chest tube, right IJ central venous catheter, and enteric tube in appropriate positions. /[place] DICTATED BY: NOÉ SERNA Jr., MD DATE: 12/30/24 1328 SERVICE 0808 REASON: Distention ORDERING PHYSICIAN: CHEYENNE HENSON PROCEDURE: ABD 1VW - ABD 1VW EXAM: CR Abdomen, 2 View. CLINICAL HISTORY: Distention COMPARISON: None provided. FINDINGS: BOWEL: The bowel gas pattern is within normal limits. PERITONEUM/SOFT TISSUES: No free air evident. No pathologic appearing calcification. BONES: No aggressive appearing osseous lesion seen. IMPRESSION: The bowel gas pattern is within normal limits. /[place] DICTATED BY: NOÉ SERNA Jr., MD DATE: 12/30/24 0953 SERVICE 9 REASON: s/p CABG ORDERING PHYSICIAN: KATHRIN PONCE MD PROCEDURE: CXR1VW - CHEST 1VW CHEST 1VW REASON: s/p CABG COMPARISON: Prior chest radiograph from 12/29/2024 is available. FINDINGS: The study demonstrate the cardiac silhouette is within limits of normal with median sternotomy with cardiac revascularization procedure. There is diffuse mild interstitial pulmonary edema which was not seen on the prior radiograph. The support lines including the right internal jugular vascular sheath left-sided chest view are in satisfactory position. The bony thorax demonstrate no gross abnormality. IMPRESSION: 1. Status post median sternotomy with cardiac revascularization procedure 2. Mild interstitial pulmonary edema 3. Support lines are in satisfactory position. DICTATED BY: FRED NUNES MD DATE: 12/30/24 1022 REPORT#: [id number] SERVICE 0703 REASON: ABDOMINAL DISTENTION ORDERING PHYSICIAN: KATHRIN PONCE MD PROCEDURE: ABD 1VW - ABD 1VW ABD 1VW REASON: ABDOMINAL DISTENTION FINDINGS: Single image of the abdomen was obtained. Bowel gas pattern is nonspecific. There is a nasogastric tube with the tip in the antrum of the stomach.. Bones and soft tissues appear unremarkable. There are no abnormal calcifications. There is no evidence of foreign body. Patient is status post median sternotomy. There is a surgical clips in the right lower quadrant. IMPRESSION: 1. Nonspecific gas pattern 2. Status post median sternotomy 3. Nasogastric tube with the tip in the antrum of the stomach. SERVICE 9 REASON: s/p CABG ORDERING PHYSICIAN: KATHRIN PONCE MD PROCEDURE: CXR1VW - CHEST 1VW CHEST 1VW REASON: s/p CABG COMPARISON: 12/28/2024 is available. FINDINGS: Single view of the chest was obtained. Lungs are clear. Cardiac silhouette is normal size with median sternotomy. There is right-sided internal jugular vascular sheath in place. There is a left-sided chest tube in place. There is no pneumothorax.. There is no pulmonary vascular congestion. Mediastinum and bony thorax appear unremarkable. IMPRESSION: 1. No acute cardiopulmonary process and unchanged from prior study 2. Support lines in satisfactory position 3. Status post median sternotomy. DICTATED BY: FRED NUNES MD DATE: 12/29/24954 SERVICE 1600 REASON: s/p CABG ORDERING PHYSICIAN: KATHRIN PONCE MD PROCEDURE: CXR1VW - CHEST 1VW EXAM: CR Chest, 1 View. CLINICAL HISTORY: s/p CABG COMPARISON: Radiograph from December 27, 2024 Findings: AP view of the chest is submitted. Right IJ central venous catheter tip projects over the SVC. Endotracheal tube terminates 1.5 cm above the buddy. Chest tubes overlie the middle mediastinum and left hemithorax. No pneumothorax. Mild bibasilar atelectasis, more pronounced on the left. No pleural effusion. Interval sternotomy. Mild cardiomegaly. Pulmonary vessels are within normal limits. IMPRESSION: 1. No acute cardiopulmonary findings. 2. Appropriately positioned right IJ central venous catheter, endotracheal tube, and chest tubes. 3. Mild bibasilar atelectasis, left greater than right. /[place] SERVICE 1615 REASON: preop CABG ORDERING PHYSICIAN: KATHRIN PONCE MD PROCEDURE: ECHO [facility] - ECHO 2-D COMPLETE APPROVED REPORT EXAM: Two-dimensional and M-mode echocardiogram with Doppler and color Doppler. INDICATION ICD: Pre-Op CABG 2D Dimensions RVDd 3.0 cm LVEF(%) 53.8 (>50%) LVED Vol(simp.) 90.5 mL IVSd 0.8 (0.7-1.1cm) FS(%) 28 % LVES Vol(simp.) 43.2 mL LVDd 4.8 (3.8-5.6cm) LA (2D) 3.3 (1.6-4.0cm) LVEF(%, simp.) 52 % PWd 1.1 (0.7-1.1cm) Ao Root(2D) 2.9 (2.0-3.7cm) LA ESV INDEX (BP) 32.15 mL/m2 LVDs 3.5 (2.5-4.0cm) LVOT diam 2.1 (1.8-2.4cm) IVC diam 1.1 cm Deformation Strain Apical 4 -13.3 % Apical 2 -12.6 % Apical 3 -10.5 % Global Strain -12.1 % M-Mode Dimensions EPSS 1.5 cm LA (MM) 3.3 (1.6-4.0cm) Ao Root(MM) 3.0 (2.0-3.7cm) Aortic Valve AoV Vmax 1.4 m/s Ao Peak GR 7.3 mmHg LVOT Vmax 0.8 m/s AoV VTI 0.3 m Ao Mean GR 3.9 mmHg LVOT VTI 0.16 m MARGARITA (VMAX) 1.93 cm2 MARGARITA (VTI) 2.1 cm2 Mitral Valve MV E Vmax 74.7 cm/s DECEL Time 112 ms MV A Vmax 91.5 cm/s P 1/2 T 61 ms E/A ratio 0.8 MVA (PHT) 3.6 cm2 TDI E/E' Medial 15.2 E/E' Lateral 9.3 Medial E' Peak V 4.90 cm/s Lateral E' Peak V 8.01 cm/s Pulmonary Valve PV Vmax 1.0 m/s PV VTI 0.20 m PV Mean GR 2.3 mmHg PV Peak GR 3.8 mmHg Left Ventricle The left ventricle is normal size. Inferobasal hypokinesis. GLS is -12% and moderately to severely reduced with apical sparing. Moderate concentric LVH. LVEF is 50-55%. Stage I diastolic dysfunction. Right Ventricle The right ventricle is normal size. The right ventricular systolic function is normal. Atria The left atrium size is normal. The right atrium size is normal. Aortic Valve The aortic valve is normal in structure. No aortic regurgitation is present. There is no aortic valvular stenosis. Mitral Valve The mitral valve is normal in structure. There is no mitral valve regurgitation noted. There is no mitral valve stenosis. Tricuspid Valve The tricuspid valve is normal in structure. There is no tricuspid valve regurgitation noted. Pulmonic Valve The pulmonary valve is normal in structure. There is no pulmonic valvular regurgitation. Great Vessels The aortic root is normal in size. The IVC is normal in size and collapses >50% with inspiration. Pericardium There is no pericardial effusion. Conclusion The left ventricle is normal size. Moderate concentric LVH. Inferobasal hypokinesis. GLS is -12% and moderately to severely reduced with apical sparing. LVEF is 50-55%. Stage I diastolic dysfunction. The aortic valve is normal in structure. There is no mitral valve regurgitation noted. The IVC is normal in size and collapses >50% with inspiration. There is no pericardial effusion. DICTATED BY: NARAAYN ALVAREZ MD DATE: 12/27/24850 ELECTRONICALLY SIGNED BY: NARAYAN ALVAREZ MD SERVICE 0600 REASON: preop CABG ORDERING PHYSICIAN: KATHRIN PONCE MD PROCEDURE: CXR1VW - CHEST 1VW EXAM: CR Chest, single view CLINICAL HISTORY: Preop CABG COMPARISON: Prior chest radiograph dated 24 December 2024. FINDINGS: The lungs show no infiltrate or other acute findings. No pleural effusion or pneumothorax. The cardiomediastinal silhouette is within normal limits. No acute osseous abnormality. IMPRESSION: No acute cardiopulmonary pathology is evident. Compared to the prior study, there is no significant interval change. /[place] DICTATED BY: NOÉ SERNA Jr., MD DATE: 12/28/24 002 [facility] REPORT#: [id number] SERVICE 1615 REASON: preop CABG ORDERING PHYSICIAN: KATHRIN PONCE MD PROCEDURE: CAROTID - US CAROTID DUPLEX EXAMINATION: DUPLEX ULTRASOUND EXAMINATION OF THE BILATERAL CAROTID AND VERTEBRAL ARTERIES. CLINICAL HISTORY: Pre operative CABG. COMPARISON: None provided. TECHNIQUE: Real-time ultrasound scan of the bilateral carotid and vertebral arteries, 2-D grayscale, with color Doppler flow and spectral waveform analysis. FINDINGS: Color and spectral Doppler interrogation of the carotid vessels on the right demonstrate peak systolic velocities as follows: CCA (Proximal and distal): 68 and 65 cm/s respectively. Bulb: 61 cm/s. ECA: 92 cm/s. ICA (Proximal and distal): 74 and 75 cm/s respectively. Vertebral artery demonstrates antegrade flow: 55 cm/s. Right ICA/CCA ratio: 1.1 Peak systolic velocities on the left are as follows: CCA (Proximal and distal): 67 and 76 cm/s respectively. Bulb: 62 cm/s. ECA: 90 cm/s. ICA (Proximal and distal): 81 and 83 cm/s respectively. Vertebral artery demonstrates antegrade flow: 81 cm/s. Left ICA/CCA ratio: 1.0 Both the common carotid arteries and their branches reveal mild intimal thickening. There are calcified plaques in the bilateral carotid bulb without significant stenosis. IMPRESSION: Mild intimal thickening in the bilateral carotid arteries and their branches. Calcified plaques in the bilateral carotid bulb without significant stenosis. There is no significant flow limiting lesions in the remainder of the arteries. /[place] DICTATED BY: NOÉ SERNA Jr., MD DATE: 12/28/242122 SERVICE 0248 REASON: pre procedural ORDERING PHYSICIAN: ANA MARIA CUI LEGAL OFFICE ADMINISTRATOR PROCEDURE: CXR1VW - CHEST 1VW CHEST 1VW REASON: pre procedural COMPARISON: None. FINDINGS: Single view of the chest was obtained. Lungs are clear. There is hyperaeration of lungs with flattening of both hemidiaphragms.. Heart size is normal. There is no pulmonary vascular congestion. Mediastinum and bony thorax appear unremarkable. IMPRESSION: 1. No evidence of airspace consolidation or pulmonary venous congestion 2. 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 Hypertension. Anemia, Iron deficiency Acute Renal Failure New onset atrial fibrillation, not POA PLAN: ADMISSION DATE : 12/23/2024 DISCHARGE DATE : 01/17/2025 DISPOSITION : Home CONDITION : Stable Adult Education Teacher(s) : Nephrology consult , CTS consult , Podiatry consult , Critical care consult [facility] group, Cardiology consult [facility], Wound care consult , GI consult FOLLOW UP APPOINTMENTS : Follow up with PCP within 2-3 days Follow up with Nephrology consult at [facility] within 1-2 weeks [phone] Follow up with cardiology consult, [facility] within 1-2 weeks [phone] Follow up with Cardiothoracic surgeon Continue wound care as directed Follow up with finance analyst within 1-2 weeks PROCEDURES : CABG on 12/28/2024, Left LE femoral thrombectomy IMAGING (s) : Chest x-ray, 2D echo, abdominal X ray , arterial ultrasound of LE, Abdominal US, Carotid US MICROBIOLOGY : Negative blood cultures ACTIVITY : ad eliot HOME MEDICATIONS : Continued Aspirin 81mg NEW MEDICATIONS : Clopidogrel 75 mg, atorvastatin 40 mg, Eliquis 2.5 mg b.i.d., amiodarone 200mg PO daily, metoprolol 50 mg b.i.d., Lasix 20 mg b.i.d., doxycycline 100 mg b.i.d. for 7 days TEACHING : The patient was instructed to present to the nearest Emergency Department or call 911 should their symptoms return or worsen. Discharge Instructions: Follow up with PCP within 2-3 days Follow up with Nephrology consult at [facility] within 1-2 weeks [phone] Follow up with cardiology consult, [facility] group within 1-2 weeks [phone] Follow up with Cardiothoracic surgeon Continue wound care as directed Follow up with finance analyst within 1-2 weeks Continue taking Eliquis, Aspirin, Clopidogrel, Atorvastatin, Metoprolol medications as directed Coordinate with Nephrology on duration of lasix medication usage Wound and Limb Care Keep the the limb clean and dry Continue wound care as directed Monitor for redness, swelling, warmth, foul odor or new blisters Continue wearing surgical shoes while ambulating Continue Physical therapy Avoid Nephrotoxic drugs like NSAIDS Continue heart healthy diet Monitor for signs of bleeding like black stools, blood in urine ,bruising and other symptoms like fever, chills, SOB, chest pain, palpitations and seek immediate medical attention in such scenario Pt has been Approved 5 arnaldo visits at the wound healing center. Pt to call for follow up appt. P:[phone] F:[phone] Home Medications: Active Scripts Amiodarone HCl (Pacerone) 200 Mg Tablet, 200 MG PO DAILY for 30 Days, #30 TAB Prov:THEODORA RICHARDS MD 01/18/25 Doxycycline Monohydrate (Doxycycline Monohydrate) 100 Mg Capsule, 1 CAP PO BID for 7 Days, #14 CAP 0 Refills Prov:THEODORA RICHARDS MD 01/17/25 Apixaban (Eliquis) 2.5 Mg Tablet, 2.5 MG PO BID for 30 Days, #60 TAB Prov:THEODORA RICHARDS MD 01/17/25 Metoprolol Tartrate (Lopressor 50Mg Tab) 50 Mg Tab, 50 MG PO BID for 30 Days, #60 TAB Prov:JULIANA MORALES MD 01/17/25 Furosemide (Lasix 20Mg Tab) 20 Mg Tablet, 20 MG PO BID@09,17 for 30 Days, #60 TAB Prov:JULIANA MORALES MD 01/17/25 Clopidogrel Bisulfate (Plavix) 75 Mg Tablet, 75 MG PO DAILY for 30 Days, #30 TAB Prov:JULIANA MORALES MD 01/17/25 Atorvastatin Calcium (LIPITOR) 40 Mg Tablet, 40 MG PO HS for 30 Days, #30 TAB Prov:JULIANA MORALES MD 01/17/25 Acetaminophen (Tylenol) 325 Mg Tablet, 650 MG PO Q6H PRN for MILD PAIN (1-3) for 7 Days, #28 TAB Prov:JULIANA MORALES MD 01/17/25 Reported Medications Aspirin (Adult Low Dose Aspirin EC) 81 Mg Tablet., 81 MG PO DAILY, TAB 12/24/24 Time spent arranging discharge: 31-60 minutes ATTESTATION BY PHYSICIAN I have seen and examined the patient. I reviewed the documentation, medical decision making, and treatment plan as noted by the resident above. I agree with the findings and plan of care. Christiano Gibson MD, PRIYANKA MD Jan 18, 2025 16:32
--- NOTE | 2025-01-19 14:12 | PN ---
SUBJECTIVE: A 54-year-old gentleman, status post CABG, coursing postoperative day 21. Status post thrombectomy for acute ischemia of the left lower extremity. OBJECTIVE: GENERAL: Awake, alert, in no acute distress. VITAL SIGNS: Stable as recorded in the medical record. CHEST: Sternum stable. Incision sealed. LUNGS: Clear. EXTREMITIES: Warm and well perfused. No evidence of DVT, hematoma, or infection. ASSESSMENT: Status post CABG. * had some areas of necrosis, followed by Dr. Persaud. Continue antibiotics. Wound dressing changes. Continue foot splint, PT/OT. * Cardiac: Aspirin 81 mg, metoprolol 25 mg . * Acute kidney injury without dialysis. BUN and creatinine have improved significantly and now they are almost back to normal levels. Continue to monitor urinary output and renal function. * Vascular. Continue Plavix and aspirin. * Dyslipidemia. Lipitor 40 mg once a day. PLAN: OT, PT, discharge planning. Follow up as an outpatient, PT for ambulation. TID: [id number] RECEIPT: [id number]
== END 2025-01-18 13:30 | disposition home or self-care (01) | DRG 235 ==
LOC: 2DH 23:37 → 2CV 12-28 10:40 → 2CH 12-30 07:36 → 2AH 01-10 17:14
PROVIDERS: ADMIT Internal Medicine; ATTEND Internal Medicine
PROC: 30233N1 Transfusion of Nonautologous Red Blood Cells into Peripheral Vein, Percutaneous Approach (ICD-10-PCS; 2024-12-28)
PROC: 0PH000Z Insertion of Rigid Plate Internal Fixation Device into Sternum, Open Approach (ICD-10-PCS; 2024-12-28)
PROC: B24BZZ4 Ultrasonography of Heart with Aorta, Transesophageal (ICD-10-PCS; 2024-12-28)
PROC: 5A02210 Assistance with Cardiac Output using Balloon Pump, Continuous (ICD-10-PCS; 2024-12-28 12:29)
PROC: 02100Z9 Bypass Coronary Artery, One Artery from Left Internal Mammary, Open Approach (ICD-10-PCS; principal; 2024-12-29)
PROC: 021209W Bypass Coronary Artery, Three Arteries from Aorta with Autologous Venous Tissue, Open Approach (ICD-10-PCS; 2024-12-29)
PROC: 06BQ4ZZ Excision of Left Saphenous Vein, Percutaneous Endoscopic Approach (ICD-10-PCS; 2024-12-29)
PROC: 5A09357 Assistance with Respiratory Ventilation, Less than 24 Consecutive Hours, Continuous Positive Airway Pressure (ICD-10-PCS; 2024-12-30)
PROC: 04CL0ZZ Extirpation of Matter from Left Femoral Artery, Open Approach (ICD-10-PCS; 2024-12-31)
PROC: 05HY33Z Insertion of Infusion Device into Upper Vein, Percutaneous Approach (ICD-10-PCS; 2025-01-04)
PROC: B54MZZA Ultrasonography of Right Upper Extremity Veins, Guidance (ICD-10-PCS; 2025-01-04)
DX: I25.10 Atherosclerotic heart disease of native coronary artery without angina pectoris (principal); G93.41 Metabolic encephalopathy; I21.3 ST elevation (STEMI) myocardial infarction of unspecified site; N18.6 End stage renal disease; I50.43 Acute on chronic combined systolic (congestive) and diastolic (congestive) heart failure; J69.0 Pneumonitis due to inhalation of food and vomit; J95.1 Acute pulmonary insufficiency following thoracic surgery; J96.01 Acute respiratory failure with hypoxia; N17.9 Acute kidney failure, unspecified; F05 Delirium due to known physiological condition; I13.2 Hypertensive heart and chronic kidney disease with heart failure and with stage 5 chronic kidney disease, or end stage renal disease; E87.20 Acidosis, unspecified; Z20.822 Contact with and (suspected) exposure to COVID-19; I35.0 Nonrheumatic aortic (valve) stenosis; I48.0 Paroxysmal atrial fibrillation; E11.65 Type 2 diabetes mellitus with hyperglycemia; I99.8 Other disorder of circulatory system; I25.5 Ischemic cardiomyopathy; E87.5 Hyperkalemia; D50.9 Iron deficiency anemia, unspecified; E11.51 Type 2 diabetes mellitus with diabetic peripheral angiopathy without gangrene; E78.00 Pure hypercholesterolemia, unspecified; I49.3 Ventricular premature depolarization; E87.6 Hypokalemia; Z79.899 Other long term (current) drug therapy; Z79.82 Long term (current) use of aspirin; I25.2 Old myocardial infarction; Z79.01 Long term (current) use of anticoagulants; Z95.1 Presence of aortocoronary bypass graft; Z95.5 Presence of coronary angioplasty implant and graft; Z75.1 Person awaiting admission to adequate facility elsewhere; Z79.02 Long term (current) use of antithrombotics/antiplatelets; Y83.8 Other surgical procedures as the cause of abnormal reaction of the patient, or of later complication, without mention of misadventure at the time of the procedure
CPT/HCPCS: 36415; 36430; 36569; 36600; 71045; 74018; 76700; 76937; 80048; 80051; 80053; 80061; 80076; 81001; 82010; 82140; 82270; 82306; 82330; 82435; 82550; 82570; 82607; 82803; 82947; 82948; 83036; 83540; 83550; 83605; 83615; 83735; 83935; 84100; 84132; 84145; 84295; 85014; 85018; 85025; 85027; 85045; 85347; 85520; 85610; 85730; 86022; 86140; 86850; 86900; 86901; 86922; 86923; 87040; 87426; 87641; 87804; 92610; 93005; 93306; 93312; 93325; 93356; 93880; 93926; 94002; 94003; 94010; 94150; 94640; 94660; 94664; 94667; 94668; 97161; A4450; A7048; C1757; C1894; G0378; J0169; J0282; J0330; J0612; J0690; J0696; J0883; J1100; J1160; J1250; J1644; J1756; J1815; J1938; J2003; J2250; J2270; J2405; J2440; J2470; J2543; J2704; J2710; J2720; J3010; J3475; J3480; J3490; J7030; J7040; J7050; J7060; J7070; J8540; P9016; P9045; A4215; A4221; A4222; A4223; A4649; A4663; A4930; A6204; A7040; A9900; C1713; C1751; C1776; C1887; J0283